=== PATIENT | male | born 1960 | race Caucasian/White ===

== ENCOUNTER 2022-01-12 22:46 | Emergency (ER) | payer MEDICARE, MEDICAID, SELFPAY ==
[2022-01-12 22:55] VITALS: BP 148/87; PULSE 87; RESP 24; TEMP 37.1; O2SAT 93; BMI 34.9
--- NOTE | 2022-01-12 22:55 | XRR_ITS ---
PROCEDURE INFORMATION: Exam: XR Chest Exam date and time: 01/12/2022 11:22 PM Age: 61 years old Clinical indication: Dyspnea; Additional info: SOB TECHNIQUE: Imaging protocol: XR of the chest. Views: 1 view. COMPARISON: No relevant prior studies available. FINDINGS: Lungs: There is a background of centrilobular emphysema and mild pulmonary fibrosis. Strandy and linear opacities are seen in the lower hemithoraces, left slightly more prominent than right likely representing atelectasis. Pleural spaces: Unremarkable. No pleural effusion. No pneumothorax. Heart/Mediastinum: Unremarkable. No cardiomegaly. Bones/joints: Unremarkable. Other findings: A gas densities seen in the epigastrium likely representing a gas-filled viscus. XR/XR chest 1V portable [id number] IMPRESSION: 1. Background of centrilobular emphysema, mild pulmonary fibrosis and probable bilateral basilar atelectasis. 2. Gas-filled viscus seen in the epigastrium.
--- NOTE | 2022-01-12 22:55 | ECG_ITS ---
[facility] Test Date: 2022-01-12 Pat Name: Elvin Nunn Department: Room: Gender: Male Photograph Tinter: : 1960 Requested By: Bereket Caruso Order Number: [id number] Tayler MD: Laura Gusman M.D. Measurements Intervals [place] Rate: 85 P: 67 WA: 217 QRS: -79 QRSD: 82 T: 62 QT: 355 QTc: 424 Interpretive Statements SINUS RHYTHM WITH FIRST DEGREE AV BLOCK LEFT AXIS DEVIATION [QRS AXIS < -30] LOW QRS VOLTAGE IN EXTREMITY LEADS [QRS DEFLECTION < 0.5 mV IN LIMB LEADS] No previous ECG available for comparison Electronically Signed On 01-14-2022 7:29:21 CDT by Laura Gusman M.D. [id number] f
[2022-01-12 23:00] LABS: Basophils % 0.5 %; Eosinophils # 0.3 10^3/uL (0.0-0.8); Eosinophils % 4.6 %; Hematocrit 42.8 % (42.0-52.0); Hemoglobin 13.6 g/dL (11.7-16.6); Lymphocytes # 2.3 10^3/uL (0.8-4.8); Lymphocytes % 34.8 %; Mean Corpuscular HGB Conc 31.8 g/dL (30.0-36.0); Mean Corpuscular Hemoglobin 29.6 pg (28.0-34.0); Monocytes % 15.3 %; Neutrophils # 2.91 10^3/uL (1.8-7.7); Neutrophils % 44.3 %; Nucleated Red Blood Cells % 0 %; Platelet Count 207 10^3/cmm (130-400); Red Cell Distribution Width 13.4 % (12.1-15.1); White Blood Count 6.6 10^3/uL (4.0-10.0)
--- NOTE | 2022-01-12 23:00 | ED_ITS ---
HPI - SOB/Dyspnea General: Chief Complaint: Shortness of Breath/Dyspnea Stated Complaint: SOB Source: patient and EMS Mode of arrival: EMS Limitations: no limitations History of Present Illness: HPI Narrative: 61-year-old male who has a history of asthma states that he moved here from [place] in November has not seen a PCP here. He states that over the last 3 to 4 days he is just been having increasing wheezing and dyspnea along with a cough. He is on baseline oxygen at home as needed here he is 96% on room air. He denies any fever he states he has had a very dry cough that typical with his asthma. Associated symptoms: Deny abdominal pain, chest pain, fever(s), nausea or vomiting Review of Systems Const: Denies: fever(s), chills, body aches or change in appetite Eyes: Denies: blurry vision or eye discomfort ENMT: Denies: throat pain or dental pain Card: Denies: chest pain Resp: Reports: dyspnea and wheezing GI: Denies: abdominal pain, nausea, vomiting or diarrhea : Denies: dysuria Musc: Denies: neck pain or back pain Skin/Breast: Denies: rash Neuro: Denies: headache(s) Psych: Denies: depression Justino/Lymph: Denies: easy bruising All/Imm: Denies: urticaria Physical Exam Const: COMMON NORMALS: no acute distress, patient oriented x3 and healthy appearing HENMT: COMMON NORMALS: normocephalic and atraumatic HEAD & SCALP: normocephalic and atraumatic Eye: COMMON NORMALS: Equal, round and reactive pupils present and EOMs intact bilaterally PUPIL: Yes Equal, round and reactive pupils present Neck/C-Spine: COMMON NORMALS: full ROM and supple Chest: COMMONS NORMALS: normal inspection of the chest and normal palpation of entire chest wall Resp: COMMON NORMALS: normal respiratory effort, No retractions and No use of accessory muscles OTHER: mild wheezes Cardio: COMMON NORMALS: regular rate, regular rhythm and No murmurs present (Cardio) RATE: regular rate RHYTHM: regular rhythm GI: COMMON NORMALS: Normal to inspection, nondistended, normoactive bowel sounds present, Soft to palpation, non-tender and no masses PALPATION: Yes Soft to palpation Extremity: COMMON NORMALS: normal to inspection and full ROM Neuro: COMMON NORMALS: patient oriented x3, moves all extremities and no focal motor deficits Psych: COMMON NORMALS: mental status grossly normal, Normal thought process present and cooperative THOUGHT PROCESS: Normal thought process present Skin: COMMON NORMALS: no rashes or lesions noted and no wounds GENERAL SKIN EXAM: no rashes or lesions noted Course Vital Signs: Vital signs: Vital Signs Temperature 98.7 F 01/12/22 22:55 Pulse Rate 88 01/12/22 23:19 Respiratory Rate 15 01/12/22 23:19 Blood Pressure 148/87 01/12/22 22:55 Pulse Oximetry 96 01/12/22 23:19 MDM - SOB/Dyspnea Medical Decision Making Patient presents here with COPD exacerbation he feels much improved after steroids and breathing treatments his pulse ox 95% on room air. He has no signs of pneumonia will discharge on prednisone he is to follow-up with pulmonology return if worsening. Lab Data : 01/12/22 22:55 01/12/22 22:55 Labs/Radiology: Radiology Impressions Chest X-Ray 01/12/22 22:55 IMPRESSION: 1. Background of centrilobular emphysema, mild pulmonary fibrosis and probable bilateral basilar atelectasis. 2. Gas-filled viscus seen in the epigastrium. Laboratory Results WBC 6.6 10^3/uL (4.0-10.0) 01/12/22 22:55 RBC 4.60 10^6/uL (4.1-5.3) 01/12/22 22:55 Hgb 13.6 g/dL (11.7-16.6) 01/12/22 22:55 Hct 42.8 % (42.0-52.0) 01/12/22 22:55 MCV 93.0 fl (80-94) 01/12/22 22:55 MCH 29.6 pg (28.0-34.0) 01/12/22 22:55 MCHC 31.8 g/dL (30.0-36.0) 01/12/22 22:55 RDW 13.4 % (12.1-15.1) 01/12/22 22:55 Plt Count 207 10^3/cmm (130-400) 01/12/22 22:55 MPV 10.0 fL (7.4-10.4) 01/12/22 22:55 Neut % (Auto) 44.3 % 01/12/22 22:55 Lymph % (Auto) 34.8 % 01/12/22 22:55 [place] % (Auto) 15.3 % 01/12/22 22:55 Eos % (Auto) 4.6 % 01/12/22 22:55 Baso % (Auto) 0.5 % 01/12/22 22:55 Neut # (Auto) 2.91 10^3/uL (1.8-7.7) 01/12/22 22:55 Lymph # (Auto) 2.3 10^3/uL (0.8-4.8) 01/12/22 22:55 [place] # (Auto) 1.0 10^3/uL (0.2-0.9) H 01/12/22 22:55 Eos # (Auto) 0.3 10^3/uL (0.0-0.8) 01/12/22 22:55 Baso # (Auto) 0.0 10^3/uL (0.0-0.1) 01/12/22 22:55 Nucleated RBC % (auto) 0 % 01/12/22 22: Nucleated RBCs # 0.0 /100WBC 01/12/22 22:55 PT 12.10 SECONDS (12.1-14.9) 01/12/22 22:55 INR 0.86 (0.8-1.2) 01/12/22 22:55 Sodium 137 mmol/L (136-145) 01/12/22 22:55 Potassium 4.0 mmol/L (3.5-5.1) 01/12/22 22:55 Chloride 102 mmol/L (98-107) 01/12/22 22:55 Carbon Dioxide 27 mmol/L (22-29) 01/12/22 22:55 Anion Gap 12.0 (5-19) 01/12/22 22:55 BUN 17 mg/dL (8-23) 01/12/22 22:55 Creatinine 0.8 mg/dL (0.7-1.2) 01/12/22 22:55 GFR Calculation 98.0 mL/min (90-130) 01/12/22 22:55 Glucose 134 mg/dL (65-115) H 01/12/22 22:55 Calculated Osmolality 288 mOsm/kg (285-295) 01/12/22 22:55 Calcium 9.0 mg/dL (8.5-10.5) 01/12/22 22:55 Total Bilirubin 0.2 mg/dL (0.15-1.2) 01/12/22 22:55 AST 17 U/L (0-40) 01/12/22 22:55 ALT 15 U/L (0-41) 01/12/22 22:55 Alkaline Phosphatase 97 IU/L (40-130) 01/12/22 22:55 NT-Pro-B Natriuret Pep 85 pg/mL (0-125) 01/12/22 22:55 Total Protein 7.1 g/dL (6.6-8.7) 01/12/22 22:55 Albumin 3.8 g/dL (3.5-5.2) 01/12/22 22:55 Globulin 3.3 g/dL (1.3-4.6) 01/12/22 22:55 EKG Data EKG 1: I personally reviewed and interpreted this EKG as follows: EKG Interpretation Date: 01/12/22 EKG interpretation time: 22:54 Interpretation: Normal sinus rhythm no ST or T wave normalities QRS 82 QTC 398 Discharge Plan Discharge Patient Disposition: Home Clinical Impression: Asthma with exacerbation Qualifiers: Asthma severity: unspecified severity Asthma persistence: unspecified Qualified Code(s): J45.901 - Unspecified asthma with (acute) exacerbation Condition: Stable Prescriptions: New cephalexin 500 mg capsule 500 mg PO TID 7 Days Qty: 21 0RF prednisone 50 mg tablet 50 mg PO DAILY Qty: 5 0RF Discharge Orders: Discharge ED (Routine); Ordered 01/13/22 Ordered By: Bereket Caruso Referrals: Datar,Mark López MD [Physician] - 1-3 days Discharge Diet: Advance as tolerated Discharge Activity: Resume usual activity Patient Instructions: Asthma (ED) Coding Level of Care Code ED Cullet Crusher for Chg Fwd Exam Comprehensive
[2022-01-12 23:14] LABS: INR 0.86 (0.8-1.2)
[2022-01-12 23:19] VITALS: PULSE 88; RESP 15; O2SAT 96
[2022-01-12] MEDS: ipratropium-albuterol 3 mL Neb INHALATION (23:19)
[2022-01-12 23:27] LABS: Alanine Aminotransferase 15 U/L (0-41); Albumin Level 3.8 g/dL (3.5-5.2); Alkaline Phosphatase 97 IU/L (40-130); Aspartate Amino Transferase 17 U/L (0-40); Blood Urea Nitrogen 17 mg/dL (8-23); Carbon Dioxide 27 mmol/L (22-29); Chloride 102 mmol/L (98-107); Globulin 3.3 g/dL (1.3-4.6); Glucose 134 mg/dL (65-115); NT Pro B Type Natriuretic Pept 85 pg/mL (0-125); Osmolality Calculated 288 mOsm/kg (285-295); Sodium 137 mmol/L (136-145); Total Bilirubin 0.2 mg/dL (0.15-1.2); Total Protein 7.1 g/dL (6.6-8.7)
[2022-01-13 01:46] VITALS: BP 131/78; PULSE 85; RESP 20; O2SAT 92
--- NOTE | 2022-01-13 09:16 | DCPLANNER ---
Addendum entered by Stephie Saucedo 02/21/22 17:51: Patient had a follow up appointment scheduled with [facility] - patient did attend appointment. Addendum entered by Stephie Saucedo 01/14/22 15:35: Patient has a follow up appointment scheduled for Thursday, February 17, 2022 at 2:[address] Castellanos at [facility] for pulmonlogy. backpackers manager called patients sister and gave her the appointment information. Original Note: backpackers manager had message to schedule a follow up appointment for patient with [facility]. backpackers manager sent patients information to the front staff at [facility]. Patients information will be printed and reviewed. Clinic will notify lining caser of the appointment, lining caser will call patient with appointment information.
== END 2022-01-13 01:51 | disposition home or self-care (01) ==
PROVIDERS: Emergency Provider Emergency Medicine
DX: J45.901 Unspecified asthma with (acute) exacerbation (principal); Z99.81 Dependence on supplemental oxygen
CPT/HCPCS: 71045; 80053; 83880; 85025; 85610; 93005; 94640; 99283; J7611

== ENCOUNTER → 2022-02-17 13:39 | Outpatient (BNVA) | payer MEDICARE, MEDICAID, SELFPAY | PROVIDERS: Visit Provider Internal Medicine Pulmonary Disease | DX: J45.909 Unspecified asthma, uncomplicated (principal); J43.9 Emphysema, unspecified; J84.10 Pulmonary fibrosis, unspecified; R06.02 Shortness of breath; Z09 Encounter for follow-up examination after completed treatment for conditions other than malignant neoplasm; Z87.891 Personal history of nicotine dependence | CPT/HCPCS: 82785; 86003; 99204 ==

== ENCOUNTER 2022-03-26 12:39 | Outpatient (CLI) | payer MEDICARE, MEDICAID, SELFPAY ==
--- NOTE | 2022-03-26 13:15 | PFTS_ITS ---
Date of Study:03/26/22 Date of Dictation: 03/29/22 MECHANICS: Postbronchodilator forced vital capacity (FVC) is reduced. Postbronchodilator forced expiratory volume in one second (FEV1) is severely reduced. FEV1/FVC is reduced. There is significant response to bronchodilator FLOW VOLUME LOOP: Sloping of expiratory limb suggestive of airflow obstruction. LUNG VOLUMES: Total lung capacity (TLC) is normal. Residual volume (RV) is increased suggesting air trapping. DIFFUSING CAPACITY FOR CARBON MONOXIDE: mildly reduced. INTERPRETATION: The Spirometry showed severe airflow obstruction. There is significant response to bronchodilators. Lung volumes suggestive of moderate air trapping. There is mild gas transfer defect. Clinical correlation recommended. MTDD
--- NOTE | 2022-03-26 14:00 | CT_ITS ---
WS: [id number] CT CHEST HIGH-RESOLUTION TECHNIQUE: Noncontrast CT of the chest with coronal and sagittal reformatted images. High-resolution imaging with inspiration and expiration imaging. Supine imaging. CLINICAL INFORMATION: pulmonary fibrosis COMPARISON: None. DLP: 1892.[address] scans at [facility] use at least one of these dose optimization techniques: automated e xposure control; mA and/or kV adjustment per patient size (includes targeted exams where dose is matc hed to clinical indication); or iterative reconstruction. FINDINGS: Both lungs are well aerated. No focal pneumonia or pleural fluid. Subsegmental atelectasis in the RIG HT lower lobe and lingula. Subsegmental atelectasis with slight hazy groundglass infiltrates in the R IGHT upper lobe anteriorly likely inflammatory. Bronchiectasis in the RIGHT greater than LEFT lower l obes and RIGHT middle lobe with mild endobronchial thickening. No subpleural honeycombing. Normal caliber thoracic aorta. Coronary calcification. No mediastinal or hilar lymphadenopathy. No ax illary lymphadenopathy. Fluid distended stomach with air-fluid level. Normal GE junction. Adrenal glands are normal. Noncontr ast spleen is normal. Normal visualized noncontrast pancreas. Gallbladder is contracted. Normal calib er upper abdominal aorta. Mild thoracic kyphosis with Schmorl's nodes in the mid and lower thoracic s pine. Tiny esophageal hiatal hernia with mild circumferential thickening in the distal esophagus and GE junction. This can be seen with esophagitis. Recommend clinical correlation. This can be further e valuated with endoscopy. CT/CT chest wo con [id number] IMPRESSION: 1. No subpleural honeycombing. 2. Bronchiectasis in RIGHT greater than LEFT lower lobes with mild endobronchi al thickening. 3. Subsegmental atelectasis in the RIGHT lower lobe and lingula. 4. Slight subsegmental atelectasis in RIGHT upper lobe with vague hazy groundg lass opacities likely inflammatory. 5. Moderate chronic emphysematous changes. Mild diffuse air trapping on the ex piratory imaging. This may be effort related. 6. Mild circumferential diffuse thickening at the GE junction and distal esoph vivi. This can be seen with esophagitis but recommend follow-up with endoscopy to exclude neoplasm. No focal lesions. 7. No other significant findings.
== END 2022-03-26 12:40 | disposition home or self-care (01) ==
LOC: RT 12:42
PROVIDERS: PCP Family Medicine; Visit Provider Internal Medicine Pulmonary Disease
DX: J43.9 Emphysema, unspecified (principal); J84.10 Pulmonary fibrosis, unspecified
CPT/HCPCS: 71250; 94060; 94618; 94726; 94729; J7614

== ENCOUNTER → 2022-04-03 09:43 | Outpatient (BNVA) | payer MEDICARE, MEDICAID, SELFPAY | PROVIDERS: PCP Family Medicine; Visit Provider Internal Medicine Pulmonary Disease | DX: J44.9 Chronic obstructive pulmonary disease, unspecified (principal); J45.50 Severe persistent asthma, uncomplicated; Z79.52 Long term (current) use of systemic steroids; K21.9 Gastro-esophageal reflux disease without esophagitis; Z87.891 Personal history of nicotine dependence | CPT/HCPCS: 99214 ==

== ENCOUNTER → 2022-05-07 14:14 | Outpatient (BNVA) | payer MEDICARE, MEDICAID, SELFPAY | PROVIDERS: PCP Family Medicine; Visit Provider Nurse Practitioner | DX: R25.1 Tremor, unspecified (principal); F41.9 Anxiety disorder, unspecified; J45.909 Unspecified asthma, uncomplicated; Z87.891 Personal history of nicotine dependence | CPT/HCPCS: 82607; 84443; 99204 ==

== ENCOUNTER → 2022-06-11 09:46 | Outpatient (BNVA) | payer MEDICARE, MEDICAID, SELFPAY | PROVIDERS: PCP Family Medicine; Visit Provider Internal Medicine Pulmonary Disease | DX: J45.50 Severe persistent asthma, uncomplicated (principal); J44.9 Chronic obstructive pulmonary disease, unspecified; K21.9 Gastro-esophageal reflux disease without esophagitis; H53.8 Other visual disturbances; Z79.52 Long term (current) use of systemic steroids; J82.83 Eosinophilic asthma; Z87.891 Personal history of nicotine dependence; Z77.22 Contact with and (suspected) exposure to environmental tobacco smoke (acute) (chronic) | CPT/HCPCS: 99214 ==

== ENCOUNTER 2022-06-20 10:46 | Emergency (ER) | payer MEDICARE, MEDICAID, SELFPAY ==
[2022-06-20] VITALS (12 sets, daily range): BP systolic 117–142; BP diastolic 70–95; PULSE 78–91; RESP 16–21; TEMP 36.7; O2SAT 87–94
--- NOTE | 2022-06-20 10:57 | ECG_ITS ---
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 Measurements Intervals [place] Rate: 79 P: 23 NM: 214 QRS: 94 QRSD: 85 T: 25 QT: 357 QTc: 411 Interpretive Statements SINUS RHYTHM WITH FIRST DEGREE AV BLOCK BORDERLINE RIGHT AXIS DEVIATION [QRS AXIS > 90] Compared to ECG 01/12/2022 22:54:24 Left-axis deviation no longer present Electronically Signed On 06-20-2022 16:23:10 CDT by Laura Gusman M.D. [id number] f
--- NOTE | 2022-06-20 10:58 | XR_ITS ---
WS: [id number] Portable AP upright chest, 06/20/2022 Clinical Data: dyspnea/cough Comparison: Portable chest, 01/12/2022. Findings: No nodules, masses or effusions are seen. The heart is normal. The pulmonary vascularity is not increased. No pneumonia or pneumothorax is seen. The aortic arch and descending thoracic aorta s hows tortuosity. There is minimal bibasilar atelectasis. XR/XR chest 1V portable [id number] Impression: Atherosclerosis.
--- NOTE | 2022-06-20 11:08 | W.ED.ASTHMA ---
HPI - Asthma General: Chief Complaint: Asthma Stated Complaint: ASTHMA EXACERBATION Time Seen by Provider: 06/20/22 10:47 Source: patient Mode of arrival: ambulatory History of Present Illness: 62-year-old male brought in by ambulance complaining of asthma exacerbation. Use nebulizer at home did seem to help for mornings not been able to find his inhaler. Patient has history of significant asthma with pulmonary fibrosis he seen pulmonology in the past he supposed to be on oxygen continuously but is not been using it. He avoids it because he only has a concentrator that is a large and mobile unit he does not have it long enough oxygen tubing to get around the house and when he uses it he cannot leave the house so he just goes without a good portion of the time. He denies any chest pain any fever sweats or chills. MD complaint: asthma attack , shortness of breath and wheezing Onset (ago): hour(s) Severity: moderate Associated symptoms: Reports productive cough; Deny chest pain, fever(s), hemoptysis, leg edema, non-productive cough or syncope Asthma History: adult onset and history of frequent attacks Treatments Prior to Arrival: inhaled bronchodilator Review of Systems Const: Denies: fever(s), chills, fatigue or malaise ENMT: Denies: throat pain, ear or mastoid pain, nasal discharge or nasal congestion Card: Denies: chest pain or syncope Resp: Reports: dyspnea, productive cough and wheezing; Denies: non-productive cough or hemoptysis GI: Denies: abdominal pain, nausea, vomiting, hematemesis, coffee ground emesis, diarrhea, constipation, bloating, hematochezia or melena : Denies: flank pain, difficulty urinating, dysuria, urinary frequency or urinary urgency Skin/Breast: Denies: rash or pruritus PFSH ED PFSH: Medical History Cognitive impairment Pulmonary emphysema with fibrosis of lung Surgical History History of cataract extraction bilateral History of tonsillectomy Hx of appendectomy Family History Other Dementia Stroke Denies family history of Diabetes CAD (coronary artery disease) Clotting disorder Hyperlipidemia Psychiatric illness Chronic kidney disease (CKD) Suicide Anesthesia complication Bleeding disorder Family history of premature coronary artery disease Lung disease Cancer Hypertension Social History Smoking and tobacco status: former smoker Quit status (tobacco): has quit using tobacco Year quit tobacco: 2017 Former quit date comment: 1pack per month x 2 years Alcohol intake: never History of recent travel: No Physical Exam Const: COMMON NORMALS: no acute distress GENERAL APPEARANCE: cooperative and comfortable ORIENTATION/CONSCIOUSNESS: Yes awake, Yes oriented to person, Yes oriented to place and Yes oriented to time HENMT: COMMON NORMALS: normocephalic, atraumatic and hearing grossly normal bilaterally HEAD & SCALP: normocephalic and atraumatic FACE & SINUS: no fluctuance Resp: EFFORT & INSPECTION: Yes tachypneic and Yes labored AUSCULTATION: rhonchi and wheezes OTHER: Significant improvement after nebulizer treatment Cardio: COMMON NORMALS: regular rate, regular rhythm and No murmurs present (Cardio) RATE: regular rate RHYTHM: regular rhythm GI: COMMON NORMALS: Soft to palpation and No hepatosplenomegaly present AUSCULTATION: Yes normoactive bowel sounds PALPATION: Yes Soft to palpation, No Tenderness to palpation present (GI), No Guarding due to palpation present (GI) and Yes No hepatosplenomegaly present Extremity: COMMON NORMALS: normal to inspection, capillary refill normal, no clubbing, cyanosis or edema, no calf tenderness and no pedal edema Neuro: SENSORIUM/ORIENTATION: Yes oriented to person, Yes oriented to place and Yes oriented to time Skin: COMMON NORMALS: no rashes or lesions noted GENERAL SKIN EXAM: no rashes or lesions noted Course Vital Signs: Vital signs: Vital Signs Temperature 98.1 F 06/20/22 10:48 Pulse Rate 80 06/20/22 15:35 Respiratory Rate 16 06/20/22 15:35 Blood Pressure 120/70 06/20/22 15:35 Pulse Oximetry 91 06/20/22 15:35 Oxygen Delivery Me thod 06/20/22 15:00 Oxygen Flow Rate 2 06/20/22 15:00 MDM - Asthma Medical Decision Making Improved with steroid and nebs. Discharged home on tapering steroids we will also get him set up for oxygen concentrator. Use albuterol every 4 hours while awake regularly follow-up with pulmonology next week return if is worsening problems. Medical Records I reviewed the patient's medical records. Lab Data I reviewed the patient's lab results. : 06/20/22 11:23 06/20/22 11:23 Radiology Impressions Chest X-Ray 06/20/22 10:58 Impression: Atherosclerosis. Laboratory Results WBC 7.4 10^3/uL (4.0-10.0) 06/20/22 11: RBC 4.87 10^6/uL (4.1-5.3) 06/20/22 11:23 Hgb 14.2 g/dL (11.7-16.6) 06/20/22 11: Hct 44.7 % (42.0-52.0) 06/20/22 11: MCV 91.8 fl (80-94) 06/20/22 11:23 MCH 29.2 pg (28.0-34.0) 06/20/22 11: MCHC 31.8 g/dL (30.0-36.0) 06/20/22 11:23 RDW 13.6 % (12.1-15.1) 06/20/22 11:23 Plt Count 171 10^3/cmm (130-400) 06/20/22 11: MPV 10.1 fL (7.4-10.4) 06/20/22 11:23 Neut % (Auto) 60.8 % 06/20/22 11:23 Lymph % (Auto) 22.7 % 06/20/22 11:23 [place] % (Auto) 11.8 % 06/20/22 11:23 Eos % (Auto) 3.9 % 06/20/22 11:23 Baso % (Auto) 0.4 % 06/20/22 11:23 Neut # (Auto) 4.52 10^3/uL (1.8-7.7) 06/20/22 11:23 Lymph # (Auto) 1.7 10^3/uL (0.8-4.8) 06/20/22 11:23 [place] # (Auto) 0.9 10^3/uL (0.2-0.9) 06/20/22 11:23 Eos # (Auto) 0.3 10^3/uL (0.0-0.8) 06/20/22 11:23 Baso # (Auto) 0.0 10^3/uL (0.0-0.1) 06/20/22 11:23 Nucleated RBC % (auto) 0 % 06/20/22 11:23 Nucleated RBCs # 0.0 /100WBC 06/20/22 11:23 Specimen Type Arterial 06/20/22 11:14 Sample Site Radial, left 06/20/22 11:14 ABG pH 7.41 (7.35-7.45) 06/20/22 11:14 ABG pCO2 46.5 mmHg (35-45) H 06/20/22 11:14 ABG pO2 63.5 mmHg (80.0-100.0) L 06/20/22 11:14 ABG HCO3 29.6 mmol/L (22-26) H 06/20/22 11:14 ABG O2 Saturation 92.6 06/20/22 11:14 ABG Base Excess 4.1 mmol/L (-2.0-2.0) H 06/20/22 11:14 Wilmer Test Pos 06/20/22 11:14 A-a O2 Gradient 4.0 mmHg (5-10) L 06/20/22 11:14 Hematocrit 45.0 % (42-52) 06/20/22 11:14 Hgb O2 Saturation 91.7 % (95-100) L 06/20/22 11:14 Carboxyhemoglobin < 1.0 %THgb (0.4-20.1) 06/20/22 11:14 Methemoglobin 0.2 % (0.4-1.5) L 06/20/22 11:14 Total Hemoglobin 14.7 g/dL (14-18) 06/20/22 11:14 Sodium 137.0 mmol/L (131-143) 06/20/22 11:14 Potassium 3.9 mmol/L (3.5-5.0) 06/20/22 11:14 Glucose 98.0 mg/dL (70-115) 06/20/22 11:14 Ionized Calcium 1.2 mmol/L (1.1-1.4) 06/20/22 11:14 O2 Delivery Device Nc 06/20/22 11:14 O2 Liters/Min 2.0 % 06/20/22 11:14 Soil Technologist ID Cak 06/20/22 11:14 Sodium 138 mmol/L (136-145) 06/20/22 11:23 Potassium 4.2 mmol/L (3.5-5.1) 06/20/22 11:23 Chloride 100 mmol/L (98-107) 06/20/22 11:23 Carbon Dioxide 28 mmol/L (22-29) 06/20/22 11:23 Anion Gap 14.2 (5-19) 06/20/22 11:23 BUN 18 mg/dL (8-23) 06/20/22 11:23 Creatinine 0.8 mg/dL (0.7-1.2) 06/20/22 11:23 GFR Calculation 97.6 mL/min (90-130) 06/20/22 11:23 Glucose 102 mg/dL (65-115) 06/20/22 11:23 Calculated Osmolality 288 mOsm/kg (285-295) 06/20/22 11:23 Calcium 8.9 mg/dL (8.5-10.5) 06/20/22 11:23 Discharge Plan Discharge Patient Disposition: Home Clinical Impression: Pulmonary emphysema with fibrosis of lung Condition: Stable Prescriptions: New prednisone 20 mg tablet 20 mg PO TID Qty: 15 0RF Rx Instructions: 1 p.o. 3 times daily x3 days, 1 p.o. twice daily x2 days, 1 p.o. daily x2 days No Action montelukast [Singulair] 10 mg tablet 10 mg PO DAILY Qty: 30 3RF primidone 50 mg tablet 50 mg PO BEDTIME Qty: 30 2RF albuterol sulfate 2.5 mg /3 mL (0.083 %) solution for nebulization 2.5 mg inhalation Q4H PRN (Reason: shortness of breath or wheezing) Qty: 180 0RF albuterol sulfate 90 mcg/actuation HFA aerosol inhaler 2 puff inhalation Q6H PRN (Reason: shortness of breath or wheezing) Qty: 8.5 2RF Breztri Aerosphere 160-9-4.8 mcg/actuation HFA aerosol inhaler 2 inh inhalation BID Qty: 10.7 3RF citalopram 20 mg tablet 10 mg PO DAILY Qty: 90 0RF pantoprazole 40 mg tablet,delayed release (DR/EC) 40 mg PO DAILY Qty: 30 2RF Fasenra Pen 30 mg/mL auto-injector 30 mg SUBCUT Q28D Qty: 1 2RF Rx Instructions: Loading dose Symbicort 160-4.5 mcg/actuation HFA aerosol inhaler 2 puff INHALATION BID NyQuil 7.5-60-30-1,000 mg/30 mL Liquid 30 ml PO EVERY OTHER DAY Tussin 100 mg/5 mL Liquid 200 mg PO Q4H PRN (Reason: Congestion) Discharge Orders: Discharge ED (Routine); Ordered 06/20/22 Ordered By: Campbell Espinoza Other Ambulatory Orders: DME: Oxygen (Order) Location: None Selected Ordered By: Campbell Espinoza Referrals: Shweta Márquez DO [Primary Care Provider] - Discharge Diet: Usual diet Discharge Activity: Limit activity as instructed Patient Instructions: Opioid Safety, Pain Management Activity Restrictions/Additional Instructions: Follow up with Dr. Fortune within the next week, Use oxygen continiously. Coding Level of Care Code ED Digester Operator Helper for [place]
--- NOTE | 2022-06-20 11:09 | PC.NURSE ---
pt reports an asthma attack that started at 0900 this morning and could not find his inhaler so he used his nebulizer with minimal improvement. denies chest pain, nausea, dizziness, or lightheadedness. reports a headache. pt lung sounds deminished but clear throughout. skin pink/warm/dry. pt speaking in complete sentences without difficulty.
[2022-06-20] MEDS: ipratropium-albuterol 3 mL Neb INHALATION (11:14)
[2022-06-20 11:26] LABS: ABG PCO2 46.5 mmHg (35-45); ABG PH Result 7.41 (7.35-7.45); Base Excess ABG 4.1 mmol/L (-2.0-2.0); Blood Gas Allen Test Pos; Blood Gas Operator Identificat CAK; Blood Gas Sample Site Radial, left; Blood Gas Sample Type Arterial; Carboxyhemoglobin < 1.0 %THgb (0.4-20.1); HCO3 ABG 29.6 mmol/L (22-26); HGB O2 Sat 91.7 % (95-100); Ionized Calcium Level - ABG 1.2 mmol/L (1.1-1.4); Methemoglobin 0.2 % (0.4-1.5); Oxygen Device NC; Oxygen Saturation ABG 92.6; PO2 ABG 63.5 mmHg (80.0-100.0); Potassium Level - ABG 3.9 mmol/L (3.5-5.0); Total Hemoglobin 14.7 g/dL (14-18)
[2022-06-20 11:32] LABS: Basophils % 0.4 %; Eosinophils # 0.3 10^3/uL (0.0-0.8); Eosinophils % 3.9 %; Hematocrit 44.7 % (42.0-52.0); Hemoglobin 14.2 g/dL (11.7-16.6); Lymphocytes # 1.7 10^3/uL (0.8-4.8); Lymphocytes % 22.7 %; Mean Corpuscular HGB Conc 31.8 g/dL (30.0-36.0); Mean Corpuscular Hemoglobin 29.2 pg (28.0-34.0); Mean Corpuscular Volume 91.8 fl (80-94); Mean Platelet Volume 10.1 fL (7.4-10.4); Monocytes # 0.9 10^3/uL (0.2-0.9); Monocytes % 11.8 %; Neutrophils # 4.52 10^3/uL (1.8-7.7); Neutrophils % 60.8 %; Nucleated Red Blood Cells % 0 %; Platelet Count 171 10^3/cmm (130-400); Red Blood Count 4.87 10^6/uL (4.1-5.3); Red Cell Distribution Width 13.6 % (12.1-15.1); White Blood Count 7.4 10^3/uL (4.0-10.0)
[2022-06-20 11:53] LABS: Anion Gap 14.2 (5-19); Blood Urea Nitrogen 18 mg/dL (8-23); Calcium 8.9 mg/dL (8.5-10.5); Carbon Dioxide 28 mmol/L (22-29); Chloride 100 mmol/L (98-107); Glomerular Filtration Rate 97.6 mL/min (90-130); Glucose 102 mg/dL (65-115); Osmolality Calculated 288 mOsm/kg (285-295); Potassium 4.2 mmol/L (3.5-5.1); Sodium 138 mmol/L (136-145)
--- NOTE | 2022-06-20 12:46 | PC.NURSE ---
notified by pt that he does not have any portable oxygen but he does have a concentrator at home. physician notified.
--- NOTE | 2022-06-20 14:56 | PC.NURSE ---
pt resting in bed, family at bedside. discharge pending delivery of portable oxygen
== END 2022-06-20 15:36 | disposition home or self-care (01) ==
PROVIDERS: Emergency Provider Family Medicine; PCP Family Medicine
DX: J45.909 Unspecified asthma, uncomplicated (principal); J43.9 Emphysema, unspecified; J84.10 Pulmonary fibrosis, unspecified
CPT/HCPCS: 36600; 71045; 80048; 80051; 82330; 82805; 85025; 93005; 94640; 96374; 99285; J2930

== ENCOUNTER 2022-07-01 12:28 | Outpatient (CLI) | payer MEDICARE, MEDICAID, SELFPAY ==
--- NOTE | 2022-07-01 11:45 | MR_ITS ---
WS: [id number] MRI BRAIN WITH AND WITHOUT CONTRAST HISTORY: Double vision and memory loss for 2 months. COMPARISON: None available. TECHNIQUE: Multiplanar imaging performed through the brain with MultiHance 20 ml's IV. No acute infarcts are seen. Khalil-white matter differentiation is well preserved. Very mild small vess el ischemic disease in the frontotemporal lobes. No prior infarct. No susceptibility artifacts or prior lacunar infarcts. Ventricles and extra-axial spaces are normal. Clivus and pituitary gland are normal. Visualized posterior fossa and brainstem are also normal. Postcontrast images are negative for masses or vascular malformations. Dural venous sinuses are normal. Paranasal sinuses: Well aerated with no significant disease. Mastoid air cells: Normal. Calvarium and scalp: Normal. MR/MR head wo/w con [id number] IMPRESSION: 1. No acute infarct or mass. 2. Mild small vessel ischemic disease. 3. Normal size ventricles.
[2022-07-01] MEDS: gadobenate dimeglumine 20 mL vial IV (13:21)
== END 2022-07-01 12:29 | disposition home or self-care (01) ==
LOC: RAD 12:29
PROVIDERS: PCP Family Medicine; Visit Provider Nurse Practitioner
DX: R25.1 Tremor, unspecified (principal); R41.89 Other symptoms and signs involving cognitive functions and awareness
CPT/HCPCS: 70553

== ENCOUNTER 2022-07-04 09:41 | Outpatient (CLI) | payer MEDICARE, MEDICAID, SELFPAY ==
--- NOTE | 2022-07-04 10:15 | USCV_ITS ---
Elvin Nunn Age: 62 Gender: M : 1960 Exam Date: 07/04/2022 10:21 Ordering Phys: Shweta Márquez DO Technologist: Sabi Landry Exam Location: [facility] – [place] Indication: SWOLLEN LT LEG HISTORY: Swollen Left Leg PROCEDURES: Venous duplex imaging was performed in only the left lower extremity. The following venous structures were evaluated: common femoral vein, profunda vein, proximal portion of the greater saphenous vein, superficial femoral vein, and the popliteal vein. In addition, the posterior tibial and peroneal trunk were evaluated. Serial compression, augmentation maneuvers, and spectral Doppler flow evaluation were performed. FINDINGS: Normal 2-D Doppler and augmentation and compressibility throughout the lower extremity venous structures. Additional imaging through the proximal calf veins also reveals no thrombus. Limited evaluation of the greater saphenous vein is patent with no thrombus. CONCLUSIONS No DVT left lower extremity. Dr. Yolanda Wiley DO (Electronically Signed) Final Date: 04 July 2022 15:24 S
== END 2022-07-04 09:42 | disposition home or self-care (01) ==
PROVIDERS: PCP Family Medicine; Visit Provider Family Medicine
DX: M79.605 Pain in left leg (principal); M79.89 Other specified soft tissue disorders
CPT/HCPCS: 93971

== ENCOUNTER 2022-08-04 06:51 | Outpatient (CLI) | payer MEDICARE, MEDICAID, SELFPAY ==
--- NOTE | 2022-08-04 06:15 | USCV_ITS ---
Elvin Nunn Age: 62 Gender: M : 1960 Exam Date: 08/04/2022 07:02 Ordering Phys: Mark Fortune MD Technologist: CANDIDO [place] [facility] [place]: [place] hand/leg weakness Risk Factors: Previous Vascular Surgery: Right Brachial BP: / Left Brachial BP: / Right Left Velocity (cm/s) Spectral Plaque Velocity (cm/s) Spectral Plaque Syst/Diast Broadening Syst/Diast Broadening 44.00/ 15.80 Prox CCA 89.30 / 33.40 46.00/ 13.80 Mid CCA 61.40 / 26.40 41.40/ 15.80 Distal CCA 55.20 / 28.00 53.60/ 21.80 Prox ICA 72.20 / 36.50 44.70/ 17.10 Mid ICA 79.20 / 32.60 62.40/ 25.60 Distal ICA 35.80 / 16.60 97.90 ECA 89.30 1.36 ICA/CCA 0.89 Antegrade Vertebral Antegrade 19.00/ 4.70 cm/s 49.10/ 18.20 cm/s Tri Subclavian Tri 84.10 126.8 0 CONCLUSIONS Right ICA stenosis <50%. Mild atheromatous plaque right carotid bulb/ICA. Left ICA stenosis <50%. Mild atheromatous plaque left carotid bulb/ICA. Normal antegrade Doppler flow noted in the right vertebral artery. Normal antegrade Doppler flow noted in the left vertebral artery. Roddy Anand MD (Electronically Signed) Final Date: 04 August 2022 09:41 S
== END 2022-08-04 06:52 | disposition home or self-care (01) ==
LOC: RAD 06:53
PROVIDERS: PCP Family Medicine; Visit Provider Internal Medicine Pulmonary Disease
DX: R53.1 Weakness (principal); I65.23 Occlusion and stenosis of bilateral carotid arteries
CPT/HCPCS: 93880

== ENCOUNTER 2022-08-07 07:21 | Emergency (ER) | payer MEDICARE, MEDICAID, SELFPAY ==
[2022-08-07] VITALS (7 sets, daily range): BP systolic 105–126; BP diastolic 69–73; PULSE 72–94; RESP 18–20; TEMP 36.6; O2SAT 93–97
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
--- NOTE | 2022-08-07 07:30 | XR_ITS ---
WS: [id number] Portable AP upright chest, 08/07/2022 Clinical Data: cough, sob Comparison: Portable chest, 06/20/2022 Findings: No nodules, masses or effusions are seen. The heart is normal. The pulmonary vascularity is not increased. No pneumonia or pneumothorax is seen. The aortic arch and descending thoracic aorta s how minimal tortuosity. XR/XR chest 1V portable [id number] Impression: Atherosclerosis.
--- NOTE | 2022-08-07 08:00 | PC.NURSE ---
pt placed on continuous nibp ,spo2, and cm
[2022-08-07] MEDS: ipratropium-albuterol 3 mL Neb INHALATION (08:01)
[2022-08-07] MEDS: benzonatate 100 mg Capsule 200 MG PO (08:03)
[2022-08-07 08:06] LABS: Basophils % 0.2 %; Eosinophils # 0.3 10^3/uL (0.0-0.8); Eosinophils % 5.7 %; Hematocrit 40.7 % (42.0-52.0); Lymphocytes # 0.9 10^3/uL (0.8-4.8); Mean Corpuscular HGB Conc 31.9 g/dL (30.0-36.0); Mean Corpuscular Hemoglobin 29.4 pg (28.0-34.0); Mean Corpuscular Volume 92.1 fl (80-94); Monocytes # 0.8 10^3/uL (0.2-0.9); Monocytes % 16.1 %; Neutrophils # 2.83 10^3/uL (1.8-7.7); Neutrophils % 59.4 %; Nucleated Red Blood Cells % 0 %; Platelet Count 238 10^3/cmm (130-400); Red Blood Count 4.42 10^6/uL (4.1-5.3); Red Cell Distribution Width 13.1 % (12.1-15.1); White Blood Count 4.8 10^3/uL (4.0-10.0)
[2022-08-07 08:39] LABS: Alanine Aminotransferase 11 U/L (0-41); Albumin Level 3.5 g/dL (3.5-5.2); Alkaline Phosphatase 82 U/L (40-130); Aspartate Amino Transferase 16 U/L (0-40); Blood Urea Nitrogen 14 mg/dL (8-23); Calcium 8.5 mg/dL (8.5-10.5); Carbon Dioxide 27 mmol/L (22-29); Chloride 102 mmol/L (98-107); Globulin 3.1 g/dL (1.3-4.6); Glomerular Filtration Rate 97.6 mL/min (90-130); Glucose 92 mg/dL (65-115); Osmolality Calculated 286 mOsm/kg (285-295); Sodium 138 mmol/L (136-145); Total Bilirubin 0.2 mg/dL (0.15-1.2); Total Protein 6.6 g/dL (6.6-8.7)
--- NOTE | 2022-08-07 12:52 | ED_ITS ---
HPI - SOB/Dyspnea General: Chief Complaint: Shortness of Breath/Dyspnea Stated Complaint: SOB Time Seen by Provider: 08/07/22 07:21 History of Present Illness: HPI Narrative: 59 Associated symptoms: Deny chest pain, dizziness, fever(s), lightheadedness, nausea or vomiting Review of Systems Const: Denies: fever(s) or chills Eyes: Denies: change in vision or blurry vision Card: Denies: chest pain or lightheadedness Resp: Reports: dyspnea; Denies: wheezing or pain on inspiration GI: Denies: nausea, vomiting or diarrhea : Denies: flank pain, difficulty urinating or urinary frequency Skin/Breast: Denies: rash or pruritus Neuro: Denies: headache(s) or dizziness PFSH ED PFSH: Medical History Cognitive impairment Pulmonary emphysema with fibrosis of lung Surgical History History of cataract extraction bilateral History of tonsillectomy Hx of appendectomy Family History Other Dementia Stroke Denies family history of Diabetes CAD (coronary artery disease) Clotting disorder Hyperlipidemia Psychiatric illness Chronic kidney disease (CKD) Suicide Anesthesia complication Bleeding disorder Family history of premature coronary artery disease Lung disease Cancer Hypertension Social History Smoking and tobacco status: former smoker Quit status (tobacco): has quit using tobacco Year quit tobacco: 2018 Former quit date comment: 1pack per month x 2 years Alcohol intake: never History of recent travel: No Physical Exam Const: COMMON NORMALS: no acute distress and alert HENMT: COMMON NORMALS: normocephalic, hearing grossly normal bilaterally and moist oral mucous membranes HEAD & SCALP: normocephalic Chest: COMMONS NORMALS: normal inspection of the chest Resp: EFFORT & INSPECTION: Yes able to speak in complete sentences and No respiratory distress AUSCULTATION: diminished lung sounds diffuse Cardio: RATE: tachycardic RHYTHM: abnormal rhythm GI: COMMON NORMALS: Soft to palpation and non-tender PALPATION: Yes Soft to palpation Extremity: COMMON NORMALS: normal to inspection and capillary refill normal Neuro: COMMON NORMALS: moves all extremities, no focal motor deficits and no sensory deficits noted SENSORIUM/ORIENTATION: Yes alert Psych: COMMON NORMALS: mental status grossly normal, cooperative and speech normal SPEECH: Yes normal speech Skin: COMMON NORMALS: no rashes or lesions noted GENERAL SKIN EXAM: no rashes or lesions noted Course Vital Signs: Vital signs: Vital Signs Temperature 97.9 F 08/07/22 07:21 Pulse Rate 94 08/07/22 09:24 Respiratory Rate 20 H 08/07/22 09:24 Blood Pressure 109/69 08/07/22 09:24 Pulse Oximetry 94 08/07/22 09:24 Oxygen Delivery Me thod 08/07/22 08:02 Oxygen Flow Rate 2 08/07/22 08:02 MDM - SOB/Dyspnea Lab Data : 08/07/22 07:57 08/07/22 07:57 Labs/Radiology: Radiology Impressions Chest X-Ray 08/07/22 07:30 Impression: Atherosclerosis. Laboratory Results WBC 4.8 10^3/uL (4.0-10.0) 08/07/22 07:57 RBC 4.42 10^6/uL (4.1-5.3) 08/07/22 07:57 Hgb 13.0 g/dL (11.7-16.6) 08/07/22 07:57 Hct 40.7 % (42.0-52.0) L 08/07/22 07:57 MCV 92.1 fl (80-94) 08/07/22 07:57 MCH 29.4 pg (28.0-34.0) 08/07/22 07:57 MCHC 31.9 g/dL (30.0-36.0) 08/07/22 07:57 RDW 13.1 % (12.1-15.1) 08/07/22 07:57 Plt Count 238 10^3/cmm (130-400) 08/07/22 07:57 MPV 10.0 fL (7.4-10.4) 08/07/22 07:57 Neut % (Auto) 59.4 % 08/07/22 07:57 Lymph % (Auto) 18.0 % 08/07/22 07:57 [place] % (Auto) 16.1 % 08/07/22 07:57 Eos % (Auto) 5.7 % 08/07/22 07:57 Baso % (Auto) 0.2 % 08/07/22 07:57 Neut # (Auto) 2.83 10^3/uL (1.8-7.7) 08/07/22 07:57 Lymph # (Auto) 0.9 10^3/uL (0.8-4.8) 08/07/22 07:57 [place] # (Auto) 0.8 10^3/uL (0.2-0.9) 08/07/22 07:57 Eos # (Auto) 0.3 10^3/uL (0.0-0.8) 08/07/22 07:57 Baso # (Auto) 0.0 10^3/uL (0.0-0.1) 08/07/22 07:57 Nucleated RBC % (auto) 0 % 08/07/22 07:57 Nucleated RBCs # 0.0 /100WBC 08/07/22 07:57 Sodium 138 mmol/L (136-145) 08/07/22 07:57 Potassium 4.0 mmol/L (3.5-5.1) 08/07/22 07:57 Chloride 102 mmol/L (98-107) 08/07/22 07:57 Carbon Dioxide 27 mmol/L (22-29) 08/07/22 07:57 Anion Gap 13.0 (5-19) 08/07/22 07:57 BUN 14 mg/dL (8-23) 08/07/22 07:57 Creatinine 0.8 mg/dL (0.7-1.2) 08/07/22 07:57 GFR Calculation 97.6 mL/min (90-130) 08/07/22 07:57 Glucose 92 mg/dL (65-115) 08/07/22 07:57 Calculated Osmolality 286 mOsm/kg (285-295) 08/07/22 07:57 Calcium 8.5 mg/dL (8.5-10.5) 08/07/22 07:57 Magnesium 2.0 mg/dL (1.7-2.3) 08/07/22 07:57 Total Bilirubin 0.2 mg/dL (0.15-1.2) 08/07/22 07:57 AST 16 U/L (0-40) 08/07/22 07:57 ALT 11 U/L (0-41) 08/07/22 07:57 Alkaline Phosphatase 82 U/L (40-130) 08/07/22 07:57 Total Protein 6.6 g/dL (6.6-8.7) 08/07/22 07:57 Albumin 3.5 g/dL (3.5-5.2) 08/07/22 07:57 Globulin 3.1 g/dL (1.3-4.6) 08/07/22 07:57 Discharge Plan Discharge Patient Disposition: Home Clinical Impression: Asthma with exacerbation Condition: Stable Prescriptions: New prednisone 20 mg tablet 40 mg PO DAILY 3 Days Qty: 6 0RF Rx Instructions: please start on 08/08/22 azithromycin 250 mg tablet See Rx Instructions .ROUTE .COMPLEX Qty: 6 0RF Rx Instructions: For 250 mg dose pack: take 500 mg today (day 1), then 250 mg for 4 days (days 2-5) benzonatate 100 mg capsule 100 mg PO Q6H PRN (Reason: cough) Qty: 14 0RF No Action montelukast [Singulair] 10 mg tablet 10 mg PO DAILY Qty: 30 3RF albuterol sulfate 90 mcg/actuation HFA aerosol inhaler 2 puff inhalation Q6H PRN (Reason: shortness of breath or wheezing) Qty: 8.5 2RF Breztri Aerosphere 160-9-4.8 mcg/actuation HFA aerosol inhaler 2 inh inhalation BID Qty: 10.7 3RF Fasenra Pen 30 mg/mL auto-injector 30 mg SUBCUT Q28D Qty: 1 2RF Rx Instructions: Loading dose cephalexin 500 mg capsule 500 mg PO TID 10 Days Qty: 30 0RF furosemide [Lasix] 20 mg tablet 20 mg PO QAM Qty: 14 0RF albuterol sulfate 2.5 mg /3 mL (0.083 %) solution for nebulization 2.5 mg inhalation Q4H PRN (Reason: shortness of breath or wheezing) Qty: 180 0RF citalopram 20 mg tablet See Rx Instructions .ROUTE .COMPLEX Qty: 90 0RF Dose Instruction: Take 1 tablet by mouth once daily Rx Instructions: Take 1 tablet by mouth once daily pantoprazole 40 mg tablet,delayed release (DR/EC) See Rx Instructions .ROUTE .COMPLEX Qty: 30 0RF Dose Instruction: Take 1 tablet by mouth once daily Rx Instructions: Take 1 tablet by mouth once daily primidone 50 mg tablet See Rx Instructions .ROUTE .COMPLEX Qty: 30 0RF Dose Instruction: TAKE 1 TABLET BY MOUTH AT BEDTIME Rx Instructions: TAKE 1 TABLET BY MOUTH AT BEDTIME Symbicort 160-4.5 mcg/actuation HFA aerosol inhaler 2 puff INHALATION BID NyQuil 7.5-60-30-1,000 mg/30 mL Liquid 30 ml PO EVERY OTHER DAY Tussin 100 mg/5 mL Liquid 200 mg PO Q4H PRN (Reason: Congestion) Discharge Orders: Discharge ED (Routine); Ordered 08/07/22 Ordered By: Romeo Moody Referrals: Shweta Márquez DO [Primary Care Provider] - Discharge Diet: Advance as tolerated Discharge Activity: Resume usual activity and Increase activity as tolerated Patient Instructions: Asthma (ED), Opioid Safety, Pain Management Activity Restrictions/Additional Instructions: Please follow-up with your primary care provider next week for recheck of your symptoms Coding Level of Care Code ED [employer] Officer for Chg Fwd Exam Comprehensive
== END 2022-08-07 09:25 | disposition home or self-care (01) ==
PROVIDERS: Emergency Provider Student in an Organized Health Care Education/Training Program; PCP Family Medicine
DX: J45.901 Unspecified asthma with (acute) exacerbation (principal); Z87.891 Personal history of nicotine dependence; J43.9 Emphysema, unspecified
CPT/HCPCS: 71045; 80053; 83735; 85025; 94640; 96374; 99284; J2930

== ENCOUNTER 2022-08-11 14:52 | Emergency (ER) | payer MEDICARE, MEDICAID, SELFPAY ==
[2022-08-11 14:55] VITALS: BP 131/80; PULSE 98; RESP 20; TEMP 36.3; O2SAT 92; BMI 35.2
--- NOTE | 2022-08-11 16:03 | XRR_ITS ---
PROCEDURE INFORMATION: Exam: XR Chest Exam date and time: 08/11/2022 5:16 PM Age: 62 years old Clinical indication: Cough and dyspnea; Prior surgery; Surgery type: Stints; Additional info: Dyspnea/cough TECHNIQUE: Imaging protocol: Radiologic exam of the chest. Views: 1 view. COMPARISON: CR XR chest 1V portable [id number] 08/07/2022 8:33 AM FINDINGS: Lungs: Unremarkable. No consolidation. Pleural spaces: Unremarkable. No pleural effusion. No pneumothorax. Heart/Mediastinum: Unremarkable. No cardiomegaly. Bones/joints: Unremarkable. XR/XR chest 1V portable [id number] IMPRESSION: No acute findings.
--- NOTE | 2022-08-11 16:06 | ED_ITS ---
HPI - Asthma General: Chief Complaint: Asthma Stated Complaint: SOB/passing out Time Seen by Provider: 08/11/22 15:48 Source: patient Mode of arrival: ambulatory History of Present Illness: 62-year-old male returns emergency room he was seen last week with what he described an asthma attack chest x-ray was unremarkable he was discharged home on steroids and encouraged to use nebulizers for aggressive pulmonary toilet. He says been using the nebulizers regularly he is continuing to have a cough he is chronically on oxygen at 3 L/min. He tells me he was told to use 4 L/min. He has had minimally productive clear mucus cough. Subjectively he thinks he may have had a fever although he does not have a fever on arrival here. He is 92 to 93% on his portable oxygen and when changed to 3 L by continuous wall oxygen he is 95%. He has chest pain when he coughs that he relates to rib pain from coughing and working hard to breathe. MD complaint: asthma attack Onset (ago): day(s) Severity: moderate Associated symptoms: Reports non-productive cough; Deny chest pain, fever(s), hemoptysis, leg edema, productive cough or syncope Treatments Prior to Arrival: inhaled bronchodilator Review of Systems Const: Denies: fever(s) ENMT: Denies: throat pain, ear or mastoid pain, nasal discharge or nasal congestion Card: Denies: chest pain or syncope Resp: Reports: dyspnea, non-productive cough and wheezing; Denies: productive cough or hemoptysis GI: Denies: abdominal pain, nausea, vomiting, hematemesis, coffee ground emesis, diarrhea, constipation, bloating, hematochezia or melena : Denies: flank pain, difficulty urinating, dysuria, urinary frequency or urinary urgency Skin/Breast: Denies: rash or pruritus PFSH ED PFSH: Medical History Cognitive impairment Pulmonary emphysema with fibrosis of lung Surgical History History of cataract extraction bilateral History of tonsillectomy Hx of appendectomy Family History Other Dementia Stroke Denies family history of Diabetes CAD (coronary artery disease) Clotting disorder Hyperlipidemia Psychiatric illness Chronic kidney disease (CKD) Suicide Anesthesia complication Bleeding disorder Family history of premature coronary artery disease Lung disease Cancer Hypertension Social History Smoking and tobacco status: former smoker Quit status (tobacco): has quit using tobacco Year quit tobacco: 2017 Former quit date comment: 1pack per month x 2 years Alcohol intake: never History of recent travel: No Course Vital Signs: Vital signs: Vital Signs Temperature 97.4 F L 08/11/22 18:47 Pulse Rate 98 08/11/22 18:47 Respiratory Rate 20 H 08/11/22 18:47 Blood Pressure 131/80 08/11/22 18:47 Pulse Oximetry 92 08/11/22 18:47 Oxygen Delivery Me thod 08/11/22 16:32 Oxygen Flow Rate 3 08/11/22 16:32 MDM - Asthma Medical Decision Making COPD/asthma with pulmonary fibrosis. He is improved with nebulizer treatments and steroids. 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 Medical Records I reviewed the patient's medical records. Lab Data I reviewed the patient's lab results. 08/11/22 17:18 08/11/22 17:18 Radiology Impressions Chest X-Ray 08/11/22 16:03 IMPRESSION: No acute findings. Laboratory Results WBC 4.1 10^3/uL (4.0-10.0) 08/11/22 17:18 RBC 5.08 10^6/uL (4.1-5.3) 08/11/22 17:18 Hgb 14.6 g/dL (11.7-16.6) 08/11/22 17:18 Hct 46.2 % (42.0-52.0) 08/11/22 17:18 MCV 90.9 fl (80-94) 08/11/22 17:18 MCH 28.7 pg (28.0-34.0) 08/11/22 17:18 MCHC 31.6 g/dL (30.0-36.0) 08/11/22 17:18 RDW 13.3 % (12.1-15.1) 08/11/22 17:18 Plt Count 244 10^3/cmm (130-400) 08/11/22 17:18 MPV 9.7 fL (7.4-10.4) 08/11/22 17:18 Neut % (Auto) 53.9 % 08/11/22 17:18 Lymph % (Auto) 27.3 % 08/11/22 17:18 Nicholas % (Auto) 17.1 % 08/11/22 17:18 Eos % (Auto) 0.5 % 08/11/22 17:18 Baso % (Auto) 0.2 % 08/11/22 17:18 Neut # (Auto) 2.21 10^3/uL (1.8-7.7) 08/11/22 17:18 Lymph # (Auto) 1.1 10^3/uL (0.8-4.8) 08/11/22 17:18 Nicholas # (Auto) 0.7 10^3/uL (0.2-0.9) 08/11/22 17:18 Eos # (Auto) 0.0 10^3/uL (0.0-0.8) 08/11/22 17:18 Baso # (Auto) 0.0 10^3/uL (0.0-0.1) 08/11/22 17:18 Nucleated RBC % (auto) 0 % 08/11/22 17:18 Nucleated RBCs # 0.0 /100WBC 08/11/22 17:18 Specimen Type Arterial 08/11/22 16:41 Sample Site Radial, left 08/11/22 16:41 ABG pH 7.41 (7.35-7.45) 08/11/22 16:41 ABG pCO2 45.6 mmHg (35-45) H 08/11/22 16:41 ABG pO2 75.1 mmHg (80.0-100.0) L 08/11/22 16:41 ABG HCO3 28.8 mmol/L (22-26) H 08/11/22 16:41 ABG O2 Saturation 95.4 08/11/22 16:41 ABG Base Excess 3.4 mmol/L (-2.0-2.0) H 08/11/22 16:41 Wilmer Test Pos 08/11/22 16:41 A-a O2 Gradient 10.8 mmHg (5-10) H 08/11/22 16:41 Hematocrit 45.1 % (42-52) 08/11/22 16:41 Hgb O2 Saturation 94.3 % (95-100) L 08/11/22 16:41 Carboxyhemoglobin 0.4 %THgb (0.4-20.1) 08/11/22 16:41 Methemoglobin 0.8 % (0.4-1.5) 08/11/22 16:41 Total Hemoglobin 14.7 g/dL (14-18) 08/11/22 16:41 Sodium 134.0 mmol/L (131-143) 08/11/22 16:41 Potassium 4.1 mmol/L (3.5-5.0) 08/11/22 16:41 Glucose 94.0 mg/dL (70-115) 08/11/22 16:41 Ionized Calcium 1.1 mmol/L (1.1-1.4) 08/11/22 16:41 O2 Delivery Device Nc 08/11/22 16:41 O2 Liters/Min 2.5 % 08/11/22 16:41 FiO2 30.0 % 08/11/22 16:41 Instructional Technologist ID glc 08/11/22 16:41 Sodium 128 mmol/L (136-145) L 08/11/22 17:18 Potassium 4.1 mmol/L (3.5-5.1) 08/11/22 17:18 Chloride 93 mmol/L (98-107) L 08/11/22 17:18 Carbon Dioxide 28 mmol/L (22-29) 08/11/22 17:18 Anion Gap 11.1 (5-19) 08/11/22 17:18 BUN 15 mg/dL (8-23) 08/11/22 17:18 Creatinine 0.9 mg/dL (0.7-1.2) 08/11/22 17:18 GFR Calculation 85.2 mL/min (90-130) L 08/11/22 17:18 Glucose 99 mg/dL (65-115) 08/11/22 17:18 Calculated Osmolality 267 mOsm/kg (285-295) L 08/11/22 17:18 Calcium 8.8 mg/dL (8.5-10.5) 08/11/22 17:18 Total Bilirubin 0.3 mg/dL (0.15-1.2) 08/11/22 17:18 AST 21 U/L (0-40) 08/11/22 17:18 ALT 17 U/L (0-41) 08/11/22 17:18 Alkaline Phosphatase 95 U/L (40-130) 08/11/22 17:18 Total Protein 7.4 g/dL (6.6-8.7) 08/11/22 17:18 Albumin 3.7 g/dL (3.5-5.2) 08/11/22 17:18 Globulin 3.7 g/dL (1.3-4.6) 08/11/22 17:18 Discharge Plan Discharge Patient Disposition: Home Clinical Impression: Asthma with acute exacerbation Condition: Stable Prescriptions: New prednisone 20 mg tablet 20 mg PO TID Qty: 15 0RF Rx Instructions: 1 p.o. 3 times daily x3 days, 1 p.o. twice daily x2 days, 1 p.o. daily x2 days No Action montelukast [Singulair] 10 mg tablet 10 mg PO DAILY Qty: 30 3RF albuterol sulfate 90 mcg/actuation HFA aerosol inhaler 2 puff inhalation Q6H PRN (Reason: shortness of breath or wheezing) Qty: 8.5 2RF Breztri Aerosphere 160-9-4.8 mcg/actuation HFA aerosol inhaler 2 inh inhalation BID Qty: 10.7 3RF Fasenra Pen 30 mg/mL auto-injector 30 mg SUBCUT Q28D Qty: 1 2RF Rx Instructions: Loading dose albuterol sulfate 2.5 mg /3 mL (0.083 %) solution for nebulization 2.5 mg inhalation Q4H PRN (Reason: shortness of breath or wheezing) Qty: 180 0RF ipratropium-albuterol 0.5 mg-3 mg(2.5 mg base)/3 mL solution for nebulization 3 ml inhalation Q6H PRN (Reason: shortness of breath or wheezing) Qty: 180 1RF azithromycin 250 mg tablet See Rx Instructions .ROUTE .COMPLEX Qty: 6 0RF Rx Instructions: For 250 mg dose pack: take 500 mg today (day 1), then 250 mg for 4 days (days 2-5) primidone 50 mg tablet 50 mg PO BEDTIME citalopram 20 mg tablet 20 mg PO DAILY pantoprazole 40 mg tablet,delayed release (DR/EC) 40 mg PO DAILY Discharge Orders: Discharge ED (Routine); Ordered 08/11/22 Ordered By: Campbell Espinoza Referrals: Shweta Márquez DO [Primary Care Provider] - Discharge Diet: Usual diet Discharge Activity: Limit activity as instructed Patient Instructions: Opioid Safety, Pain Management Activity Restrictions/Additional Instructions: Follow-up with your primary care doctor in the next 2 to 3 days. Continue your oxygen at 3 L/min. Use the albuterol ipratropium bromide combination nebulizers at home rather than plain albuterol. Coding Level of Care Code ED Test Cell Technician for Janet [place]
[2022-08-11 16:32] VITALS: BP 131/80; PULSE 98; RESP 20; TEMP 36.3; O2SAT 92
[2022-08-11 16:51] LABS: ABG PCO2 45.6 mmHg (35-45); ABG PH Result 7.41 (7.35-7.45); Alveolar-Arterial Oxygen Gradi 10.8 mmHg (5-10); Arterial Blood Gas Hematocrit 45.1 % (42-52); Base Excess ABG 3.4 mmol/L (-2.0-2.0); Blood Gas Allen Test Pos; Blood Gas LPM 2.5 %; Blood Gas Operator Identificat glc; Blood Gas Sample Site Radial, left; Blood Gas Sample Type Arterial; Carboxyhemoglobin 0.4 %THgb (0.4-20.1); HCO3 ABG 28.8 mmol/L (22-26); HGB O2 Sat 94.3 % (95-100); Ionized Calcium Level - ABG 1.1 mmol/L (1.1-1.4); Methemoglobin 0.8 % (0.4-1.5); Oxygen Device NC; Oxygen Saturation ABG 95.4; PO2 ABG 75.1 mmHg (80.0-100.0); Potassium Level - ABG 4.1 mmol/L (3.5-5.0); Total Hemoglobin 14.7 g/dL (14-18)
[2022-08-11 17:45] LABS: Basophils % 0.2 %; Eosinophils % 0.5 %; Hematocrit 46.2 % (42.0-52.0); Hemoglobin 14.6 g/dL (11.7-16.6); Lymphocytes # 1.1 10^3/uL (0.8-4.8); Lymphocytes % 27.3 %; Mean Corpuscular HGB Conc 31.6 g/dL (30.0-36.0); Mean Corpuscular Hemoglobin 28.7 pg (28.0-34.0); Mean Corpuscular Volume 90.9 fl (80-94); Mean Platelet Volume 9.7 fL (7.4-10.4); Monocytes # 0.7 10^3/uL (0.2-0.9); Monocytes % 17.1 %; Neutrophils # 2.21 10^3/uL (1.8-7.7); Neutrophils % 53.9 %; Nucleated Red Blood Cells % 0 %; Platelet Count 244 10^3/cmm (130-400); Red Blood Count 5.08 10^6/uL (4.1-5.3); Red Cell Distribution Width 13.3 % (12.1-15.1); White Blood Count 4.1 10^3/uL (4.0-10.0)
[2022-08-11 18:00] LABS: Alanine Aminotransferase 17 U/L (0-41); Albumin Level 3.7 g/dL (3.5-5.2); Alkaline Phosphatase 95 U/L (40-130); Anion Gap 11.1 (5-19); Aspartate Amino Transferase 21 U/L (0-40); Blood Urea Nitrogen 15 mg/dL (8-23); Calcium 8.8 mg/dL (8.5-10.5); Carbon Dioxide 28 mmol/L (22-29); Chloride 93 mmol/L (98-107); Globulin 3.7 g/dL (1.3-4.6); Glomerular Filtration Rate 85.2 mL/min (90-130); Glucose 99 mg/dL (65-115); Osmolality Calculated 267 mOsm/kg (285-295); Potassium 4.1 mmol/L (3.5-5.1); Sodium 128 mmol/L (136-145); Total Bilirubin 0.3 mg/dL (0.15-1.2); Total Protein 7.4 g/dL (6.6-8.7)
[2022-08-11 18:47] VITALS: BP 131/80; PULSE 98; RESP 20; TEMP 36.3; O2SAT 92
== END 2022-08-11 18:55 | disposition home or self-care (01) ==
PROVIDERS: Emergency Provider Family Medicine; PCP Family Medicine
DX: J45.901 Unspecified asthma with (acute) exacerbation (principal); J84.10 Pulmonary fibrosis, unspecified
CPT/HCPCS: 36600; 71045; 80051; 80053; 82330; 82805; 85025; 94640; 96374; 99284; J2930

== ENCOUNTER 2022-08-21 08:29 | Emergency (ER) | payer MEDICARE, MEDICAID, SELFPAY ==
[2022-08-21 08:38] VITALS: BP 122/74; PULSE 82; RESP 19; TEMP 36.9; O2SAT 94; BMI 33.4
--- NOTE | 2022-08-21 08:59 | CTR_ITS ---
PROCEDURE INFORMATION: Exam: CT Lumbar Spine Without Contrast Exam date and time: 08/21/2022 10:04 AM Age: 62 years old Clinical indication: Low back pain and sciatica; Left; Additional info: Lumbar radiculopathy TECHNIQUE: Imaging protocol: Computed tomography of the lumbar spine without contrast. Radiation optimization: All CT scans at this facility use at least one of these dose optimization techniques: automated exposure control; mA and/or kV adjustment per patient size (includes targeted exams where dose is matched to clinical indication); or iterative reconstruction. COMPARISON: No relevant prior studies available. RADIATION DOSE METRICS: Total DLP (mGy-cm): 1140.18 FINDINGS: Bones/joints: No acute fracture. Normal alignment. No significant disc protrusion Severe osteopenia is seen. There is compression fracture involving superior endplate of the L4 vertebral body. There is Schmorl's nodes superior endplate L2-L1 T12 vertebral bodies Intervertebral disc space vacuum phenomena is seen L4-L5 and L5-S1. There is spondylolisthesis L4-L5. L4-L5: There is broad-based bulge of the annulus and bilateral facet hypertrophy and thickening of the ligamentum flavum. These findings correspond to moderate central canal stenosis. Soft tissues: Unremarkable. CT/CT lumbar spine wo con* [id number] IMPRESSION: 1. Severe osteopenia and osteoarthritis 2. Compression fracture superior endplate L4 vertebral body. 3. L4-L5 spondylolisthesis, and moderate central canal stenosis 4. Schmorl's node is are seen at multiple levels the
--- NOTE | 2022-08-21 08:59 | USR_ITS ---
PROCEDURE INFORMATION: Exam: US Duplex Left Lower Extremity Veins, Limited Exam date and time: 08/21/2022 9:42 AM Age: 62 years old Clinical indication: Leg, lower; Left; Patient HX: Pain and swelling for last 2 weeks but last night became much worse and could not stand on leg; Additional info: Left leg swelling with calf tenderness TECHNIQUE: Imaging protocol: Real-time Duplex ultrasound of the Left Lower Extremity with 2-D monroe scale, color Doppler flow and spectral waveform analysis with image documentation. Limited exam focused on the left lower extremity veins. COMPARISON: No relevant prior studies available. FINDINGS: Left deep veins: There is evidence of intraluminal thrombus, decreased compressibility, and no flow present in the popliteal vein and the peroneal vein. A these findings correspond to positive diagnosis for deep vein thrombosis. Left superficial veins: Unremarkable. Saphenofemoral junction is patent without thrombus. Right deep veins: The common femoral, femoral, proximal profunda femoral a veins are patent without thrombus. Normal Doppler waveforms. Normal compressibility and/or augmentation response. Soft tissues: Unremarkable. US/CV venous duplex [facility] [id number] IMPRESSION: 1. Positive DVT popliteal and peroneal veins 2. Otherwise negative examination
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
[2022-08-21] MEDS: apixaban 5 mg Tablet 10 MG PO (11:15)
== END 2022-08-21 11:40 | disposition home or self-care (01) ==
PROVIDERS: Emergency Provider Emergency Medicine; PCP Family Medicine
DX: I82.432 Acute embolism and thrombosis of left popliteal vein (principal); I82.452 Acute embolism and thrombosis of left peroneal vein; Z87.828 Personal history of other (healed) physical injury and trauma; M48.061 Spinal stenosis, lumbar region without neurogenic claudication; M43.16 Spondylolisthesis, lumbar region
CPT/HCPCS: 72131; 93971; 99284

== ENCOUNTER 2022-09-25 12:10 | Outpatient (CLI) | payer MEDICARE, MEDICAID, SELFPAY ==
--- NOTE | 2022-09-25 13:00 | XR_ITS ---
WS: [id number] SCREENING DEXA SCAN Snipi CLINICAL INFORMATION: history of compression fracture COMPARISON: None. FINDINGS: The L1-L4 bone mineral density measures 1.025 g/cm2. This corresponds to a T score score of -1.6 and Z score of -1.9. Left femoral neck bone mineral density measures 0.712 g/cm2. This corresponds to a T score of -2.7 an d Z score of -2.6. Right femoral neck bone mineral density measures 0.559 g/cm2. This corresponds to a T score -3.8of an d Z score of -3.7. Mean femoral neck bone mineral density measures 0.636 g/cm2. This corresponds to a T score of -3.2 an d Z score of -3.2. XR/XR DEXA axial skeleton* [id number] IMPRESSION: Osteopenia lumbar spine. Osteoporosis femoral necks. Patient's FRAX calculated 10 year probability for major osteoporotic fracture i s 14.9 % and osteoporotic hip fracture is 6.8%.
== END 2022-09-25 12:11 | disposition home or self-care (01) ==
LOC: RAD 12:13
PROVIDERS: PCP Family Medicine; Visit Provider Family Medicine
DX: Z87.81 Personal history of (healed) traumatic fracture (principal); M85.88 Other specified disorders of bone density and structure, other site; M81.0 Age-related osteoporosis without current pathological fracture; R06.09 Other forms of dyspnea; J45.50 Severe persistent asthma, uncomplicated; J82.83 Eosinophilic asthma; Z79.52 Long term (current) use of systemic steroids; J44.9 Chronic obstructive pulmonary disease, unspecified; J84.10 Pulmonary fibrosis, unspecified; K21.9 Gastro-esophageal reflux disease without esophagitis; K44.9 Diaphragmatic hernia without obstruction or gangrene; G47.19 Other hypersomnia; H53.8 Other visual disturbances; Z87.891 Personal history of nicotine dependence; Z77.22 Contact with and (suspected) exposure to environmental tobacco smoke (acute) (chronic); R05.8 Other specified cough
CPT/HCPCS: 77080; 99214

== ENCOUNTER 2022-10-16 09:23 | Outpatient (CLI) | payer MEDICARE, MEDICAID, SELFPAY ==
--- NOTE | 2022-10-16 | ECG_ITS ---
[facility] Test Date: 2022-10-16 Pat Name: Elvin Nunn Department: Room: Gender: Male Train Station Agent: : 1960 Requested By: Mark GoodyTagr B Order Number: [id number] Tayler MD: Kedar Coyle M.D. Interpretive Statements NAME OF STUDY: LEXISCAN SESTAMIBI STRESS TEST INDICATION: [Chest Pain, palpititation,reynolds, ] Procedure: At the baseline, the blood pressure was 138/100 mmHg with a heart rate of 93 bpm. The electrocardiogram showed normal sinus rhythm. Baseline artifact does not allow interpretation of the ST-T wave segments The Lexiscan was infused over a period of 20 seconds. A total of 0.4 mg of Lexiscan was infused. The stress phase was continued for a total of 5 minutes. Heart rate was at the end of stress phase was 85 bpm and a blood pressure of 129/91 mmHg. The EKG at the peak infusion revealed normal sinus rhythm. Sestamibi was injected 20 seconds after the Lexiscan infusion. Blood pressure at the end of recovery phase was 112/70 mmHg with a heart rate of 76 bpm. Conclusion: 1. EKG response to Lexiscan cannot be performed because of baseline artifact. 2. No Lexiscan induced chest pain or cardiac arrhythmia. 3. Normal blood pressure and heart rate response. 4. Sestamibi/sestamibi perfusion scan pending; see separate report. Electronically Signed On 10-26-2022 20:05:00 ENTRY LEVEL PROJECT COORDINATOR by Kedar Coyle M.D. [id number]
[2022-10-16 10:24] VITALS: BMI 20.7
--- NOTE | 2022-10-16 10:25 | NMCV_ITS ---
NM travis perf SPECT r/s* [id number] Elvin Nunn Age: 62 Gender: M : 1960 Exam Date: 10/16/2022 10:25 Ordering Phys: Mark Fortune MD Technologist: JADE Chapa Exam Location: [facility] Indications: CHEST PAIN STRESS TEST Please see separate stress test report in [facility] for full findings IMAGE PROTOCOL Rest/Stress 1 Lexiscan Day Radiopharmaceutical Dose (mCi) Administration Site Administered by Rest: Tc-99m 11.0 IV JADE Chapa Sestamibi Stress:Tc-99m 32.8 IV Veronica Juares TERMINAL OPERATIONS MANAGER Sestamibi Rest: 16-Oct-2022 60 Discovery 630 Stress: 16-Oct-2022 30 Discovery 630 0.4mg Lexiscan. Images obtained in supine and prone position. SPECT RESULTS Technical Quality: Excellent Raw Data Analysis: Normal Image Corrections: No attenuation or motion correction applied Summed Stress Score: 5 Summed Rest Score: 0 Summed Difference Score: 5 PERFUSION FINDINGS There is a small to medium sized area of mostly reversible perfusion defect in the apical inferior and inferior mehta. This is consistent with small to medium sized area of ischemia in the RCA territory. FUNCTIONAL RESULTS (calculated via Gated SPECT) Stress Image LV EF (%): 74 Stress EDV (mL):111 TID: 0.86 Stress ESV (mL):29 FUNCTIONAL FINDINGS: There is normal left ventricular systolic function. IMPRESSIONS 1. Small to medium sized area of ischemia noted in the RCA territory 2. LV systolic function is normal Kedar Coyle MD (Electronically Signed) Final Date: 16 October 2022 14:37 S
[2022-10-16] MEDS: regadenoson 0.4 Mg/5 ml Syringe IVP (13:22)
[2022-10-16 13:35] VITALS: BP 112/70; PULSE 82
== END 2022-10-16 09:24 | disposition home or self-care (01) ==
PROVIDERS: PCP Family Medicine; Visit Provider Internal Medicine Pulmonary Disease
DX: R07.9 Chest pain, unspecified (principal); R06.09 Other forms of dyspnea; R00.2 Palpitations; I25.9 Chronic ischemic heart disease, unspecified
CPT/HCPCS: 36415; 78452; 93017; 96374; A9500; J2785

== ENCOUNTER → 2022-10-24 07:45 | Outpatient (BNVA) | payer MEDICARE, MEDICAID, SELFPAY | PROVIDERS: PCP Family Medicine; Visit Provider Nurse Practitioner | DX: R25.1 Tremor, unspecified (principal); J44.9 Chronic obstructive pulmonary disease, unspecified; J45.909 Unspecified asthma, uncomplicated | CPT/HCPCS: 99213 ==

== ENCOUNTER → 2022-11-13 08:53 | Outpatient (BNVA) | payer MEDICARE, MEDICAID, SELFPAY | PROVIDERS: PCP Family Medicine; Visit Provider Family Medicine | DX: R44.3 Hallucinations, unspecified (principal); F32.A Depression, unspecified; F43.23 Adjustment disorder with mixed anxiety and depressed mood; K21.9 Gastro-esophageal reflux disease without esophagitis | CPT/HCPCS: 80053; 84439; 84443; 85025 ==

== ENCOUNTER 2022-11-18 10:27 | Oncology outpatient (recurring) (ONCR) | payer MEDICARE, MEDICAID, SELFPAY ==
[2022-11-18 10:45] VITALS: BP 131/71; PULSE 83; RESP 18; TEMP 36.9; O2SAT 97
[2022-11-18 11:05] VITALS: BP 141/71; PULSE 78; RESP 18; TEMP 36.1; O2SAT 98
[2022-11-18] MEDS: denosumab 60 mg SDV SUBCUT (11:07)
--- NOTE | 2022-11-18 14:26 | PC.NURSE ---
Patient came in for the prolia injection outpatient with the review of the labs and Calcium drawn on 11/13/22 with 9.2 level .mm
== END 2022-11-25 23:59 | disposition home or self-care (01) ==
LOC: ONCMED 10:28
PROVIDERS: PCP Family Medicine; Visit Provider Specialist
DX: M85.80 Other specified disorders of bone density and structure, unspecified site (principal); Z79.899 Other long term (current) drug therapy
CPT/HCPCS: 96401; J0897

== ENCOUNTER → 2022-11-26 09:29 | Outpatient (BNVA) | payer MEDICARE, MEDICAID, SELFPAY | PROVIDERS: PCP Family Medicine; Referring Provider Family Medicine; Visit Provider Anesthesiology Pain Medicine | DX: G89.29 Other chronic pain (principal); M51.36 Other intervertebral disc degeneration, lumbar region; M47.816 Spondylosis without myelopathy or radiculopathy, lumbar region; M54.2 Cervicalgia; J45.50 Severe persistent asthma, uncomplicated; M85.88 Other specified disorders of bone density and structure, other site; Z87.81 Personal history of (healed) traumatic fracture; Z79.52 Long term (current) use of systemic steroids | CPT/HCPCS: 99204 ==

== ENCOUNTER → 2022-12-01 14:40 | Outpatient (BNVA) | payer MEDICARE, MEDICAID, SELFPAY | PROVIDERS: PCP Family Medicine; Visit Provider Internal Medicine Cardiovascular Disease | DX: R06.02 Shortness of breath (principal); R07.9 Chest pain, unspecified | CPT/HCPCS: 36415; 80048; 83880; 99204 ==

== ENCOUNTER 2023-01-02 14:16 | Inpatient (IN) | payer MEDICARE, MEDICAID, SELFPAY ==
[2023-01-02] VITALS (10 sets, daily range): BP systolic 110–145; BP diastolic 78–79; PULSE 73–96; RESP 16–24; TEMP 36.6–36.8; O2SAT 93–96; BMI 38.6
--- NOTE | 2023-01-02 14:21 | XR_ITS ---
WS: [id number] XR chest 1V portable [id number] REASON FOR EXAM: dyspnea/cough FINDINGS: Moderate tortuosity the thoracic aorta. Normal heart size. Calcified granulomatous disease in both hemithoraces. Oblique and horizontal linear lung opacities in both lung bases compatible with fibrosis and/or atele ctasis. No other significant pulmonary parenchymal or pleural abnormality. Mild changes of degenerative spondylosis in the mid and lower thoracic spine. XR/XR chest 1V portable [id number] IMPRESSION: Chronic appearing changes in both lower lung antonio with no definite acute pulm onary parenchymal or pleural abnormality.
--- NOTE | 2023-01-02 14:21 | ECG_ITS ---
[facility] Test Date: 2023-01-02 Pat Name: Elvin Nunn Department: Room: Gender: Male Collections Assistant: : 1960 Requested By: Campbell Brooks Order Number: [id number] Tayler MD: Bernie Park M.D. Measurements Intervals [place] Rate: 86 P: 65 PA: 243 QRS: -77 QRSD: 81 T: 53 QT: 362 QTc: 433 Interpretive Statements SINUS RHYTHM WITH FIRST DEGREE AV BLOCK LEFT AXIS DEVIATION [QRS AXIS < -30] Compared to ECG 06/20/2022 11:10:09 Left-axis deviation now present Electronically Signed On 01-02-2023 21:28:41 CDT by Bernie Park M.D. [email or web address]
--- NOTE | 2023-01-02 14:22 | W.ED.CHESTPA ---
HPI - Chest Pain General: Chief Complaint: Chest Pain Stated Complaint: shortness of breath, chest pain Time Seen by Provider: 01/02/23 14:20 Source: patient Mode of arrival: EMS History of Present Illness: 62-year-old male with a known history of coronary disease and recent stress test that was abnormal presents emergency room with chest pain. He has 2 distinct chest discomforts at the thoracic level to the left overlying the heart he reports a squeezing is a sensation that is worse with activity and better with rest this is been increasing in intensity he still has some chest discomfort at this time lower at the costal angle he has a severe tenderness that he reports is worse with cough and deep breath in position. He has been having increasing cough and he reports a low-grade fever at home he is chronically on oxygen has a history of COPD he has been scheduled for coronary angiogram but has not yet been done. His previous cardiology notes and stress testing reviewed on the chart. MD complaint: chest pain Pertinent past history: coronary artery disease Onset (ago): month(s) Timing of current episode: episodic Prior episodes: Yes Onset: during rest and during exertion Pain location: left chest Severity: moderate Quality: tightness, aching and heaviness Relieving factors: nothing Exacerbating factors: nothing Associated symptoms: Reports dyspnea; Deny abdominal pain, fever(s), nausea, palpitations or vomiting Review of Systems Const: Denies: fever(s), chills, body aches, change in appetite, fatigue or malaise ENMT: Denies: throat pain, ear or mastoid pain, nasal discharge or nasal congestion Card: Reports: chest pain; Denies: palpitations, irregular heart rhythm, edema, dyspnea on exertion or orthopnea Resp: Reports: dyspnea and productive cough; Denies: non-productive cough GI: Denies: abdominal pain, nausea, vomiting, hematemesis, coffee ground emesis, diarrhea, constipation, bloating, hematochezia or melena : Denies: flank pain, dysuria, urinary frequency or urinary urgency Skin/Breast: Denies: rash or pruritus PFSH ED PFSH: Medical History Cognitive impairment Pulmonary emphysema with fibrosis of lung Surgical History History of cataract extraction bilateral History of tonsillectomy Hx of appendectomy Family History Other Dementia Stroke Denies family history of Diabetes CAD (coronary artery disease) Clotting disorder Hyperlipidemia Psychiatric illness Chronic kidney disease (CKD) Suicide Anesthesia complication Bleeding disorder Family history of premature coronary artery disease Lung disease Cancer Hypertension Social History Smoking and tobacco status: former smoker Quit status (tobacco): has quit using tobacco Year quit tobacco: 2017 Former quit date comment: 1pack per month x 2 years Second hand smoke exposure: No Alcohol intake: never Physical Exam Const: COMMON NORMALS: no acute distress GENERAL APPEARANCE: cooperative and comfortable ORIENTATION/CONSCIOUSNESS: Yes awake, Yes oriented to person, Yes oriented to place and Yes oriented to time HENMT: COMMON NORMALS: normocephalic, atraumatic and hearing grossly normal bilaterally HEAD & SCALP: normocephalic and atraumatic Chest: OTHER: Chest pain on the left costal angle is reproducible with palpation Resp: COMMON NORMALS: normal respiratory effort, No retractions, No use of accessory muscles and clear to auscultation bilaterally AUSCULTATION: clear to auscultation bilaterally Cardio: COMMON NORMALS: regular rate, regular rhythm and No murmurs present (Cardio) RATE: regular rate RHYTHM: regular rhythm GI: COMMON NORMALS: Soft to palpation and No hepatosplenomegaly present AUSCULTATION: Yes normoactive bowel sounds PALPATION: Yes Soft to palpation, No Tenderness to palpation present (GI), No Guarding due to palpation present (GI) and Yes No hepatosplenomegaly present Extremity: COMMON NORMALS: normal to inspection, capillary refill normal, no clubbing, cyanosis or edema, no calf tenderness and no pedal edema Neuro: SENSORIUM/ORIENTATION: Yes oriented to person, Yes oriented to place and Yes oriented to time Skin: COMMON NORMALS: no rashes or lesions noted GENERAL SKIN EXAM: no rashes or lesions noted Course Vital Signs: Vital signs: Vital Signs Temperature 97.8 F 01/02/23 14:25 Pulse Rate 77 01/02/23 15:42 Respiratory Rate 18 01/02/23 15:42 Blood Pressure 145/78 01/02/23 14:25 Pulse Oximetry 94 01/02/23 15:42 Oxygen Delivery Me thod 01/02/23 15:42 Oxygen Flow Rate 4 01/02/23 15:42 MDM - Chest Pain Medical Decision Making Patient clearly has 2 distinct chest pains 1 of which is clearly musculoskeletal the other which is very concerning for unstable angina and seems to have been escalating. Difficult to send him home given he has had a previous positive stress test and it has been determined he requires cardiac catheterization. He had relief of symptoms with nitro here he has been started on IV heparin discussed with hospitalist and with cardiology Dr. Park who is the one scheduling a cardiac cath recommends that he be placed on observation and plans to cath the patient tomorrow. Discussed with the patient orders for Medical Records I reviewed the patient's medical records. Lab Data I reviewed the patient's lab results. 01/02/23 14:30 01/02/23 14:30 Radiology Impressions Chest X-Ray 01/02/23 14:21 IMPRESSION: Chronic appearing changes in both lower lung antonio with no definite acute pulmonary parenchymal or pleural abnormality. Laboratory Results WBC 7.4 10^3/uL (4.0-10.0) 01/02/23 14:30 RBC 4.40 10^6/uL (4.1-5.3) 01/02/23 14:30 Hgb 12.7 g/dL (11.7-16.6) 01/02/23 14:30 Hct 40.7 % (42.0-52.0) L 01/02/23 14:30 MCV 92.5 fl (80-94) 01/02/23 14:30 MCH 28.9 pg (28.0-34.0) 01/02/23 14:30 MCHC 31.2 g/dL (30.0-36.0) 01/02/23 14:30 RDW 13.0 % (12.1-15.1) 01/02/23 14:30 Plt Count 177 10^3/cmm (130-400) 01/02/23 14:30 MPV 10.0 fL (7.4-10.4) 01/02/23 14:30 Neut % (Auto) 58.0 % 01/02/23 14:30 Lymph % (Auto) 27.3 % 01/02/23 14:30 [place] % (Auto) 9.4 % 01/02/23 14:30 Eos % (Auto) 4.5 % 01/02/23 14:30 Baso % (Auto) 0.3 % 01/02/23 14:30 Neut # (Auto) 4.27 10^3/uL (1.8-7.7) 01/02/23 14:30 Lymph # (Auto) 2.0 10^3/uL (0.8-4.8) 01/02/23 14:30 [place] # (Auto) 0.7 10^3/uL (0.2-0.9) 01/02/23 14:30 Eos # (Auto) 0.3 10^3/uL (0.0-0.8) 01/02/23 14:30 Baso # (Auto) 0.0 10^3/uL (0.0-0.1) 01/02/23 14:30 Nucleated RBC % (auto) 0 % 01/02/23 14: Nucleated RBCs # 0.0 /100WBC 01/02/23 14:30 Sodium 139 mmol/L (136-145) 01/02/23 14:30 Potassium 3.7 mmol/L (3.5-5.1) 01/02/23 14:30 Chloride 101 mmol/L (98-107) 01/02/23 14:30 Carbon Dioxide 27 mmol/L (22-29) 01/02/23 14:30 Anion Gap 14.7 (5-19) 01/02/23 14:30 BUN 20 mg/dL (8-23) 01/02/23 14:30 Creatinine 0.7 mg/dL (0.7-1.2) 01/02/23 14:30 GFR Calculation 113.9 mL/min (90-130) 01/02/23 14:30 Glucose 116 mg/dL (65-115) H 01/02/23 14:30 Calculated Osmolality 292 mOsm/kg (285-295) 01/02/23 14:30 Calcium 8.7 mg/dL (8.5-10.5) 01/02/23 14:30 Total Bilirubin 0.2 mg/dL (0.15-1.2) 01/02/23 14:30 AST 16 U/L (0-40) 01/02/23 14:30 ALT 14 U/L (0-41) 01/02/23 14:30 Alkaline Phosphatase 65 U/L (40-130) 01/02/23 14:30 Troponin T Baseline 7 ng/L (0-15) 01/02/23 14:30 NT-Pro-B Natriuret Pep 241 pg/mL (0-125) H 01/02/23 14:30 Total Protein 6.9 g/dL (6.6-8.7) 01/02/23 14:30 Albumin 3.6 g/dL (3.5-5.2) 01/02/23 14:30 Globulin 3.3 g/dL (1.3-4.6) 01/02/23 14:30 Discharge Plan Discharge Patient Disposition: Placed in Observation Clinical Impression: Unstable angina pectoris, Abnormal cardiovascular stress test, Pulmonary fibrosis Condition: Stable Prescriptions: No Action (DME) wheelchair See Rx Instructions .Route .MEDSUPPLY Qty: 1 0RF Rx Instructions: As directed (DME) hsopital bed See Rx Instructions .Route .MEDSUPPLY Qty: 1 0RF Rx Instructions: As directed citalopram 20 mg tablet 20 mg PO DAILY Qty: 90 0RF pantoprazole 40 mg tablet,delayed release (DR/EC) 40 mg PO DAILY Qty: 90 0RF primidone 50 mg tablet 100 mg PO BEDTIME nitroglycerin 0.4 mg tablet, sublingual 0.4 mg sublingual Q5M PRN (Reason: chest pain) 30 Days Qty: 30 3RF Rx Instructions: until response; do not exceed 3 doses per episode latanoprost 0.005 % drops 1 drp ophthalmic (eye) DAILY Breztri Aerosphere 160-9-4.8 mcg/actuation HFA aerosol inhaler 2 inh inhalation BID Fasenra Pen 30 mg/mL auto-injector 30 mg SUBCUT Q28D Qty: 1 2RF Rx Instructions: Loading dose ipratropium-albuterol 0.5 mg-3 mg(2.5 mg base)/3 mL solution for nebulization 3 ml inhalation Q6H PRN (Reason: shortness of breath or wheezing) Qty: 180 1RF cholecalciferol (vitamin D3) 125 mcg (5,000 unit) capsule 125 mcg PO DAILY Qty: 90 2RF albuterol sulfate 90 mcg/actuation HFA aerosol inhaler See Rx Instructions .ROUTE .COMPLEX Qty: 9 1RF Dose Instruction: INHALE 2 PUFFS BY MOUTH EVERY 6 HOURS NEEDED FOR SHORTNESS OF BREATH FOR WHEEZING Rx Instructions: INHALE 2 PUFFS BY MOUTH EVERY 6 HOURS NEEDED FOR SHORTNESS OF BREATH FOR WHEEZING olanzapine [Zyprexa] 2.5 mg tablet 2.5 mg PO DAILY Qty: 90 1RF vitamin B complex [B Complex-Vitamin B12] Tablet 1 tab PO DAILY Qty: 30 6RF gabapentin 300 mg capsule See Rx Instructions .ROUTE .COMPLEX Qty: 90 0RF Dose Instruction: TAKE 1 CAPSULE BY MOUTH EVERY 8 HOURS Rx Instructions: TAKE 1 CAPSULE BY MOUTH EVERY 8 HOURS denosumab 60 mg/mL syringe 60 mg SUBCUT Q180D Rx Instructions: 60 mg sq q 6 month Referrals: Shweta Márquez DO [Primary Care Provider] - Coding Level of Care Code ED Pricing Strategist for [facility] [place]
[2023-01-02] MEDS: nitroglycerin 1 gm/inch oint Pkt 1 INCH TOPICAL (14:37)
[2023-01-02 14:41] LABS: Basophils % 0.3 %; Eosinophils # 0.3 10^3/uL (0.0-0.8); Eosinophils % 4.5 %; Hematocrit 40.7 % (42.0-52.0); Hemoglobin 12.7 g/dL (11.7-16.6); Lymphocytes % 27.3 %; Mean Corpuscular HGB Conc 31.2 g/dL (30.0-36.0); Mean Corpuscular Hemoglobin 28.9 pg (28.0-34.0); Mean Corpuscular Volume 92.5 fl (80-94); Monocytes # 0.7 10^3/uL (0.2-0.9); Monocytes % 9.4 %; Neutrophils # 4.27 10^3/uL (1.8-7.7); Nucleated Red Blood Cells % 0 %; Platelet Count 177 10^3/cmm (130-400); White Blood Count 7.4 10^3/uL (4.0-10.0)
[2023-01-02 15:00] LABS: Troponin(5th) Baseline 7 ng/L (0-15)
[2023-01-02 15:10] LABS: Alanine Aminotransferase 14 U/L (0-41); Albumin Level 3.6 g/dL (3.5-5.2); Alkaline Phosphatase 65 U/L (40-130); Anion Gap 14.7 (5-19); Aspartate Amino Transferase 16 U/L (0-40); Blood Urea Nitrogen 20 mg/dL (8-23); Calcium 8.7 mg/dL (8.5-10.5); Carbon Dioxide 27 mmol/L (22-29); Chloride 101 mmol/L (98-107); Globulin 3.3 g/dL (1.3-4.6); Glomerular Filtration Rate 113.9 mL/min (90-130); Glucose 116 mg/dL (65-115); NT Pro B Type Natriuretic Pept 241 pg/mL (0-125); Osmolality Calculated 292 mOsm/kg (285-295); Potassium 3.7 mmol/L (3.5-5.1); Sodium 139 mmol/L (136-145); Total Bilirubin 0.2 mg/dL (0.15-1.2); Total Protein 6.9 g/dL (6.6-8.7)
--- NOTE | 2023-01-02 15:35 | ECG_ITS ---
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 Measurements Intervals [place] Rate: 74 P: 66 UT: 245 QRS: -64 QRSD: 87 T: 69 QT: 372 QTc: 414 Interpretive Statements SINUS RHYTHM WITH FIRST DEGREE AV BLOCK LEFT AXIS DEVIATION [QRS AXIS < -30] Compared to ECG 01/02/2023 14:28:02 No significant changes Electronically Signed On 01-02-2023 21:40:54 CDT by Bernie Park M.D. [email or web address]
[2023-01-02] MEDS: heparin drip 25,000 UNIT/500 ML PREMIX 30.74 UNIT IV (15:41)
[2023-01-02] MEDS: ipratropium-albuterol 3 mL Neb INHALATION ×2 (15:42→20:25)
[2023-01-02] MEDS: heparin 5,000 unit/mL INJ 1 mL IV (15:42)
[2023-01-02 16:41] LABS: Troponin 5 2HR Delta -1 ABS# (0-10)
--- NOTE | 2023-01-02 17:03 | PM.CONSULT ---
Providers/Reason For Consult Consulting Physician/Specialty*: KEILA Park MD/cardiology Reason for Consult*: Patient with increasing episodes of chest pain and abnormal Myocardial perfusion imaging Requesting Physician: Dr Watkins Attending Physician: Dr Watkins Primary Care Provider: Shweta Márquez DO History of Present Illness History of Present Illness Elvin Nunn is a 62 year old male is admitted to hospital through the emergency room, where he presented with complaints of increasing chest pains. He had a Myocardial perfusion imaging in September of this year which was found to be abnormal. Cardiology consult is requested for further cardiac evaluation recommendations. This patient is known to have severe eosinophilic asthma, asthma/COPD overlap syndrome, chronic back pain, tremors and some cognitive impairment.he is currently staying with his sister who is the caregiver . Apparently this patient has been having chest pains for the last 2 years or so. For the last 2 weeks or so, the pain has been getting more frequent. He describes having to kinds of chest pains. The one kind of pain is precipitated with activities. With the minimal to moderate activities, he gets pressure-like pain, radiating across the chest, to the left arm, to the left shoulder and to the back. The intensity of the pain is 7/10. He may have some associated shortness of breath. He had several episodes of this type of pain yesterday and today. The other kind of pain is in the left mammary region which is more or less constant with some waxing and waning. The pain gets worse with cough, deep breath or with chest movements. It is sharp in nature. No radiation of pain. He started having this type of pain a week ago. He may have a low-grade fever at home. He has been having a cough which is chronic. No hemoptysis. He has no history for any coronary disease, myocardial infarction or congestive heart failure.? Never had a stress test. He was recently diagnosed with a DVT of the left leg for which he took the oral anticoagulant for a month or so.? His son had a DVT at age 35.? The patient is being followed by the neurology for tremor.? He also is being followed up with the pain clinic for his chronic back pain.? For the respiratory status, he is being followed up by Dr. Fortune. He also has a history of cough syncope. Mostly it happens in the bathroom. He is somewhat vague about this. He has been having this for the last 6 months or so. He never sustained any injury. According to him, usually his head make it to the bathroom wall and at times can the floor. Review of Systems Narrative: CONSTITUTIONAL: No fever or chills. EYES: No blurring of vision or other visual disturbances lately. ENT: No hoarseness of voice, auditory disturbances or sore throat. CARDIOVASCULAR: As mentioned above. RESPIRATORY: Chronic cough as mentioned above GASTROINTESTINAL: No hematemesis or melena. GENITOURINARY: No dysuria or hematuria. INTEGUMENTARY: No skin rashes or history of skin cancer. NEURO: History of fine tremor. Also history of cognitive dysfunction PSYCHIATRIC: No history of psychosis or major depression. HEMATOLOGIC: No bleeding disorders or significant anemia. ENDOCRINE: No history of polyuria or polydipsia. MUSCULOSKELETAL: No recent joint pain or swelling. ALLERGY/IMMUNOLOGY: History of severe eosinophilic asthma Medications/Allergies Home Medications Medication Instructions Recorded Confirmed Last Taken Type benralizumab 30 mg/mL subcutaneous 30 mg SUBCUT Q28D 3 doses #1 mL 06/06/22 01/02/23 Unknown Rx auto-injector (Fasenra Pen) ipratropium 0.5 mg-albuterol 3 mg 3 ml inhalation Q6H PRN shortness 08/12/22 01/02/23 Unknown Rx (2.5 mg base)/3 mL nebulization of breath or wheezing #180 mL soln hsopital bed #1 ea 08/28/22 01/02/23 Unknown Rx wheelchair #1 ea 08/28/22 01/02/23 Unknown Rx cholecalciferol (vitamin D3) 125 125 mcg PO DAILY #90 caps 10/14/22 01/02/23 01/01/23 Rx mcg (5,000 unit) capsule albuterol sulfate 90 mcg/actuation See Rx Instructions .Route 11/12/22 01/02/23 Unknown Rx aerosol inhaler .COMPLEX #9 grams citalopram 20 mg tablet 20 mg PO DAILY #90 tabs 11/13/22 01/02/23 01/01/23 Rx pantoprazole 40 mg tablet,delayed 40 mg PO DAILY #90 tabs 11/13/22 01/02/23 01/01/23 Rx release olanzapine 2.5 mg tablet (Zyprexa) 2.5 mg PO DAILY #90 tabs 11/18/22 01/02/23 01/01/23 Rx budesonide 160 mcg-glycopyr 9 2 inh inhalation BID 11/26/22 01/02/23 01/01/23 History mcg-formot 4.8 mcg/actuation HFA inhaler (Breztri Aerosphere) latanoprost 0.005 % eye drops 1 drp ophthalmic (eye) DAILY 11/26/22 01/02/23 01/01/23 History nitroglycerin 0.4 mg sublingual 0.4 mg sublingual Q5M PRN chest 12/01/22 01/02/23 Unknown Rx tablet pain 30 days #30 tabs primidone 50 mg tablet 100 mg PO BEDTIME 12/01/22 01/02/23 01/01/23 History vitamin B complex (B 1 tab PO DAILY #30 tabs 12/20/22 01/02/23 01/01/23 Rx Complex-Vitamin B12 tablet) gabapentin 300 mg capsule See Rx Instructions .Route 12/29/22 01/02/23 01/02/23 Rx .COMPLEX #90 caps denosumab 60 mg/mL subcutaneous 60 mg SUBCUT Q180D 01/02/23 01/02/23 Unknown History syringe Allergies Allergy/AdvReac Type Severity Reaction Status Date / Time No Known Allergies Allergy Verified 12/01/22 15:24 Current Medications Generic Name Dose Route Start Last Admin Trade Name Freq PRN Reason Stop Dose Admin Heparin Sodium (Porcine) 0 unit 01/02/23 14:26 01/02/23 15:42 Heparin 5,000 Unit/Ml Inj 1 Ml IV 5,500 unit PRN PRN Administration Heparin weight-base protocol Protocol Heparin Sodium/Sodium Chloride 25,000 unit in 500 mls @ 0 mls/hr 01/02/23 14:30 01/02/23 15:41 Heparin Drip IV 14 unit/kg/hr .Q0M TAMMY 30.74 mls/hr Administration Protocol Per Protocol PFSH Acute PFSH: Medical History Cognitive impairment Pulmonary emphysema with fibrosis of lung Surgical History History of cataract extraction bilateral History of tonsillectomy Hx of appendectomy Family History Other Dementia Stroke Denies family history of Diabetes CAD (coronary artery disease) Clotting disorder Hyperlipidemia Psychiatric illness Chronic kidney disease (CKD) Suicide Anesthesia complication Bleeding disorder Family history of premature coronary artery disease Lung disease Cancer Hypertension Social History Smoking and tobacco status: former smoker Quit status (tobacco): has quit using tobacco Year quit tobacco: 2017 Former quit date comment: 1pack per month x 2 years Second hand smoke exposure: No Alcohol intake: never Vitals/I&O/Wt Last Vital Signs Temp 97.8 F 01/02/23 14:25 Pulse 77 01/02/23 16:29 Resp 16 01/02/23 16:00 BP 123/78 01/02/23 16:00 Pulse Ox 94 01/02/23 16:29 O2 Del Method 01/02/23 16:40 O2 Flow Rate 5 01/02/23 16:29 Weight last 48 hrs Weight 242 lb Physical Exam Narrative: GENERAL: The patient is alert and oriented times three. Not in any acute distress. HEENT: No significant pallor, icterus or lymphadenopathy.Oral cavity: There are no mucous membrane lesions. NECK: Trachea appears to be central. No masses noted. No JVD or thyromegaly appreciated. RESPIRATORY: Chest is symmetrical. No intercostals muscle retraction or any accessory muscle activation. There is no chest wall tenderness. Breath sounds are heard bilaterally. Scattered wheezing and coarse crackles. BREASTS: Deferred. HEART: The heart sounds are normal. No S3 or S4. No significant murmurs. No pericardial rub ABDOMEN: No vessel pulsations or distention. No tenderness. No organomegaly appreciated. Bowel sounds are normally heard. : Deferred. RECTAL: Deferred. LYMPHATIC: No lymphadenopathy noted in the neck. EXTREMITIES: Edema with no cyanosis. Peripheral pulses are palpable and fairly good volume and amplitude. MUSCULOSKELETAL: No acute joint deformities or swelling SKIN: There are no significant rashes or ecchymosis NEUROPSYCHIATRIC: The patient is alert and oriented x3. Appears to be in a good mood. Generalized tremors noted Data 01/02/23 14:30 01/02/23 14:30 Micro: Laboratory Last Values WBC 7.4 10^3/uL (4.0-10.0) 01/02/23 14:30 RBC 4.40 10^6/uL (4.1-5.3) 01/02/23 14:30 Hgb 12.7 g/dL (11.7-16.6) 01/02/23 14:30 Hct 40.7 % (42.0-52.0) L 01/02/23 14:30 MCV 92.5 fl (80-94) 01/02/23 14:30 MCH 28.9 pg (28.0-34.0) 01/02/23 14: MCHC 31.2 g/dL (30.0-36.0) 01/02/23 14: RDW 13.0 % (12.1-15.1) 01/02/23 14: Plt Count 177 10^3/cmm (130-400) 01/02/23 14: MPV 10.0 fL (7.4-10.4) 01/02/23 14:30 Neut % (Auto) 58.0 % 01/02/23 14:30 Lymph % (Auto) 27.3 % 01/02/23 14:30 [place] % (Auto) 9.4 % 01/02/23 14:30 Eos % (Auto) 4.5 % 01/02/23 14:30 Baso % (Auto) 0.3 % 01/02/23 14:30 Neut # (Auto) 4.27 10^3/uL (1.8-7.7) 01/02/23 14:30 Lymph # (Auto) 2.0 10^3/uL (0.8-4.8) 01/02/23 14:30 [place] # (Auto) 0.7 10^3/uL (0.2-0.9) 01/02/23 14:30 Eos # (Auto) 0.3 10^3/uL (0.0-0.8) 01/02/23 14:30 Baso # (Auto) 0.0 10^3/uL (0.0-0.1) 01/02/23 14:30 Nucleated RBC % (auto) 0 % 01/02/23 14: Nucleated RBCs # 0.0 /100WBC 01/02/23 14:30 Sodium 139 mmol/L (136-145) 01/02/23 14:30 Potassium 3.7 mmol/L (3.5-5.1) 01/02/23 14:30 Chloride 101 mmol/L (98-107) 01/02/23 14:30 Carbon Dioxide 27 mmol/L (22-29) 01/02/23 14:30 Anion Gap 14.7 (5-19) 01/02/23 14:30 BUN 20 mg/dL (8-23) 01/02/23 14:30 Creatinine 0.7 mg/dL (0.7-1.2) 01/02/23 14:30 GFR Calculation 113.9 mL/min (90-130) 01/02/23 14:30 Glucose 116 mg/dL (65-115) H 01/02/23 14:30 Calculated Osmolality 292 mOsm/kg (285-295) 01/02/23 14:30 Calcium 8.7 mg/dL (8.5-10.5) 01/02/23 14:30 Total Bilirubin 0.2 mg/dL (0.15-1.2) 01/02/23 14:30 AST 16 U/L (0-40) 01/02/23 14:30 ALT 14 U/L (0-41) 01/02/23 14:30 Alkaline Phosphatase 65 U/L (40-130) 01/02/23 14:30 Troponin T Baseline 7 ng/L (0-15) 01/02/23 14:30 Troponin T 120 Minute 6.00 ng/L (0-15) 01/02/23 16:09 Delta Troponin T -1 ABS# (0-10) L 01/02/23 16:09 NT-Pro-B Natriuret Pep 241 pg/mL (0-125) H 01/02/23 14:30 Total Protein 6.9 g/dL (6.6-8.7) 01/02/23 14:30 Albumin 3.6 g/dL (3.5-5.2) 01/02/23 14:30 Globulin 3.3 g/dL (1.3-4.6) 01/02/23 14:30 Myocardial perfusion imaging: My impression: MPI done in September 2022 1. Small to medium sized area of ischemia noted in the RCA territory ?2. LV systolic function is normal EKG 1: My Interpretation: The EKG shows normal sinus rhythm with a first-degree AV block. No acute ST-T changes. Normal QRS duration. A&P Assessment and plan (1) Unstable angina pectoris: Patient with increasing episodes of chest pains suggestive unstable anginal pattern. The EKG is unremarkable. No evidence of myocardial injury so far. This patient may be treated with a subcu Lovenox, beta-kathryn, aspirin and statin drug. I may do a lipid profile on the blood in the lab. (2) Abnormal cardiovascular stress test: Patient has an abnormal perfusion scan, suggestive of ischemia in the distribution of the right coronary artery. For further evaluation, a cardiac catheterization would be appropriate. (3) Recurrent syncope: Patient is somewhat vague about this symptom. There is no witnessed syncopal episode so far. Patient may have a vasovagal syncope. This may further need to be evaluated with an event monitor. (4) SOB (shortness of breath): The etiology agrees multifactorial. COPD/emphysema, pulmonary fibrosis, LV dysfunction, contributing factors. Echocardiogram would be helpful to evaluate the LV function and rule out any other pathology. (5) Asthma-COPD overlap syndrome: Continue the current management as it is. Plan After reviewing the above and also based on the patient's clinical progress, further recommendations will be made. He may benefit from a cardiac catheterization to further evaluate his coronary status and decide on further management. This was discussed with the patient and his sister in detail which they understood well. The risk of bleeding, hematoma, vascular injury, myocardial infarction, myocardial perforation, malignant cardiac arrhythmias ,CVA, renal failure and other concomitant complications were explained in detail. Patient is wanting to go ahead with the procedure. We may schedule this for tomorrow. Patient the patient's clinical progress and the results of the above, further recommendations will be made. Thank you for the opportunity to evaluate this patient and make these recommendations Consult Attestations Medical Necessity Statement: Patient requires continued hospital stay for close monitoring and further management Coding Level of Care Code 50006 Diagnoses Unstable angina pectoris I20.0 Abnormal cardiovascular stress test R94.39 Recurrent syncope R55 SOB (shortness of breath) R06.02 Asthma-COPD overlap syndrome J44.9
--- NOTE | 2023-01-02 19:52 | P.HP_ITS ---
Providers/Chief Complaint Admitting Physician: Bernie Park MD Primary Care Provider: Shweta Márquez DO Chief Complaint: shortness of breath, chest pain History of Present Illness Elvin Nunn is a 62 year old male who presented to the emergency room with chest pain. He has had chest pain off and on for some time. He had a stress test in September of this year that showed a small to medium sized area of ischemia in the RCA territory with normal LV function. Recommendation has been for further work-up including cardiac catheterization. He last saw Dr. Park in November. He was due to have an echocardiogram with subsequent plan for cath pending the results of that but it was not done. Today he describes both a musculoskeletal pain component that is reproducible but also a left-sided chest pain more concerning for angina that is gradually becoming more and more severe. Initial troponin was 6. EKG showed nonspecific changes. ER physician reviewed with Dr. Park and patient is being admitted to hospitalist service with plan for cardiac catheterization. He has had improvement in discomfort after nitroglycerin. He is currently chest pain-free. No reports of any bleeding. He does have some dyspnea on exertion and an intermittent cough. Describes some subjective fevers. No changes in bowel or bladder function. No calf pain. He did have a DVT in his left lower extremity involving the popliteal and peroneal veins identified in July 2022 for which he was on anticoagulants for period of time. He does reports pain still and swelling in that leg. He was supposed to have had a follow-up ultrasound but never had it done. He is not currently on any form of anticoagulation. Review of Systems General: Reports: Other (As per HPI) Medications/Allergies Home Medications Medication Instructions Recorded Confirmed Last Taken Type benralizumab 30 mg/mL subcutaneous 30 mg SUBCUT Q28D 3 doses #1 mL 06/06/22 01/02/23 Unknown Rx auto-injector (Fasenra Pen) ipratropium 0.5 mg-albuterol 3 mg 3 ml inhalation Q6H PRN shortness 08/12/22 01/02/23 Unknown Rx (2.5 mg base)/3 mL nebulization of breath or wheezing #180 mL soln hsopital bed #1 ea 08/28/22 01/02/23 Unknown Rx wheelchair #1 ea 08/28/22 01/02/23 Unknown Rx cholecalciferol (vitamin D3) 125 125 mcg PO DAILY #90 caps 10/14/22 01/02/23 01/01/23 Rx mcg (5,000 unit) capsule albuterol sulfate 90 mcg/actuation See Rx Instructions .Route 11/12/22 01/02/23 Unknown Rx aerosol inhaler .COMPLEX #9 grams citalopram 20 mg tablet 20 mg PO DAILY #90 tabs 11/13/22 01/02/23 01/01/23 Rx pantoprazole 40 mg tablet,delayed 40 mg PO DAILY #90 tabs 11/13/22 01/02/23 01/01/23 Rx release olanzapine 2.5 mg tablet (Zyprexa) 2.5 mg PO DAILY #90 tabs 11/18/22 01/02/23 01/01/23 Rx budesonide 160 mcg-glycopyr 9 2 inh inhalation BID 11/26/22 01/02/23 01/01/23 History mcg-formot 4.8 mcg/actuation HFA inhaler ([employer]) latanoprost 0.005 % eye drops 1 drp ophthalmic (eye) DAILY 11/26/22 01/02/23 01/01/23 History nitroglycerin 0.4 mg sublingual 0.4 mg sublingual Q5M PRN chest 12/01/22 01/02/23 Unknown Rx tablet pain 30 days #30 tabs primidone 50 mg tablet 100 mg PO BEDTIME 12/01/22 01/02/23 01/01/23 History vitamin B complex (B 1 tab PO DAILY #30 tabs 12/20/22 01/02/23 01/01/23 Rx Complex-Vitamin B12 tablet) gabapentin 300 mg capsule See Rx Instructions .Route 12/29/22 01/02/23 01/02/23 Rx .COMPLEX #90 caps denosumab 60 mg/mL subcutaneous 60 mg SUBCUT Q180D 01/02/23 01/02/23 Unknown History syringe Allergies Allergy/AdvReac Type Severity Reaction Status Date / Time No Known Allergies Allergy Verified 12/01/22 15:24 PFSH Acute PFSH: Medical History (Updated 01/02/23 @ 23:19 by Brianna Watkins MD) Asthma-COPD overlap syndrome Chronic neck pain Cognitive impairment Degenerative lumbar disc Eosinophilic asthma GERD (gastroesophageal reflux disease) History of compression fracture of spine Left leg DVT 07/2022 Pulmonary emphysema with fibrosis of lung Tremor Surgical History History of cataract extraction bilateral History of tonsillectomy Hx of appendectomy Family History Other Dementia Stroke Denies family history of Diabetes CAD (coronary artery disease) Clotting disorder Hyperlipidemia Psychiatric illness Chronic kidney disease (CKD) Suicide Anesthesia complication Bleeding disorder Family history of premature coronary artery disease Lung disease Cancer Hypertension Social History Smoking and tobacco status: former smoker Quit status (tobacco): has quit using tobacco Year quit tobacco: 2017 Former quit date comment: 1pack per month x 2 years Second hand smoke exposure: No Alcohol intake: never Vitals/I&O/Wt Last Vital Signs Temp 97.8 F 01/02/23 14:25 Pulse 77 01/02/23 16:29 Resp 16 01/02/23 16:00 BP 123/78 01/02/23 16:00 Pulse Ox 94 01/02/23 16:29 O2 Del Method 01/02/23 16:40 O2 Flow Rate 5 01/02/23 16:29 01/02/23 01/02/23 01/02/23 06:59 14:59 22:59 Output Total 700 / 700 Balance -700 / -700 Weight last 48 hrs Weight 111.839 kg Weight 109.769 kg Physical Exam Narrative: Awake and alert. Answers questions appropriately though simply. Lungs are clear to auscultation bilaterally. Cardiovascular exam reveals a regular rate and rhythm. Chest wall is tender to palpation in the left lateral side. This pain is different than the chest pain he experiences with exertion. Abdomen is soft, rotund with positive bowel sounds. Face is symmetric, speech is clear, he keeps his eyes closed but extraocular movements are grossly intact. Moves all extremities. Left lower extremity is tender in the calf. Data 01/02/23 14:30 01/02/23 14:30 Other Labs: Radiology Impressions Chest X-Ray 01/02/23 14:21 IMPRESSION: Chronic appearing changes in both lower lung antonio with no definite acute pulmonary parenchymal or pleural abnormality. Laboratory Results WBC 7.4 10^3/uL (4.0-10.0) 01/02/23 14: RBC 4.40 10^6/uL (4.1-5.3) 01/02/23 14:30 Hgb 12.7 g/dL (11.7-16.6) 01/02/23 14:30 Hct 40.7 % (42.0-52.0) L 01/02/23 14:30 MCV 92.5 fl (80-94) 01/02/23 14:30 MCH 28.9 pg (28.0-34.0) 01/02/23 14:30 MCHC 31.2 g/dL (30.0-36.0) 01/02/23 14: RDW 13.0 % (12.1-15.1) 01/02/23 14: Plt Count 177 10^3/cmm (130-400) 01/02/23 14: MPV 10.0 fL (7.4-10.4) 01/02/23 14:30 Neut % (Auto) 58.0 % 01/02/23 14:30 Lymph % (Auto) 27.3 % 01/02/23 14:30 [place] % (Auto) 9.4 % 01/02/23 14:30 Eos % (Auto) 4.5 % 01/02/23 14:30 Baso % (Auto) 0.3 % 01/02/23 14:30 Neut # (Auto) 4.27 10^3/uL (1.8-7.7) 01/02/23 14:30 Lymph # (Auto) 2.0 10^3/uL (0.8-4.8) 01/02/23 14:30 [place] # (Auto) 0.7 10^3/uL (0.2-0.9) 01/02/23 14:30 Eos # (Auto) 0.3 10^3/uL (0.0-0.8) 01/02/23 14:30 Baso # (Auto) 0.0 10^3/uL (0.0-0.1) 01/02/23 14:30 Nucleated RBC % (auto) 0 % 01/02/23 14: Nucleated RBCs # 0.0 /100WBC 01/02/23 14:30 Sodium 139 mmol/L (136-145) 01/02/23 14:30 Potassium 3.7 mmol/L (3.5-5.1) 01/02/23 14:30 Chloride 101 mmol/L (98-107) 01/02/23 14:30 Carbon Dioxide 27 mmol/L (22-29) 01/02/23 14:30 Anion Gap 14.7 (5-19) 01/02/23 14:30 BUN 20 mg/dL (8-23) 01/02/23 14:30 Creatinine 0.7 mg/dL (0.7-1.2) 01/02/23 14:30 GFR Calculation 113.9 mL/min (90-130) 01/02/23 14:30 Glucose 116 mg/dL (65-115) H 01/02/23 14:30 Calculated Osmolality 292 mOsm/kg (285-295) 01/02/23 14:30 Calcium 8.7 mg/dL (8.5-10.5) 01/02/23 14:30 Total Bilirubin 0.2 mg/dL (0.15-1.2) 01/02/23 14:30 AST 16 U/L (0-40) 01/02/23 14:30 ALT 14 U/L (0-41) 01/02/23 14:30 Alkaline Phosphatase 65 U/L (40-130) 01/02/23 14:30 Troponin T Baseline 7 ng/L (0-15) 01/02/23 14:30 Troponin T 120 Minute 6.00 ng/L (0-15) 01/02/23 16:09 Delta Troponin T -1 ABS# (0-10) L 01/02/23 16:09 NT-Pro-B Natriuret Pep 241 pg/mL (0-125) H 01/02/23 14:30 Total Protein 6.9 g/dL (6.6-8.7) 01/02/23 14:30 Albumin 3.6 g/dL (3.5-5.2) 01/02/23 14:30 Globulin 3.3 g/dL (1.3-4.6) 01/02/23 14:30 A&P Assessment and plan (1) Unstable angina pectoris: (2) Abnormal cardiovascular stress test: Abnormality identified in the RCA territory in September of this year (3) Recurrent syncope: (4) Pulmonary fibrosis: With COPD (5) 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 (6) Tremor: (7) Left leg DVT: In July 2022 status post anticoagulation treatment though did not have follow-up imaging Qualifiers: Affected thrombotic vein of extremity: popliteal Chronicity: acute Qualified Code(s): I82.432 - Acute embolism and thrombosis of left popliteal vein (8) Cognitive impairment: Plan Elevated blood sugar without history of diabetes Observation admission Cardiology consultation Check lipid panel and hemoglobin A1c for risk stratification Continue heparin drip started in the ER Continue aspirin, add statin Echocardiogram has been ordered Venous Doppler of the left lower extremity to reevaluate previously identified DVT Tentative plan is for cardiac catheterization tomorrow Continue breathing treatments while in the hospital with DuoNebs and budesonide I have continued his usual Zyprexa dosing though it carries risk in the setting of coronary disease Continue primidone and gabapentin which are usual home medications Continue home citalopram PPI for GI prophylaxis Supportive care otherwise Anticipate discharge home with outpatient follow-up once medically stable including follow-up cardiology Attestations Medical Necessity Statement*: Currently anticipate a stay less than 2 midnights in gentleman presenting with progressively worsening chest pain oc curring at increased frequency who had a positive stress test earlier this year. Plans are as noted. and Moderate Time for a total of 55 minutes, includes reviewing past or interval history, examining/interviewing patient, placing orders and documenting encounter Diagnoses Unstable angina pectoris I20.0 Abnormal cardiovascular stress test R94.39 Recurrent syncope R55 Pulmonary fibrosis J84.10 Eosinophilic asthma J82.83 Tremor R25.1 Left leg DVT I82.432 Affected thrombotic vein of extremity: popliteal Chronicity: acute Cognitive impairment R41.89
--- NOTE | 2023-01-02 20:21 | ECG_ITS ---
[facility] Test Date: 2023-01-02 Pat Name: Elvin Nunn Department: Room: 107 Gender: Male Household Coordinator: : 1960 Requested By: Campbell Brooks Order Number: [id number] Tayler MD: Bernie Park M.D. Measurements Intervals [place] Rate: 80 P: 56 WA: 255 QRS: -36 QRSD: 97 T: 57 QT: 357 QTc: 413 Interpretive Statements SINUS RHYTHM WITH FIRST DEGREE AV BLOCK LEFT AXIS DEVIATION [QRS AXIS < -30] Compared to ECG 01/02/2023 15:35:21 No significant changes Electronically Signed On 01-02-2023 21:41:57 CDT by Bernie Park M.D. [id number]
[2023-01-02] MEDS: primidone 50 mg Tablet 100 MG PO (20:32)
[2023-01-02] MEDS: gabapentin 300 mg Capsule PO (20:32)
[2023-01-02 21:01] LABS: Partial Thromboplastin Time 81.9 SECONDS (23.9-36.7)
[2023-01-02 21:12] LABS: Troponin 5 6HR Delta -1 ng/L (0-12)
--- NOTE | 2023-01-02 22:57 | USR_ITS ---
PROCEDURE INFORMATION: Exam: US Duplex Left Lower Extremity Veins, Limited Exam date and time: 01/02/2023 11:57 PM Age: 62 years old Clinical indication: Condition or disease; Other: Dvt; Edema, localized; Lower extremity, left; Additional info: HX popliteal and peroneal dvt 09/18 TECHNIQUE: Imaging protocol: Real-time duplex ultrasound of the left extremity with 2-D monroe scale, color Doppler flow and spectral waveform analysis including responses to compression and other maneuvers (when performed) with image documentation. Limited exam focused on the left lower extremity veins. COMPARISON: US CV venous duplex [facility] [id number] 08/21/2022 9:42 AM FINDINGS: Left deep veins: Unremarkable. The common femoral, femoral, proximal profunda femoral and popliteal veins are patent without thrombus. Normal Doppler waveforms. Normal compressibility and/or augmentation response. Left superficial veins: Unremarkable. Saphenofemoral junction is patent without thrombus. Soft tissues: Unremarkable. US/CV venous duplex [facility] [id number] IMPRESSION: No evidence of deep vein thrombosis.
[2023-01-03] VITALS (98 sets, daily range): BP systolic 81–142; BP diastolic 54–80; PULSE 48–82; RESP 11–28; TEMP 36.4–36.6; O2SAT 89–100
[2023-01-03] MEDS: gabapentin 300 mg Capsule PO ×3 (03:40→21:09)
[2023-01-03 04:00] LABS: Hematocrit 37.6 % (42.0-52.0); Hemoglobin 11.8 g/dL (11.7-16.6); Lymphocytes # 0.7 10^3/uL (0.8-4.8); Lymphocytes % 8.4 %; Mean Corpuscular HGB Conc 31.4 g/dL (30.0-36.0); Mean Corpuscular Hemoglobin 28.9 pg (28.0-34.0); Mean Corpuscular Volume 91.9 fl (80-94); Mean Platelet Volume 10.3 fL (7.4-10.4); Monocytes # 0.7 10^3/uL (0.2-0.9); Monocytes % 7.5 %; Neutrophils # 7.28 10^3/uL (1.8-7.7); Neutrophils % 83.5 %; Nucleated Red Blood Cells % 0 %; Platelet Count 199 10^3/cmm (130-400); Red Blood Count 4.09 10^6/uL (4.1-5.3); Red Cell Distribution Width 13.1 % (12.1-15.1); White Blood Count 8.7 10^3/uL (4.0-10.0)
[2023-01-03 04:21] LABS: Anion Gap 12.3 (5-19); Blood Urea Nitrogen 19 mg/dL (8-23); Calcium 8.4 mg/dL (8.5-10.5); Carbon Dioxide 28 mmol/L (22-29); Chloride 99 mmol/L (98-107); Chol HDL Ratio 3.55 mg/dL (1.0-5.00); Cholesterol 199 mg/dL (0-200); Glomerular Filtration Rate 113.9 mL/min (90-130); Glucose 129 mg/dL (65-115); HDL Cholesterol 56 mg/dL (60-100); LDL Cholesterol Calculated 133 mg/dL (50-129); LDL HDL Ratio 2.38 RATIO (0.00-3.22); Osmolality Calculated 284 mOsm/kg (285-295); Phosphorus 2.6 mg/dL (2.5-4.5); Potassium 4.3 mmol/L (3.5-5.1); Sodium 135 mmol/L (136-145); Triglycerides 50 mg/dL (0-150)
[2023-01-03 04:31] LABS: Estmated Average Glucose 100; Hemoglobin A1C 5.1 % (4.0-6.0)
[2023-01-03 04:36] LABS: INR 0.98 (0.8-1.2)
[2023-01-03 04:45] LABS: Partial Thromboplastin Time 72.6 SECONDS (23.9-36.7)
[2023-01-03] MEDS: ipratropium-albuterol 3 mL Neb INHALATION ×3 (05:09→16:50)
--- NOTE | 2023-01-03 06:00 | USCV_ITS ---
Edouard Elvin Age: 62 Gender: M : 1960 Exam Date: 01/03/2023 10:29 Ordering Phys: Bernie Park MD ([email or web address]) Technologist: [place] [facility] [place]: unstable angina BP: / HR: Rhythm: Sinus Technical Quality: Adequate MEASUREMENTS (Male / Female) Normal Values FINDINGS Left Ventricle Normal left ventricular size and systolic function, EF 55%, [visual]. Right Ventricle The right ventricle is normal in size and function. Right Atrium The right atrium is normal in size. Left Atrium The left atrium is normal in size. Mitral Valve Thickened mitral valve. Trace mitral valve regurgitation. Aortic Valve Thickened aortic valve. Tricuspid Valve Trace to mild tricuspid valve regurgitation. Pulmonic Valve No gross abnormalities noted Pericardium Normal pericardium without effusion. Aorta Normal ascending aorta dimension. IVC The inferior vena cava appears normal. CONCLUSIONS Normal left ventricular size and systolic function, EF 55%, [visual]. No gross wall motion abnormalities Thickened mitral valve. Trace mitral valve regurgitation. Thickened aortic valve. Trace to mild tricuspid valve regurgitation. There is no pericardial effusion. There are no intracardiac masses. No similar previous studies are available for comparison Dr Bernie Park MD [facility] (Electronically Signed) Final Date: 03 January 2023 20:25 S
[2023-01-03] MEDS: budesonide 0.5 mg/2 mL Neb INHALATION ×2 (08:14→20:49)
[2023-01-03] MEDS: pantoprazole DR 40 mg Tablet PO (08:51)
[2023-01-03] MEDS: sodium chloride 0.9% 1,000 ML 50 ML IV (08:51)
[2023-01-03] MEDS: aspirin 325 mg Tablet PO (08:51)
[2023-01-03] MEDS: OLANZapine 5 mg TABLET 2.5 MG PO (08:51)
[2023-01-03] MEDS: citalopram 20 mg Tablet PO (08:51)
[2023-01-03] MEDS: isosorbide mononitrate ER 30 mg Tablet PO (09:13)
[2023-01-03] MEDS: metoprolol tartrate 25 mg Tablet PO ×2 (09:13→21:09)
--- NOTE | 2023-01-03 09:47 | XACV_ITS ---
Exam Room: [facility] Ht: 170 cm Wt: 112 kg BSA: 2.35 m2 Gender: Male : 1960 Any Known Allergies: No known allergies Exam Priority: Routine Procedure(s): Procedure Description: Diagnostic procedure Procedure Description: Left Heart Catheterization Procedure Description: Coronary Angiography Procedure Description: Pressure Wire Xavier KEEN; Diagnostic Cath Status: Elective Diagnostic Findings * INDICATION: Worsening angina/ abnormal stress test. * Left Main has no signfiicant disease. * Circumflex has no significant disease. * Proximal Left Anterior Descending: moderate 40-50% stenosis, NANCY: 3 flow. * Right Coronary Artery has no disease. * Coronary angiography shows right dominance. Interventional Findings * Procedure detail: * We engaged left main artery with CLS 3.0 guide catheter. IV heparin was administered to maintain ACT above 250 S. * After normalization, IFR wire was put in distal LAD. iFR value of 0.90 was obtained that was nonischemic. Medical therapy was decided. IFR wire and guide catheter were removed. Patient left the Promotions Specialist in a stable condition for. Conclusions 1. Moderate proximal LAD stenosis s/p IFR that was nonischemic. Medical therapy decided.. Recommendations * Aggressive risk factor modification. * Outpatient cardiology follow-up in 4-week. Interventional RX Recommendation: medical therapy and/or counseling Diagnostic RX Recommendation: medical therapy and/or counseling Anticoagulation: Heparin Pressures Phase:Rest AO : 126 / 75 ( 102 ) @ 1:00:00 PM 126 / 79 ( 96 ) @ 1:00:00 PM 123 / 81 ( 96 ) @ 1:05:00 PM LV : 122 / 17 / 28 @ 1:00:00 PM Valves Phase:DefaultPhase AV : 0.0 @ 12:21:27 PM 0.0 @ 12:21:27 PM AV Mean Gradient: 0.0 @ 12:21:27 PM 0.0 @ 12:21:27 PM Clinical Evaluation EBL: 5mL-10mL Procedural Details Procedure Consent Obtained. Pre-Procedure Time Out. Identified patient by full name and date of as verbalized by the patient/guarantor. Does the consent match the physician's order: Yes. Accurate & Complete Informed Consent: Yes. Inpatient/Outpatient History & Physical on Chart: Yes. If H&P is completed, is and addenduem needed: No. Visualize and Verify Site with Patient/Guarantor: N/A. Relevant Radiology Images available: Yes. The risks, benefits, and alternatives of sedation and/or procedure were discussed by physician. The patient agrees to continue. Procedure started. [facility] Clinical Fraility Score: 4: Vulnerable. Promotions Specialist Indications: Worsening Angina/abnormal stress test. Chest Pain Symptom Assessment: Typical Angina Symptoms. Cardiovascular Instability: No. Correct patient, site and procedure confirmed by cath team. PERRLA. Strong, equal hand allied health teacher bilaterally. Lungs clear x 5 lobes. IV Site on Arrival: 18 gauge in the left forearm. IV Fluids: 0.9% NaCl at KVO. 500 mL infused prior to sugar laboratory assistant. Pre Procedural Pulses: bilateral posterior tibial was 1+. Pre Procedural Pulses: bilateral radial was 3+. Pre Procedural Pulses: right dorsalis pedis was 1+. Pre Procedural Pulses: left dorsalis pedis was 3+. Oxygen started at 5liters/min via nasal canula. right groin was prepped with chloroprep then draped in the usual sterile fashion. right radial was prepped with chloroprep then draped in the usual sterile fashion. Physician notified. Baseline sample Acquired. HR: 76 BPM. Patient's family unavailable. Equipment: 6F - Radial. Cardiac Cath Pack. ACIST Manifold Kit Model BT 2000. Heparinized Saline (2 units/mL), 1000 mL bag. Physician arrived. Physician scrubbed in. Immediate Pre-Procedure Time Out. Correct Patient: Yes; Correct Procedure: Yes; Correct Site: Yes; Correct Patient Position: Yes; Correct Supplies: Yes; Dried Flammable Prep: Yes; Blood Products Available: N/A;. Lidocaine 1% infiltrated to the right radial. Arterial access obtained. A 5 maldivian TIG catheter in over the standard J wire. Multiple views taken of left coronary artery. Catheter redirected to the RCA, unable to cannulate. Catheter removed over the exchange J wire. A 5 maldivian JR4 catheter in over the exchange J wire. Multiple views taken of right coronary artery. Catheter removed over the exchange J wire. A 5 maldivian Angled Pig catheter in over the exchange J wire. EDP Sample taken: LV 122/17,28; HR: 68 BPM; SpO2: 96%. Pullback taken: LV Off; AO 126/75(102); Mean: 0mmHg, Peak to Peak: 0mmHg, SEP: 29sec/min; HR: 88 BPM; SpO2: 96%. Catheter removed over the exchange J wire. 6 maldivian CLS 3 guide catheter was inserted over the exchange J wire. iFR guidewire was advanced through the guide catheter to lesion in the Prox LAD. Add inventory: Endoflator, iFR wire, Co-[employer] Crew Boss. Fractional flow reserve measurements obtained. iFR spot of 0.90 with a pullback of 0.92 of the Proximal LAD. iFR wire out. Results checked. Guide catheter out. Dr Coyle scrubbed out. A TR Band was successful obtaining hemostatsis at the Right Radial artery insertion site. TR band placed. Hemostasis obtained. Post Procedure: Pulses reassessed and unchanged. PERRLA. Strong, equal hand allied health teacher bilaterally. No VTE prophylaxis required. Medication's Wasted: Lidocaine 1% = 3 mL. Medication's Wasted: Nitro = 49.8 mg. Medication's Wasted: Heparin = 2000 units. Medication's Wasted: Other = Fentanyl 75 mcg. Total IV fluids: 104 mL. Post-op diagnosis: Moderate proximal LAD stenosis s/p non ischemic iFR. Complications: none. Estimated blood loss: 5mL-10mL. Responsiveness - Normal response to verbal stimuli; alert and oriented, PERRLA. Airway - Unaffected, no intervention required; spontaneous ventilation. Circulation: W/N/L, pulses unchanged. Nausea/Vomiting: No. Procedure completed. Patient transferred by bed to 1st floor. Vital chart was stopped. Access Site Site: Right Radial artery Sheath Size: 6 Fr Hemostasis Method: TR Band Hemostasis Success: Successful Procedure Medications Start: 11:39 AM Stop: 11:39 AM Medication: Versed Amount: 1 mg Route: I.V. Start: 11:39 AM Stop: 11:39 AM Medication: Fentanyl Amount: 25 mcg Route: I.V. Start: 11:51 AM Stop: 11:51 AM Medication: Heparin Amount: 3000 units Route: I.V. Start: 12:01 PM Stop: 12:01 PM Medication: Heparin Amount: 4000 units Route: I.V. Start: 12:03 PM Stop: 12:03 PM Medication: Versed Amount: 1 mg Route: I.V. I, the attending physician, have reviewed and verified all procedure medications. Yes, all medications given per verbal order History/Risk Factors Hypertension: Yes Dyslipidemia: Yes Peripheral Arterial Disease (PAD): No Myocardial Infarction (NM): No Obesity: Yes Renal Disease: No Tobacco Use: Former Prior 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 PCI: No CABG: No Valve Surgery: No Report Signatures Finalized by Kedar Coyle MD on 01/14/2023 01:33 PM
[2023-01-03] MEDS: diphenhydrAMINE 50 mg Capsule PO (09:48)
--- NOTE | 2023-01-03 10:17 | P.PN_ITS ---
Subjective Subjective: The patient continues to have some tight feeling in the chest. Also has the musculoskeletal type of pain on the left side of the chest. Also has a dry cough with occasional whitish sputum. No fever or chills. Medications: Medication Review Details: Current Medications Acetaminophen (Acetaminophen 325 Mg Tablet) 650 mg PO Q6H PRN PRN Reason: Mild/Mod Pain Or Temp >/= 101 Albuterol/Ipratropium (Ipratropium-Albuterol 3 Ml Neb) 3 ml INHALATION Q6H PRN PRN Reason: shortness of breath or wheezing Last Admin: 01/03/23 08:14 Dose: 3 ml Aspirin (Aspirin 81 Mg Ec Tablet) 81 mg PO DAILY [facility] Last Admin: 01/03/23 09:06 Dose: Not Given Atorvastatin Calcium (Atorvastatin 40 Mg Tablet) 40 mg PO BEDTIME TAMMY Budesonide (Budesonide 0.5 Mg/2 Ml Neb) 0.5 mg INHALATION BID.RESPIRATORY TAMMY Last Admin: 01/03/23 08:14 Dose: 0.5 mg Citalopram Hydrobromide (Citalopram 20 Mg Tablet) 20 mg PO DAILY TAMMY Last Admin: 01/03/23 08:51 Dose: 20 mg Gabapentin (Gabapentin 300 Mg Capsule) 300 mg PO Q8H TAMMY Last Admin: 01/03/23 03:40 Dose: 300 mg Heparin Sodium (Porcine) (Heparin 5,000 Unit/Ml Inj 1 Ml) 0 unit IV PRN PRN; Protocol PRN Reason: Heparin weight-base protocol Last Admin: 01/02/23 15:42 Dose: 5,500 unit Heparin Sodium/Sodium Chloride (Heparin Drip) 25,000 unit in 500 mls @ 0 mls/hr IV .Q0M TAMMY; Protocol Last Titration: 01/02/23 21:24 Dose: 12.75 unit/kg/hr, 28 mls/hr Sodium Chloride (Sodium Chloride 0.9%) 1,000 mls @ 50 mls/hr IV .Q20H ONE Stop: 01/04/23 04:12 Last Admin: 01/03/23 08:51 Dose: 50 mls/hr Isosorbide Mononitrate (Isosorbide Mononitrate Er 30 Mg Tablet) 30 mg PO DAILY TAMMY Last Admin: 01/03/23 09:13 Dose: 30 mg Latanoprost (Latanoprost 0.005% Op Soln 2.5 Ml Btl) 1 drop EYE-BOTH DAILY [facility] Metoprolol Tartrate (Metoprolol Tartrate 25 Mg Tablet) 25 mg PO BID@0900,2100 [facility] Last Admin: 01/03/23 09:13 Dose: 25 mg Morphine Sulfate (Morphine 4 Mg/Ml Sdv 1 Ml) 2 mg IVP Q4H PRN PRN Reason: SEVERE PAIN Olanzapine (Olanzapine 5 Mg Tablet) 2.5 mg PO DAILY [facility] [place] Last Admin: 01/03/23 08:51 Dose: 2.5 mg Ondansetron HCl (Ondansetron 2 Mg/Ml Sdv 2 Ml) 4 mg IVP Q6H PRN PRN Reason: NAUSEA AND VOMITING Pantoprazole Sodium (Pantoprazole Dr 40 Mg Tablet) 40 mg PO DAILY [facility] [place] Last Admin: 01/03/23 08:51 Dose: 40 mg Primidone (Primidone 50 Mg Tablet) 100 mg PO BEDTIME [facility] [place] Last Admin: 01/02/23 20:32 Dose: 100 mg Vitals/I&O/Wt Last Vital Signs Temp 97.7 F 01/03/23 07:45 Pulse 69 01/03/23 08:17 Resp 20 H 01/03/23 08:15 BP 139/80 01/03/23 07:45 Pulse Ox 94 01/03/23 08:15 O2 Del Method 01/03/23 08:15 O2 Flow Rate 5 01/03/23 08:15 01/02/23 01/03/23 01/03/23 22:59 06:59 14:59 Intake Total 1075.73 / 1075.73 300 / 1375.73 Output Total 700 / 700 1100 / 1800 450 / 450 Balance 375.73 / 375.73 -800 / -424.27 -450 / -450 Weight last 48 hrs Weight 246 lb 11.2 oz Weight 246 lb 9 oz Weight 242 lb Physical Exam Narrative: GENERAL: The patient is alert and oriented times three. Not in any acute distress. HEENT: No significant pallor, icterus or lymphadenopathy.Oral cavity: There are no mucous membrane lesions. NECK: Trachea appears to be central. No masses noted. No JVD or thyromegaly appreciated. RESPIRATORY: Chest is symmetrical. No intercostals muscle retraction or any accessory muscle activation. There is no chest wall tenderness. Breath sounds are heard bilaterally. No rales or rhonchi heard. No evidence of any consolidation. BREASTS: Deferred. HEART: The heart sounds are normal. No S3 or S4. No significant murmurs. No pericardial rub ABDOMEN: No vessel pulsations or distention. No tenderness. No organomegaly appreciated. Bowel sounds are normally heard. : Deferred. RECTAL: Deferred. LYMPHATIC: No lymphadenopathy noted in the neck. EXTREMITIES: No edema or cyanosis. No clubbing. MUSCULOSKELETAL: No acute joint deformities or swelling SKIN: There are no significant rashes or ecchymosis NEUROPSYCHIATRIC: The patient is alert and oriented x3. Appears to be in a good mood. No tremors or rigidity noted. Data 01/03/23 03:47 01/03/23 03:47 Other Labs: Laboratory Last Values WBC 8.7 10^3/uL (4.0-10.0) 01/03/23 03:47 RBC 4.09 10^6/uL (4.1-5.3) L 01/03/23 03:47 Hgb 11.8 g/dL (11.7-16.6) 01/03/23 03:47 Hct 37.6 % (42.0-52.0) L 01/03/23 03:47 MCV 91.9 fl (80-94) 01/03/23 03:47 MCH 28.9 pg (28.0-34.0) 01/03/23 03:47 MCHC 31.4 g/dL (30.0-36.0) 01/03/23 03:47 RDW 13.1 % (12.1-15.1) 01/03/23 03:47 Plt Count 199 10^3/cmm (130-400) 01/03/23 03:47 MPV 10.3 fL (7.4-10.4) 01/03/23 03:47 Neut % (Auto) 83.5 % 01/03/23 03:47 Lymph % (Auto) 8.4 % 01/03/23 03:47 Burke % (Auto) 7.5 % 01/03/23 03:47 Eos % (Auto) 0.0 % 01/03/23 03:47 Baso % (Auto) 0.0 % 01/03/23 03:47 Neut # (Auto) 7.28 10^3/uL (1.8-7.7) 01/03/23 03:47 Lymph # (Auto) 0.7 10^3/uL (0.8-4.8) L 01/03/23 03:47 Burke # (Auto) 0.7 10^3/uL (0.2-0.9) 01/03/23 03:47 Eos # (Auto) 0.0 10^3/uL (0.0-0.8) 01/03/23 03:47 Baso # (Auto) 0.0 10^3/uL (0.0-0.1) 01/03/23 03:47 Nucleated RBC % (auto) 0 % 01/03/23 03:47 Nucleated RBCs # 0.0 /100WBC 01/03/23 03:47 PT 13.30 SECONDS (12.1-14.9) 01/03/23 03:47 INR 0.98 (0.8-1.2) 01/03/23 03:47 APTT 72.6 SECONDS (23.9-36.7) H 01/03/23 03:47 Sodium 135 mmol/L (136-145) L 01/03/23 03:47 Potassium 4.3 mmol/L (3.5-5.1) 01/03/23 03:47 Chloride 99 mmol/L (98-107) 01/03/23 03:47 Carbon Dioxide 28 mmol/L (22-29) 01/03/23 03:47 Anion Gap 12.3 (5-19) 01/03/23 03:47 BUN 19 mg/dL (8-23) 01/03/23 03:47 Creatinine 0.7 mg/dL (0.7-1.2) 01/03/23 03:47 GFR Calculation 113.9 mL/min (90-130) 01/03/23 03:47 Glucose 129 mg/dL (65-115) H 01/03/23 03:47 Estimat Average Glucose 100 01/03/23 03:47 Hemoglobin A1c 5.1 % (4.0-6.0) 01/03/23 03:47 Calculated Osmolality 284 mOsm/kg (285-295) L 01/03/23 03:47 Calcium 8.4 mg/dL (8.5-10.5) L 01/03/23 03:47 Phosphorus 2.6 mg/dL (2.5-4.5) 01/03/23 03:47 Magnesium 2.0 mg/dL (1.7-2.3) 01/03/23 03:47 Total Bilirubin 0.2 mg/dL (0.15-1.2) 01/02/23 14:30 AST 16 U/L (0-40) 01/02/23 14:30 ALT 14 U/L (0-41) 01/02/23 14:30 Alkaline Phosphatase 65 U/L (40-130) 01/02/23 14:30 Troponin T Baseline 7 ng/L (0-15) 01/02/23 14:30 Troponin T 120 Minute 6.00 ng/L (0-15) 01/02/23 16:09 Delta Troponin T -1 ABS# (0-10) L 01/02/23 16:09 Troponin T Hi Sens 6Hr 6.00 ng/L (0-15) 01/02/23 20:28 Troponin T Hi Sens 6Hr Delta -1 ng/L (0-12) L 01/02/23 20:28 NT-Pro-B Natriuret Pep 241 pg/mL (0-125) H 01/02/23 14:30 Total Protein 6.9 g/dL (6.6-8.7) 01/02/23 14:30 Albumin 3.6 g/dL (3.5-5.2) 01/02/23 14:30 Globulin 3.3 g/dL (1.3-4.6) 01/02/23 14:30 Triglycerides 50 mg/dL (0-150) 01/03/23 03:47 Cholesterol 199 mg/dL (0-200) 01/03/23 03:47 LDL Cholesterol, Calc 133 mg/dL (50-129) H 01/03/23 03:47 HDL Cholesterol 56 mg/dL (60-100) L 01/03/23 03:47 LDL/HDL Ratio 2.38 RATIO (0.00-3.22) 01/03/23 03:47 Cholesterol/HDL Ratio 3.55 mg/dL (1.0-5.00) 01/03/23 03:47 Oh okay thanks Echo: My impression: Echocardiogram from today normal left ventricular size and systolic function, EF 55%, ?[visual]. ?No gross wall motion abnormalities ?Thickened mitral valve. Trace mitral valve regurgitation. ?Thickened aortic valve. ?Trace to mild tricuspid valve regurgitation. ?There is no pericardial effusion. ?There are no intracardiac masses. ?No similar previous studies are available for comparison A&P Assessment and plan (1) Unstable angina pectoris: Currently the symptoms are stable. For further evaluation of the symptoms, he requires a cardiac catheterization. (2) Abnormal cardiovascular stress test: Patient has an abnormal perfusion scan, suggestive of ischemia in the distribution of the right coronary artery. For further evaluation, a cardiac catheterization would be appropriate. (3) Recurrent syncope: Patient is somewhat vague about this symptom. There is no witnessed syncopal episode so far. Patient may have a vasovagal syncope. This may further need to be evaluated with an event monitor. (4) SOB (shortness of breath): The etiology agrees multifactorial. COPD/emphysema, pulmonary fibrosis, LV dysfunction, contributing factors. The LV ejection fraction is within normal limits by echocardiogram (5) Asthma-COPD overlap syndrome: Continue the current management as it is. Plan Discussed with the patient and his sister who is the caregiver, the risk and benefits of the cardiac catheterization. The risk of bleeding, hematoma, vascular injury, myocardial infarction, myocardial perforation, malignant cardiac arrhythmias ,CVA, renal failure and other concomitant complications were explained in detail. Patient understood this well and consented to proceed. Based on the angiogram findings, further recommendations will be made. The angiogram will be performed by my colleague Dr. Leonides Jones Medical Necessity Statement*: Patient requires continued hospital stay for close monitoring and further management Coding Level of Care Code 53939 Diagnoses Unstable angina pectoris I20.0 Abnormal cardiovascular stress test R94.39 Recurrent syncope R55 SOB (shortness of breath) R06.02 Asthma-COPD overlap syndrome J44.9
[2023-01-03] MEDS: heparin drip 25,000 UNIT/500 ML PREMIX 28 UNIT IV (10:37)
[2023-01-03 10:44] LABS: Partial Thromboplastin Time 62.1 SECONDS (23.9-36.7)
--- NOTE | 2023-01-03 11:38 | W.PM.OPSUD ---
Surgery/Procedure H&P Update DATE OF PROCEDURE: January 03, 2023 DATE H&P PERFORMED: 01/02/23 H&P UPDATE INFORMATION: I have reviewed H&P completed within last 30 days, I have examined patient prior to procedure and No changes to prior documentation PREOP DIAGNOSIS: Unstable angina/ abnormal stress test PRIMARY INDICATION FOR PROCEDURE: Unstable angina/ abnormal stress test PLANNED PROCEDURE: Left heart cath with possible percutaneous coronary intervention PATIENT REASSESSED PRIOR TO SEDATION, WITH NO CHANGE NOTED: Yes PHYSICAL EXAM: alert, oriented x 3, clear to auscultation bilaterally and regular rate & rhythm AIRWAY EVAL/ANESTHESIA PLAN: normal airway, ASA III, Local Anesthesia, Risks, benefits & alternatives of sedation and/or procedure discussed and Patient agrees to continue as planned ADDITIONAL INFORMATION: Moderate sedation
--- NOTE | 2023-01-03 12:03 | PC.NURSE ---
to cardiac cathead operator via bed at 1230
--- NOTE | 2023-01-03 12:25 | PM.MISC ---
Miscellaneous Note Purpose of Documentation: Brief procedure note Note: Moderate proximal LAD stenosis with 40-50%. No significant disease noted in the left circumflex artery and RCA territories. LVEDP is elevated.
--- NOTE | 2023-01-03 13:42 | PC.NURSE ---
received from cardiac company laborer at 1320.report received.pt is drowsy but easily awakened.sr/sb on monitor.denies pain at present.right wrist with tr band on and inflated.right hand is warm to touch and with brisk capillary refill.palpable radial pulse noted distal to tr band.no hematoma formation noted.pt and cg instructed in activity restrictions s/p radial artery procedure...and instructed to notify staff for any bleeding,pain,sob,numbness..or for any concerns at all.they verb understanding of instructions
[2023-01-03] MEDS: latanoprost 0.005% Op Soln 2.5 mL Btl 1 DROP EYE-BOTH (17:54)
[2023-01-03] MEDS: atorvastatin 40 mg Tablet PO (21:09)
[2023-01-03] MEDS: primidone 50 mg Tablet 100 MG PO (21:10)
--- NOTE | 2023-01-03 23:15 | PM.PN ---
Subjective Subjective: Patient underwent cardiac catheterization today. He was noted to have a proximal LAD stenosis of 40 to 50% but IFR of the LAD lesion was nonischemic. No significant disease noted in the left circumflex or RCA territories. TR band was in place until the evening. With patient's cognitive baseline, concerned about him following appropriate instructions overnight. Not currently with new complaints. Echocardiogram revealed an ejection fraction of 55%. Vitals/I&O/Wt Last Vital Signs Temp 97.5 F L 01/03/23 20:00 Pulse 72 01/03/23 22:00 Resp 17 01/03/23 20:00 BP 97/60 01/03/23 20:00 Pulse Ox 95 01/03/23 20:00 O2 Del Method 01/03/23 21:00 O2 Flow Rate 1.5 01/03/23 20:00 01/03/23 01/03/23 01/04/23 14:59 22:59 06:59 Intake Total 324.27 / 324.27 236 / 560.27 Output Total 450 / 450 Balance -125.73 / -125.73 236 / 110.27 Weight last 48 hrs Weight 111.901 kg Weight 111.839 kg Weight 109.769 kg Data 01/03/23 03:47 01/03/23 03:47 A&P Assessment and plan (1) Unstable angina pectoris: Without obstructive coronary artery disease requiring intervention, for medical management status postcardiac catheterization with no targets for intervention identified (2) Abnormal cardiovascular stress test: Abnormality identified in the RCA territory in September of this year, though not noted on cardiac catheterization (3) Recurrent syncope: Preceding admission (4) Pulmonary fibrosis: With COPD (5) 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 (6) Tremor: On chronic primidone (7) Left leg DVT: In July 2022 status post anticoagulation treatment, venous duplex here shows no DVT (8) Dyslipidemia: With slightly low HDL and slightly elevated LDL (9) Cognitive impairment: Plan Elevated blood sugar without history of diabetes -A1c 5.1 Continue aspirin and statin therapy Started on metoprolol and isosorbide Will monitor blood pressures and heart rate overnight for tolerance Monitor respiratory status also Continue breathing treatments with DuoNebs and budesonide/usual home regimens are nonformulary Low-dose Zyprexa is a home medication, as are primidone and gabapentin and citalopram Off home monoclonal antibodies presently PPI for GI prophylaxis Add SCDs now that he is off of anticoagulation Supportive care otherwise If remains stable overnight on added medications plan for discharge in the morning Attestations Medical Necessity Statement*: Stay will now crossed 2 midnights given identified coronary artery disease requiring initiation of new medications for symptom control. Comorbid pulmonary disease and other diagnoses that merit monitoring at least overnight to ensure tolerance and no new issues arise. Coding Level of Care Code Acute Code for g Fwd Diagnoses Unstable angina pectoris I20.0 Abnormal cardiovascular stress test R94.39 Recurrent syncope R55 Pulmonary fibrosis J84.10 Eosinophilic asthma J82.83 Tremor R25.1 Left leg DVT I82.402 Dyslipidemia E78.5 Cognitive impairment R41.89
[2023-01-04] VITALS (98 sets, daily range): BP systolic 107–110; BP diastolic 63–71; PULSE 51–102; RESP 12–36; TEMP 36.6–36.8; O2SAT 81–99
[2023-01-04] MEDS: gabapentin 300 mg Capsule PO ×2 (03:59→12:57)
[2023-01-04] MEDS: budesonide 0.5 mg/2 mL Neb INHALATION (07:19)
[2023-01-04] MEDS: isosorbide mononitrate ER 30 mg Tablet PO (08:56)
[2023-01-04] MEDS: latanoprost 0.005% Op Soln 2.5 mL Btl 1 DROP EYE-BOTH (08:56)
[2023-01-04] MEDS: metoprolol tartrate 25 mg Tablet PO (08:56)
[2023-01-04] MEDS: aspirin 81 mg EC Tablet PO (08:57)
[2023-01-04] MEDS: OLANZapine 5 mg TABLET 2.5 MG PO (08:57)
[2023-01-04] MEDS: pantoprazole DR 40 mg Tablet PO (08:57)
[2023-01-04] MEDS: citalopram 20 mg Tablet PO (08:57)
--- NOTE | 2023-01-04 11:20 | PM.DCS ---
Discharge Providers Date of Admission: 01/03/23 19:13 Date of Discharge: January 04, 2023 Attending Provider at Admission: Bernie Park MD Attending Provider at Discharge: Brianna Watkins MD Primary Care Provider: Shweta Mráquez DO Diagnoses at Discharge Discharge Diagnosis (1) Unstable angina pectoris: Details from hospital stay: Patient underwent cardiac catheterization today.? He was noted to have a proximal LAD stenosis of 40 to 50% but IFR of the LAD lesion was nonischemic.? No significant disease noted in the left circumflex or RCA territories. Medical management initiated with metoprolol and isosorbide, aspirin and statin therapy. To follow up with cardiology. Patient also with a separate musculoskeletal chest pain at left lower lateral thorax completely reproducible on exam. Status: Acute (2) Abnormal cardiovascular stress test: Details from hospital stay: Abnormality identified in the RCA territory in September of this year, though not noted on cardiac catheterization Status: Acute (3) Recurrent syncope: Details from hospital stay: Preceding admission Status: Acute (4) Pulmonary fibrosis: Details from hospital stay: With COPD, chronic, not acutely exacerbated Status: Acute (5) Eosinophilic asthma: Details from hospital stay: Chronically on Fasrena Status: Chronic (6) Tremor: Details from hospital stay: On chronic primidone Status: Chronic (7) Left leg DVT: Details from hospital stay: Resolved, not evident on US this stay Status: Resolved Permanent problem details: 07/2022 (8) Dyslipidemia: Details from hospital stay: With slightly low HDL and slightly elevated LDL Status: Acute (9) Cognitive impairment: Status: Chronic Reason for Visit Reason for Visit: shortness of breath, chest pain Brief History: Elvin Nunn is a 62 year old male who presented to the emergency room with chest pain.? He has had chest pain off and on for some time.? He had a stress test in September of this year that showed a small to medium sized area of ischemia in the RCA territory with normal LV function.? Recommendation has been for further work-up including cardiac catheterization.? He last saw Dr. Park in November.? He was due to have an echocardiogram with subsequent plan for cath pending the results of that but it was not done.? Today he describes both a musculoskeletal pain component that is reproducible but also a left-sided chest pain more concerning for angina that is gradually becoming more and more severe.? Initial troponin was 6.? EKG showed nonspecific changes.? ER physician reviewed with Dr. Park and patient is being admitted to hospitalist service with plan for cardiac catheterization.? He has had improvement in discomfort after nitroglycerin.? He is currently chest pain-free. No reports of any bleeding.? He does have some dyspnea on exertion and an intermittent cough.? Describes some subjective fevers.? No changes in bowel or bladder function.? No calf pain.? He did have a DVT in his left lower extremity involving the popliteal and peroneal veins identified in July 2022 for which he was on anticoagulants for period of time.? He does reports pain still and swelling in that leg.? He was supposed to have had a follow-up ultrasound but never had it done.? He is not currently on any form of anticoagulation. Hospital Course Hospital Course Mr. Nunn was admitted to medical bed. Serial cardiac enzymes were checked and were unremarkable as were EKGs. He continued to complain of pain. He underwent cardiac catheterization in which she was found to have 50% proximal LAD stenosis but IFR was nonischemic. No significant disease was noted in the left circumflex or RCA territories. Medical management was initiated with aspirin and statin therapy at first followed by initiation of metoprolol and isosorbide. Patient tolerated initiation of these medications well thus far. Lipid panel actually showed only mild increased LDL and slightly low HDL. A1c was unremarkable. Heart rate and blood pressure were stable after starting new medications. He continued to have his usual episodes of increased difficulty breathing that improved with breathing treatment. We do not have his usual respiratory medicines on formulary. Per patient and sister breathing is not worse than baseline. Patient is felt stable for discharge home. He continues to have reproducible chest pain in the left lateral thorax but is not experiencing the same heaviness that he had when he first presented. He has some scattered wheezes. Regular rhythm. Radial cath site without bruising though he is tender to palpation, brisk capillary refill at fingertips. Plan for additional medications was reviewed. He will need liver function studies checked in a few weeks with statin initiation and monitoring of blood pressure, heart rate and for symptoms. Discharge Data Studies Completed and Pending Completed Studies During Hospitalization Category Date Time Status XR chest 1V portable [id number] Stat Exams 01/02/23 14:21 Completed CV. echo complete* [id number] Routine Ultrasound 01/03/23 06:00 Completed US venous duplex lower extremity LT [CV venous duplex Ultrasound 01/02/23 22:57 [place] [id number]] Routine Pending at discharge Category Date Time Status CERTIFIED MIDWIFE request for service Routine Exams 01/03/23 09:47 completed, final report pending Radiology Impressions Chest X-Ray 01/02/23 14:21 IMPRESSION: Chronic appearing changes in both lower lung antonio with no definite acute pulmonary parenchymal or pleural abnormality. Venous Duplex 01/02/23 22:57 IMPRESSION: No evidence of deep vein thrombosis. ECHO CONCLUSIONS ?Normal left ventricular size and systolic function, EF 55%, ?[visual]. ?No gross wall motion abnormalities ?Thickened mitral valve. Trace mitral valve regurgitation. ?Thickened aortic valve. ?Trace to mild tricuspid valve regurgitation. ?There is no pericardial effusion. ?There are no intracardiac masses. ?No similar previous studies are available for comparison Laboratory Results WBC 8.7 10^3/uL (4.0-10.0) 01/03/23 03:47 RBC 4.09 10^6/uL (4.1-5.3) L 01/03/23 03:47 Hgb 11.8 g/dL (11.7-16.6) 01/03/23 03:47 Hct 37.6 % (42.0-52.0) L 01/03/23 03:47 MCV 91.9 fl (80-94) 01/03/23 03:47 MCH 28.9 pg (28.0-34.0) 01/03/23 03:47 MCHC 31.4 g/dL (30.0-36.0) 01/03/23 03:47 RDW 13.1 % (12.1-15.1) 01/03/23 03:47 Plt Count 199 10^3/cmm (130-400) 01/03/23 03:47 MPV 10.3 fL (7.4-10.4) 01/03/23 03:47 Neut % (Auto) 83.5 % 01/03/23 03:47 Lymph % (Auto) 8.4 % 01/03/23 03:47 Mills % (Auto) 7.5 % 01/03/23 03:47 Eos % (Auto) 0.0 % 01/03/23 03:47 Baso % (Auto) 0.0 % 01/03/23 03:47 Neut # (Auto) 7.28 10^3/uL (1.8-7.7) 01/03/23 03:47 Lymph # (Auto) 0.7 10^3/uL (0.8-4.8) L 01/03/23 03:47 Mills # (Auto) 0.7 10^3/uL (0.2-0.9) 01/03/23 03:47 Eos # (Auto) 0.0 10^3/uL (0.0-0.8) 01/03/23 03:47 Baso # (Auto) 0.0 10^3/uL (0.0-0.1) 01/03/23 03:47 Nucleated RBC % (auto) 0 % 01/03/23 03:47 Nucleated RBCs # 0.0 /100WBC 01/03/23 03:47 PT 13.30 SECONDS (12.1-14.9) 01/03/23 03:47 INR 0.98 (0.8-1.2) 01/03/23 03:47 APTT 62.1 SECONDS (23.9-36.7) H 01/03/23 10:12 Sodium 135 mmol/L (136-145) L 01/03/23 03:47 Potassium 4.3 mmol/L (3.5-5.1) 01/03/23 03:47 Chloride 99 mmol/L (98-107) 01/03/23 03:47 Carbon Dioxide 28 mmol/L (22-29) 01/03/23 03:47 Anion Gap 12.3 (5-19) 01/03/23 03:47 BUN 19 mg/dL (8-23) 01/03/23 03:47 Creatinine 0.7 mg/dL (0.7-1.2) 01/03/23 03:47 GFR Calculation 113.9 mL/min (90-130) 01/03/23 03:47 Glucose 129 mg/dL (65-115) H 01/03/23 03:47 Estimat Average Glucose 100 01/03/23 03:47 Hemoglobin A1c 5.1 % (4.0-6.0) 01/03/23 03:47 Calculated Osmolality 284 mOsm/kg (285-295) L 01/03/23 03:47 Calcium 8.4 mg/dL (8.5-10.5) L 01/03/23 03:47 Phosphorus 2.6 mg/dL (2.5-4.5) 01/03/23 03:47 Magnesium 2.0 mg/dL (1.7-2.3) 01/03/23 03:47 Total Bilirubin 0.2 mg/dL (0.15-1.2) 01/02/23 14:30 AST 16 U/L (0-40) 01/02/23 14:30 ALT 14 U/L (0-41) 01/02/23 14:30 Alkaline Phosphatase 65 U/L (40-130) 01/02/23 14:30 Troponin T Baseline 7 ng/L (0-15) 01/02/23 14:30 Troponin T 120 Minute 6.00 ng/L (0-15) 01/02/23 16:09 Delta Troponin T -1 ABS# (0-10) L 01/02/23 16:09 Troponin T Hi Sens 6Hr 6.00 ng/L (0-15) 01/02/23 20:28 Troponin T Hi Sens 6Hr Delta -1 ng/L (0-12) L 01/02/23 20:28 NT-Pro-B Natriuret Pep 241 pg/mL (0-125) H 01/02/23 14:30 Total Protein 6.9 g/dL (6.6-8.7) 01/02/23 14:30 Albumin 3.6 g/dL (3.5-5.2) 01/02/23 14:30 Globulin 3.3 g/dL (1.3-4.6) 01/02/23 14:30 Triglycerides 50 mg/dL (0-150) 01/03/23 03:47 Cholesterol 199 mg/dL (0-200) 01/03/23 03:47 LDL Cholesterol, Calc 133 mg/dL (50-129) H 01/03/23 03:47 HDL Cholesterol 56 mg/dL (60-100) L 01/03/23 03:47 LDL/HDL Ratio 2.38 RATIO (0.00-3.22) 01/03/23 03:47 Cholesterol/HDL Ratio 3.55 mg/dL (1.0-5.00) 01/03/23 03:47 Vitals Last Vital Signs Temp 97.8 F 01/04/23 03:56 Pulse 68 01/04/23 09:10 Resp 17 01/04/23 09:10 BP 110/71 01/04/23 09:10 Pulse Ox 81 L 01/04/23 08:05 O2 Del Method 01/04/23 07:21 O2 Flow Rate 2 01/04/23 07:21 Discharge Plan Discharge Patient Disposition: Home Condition: Stable Prescriptions: New aspirin 81 mg Tablet,Delayed Release (Dr/Ec) 81 mg PO DAILY 30 Days Qty: 30 0RF metoprolol tartrate 25 mg Tablet 25 mg PO BID@0900,2100 30 Days Qty: 60 0RF isosorbide mononitrate 30 mg Tablet Extended Release 24 Hr 30 mg PO DAILY 30 Days Qty: 30 0RF atorvastatin 20 mg tablet 20 mg PO DAILY Qty: 30 0RF Continued (DME) wheelchair See Rx Instructions .Route .MEDSUPPLY Qty: 1 0RF Rx Instructions: As directed (DME) hsopital bed See Rx Instructions .Route .MEDSUPPLY Qty: 1 0RF Rx Instructions: As directed citalopram 20 mg tablet 20 mg PO DAILY Qty: 90 0RF pantoprazole 40 mg tablet,delayed release (DR/EC) 40 mg PO DAILY Qty: 90 0RF primidone 50 mg tablet 100 mg PO BEDTIME nitroglycerin 0.4 mg tablet, sublingual 0.4 mg sublingual Q5M PRN (Reason: chest pain) 30 Days Qty: 30 3RF Rx Instructions: until response; do not exceed 3 doses per episode latanoprost 0.005 % drops 1 drp ophthalmic (eye) DAILY Breztri Aerosphere 160-9-4.8 mcg/actuation HFA aerosol inhaler 2 inh inhalation BID Fasenra Pen 30 mg/mL auto-injector 30 mg SUBCUT Q28D Qty: 1 2RF Rx Instructions: Loading dose ipratropium-albuterol 0.5 mg-3 mg(2.5 mg base)/3 mL solution for nebulization 3 ml inhalation Q6H PRN (Reason: shortness of breath or wheezing) Qty: 180 1RF cholecalciferol (vitamin D3) 125 mcg (5,000 unit) capsule 125 mcg PO DAILY Qty: 90 2RF albuterol sulfate 90 mcg/actuation HFA aerosol inhaler See Rx Instructions .ROUTE .COMPLEX Qty: 9 1RF Dose Instruction: INHALE 2 PUFFS BY MOUTH EVERY 6 HOURS NEEDED FOR SHORTNESS OF BREATH FOR WHEEZING Rx Instructions: INHALE 2 PUFFS BY MOUTH EVERY 6 HOURS NEEDED FOR SHORTNESS OF BREATH FOR WHEEZING olanzapine [Zyprexa] 2.5 mg tablet 2.5 mg PO DAILY Qty: 90 1RF vitamin B complex [B Complex-Vitamin B12] Tablet 1 tab PO DAILY Qty: 30 6RF gabapentin 300 mg capsule See Rx Instructions .ROUTE .COMPLEX Qty: 90 0RF Dose Instruction: TAKE 1 CAPSULE BY MOUTH EVERY 8 HOURS Rx Instructions: TAKE 1 CAPSULE BY MOUTH EVERY 8 HOURS denosumab 60 mg/mL syringe 60 mg SUBCUT Q180D Rx Instructions: 60 mg sq q 6 month Other Ambulatory Orders: Comprehensive Metabolic Panel (Routine) Timeframe: 2 Weeks Facility: [facility] - Location: Lab - Main Lab Ordered By: Brianna Watkins Referrals: In Home Service-Set up [Other] (This is the number for Medicaid In home service if you are interested. You will call the number and answer a series of questions and they will determine how many hours of service you qualify for. ) Bernie Park MD [Physician] - 2 months Shweta Márquez DO [Primary Care Provider] - 2 weeks Jessica Stein FNP [Nurse Practitioner] - 1 week Discharge Diet: Cardiac Discharge Activity: Increase activity as tolerated Patient Instructions: Metoprolol (By mouth), Aspirin (By mouth), Isosorbide Mononitrate (By mouth) (Imdur, Imdur ER, Ismo), Atorvastatin (By mouth), After Radial Heart Catheterization (GEN), Opioid Safety Activity Restrictions/Additional Instructions: You presented with recurrent episodes of chest pain and increased difficulty breathing. Given abnormal stress test earlier this year you underwent echocardiogram and cardiac catheterization this hospital stay. You were found to have 1 heart vessel that had a 40 to 50% blockage but further testing did not demonstrate evidence of ischemia (heart damage) related to this lesion. To help control your symptoms however you have been started on aspirin, a medication called metoprolol tartrate which helps her heart, a medication called isosorbide with help you not have heart pain as much as well as a cholesterol medication. Hopefully with this regimen the chest pain you have been experiencing will improve as well your breathing. Follow-up will be arranged at [facility] as well as with your primary care provider. You will need to have lab work checked in a few weeks secondary to initiation of medications. It would also be beneficial to check your heart rate and blood pressure, keeping a log which you can bring to the clinic. You will need to be careful using your right wrist for the next 48 hours. Do not lift more than 5 pounds. Follow other instructions provided to you. Keep your appointment scheduled with Dr. Fortune on January 22. Discharge Attestations Time Spent in Discharge Care*: greater than 30 min Specific Discharge Activities: educating patient, documenting/other paperwork and evaluating patient/reviewing data Quality Metrics Clinical Quality Measures [ No reported AMI, CVA or VTE this stay] Coding Level of Care Code 68424 Total time (in minutes) for Discharge: 40 Diagnoses Unstable angina pectoris I20.0 Abnormal cardiovascular stress test R94.39 Recurrent syncope R55 Pulmonary fibrosis J84.10 Eosinophilic asthma J82.83 Tremor R25.1 Left leg DVT I82.402 Dyslipidemia E78.5 Cognitive impairment R41.89
--- NOTE | 2023-01-04 13:56 | PM.PN ---
Subjective Subjective: Patient has been having some respiratory difficulties intermittently. No chest pain. No new arrhythmias. Medications: Medication Review Details: Current Medications Acetaminophen (Acetaminophen 325 Mg Tablet) 650 mg PO Q6H PRN PRN Reason: Mild/Mod Pain Or Temp >/= 101 Albuterol/Ipratropium (Ipratropium-Albuterol 3 Ml Neb) 3 ml INHALATION Q6H PRN PRN Reason: shortness of breath or wheezing Last Admin: 01/03/23 08:14 Dose: 3 ml Aspirin (Aspirin 81 Mg Ec Tablet) 81 mg PO DAILY [facility] Last Admin: 01/04/23 08:57 Dose: 81 mg Atorvastatin Calcium (Atorvastatin 40 Mg Tablet) 40 mg PO BEDTIME TAMMY Last Admin: 01/03/23 21:09 Dose: 40 mg Budesonide (Budesonide 0.5 Mg/2 Ml Neb) 0.5 mg INHALATION BID.RESPIRATORY [facility] Last Admin: 01/04/23 07:19 Dose: 0.5 mg Citalopram Hydrobromide (Citalopram 20 Mg Tablet) 20 mg PO DAILY TAMMY Last Admin: 01/04/23 08:57 Dose: 20 mg Gabapentin (Gabapentin 300 Mg Capsule) 300 mg PO Q8H [facility] Last Admin: 01/04/23 12:57 Dose: 300 mg Isosorbide Mononitrate (Isosorbide Mononitrate Er 30 Mg Tablet) 30 mg PO DAILY [facility] Last Admin: 01/04/23 08:56 Dose: 30 mg Latanoprost (Latanoprost 0.005% Op Soln 2.5 Ml Btl) 1 drop EYE-BOTH DAILY [facility] Last Admin: 01/04/23 08:56 Dose: 1 drop Metoprolol Tartrate (Metoprolol Tartrate 25 Mg Tablet) 25 mg PO BID@0900,2100 [facility] Last Admin: 01/04/23 08:56 Dose: 25 mg Olanzapine (Olanzapine 5 Mg Tablet) 2.5 mg PO DAILY [facility] Last Admin: 01/04/23 08:57 Dose: 2.5 mg Ondansetron HCl (Ondansetron 2 Mg/Ml Sdv 2 Ml) 4 mg IVP Q6H PRN PRN Reason: NAUSEA AND VOMITING Pantoprazole Sodium (Pantoprazole Dr 40 Mg Tablet) 40 mg PO DAILY [facility] Last Admin: 01/04/23 08:57 Dose: 40 mg Primidone (Primidone 50 Mg Tablet) 100 mg PO BEDTIME TAMMY Last Admin: 01/03/23 21:10 Dose: 100 mg Vitals/I&O/Wt Last Vital Signs Temp 97.8 F 01/04/23 03:56 Pulse 73 01/04/23 12:45 Resp 15 01/04/23 12:45 BP 110/71 01/04/23 12:45 Pulse Ox 94 01/04/23 12:45 O2 Del Method 01/04/23 11:39 O2 Flow Rate 3 01/04/23 11:39 01/03/23 01/04/23 01/04/23 22:59 06:59 14:59 Intake Total 236 / 560.27 1740 / 2300.27 200 / 200 Output Total 450 / 900 400 / 400 Balance -214 / -339.73 1740 / 1400.27 -200 / -200 Weight last 48 hrs Weight 246 lb 11.2 oz Weight 246 lb 9 oz Weight 242 lb Physical Exam Narrative: GENERAL: The patient is alert and oriented times three. Not in any acute distress. Was somewhat in aspiratory distress while I was examining the patient. He seems to have a spasmodic cough HEENT: No significant pallor, icterus or lymphadenopathy.Oral cavity: There are no mucous membrane lesions. NECK: Trachea appears to be central. No masses noted. No JVD or thyromegaly appreciated. RESPIRATORY: Chest is symmetrical. [facility] Jorge expiratory wheezing bilaterally BREASTS: Deferred. HEART: The heart sounds are normal. No S3 or S4. No significant murmurs. No pericardial rub ABDOMEN: No vessel pulsations or distention. No tenderness. No organomegaly appreciated. Bowel sounds are normally heard. : Deferred. RECTAL: Deferred. LYMPHATIC: No lymphadenopathy noted in the neck. EXTREMITIES: No edema or cyanosis. No clubbing. MUSCULOSKELETAL: No acute joint deformities or swelling SKIN: There are no significant rashes or ecchymosis NEUROPSYCHIATRIC: No focal motor deficits. Data 01/03/23 03:47 01/03/23 03:47 Other Labs: Laboratory Last Values WBC 8.7 10^3/uL (4.0-10.0) 01/03/23 03:47 RBC 4.09 10^6/uL (4.1-5.3) L 01/03/23 03:47 Hgb 11.8 g/dL (11.7-16.6) 01/03/23 03:47 Hct 37.6 % (42.0-52.0) L 01/03/23 03:47 MCV 91.9 fl (80-94) 01/03/23 03:47 MCH 28.9 pg (28.0-34.0) 01/03/23 03:47 MCHC 31.4 g/dL (30.0-36.0) 01/03/23 03:47 RDW 13.1 % (12.1-15.1) 01/03/23 03:47 Plt Count 199 10^3/cmm (130-400) 01/03/23 03:47 MPV 10.3 fL (7.4-10.4) 01/03/23 03:47 Neut % (Auto) 83.5 % 01/03/23 03:47 Lymph % (Auto) 8.4 % 01/03/23 03:47 Jay % (Auto) 7.5 % 01/03/23 03:47 Eos % (Auto) 0.0 % 01/03/23 03:47 Baso % (Auto) 0.0 % 01/03/23 03:47 Neut # (Auto) 7.28 10^3/uL (1.8-7.7) 01/03/23 03:47 Lymph # (Auto) 0.7 10^3/uL (0.8-4.8) L 01/03/23 03:47 Jay # (Auto) 0.7 10^3/uL (0.2-0.9) 01/03/23 03:47 Eos # (Auto) 0.0 10^3/uL (0.0-0.8) 01/03/23 03:47 Baso # (Auto) 0.0 10^3/uL (0.0-0.1) 01/03/23 03:47 Nucleated RBC % (auto) 0 % 01/03/23 03:47 Nucleated RBCs # 0.0 /100WBC 01/03/23 03:47 PT 13.30 SECONDS (12.1-14.9) 01/03/23 03:47 INR 0.98 (0.8-1.2) 01/03/23 03:47 APTT 62.1 SECONDS (23.9-36.7) H 01/03/23 10:12 Sodium 135 mmol/L (136-145) L 01/03/23 03:47 Potassium 4.3 mmol/L (3.5-5.1) 01/03/23 03:47 Chloride 99 mmol/L (98-107) 01/03/23 03:47 Carbon Dioxide 28 mmol/L (22-29) 01/03/23 03:47 Anion Gap 12.3 (5-19) 01/03/23 03:47 BUN 19 mg/dL (8-23) 01/03/23 03:47 Creatinine 0.7 mg/dL (0.7-1.2) 01/03/23 03:47 GFR Calculation 113.9 mL/min (90-130) 01/03/23 03:47 Glucose 129 mg/dL (65-115) H 01/03/23 03:47 Estimat Average Glucose 100 01/03/23 03:47 Hemoglobin A1c 5.1 % (4.0-6.0) 01/03/23 03:47 Calculated Osmolality 284 mOsm/kg (285-295) L 01/03/23 03:47 Calcium 8.4 mg/dL (8.5-10.5) L 01/03/23 03:47 Phosphorus 2.6 mg/dL (2.5-4.5) 01/03/23 03:47 Magnesium 2.0 mg/dL (1.7-2.3) 01/03/23 03:47 Total Bilirubin 0.2 mg/dL (0.15-1.2) 01/02/23 14:30 AST 16 U/L (0-40) 01/02/23 14:30 ALT 14 U/L (0-41) 01/02/23 14:30 Alkaline Phosphatase 65 U/L (40-130) 01/02/23 14:30 Troponin T Baseline 7 ng/L (0-15) 01/02/23 14:30 Troponin T 120 Minute 6.00 ng/L (0-15) 01/02/23 16:09 Delta Troponin T -1 ABS# (0-10) L 01/02/23 16:09 Troponin T Hi Sens 6Hr 6.00 ng/L (0-15) 01/02/23 20:28 Troponin T Hi Sens 6Hr Delta -1 ng/L (0-12) L 01/02/23 20:28 NT-Pro-B Natriuret Pep 241 pg/mL (0-125) H 01/02/23 14:30 Total Protein 6.9 g/dL (6.6-8.7) 01/02/23 14:30 Albumin 3.6 g/dL (3.5-5.2) 01/02/23 14:30 Globulin 3.3 g/dL (1.3-4.6) 01/02/23 14:30 Triglycerides 50 mg/dL (0-150) 01/03/23 03:47 Cholesterol 199 mg/dL (0-200) 01/03/23 03:47 LDL Cholesterol, Calc 133 mg/dL (50-129) H 01/03/23 03:47 HDL Cholesterol 56 mg/dL (60-100) L 01/03/23 03:47 LDL/HDL Ratio 2.38 RATIO (0.00-3.22) 01/03/23 03:47 Cholesterol/HDL Ratio 3.55 mg/dL (1.0-5.00) 01/03/23 03:47 A&P Assessment and plan (1) Unstable angina pectoris: Currently chest pain-free. Moderate coronary disease by angiogram yesterday. We will continue on the current treatment. (2) Abnormal cardiovascular stress test: Patient has an abnormal perfusion scan, suggestive of ischemia in the distribution of the right coronary artery. For further evaluation, a cardiac catheterization would be appropriate. (3) Recurrent syncope: Patient is somewhat vague about this symptom. There is no witnessed syncopal episode so far. Patient may have a vasovagal syncope. This may further need to be evaluated with an event monitor. (4) Asthma-COPD overlap syndrome: Continue the current management as it is. Seems to have intermittent respiratory distress. Management as per the primary attending. Plan Since the cardiac cath seems to be stable, may not require any other specific intervention at this point. Disposition as per the primary Attestations Medical Necessity Statement*: Deferred to the primary Coding Level of Care Code 32694 Diagnoses Unstable angina pectoris I20.0 Abnormal cardiovascular stress test R94.39 Recurrent syncope R55 Asthma-COPD overlap syndrome J44.9
--- NOTE | 2023-01-04 14:03 | PC.NURSE ---
Patient received verbal instruction and education packet, and verbalized understanding. Patient left with all personal belongings with family members via wheel chair.
== END 2023-01-04 14:05 | disposition home or self-care (01) | DRG 287 ==
LOC: ER 15:47 → CSU 16:11
PROVIDERS: Internal Medicine; Admitting Provider Internal Medicine Cardiovascular Disease; Emergency Provider Family Medicine; PCP Family Medicine; Visit Provider Hospitalist
PROC: B2111ZZ Fluoroscopy of Multiple Coronary Arteries using Low Osmolar Contrast (ICD-10-PCS; principal; 2023-01-03 11:00)
DX: I25.110 Atherosclerotic heart disease of native coronary artery with unstable angina pectoris (principal); J82.83 Eosinophilic asthma; R94.39 Abnormal result of other cardiovascular function study; R55 Syncope and collapse; J84.10 Pulmonary fibrosis, unspecified; J43.9 Emphysema, unspecified; R25.1 Tremor, unspecified; E78.5 Hyperlipidemia, unspecified; R41.89 Other symptoms and signs involving cognitive functions and awareness; M79.605 Pain in left leg; M79.89 Other specified soft tissue disorders; Z86.718 Personal history of other venous thrombosis and embolism; Z99.81 Dependence on supplemental oxygen; Z87.891 Personal history of nicotine dependence
CPT/HCPCS: 36415; 71045; 80048; 80053; 80061; 83036; 83735; 83880; 84100; 84484; 85025; 85610; 85730; 93005; 93306; 93458; 93571; 93971; 94640; 96365; 96366; 96367; 96375; 96376; 99152; 99153; 99285; C1769; C1887; C1894; G0378; J1644; J2250; J3010; J3490; J7030; J7626; Q0163; Q9967

== ENCOUNTER → 2023-01-22 12:12 | Outpatient (BNVA) | payer MEDICARE, MEDICAID, SELFPAY | PROVIDERS: PCP Family Medicine; Visit Provider Internal Medicine Pulmonary Disease | DX: J44.9 Chronic obstructive pulmonary disease, unspecified (principal); J84.10 Pulmonary fibrosis, unspecified; J82.83 Eosinophilic asthma; J45.50 Severe persistent asthma, uncomplicated; Z79.52 Long term (current) use of systemic steroids; K21.9 Gastro-esophageal reflux disease without esophagitis; G47.19 Other hypersomnia; K44.9 Diaphragmatic hernia without obstruction or gangrene; Z99.81 Dependence on supplemental oxygen; Z87.891 Personal history of nicotine dependence; Z77.22 Contact with and (suspected) exposure to environmental tobacco smoke (acute) (chronic) | CPT/HCPCS: 99214 ==

== ENCOUNTER 2023-02-05 12:40 | Oncology outpatient (recurring) (ONCR) | payer MEDICARE, MEDICAID, SELFPAY ==
[2023-02-05] MEDS: FASENRA 1 EACH SUBCUT (16:19)
== END 2023-02-25 23:59 | disposition home or self-care (01) ==
PROVIDERS: PCP Family Medicine; Visit Provider Specialist
DX: J44.9 Chronic obstructive pulmonary disease, unspecified (principal); Z13.6 Encounter for screening for cardiovascular disorders; E78.2 Mixed hyperlipidemia
CPT/HCPCS: 80053; 96402; 99204

== ENCOUNTER 2023-03-11 08:57 | Emergency (ER) | payer MEDICARE, MEDICAID, SELFPAY ==
[2023-03-11 08:58] VITALS: BMI 39.4
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
[2023-03-11 09:01] VITALS: BP 134/101; PULSE 75; RESP 22; TEMP 36.7; O2SAT 97
[2023-03-11] MEDS: ketorolac 30 mg/mL INJ IVP (09:17)
[2023-03-11] MEDS: morphine 4 mg/mL SDV 1 mL IVP (09:17)
[2023-03-11] MEDS: dexamethasone 10 mg/mL INJ IVP (09:17)
[2023-03-11 09:42] VITALS: BP 149/68; PULSE 66; RESP 17; O2SAT 98
[2023-03-11 11:02] VITALS: BP 105/81; PULSE 60; RESP 16; O2SAT 97
[2023-03-11 12:27] VITALS: BP 105/81; PULSE 64; RESP 14; O2SAT 98
== END 2023-03-11 12:28 | disposition home or self-care (01) ==
PROVIDERS: Emergency Provider Family Medicine; PCP Family Medicine
DX: S39.012A Strain of muscle, fascia and tendon of lower back, initial encounter (principal); X58.XXXA Exposure to other specified factors, initial encounter
CPT/HCPCS: 96374; 96375; 99285; J1100; J1885; J2270

== ENCOUNTER → 2023-03-27 08:58 | Outpatient (BNVA) | payer MEDICARE, MEDICAID, SELFPAY | PROVIDERS: PCP Family Medicine; Visit Provider Internal Medicine Pulmonary Disease | DX: J47.9 Bronchiectasis, uncomplicated (principal); F51.3 Sleepwalking [somnambulism]; J82.83 Eosinophilic asthma; J45.50 Severe persistent asthma, uncomplicated; Z79.52 Long term (current) use of systemic steroids; K21.9 Gastro-esophageal reflux disease without esophagitis; G47.19 Other hypersomnia; K44.9 Diaphragmatic hernia without obstruction or gangrene; Z87.891 Personal history of nicotine dependence; Z77.22 Contact with and (suspected) exposure to environmental tobacco smoke (acute) (chronic) | CPT/HCPCS: 99214 ==

== ENCOUNTER 2023-04-07 10:48 | Outpatient (CLI) | payer MEDICARE, MEDICAID, SELFPAY ==
[2023-04-07 11:10] VITALS: PULSE 62; RESP 18; O2SAT 92
[2023-04-07] MEDS: albuterol 2.5 mg/3 mL Neb INHALATION (11:10)
[2023-04-07 11:15] VITALS: PULSE 65
== END 2023-04-07 10:49 | disposition home or self-care (01) ==
PROVIDERS: PCP Family Medicine; Visit Provider Internal Medicine Pulmonary Disease
DX: J44.9 Chronic obstructive pulmonary disease, unspecified (principal)
CPT/HCPCS: 94060; 94618; 94726; 94729; J7613

== ENCOUNTER → 2023-04-13 09:45 | Outpatient (BNVA) | payer MEDICARE, MEDICAID, SELFPAY | PROVIDERS: PCP Family Medicine; Visit Provider Anesthesiology Pain Medicine | DX: G89.29 Other chronic pain (principal); M54.2 Cervicalgia; M51.36 Other intervertebral disc degeneration, lumbar region; M47.816 Spondylosis without myelopathy or radiculopathy, lumbar region; Z87.81 Personal history of (healed) traumatic fracture; J45.50 Severe persistent asthma, uncomplicated; M85.88 Other specified disorders of bone density and structure, other site | CPT/HCPCS: 99214 ==

== ENCOUNTER 2023-04-17 07:00 | Emergency (ER) | payer MEDICARE, MEDICAID, SELFPAY ==
[2023-04-17] VITALS (8 sets, daily range): BP systolic 117–158; BP diastolic 67–77; PULSE 73–86; RESP 16–20; TEMP 36.7; O2SAT 92–95
--- NOTE | 2023-04-17 07:08 | ED_ITS ---
HPI - SOB/Dyspnea General: Chief Complaint: Shortness of Breath/Dyspnea Stated Complaint: difficulty breathing/ back pain Time Seen by Provider: 04/17/23 07:07 History of Present Illness: HPI Narrative: Mr. Nunn is a 63-year-old gentleman with significant history of severe persistent asthma and asthma COPD overlap syndrome, chronic hypoxic respiratory failure at 5 L at baseline, CAD presented the emergency department for shortness of breath and shoulder pain. He notes progressive gradual onset of symptoms started yesterday with increased dyspnea. He tried home medications without significant improvement. Also has developed left shoulder blade and upper arm pain which is atypical from his typical chronic back pain. Intensity symptoms moderate to severe. He received prehospital terbutaline, albuterol, Solu-Medrol and feels like his breathing has been improving since administration. No other specific changes in health, exacerbating, or alleviating factors identified. Onset (ago): day(s) Severity: severe Relieving factors: oxygen, bronchodilators and medication Associated symptoms: Reports no associated symptoms Review of Systems General: Reports: 10 or more systems reviewed and unremarkable except in HPI and below PFSH ED PFSH: Medical History Asthma-COPD overlap syndrome Chronic neck pain Cognitive impairment Degenerative lumbar disc Eosinophilic asthma GERD (gastroesophageal reflux disease) History of compression fracture of spine Left leg DVT 07/2022 Pulmonary emphysema with fibrosis of lung Tremor Surgical History History of cataract extraction bilateral History of tonsillectomy Hx of appendectomy Family History Other Dementia Stroke Denies family history of Diabetes CAD (coronary artery disease) Clotting disorder Hyperlipidemia Psychiatric illness Chronic kidney disease (CKD) Suicide Anesthesia complication Bleeding disorder Family history of premature coronary artery disease Lung disease Cancer Hypertension Social History Smoking and tobacco status: former smoker Quit status (tobacco): has quit using tobacco Year quit tobacco: 2017 Former quit date comment: 1pack per month x 2 years Second hand smoke exposure: No Alcohol intake: never Substance/Drug Use: never Physical Exam Const: COMMON NORMALS: alert GENERAL APPEARANCE: cooperative and well developed HENMT: COMMON NORMALS: normocephalic and atraumatic HEAD & SCALP: normocephalic and atraumatic Eye: COMMON NORMALS: conjunctivae normal CONJUNCTIVA: Yes conjunctivae normal SCLERA: sclerae normal Neck/C-Spine: COMMON NORMALS: supple GENERAL: Yes trachea midline Resp: COMMON NORMALS: normal respiratory effort EFFORT & INSPECTION: Yes able to speak in complete sentences AUSCULTATION: diminished lung sounds Cardio: COMMON NORMALS: regular rate and regular rhythm RATE: regular rate RHYTHM: regular rhythm GI: COMMON NORMALS: Soft to palpation PALPATION: Yes Soft to palpation and No Tenderness to palpation present (GI) Extremity: GENERAL: Yes normal exam except as noted and No edema Neuro: COMMON NORMALS: moves all extremities SENSORIUM/ORIENTATION: Yes alert and No Orientation impaired Psych: COMMON NORMALS: mental status grossly normal and Normal thought process present THOUGHT PROCESS: Normal thought process present Course Vital Signs: Vital signs: Vital Signs Temperature 98.0 F 04/17/23 07:01 Pulse Rate 74 04/17/23 10:25 Respiratory Rate 16 04/17/23 09:04 Blood Pressure 128/73 04/17/23 10:25 Pulse Oximetry 93 04/17/23 10:25 Oxygen Delivery Me thod Nasal Cannula 04/17/23 09:04 Oxygen Flow Rate 4.5 04/17/23 09:04 MDM - SOB/Dyspnea Medical Decision Making 63-year-old gentleman presenting with pain and shortness of breath. Some improvement with EMS administered treatment. Baseline 5 L oxygen requirement. Nontoxic. No evidence of impending airway failure. EKG demonstrates sinus rhythm with first-degree AV block, left axis deviation, no STEMI. Labs with no leukocytosis, normal hemoglobin and platelet count. Metabolic panel without significant derangement. BNP is minimally elevated. Negative troponin with greater than 6 hours of symptoms. Negative COVID. Chest x-ray with no lobar consolidation or pneumothorax. 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 Patient feels improved with Toradol, Tylenol, morphine, and repeat RT treatment. He is back to baseline oxygen and work of breathing appears significantly improved. Most likely COPD exacerbation. The results of ED evaluation were discussed with the patient including prescriptions and/or symptomatic cares (if applicable) including appropriate and responsible use, followup plan, and return precautions. The patient verbalized understanding and felt safe for discharge. Medical Records I reviewed the patient's medical records. Lab Data I reviewed the patient's lab results. 04/17/23 08:00 04/17/23 08:00 Labs/Radiology: Radiology Impressions Chest X-Ray 04/17/23 07:11 IMPRESSION: 1. No acute cardiopulmonary finding. Laboratory Results WBC 7.7 10^3/uL (4.0-10.0) 04/17/23 08:00 RBC 4.35 10^6/uL (4.1-5.3) 04/17/23 08:00 Hgb 12.5 g/dL (11.7-16.6) 04/17/23 08:00 Hct 41.2 % (42.0-52.0) L 04/17/23 08:00 MCV 94.7 fl (80-94) H 04/17/23 08:00 MCH 28.7 pg (28.0-34.0) 04/17/23 08:00 MCHC 30.3 g/dL (30.0-36.0) 04/17/23 08:00 RDW 13.6 % (12.1-15.1) 04/17/23 08:00 Plt Count 194 10^3/cmm (130-400) 04/17/23 08:00 MPV 10.1 fL (7.4-10.4) 04/17/23 08:00 Neut % (Auto) 76.3 % 04/17/23 08:00 Lymph % (Auto) 15.7 % 04/17/23 08:00 [place] % (Auto) 7.1 % 04/17/23 08:00 Eos % (Auto) 0.0 % 04/17/23 08:00 Baso % (Auto) 0.1 % 04/17/23 08:00 Neut # (Auto) 5.88 10^3/uL (1.8-7.7) 04/17/23 08:00 Lymph # (Auto) 1.2 10^3/uL (0.8-4.8) 04/17/23 08:00 [place] # (Auto) 0.6 10^3/uL (0.2-0.9) 04/17/23 08:00 Eos # (Auto) 0.0 10^3/uL (0.0-0.8) 04/17/23 08:00 Baso # (Auto) 0.0 10^3/uL (0.0-0.1) 04/17/23 08:00 Nucleated RBC % (auto) 0 % 04/17/23 08:00 Nucleated RBCs # 0.0 /100WBC 04/17/23 08:00 Sodium 141 mmol/L (136-145) 04/17/23 08:00 Potassium 4.2 mmol/L (3.5-5.1) 04/17/23 08:00 Chloride 103 mmol/L (98-107) 04/17/23 08:00 Carbon Dioxide 30 mmol/L (22-29) H 04/17/23 08:00 Anion Gap 12.2 (5-19) 04/17/23 08:00 BUN 21 mg/dL (8-23) 04/17/23 08:00 Creatinine 0.8 mg/dL (0.7-1.2) 04/17/23 08:00 GFR Calculation 97.3 mL/min (90-130) 04/17/23 08:00 Glucose 150 mg/dL (65-115) H 04/17/23 08:00 Calculated Osmolality 298 mOsm/kg (285-295) H 04/17/23 08:00 Lactic Acid 2.1 mmol/L (0.5-2.2) 04/17/23 08:00 Calcium 8.4 mg/dL (8.5-10.5) L 04/17/23 08:00 Total Bilirubin 0.2 mg/dL (0.15-1.2) 04/17/23 08:00 AST 21 U/L (0-40) 04/17/23 08:00 ALT 20 U/L (0-41) 04/17/23 08:00 Alkaline Phosphatase 79 U/L (40-130) 04/17/23 08:00 Troponin T Baseline 8 ng/L (0-15) 04/17/23 08:00 NT-Pro-B Natriuret Pep 411 pg/mL (0-125) H 04/17/23 08:00 Total Protein 6.4 g/dL (6.6-8.7) L 04/17/23 08:00 Albumin 3.8 g/dL (3.5-5.2) 04/17/23 08:00 Globulin 2.6 g/dL (1.3-4.6) 04/17/23 08:00 SARS-CoV-2 Ag (Rapid) negative (Negative) 04/17/23 07:31 Discharge Plan Discharge Patient Disposition: Home Clinical Impression: Acute exacerbation of chronic obstructive airways disease, Acute exacerbation of chronic low back pain, Acute shoulder pain Condition: Stable Prescriptions: New levalbuterol tartrate 45 mcg/actuation HFA aerosol inhaler 2 inh inhalation Q4H PRN (Reason: shortness of breath or wheezing) Qty: 15 2RF oxycodone 5 mg tablet 5 mg PO Q4H PRN (Reason: pain) Qty: 10 0RF No Action montelukast [Singulair] 10 mg tablet 10 mg PO DAILY Qty: 90 3RF (DME) wheelchair See Rx Instructions .Route .MEDSUPPLY Qty: 1 0RF Rx Instructions: As directed (DME) hsopital bed See Rx Instructions .Route .MEDSUPPLY Qty: 1 0RF Rx Instructions: As directed citalopram 40 mg tablet 40 mg PO DAILY Qty: 90 0RF Fasenra Pen 30 mg/mL auto-injector 30 mg SUBCUT Q28D Qty: 1 3RF Rx Instructions: 30 mg injection once every 4 weeks, for first 3 doses.Then Once every 8 weeks aspirin 81 mg tablet,delayed release (DR/EC) 81 mg PO DAILY 30 Days Qty: 30 2RF levalbuterol tartrate 45 mcg/actuation HFA aerosol inhaler 2 inh inhalation Q6H Qty: 15 5RF primidone 50 mg tablet 100 mg PO BEDTIME nitroglycerin 0.4 mg tablet, sublingual 0.4 mg sublingual Q5M PRN (Reason: chest pain) 30 Days Qty: 30 3RF Rx Instructions: until response; do not exceed 3 doses per episode budesonide 0.5 mg/2 mL suspension for nebulization 0.25 mg inhalation BID Qty: 60 3RF formoterol fumarate 20 mcg/2 mL solution for nebulization 2 ml inhalation BID Qty: 120 3RF olanzapine [Zyprexa] 2.5 mg tablet 2.5 mg PO DAILY Qty: 90 1RF isosorbide mononitrate 30 mg tablet extended release 24 hr 30 mg PO DAILY 30 Days Qty: 30 0RF atorvastatin 20 mg tablet 20 mg PO DAILY Qty: 90 0RF albuterol sulfate [Ventolin HFA] 90 mcg/actuation HFA aerosol inhaler See Rx Instructions .ROUTE .COMPLEX Qty: 18 0RF Dose Instruction: INHALE 2 PUFFS BY MOUTH EVERY 6 HOURS NEEDED FOR SHORTNESS OF BREATH FOR WHEEZING Rx Instructions: INHALE 2 PUFFS BY MOUTH EVERY 6 HOURS NEEDED FOR SHORTNESS OF BREATH FOR WHEEZING Breztri Aerosphere 160-9-4.8 mcg/actuation HFA aerosol inhaler See Rx Instructions .ROUTE .COMPLEX Qty: 11 0RF Dose Instruction: INHALE 2 PUFFS TWICE DAILY Rx Instructions: INHALE 2 PUFFS TWICE DAILY metoprolol tartrate 25 mg tablet See Rx Instructions .ROUTE .COMPLEX Qty: 60 0RF Dose Instruction: TAKE 1 TABLET BY MOUTH TWICE DAILY AT 9AM AND 9PM Rx Instructions: TAKE 1 TABLET BY MOUTH TWICE DAILY AT 9AM AND 9PM pantoprazole 40 mg tablet,delayed release (DR/EC) 40 mg PO DAILY gabapentin 300 mg capsule 300 mg PO Q8H Discharge Orders: Discharge ED (Routine); Ordered 04/17/23 Ordered By: Ta Tran Referrals: Shweta Márquez DO [Primary Care Provider] - Discharge Diet: Usual diet Discharge Activity: Resume usual activity Patient Instructions: Asthma Exacerbation - Adult, COPD (Chronic Obstructive Pulmonary Disease) (ED), Chronic Back Pain (DC), Shoulder Pain (ED), Opioid Safety Activity Restrictions/Additional Instructions: Thank you for visiting the emergency department. You were seen and evaluated for shortness of breath and shoulder/back pain. The exact cause of your symptoms is unclear though likely related to exacerbation of underlying lung disease. We are pleased that you had improvement with treatment. You may use [id number] medications such as acetaminophen and ibuprofen for pain however please do not exceed the daily recommended dosage as listed on the packaging and please keep in mind that many namebrand medications contain the same active ingredients. Please avoid these medications if previously instructed to do so by another physician due to other underlying medical condition. I will prescribe steroids and antibiotics. Please also use your lavalbuterol metered-dose inhaler 2 puffs every 4 hours for 24 hours followed by 2 puffs every 6 hours for 24 hours followed by 2 puffs every 8 hours for 24 hours and then return to the normal schedule. Follow-up with your primary care provider and outbound sales representative. Return for uncontrolled symptoms or anything else that you are concerned about and feel needs emergency department evaluation. Coding Level of Care Code ED Merchandising Director for Janet Nj
--- NOTE | 2023-04-17 07:11 | ECG_ITS ---
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 Measurements Intervals [place] Rate: 79 P: 79 TX: 234 QRS: -61 QRSD: 90 T: 75 QT: 367 QTc: 423 Interpretive Statements SINUS RHYTHM WITH FIRST DEGREE AV BLOCK LEFT AXIS DEVIATION [QRS AXIS < -30] Compared to ECG 01/02/2023 20:20:36 No significant changes Electronically Signed On 04-17-2023 11:42:03 CDT by Arturo Walsh M.D. [id number]
--- NOTE | 2023-04-17 07:11 | XR_ITS ---
WS: [id number] Exam: XR chest 1V portable [id number] Date/Time of Exam: 04/17/2023 7:11 AM Reason For Exam: sob Comparison 01/02/2023. The lungs are fully expanded and clear. Normal cardiomediastinal silhouette. Chronic plaque atelectas is in the right lower lung zone. No pleural effusions. Regional bony elements are unremarkable. Scatt ered calcified granulomas. XR/XR chest 1V portable [id number] IMPRESSION: 1. No acute cardiopulmonary finding.
[2023-04-17] MEDS: acetaminophen 500 mg Tablet 1000 MG PO (07:20)
[2023-04-17] MEDS: ketorolac 30 mg/mL INJ 15 MG IVP (07:20)
[2023-04-17] MEDS: ipratropium-albuterol 3 mL Neb INHALATION (07:26)
[2023-04-17 07:59] LABS: SARS Covid-2 Antigen negative (Negative)
[2023-04-17 08:12] LABS: Basophils % 0.1 %; Hematocrit 41.2 % (42.0-52.0); Hemoglobin 12.5 g/dL (11.7-16.6); Lymphocytes # 1.2 10^3/uL (0.8-4.8); Lymphocytes % 15.7 %; Mean Corpuscular HGB Conc 30.3 g/dL (30.0-36.0); Mean Corpuscular Hemoglobin 28.7 pg (28.0-34.0); Mean Corpuscular Volume 94.7 fl (80-94); Mean Platelet Volume 10.1 fL (7.4-10.4); Monocytes # 0.6 10^3/uL (0.2-0.9); Monocytes % 7.1 %; Neutrophils # 5.88 10^3/uL (1.8-7.7); Neutrophils % 76.3 %; Nucleated Red Blood Cells % 0 %; Platelet Count 194 10^3/cmm (130-400); Red Blood Count 4.35 10^6/uL (4.1-5.3); Red Cell Distribution Width 13.6 % (12.1-15.1); White Blood Count 7.7 10^3/uL (4.0-10.0)
[2023-04-17] MEDS: morphine 4 mg/mL SDV 1 mL IVP (08:19)
[2023-04-17 08:24] LABS: Lactic Sepsis W/Reflex 2.1 mmol/L (0.5-2.2)
[2023-04-17 08:32] LABS: Troponin(5th) Baseline 8 ng/L (0-15)
[2023-04-17 08:40] LABS: Alanine Aminotransferase 20 U/L (0-41); Albumin Level 3.8 g/dL (3.5-5.2); Alkaline Phosphatase 79 U/L (40-130); Blood Urea Nitrogen 21 mg/dL (8-23); Calcium 8.4 mg/dL (8.5-10.5); Carbon Dioxide 30 mmol/L (22-29); Chloride 103 mmol/L (98-107); Globulin 2.6 g/dL (1.3-4.6); Glomerular Filtration Rate 97.3 mL/min (90-130); Glucose 150 mg/dL (65-115); NT Pro B Type Natriuretic Pept 411 pg/mL (0-125); Osmolality Calculated 298 mOsm/kg (285-295); Sodium 141 mmol/L (136-145); Total Bilirubin 0.2 mg/dL (0.15-1.2); Total Protein 6.4 g/dL (6.6-8.7)
[2023-04-17 08:45] LABS: Anion Gap 12.2 (5-19); Potassium 4.2 mmol/L (3.5-5.1)
[2023-04-17 08:46] LABS: Aspartate Amino Transferase 21 U/L (0-40)
[2023-04-17] MEDS: albuterol 2.5 mg/3 mL Neb INHALATION (09:05)
--- NOTE | 2023-04-17 09:11 | ECG_ITS ---
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 Measurements Intervals [place] Rate: 74 P: 79 ME: 242 QRS: -37 QRSD: 86 T: 56 QT: 376 QTc: 419 Interpretive Statements SINUS RHYTHM WITH FIRST DEGREE AV BLOCK LEFT AXIS DEVIATION [QRS AXIS < -30] Compared to ECG 04/17/2023 07:13:49 No significant changes Electronically Signed On 04-17-2023 11:44:17 CDT by Arturo Walsh M.D. [id number]
[2023-04-17 09:55] LABS: Reflex Lactate Order REFLEX LACTIC ORDERD
== END 2023-04-17 10:26 | disposition home or self-care (01) ==
PROVIDERS: Emergency Provider Emergency Medicine; PCP Family Medicine
DX: J44.1 Chronic obstructive pulmonary disease with (acute) exacerbation (principal); M54.50 Low back pain, unspecified; G89.29 Other chronic pain; M25.512 Pain in left shoulder; I44.0 Atrioventricular block, first degree; R94.31 Abnormal electrocardiogram [ECG] [EKG]; Z99.81 Dependence on supplemental oxygen; Z87.891 Personal history of nicotine dependence
CPT/HCPCS: 71045; 80053; 83605; 83880; 84484; 85025; 87426; 93005; 94640; 96374; 96375; 99285; J1885; J2270; J7613

== ENCOUNTER 2023-04-20 20:00 | Outpatient (CLI) | payer MEDICARE, MEDICAID, SELFPAY | END 2023-04-20 20:01 | disposition home or self-care (01) | LOC: SLEEP 04-21 05:15 | PROVIDERS: PCP Family Medicine; Visit Provider Internal Medicine Pulmonary Disease | DX: G47.33 Obstructive sleep apnea (adult) (pediatric) (principal); F51.3 Sleepwalking [somnambulism]; G47.50 Parasomnia, unspecified; G47.19 Other hypersomnia | CPT/HCPCS: 95810 ==

== ENCOUNTER → 2023-04-30 14:16 | Outpatient (BNVA) | payer MEDICARE, MEDICAID, SELFPAY | PROVIDERS: PCP Family Medicine; Visit Provider Anesthesiology Pain Medicine | DX: M54.16 Radiculopathy, lumbar region (principal); M47.816 Spondylosis without myelopathy or radiculopathy, lumbar region; G89.29 Other chronic pain; M51.36 Other intervertebral disc degeneration, lumbar region | CPT/HCPCS: 64483; 64484; J1100; J3490 ==

== ENCOUNTER 2023-05-13 19:07 | Emergency (ER) | payer MEDICARE, MEDICAID, SELFPAY ==
[2023-05-13 19:09] VITALS: BP 146/83; PULSE 78; RESP 24; TEMP 36.9; O2SAT 92; BMI 41.0
--- NOTE | 2023-05-13 19:18 | XRR_ITS ---
PROCEDURE INFORMATION: Exam: XR Chest Exam date and time: 05/13/2023 7:23 PM Age: 63 years old Clinical indication: Dyspnea TECHNIQUE: Imaging protocol: Radiologic exam of the chest. Views: 1 view. COMPARISON: CR XR chest 1V portable [id number] 04/17/2023 7:23 AM FINDINGS: Lungs: Lung volumes are decreased but stable likely in part due to body habitus. Scattered platelike atelectasis right mid-lower lung zone, unchanged. Interval development of indistinct small opacities left lung base concerning for small infiltrate. Pleural spaces: Unremarkable. No pleural effusion. No pneumothorax. Heart/Mediastinum: Heart appears borderline enlarged on this portable chest. Bones/joints: Unremarkable for age. XR/XR chest 1V portable [id number] IMPRESSION: 1. Chronically decreased lung volumes with stable platelike atelectasis right lung field. 2. Questionable small infiltrate left lower lobe for which continued follow-up advised.
--- NOTE | 2023-05-13 19:18 | ECG_ITS ---
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 Measurements Intervals [place] Rate: 78 P: 50 CA: 276 QRS: -1 QRSD: 83 T: 48 QT: 379 QTc: 432 Interpretive Statements SINUS RHYTHM WITH FIRST DEGREE AV BLOCK Compared to ECG 04/17/2023 09:08:05 Left-axis deviation no longer present Electronically Signed On 05-14-2023 7:58:33 CDT by Kedar Coyle M.D. [id number]
--- NOTE | 2023-05-13 19:18 | ED_ITS ---
HPI - SOB/Dyspnea General: Chief Complaint: Shortness of Breath/Dyspnea Stated Complaint: SOB Time Seen by Provider: 05/13/23 19:13 History of Present Illness: HPI Narrative: Patient presents to the ER with complaints of shortness of breath and increasing lower extremity edema over the last several days. Patient is on 5 L of oxygen per nasal cannula at home at all times for his COPD. Upon patient's arrival he was satting 92% on his 5 L. Breathing 24 times a minute. Patient denies any fever chills nausea vomiting diarrhea etc. Review of Systems General: Reports: 10 or more systems reviewed and unremarkable except in HPI and below PFSH ED PFSH: Medical History Asthma-COPD overlap syndrome Chronic neck pain Cognitive impairment Degenerative lumbar disc Eosinophilic asthma GERD (gastroesophageal reflux disease) History of compression fracture of spine Left leg DVT 07/2022 Pulmonary emphysema with fibrosis of lung Tremor Surgical History History of cataract extraction bilateral History of tonsillectomy Hx of appendectomy Family History Other Dementia Stroke Denies family history of Diabetes CAD (coronary artery disease) Clotting disorder Hyperlipidemia Psychiatric illness Chronic kidney disease (CKD) Suicide Anesthesia complication Bleeding disorder Family history of premature coronary artery disease Lung disease Cancer Hypertension Social History Smoking and tobacco status: former smoker Quit status (tobacco): has quit using tobacco Year quit tobacco: 2017 Former quit date comment: 1pack per month x 2 years Second hand smoke exposure: No Alcohol intake: never Substance/Drug Use: never Physical Exam Const: COMMON NORMALS: no acute distress, patient oriented x3, no limitations, healthy appearing, alert and well nourished HENMT: COMMON NORMALS: normocephalic, atraumatic, hearing grossly normal bilaterally, Normal external nose present and moist oral mucous membranes HEAD & SCALP: normocephalic and atraumatic NOSE: Normal external nose present Eye: COMMON NORMALS: Equal, round and reactive pupils present, EOMs intact leesa aterally, conjunctivae normal and no scleral icterus CONJUNCTIVA: Yes con junctivae normal PUPIL: Yes Equal, round and reactive pupils present Neck/C-Spine: COMMON NORMALS: full ROM, supple, no meningeal signs, no JVD and Thyroid normal THYROID: Thyroid normal Chest: COMMONS NORMALS: normal inspection of the chest and normal palpation of entire chest wall Resp: COMMON NORMALS: normal respiratory effort, No retractions and No use of accessory muscles; negative for clear to auscultation bilaterally (Diffuse wheezing) AUSCULTATION: not clear to auscultation bilaterally (Diffuse wheezing) Cardio: COMMON NORMALS: no JVD, regular rate, regular rhythm, S1 normal heart sound present, S2 normal heart sound present, No gallops present (Cardio), No clicks present (Cardio), No murmurs present (Cardio) and No rub (Cardio) RATE: regular rate RHYTHM: regular rhythm HEART SOUNDS: S1 normal heart so und present and S2 normal heart sound present GI: COMMON NORMALS: Normal to inspection, nondistended, normoactive bowel sounds present, Soft to palpation, non-tender, No hepatosplenomegaly present and no masses PALPATION: Yes Soft to palpation and Yes No hepatosplenomegaly present : COMMON NORMALS: Yes no CVA tenderness BLADDER/KIDNEY EXAM: Yes no CVA tenderness Back/Pelvis: COMMON NORMALS: no CVA tenderness Neuro: COMMON NORMALS: patient oriented x3 SENSORIUM/ORIENTATION: Yes alert MENINGEAL SIGNS: Yes no meningeal signs Course Vital Signs: Vital signs: Vital Signs Temperature 98.5 F 05/13/23 19:09 Pulse Rate 69 05/13/23 20:30 Respiratory Rate 17 05/13/23 20:30 Blood Pressure 123/80 05/13/23 20:30 Pulse Oximetry 96 05/13/23 20:30 Oxygen Delivery Me thod Nasal Cannula 05/13/23 20:30 Oxygen Flow Rate 5 05/13/23 20:30 MDM - SOB/Dyspnea Medical Decision Making Patient presents to the ER with worsening shortness of breath and lower extremity edema. Physical exam was performed lab work was obtained showed questionable small infiltrate left lower lobe and very mildly elevated BNP at 770. Patient was given 1 DuoNeb breathing treatment, 40 mg of IV Lasix, 3.375 g of Zosyn and 125 mg Solu-Medrol. Wheezing did improve and patient is breathing better. Patient will be discharged home on steroids and antibiotics and is to follow-up with his primary care physician within the next 7 to 10 days Differential Diagnosis Likely acute exacerbation of chronic obstructive airways disease and community acquired pneumonia; Unlikely asthma with exacerbation or pulmonary embolism Medical Records I reviewed the patient's medical records. Lab Data I reviewed the patient's lab results. 05/13/23 19:33 05/13/23 19:33 Labs/Radiology: Radiology Impressions Chest X-Ray 05/13/23 19:18 IMPRESSION: 1. Chronically decreased lung volumes with stable platelike atelectasis right lung field. 2. Questionable small infiltrate left lower lobe for which continued follow-up advised. Laboratory Results WBC 5.0 10^3/uL (4.0-10.0) 05/13/23 19: RBC 4.00 10^6/uL (4.1-5.3) L 05/13/23 19: Hgb 11.7 g/dL (11.7-16.6) 05/13/23 19: Hct 37.6 % (42.0-52.0) L 05/13/23: MCV 94.0 fl (80-94) 05/13/23 19: MCH 29.3 pg (28.0-34.0) 05/13/23 19: MCHC 31.1 g/dL (30.0-36.0) 05/13/23 19: RDW 13.4 % (12.1-15.1) 05/13/23 19: Plt Count 172 10^3/cmm (130-400) 05/13/23 19: MPV 9.6 fL (7.4-10.4) 05/13/23 19:33 Neut % (Auto) 50.9 % 05/13/23 19: Lymph % (Auto) 30.6 % 05/13/23 19:33 [place] % (Auto) 17.9 % 05/13/23 19: Eos % (Auto) 0.0 % 05/13/23 19: Baso % (Auto) 0.2 % 05/13/23 19: Neut # (Auto) 2.56 10^3/uL (1.8-7.7) 05/13/23 19: Lymph # (Auto) 1.5 10^3/uL (0.8-4.8) 05/13/23 19:33 [place] # (Auto) 0.9 10^3/uL (0.2-0.9) 05/13/23 19:33 Eos # (Auto) 0.0 10^3/uL (0.0-0.8) 05/13/23 19:33 Baso # (Auto) 0.0 10^3/uL (0.0-0.1) 05/13/23 19:33 Nucleated RBC % (auto) 0 % 05/13/23 19:33 Nucleated RBCs # 0.0 /100WBC 05/13/23 19:33 Sodium 141 mmol/L (136-145) 05/13/23 19:33 Potassium 4.1 mmol/L (3.5-5.1) 05/13/23 19:33 Chloride 102 mmol/L (98-107) 05/13/23 19:33 Carbon Dioxide 34 mmol/L (22-29) H 05/13/23 19:33 Anion Gap 9.1 (5-19) 05/13/23 19:33 BUN 16 mg/dL (8-23) 05/13/23 19:33 Creatinine 0.7 mg/dL (0.7-1.2) 05/13/23 19:33 GFR Calculation 113.5 mL/min (90-130) 05/13/23 19:33 Glucose 125 mg/dL (65-115) H 05/13/23 19:33 Calculated Osmolality 295 mOsm/kg (285-295) 05/13/23 19:33 Calcium 8.6 mg/dL (8.5-10.5) 05/13/23 19:33 Magnesium 2.0 mg/dL (1.7-2.3) 05/13/23 19:33 Total Bilirubin 0.2 mg/dL (0.15-1.2) 05/13/23 19:33 AST 22 U/L (0-40) 05/13/23 19:33 ALT 19 U/L (0-41) 05/13/23 19:33 Alkaline Phosphatase 74 U/L (40-130) 05/13/23 19:33 NT-Pro-B Natriuret Pep 770 pg/mL (0-125) H 05/13/23 19:33 Total Protein 6.4 g/dL (6.6-8.7) L 05/13/23 19:33 Albumin 3.5 g/dL (3.5-5.2) 05/13/23 19:33 Globulin 2.9 g/dL (1.3-4.6) 05/13/23 19:33 EKG Data EKG 1: I personally reviewed and interpreted this EKG as follows: EKG Interpretation Date: 05/13/23 EKG interpretation time: 19:15 Prior EKG tracings: not available for review Interpretation: EKG showed ventricular rate 78 bpm, ID interval 276, QRS duration 83, QTc of 412, sinus rhythm with first-degree AV block Discharge Plan Discharge Patient Disposition: Home Clinical Impression: Acute exacerbation of chronic obstructive airways disease Community acquired pneumonia Qualifiers: Laterality: left Lung location: lower lobe of lung Qualified Code(s): J18.9 - Pneumonia, unspecified organism Condition: Stable Prescriptions: New cefdinir 300 mg capsule 300 mg PO BID Qty: 14 0RF prednisone 50 mg tablet 50 mg PO DAILY 5 Days Qty: 5 0RF No Action montelukast [Singulair] 10 mg tablet 10 mg PO DAILY Qty: 90 3RF (DME) wheelchair See Rx Instructions .Route .MEDSUPPLY Qty: 1 0RF Rx Instructions: As directed (DME) hsopital bed See Rx Instructions .Route .MEDSUPPLY Qty: 1 0RF Rx Instructions: As directed aspirin 81 mg tablet,delayed release (DR/EC) 81 mg PO DAILY 30 Days Qty: 30 2RF levalbuterol tartrate 45 mcg/actuation HFA aerosol inhaler 2 inh inhalation Q6H Qty: 15 5RF primidone 50 mg tablet 100 mg PO BEDTIME nitroglycerin 0.4 mg tablet, sublingual 0.4 mg sublingual Q5M PRN (Reason: chest pain) 30 Days Qty: 30 3RF Rx Instructions: until response; do not exceed 3 doses per episode budesonide 0.5 mg/2 mL suspension for nebulization 0.25 mg inhalation BID Qty: 60 3RF formoterol fumarate 20 mcg/2 mL solution for nebulization 2 ml inhalation BID Qty: 120 3RF isosorbide mononitrate 30 mg tablet extended release 24 hr 30 mg PO DAILY 30 Days Qty: 30 0RF atorvastatin 20 mg tablet 20 mg PO DAILY Qty: 90 0RF albuterol sulfate [Ventolin HFA] 90 mcg/actuation HFA aerosol inhaler See Rx Instructions .ROUTE .COMPLEX Qty: 18 0RF Dose Instruction: INHALE 2 PUFFS BY MOUTH EVERY 6 HOURS NEEDED FOR SHORTNESS OF BREATH FOR WHEEZING Rx Instructions: INHALE 2 PUFFS BY MOUTH EVERY 6 HOURS NEEDED FOR SHORTNESS OF BREATH FOR WHEEZING Bretiffanietri Aerosphere 160-9-4.8 mcg/actuation HFA aerosol inhaler See Rx Instructions .ROUTE .COMPLEX Qty: 11 0RF Dose Instruction: INHALE 2 PUFFS TWICE DAILY Rx Instructions: INHALE 2 PUFFS TWICE DAILY citalopram 40 mg tablet See Rx Instructions .ROUTE .COMPLEX Qty: 90 0RF Dose Instruction: Take 1 tablet by mouth once daily Rx Instructions: Take 1 tablet by mouth once daily gabapentin 300 mg capsule See Rx Instructions .ROUTE .COMPLEX Qty: 90 0RF Dose Instruction: TAKE 1 CAPSULE BY MOUTH EVERY 8 HOURS Rx Instructions: TAKE 1 CAPSULE BY MOUTH EVERY 8 HOURS metoprolol tartrate 25 mg tablet See Rx Instructions .ROUTE .COMPLEX Qty: 60 0RF Dose Instruction: TAKE 1 TABLET BY MOUTH TWICE DAILY AT 9AM AND 9PM Rx Instructions: TAKE 1 TABLET BY MOUTH TWICE DAILY AT 9AM AND 9PM Fasenra Pen 30 mg/mL auto-injector 30 mg SUBCUT Q28D Qty: 1 3RF Rx Instructions: 30 mg injection once every 4 weeks, for first 3 doses.Then Once every 8 weeks olanzapine [Zyprexa] 2.5 mg tablet 2.5 mg PO DAILY Qty: 90 1RF pantoprazole 40 mg tablet,delayed release (DR/EC) 40 mg PO DAILY levalbuterol tartrate 45 mcg/actuation HFA aerosol inhaler 2 inh inhalation Q4H PRN (Reason: shortness of breath or wheezing) Qty: 15 2RF oxycodone 5 mg tablet 5 mg PO Q4H PRN (Reason: pain) Qty: 10 0RF Discharge Orders: Discharge ED (Routine); Ordered 05/13/23 Ordered By: Kamar Ca Referrals: Shweta Márquez DO [Primary Care Provider] - Patient Instructions: COPD (Chronic Obstructive Pulmonary Disease) (ED), Pneumonia (ED) Activity Restrictions/Additional Instructions: Please take all your antibiotics and steroids as directed. Please follow-up with your primary care doctor in the next 7 to 10 days as needed. Coding Level of Care Code ED Materials Engineer for Janet Nj
--- NOTE | 2023-05-13 19:38 | PC.NURSE ---
PATIENT HOOKED UP TO CONTINUOUS BEDSIDE CARDIAC MONITORING.
[2023-05-13 19:44] LABS: Basophils % 0.2 %; Hematocrit 37.6 % (42.0-52.0); Hemoglobin 11.7 g/dL (11.7-16.6); Lymphocytes # 1.5 10^3/uL (0.8-4.8); Lymphocytes % 30.6 %; Mean Corpuscular HGB Conc 31.1 g/dL (30.0-36.0); Mean Corpuscular Hemoglobin 29.3 pg (28.0-34.0); Mean Platelet Volume 9.6 fL (7.4-10.4); Monocytes # 0.9 10^3/uL (0.2-0.9); Monocytes % 17.9 %; Neutrophils # 2.56 10^3/uL (1.8-7.7); Neutrophils % 50.9 %; Nucleated Red Blood Cells % 0 %; Platelet Count 172 10^3/cmm (130-400); Red Cell Distribution Width 13.4 % (12.1-15.1)
[2023-05-13] MEDS: methylPREDNISolone sod succ 125 MG in water for injection-sterile 2 ML 24 MG IVP (19:49)
[2023-05-13 20:15] LABS: Alanine Aminotransferase 19 U/L (0-41); Albumin Level 3.5 g/dL (3.5-5.2); Alkaline Phosphatase 74 U/L (40-130); Anion Gap 9.1 (5-19); Aspartate Amino Transferase 22 U/L (0-40); Blood Urea Nitrogen 16 mg/dL (8-23); Calcium 8.6 mg/dL (8.5-10.5); Carbon Dioxide 34 mmol/L (22-29); Chloride 102 mmol/L (98-107); Globulin 2.9 g/dL (1.3-4.6); Glomerular Filtration Rate 113.5 mL/min (90-130); Glucose 125 mg/dL (65-115); NT Pro B Type Natriuretic Pept 770 pg/mL (0-125); Osmolality Calculated 295 mOsm/kg (285-295); Potassium 4.1 mmol/L (3.5-5.1); Sodium 141 mmol/L (136-145); Total Bilirubin 0.2 mg/dL (0.15-1.2); Total Protein 6.4 g/dL (6.6-8.7)
[2023-05-13 20:30] VITALS: BP 123/80; PULSE 69; RESP 17; O2SAT 96
[2023-05-13] MEDS: piperacillin-tazobactam 3.375 GM in sodium chloride 0.9% (plus) 50 ML IV (20:33)
[2023-05-13] MEDS: ipratropium-albuterol 3 mL Neb INHALATION (20:47)
[2023-05-13 20:48] VITALS: PULSE 71; RESP 18; O2SAT 97
[2023-05-13 20:51] VITALS: PULSE 69; RESP 18; O2SAT 97
[2023-05-13] MEDS: FUROsemide 10 mg/mL SDV 4mL 40 MG IVP (21:06)
[2023-05-13 21:16] VITALS: BP 122/82; PULSE 71; O2SAT 97
== END 2023-05-13 21:17 | disposition home or self-care (01) ==
PROVIDERS: Emergency Provider Emergency Medicine; PCP Family Medicine
DX: J44.1 Chronic obstructive pulmonary disease with (acute) exacerbation (principal)
CPT/HCPCS: 36415; 71045; 80053; 83735; 83880; 85025; 87040; 93005; 94640; 96365; 96375; 99285; J1940; J2543; J2930

== ENCOUNTER → 2023-05-14 12:51 | Outpatient (BNVA) | payer MEDICARE, MEDICAID, SELFPAY | PROVIDERS: PCP Family Medicine; Visit Provider Anesthesiology Pain Medicine | DX: M54.16 Radiculopathy, lumbar region (principal) | CPT/HCPCS: 64483; 64484; J1100; J3490 ==

== ENCOUNTER → 2023-05-27 10:26 | Outpatient (BNVA) | payer MEDICARE, MEDICAID, SELFPAY | PROVIDERS: PCP Family Medicine; Visit Provider Anesthesiology Pain Medicine | DX: M51.16 Intervertebral disc disorders with radiculopathy, lumbar region (principal); M85.88 Other specified disorders of bone density and structure, other site; Z87.81 Personal history of (healed) traumatic fracture; M54.2 Cervicalgia; G89.29 Other chronic pain; J45.50 Severe persistent asthma, uncomplicated; Z79.52 Long term (current) use of systemic steroids; M51.36 Other intervertebral disc degeneration, lumbar region; M47.816 Spondylosis without myelopathy or radiculopathy, lumbar region | CPT/HCPCS: 99213 ==

== ENCOUNTER → 2023-06-04 13:28 | Outpatient (BNVA) | payer MEDICARE, MEDICAID, SELFPAY | PROVIDERS: PCP Family Medicine; Visit Provider Family Medicine | DX: E78.5 Hyperlipidemia, unspecified (principal) | CPT/HCPCS: 80053; 80061 ==

== ENCOUNTER → 2023-06-09 07:51 | Outpatient (BNVA) | payer MEDICARE, MEDICAID, SELFPAY | PROVIDERS: PCP Family Medicine; Referring Provider Anesthesiology Pain Medicine; Visit Provider Orthopaedic Surgery | DX: M51.16 Intervertebral disc disorders with radiculopathy, lumbar region (principal); M48.062 Spinal stenosis, lumbar region with neurogenic claudication; M47.26 Other spondylosis with radiculopathy, lumbar region | CPT/HCPCS: 72100; 99204 ==

== ENCOUNTER → 2023-06-25 09:55 | Outpatient (BNVA) | payer MEDICARE, MEDICAID, SELFPAY | PROVIDERS: PCP Family Medicine; Visit Provider Internal Medicine Pulmonary Disease | DX: J45.50 Severe persistent asthma, uncomplicated (principal); J82.83 Eosinophilic asthma; Z79.52 Long term (current) use of systemic steroids; K21.9 Gastro-esophageal reflux disease without esophagitis; G47.19 Other hypersomnia; F51.3 Sleepwalking [somnambulism]; Z87.891 Personal history of nicotine dependence; K44.9 Diaphragmatic hernia without obstruction or gangrene; J84.10 Pulmonary fibrosis, unspecified; J47.9 Bronchiectasis, uncomplicated; J98.11 Atelectasis | CPT/HCPCS: 99214 ==

== ENCOUNTER 2023-07-31 07:26 | Outpatient (CLI) | payer MEDICARE, MEDICAID, SELFPAY ==
--- NOTE | 2023-07-31 08:00 | MR_ITS ---
WS: [id number] MRI LUMBAR SPINE NONCONTRAST HISTORY: Lumbar pain COMPARISON: Radiograph 06/09/2023 TECHNIQUE: Sagittal and axial multisequence imaging is submitted. Reversal of the normal cervical lordosis. C4 retrolisthesis by 4.4 mm contacting the cervical cord. C omponent of cervical stenosis at C4-5. Several remote mild compression fractures in the mid to lower thoracic spine including T7, T8, T9 and T10. L4 anterolisthesis by 5.8 mm. Mild increase in the lower lumbar lordosis. Mild disc space narrowing a nd desiccation. There is acute marrow edema with loss of vertebral body height involving the L4 verte bral body. Small amount of fluid in the L3-4 disc. Favor this is probably an acute Schmorl's node. Conus terminates normally at L1-2 disc level. L1-L2: Normal. L2-L3: Mild annular disc bulging. Mild bilateral facet arthritis. Small focal LEFT foramen disc protr usion. Mild bilateral foraminal stenosis. L3-L4: Mild annular disc bulging with a LEFT foraminal disc protrusion and annular fissure. Disc encr oachment upon the ventral thecal sac and the subarticular recesses. Mild central and bilateral subart icular recess and RIGHT foramen stenosis. L4-L5: Diffuse annular disc bulge with ligamentum flavum and facet arthritis. Severe central and bila teral subarticular recess stenosis. There is significant contact on the traversing L5 nerve roots. Mi ld bilateral foraminal narrowing. L5-S1: Mild annular disc bulging and facet arthritis. No high-grade stenosis. Paravertebral soft tissues are negative. IMPRESSION: 1. Acute marrow edema in the L4 vertebral body with loss of height. Acute to subacute mild compressio n fracture versus acute Schmorl's node. There is also small amount of fluid extending into the L3-4 d isc. 2. L4-5: Severe central and bilateral subarticular recess stenosis. Mild foraminal narrowing. Marked encroachment upon the traversing L5 nerve roots. 3. L3-4: Mild central, bilateral subarticular recess and RIGHT foramen stenosis. 4. Small focal LEFT foraminal disc protrusion at L2-3 with mild bilateral foraminal stenosis. 5. L4 anterolisthesis by 5.8 mm.
== END 2023-07-31 07:27 | disposition home or self-care (01) ==
LOC: RAD 07:26
PROVIDERS: PCP Family Medicine; Visit Provider Orthopaedic Surgery
DX: M51.16 Intervertebral disc disorders with radiculopathy, lumbar region (principal); M51.36 Other intervertebral disc degeneration, lumbar region; M48.061 Spinal stenosis, lumbar region without neurogenic claudication; M51.26 Other intervertebral disc displacement, lumbar region
CPT/HCPCS: 72148

== ENCOUNTER → 2023-10-02 10:52 | Outpatient (BNVA) | payer MEDICARE, MEDICAID, SELFPAY | PROVIDERS: PCP Family Medicine; Visit Provider Internal Medicine Pulmonary Disease | DX: J44.9 Chronic obstructive pulmonary disease, unspecified (principal); R05.8 Other specified cough; R07.89 Other chest pain; R05.3 Chronic cough; J82.83 Eosinophilic asthma; J45.50 Severe persistent asthma, uncomplicated; Z79.52 Long term (current) use of systemic steroids; G47.19 Other hypersomnia; F51.3 Sleepwalking [somnambulism]; Z87.891 Personal history of nicotine dependence; K44.9 Diaphragmatic hernia without obstruction or gangrene | CPT/HCPCS: 36415; 71046; 80053; 85025; 99214 ==

== ENCOUNTER 2023-10-07 12:39 | Emergency (ER) | payer MEDICARE, MEDICAID, SELFPAY ==
[2023-10-07 12:50] VITALS: BP 135/90; PULSE 91; TEMP 37; O2SAT 92; BMI 39.9
--- NOTE | 2023-10-07 12:51 | XRR_ITS ---
PROCEDURE INFORMATION: Exam: XR Chest Exam date and time: 10/07/2023 1:05 PM Age: 63 years old Clinical indication: Cough and dyspnea; Additional info: Dyspnea/cough TECHNIQUE: Imaging protocol: Radiologic exam of the chest. Views: 1 view. COMPARISON: CR XR chest 2V* [id number] 10/02/2023 10:54 AM FINDINGS: Lungs: Linear opacity in the right mid lung is unchanged and likely atelectasis/scarring. No focal consolidation. Pleural spaces: No sizable pleural effusion or pneumothorax. Heart/Mediastinum: No cardiomegaly. Bones/joints: Unremarkable. XR/XR chest 1V portable [id number] IMPRESSION: No acute intrathoracic findings.
[2023-10-07 13:20] LABS: Basophils % 0.2 %; Eosinophils # 0.1 10^3/uL (0.0-0.8); Eosinophils % 1.1 %; Hematocrit 44.4 % (37-53); Lymphocytes % 10.3 %; Mean Corpuscular HGB Conc 31.3 g/dL (30-55); Mean Corpuscular Hemoglobin 28.4 pg (27-33); Mean Corpuscular Volume 90.8 fl (82-101); Mean Platelet Volume 9.3 fL (7.4-10.4); Monocytes # 0.8 10^3/uL (0.2-0.9); Monocytes % 8.1 %; Neutrophils # 7.42 10^3/uL (1.8-7.7); Nucleated Red Blood Cells % 0 %; Platelet Count 263 10^3/cmm (157-399); Red Blood Count 4.89 10^6/uL (3.85-5.65); Red Cell Distribution Width 13.7 % (12.1-15.1); White Blood Count 9.28 10^3/uL (3.29-11.43)
--- NOTE | 2023-10-07 13:30 | W.ED.SOB ---
HPI - SOB/Dyspnea General: Chief Complaint: Shortness of Breath/Dyspnea Stated Complaint: SOB, Cough Time Seen by Provider: 10/07/23 12:45 Source: patient Mode of arrival: ambulatory History of Present Illness: HPI Narrative: 63-year-old male presents emergency room complaining of shortness of breath. States it began last night after he sneezed he thinks he fractured a rib when he sneezed. He states he has done this in the past. His pain is mostly with inspiration. MD elicited complaint: shortness of breath and cough Associated symptoms: Deny abdominal pain, chest pain or fever(s) Review of Systems Const: Denies: fever(s) or chills Card: Denies: chest pain Resp: Denies: dyspnea GI: Denies: abdominal pain : Denies: dysuria, urinary frequency or urinary urgency Musc: Denies: neck pain or back pain Skin/Breast: Denies: rash PFSH ED PFSH: Medical History Eosinophilic asthma Degenerative lumbar disc History of compression fracture of spine Left leg DVT 07/2022 Cognitive impairment GERD (gastroesophageal reflux disease) Asthma-COPD overlap syndrome Tremor Chronic neck pain Pulmonary emphysema with fibrosis of lung Surgical History History of cataract extraction bilateral History of tonsillectomy Hx of appendectomy Family History Other Dementia Stroke Denies family history of Diabetes CAD (coronary artery disease) Clotting disorder Hyperlipidemia Psychiatric illness Chronic kidney disease (CKD) Suicide Anesthesia complication Bleeding disorder Family history of premature coronary artery disease Lung disease Cancer Hypertension Social History Smoking and tobacco/nicotine status: former use of tobacco/nicotine Quit status (tobacco/nicotine): has quit using Year quit tobacco: 2017 Former quit date comment: 1pack per month x 2 years Second hand smoke exposure: No Alcohol intake: never Substance/Drug Use: never Physical Exam Const: COMMON NORMALS: no acute distress GENERAL APPEARANCE: cooperative and comfortable ORIENTATION/CONSCIOUSNESS: Yes awake, Yes oriented to person, Yes oriented to place and Yes oriented to time HENMT: COMMON NORMALS: normocephalic, atraumatic and hearing grossly normal bilaterally HEAD & SCALP: normocephalic and atraumatic Resp: COMMON NORMALS: normal respiratory effort, No retractions, No use of accessory muscles and clear to auscultation bilaterally AUSCULTATION: clear to auscultation bilaterally Cardio: COMMON NORMALS: regular rate, regular rhythm and No murmurs present (Cardio) RATE: regular rate RHYTHM: regular rhythm GI: COMMON NORMALS: Soft to palpation and No hepatosplenomegaly present AUSCULTATION: Yes normoactive bowel sounds PALPATION: Yes Soft to palpation, No Tenderness to palpation present (GI), No Guarding due to palpation present (GI) and Yes No hepatosplenomegaly present Extremity: COMMON NORMALS: normal to inspection, capillary refill normal, no clubbing, cyanosis or edema, no calf tenderness and no pedal edema Neuro: SENSORIUM/ORIENTATION: Yes oriented to person, Yes oriented to place and Yes oriented to time Skin: COMMON NORMALS: no rashes or lesions noted GENERAL SKIN EXAM: no rashes or lesions noted Course Vital Signs: Vital signs: Vital Signs Temperature 98.6 F 10/07/23 12:50 Pulse Rate 83 10/07/23 14:59 Respiratory Rate 16 10/07/23 15:36 Blood Pressure 131/83 10/07/23 14:59 Pulse Oximetry 94 10/07/23 15:36 Oxygen Delivery Me thod Nasal Cannula 10/07/23 14:59 Oxygen Flow Rate 6 10/07/23 14:59 MDM - SOB/Dyspnea Medical Decision Making Urine showed microscopic hematuria. CT did not show any renal stones or other pathology. Pain is reproducible with movement and with palpation of the lower ribs on the left. No acute fractures on x-rays. Given physical exam findings and presentation think this is most likely musculoskeletal in nature treat with pain medications follow-up with primary care as needed. No acute rib fractures on plain films chest x-ray was negative no sign of pneumonia or pneumothorax. Medical Records I reviewed the patient's medical records. Lab Data I reviewed the patient's lab results. 10/07/23 13:13 10/07/23 13:13 Labs/Radiology: Radiology Impressions Chest X-Ray 10/07/23 12:51 IMPRESSION: No acute intrathoracic findings. Ribs X-Ray 10/07/23 13:39 IMPRESSION: No acute findings. Laboratory Results WBC 9.28 10^3/uL (3.29-11.43) 10/07/23 13:13 RBC 4.89 10^6/uL (3.85-5.65) 10/07/23 13:13 Hgb 13.90 g/dL (11.27-16.99) 10/07/23 13:13 Hct 44.4 % (37-53) 10/07/23 13:13 MCV 90.8 fl (82-101) 10/07/23 13:13 MCH 28.4 pg (27-33) 10/07/23 13:13 MCHC 31.3 g/dL (30-55) 10/07/23 13:13 RDW 13.7 % (12.1-15.1) 10/07/23 13:13 Plt Count 263 10^3/cmm (157-399) 10/07/23 13:13 MPV 9.3 fL (7.4-10.4) 10/07/23 13:13 Neut % (Auto) 80.0 % 10/07/23 13:13 Lymph % (Auto) 10.3 % 10/07/23 13:13 Arthur % (Auto) 8.1 % 10/07/23 13:13 Eos % (Auto) 1.1 % 10/07/23 13:13 Baso % (Auto) 0.2 % 10/07/23 13:13 Neut # (Auto) 7.42 10^3/uL (1.8-7.7) 10/07/23 13:13 Lymph # (Auto) 1.0 10^3/uL (0.8-4.8) 10/07/23 13:13 Arthur # (Auto) 0.8 10^3/uL (0.2-0.9) 10/07/23 13:13 Eos # (Auto) 0.1 10^3/uL (0.0-0.8) 10/07/23 13:13 Baso # (Auto) 0.0 10^3/uL (0.0-0.1) 10/07/23 13:13 Nucleated RBC % (auto) 0 % 10/07/23 13:13 Nucleated RBCs # 0.0 /100WBC 10/07/23 13:13 Sodium 139 mmol/L (136-145) 10/07/23 13:13 Potassium 4.3 mmol/L (3.5-5.1) 10/07/23 13:13 Chloride 101 mmol/L (98-107) 10/07/23 13:13 Carbon Dioxide 30 mmol/L (22-29) H 10/07/23 13:13 Anion Gap 12.3 (5-19) 10/07/23 13:13 BUN 20 mg/dL (8-23) 10/07/23 13:13 Creatinine 0.7 mg/dL (0.7-1.2) 10/07/23 13:13 GFR Calculation 113.5 mL/min (90-130) 10/07/23 13:13 Glucose 114 mg/dL (65-115) 10/07/23 13:13 Calculated Osmolality 291 mOsm/kg (285-295) 10/07/23 13:13 Calcium 9.0 mg/dL (8.5-10.5) 10/07/23 13:13 Total Bilirubin 0.4 mg/dL (0.15-1.2) 10/07/23 13:13 AST 18 U/L (0-40) 10/07/23 13:13 ALT 22 U/L (0-41) 10/07/23 13:13 Alkaline Phosphatase 104 U/L (40-130) 10/07/23 13:13 NT-Pro-B Natriuret Pep 93 pg/mL (0-125) 10/07/23 13:13 Total Protein 7.9 g/dL (6.6-8.7) 10/07/23 13:13 Albumin 4.0 g/dL (3.5-5.2) 10/07/23 13:13 Globulin 3.9 g/dL (1.3-4.6) 10/07/23 13:13 Urine Color Yellow (Yellow) 10/07/23 14:03 Urine Appearance Sl hazy (CLEAR) A 10/07/23 14:03 Urine pH 6 (5-7) 10/07/23 14:03 Ur Specific [place] 1.020 (1.005-1.030) 10/07/23 14:03 Urine Protein Trace (Negative) 10/07/23 14:03 Urine Glucose (UA) Norm (Normal) 10/07/23 14:03 Urine Ketones Negative (Negative) 10/07/23 14:03 Urine Blood 2+ (Negative) H 10/07/23 14:03 Urine Nitrate Negative (Negative) 10/07/23 14:03 Urine Bilirubin Neg (Negative) 10/07/23 14:03 Urine Urobilinogen Norm mg/dL (Negative) 10/07/23 14:03 Ur Leukocyte Esterase Negative (Negative) 10/07/23 14:03 Urine RBC 5-10 /hpf (0-2) H 10/07/23 14:03 Urine WBC 0-4 /hpf (0-5) H 10/07/23 14:03 Ur Squamous Epith Cells None /hpf (0-5) 10/07/23 14:03 Amorphous Sediment Not Reportable 10/07/23 14:03 Urine Bacteria None /hpf (NONE) 10/07/23 14:03 Urine Mucus 3+ /hpf 10/07/23 14:03 All radiology interpretation(s) finalized by discharge Discharge Plan Discharge Patient Disposition: Home Clinical Impression: Left-sided chest wall pain Condition: Stable Prescriptions: New hydrocodone-acetaminophen 5-325 mg tablet 1 tab PO Q6H PRN (Reason: pain) Qty: 10 0RF No Action (DME) wheelchair See Rx Instructions .Route .MEDSUPPLY Qty: 1 0RF Rx Instructions: As directed (DME) hsopital bed See Rx Instructions .Route .MEDSUPPLY Qty: 1 0RF Rx Instructions: As directed prednisone 5 mg tablet 5 mg PO DAILY Qty: 30 3RF doxycycline hyclate 100 mg tablet 100 mg PO Q12H Qty: 14 0RF Yupelri 175 mcg/3 mL solution for nebulization 175 mcg inhalation DAILY Qty: 90 6RF budesonide 0.5 mg/2 mL suspension for nebulization 0.5 mg inhalation BID Qty: 120 6RF formoterol fumarate [Perforomist] 20 mcg/2 mL solution for nebulization 2 ml inhalation BID Qty: 120 6RF primidone 50 mg tablet 100 mg PO BEDTIME nitroglycerin 0.4 mg tablet, sublingual 0.4 mg sublingual Q5M PRN (Reason: chest pain) 30 Days Qty: 30 3RF Rx Instructions: until response; do not exceed 3 doses per episode Fasenra Pen 30 mg/mL auto-injector 30 mg SUBCUT Q28D Qty: 1 3RF Rx Instructions: 30 mg injection once every 4 weeks, for first 3 doses.Then Once every 8 weeks olanzapine [Zyprexa] 2.5 mg tablet 2.5 mg PO DAILY Qty: 90 1RF Breztri Aerosphere 160-9-4.8 mcg/actuation HFA aerosol inhaler See Rx Instructions .ROUTE .COMPLEX Qty: 11 0RF Dose Instruction: Inhale 2 puffs by mouth twice daily Rx Instructions: Inhale 2 puffs by mouth twice daily albuterol sulfate 2.5 mg /3 mL (0.083 %) solution for nebulization 2.5 mg inhalation Q4H PRN (Reason: shortness of breath or wheezing) Qty: 180 1RF levalbuterol tartrate 45 mcg/actuation HFA aerosol inhaler 2 inh inhalation Q4H PRN (Reason: shortness of breath or wheezing) Qty: 15 2RF metoprolol tartrate 25 mg tablet 25 mg PO BID atorvastatin 20 mg tablet 20 mg PO QPM citalopram 40 mg tablet 40 mg PO DAILY isosorbide mononitrate 30 mg tablet extended release 24 hr 30 mg PO DAILY pantoprazole 40 mg tablet,delayed release (DR/EC) 40 mg PO DAILY gabapentin 300 mg capsule 300 mg PO Q8H montelukast 10 mg tablet 10 mg PO DAILY Discharge Orders: Discharge ED (Routine); Ordered 10/07/23 Ordered By: Campbell Espinoza Referrals: Shweta Márquez DO [Primary Care Provider] - Discharge Diet: Usual diet Discharge Activity: Increase activity as tolerated Patient Instructions: Opioid Safety, Pain Management Activity Restrictions/Additional Instructions: Thank you for choosing [facility] for your healthcare needs today. Please realize this is an emergency room and that we are providing you with a medical screening exam and this may not be complete and all inclusive of all the testing and or work up that you may need to determine your ailment or severity of your illness. It is very important that you follow up as instructed or that you return to the Emergency Department should you have concerns or if your condition changes or worsens in any way. You are seen in the emergency room for left-sided rib pain. Laboratory studies were unremarkable you did have a small amount of blood in your urine however CT did not show any acute changes. Coding Level of Care Code ED Fatback Trimmer for Janet Nj
--- NOTE | 2023-10-07 13:39 | XRR_ITS ---
PROCEDURE INFORMATION: Exam: XR Left Ribs Exam date and time: 10/07/2023 1:59 PM Age: 63 years old Clinical indication: Chest wall pain; left TECHNIQUE: Imaging protocol: Radiologic exam of the left ribs. Views: 2 views. COMPARISON: CR XR chest 1V portable [id number] 10/07/2023 1:05 PM FINDINGS: Bones/joints: Normal. Soft tissues: Normal. XR/XR ribs LT 2V* [id number] IMPRESSION: No acute findings.
[2023-10-07 13:46] LABS: Alanine Aminotransferase 22 U/L (0-41); Alkaline Phosphatase 104 U/L (40-130); Anion Gap 12.3 (5-19); Aspartate Amino Transferase 18 U/L (0-40); Blood Urea Nitrogen 20 mg/dL (8-23); Carbon Dioxide 30 mmol/L (22-29); Chloride 101 mmol/L (98-107); Globulin 3.9 g/dL (1.3-4.6); Glomerular Filtration Rate 113.5 mL/min (90-130); Glucose 114 mg/dL (65-115); NT Pro B Type Natriuretic Pept 93 pg/mL (0-125); Osmolality Calculated 291 mOsm/kg (285-295); Potassium 4.3 mmol/L (3.5-5.1); Sodium 139 mmol/L (136-145); Total Bilirubin 0.4 mg/dL (0.15-1.2); Total Protein 7.9 g/dL (6.6-8.7)
[2023-10-07] MEDS: HYDROcodone-acetaminophen 5-325 mg Tablet 1 TAB PO (13:49)
[2023-10-07 13:50] VITALS: BP 121/103; PULSE 88; O2SAT 94
[2023-10-07 14:24] LABS: Add Urine Microscopic? YES; Bilirubin Urine Neg (Negative); Blood Urine 2+ (Negative); Glucose Urine UA Norm (Normal); Ketones Urine Negative (Negative); Leukocyte Esterase Urine Negative (Negative); Nitrate Urine Negative (Negative); Protein Urine Trace (Negative); Urine Appearance SL Hazy (CLEAR); Urine Color Yellow (Yellow); Urobilinogen Urine Norm (Negative); pH Urine 6 (5-7)
[2023-10-07 14:28] LABS: Add Urine Culture? No; Mucus Urine 3+ /hpf; WBC Urine 0-4 /hpf (0-5)
--- NOTE | 2023-10-07 14:41 | CT_ITS ---
WS: [id number] CT ABDOMEN PELVIS TECHNIQUE: Noncontrast CT of the abdomen and pelvis with coronal and sagittal reformatted images. CLINICAL INFORMATION: flank pain/hematuria COMPARISON: None. DLP: 1173.[address] scans at [facility] use at least one of these dose optimization techniques: automated e xposure control; mA and/or kV adjustment per patient size (includes targeted exams where dose is matc hed to clinical indication); or iterative reconstruction. FINDINGS: Adrenal glands are normal. No obstructing renal or ureteral calculi. No hydronephrosis. Few tiny hepa tic cysts. Moderate esophageal hiatal hernia. Noncontrast spleen appears normal. Bronchiectasis with subsegmental atelectasis RIGHT lower lobe. Air distended stomach. Noncontrast pancreas is normal. Nor mal caliber abdominal aorta. Aortic calcification. Fat-containing RIGHT inguinal hernia. Fat-containi ng umbilical hernia. Moderate to severe central canal stenosis L4-5 appears unchanged since the lumbar spine MRI 07/31/2023 . Endplate Schmorl's node L4 with mild compression superior endplate appears unchanged. IMPRESSION: 1. No hydronephrosis in either kidney. No obstructing renal or ureteral calculi. 2. Small to moderate esophageal hiatal hernia. 3. Normal sigmoid colon. 4. Moderate to severe central canal stenosis L4-5 appears unchanged since the lumbar spine MRI 2022. Endplate Schmorl's node L4 with mild compression superior endplate appears unchanged.
[2023-10-07 14:59] VITALS: BP 131/83; PULSE 83; O2SAT 96
[2023-10-07 15:36] VITALS: RESP 16; O2SAT 94
[2023-10-07] MEDS: morphine 4 mg/mL SDV 1 mL IVP (15:36)
== END 2023-10-07 17:32 | disposition home or self-care (01) ==
PROVIDERS: Emergency Provider Family Medicine; PCP Family Medicine
DX: R07.89 Other chest pain (principal); R31.29 Other microscopic hematuria; Z87.891 Personal history of nicotine dependence; J44.9 Chronic obstructive pulmonary disease, unspecified
CPT/HCPCS: 36415; 71045; 71100; 74176; 80053; 81001; 83880; 85025; 96374; 99285; J2270

== ENCOUNTER 2023-10-21 07:36 | Outpatient (CLI) | payer MEDICARE, MEDICAID, SELFPAY ==
--- NOTE | 2023-10-21 08:00 | CT_ITS ---
WS: [id number] CT chest wo con [id number] HISTORY: Chronic cough TECHNIQUE: Axial imaging performed through the thorax. Coronal and sagittal reformats are submitted. All CT scans at [facility] use at least one of these dose optimization techniques: automated exposure control; mA and/or kV adjustment per patient size (includes targeted exams where dose is mat ched to clinical indication); or iterative reconstruction. CONTRAST: None DLP: 626.85 mGy.cm COMPARISON: 03/26/2022 Lungs and central airway: Hyperinflated lungs. No pulmonary mass or nodule. Platelike atelectasis leida ng the lingula and fissures of the RIGHT lung. Pleura: Normal. No pleural effusion. Heart and pericardium: Normal size heart with no pericardial effusion. Mediastinum and jennifer: No mediastinum or hilar adenopathy. Vessels: Mild atherosclerosis aorta. No aneurysm. Normal sized pulmonary artery. Chest wall and lower neck: No soft tissue masses. Upper abdomen: There is several scattered hypodensities throughout the liver which cannot be characte rized further. These were noted on the prior CT of 03/26/2022 and likely representing cysts or hemangi omas. Gallbladder is negative. No adrenal mass. Osseous structures: Nondisplaced fracture involving the LEFT lateral eighth rib. No additional fractu res are identified. Mild increase in thoracic kyphosis. Very mild anterior wedging of several of the midthoracic vertebral bodies. IMPRESSION: 1. Nondisplaced lateral LEFT eighth rib fracture. 2. Pulmonary hyperexpansion with platelike areas of atelectasis bilaterally. 3. No mass or nodule. No pneumonia.
== END 2023-10-21 07:37 | disposition home or self-care (01) ==
LOC: RAD 07:36
PROVIDERS: PCP Family Medicine; Visit Provider Internal Medicine Pulmonary Disease
DX: S22.32XA Fracture of one rib, left side, initial encounter for closed fracture (principal); X58.XXXA Exposure to other specified factors, initial encounter; R07.89 Other chest pain; R05.3 Chronic cough; J98.11 Atelectasis
CPT/HCPCS: 71250

== ENCOUNTER → 2023-10-22 10:18 | Outpatient (BNVA) | payer MEDICARE, MEDICAID, SELFPAY | PROVIDERS: PCP Family Medicine; Visit Provider Orthopaedic Surgery | DX: M48.062 Spinal stenosis, lumbar region with neurogenic claudication (principal) | CPT/HCPCS: 99214 ==

== ENCOUNTER 2024-01-13 21:58 | Emergency (ER) | payer MEDICARE, MEDICAID, SELFPAY ==
[2024-01-13 22:06] VITALS: BP 160/96; PULSE 87; RESP 24; TEMP 36.8; O2SAT 88
--- NOTE | 2024-01-13 22:21 | XRR_ITS ---
PROCEDURE INFORMATION: Exam: XR Chest Exam date and time: 01/13/2024 10:38 PM Age: 63 years old Clinical indication: Shortness of breath; Additional info: Copd/dyspnea TECHNIQUE: Imaging protocol: Radiologic exam of the chest. Views: 1 view. COMPARISON: CT chest [facility] [id number] 10/21/2023 8:08 AM FINDINGS: Lungs: Unremarkable. No consolidation. Pleural spaces: Unremarkable. No pleural effusion. No pneumothorax. Heart/Mediastinum: Unremarkable. No cardiomegaly. Bones/joints: Unremarkable. XR/XR chest 1V portable [id number] IMPRESSION: No focal consolidation.
--- NOTE | 2024-01-13 22:21 | ECG_ITS ---
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 Measurements Intervals [place] Rate: 92 P: 43 LA: 309 QRS: 9 QRSD: 87 T: 56 QT: 339 QTc: 420 Interpretive Statements SINUS RHYTHM WITH FIRST DEGREE AV BLOCK INDETERMINATE AXIS Compared to ECG 05/13/2023 19:15:25 Indeterminate axis now present Electronically Signed On 01-14-2024 6:35:48 CDT by Kedar Coyle M.D. [id number] f
[2024-01-13 22:26] LABS: Basophils % 0.2 %; Eosinophils # 0.2 10^3/uL (0.0-0.8); Eosinophils % 3.2 %; Hematocrit 39.4 % (37-53); Lymphocytes # 0.7 10^3/uL (0.8-4.8); Lymphocytes % 12.4 %; Mean Corpuscular HGB Conc 30.7 g/dL (30-55); Mean Corpuscular Hemoglobin 27.4 pg (27-33); Mean Corpuscular Volume 89.3 fl (82-101); Monocytes # 0.5 10^3/uL (0.2-0.9); Monocytes % 7.5 %; Neutrophils # 4.54 10^3/uL (1.8-7.7); Neutrophils % 75.7 %; Nucleated Red Blood Cells % 0 %; Platelet Count 227 10^3/cmm (157-399); Red Blood Count 4.41 10^6/uL (3.85-5.65); Red Cell Distribution Width 14.9 % (12.1-15.1); White Blood Count 5.99 10^3/uL (3.29-11.43)
[2024-01-13] MEDS: methylPREDNISolone sod succ 125 mg/2 mL INJ IVP (22:28)
[2024-01-13 22:40] VITALS: PULSE 67; RESP 18; O2SAT 98
[2024-01-13] MEDS: ipratropium-albuterol 3 mL Neb 9 ML INHALATION (22:40)
[2024-01-13 22:46] LABS: Alanine Aminotransferase 26 U/L (0-41); Albumin Level 3.9 g/dL (3.5-5.2); Alkaline Phosphatase 110 U/L (40-130); Anion Gap 12.7 (5-19); Aspartate Amino Transferase 22 U/L (0-40); Blood Urea Nitrogen 25 mg/dL (8-23); Calcium 8.9 mg/dL (8.5-10.5); Carbon Dioxide 28 mmol/L (22-29); Chloride 101 mmol/L (98-107); Creatinine Clr Calc Pharmacy 104.5244; Globulin 3.7 g/dL (1.3-4.6); Glucose 124 mg/dL (65-115); Osmolality Calculated 290 mOsm/kg (285-295); Potassium 4.7 mmol/L (3.5-5.1); Sodium 137 mmol/L (136-145); Total Bilirubin 0.2 mg/dL (0.15-1.2); Total Protein 7.6 g/dL (6.6-8.7)
[2024-01-13 22:54] VITALS: PULSE 67; RESP 18; O2SAT 98
--- NOTE | 2024-01-13 23:54 | ED_ITS ---
HPI - SOB/Dyspnea 2 General: Chief Complaint: Shortness of Breath/Dyspnea Stated Complaint: sob, asthma attack Time Seen by Provider: 01/13/24 22:21 History of Present Illness: HPI Narrative: 63-year-old male presents emergency depa rtment with complaints of increased shortness of breath. He does have a history of chronic asthma since . He does have albuterol treatments and chronically wears 6 L nasal cannula which is what he is utilizing at present. He did appear to have increased work of breathing upon initial arrival to the emergency department. He was having slight accessory muscle usage. He does have expiratory wheezes and a wet sounding cough that is productive of yellow/green sputum for the previous 1 week. He denies fevers chills or night sweats. He denies chest pain dizziness lightheaded feeling. Associated symptoms: Deny chest pain or palpitations Review of Systems 2 General: Reports: 10 or more systems reviewed and unremarkable except in HPI and below Card: Denies: chest pain or palpitations Resp: Reports: dyspnea, productive cough and wheezing PFSH ED 2 PFSH: Medical History Eosinophilic asthma Degenerative lumbar disc History of compression fracture of spine Left leg DVT 07/2022 Cognitive impairment GERD (gastroesophageal reflux disease) Asthma-COPD overlap syndrome Tremor Chronic neck pain Pulmonary emphysema with fibrosis of lung Surgical History History of cataract extraction bilateral History of tonsillectomy Hx of appendectomy Family History Other Dementia Stroke Denies family history of Diabetes CAD (coronary artery disease) Clotting disorder Hyperlipidemia Psychiatric illness Chronic kidney disease (CKD) Suicide Anesthesia complication Bleeding disorder Family history of premature coronary artery disease Lung disease Cancer Hypertension Social History Smoking and tobacco/nicotine status: former use of tobacco/nicotine Quit status (tobacco/nicotine): has quit using Year quit tobacco: 2017 Former quit date comment: 1pack per month x 2 years Second hand smoke exposure: No Alcohol intake: never Substance/Drug Use: never Physical Exam 2 Narrative: EXAM NARRATIVE: Constitutional: the patient appears well nourished and of normal development. Vital signs as documented. No acute distress at present. Alert and oriented-to person, place, time and situation. Head, eyes, ears, nose, mouth, throat: Normocephalic, atraumatic. Pupils-equal, round, reactive to light. No scleral icterus. Normal-appearing external ears. Normal appearing nasal turbinates, no drainage. No obvious oral lesions, posterior oropharynx without erythema or exudates. Neck: Supple, trachea is midline, no lymphadenopathy, no jugular venous distension, thyromegaly, or carotid bruits. Carotid upstrokes are brisk bilaterally. Lungs: Scattered expiratory wheezes throughout, rhonchi noted bilaterally. Symmetrical rise and fall of chest, mild signs of increased work of breathing at present. Cardiac: Regular rate and rhythm, positive S1, S2. No murmurs, rubs or gallops that I can appreciate Abdomen: Soft, non-tender to palpation, normal active bowel sounds to all quadrants. No palpable masses, no organomegaly and abdominal bruits. Extremities: 2+ pulses in the upper extremities that are equal bilaterally, 2+ pulses in the lower extremities that are equal bilaterally. Non-edematous. Moves all extremities well, sensation to all extremities are noted. Skin: Warm, dry, intact. Course 2 Vital Signs: Vital signs: Vital Signs Temperature 98.2 F 01/13/24 22:06 Pulse Rate 67 01/13/24 22:54 Respiratory Rate 18 01/13/24 22:54 Blood Pressure 160/96 01/13/24 22:06 Pulse Oximetry 98 01/13/24 22:54 Oxygen Delivery Me thod Nasal Cannula 01/13/24 22:54 Oxygen Flow Rate 6 01/13/24 22:54 MDM - SOB/Dyspnea Medical Decision Making I will obtain a CBC and CMP as well as a chest x-ray for evaluation. Patient was provided an hour-long breathing treatment as well as Solu-Medrol IV. Reevaluation demonstrates significant improvement in the patient's respirations. He states that he feels much better. He does have albuterol nebulizer machine and treatments at home. Chest x-ray did not demonstrate acute abnormalities. Given the patient's chronic history of asthma and his thick production of sputum I will provide him written prescriptions for antibiotics and guaifenesin. I discussed the plan of care with the patient and his sister who is his caregiver and they have agreed to follow-up with a primary care provider and I will discharge the patient at this time. Medical Records I reviewed the patient's medical records. Lab Data I reviewed the patient's lab results. 01/13/24 22:22 01/13/24 22:22 Labs/Radiology: Radiology Impressions Chest X-Ray 01/13/24 22:21 IMPRESSION: No focal consolidation. Laboratory Results WBC 5.99 10^3/uL (3.29-11.43) 01/13/24 22: RBC 4.41 10^6/uL (3.85-5.65) 01/13/24 22:22 Hgb 12.10 g/dL (11.27-16.99) 01/13/24 22: Hct 39.4 % (37-53) 01/13/24 22: MCV 89.3 fl (82-101) 01/13/24 22: MCH 27.4 pg (27-33) 01/13/24 22: MCHC 30.7 g/dL (30-55) 01/13/24 22: RDW 14.9 % (12.1-15.1) 01/13/24 22: Plt Count 227 10^3/cmm (157-399) 01/13/24 22: MPV 9.0 fL (7.4-10.4) 01/13/24 22: Neut % (Auto) 75.7 % 01/13/24 22: Lymph % (Auto) 12.4 % 01/13/24 22: [place] % (Auto) 7.5 % 01/13/24 22: Eos % (Auto) 3.2 % 01/13/24 22: Baso % (Auto) 0.2 % 01/13/24 22: Neut # (Auto) 4.54 10^3/uL (1.8-7.7) 01/13/24 22: Lymph # (Auto) 0.7 10^3/uL (0.8-4.8) L 01/13/24 22: [place] # (Auto) 0.5 10^3/uL (0.2-0.9) 01/13/24 22:22 Eos # (Auto) 0.2 10^3/uL (0.0-0.8) 01/13/24 22:22 Baso # (Auto) 0.0 10^3/uL (0.0-0.1) 01/13/24 22:22 Nucleated RBC % (auto) 0 % 01/13/24 22:22 Nucleated RBCs # 0.0 /100WBC 01/13/24 22:22 Sodium 137 mmol/L (136-145) 01/13/24 22:22 Potassium 4.7 mmol/L (3.5-5.1) 01/13/24 22:22 Chloride 101 mmol/L (98-107) 01/13/24 22:22 Carbon Dioxide 28 mmol/L (22-29) 01/13/24 22:22 Anion Gap 12.7 (5-19) 01/13/24 22:22 BUN 25 mg/dL (8-23) H 01/13/24 22:22 Creatinine 0.9 mg/dL (0.7-1.2) 01/13/24 22:22 GFR Calculation 85.0 mL/min (90-130) L 01/13/24 22:22 Glucose 124 mg/dL (65-115) H 01/13/24 22:22 Calculated Osmolality 290 mOsm/kg (285-295) 01/13/24 22:22 Calcium 8.9 mg/dL (8.5-10.5) 01/13/24 22:22 Total Bilirubin 0.2 mg/dL (0.15-1.2) 01/13/24 22:22 AST 22 U/L (0-40) 01/13/24 22:22 ALT 26 U/L (0-41) 01/13/24 22:22 Alkaline Phosphatase 110 U/L (40-130) 01/13/24 22:22 Total Protein 7.6 g/dL (6.6-8.7) 01/13/24 22:22 Albumin 3.9 g/dL (3.5-5.2) 01/13/24 22:22 Globulin 3.7 g/dL (1.3-4.6) 01/13/24 22:22 All radiology interpretation(s) finalized by discharge Discharge Plan Discharge Patient Disposition: Home Clinical Impression: Asthma-COPD overlap syndrome Condition: Stable Prescriptions: New azithromycin [Zithromax Z-Beka] 250 mg tablet See Rx Instructions .ROUTE .COMPLEX Qty: 6 0RF Rx Instructions: For 250 mg dose pack: take 500 mg today (day 1), then 250 mg for 4 days (days 2-5) guaifenesin 1,200 mg tablet extended release 12hr 1,200 mg PO BID Qty: 14 0RF No Action (DME) wheelchair See Rx Instructions .Route .MEDSUPPLY Qty: 1 0RF Rx Instructions: As directed (DME) hsopital bed See Rx Instructions .Route .MEDSUPPLY Qty: 1 0RF Rx Instructions: As directed pantoprazole 40 mg tablet,delayed release (DR/EC) 40 mg PO DAILY Qty: 90 3RF citalopram 40 mg tablet 40 mg PO DAILY Qty: 90 1RF olanzapine [Zyprexa] 2.5 mg tablet 2.5 mg PO DAILY Qty: 90 1RF metoprolol tartrate 25 mg tablet 25 mg PO BID Qty: 180 3RF montelukast 10 mg tablet 10 mg PO DAILY Qty: 90 1RF prednisone 5 mg tablet 5 mg PO DAILY Qty: 30 3RF Yupelri 175 mcg/3 mL solution for nebulization 175 mcg inhalation DAILY Qty: 90 6RF budesonide 0.5 mg/2 mL suspension for nebulization 0.5 mg inhalation BID Qty: 120 6RF formoterol fumarate [Perforomist] 20 mcg/2 mL solution for nebulization 2 ml inhalation BID Qty: 120 6RF primidone 50 mg tablet 100 mg PO BEDTIME Breztri Aerosphere 160-9-4.8 mcg/actuation HFA aerosol inhaler See Rx Instructions .ROUTE .COMPLEX Qty: 11 0RF Dose Instruction: Inhale 2 puffs by mouth twice daily Rx Instructions: Inhale 2 puffs by mouth twice daily albuterol sulfate 2.5 mg /3 mL (0.083 %) solution for nebulization 2.5 mg inhalation Q4H PRN (Reason: shortness of breath or wheezing) Qty: 180 1RF (DME) A7005 Nebulizer Set See Rx Instructions .Route .MEDSUPPLY Qty: 1 0RF Rx Instructions: As directed gabapentin 300 mg capsule See Rx Instructions .ROUTE .COMPLEX Qty: 90 0RF Dose Instruction: TAKE 1 CAPSULE BY MOUTH EVERY 8 HOURS Rx Instructions: TAKE 1 CAPSULE BY MOUTH EVERY 8 HOURS Fasenra Pen 30 mg/mL auto-injector 30 mg SUBCUT .q 8 weeks Qty: 1 6RF Rx Instructions: 30 mg injection once every 4 weeks, for first 3 doses.Then Once every 8 weeks isosorbide mononitrate 30 mg tablet extended release 24 hr See Rx Instructions .ROUTE .COMPLEX Qty: 90 1RF Dose Instruction: Take 1 tablet by mouth once daily Rx Instructions: Take 1 tablet by mouth once daily nitroglycerin 0.4 mg tablet, sublingual See Rx Instructions .ROUTE .COMPLEX Qty: 25 0RF Dose Instruction: DISSOLVE ONE TABLET UNDER THE TONGUE EVERY 5 MINUTES NEEDED FOR CHEST PAIN. DO NOT EXCEED A TOTAL OF 3 DOSES IN 15 MINUTES Rx Instructions: DISSOLVE ONE TABLET UNDER THE TONGUE EVERY 5 MINUTES NEEDED FOR CHEST PAIN. DO NOT EXCEED A TOTAL OF 3 DOSES IN 15 MINUTES levalbuterol tartrate 45 mcg/actuation HFA aerosol inhaler 2 inh inhalation Q4H PRN (Reason: shortness of breath or wheezing) Qty: 15 2RF atorvastatin 20 mg tablet 20 mg PO QPM Discharge Orders: Discharge ED (Routine); Ordered 01/13/24 Ordered By: Eric Trevino Referrals: Shweta Márquez DO [Primary Care Provider] - Discharge Diet: Usual diet Discharge Activity: Resume usual activity Patient Instructions: Opioid Safety, Pain Management Activity Restrictions/Additional Instructions: Activity Restrictions/Additional Instructions: Thank you for choosing [facility] for your healthcare needs today. Please realize that you were seen in the Emergency Department and that we are providing you with an emergency medical screening exam and this may not be a complete and all inclusive of all the testing and or medical work-up that you may need to determine your ailment or severity of your illness. It is very important that you follow-up as instructed with your Primary care provider or Specialist for additional evaluation and to discuss your medical treatment plan. Coding Level of Care Code ED Beam Doffer for Janet N[place]
[2024-01-14 00:26] VITALS: BP 113/66; PULSE 64; RESP 17; O2SAT 96
[2024-01-14 00:27] VITALS: BP 113/66; PULSE 64; RESP 17; O2SAT 96
== END 2024-01-14 00:11 | disposition home or self-care (01) ==
PROVIDERS: Emergency Provider Internal Medicine; PCP Family Medicine
DX: J44.89 Other specified chronic obstructive pulmonary disease (principal); Z87.891 Personal history of nicotine dependence
CPT/HCPCS: 71045; 80053; 85025; 93005; 94640; 96374; 99285; J2919

== ENCOUNTER 2024-01-15 15:06 | Inpatient (IN) | payer MEDICARE, MEDICAID, SELFPAY ==
[2024-01-15] VITALS (12 sets, daily range): BP systolic 117–132; BP diastolic 72–86; PULSE 62–93; RESP 16–20; TEMP 36.3–37; O2SAT 93–97; BMI 40.3; BMI 40.4
--- NOTE | 2024-01-15 15:08 | XR_ITS ---
WS: [id number] Exam: XR chest 1V portable [id number] Date/Time of Exam: 01/15/2024 3:20 PM Reason For Exam: sob Comparison 01/13/2024. The lungs are clear and fully inflated. Normal cardiomediastinal silhouette. Mild bilateral plaque at electasis. No pleural effusions. IMPRESSION: 1. No acute cardiopulmonary finding.
--- NOTE | 2024-01-15 15:15 | ED_ITS ---
HPI - SOB/Dyspnea 2 General: Chief Complaint: Shortness of Breath/Dyspnea Stated Complaint: sob Time Seen by Provider: 01/15/24 15:07 Source: patient and EMS Mode of arrival: EMS Limitations: no limitations History of Present Illness: HPI Narrative: 64-year-old male has a history of COPD a nd asthma states been having increasing shortness of breath this morning having asthma attack. EMS when he arrived states he was severe distress they gave him a breathing treatment Solu-Medrol terbutaline along with an epinephrine treatment he is typically on 5 L at home and brought him in on 10 L. Had a slight cough he denies any fever she still has wheezing here and is in distress. Able speak in roughly 3-5 word sentences Associated symptoms: Deny abdominal pain, chest pain, fever(s), nausea or vomiting Review of Systems 2 Const: Denies: fever(s), chills, body aches or change in appetite ENMT: Denies: throat pain or dental pain Card: Denies: chest pain Resp: Reports: dyspnea GI: Denies: abdominal pain, nausea, vomiting or diarrhea Musc: Denies: neck pain or back pain Skin/Breast: Denies: rash Neuro: Denies: headache(s) PFSH ED 2 PFSH: Medical History Eosinophilic asthma Degenerative lumbar disc History of compression fracture of spine Left leg DVT 07/2022 Cognitive impairment GERD (gastroesophageal reflux disease) Asthma-COPD overlap syndrome Tremor Chronic neck pain Pulmonary emphysema with fibrosis of lung Surgical History History of cataract extraction bilateral History of tonsillectomy Hx of appendectomy Family History Other Dementia Stroke Denies family history of Diabetes CAD (coronary artery disease) Clotting disorder Hyperlipidemia Psychiatric illness Chronic kidney disease (CKD) Suicide Anesthesia complication Bleeding disorder Family history of premature coronary artery disease Lung disease Cancer Hypertension Social History Smoking and tobacco/nicotine status: former use of tobacco/nicotine Quit status (tobacco/nicotine): has quit using Year quit tobacco: 2017 Former quit date comment: 1pack per month x 2 years Second hand smoke exposure: No Alcohol intake: never Substance/Drug Use: never Physical Exam 2 Const: COMMON NORMALS: patient oriented x3 GENERAL APPEARANCE: ill appearing HENMT: COMMON NORMALS: normocephalic and atraumatic HEAD & SCALP: n ormocephalic and atraumatic Eye: COMMON NORMALS: Equal, round and reactive pupils present and EOMs intact bilaterally PUPIL: Yes Equal, round and reactive pupils present Neck/C-Spine: COMMON NORMALS: full ROM and supple Chest: COMMONS NORMALS: normal inspection of the chest and normal palpation of entire chest wall Resp: EFFORT & INSPECTION: Yes tachypneic, Yes respiratory distress and Yes audible wheezes Cardio: COMMON NORMALS: regular rate, regular rhythm and No murmurs present (Cardio) RATE: regular rate RHYTHM: regular rhythm GI: COMMON NORMALS: Normal to inspection, nondistended, normoactive bowel sounds present, Soft to palpation, non-tender and no masses PALPATION: Yes Soft to palpation Extremity: COMMON NORMALS: normal to inspection and full ROM Neuro: COMMON NORMALS: patient oriented x3, moves all extremities and no focal motor deficits Psych: COMMON NORMALS: mental status grossly normal, Normal thought process present and cooperative THOUGHT PROCESS: Normal thought process present Skin: COMMON NORMALS: no rashes or lesions noted and no wounds GENERAL SKIN EXAM: no rashes or lesions noted Course 2 Vital Signs: Vital signs: Vital Signs Temperature 98.3 F 01/15/24 15:08 Pulse Rate 88 01/15/24 16:29 Respiratory Rate 19 H 01/15/24 16:29 Blood Pressure 125/72 01/15/24 16:29 Pulse Oximetry 93 01/15/24 16:29 Oxygen Delivery Me thod Nasal Cannula 01/15/24 15:20 Oxygen Flow Rate 4 01/15/24 15:20 MDM - SOB/Dyspnea Medical Decision Making Patient presents here with COPD exacerbation he is failed outpatient treatment of steroids he has improved here but will admit for observation at this time. Medical Records I reviewed the patient's medical records. Lab Data I reviewed the patient's lab results. 01/15/24 15:32 01/15/24 15:32 Labs/Radiology: Laboratory Results WBC 9.37 10^3/uL (3.29-11.43) 01/15/24 15:32 RBC 4.26 10^6/uL (3.85-5.65) 01/15/24 15:32 Hgb 11.80 g/dL (11.27-16.99) 01/15/24 15:32 Hct 38.5 % (37-53) 01/15/24 15:32 MCV 90.4 fl (82-101) 01/15/24 15:32 MCH 27.7 pg (27-33) 01/15/24 15:32 MCHC 30.6 g/dL (30-55) 01/15/24 15:32 RDW 15.2 % (12.1-15.1) H 01/15/24 15:32 Plt Count 241 10^3/cmm (157-399) 01/15/24 15:32 MPV 10.1 fL (7.4-10.4) 01/15/24 15:32 Neut % (Auto) 76.0 % 01/15/24 15:32 Lymph % (Auto) 12.3 % 01/15/24 15:32 Brewster % (Auto) 9.9 % 01/15/24 15:32 Eos % (Auto) 0.9 % 01/15/24 15:32 Baso % (Auto) 0.2 % 01/15/24 15:32 Neut # (Auto) 7.12 10^3/uL (1.8-7.7) 01/15/24 15:32 Lymph # (Auto) 1.2 10^3/uL (0.8-4.8) 01/15/24 15:32 Brewster # (Auto) 0.9 10^3/uL (0.2-0.9) 01/15/24 15:32 Eos # (Auto) 0.1 10^3/uL (0.0-0.8) 01/15/24 15:32 Baso # (Auto) 0.0 10^3/uL (0.0-0.1) 01/15/24 15: Nucleated RBC % (auto) 0 % 01/15/24 15: Nucleated RBCs # 0.0 /100WBC 01/15/24 15:32 D-Dimer 1.12 ug/mLFEU (0-0.59) H 01/15/24 15:32 Specimen Type Arterial 01/15/24 15:17 Sample Site Radial, left 01/15/24 15:17 ABG pH 7.36 (7.35-7.45) 01/15/24 15:17 ABG pCO2 55.9 mmHg (35-45) H 01/15/24 15:17 ABG pO2 67.9 mmHg (80.0-100.0) L 01/15/24 15:17 ABG PO2/FiO2 Ratio 0 01/15/24 15:17 ABG HCO3 31.6 mmol/L (22-26) H 01/15/24 15:17 ABG Base Excess 4.8 mmol/L (-2.0-2.0) H 01/15/24 15:17 Wilmer Test Pos 01/15/24 15:17 Hematocrit 38.3 % (42-52) L 01/15/24 15:17 Hgb O2 Saturation 92.4 % (95-100) L 01/15/24 15:17 Carboxyhemoglobin 0.6 %THgb (0.4-20.1) 01/15/24 15:17 Methemoglobin 0.6 % (0.4-1.5) 01/15/24 15:17 Total Hemoglobin 12.5 g/dL (14-18) L 01/15/24 15:17 O2 Delivery Device Nc 01/15/24 15:17 O2 Liters/Min 3.0 % 01/15/24 15:17 FiO2 32.0 % 01/15/24 15:17 Cooking Instructor ID Cak 01/15/24 15:17 Sodium 140 mmol/L (136-145) 01/15/24 15:32 Potassium 4.4 mmol/L (3.5-5.1) 01/15/24 15:32 Chloride 104 mmol/L (98-107) 01/15/24 15:32 Carbon Dioxide 30 mmol/L (22-29) H 01/15/24 15:32 Anion Gap 10.4 (5-19) 01/15/24 15:32 BUN 30 mg/dL (8-23) H 01/15/24 15:32 Creatinine 0.8 mg/dL (0.7-1.2) 01/15/24 15:32 GFR Calculation 97.0 mL/min (90-130) 01/15/24 15:32 Glucose 139 mg/dL (65-115) H 01/15/24 15:32 Calculated Osmolality 298 mOsm/kg (285-295) H 01/15/24 15:32 Calcium 8.3 mg/dL (8.5-10.5) L 01/15/24 15:32 Total Bilirubin 0.2 mg/dL (0.15-1.2) 01/15/24 15:32 AST 18 U/L (0-40) 01/15/24 15:32 ALT 23 U/L (0-41) 01/15/24 15:32 Alkaline Phosphatase 97 U/L (40-130) 01/15/24 15:32 NT-Pro-B Natriuret Pep 385 pg/mL (0-125) H 01/15/24 15:32 Total Protein 7.2 g/dL (6.6-8.7) 01/15/24 15:32 Albumin 3.6 g/dL (3.5-5.2) 01/15/24 15:32 Globulin 3.6 g/dL (1.3-4.6) 01/15/24 15:32 All radiology interpretation(s) finalized by discharge EKG Data EKG 1: I personally reviewed and interpreted this EKG as follows: EKG Interpretation Date: 01/15/24 EKG interpretation time: 15:16 Interpretation: nsr hr [address] or t wave abnormalities qrs 84 qtc 399 Discharge Plan Discharge Patient Disposition: Admitted As Inpatient Clinical Impression: Asthma exacerbation in COPD Condition: Stable Prescriptions: No Action (DME) wheelchair See Rx Instructions .Route .MEDSUPPLY Qty: 1 0RF Rx Instructions: As directed (DME) hsopital bed See Rx Instructions .Route .MEDSUPPLY Qty: 1 0RF Rx Instructions: As directed pantoprazole 40 mg tablet,delayed release (DR/EC) 40 mg PO DAILY Qty: 90 3RF citalopram 40 mg tablet 40 mg PO DAILY Qty: 90 1RF olanzapine [Zyprexa] 2.5 mg tablet 2.5 mg PO DAILY Qty: 90 1RF metoprolol tartrate 25 mg tablet 25 mg PO BID Qty: 180 3RF montelukast 10 mg tablet 10 mg PO DAILY Qty: 90 1RF prednisone 5 mg tablet 5 mg PO DAILY Qty: 30 3RF Yupelri 175 mcg/3 mL solution for nebulization 175 mcg inhalation DAILY Qty: 90 6RF budesonide 0.5 mg/2 mL suspension for nebulization 0.5 mg inhalation BID Qty: 120 6RF formoterol fumarate [Perforomist] 20 mcg/2 mL solution for nebulization 2 ml inhalation BID Qty: 120 6RF primidone 50 mg tablet 100 mg PO BEDTIME Elise Tom 160-9-4.8 mcg/actuation HFA aerosol inhaler See Rx Instructions .ROUTE .COMPLEX Qty: 11 0RF Dose Instruction: Inhale 2 puffs by mouth twice daily Rx Instructions: Inhale 2 puffs by mouth twice daily albuterol sulfate 2.5 mg /3 mL (0.083 %) solution for nebulization 2.5 mg inhalation Q4H PRN (Reason: shortness of breath or wheezing) Qty: 180 1RF (DME) A7005 Nebulizer Set See Rx Instructions .Route .MEDSUPPLY Qty: 1 0RF Rx Instructions: As directed gabapentin 300 mg capsule See Rx Instructions .ROUTE .COMPLEX Qty: 90 0RF Dose Instruction: TAKE 1 CAPSULE BY MOUTH EVERY 8 HOURS Rx Instructions: TAKE 1 CAPSULE BY MOUTH EVERY 8 HOURS Fasenra Pen 30 mg/mL auto-injector 30 mg SUBCUT .q 8 weeks Qty: 1 6RF Rx Instructions: 30 mg injection once every 4 weeks, for first 3 doses.Then Once every 8 weeks isosorbide mononitrate 30 mg tablet extended release 24 hr See Rx Instructions .ROUTE .COMPLEX Qty: 90 1RF Dose Instruction: Take 1 tablet by mouth once daily Rx Instructions: Take 1 tablet by mouth once daily nitroglycerin 0.4 mg tablet, sublingual See Rx Instructions .ROUTE .COMPLEX Qty: 25 0RF Dose Instruction: DISSOLVE ONE TABLET UNDER THE TONGUE EVERY 5 MINUTES NEEDED FOR CHEST PAIN. DO NOT EXCEED A TOTAL OF 3 DOSES IN 15 MINUTES Rx Instructions: DISSOLVE ONE TABLET UNDER THE TONGUE EVERY 5 MINUTES NEEDED FOR CHEST PAIN. DO NOT EXCEED A TOTAL OF 3 DOSES IN 15 MINUTES levalbuterol tartrate 45 mcg/actuation HFA aerosol inhaler 2 inh inhalation Q4H PRN (Reason: shortness of breath or wheezing) Qty: 15 2RF Zithromax Z-Beka 250 mg tablet See Rx Instructions .ROUTE .COMPLEX Qty: 6 0RF Rx Instructions: For 250 mg dose pack: take 500 mg today (day 1), then 250 mg for 4 days (days 2-5) guaifenesin 1,200 mg tablet extended release 12hr 1,200 mg PO BID Qty: 14 0RF atorvastatin 20 mg tablet 20 mg PO QPM Referrals: Shweta Márquez DO [Primary Care Provider] - Coding Level of Care Code ED Geography Head for [place]
--- NOTE | 2024-01-15 15:16 | ECG_ITS ---
[facility] Test Date: 2024-01-15 Pat Name: Elvin Nunn Department: Room: Gender: Male Relay Tester: : 1960 Requested By: Bereket Caruso Order Number: [id number] Tayler MD: Bernie Park M.D. Measurements Intervals [place] Rate: 80 P: 63 SC: 235 QRS: -16 QRSD: 84 T: 49 QT: 363 QTc: 421 Interpretive Statements SINUS RHYTHM WITH FIRST DEGREE AV BLOCK Compared to ECG 01/13/2024 22:02:35 Indeterminate axis no longer present Electronically Signed On 01-15-2024 17:01:06 CDT by Bernie Park M.D. [id number]
[2024-01-15] MEDS: ipratropium-albuterol 3 mL Neb INHALATION (15:18)
[2024-01-15 15:28] LABS: ABG PCO2 55.9 mmHg (35-45); ABG PH Result 7.36 (7.35-7.45); Arterial Blood Gas Hematocrit 38.3 % (42-52); Base Excess ABG 4.8 mmol/L (-2.0-2.0); Blood Gas Allen Test Pos; Blood Gas Operator Identificat CAK; Blood Gas Sample Site Radial, left; Blood Gas Sample Type Arterial; Carboxyhemoglobin 0.6 %THgb (0.4-20.1); HCO3 ABG 31.6 mmol/L (22-26); HGB O2 Sat 92.4 % (95-100); Methemoglobin 0.6 % (0.4-1.5); Oxygen Device NC; PO2 ABG 67.9 mmHg (80.0-100.0); PO2 FiO2 Ratio Arterial Blood 0; Total Hemoglobin 12.5 g/dL (14-18)
[2024-01-15 15:44] LABS: Basophils % 0.2 %; Eosinophils # 0.1 10^3/uL (0.0-0.8); Eosinophils % 0.9 %; Hematocrit 38.5 % (37-53); Lymphocytes # 1.2 10^3/uL (0.8-4.8); Lymphocytes % 12.3 %; Mean Corpuscular HGB Conc 30.6 g/dL (30-55); Mean Corpuscular Hemoglobin 27.7 pg (27-33); Mean Corpuscular Volume 90.4 fl (82-101); Mean Platelet Volume 10.1 fL (7.4-10.4); Monocytes # 0.9 10^3/uL (0.2-0.9); Monocytes % 9.9 %; Neutrophils # 7.12 10^3/uL (1.8-7.7); Nucleated Red Blood Cells % 0 %; Platelet Count 241 10^3/cmm (157-399); Red Blood Count 4.26 10^6/uL (3.85-5.65); Red Cell Distribution Width 15.2 % (12.1-15.1); White Blood Count 9.37 10^3/uL (3.29-11.43)
[2024-01-15 16:13] LABS: Alanine Aminotransferase 23 U/L (0-41); Albumin Level 3.6 g/dL (3.5-5.2); Alkaline Phosphatase 97 U/L (40-130); Anion Gap 10.4 (5-19); Aspartate Amino Transferase 18 U/L (0-40); Blood Urea Nitrogen 30 mg/dL (8-23); Calcium 8.3 mg/dL (8.5-10.5); Carbon Dioxide 30 mmol/L (22-29); Chloride 104 mmol/L (98-107); Creatinine Clr Calc Pharmacy 116.0427; Globulin 3.6 g/dL (1.3-4.6); Glucose 139 mg/dL (65-115); NT Pro B Type Natriuretic Pept 385 pg/mL (0-125); Osmolality Calculated 298 mOsm/kg (285-295); Potassium 4.4 mmol/L (3.5-5.1); Sodium 140 mmol/L (136-145); Total Bilirubin 0.2 mg/dL (0.15-1.2); Total Protein 7.2 g/dL (6.6-8.7)
[2024-01-15 17:00] LABS: D Dimer 1.12 ug/mLFEU (0-0.59)
[2024-01-15 17:27] LABS: Procalcitonin 0.05 ng/mL (0-0.5); Thyroid Stimulating Hormone 1.41 uIU/mL (0.27-4.20)
[2024-01-15] MEDS: atorvastatin 40 mg Tablet 20 MG PO (18:48)
[2024-01-15] MEDS: methylPREDNISolone sod succ 125 mg/2 mL INJ 60 MG IVP (19:20)
[2024-01-15] MEDS: budesonide 0.5 mg/2 mL Neb INHALATION (19:29)
[2024-01-15] MEDS: levalbuterol 0.63 mg/3 mL Neb 0.630000000000000004 MG INHALATION (19:29)
[2024-01-15] MEDS: ipratropium 0.5 mg/2.5 mL Neb INHALATION (19:30)
[2024-01-15] MEDS: gabapentin 300 mg Capsule PO (21:07)
--- NOTE | 2024-01-15 22:47 | P.HP_ITS ---
Providers/Chief Complaint 2 Admitting Physician: Nikita Covington MD Primary Care Provider: Shweta Márquez DO Chief Complaint: sob History of Present Illness Elvin Nunn is a 64 year old male with a past medical history of eosinophilic asthma, typically on 6 L/min home oxygen, history of multiple exacerbations and spite of using Fasenra, Brezteri, prednisone 5 mg p.o. daily. He was recently seen in the emergency room on January 12 for asthma exacerbation, improved after receiving serial nebulizations and IV Solu-Medrol. Chest x-ray was unremarkable. He was discharged home but returns today with acute shortness of breath. He was noted to be in severe distress when EMS first picked him up. He received Solu-Medrol, terbutaline and epinephrine nebulization at home. He was on 10 L/min supplemental O2 initially. Since arrival in the emergency room this has improved however he continued to have wheezing and is currently being admitted in view of severe asthma exacerbation. Review of Systems 2 General: Reports: 10 or more systems reviewed and unremarkable except in HPI and below Const: Denies: fever(s), chills or body aches Eyes: Denies: change in vision, blurry vision or photophobia ENMT: Reports: hoarseness; Denies: throat pain, enlarged tonsils, odynophagia or nasal congestion Card: Denies: chest pain, palpitations, irregular heart rhythm, edema, swelling of feet/ankles, lightheadedness, pre-syncope, dyspnea on exertion or orthopnea Resp: Denies: dyspnea, productive cough, non-productive cough, wheezing, stridor, pain on inspiration, change in phlegm color, hemoptysis or chest congestion GI: Denies: abdominal pain, nausea, vomiting, hematemesis, coffee ground emesis, dysphagia, heartburn, diarrhea, constipation, GI cramping, change in stool character, hematochezia or melena : Denies: flank pain, dysuria, urinary frequency, urinary urgency, urinary hesitancy or hematuria Musc: Denies: neck pain, back pain, extremity pain, joint swelling, joint warmth or deformity Neuro: Denies: headache(s), numbness in extremities, weakness in extremities, sensory changes, difficulty walking, frequent falls, dizziness, vertigo, behavioral changes, Slurred speech present or seizure-like activity Psych: Denies: anxiety, depression, suicidal ideation or homicidal ideation Endo: Denies: polyuria, polydipsia, tired all the time, cold intolerance or hot flashes Justino/Lymph: Denies: easy bruising or easy bleeding Medications/Allergies Home Medications Medication Instructions Recorded Confirmed Last Taken Type hsopital bed #1 ea 08/28/22 11/05/23 Unknown Rx wheelchair #1 ea 08/28/22 11/05/23 Unknown Rx primidone 50 mg tablet 100 mg PO BEDTIME 12/01/22 11/05/23 10/06/23 History levalbuterol tartrate 45 2 inh inhalation Q4H PRN shortness 04/17/23 11/05/23 10/06/23 Rx mcg/actuation aerosol inhaler of breath or wheezing #15 grams budesonide 160 mcg-glycopyr 9 See Rx Instructions .Route 07/16/23 11/05/23 Unknown Rx mcg-formot 4.8 mcg/actuation HFA .COMPLEX #11 grams inhaler (Breztri Aerosphere) budesonide 0.5 mg/2 mL suspension 0.5 mg (2 mL) inhalation BID COPD 10/02/23 11/05/23 Unknown Rx for nebulization #120 mL formoterol fumarate 20 mcg/2 mL 2 ml inhalation BID #120 mL 10/02/23 11/05/23 Unknown Rx solution for nebulization (Perforomist) prednisone 5 mg tablet 5 mg PO DAILY #30 tabs 10/02/23 11/05/23 10/06/23 Rx revefenacin 175 mcg/3 mL solution 175 mcg (3 mL) inhalation DAILY 10/02/23 11/05/23 Unknown Rx for nebulization (Yupelri) #90 mL atorvastatin 20 mg tablet 20 mg PO QPM 10/07/23 11/05/23 10/06/23 History A7005 Nebulizer Set #1 ea 10/13/23 11/05/23 Unknown Rx albuterol sulfate 2.5 mg/3 mL 2.5 mg (3 mL) inhalation Q4H PRN 10/13/23 11/05/23 Unknown Rx (0.083 %) solution for nebulization shortness of breath or wheezing #180 mL citalopram 40 mg tablet 40 mg PO DAILY #90 tabs 11/05/23 11/05/23 Unknown Rx metoprolol tartrate 25 mg tablet 25 mg PO BID #180 tabs 11/05/23 11/05/23 Unknown Rx montelukast 10 mg tablet 10 mg PO DAILY #90 tabs 11/05/23 11/05/23 Unknown Rx olanzapine 2.5 mg tablet (Zyprexa) 2.5 mg PO DAILY #90 tabs 11/05/23 11/05/23 Unknown Rx pantoprazole 40 mg tablet,delayed 40 mg PO DAILY #90 tabs 11/05/23 11/05/23 Unknown Rx release gabapentin 300 mg capsule See Rx Instructions .Route 11/16/23 Unknown Rx .COMPLEX #90 caps benralizumab 30 mg/mL subcutaneous 30 mg SUBCUT .q 8 weeks #1 mL 12/21/23 Unknown Rx auto-injector (Fasenra Pen) isosorbide mononitrate 30 mg See Rx Instructions .Route 01/06/24 Unknown Rx tablet,extended release 24 hr .COMPLEX #90 tabs nitroglycerin 0.4 mg sublingual See Rx Instructions .Route 01/08/24 Unknown Rx tablet .COMPLEX #25 tabs guaifenesin 1,200 mg tablet, 1,200 mg PO BID #14 tabs 01/13/24 Unknown Rx extended release 12 hr azithromycin 250 mg tablet See Rx Instructions PO .COMPLEX #6 01/14/24 Unknown Rx (Zithromax Z-Beka) tabs Allergies Allergy/AdvReac Type Severity Reaction Status Date / Time No Known Allergies Allergy Verified 11/05/23 10:16 PFSH Acute 2 PFSH: Medical History Eosinophilic asthma Degenerative lumbar disc History of compression fracture of spine Left leg DVT 07/2022 Cognitive impairment GERD (gastroesophageal reflux disease) Asthma-COPD overlap syndrome Tremor Chronic neck pain Pulmonary emphysema with fibrosis of lung Surgical History History of cataract extraction bilateral History of tonsillectomy Hx of appendectomy Family History Other Dementia Stroke Denies family history of Diabetes CAD (coronary artery disease) Clotting disorder Hyperlipidemia Psychiatric illness Chronic kidney disease (CKD) Suicide Anesthesia complication Bleeding disorder Family history of premature coronary artery disease Lung disease Cancer Hypertension Social History Smoking and tobacco/nicotine status: former use of tobacco/nicotine Quit status (tobacco/nicotine): has quit using Year quit tobacco: 2017 Former quit date comment: 1pack per month x 2 years Second hand smoke exposure: No Alcohol intake: never Substance/Drug Use: never Vitals/I&O/Wt Last Vital Signs Temp 98.6 F 01/15/24 20:00 Pulse 72 01/15/24 22:06 Resp 18 01/15/24 20:00 BP 122/86 01/15/24 20:00 Pulse Ox 95 01/15/24 20:00 O2 Del Method Nasal Cannula 01/15/24 20:00 O2 Flow Rate 4 01/15/24 19:37 01/15/24 01/15/24 01/15/24 06:59 14:59 22:59 Intake Total 240 / 240 Balance 240 / 240 Weight last 48 hrs Weight 120.519 kg Weight 120.202 kg Physical Exam 2 Narrative: General: No acute distress, AO x3 HEENT: PERRLA, pupils bilaterally equal and reactive, pallors not present Chest: Scattered wheezing to auscultation bilaterally CVS: S1-S2 regular, no murmurs, no tachycardia, no gallops, no rubs Abdomen: Soft, nontender, no organomegaly, bowel sounds present Neuro: No focal deficits, no facial deformity, AO x3, power 5/5 in all limbs Data 01/16/24 02:31 01/16/24 02:31 Other Labs: Launch?Image [address] [address] XRay Report Signed Patient: Elvin Nunn Unit #: [id number] : 1960 Age/Sex: 64 / M ADM Date: 01/15/24 Loc: ER Room/Bed: Attending Dr: Ordering Provider/Ordering MD: Bereket Caruso MD Date of Service: 01/15/24 Procedure(s): XR chest 1V portable [id number] Accession Number(s): [id number] Report Number: [id number]: [id number] Exam: XR chest 1V portable [id number] Date/Time of Exam: 01/15/2024 3:20 PM Reason For Exam: sob Comparison 01/13/2024. The lungs are clear and fully inflated. Normal cardiomediastinal silhouette. Mild bilateral plaque atelectasis. No pleural effusions. IMPRESSION: 1. No acute cardiopulmonary finding. A&P Assessment and plan (1) Severe persistent asthma dependent on systemic steroids: (2) Eosinophilic asthma: Plan Acute on chronic asthma exacerbation Admit in observation to [facility]. DuoNeb inhalation every 6 hours scheduled, discontinuation 0.5 mg twice daily Systemic steroids with methylprednisolone 60 mg IV every 6 hours Patient is currently symptomatically improved after receiving several rounds of nebulizations, terbutaline and epinephrine via EMS however continues to have, persistent wheezing for which we will admit him for monitoring. Chest x-ray without consolidation Continue home medications including atorvastatin, Imdur 30 mg daily, metoprolol 25 mg twice daily, Zyprexa and Protonix. Denies chest pain, EKG without acute ST-T wave changes. Attestations 2 Medical Necessity Statement*: Less than 2 midnight stay is currently anticipated Coding Level of Care Code Acute Code for Chg Fwd Moderate MDM includes number and complexity of problems actively addressed during encounter, amount and/or complexity of data reviewed/ordered and described risk of complication, morbidity or mortality of management as documented Diagnoses Severe persistent asthma dependent on systemic steroids J45.50; Z79.52 Eosinophilic asthma J82.83
[2024-01-16] VITALS (16 sets, daily range): BP systolic 122–151; BP diastolic 73–93; PULSE 62–94; RESP 16–28; TEMP 36.4–36.8; O2SAT 90–98; BMI 41.1; BMI 41.5
[2024-01-16] MEDS: methylPREDNISolone sod succ 125 mg/2 mL INJ 60 MG IVP ×4 (00:24→18:20)
[2024-01-16] MEDS: ipratropium 0.5 mg/2.5 mL Neb INHALATION ×5 (02:05→23:31)
[2024-01-16] MEDS: levalbuterol 0.63 mg/3 mL Neb 0.630000000000000004 MG INHALATION ×6 (02:05→23:30)
[2024-01-16 03:59] LABS: Eosinophils % 0.1 %; Hematocrit 38.1 % (37-53); Lymphocytes # 0.7 10^3/uL (0.8-4.8); Lymphocytes % 9.4 %; Mean Corpuscular HGB Conc 29.9 g/dL (30-55); Mean Corpuscular Hemoglobin 26.9 pg (27-33); Mean Corpuscular Volume 89.9 fl (82-101); Mean Platelet Volume 10.3 fL (7.4-10.4); Monocytes # 0.3 10^3/uL (0.2-0.9); Monocytes % 4.3 %; Neutrophils # 5.89 10^3/uL (1.8-7.7); Neutrophils % 84.9 %; Nucleated Red Blood Cells % 0 %; Platelet Count 243 10^3/cmm (157-399); Red Blood Count 4.24 10^6/uL (3.85-5.65); Red Cell Distribution Width 15.1 % (12.1-15.1); White Blood Count 6.94 10^3/uL (3.29-11.43)
[2024-01-16 04:17] LABS: Alanine Aminotransferase 20 U/L (0-41); Albumin Level 3.7 g/dL (3.5-5.2); Alkaline Phosphatase 96 U/L (40-130); Anion Gap 11.2 (5-19); Aspartate Amino Transferase 16 U/L (0-40); Blood Urea Nitrogen 28 mg/dL (8-23); Calcium 8.7 mg/dL (8.5-10.5); Carbon Dioxide 31 mmol/L (22-29); Chloride 102 mmol/L (98-107); Creatinine Clr Calc Pharmacy 116.2078; Glucose 161 mg/dL (65-115); Osmolality Calculated 299 mOsm/kg (285-295); Phosphorus 2.5 mg/dL (2.5-4.5); Potassium 4.2 mmol/L (3.5-5.1); Sodium 140 mmol/L (136-145); Total Bilirubin 0.2 mg/dL (0.15-1.2); Total Protein 6.7 g/dL (6.6-8.7)
[2024-01-16 04:18] LABS: Chol HDL Ratio 3.27 mg/dL (1.0-5.00); Cholesterol 160 mg/dL (0-200); Estmated Average Glucose 114; HDL Cholesterol 49 mg/dL (60-100); Hemoglobin A1C 5.6 % (4.0-6.0); LDL Cholesterol Calculated 101 mg/dL (50-129); LDL HDL Ratio 2.06 RATIO (0.00-3.22); Triglycerides 52 mg/dL (0-150)
[2024-01-16] MEDS: gabapentin 300 mg Capsule PO ×3 (05:44→21:01)
[2024-01-16] MEDS: morphine 4 mg/mL SDV 1 mL 2 MG IVP (08:31)
[2024-01-16] MEDS: isosorbide mononitrate ER 30 mg Tablet PO (08:47)
[2024-01-16] MEDS: azithromycin 250 mg Tablet PO (08:47)
[2024-01-16] MEDS: citalopram 20 mg Tablet 40 MG PO (08:47)
[2024-01-16] MEDS: OLANZapine 5 mg TABLET 2.5 MG PO (08:47)
[2024-01-16] MEDS: guaiFENesin 600 mg Tablet 1200 MG PO ×2 (08:47→17:05)
[2024-01-16] MEDS: pantoprazole DR 40 mg Tablet PO (08:47)
[2024-01-16] MEDS: metoprolol tartrate 25 mg Tablet PO ×2 (08:49→17:06)
[2024-01-16] MEDS: budesonide 0.5 mg/2 mL Neb INHALATION ×2 (09:13→19:33)
[2024-01-16 09:58] LABS: Add Urine Microscopic? NO; Bilirubin Urine Neg (Negative); Blood Urine Neg (Negative); Charge for UA Resulting for Rev; Glucose Urine UA Norm (Normal); Ketones Urine 1+ (Negative); Leukocyte Esterase Urine Negative (Negative); Nitrate Urine Negative (Negative); Protein Urine Neg (Negative); Specific Gravity, Urine 1.025 (1.005-1.030); Urine Appearance Clear (CLEAR); Urine Color Yellow (Yellow); Urobilinogen Urine Norm (Negative); pH Urine 5 (5-7)
[2024-01-16] MEDS: FUROsemide 10 mg/mL SDV 2mL 20 MG IVP (12:08)
--- NOTE | 2024-01-16 12:57 | P.PN_ITS ---
Subjective 2 Subjective: No acute events overnight. Patient still complaining of shortness of breath. Currently on 5 L of oxygen supplementation. At baseline he is on 6 L. States breathing is improved since yesterday but still harder than his baseline. He uses inhalers around 6-8 times a day at home at baseline. Vitals/I&O/Wt Last Vital Signs Temp 97.6 F 01/16/24 11:05 Pulse 82 01/16/24 12:17 Resp 20 H 01/16/24 11:39 BP 122/75 01/16/24 11:05 Pulse Ox 94 01/16/24 11:39 O2 Del Method Nasal Cannula 01/16/24 11:39 O2 Flow Rate 4 01/16/24 11:39 01/15/24 01/16/24 01/16/24 22:59 06:59 14:59 Intake Total 240 / 240 480 / 720 Output Total 400 / 400 Balance 240 / 240 80 / 320 Weight last 48 hrs Weight 122.697 kg Weight 120.519 kg Weight 120.202 kg Physical Exam 2 Narrative: General: No acute distress, AO x3 HEENT: PERRLA, pupils bilaterally equal and reactive, pallors not present Chest: Scattered wheezing to auscultation bilaterally CVS: S1-S2 regular, no murmurs, no tachycardia, no gallops, no rubs Abdomen: Soft, nontender, no organomegaly, bowel sounds present Neuro: No focal deficits, no facial deformity, AO x3, power 5/5 in all limbs Data 01/16/24 02:31 01/16/24 02:31 Micro: Microbiology 01/15/24 09:47 Bacterial Antigens - Final Urine Kidney 01/16/24 09:47 Legionella Urinary Antigen - Final Unknown Source A&P Assessment and plan (1) Severe persistent asthma dependent on systemic steroids: (2) Eosinophilic asthma: (3) Acute on chronic hypoxic respiratory failure: (4) Pulmonary emphysema with fibrosis of lung: Plan Acute on chronic hypoxic respiratory failure: Acute on chronic asthma exacerbation Chronically on 5 to 6 L of oxygen supplementation Continue with nebulization treatment with ipratropium and Xopenex every 4 hours. Pulmicort twice daily. Solu-Medrol 60 mg IV 6-hour. For now we will continue with current dose at current frequency and try to wean within next 24 hours. Oxygen supplementation keeping saturation over 88%. Wean down accordingly. IV Lasix 20 mg one-time. Appreciate old echocardiogram within the last 6 months. Continue other chronic medications. Full code Protonix OPD prophylaxis Heparin 5000 every 12 hourly for DVT prophylaxis. Attestations 2 Medical Necessity Statement*: Requires further hospitalization for management of acute on chronic hypoxic respiratory failure in setting of COPD and asthma exacerbation Diagnoses Severe persistent asthma dependent on systemic steroids J45.50; Z79.52 Eosinophilic asthma J82.83 Acute on chronic hypoxic respiratory failure J96.21 Pulmonary emphysema with fibrosis of lung J43.9; J84.10
[2024-01-16] MEDS: atorvastatin 40 mg Tablet 20 MG PO (17:05)
[2024-01-17] VITALS (16 sets, daily range): BP systolic 143–157; BP diastolic 68–91; PULSE 51–88; RESP 16–22; TEMP 36.3–36.5; O2SAT 89–98; BMI 41.1
[2024-01-17] MEDS: methylPREDNISolone sod succ 125 mg/2 mL INJ 60 MG IVP ×3 (00:09→17:22)
[2024-01-17] MEDS: ipratropium 0.5 mg/2.5 mL Neb INHALATION ×6 (03:39→23:40)
[2024-01-17] MEDS: levalbuterol 0.63 mg/3 mL Neb 0.630000000000000004 MG INHALATION ×6 (03:40→23:39)
[2024-01-17] MEDS: gabapentin 300 mg Capsule PO ×3 (06:18→21:11)
[2024-01-17] MEDS: OLANZapine 5 mg TABLET 2.5 MG PO (08:15)
[2024-01-17] MEDS: isosorbide mononitrate ER 30 mg Tablet PO (08:15)
[2024-01-17] MEDS: citalopram 20 mg Tablet 40 MG PO (08:15)
[2024-01-17] MEDS: pantoprazole DR 40 mg Tablet PO (08:15)
[2024-01-17] MEDS: guaiFENesin 600 mg Tablet 1200 MG PO ×2 (08:15→17:21)
[2024-01-17] MEDS: azithromycin 250 mg Tablet PO (08:15)
[2024-01-17] MEDS: metoprolol tartrate 25 mg Tablet PO ×2 (08:18→17:23)
[2024-01-17] MEDS: budesonide 0.5 mg/2 mL Neb INHALATION ×2 (08:25→20:13)
[2024-01-17] MEDS: benzonatate 100 mg Capsule PO ×3 (08:54→21:11)
--- NOTE | 2024-01-17 13:22 | P.PN_ITS ---
Subjective 2 Subjective: No acute events overnight. Patient states he is feeling better and improving. Denies any nausea vomiting, headache. Down to 4 L of oxygen supplementation. Breathing as per him has been improving. He did have episode of difficulty in breathing earlier in the morning today but subsided with nebulization treatment. Vitals/I&O/Wt Last Vital Signs Temp 97.5 F L 01/17/24 04:00 Pulse 88 01/17/24 12:00 Resp 18 01/17/24 11:50 BP 143/80 01/17/24 08:00 Pulse Ox 94 01/17/24 11:50 O2 Del Method Nasal Cannula 01/17/24 11:50 O2 Flow Rate 4 01/17/24 11:50 01/16/24 01/17/24 01/17/24 22:59 06:59 14:59 Intake Total 716 / 716 240 / 240 Output Total 650 / 1175 575 / 575 Balance 716 / 191 -650 / -459 -335 / -335 Weight last 48 hrs Weight 122.64 kg Weight 123.831 kg Weight 122.697 kg Weight 120.519 kg Weight 120.202 kg Physical Exam 2 Narrative: General: No acute distress, AO x3 HEENT: PERRLA, pupils bilaterally equal and reactive, pallors not present Chest: Scattered wheezing to auscultation bilaterally CVS: S1-S2 regular, no murmurs, no tachycardia, no gallops, no rubs Abdomen: Soft, nontender, no organomegaly, bowel sounds present Neuro: No focal deficits, no facial deformity, AO x3, power 5/5 in all limbs Data 01/16/24 02:31 01/16/24 02:31 Micro: Microbiology 01/15/24 09:47 Bacterial Antigens - Final Urine Kidney 01/16/24 09:47 Legionella Urinary Antigen - Final Unknown Source A&P Assessment and plan (1) Severe persistent asthma dependent on systemic steroids: (2) Eosinophilic asthma: (3) Acute on chronic hypoxic respiratory failure: (4) Pulmonary emphysema with fibrosis of lung: Plan Acute on chronic hypoxic respiratory failure: Acute on chronic asthma exacerbation Chronically on 5 to 6 L of oxygen supplementation Continue with nebulization treatment with ipratropium and Xopenex every 4 hours. Pulmicort twice daily. Wean Solu-Medrol to 60 mg twice daily. Most likely patient she will be discharged on a very slow oral taper as an outpatient. Currently on 4 L of oxygen supplementation. Wean oxygen supplementation keeping saturation over 88%. Repeat IV Lasix 40 mg one-time today. Appreciate old echocardiogram within the last 6 months. High blood pressure: Goal blood pressure less than 140/90 mmHg. Blood pressure slightly elevated. Patient takes metoprolol 25 mg twice daily at home. Will continue the same and add amlodipine 5 mg oral daily. Continue other chronic medications. Full code Protonix OPD prophylaxis Heparin 5000 every 12 hourly for DVT prophylaxis. Attestations 2 Medical Necessity Statement*: Requires further hospitalization for management of acute on chronic hypoxic respiratory failure in setting of COPD and asthma exacerbation. Patient continues to have bouts of respiratory failure requiring more oxygen and being in distress. Transition to inpatient care. Diagnoses Severe persistent asthma dependent on systemic steroids J45.50; Z79.52 Eosinophilic asthma J82.83 Acute on chronic hypoxic respiratory failure J96.21 Pulmonary emphysema with fibrosis of lung J43.9; J84.10
[2024-01-17] MEDS: morphine 4 mg/mL SDV 1 mL 2 MG IVP (16:17)
[2024-01-17] MEDS: atorvastatin 40 mg Tablet 20 MG PO (17:21)
[2024-01-18] VITALS (17 sets, daily range): BP systolic 111–154; BP diastolic 64–92; PULSE 47–78; RESP 16–20; TEMP 36.3–36.6; O2SAT 90–98; BMI 41.3
[2024-01-18] MEDS: ipratropium 0.5 mg/2.5 mL Neb INHALATION ×5 (03:03→20:22)
[2024-01-18] MEDS: levalbuterol 0.63 mg/3 mL Neb 0.630000000000000004 MG INHALATION ×5 (03:03→20:22)
[2024-01-18] MEDS: gabapentin 300 mg Capsule PO ×3 (05:24→21:22)
[2024-01-18] MEDS: budesonide 0.5 mg/2 mL Neb INHALATION ×2 (08:26→20:22)
[2024-01-18] MEDS: methylPREDNISolone sod succ 125 mg/2 mL INJ 60 MG IVP ×2 (08:57→17:08)
[2024-01-18] MEDS: pantoprazole DR 40 mg Tablet PO (09:23)
[2024-01-18] MEDS: isosorbide mononitrate ER 30 mg Tablet PO (09:23)
[2024-01-18] MEDS: citalopram 20 mg Tablet 40 MG PO (09:23)
[2024-01-18] MEDS: OLANZapine 5 mg TABLET 2.5 MG PO (09:23)
[2024-01-18] MEDS: azithromycin 250 mg Tablet PO (09:23)
[2024-01-18] MEDS: guaiFENesin 600 mg Tablet 1200 MG PO ×2 (09:23→17:27)
--- NOTE | 2024-01-18 09:29 | USCV_ITS ---
Elvin Nunn Age: 64 Gender: M : 1960 Exam Date: 01/18/2024 13:03 Ordering Phys: Bhavin Nicholson MD Technologist: Exam Location[place] [facility] [place] Indication: ? dvt PROCEDURES: The venous duplex Doppler examination of both lower extremities was performed in the standard fashion. The following venous structures were evaluated: common femoral vein, profunda vein, proximal portion of the greater saphenous vein, superficial femoral vein, and the popliteal vein. In addition, the posterior tibial and peroneal trunk were evaluated. FINDINGS: Normal 2-D Doppler and augmentation and compressibility throughout the lower extremity venous structures. Additional imaging through the proximal calf veins also reveals no thrombus. Limited evaluation of the greater saphenous vein is patent with no thrombus. CONCLUSIONS No DVT bilateral lower extremities. Dr. Yolanda Wiley DO (Electronically Signed) Final Date: 18 January 2024 13:53 S
[2024-01-18] MEDS: enoxaparin 40 mg/0.4 mL Syringe SUBCUT (09:34)
[2024-01-18 11:27] LABS: D Dimer 1.11 ug/mLFEU (0-0.59)
[2024-01-18] MEDS: morphine 4 mg/mL SDV 1 mL 2 MG IVP (11:58)
--- NOTE | 2024-01-18 13:52 | PC.SOCIAL ---
IMM Update pg 2 of IMM updated and reviewed w/ patient. Copy provided and copy dated, initialed and placed in chart.
[2024-01-18] MEDS: benzocaine-menthol 78 gm Canister 1 SPRAY TOPICAL (16:38)
[2024-01-18] MEDS: metoprolol tartrate 25 mg Tablet PO (17:26)
[2024-01-18] MEDS: atorvastatin 40 mg Tablet 20 MG PO (17:27)
--- NOTE | 2024-01-18 22:00 | P.PN_ITS ---
Subjective 2 Subjective: He is overall feeling better compared to how he was when he came in but not close to his baseline yet. Quite a bit of cough, wheezing. Not much sputum production. Vitals/I&O/Wt Last Vital Signs Temp 97.7 F 01/18/24 19:54 Pulse 73 01/18/24 20:22 Resp 17 01/18/24 20:22 BP 144/84 01/18/24 19:54 Pulse Ox 92 01/18/24 20:22 O2 Del Method Nasal Cannula 01/18/24 20:22 O2 Flow Rate 4 01/18/24 20:22 01/18/24 01/18/24 01/18/24 06:59 14:59 22:59 Intake Total 360 / 360 480 / 840 Output Total 1025 / 1025 Balance -665 / -665 480 / -185 Weight last 48 hrs Weight 123.377 kg Weight 123.377 kg Weight 122.64 kg Weight 122.64 kg Physical Exam 2 Const: COMMON NORMALS: patient oriented x3 and alert GENERAL APPEARANCE: c ooperative NUTRITIONAL APPEARANCE: obese ORIENTATION/CONSCIOUSNESS: Yes awake HENMT: COMMON NORMALS: oropharynx normal Neck/C-Spine: COMMON NORMALS: no JVD Resp: AUSCULTATION: wheezes and diminished lung sounds Cardio: COMMON NORMALS: no JVD, regular rhythm, S1 normal heart sound present, S2 normal heart sound present and No murmurs present (Cardio) RHYTHM: regular rhythm HEART SOUNDS: S1 normal heart sound present and S2 normal heart sound present GI: COMMON NORMALS: Normal to inspection, nondistended, normoactive bowel sounds present, Soft to palpation and non-tender PALPATION: Yes Soft to palpation Extremity: COMMON NORMALS: no joint enlargement GENERAL: Yes edema (Trace) Neuro: COMMON NORMALS: patient oriented x3 and moves all extremities S ENSORIUM/ORIENTATION: Yes alert Skin: COMMON NORMALS: no rashes or lesions noted GENERAL SKIN EXAM: no rashes or lesions noted Data 01/16/24 02:31 01/16/24 02:31 A&P Assessment and plan (1) Severe persistent asthma dependent on systemic steroids: (2) Eosinophilic asthma: (3) Acute on chronic hypoxic respiratory failure: (4) Pulmonary emphysema with fibrosis of lung: Plan Acute on chronic hypoxic respiratory failure: Acute on chronic asthma exacerbation Without further improvement. Requiring 4 L. Cough, wheezing. Additionally reviewed D-dimer, noted abnormal. Requested repeat D-dimer, discussed with him. Requested venous duplex study. Reviewed blood cultures so far negative. Reviewed bacterial antigens, Legionella antigen, noted negative. Discussed with manager case management. Continue azithromycin, Solu-Medrol, will not wean down for now given persistent decreased air entry, wheezing. At risk of hypoglycemia uremia. Recheck chemistry. Recheck CBC. At risk of QTc prolongation with azithromycin, reviewed QTc was 421 on 01/14. Chronically on 5 to 6 L of oxygen supplementation Continue with nebulization treatment with ipratropium and Xopenex every 4 hours. Pulmicort twice daily. Add prophylactic Lovenox. Elevated D-dimer: On prophylactic Lovenox, assess lower extremity duplex. Most likely patient she will be discharged on a very slow oral taper as an outpatient. Currently on 4 L of oxygen supplementation. Wean oxygen supplementation keeping saturation over 88%. Repeat IV Lasix 40 mg one-time today. High blood pressure: Goal blood pressure less than 140/90 mmHg. Blood pressure slightly elevated. Patient takes metoprolol 25 mg twice daily at home. Will continue the same and add amlodipine 5 mg oral daily. Continue other chronic medications. Full code Protonix OPD prophylaxis Heparin 5000 every 12 hourly for DVT prophylaxis. Attestations 2 Medical Necessity Statement*: Continue admission for assessment of management of acute on chronic respiratory failure. Diagnoses Severe persistent asthma dependent on systemic steroids J45.50; Z79.52 Eosinophilic asthma J82.83 Acute on chronic hypoxic respiratory failure J96.21 Pulmonary emphysema with fibrosis of lung J43.9; J84.10
[2024-01-19] VITALS (13 sets, daily range): BP systolic 125–149; BP diastolic 73–87; PULSE 53–94; RESP 15–24; TEMP 36.1–37; O2SAT 81–98; BMI 41.3
[2024-01-19] MEDS: levalbuterol 0.63 mg/3 mL Neb 0.630000000000000004 MG INHALATION ×6 (00:28→20:35)
[2024-01-19] MEDS: ipratropium 0.5 mg/2.5 mL Neb INHALATION ×6 (00:28→20:35)
[2024-01-19 04:56] LABS: Basophils % 0.1 %; Hematocrit 38.2 % (37-53); Lymphocytes # 1.2 10^3/uL (0.8-4.8); Lymphocytes % 10.7 %; Mean Corpuscular HGB Conc 30.9 g/dL (30-55); Mean Corpuscular Hemoglobin 27.6 pg (27-33); Mean Corpuscular Volume 89.3 fl (82-101); Mean Platelet Volume 9.5 fL (7.4-10.4); Monocytes # 1.1 10^3/uL (0.2-0.9); Monocytes % 10.1 %; Neutrophils # 8.39 10^3/uL (1.8-7.7); Neutrophils % 77.3 %; Nucleated Red Blood Cells % 0 %; Platelet Count 237 10^3/cmm (157-399); Red Blood Count 4.28 10^6/uL (3.85-5.65); Red Cell Distribution Width 15.1 % (12.1-15.1); White Blood Count 10.84 10^3/uL (3.29-11.43)
[2024-01-19 05:17] LABS: Anion Gap 6.3 (5-19); Blood Urea Nitrogen 24 mg/dL (8-23); Calcium 8.3 mg/dL (8.5-10.5); Carbon Dioxide 37 mmol/L (22-29); Chloride 100 mmol/L (98-107); Creatinine Clr Calc Pharmacy 117.6964; Glucose 153 mg/dL (65-115); Osmolality Calculated 295 mOsm/kg (285-295); Potassium 4.3 mmol/L (3.5-5.1); Sodium 139 mmol/L (136-145)
[2024-01-19] MEDS: gabapentin 300 mg Capsule PO ×3 (05:23→21:14)
[2024-01-19] MEDS: budesonide 0.5 mg/2 mL Neb INHALATION ×2 (07:56→20:35)
[2024-01-19] MEDS: isosorbide mononitrate ER 30 mg Tablet PO (08:14)
[2024-01-19] MEDS: guaiFENesin 600 mg Tablet 1200 MG PO ×2 (08:14→17:44)
[2024-01-19] MEDS: azithromycin 250 mg Tablet PO (08:15)
[2024-01-19] MEDS: citalopram 20 mg Tablet 40 MG PO (08:15)
[2024-01-19] MEDS: methylPREDNISolone sod succ 125 mg/2 mL INJ 60 MG IVP ×2 (08:15→17:44)
[2024-01-19] MEDS: OLANZapine 5 mg TABLET 2.5 MG PO (08:15)
[2024-01-19] MEDS: pantoprazole DR 40 mg Tablet PO (08:15)
[2024-01-19] MEDS: metoprolol tartrate 25 mg Tablet PO ×2 (09:21→17:44)
[2024-01-19] MEDS: enoxaparin 40 mg/0.4 mL Syringe SUBCUT (09:21)
--- NOTE | 2024-01-19 10:03 | PC.CHAP ---
Pastoral Care Encounter/Spiritual Assessment Type of Contact [] Declined die casting supervisor visit [] Patient/Family/Request visit [] Outpatient visit [] Follow-up visit [] Physician referral [] Code/Alert [X] Routine visit [] Staff referral [] Actively dying [] Patient sleeping [] Family support [] [] Out of room [] Palliative care [] [] Receiving care in room [] Pre-surgical visit [] Trauma [] Long length of stay [] ICU visit [] Other: Relational/Emotional Strength [X] Patient feels connected with others/family/visitors/staff [X] Distress [] Loneliness/isolation [] Abandonment Spirituality of Patient [X] Person of Tova [] Attends Orthodox of their [place] [X] Believes in Prayer [] Reads Bible or Buddhism materials [] There are Spiritual issues to be addressed 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 [X] Prayer [X] Active listening [X] Non-anxious presence [X] Spiritual/emotional support [] Crisis/trauma care [] Spiritual counseling [] Bereavement support [] Provided bereavement packet [] Provided Bible/devotional materials [] Provided toy/stuffed animal, coloring book to patient or family member [] Provided Communion [] Anointing/[place] [] Salvation [X] Completed spiritual assessment [] Other: Impact on Illness or Injury [] Angry [] Fearful [] Anxious [] Often cries [] Exhaustion [] Unable to work [] Unable to attend adventist [] Unable to walk/stand [] Unable to read [] Unable to drive [] Unable to eat/drink [] Unable to sleep [] Unable to be with family [] Patient intubated [] Other: Summary Time spent with patient 10 MIN
[2024-01-19] MEDS: atorvastatin 40 mg Tablet 20 MG PO (17:44)
[2024-01-19] MEDS: benzocaine-menthol 78 gm Canister 1 SPRAY TOPICAL (21:17)
--- NOTE | 2024-01-19 21:36 | CTR_ITS ---
PROCEDURE INFORMATION: Exam: CTA Chest With Contrast Exam date and time: 01/19/2024 9:59 PM Age: 64 years old Clinical indication: Shortness of breath; Additional info: Assess for pe TECHNIQUE: Imaging protocol: Computed tomographic angiography of the chest with contrast. Exam focused on the arteries. 3D rendering (Not supervised by radiologist): MIP and/or 3D reconstructed images were created by the technologist. Radiation optimization: All CT scans at this facility use at least one of these dose optimization techniques: automated exposure control; mA and/or kV adjustment per patient size (includes targeted exams where dose is matched to clinical indication); or iterative reconstruction. Contrast material: OMNI 350; Contrast volume: 80 ml; Contrast route: INTRAVENOUS (IV); COMPARISON: CT chest wo [facility] [id number] 10/21/2023 8:08 AM RADIATION DOSE METRICS: Total DLP (mGy-cm): 503.4 FINDINGS: Pulmonary arteries: Normal. No pulmonary emboli. Aorta: Unremarkable. No aortic aneurysm. No aortic dissection. Lungs: Mild diffuse bronchial wall thickening changes. Small lower lobe scattered endobronchial secretions. There is relatively linear platelike airspace opacification in the right lower lobe which begins superiorly in the perihilar aspect and extends through the basal segments. Pleural spaces: Unremarkable. No pneumothorax. No pleural effusion. Heart: Unremarkable. No cardiomegaly. No pericardial effusion. Lymph nodes: Unremarkable. No enlarged lymph nodes. Bones/joints: Unremarkable. No acute fracture. Soft tissues: Unremarkable. CT/CT angio chest PE protcl [id number] IMPRESSION: 1. Negative pulmonary artery embolism. 2. Mild bronchial wall thickening which may indicate bronchitis or other bronchial inflammatory process. 3. Subsegmental volume loss changes in the right lower lobe consistent with atelectasis and a small amount of occlusive endobronchial secretions.
--- NOTE | 2024-01-19 21:36 | PM.PN ---
Subjective Subjective: He is not feeling a lot better. He is still having dry cough. Still dyspneic. Vitals/I&O/Wt Last Vital Signs Temp 98.6 F 01/19/24 20:35 Pulse 82 01/19/24 20:36 Resp 22 H 01/19/24 20:36 BP 149/87 01/19/24 20:35 Pulse Ox 92 01/19/24 20:36 O2 Del Method Nasal Cannula 01/19/24 20:36 O2 Flow Rate 4 01/19/24 20:36 01/19/24 01/19/24 01/19/24 06:59 14:59 22:59 Intake Total 480 / 1440 960 / 960 480 / 1440 Balance 480 / 415 960 / 960 480 / 1440 Weight last 48 hrs Weight 123.377 kg Weight 123.377 kg Weight 123.377 kg Weight 123.377 kg Physical Exam Const: COMMON NORMALS: patient oriented x3 and alert GENERAL APPEARANCE: cooperative NUTRITIONAL APPEARANCE: obese ORIENTATION/CONSCIOUSNESS: Yes awake HENMT: COMMON NORMALS: oropharynx normal Neck/C-Spine: COMMON NORMALS: no JVD Resp: AUSCULTATION: wheezes and diminished lung sounds Cardio: COMMON NORMALS: no JVD, regular rhythm, S1 normal heart sound present, S2 normal heart sound present and No murmurs present (Cardio) RHYTHM: regular rhythm HEART SOUNDS: S1 normal heart sound present and S2 normal heart sound present GI: COMMON NORMALS: Normal to inspection, nondistended, normoactive bowel sounds present, Soft to palpation and non-tender PALPATION: Yes Soft to palpation Extremity: COMMON NORMALS: no joint enlargement and no pedal edema GENERAL: Yes edema (Trace) Neuro: COMMON NORMALS: patient oriented x3 and moves all extremities SENSORIUM/ORIENTATION: Yes alert Skin: COMMON NORMALS: no rashes or lesions noted GENERAL SKIN EXAM: no rashes or lesions noted Data 01/19/24 04:48 01/19/24 04:48 A&P Assessment and plan (1) Severe persistent asthma dependent on systemic steroids: (2) Eosinophilic asthma: (3) Acute on chronic hypoxic respiratory failure: (4) Pulmonary emphysema with fibrosis of lung: Plan Acute on chronic hypoxic respiratory failure: Acute on chronic asthma exacerbation Still improving with persistent dry cough, decreased air entry, wheezing. Does not feel any better. Will increase IV steroid to 60 mg every 8 hours. Additionally with abnormal D-dimer, persistent dry cough discussed with him risks, benefits, consideration of additional assessment for PE with CT angiogram chest. He is agreeable. Unfortunately not likely to be able to participate with VQ scan. Discussed with casey saw operator. Reviewed CBC, BMP, venous duplex, D-dimer Discussed with casey saw operator. Continue azithromycin, Solu-Medrol, will not wean down for now given persistent decreased air entry, wheezing. At risk of hypoglycemia uremia. Recheck chemistry. Recheck CBC. At risk of QTc prolongation with azithromycin, reviewed QTc was 421 on 01/14. Follow-up EKG. Chronically on 5 to 6 L of oxygen supplementation Continue with nebulization treatment with ipratropium and Xopenex every 4 hours. Pulmicort twice daily. Add prophylactic Lovenox. Elevated D-dimer: Persistent respiratory symptoms, dry cough. Assess CTA. On prophylactic Lovenox, reviewed lower extremity duplex. Most likely patient she will be discharged on a very slow oral taper as an outpatient. Currently on 4 L of oxygen supplementation. Wean oxygen supplementation keeping saturation over 88%. Repeat IV Lasix 40 mg one-time today. High blood pressure: Goal blood pressure less than 140/90 mmHg. Blood pressure slightly elevated. Patient takes metoprolol 25 mg twice daily at home. Will continue the same and add amlodipine 5 mg oral daily. Continue other chronic medications. Full code Protonix OPD prophylaxis Heparin 5000 every 12 hourly for DVT prophylaxis. Attestations Medical Necessity Statement*: Continue admission for assessment management of acute on chronic respiratory failure, COPD exacerbation, assessment for PE. and High MDM includes amount and/or complexity of data reviewed/ordered [ resulted lab(s)/test(s), ordered lab(s)/test(s) and other healthcare professional discussion] and described risk of complication, morbidity or mortality of management as documented Diagnoses Severe persistent asthma dependent on systemic steroids J45.50; Z79.52 Eosinophilic asthma J82.83 Acute on chronic hypoxic respiratory failure J96.21 Pulmonary emphysema with fibrosis of lung J43.9; J84.10
[2024-01-19] MEDS: iohexol 350 mg/mL 500 mL Btl (per mL) IV (22:02)
--- NOTE | 2024-01-19 22:47 | ECG_ITS ---
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 Measurements Intervals [place] Rate: 55 P: 60 RI: 218 QRS: 7 QRSD: 95 T: 58 QT: 426 QTc: 409 Interpretive Statements SINUS BRADYCARDIA WITH FIRST DEGREE AV BLOCK Compared to ECG 01/15/2024 15:16:46 Sinus rhythm no longer present Electronically Signed On 01-20-2024 18:48:36 CDT by Bernie Park M.D. [id number]
[2024-01-20] VITALS (13 sets, daily range): BP systolic 128–157; BP diastolic 77–91; PULSE 50–74; RESP 16–24; TEMP 36.3–37; O2SAT 89–98
[2024-01-20] MEDS: ipratropium 0.5 mg/2.5 mL Neb INHALATION ×7 (00:45→23:44)
[2024-01-20] MEDS: levalbuterol 0.63 mg/3 mL Neb 0.630000000000000004 MG INHALATION ×7 (00:45→23:44)
[2024-01-20] MEDS: methylPREDNISolone sod succ 125 mg/2 mL INJ 60 MG IVP ×3 (01:41→17:04)
[2024-01-20] MEDS: gabapentin 300 mg Capsule PO ×3 (05:07→21:41)
[2024-01-20 05:12] LABS: Basophils % 0.1 %; Hematocrit 40.2 % (37-53); Lymphocytes % 9.9 %; Mean Corpuscular HGB Conc 31.1 g/dL (30-55); Mean Corpuscular Hemoglobin 27.5 pg (27-33); Mean Corpuscular Volume 88.4 fl (82-101); Monocytes # 0.7 10^3/uL (0.2-0.9); Neutrophils # 8.07 10^3/uL (1.8-7.7); Neutrophils % 81.2 %; Nucleated Red Blood Cells % 0 %; Platelet Count 241 10^3/cmm (157-399); Red Blood Count 4.55 10^6/uL (3.85-5.65); Red Cell Distribution Width 15.1 % (12.1-15.1); White Blood Count 9.95 10^3/uL (3.29-11.43)
[2024-01-20 05:28] LABS: Chloride 100 mmol/L (98-107); Potassium 4.8 mmol/L (3.5-5.1); Sodium 141 mmol/L (136-145)
[2024-01-20 05:53] LABS: Anion Gap 10.8 (5-19); Blood Urea Nitrogen 24 mg/dL (8-23); Calcium 8.5 mg/dL (8.5-10.5); Carbon Dioxide 35 mmol/L (22-29); Creatinine Clr Calc Pharmacy 117.6964; Glucose 136 mg/dL (65-115); Osmolality Calculated 298 mOsm/kg (285-295)
[2024-01-20] MEDS: benzocaine-menthol 78 gm Canister 1 SPRAY TOPICAL ×2 (06:34→21:45)
[2024-01-20] MEDS: budesonide 0.5 mg/2 mL Neb INHALATION ×2 (08:26→19:59)
[2024-01-20] MEDS: guaiFENesin 600 mg Tablet 1200 MG PO ×2 (09:34→17:02)
[2024-01-20] MEDS: isosorbide mononitrate ER 30 mg Tablet PO (09:34)
[2024-01-20] MEDS: OLANZapine 5 mg TABLET 2.5 MG PO (09:34)
[2024-01-20] MEDS: citalopram 20 mg Tablet 40 MG PO (09:34)
[2024-01-20] MEDS: pantoprazole DR 40 mg Tablet PO (09:34)
[2024-01-20] MEDS: metoprolol tartrate 25 mg Tablet PO ×2 (09:34→17:02)
[2024-01-20] MEDS: enoxaparin 40 mg/0.4 mL Syringe SUBCUT (09:35)
--- NOTE | 2024-01-20 12:23 | PC.SOCIAL ---
IMM Update pg 2 of IMM updated and reviewed w/ patient. Copy provided and copy dated, initialed and placed in chart.
[2024-01-20] MEDS: atorvastatin 40 mg Tablet 20 MG PO (17:03)
[2024-01-20] MEDS: acetaminophen 325 mg Tablet 650 MG PO (20:47)
--- NOTE | 2024-01-20 20:58 | P.PN_ITS ---
Subjective 2 Subjective: He today feels he is showing some minor improvement. Has been getting up in the room to ambulate to the restroom. Vitals/I&O/Wt Last Vital Signs Temp 97.7 F 01/20/24 16:24 Pulse 74 01/20/24 20:02 Resp 20 H 01/20/24 20:02 BP 138/79 01/20/24 16:24 Pulse Ox 95 01/20/24 20:02 O2 Del Method Nasal Cannula 01/20/24 20:02 O2 Flow Rate 4 01/20/24 20:02 01/20/24 01/20/24 01/20/24 06:59 14:59 22:59 Intake Total 720 / 2160 1020 / 1020 480 / 1500 Balance 720 / 2160 1020 / 1020 480 / 1500 Weight last 48 hrs Weight 123.422 kg Weight 123.377 kg Weight 123.377 kg Weight 123.377 kg Physical Exam 2 Const: COMMON NORMALS: patient oriented x3 and alert GENERAL APPEARANCE: c ooperative NUTRITIONAL APPEARANCE: obese ORIENTATION/CONSCIOUSNESS: Yes awake HENMT: COMMON NORMALS: oropharynx normal Neck/C-Spine: COMMON NORMALS: no JVD Resp: AUSCULTATION: diminished lung sounds Cardio: COMMON NORMALS: no JVD, regular rhythm, S1 normal heart sound present, S2 normal heart sound present and No murmurs present (Cardio) RHYTHM: regular rhythm HEART SOUNDS: S1 normal heart sound present and S2 normal heart sound present GI: COMMON NORMALS: Normal to inspection, nondistended, normoactive bowel sounds present, Soft to palpation and non-tender PALPATION: Yes Soft to palpation Extremity: COMMON NORMALS: no joint enlargement and no pedal edema GENERAL: Yes edema (Trace) Neuro: COMMON NORMALS: patient oriented x3 and moves all extremities S ENSORIUM/ORIENTATION: Yes alert Skin: COMMON NORMALS: no rashes or lesions noted GENERAL SKIN EXAM: no rashes or lesions noted Data 01/20/24 04:57 01/20/24 04:57 A&P Assessment and plan (1) Severe persistent asthma dependent on systemic steroids: (2) Eosinophilic asthma: (3) Acute on chronic hypoxic respiratory failure: (4) Pulmonary emphysema with fibrosis of lung: Plan Acute on chronic hypoxic respiratory failure: Acute on chronic asthma exacerbation Improving terms of wheezing, still diminished air entry, subjectively feeling somewhat better. Gets up template to the restroom in his room. Continues on high-dose steroid for COPD, 60 mg every 8 hours with Solu-Medrol, will continue for today, but if continues to show improvement/or no further worsening discussed with him consideration of cautious discharge home in the morning with oral steroid taper. Discussed with senior case manager. Continue to monitor due to to risk of hyperglycemia with IV steroids. Reviewed glucose, 136 today. Reviewed vitals, CBC, no leukocytosis. Afebrile. Reviewed BMP. Still improving with persistent dry cough, decreased air entry, wheezing. Does not feel any better. Will increase IV steroid to 60 mg every 8 hours. Additionally with abnormal D-dimer, persistent dry cough discussed with him risks, benefits, consideration of additional assessment for PE with CT angiogram chest. He is agreeable. Unfortunately not likely to be able to participate with VQ scan. Discussed with senior case manager. Reviewed CBC, BMP, venous duplex, D-dimer Discussed with senior case manager. Continue azithromycin, Solu-Medrol, will not wean down for now given persistent decreased air entry, wheezing. At risk of hypoglycemia uremia. Recheck chemistry. Recheck CBC. At risk of QTc prolongation with azithromycin, reviewed QTc was 421 on 01/14. Follow-up EKG. Chronically on 5 to 6 L of oxygen supplementation Continue with nebulization treatment with ipratropium and Xopenex every 4 hours. Pulmicort twice daily. Add prophylactic Lovenox. Elevated D-dimer: Persistent respiratory symptoms, dry cough. Assess CTA. On prophylactic Lovenox, reviewed lower extremity duplex. Most likely patient she will be discharged on a very slow oral taper as an outpatient. Currently on 4 L of oxygen supplementation. Wean oxygen supplementation keeping saturation over 88%. Repeat IV Lasix 40 mg one-time today. High blood pressure: Goal blood pressure less than 140/90 mmHg. Blood pressure slightly elevated. Patient takes metoprolol 25 mg twice daily at home. Will continue the same and add amlodipine 5 mg oral daily. Continue other chronic medications. Full code Protonix OPD prophylaxis Heparin 5000 every 12 hourly for DVT prophylaxis. Attestations 2 Medical Necessity Statement*: Continue admission for assessment management of acute on chronic respiratory failure, COPD exacerbation, assessment for PE. Diagnoses Severe persistent asthma dependent on systemic steroids J45.50; Z79.52 Eosinophilic asthma J82.83 Acute on chronic hypoxic respiratory failure J96.21 Pulmonary emphysema with fibrosis of lung J43.9; J84.10
[2024-01-21] VITALS (10 sets, daily range): BP systolic 128–152; BP diastolic 81–97; PULSE 52–88; RESP 18–20; TEMP 36.4–36.8; O2SAT 86–97; BMI 41.3
[2024-01-21] MEDS: methylPREDNISolone sod succ 125 mg/2 mL INJ 60 MG IVP ×2 (01:45→10:46)
[2024-01-21] MEDS: levalbuterol 0.63 mg/3 mL Neb 0.630000000000000004 MG INHALATION ×3 (03:19→11:08)
[2024-01-21] MEDS: ipratropium 0.5 mg/2.5 mL Neb INHALATION ×3 (03:19→11:08)
[2024-01-21 05:05] LABS: Basophils % 0.2 %; Hematocrit 42.2 % (37-53); Lymphocytes # 1.1 10^3/uL (0.8-4.8); Lymphocytes % 8.3 %; Mean Corpuscular HGB Conc 30.3 g/dL (30-55); Mean Corpuscular Hemoglobin 27.3 pg (27-33); Mean Platelet Volume 10.3 fL (7.4-10.4); Monocytes # 0.9 10^3/uL (0.2-0.9); Monocytes % 7.2 %; Neutrophils # 10.74 10^3/uL (1.8-7.7); Neutrophils % 82.5 %; Nucleated Red Blood Cells % 0 %; Platelet Count 253 10^3/cmm (157-399); Red Blood Count 4.69 10^6/uL (3.85-5.65); Red Cell Distribution Width 15.2 % (12.1-15.1)
[2024-01-21 05:24] LABS: Anion Gap 9.2 (5-19); Blood Urea Nitrogen 25 mg/dL (8-23); Calcium 8.3 mg/dL (8.5-10.5); Carbon Dioxide 35 mmol/L (22-29); Chloride 100 mmol/L (98-107); Creatinine Clr Calc Pharmacy 117.9917; Glucose 138 mg/dL (65-115); Osmolality Calculated 297 mOsm/kg (285-295); Potassium 4.2 mmol/L (3.5-5.1); Sodium 140 mmol/L (136-145)
[2024-01-21] MEDS: gabapentin 300 mg Capsule PO ×2 (05:25→13:54)
[2024-01-21] MEDS: budesonide 0.5 mg/2 mL Neb INHALATION (08:04)
[2024-01-21] MEDS: enoxaparin 40 mg/0.4 mL Syringe SUBCUT (10:46)
[2024-01-21] MEDS: citalopram 20 mg Tablet 40 MG PO (10:47)
[2024-01-21] MEDS: guaiFENesin 600 mg Tablet 1200 MG PO (10:47)
[2024-01-21] MEDS: OLANZapine 5 mg TABLET 2.5 MG PO (10:47)
[2024-01-21] MEDS: metoprolol tartrate 25 mg Tablet PO (10:48)
[2024-01-21] MEDS: pantoprazole DR 40 mg Tablet PO (10:48)
[2024-01-21] MEDS: isosorbide mononitrate ER 30 mg Tablet PO (10:49)
--- NOTE | 2024-01-21 11:56 | P.DS_ITS ---
Discharge Providers Date of Admission: 01/16/24 13:00 Date of Discharge: January 21, 2024 Attending Provider at Admission: Nikita Covington MD Attending Provider at Discharge: Bhavin Nicholson Primary Care Provider: Shweta Márquez DO Diagnoses at Discharge Discharge Diagnosis (1) Severe persistent asthma dependent on systemic steroids: Status: Acute (2) Eosinophilic asthma: Status: Chronic (3) Acute on chronic hypoxic respiratory failure: Status: Acute (4) Pulmonary emphysema with fibrosis of lung: Status: Chronic Reason for Visit Reason for Visit: sob Hospital Course Hospital Course 61-year-old gentleman with asthma-COPD overlap syndrome, previously on 5-6 L of oxygen, although appears may not be needing this much oxygen, came in with shortness of breath, had to use his nebulizer 8-10 times a day, on presentation with severe asthma and COPD exacerbation, started on IV steroids, neb treatments with albuterol, ipratropium, guaifenesin, as needed cough suppressant. This condition has shown gradual improvement, he has continued to saturate well on 4 L nasal cannula and likely does not need 5 to 6 L, his condition overall improved but this prescription of him still with some fluctuation, still some intermittent wheezes, some days are somewhat worse than others, but overall he is doing better. He has been ambulating in his room to the restroom and his mental status remains good. Will discharge with a slow steroid taper, he is also given prescription as prescription with him for DuoNeb as well as cough suppressant and is asked to follow-up with primary provider and pulmonology for reassessment. Additionally with the pollen season, discussed with him to avoid exposure, avoid keeping windows/doors open, consider obtaining an air purifier. He knows to seek medical attention in case of any worsening or new concerning symptoms. Physical Exam Const: COMMON NORMALS: patient oriented x3 and alert GENERAL APPEARANCE: cooperative NUTRITIONAL APPEARANCE: obese ORIENTATION/CONSCIOUSNESS: Yes awake HENMT: COMMON NORMALS: oropharynx normal Neck/C-Spine: COMMON NORMALS: no JVD Resp: AUSCULTATION: wheezes (mild) and diminished lung sounds Cardio: COMMON NORMALS: no JVD, regular rhythm, S1 normal heart sound present, S2 normal heart sound present and No murmurs present (Cardio) RHYTHM: regular rhythm HEART SOUNDS: S1 normal heart sound present and S2 normal heart sound present GI: COMMON NORMALS: Normal to inspection, nondistended, normoactive bowel sounds present, Soft to palpation and non-tender PALPATION: Yes Soft to palpation Extremity: COMMON NORMALS: no joint enlargement and no pedal edema GENERAL: Yes edema (Trace) Neuro: COMMON NORMALS: patient oriented x3 and moves all extremities SENSORIUM/ORIENTATION: Yes alert Skin: COMMON NORMALS: no rashes or lesions noted GENERAL SKIN EXAM: no rashes or lesions noted Discharge Data Studies Completed and Pending Completed Studies During Hospitalization Category Date Time Status CTA chest [CT angio chest PE protcl [id number]] Routine Cat Scan 01/19/24 21:36 Completed XR chest 1V portable [id number] Stat Exams 01/15/24 15:08 [place] [id number] Routine Ultrasound 01/18/24 09:29 Completed Pending at discharge Category Date Time Status Complete Blood Count w/Auto AM LABS Lab 01/22/24 04:00 Ordered Radiology Impressions Chest CTA 01/19/24 21:36 IMPRESSION: 1. Negative pulmonary artery embolism. 2. Mild bronchial wall thickening which may indicate bronchitis or other bronchial inflammatory process. 3. Subsegmental volume loss changes in the right lower lobe consistent with atelectasis and a small amount of occlusive endobronchial secretions. Laboratory Results WBC 13.00 10^3/uL (3.29-11.43) H 01/21/24 04:30 RBC 4.69 10^6/uL (3.85-5.65) 01/21/24 04:30 Hgb 12.80 g/dL (11.27-16.99) 01/21/24 04:30 Hct 42.2 % (37-53) 01/21/24 04:30 MCV 90.0 fl (82-101) 01/21/24 04:30 MCH 27.3 pg (27-33) 01/21/24 04:30 MCHC 30.3 g/dL (30-55) 01/21/24 04:30 RDW 15.2 % (12.1-15.1) H 01/21/24 04:30 Plt Count 253 10^3/cmm (157-399) 01/21/24 04:30 MPV 10.3 fL (7.4-10.4) 01/21/24 04:30 Neut % (Auto) 82.5 % 01/21/24 04:30 Lymph % (Auto) 8.3 % 01/21/24 04:30 [place] % (Auto) 7.2 % 01/21/24 04:30 Eos % (Auto) 0.0 % 01/21/24 04:30 Baso % (Auto) 0.2 % 01/21/24 04:30 Neut # (Auto) 10.74 10^3/uL (1.8-7.7) H 01/21/24 04:30 Lymph # (Auto) 1.1 10^3/uL (0.8-4.8) 01/21/24 04:30 [place] # (Auto) 0.9 10^3/uL (0.2-0.9) 01/21/24 04:30 Eos # (Auto) 0.0 10^3/uL (0.0-0.8) 01/21/24 04:30 Baso # (Auto) 0.0 10^3/uL (0.0-0.1) 01/21/24 04:30 Nucleated RBC % (auto) 0 % 01/21/24 04:30 Nucleated RBCs # 0.0 /100WBC 01/21/24 04:30 D-Dimer 1.11 ug/mLFEU (0-0.59) H 01/18/24 10:45 Specimen Type Arterial 01/15/24 15:17 Sample Site Radial, left 01/15/24 15:17 ABG pH 7.36 (7.35-7.45) 01/15/24 15:17 ABG pCO2 55.9 mmHg (35-45) H 01/15/24 15:17 ABG pO2 67.9 mmHg (80.0-100.0) L 01/15/24 15:17 ABG PO2/FiO2 Ratio 0 01/15/24 15:17 ABG HCO3 31.6 mmol/L (22-26) H 01/15/24 15:17 ABG Base Excess 4.8 mmol/L (-2.0-2.0) H 01/15/24 15:17 Wilmer Test Pos 01/15/24 15:17 Hematocrit 38.3 % (42-52) L 01/15/24 15:17 Hgb O2 Saturation 92.4 % (95-100) L 01/15/24 15:17 Carboxyhemoglobin 0.6 %THgb (0.4-20.1) 01/15/24 15:17 Methemoglobin 0.6 % (0.4-1.5) 01/15/24 15:17 Total Hemoglobin 12.5 g/dL (14-18) L 01/15/24 15:17 O2 Delivery Device Nc 01/15/24 15:17 O2 Liters/Min 3.0 % 01/15/24 15:17 FiO2 32.0 % 01/15/24 15:17 Casting Technician ID Cak 01/15/24 15:17 Sodium 140 mmol/L (136-145) 01/21/24 04:30 Potassium 4.2 mmol/L (3.5-5.1) 01/21/24 04:30 Chloride 100 mmol/L (98-107) 01/21/24 04:30 Carbon Dioxide 35 mmol/L (22-29) H 01/21/24 04:30 Anion Gap 9.2 (5-19) 01/21/24 04:30 BUN 25 mg/dL (8-23) H 01/21/24 04:30 Creatinine 0.8 mg/dL (0.7-1.2) 01/21/24 04:30 GFR Calculation 97.0 mL/min (90-130) 01/21/24 04:30 Glucose 138 mg/dL (65-115) H 01/21/24 04:30 Estimat Average Glucose 114 01/16/24 02:31 Hemoglobin A1c 5.6 % (4.0-6.0) 01/16/24 02:31 Calculated Osmolality 297 mOsm/kg (285-295) H 01/21/24 04:30 Calcium 8.3 mg/dL (8.5-10.5) L 01/21/24 04:30 Phosphorus 2.5 mg/dL (2.5-4.5) 01/16/24 02:31 Magnesium 2.0 mg/dL (1.7-2.3) 01/16/24 02:31 Total Bilirubin 0.2 mg/dL (0.15-1.2) 01/16/24 02:31 AST 16 U/L (0-40) 01/16/24 02:31 ALT 20 U/L (0-41) 01/16/24 02:31 Alkaline Phosphatase 96 U/L (40-130) 01/16/24 02:31 NT-Pro-B Natriuret Pep 385 pg/mL (0-125) H 01/15/24 15:32 Total Protein 6.7 g/dL (6.6-8.7) 01/16/24 02:31 Albumin 3.7 g/dL (3.5-5.2) 01/16/24 02:31 Globulin 3.0 g/dL (1.3-4.6) 01/16/24 02:31 Triglycerides 52 mg/dL (0-150) 01/16/24 02:31 Cholesterol 160 mg/dL (0-200) 01/16/24 02:31 LDL Cholesterol, Calc 101 mg/dL (50-129) 01/16/24 02:31 HDL Cholesterol 49 mg/dL (60-100) L 01/16/24 02:31 LDL/HDL Ratio 2.06 RATIO (0.00-3.22) 01/16/24 02:31 Cholesterol/HDL Ratio 3.27 mg/dL (1.0-5.00) 01/16/24 02:31 Procalcitonin 0.05 ng/mL (0-0.5) 01/15/24 15:32 TSH 1.41 uIU/mL (0.27-4.20) 01/15/24 15:32 Urine Color Yellow (Yellow) 01/15/24 09:47 Urine Appearance Clear (CLEAR) 01/15/24 09:47 Urine pH 5 (5-7) 01/15/24 09:47 Ur Specific [place] 1.025 (1.005-1.030) 01/15/24 09:47 Urine Protein Neg (Negative) 01/15/24 09:47 Urine Glucose (UA) Norm (Normal) 01/15/24 09:47 Urine Ketones 1+ (Negative) H 01/15/24 09:47 Urine Blood Neg (Negative) 01/15/24 09:47 Urine Nitrate Negative (Negative) 01/15/24 09:47 Urine Bilirubin Neg (Negative) 01/15/24 09:47 Urine Urobilinogen Norm mg/dL (Negative) 01/15/24 09:47 Ur Leukocyte Esterase Negative (Negative) 01/15/24 09:47 Vitals Last Vital Signs Temp 97.5 F L 01/21/24 08:00 Pulse 78 01/21/24 11:13 Resp 20 H 01/21/24 11:09 BP 152/97 01/21/24 08:00 Pulse Ox 92 01/21/24 11:09 O2 Del Method Nasal Cannula 01/21/24 11:09 O2 Flow Rate 4 01/21/24 11:09 Discharge Plan Discharge Patient Disposition: Home Condition: Stable Prescriptions: New prednisone 20 mg tablet See Rx Instructions .ROUTE .COMPLEX Qty: 20 0RF Rx Instructions: 3 tab daily for 3 days, then 2 tab for 3 days, then 1 tab for 3 days, then 1/2 tab for 4 days. ipratropium-albuterol 0.5 mg-3 mg(2.5 mg base)/3 mL solution for nebulization 3 ml inhalation Q6H Qty: 180 0RF benzonatate 200 mg capsule 200 mg PO TID PRN (Reason: cough) Qty: 60 0RF Continued (DME) wheelchair See Rx Instructions .Route .MEDSUPPLY Qty: 1 0RF Rx Instructions: As directed (DME) hsopital bed See Rx Instructions .Route .MEDSUPPLY Qty: 1 0RF Rx Instructions: As directed pantoprazole 40 mg tablet,delayed release (DR/EC) 40 mg PO DAILY Qty: 90 3RF citalopram 40 mg tablet 40 mg PO DAILY Qty: 90 1RF olanzapine [Zyprexa] 2.5 mg tablet 2.5 mg PO DAILY Qty: 90 1RF metoprolol tartrate 25 mg tablet 25 mg PO BID Qty: 180 3RF montelukast 10 mg tablet 10 mg PO DAILY Qty: 90 1RF primidone 50 mg tablet 100 mg PO BEDTIME (DME) A7005 Nebulizer Set See Rx Instructions .Route .MEDSUPPLY Qty: 1 0RF Rx Instructions: As directed gabapentin 300 mg capsule See Rx Instructions .ROUTE .COMPLEX Qty: 90 0RF Dose Instruction: TAKE 1 CAPSULE BY MOUTH EVERY 8 HOURS Rx Instructions: TAKE 1 CAPSULE BY MOUTH EVERY 8 HOURS NEEDED. Fasenra Pen 30 mg/mL auto-injector 30 mg SUBCUT .q 8 weeks Qty: 1 6RF Rx Instructions: 30 mg injection once every 4 weeks, for first 3 doses.Then Once every 8 weeks isosorbide mononitrate 30 mg tablet extended release 24 hr See Rx Instructions .ROUTE .COMPLEX Qty: 90 1RF Dose Instruction: Take 1 tablet by mouth once daily Rx Instructions: Take 1 tablet by mouth once daily nitroglycerin 0.4 mg tablet, sublingual See Rx Instructions .ROUTE .COMPLEX Qty: 25 0RF Dose Instruction: DISSOLVE ONE TABLET UNDER THE TONGUE EVERY 5 MINUTES NEEDED FOR CHEST PAIN. DO NOT EXCEED A TOTAL OF 3 DOSES IN 15 MINUTES Rx Instructions: DISSOLVE ONE TABLET UNDER THE TONGUE EVERY 5 MINUTES NEEDED FOR CHEST PAIN. DO NOT EXCEED A TOTAL OF 3 DOSES IN 15 MINUTES levalbuterol tartrate 45 mcg/actuation HFA aerosol inhaler 2 inh inhalation Q4H PRN (Reason: shortness of breath or wheezing) Qty: 15 2RF azithromycin [Zithromax Z-Beka] 250 mg tablet See Rx Instructions .ROUTE .COMPLEX Qty: 6 0RF Rx Instructions: For 250 mg dose pack: take 500 mg today (day 1), then 250 mg for 4 days (days 2-5) prednisone 5 mg tablet 5 mg PO DAILY PRN (Reason: COPD) Breztri Aerosphere 160-9-4.8 mcg/actuation HFA aerosol inhaler 2 inh inhalation BID atorvastatin 20 mg tablet 20 mg PO QPM Discontinued albuterol sulfate 2.5 mg /3 mL (0.083 %) solution for nebulization 2.5 mg inhalation Q4H PRN (Reason: shortness of breath or wheezing) Qty: 180 1RF Discharge Orders: Discharge Order (Routine); Ordered 01/21/24 Ordered By: Bhavin Nicholson Referrals: Mark Fortune MD [Physician] - 02/01/24 11:00 am Shweta Márquez DO [Primary Care Provider] - 01/29/24 1:00 pm () Discharge Diet: Cardiac Discharge Activity: Oxygen as instructed Patient Instructions: Prednisone (By mouth), Asthma (DC), COPD (Chronic Obstructive Pulmonary Disease) (DC), COPD Stoplight Activity Restrictions/Additional Instructions: Complete steroid taper. Continue breathing meds. Follow-up with your primary provider and lung specialist to reassess after episode of asthma and COPD exacerbation. Seek medical attention in case of any worsening or new concerning symptoms. Discharge Attestations Time Spent in Discharge Care*: greater than 30 min Quality Metrics Clinical Quality Measures [ No reported AMI, CVA or VTE this stay] Coding Level of Care Code 60777 Total time (in minutes) for Discharge: 40 Diagnoses Severe persistent asthma dependent on systemic steroids J45.50; Z79.52 Eosinophilic asthma J82.83 Acute on chronic hypoxic respiratory failure J96.21 Pulmonary emphysema with fibrosis of lung J43.9; J84.10
== END 2024-01-21 14:25 | disposition home or self-care (01) | DRG 202 ==
LOC: ER 17:15 → MEDSURG 17:21
PROVIDERS: Admitting Provider Student in an Organized Health Care Education/Training Program; Emergency Provider Emergency Medicine; PCP Family Medicine; Visit Provider Internal Medicine
DX: J45.51 Severe persistent asthma with (acute) exacerbation (principal); J96.21 Acute and chronic respiratory failure with hypoxia; J44.89 Other specified chronic obstructive pulmonary disease; M51.36 Other intervertebral disc degeneration, lumbar region; K21.9 Gastro-esophageal reflux disease without esophagitis; G89.29 Other chronic pain; M54.2 Cervicalgia; J43.9 Emphysema, unspecified; Z99.81 Dependence on supplemental oxygen; Z99.3 Dependence on wheelchair; Z86.718 Personal history of other venous thrombosis and embolism; Z87.891 Personal history of nicotine dependence
CPT/HCPCS: 36415; 36600; 71045; 71275; 80048; 80053; 80061; 81003; 82805; 83036; 83735; 83880; 84100; 84145; 84443; 85025; 85378; 86403; 87449; 93005; 93970; 94640; 94664; 94760; 96372; 96374; 99285; G0378; J1650; J1940; J2270; J2919; J7614; J7626; J7644; Q0144; Q9967

== ENCOUNTER 2024-01-30 16:53 | Inpatient (IN) | payer MEDICARE, MEDICAID, SELFPAY ==
[2024-01-30] VITALS (8 sets, daily range): BP systolic 110–140; BP diastolic 22–100; PULSE 61–133; RESP 14–29; TEMP 36.5–37; O2SAT 90–98
--- NOTE | 2024-01-30 17:00 | XRR_ITS ---
PROCEDURE INFORMATION: Exam: XR Chest Exam date and time: 01/30/2024 5:14 PM Age: 64 years old Clinical indication: Shortness of breath TECHNIQUE: Imaging protocol: Radiologic exam of the chest. Views: 1 view. COMPARISON: CT angio chest PE protcl [id number] 01/19/2024 9:59 PM FINDINGS: Lungs: Unremarkable. No consolidation. Pleural spaces: Unremarkable. No pleural effusion. No pneumothorax. Heart/Mediastinum: Unremarkable. No cardiomegaly. Bones/joints: Unremarkable. XR/XR chest 1V [id number] IMPRESSION: No acute findings.
--- NOTE | 2024-01-30 17:01 | ECG_ITS ---
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 Measurements Intervals [place] Rate: 84 P: 54 CO: 290 QRS: -2 QRSD: 77 T: 52 QT: 333 QTc: 394 Interpretive Statements SINUS RHYTHM WITH FIRST DEGREE AV BLOCK Compared to ECG 01/19/2024 22:47:37 Sinus bradycardia no longer present Electronically Signed On 01-31-2024 12:05:20 CDT by Kedar Coyle M.D. [id number]
--- NOTE | 2024-01-30 17:01 | W.ED.SOB ---
HPI - SOB/Dyspnea General: Chief Complaint: Shortness of Breath/Dyspnea Stated Complaint: SOB Time Seen by Provider: 01/30/24 16:55 History of Present Illness: HPI Narrative: 64-year-old man with a history of COPD and chronic hypoxemic respiratory failure on 4 L nasal cannula at all times at home who presents to the emergency room by ambulance with worsening shortness of breath for about 3 days. He said he was satting in the mid 70s on his home 4 L. He had some cough. No known fevers. No chest pain. No altered mental status. No focal motor deficits. He received Solu-Medrol and 4 updrafts and is now on a BiPAP and says he feels quite a bit better. Review of Systems Narrative: Constitutional symptoms: Negative except as documented in HPI. Skin symptoms: Negative except as documented in HPI. Eye symptoms: Negative except as documented in HPI. ENMT symptoms: Negative except as documented in HPI. Respiratory symptoms: Negative except as documented in HPI. Cardiovascular symptoms: Negative except as documented in HPI. Gastrointestinal symptoms: Negative except as documented in HPI. Genitourinary symptoms: Negative except as documented in HPI. Musculoskeletal symptoms: Negative except as documented in HPI. Neurologic symptoms: Negative except as documented in HPI. Psychiatric symptoms: Negative except as documented in HPI. Endocrine symptoms: Negative except as documented in HPI. [facility] ED PFSH: Medical History (Updated 01/30/24 @ 18:45 by Esmer Colon MD) Sleep walking Parasomnia Eosinophilic asthma Degenerative lumbar disc History of compression fracture of spine Left leg DVT 07/2022 Cognitive impairment GERD (gastroesophageal reflux disease) Asthma-COPD overlap syndrome Tremor Chronic neck pain Pulmonary emphysema with fibrosis of lung Surgical History History of cataract extraction bilateral History of tonsillectomy Hx of appendectomy Family History Other Dementia Stroke Denies family history of Diabetes CAD (coronary artery disease) Clotting disorder Hyperlipidemia Psychiatric illness Chronic kidney disease (CKD) Suicide Anesthesia complication Bleeding disorder Family history of premature coronary artery disease Lung disease Cancer Hypertension Social History Smoking and tobacco/nicotine status: former use of tobacco/nicotine Quit status (tobacco/nicotine): has quit using Year quit tobacco: 2018 Former quit date comment: 1pack per month x 2 years Second hand smoke exposure: No Alcohol intake: never Substance/Drug Use: never Physical Exam Narrative: EXAM NARRATIVE: General: Alert, moderate distress. Skin: Warm, dry. Head: Normocephalic, atraumatic. Neck: Supple, trachea midline. Eye: Extraocular movements are intact. Ears, nose, mouth and throat: Oral mucosa moist. Cardiovascular: Regular rate and rhythm, Normal peripheral perfusion. Respiratory: coarse, scattered wheeze, moderate increased wob. tachypnea, prolonged expiratory phase. breath sounds are equal, Symmetrical chest wall expansion. Gastrointestinal: Soft, Nontender, Non distended, Normal bowel sounds. Musculoskeletal: Normal ROM, no deformity. Neurological: Alert and oriented to person, place, time, and situation, No focal neurological deficit observed. Psychiatric: Cooperative, appropriate mood & affect. Course Vital Signs: Vital signs: Vital Signs Temperature 98.6 F 01/30/24 16:55 Pulse Rate 133 H 01/30/24 16:55 Respiratory Rate 20 H 01/30/24 16:55 Blood Pressure 115/97 01/30/24 16:55 Pulse Oximetry 98 01/30/24 17:40 Oxygen Delivery Me thod Nasal Cannula 01/30/24 16:55 Oxygen Flow Rate 4 01/30/24 16:55 Fraction of Inspir ed Oxygen 40 01/30/24 17:40 MDM - SOB/Dyspnea Medical Decision Making Differential diagnosis for patient with shortness of breath includes but is not limited to and based on the above HPI, review of systems and physical exam: Pneumonia. Bronchitis. Asthma or COPD with acute exacerbation. Acute coronary syndrome / ND. Pulmonary embolism. Anxiety. Congestive heart failure. Viral infections including influenza and Covid-19. Atrial fibrillation. Anxiety. Pleural effusion. Pneumothorax. Workup: Lab work, chest X-ray and EKG ordered to evaluate, rule in and rule out above pathologies Lab Review: Laboratory results were reviewed and interpreted by myself the emergency room physician. White count is 8. Hemoglobin is 12. BUN and creatinine are 21 and 1.0. His bicarb is 31 which shows he has had some compensation for his hypercapnic respiratory failure but given his acidosis and his symptoms he is decompensated at this time. Flu and COVID are negative AB.35/60/85 with an O2 sat of 98% on 100% nonrebreather. EKG: Time 1720 rate 84 normal sinus rhythm, No ST-T changes, no ectopy, first degree AV Block, EP Interpretation. This was reviewed and interpreted by myself the ER physician at 1725. Chest x-ray: No acute process. No infiltrate. No pneumothorax. No cardiomegaly. This was reviewed and interpreted by myself the ER physician. I reviewed the patient's medical record. Reexamination: Patient is stable on a BiPAP. Still lungs are fairly tight with some scattered wheeze. He does appear quite a bit more comfortable on the BiPAP though. No altered mental status. No focal motor deficits. Assessment and plan: Asthma/COPD exacerbation Hypercapnic respiratory failure Acute on chronic hypoxemic respiratory failure -Patient has received 125 mg of IV Solu-Medrol, 4 updrafts and has been placed on BiPAP. -I discussed the patient with the hospitalist on-call who is admitting the patient. - Discussed findings and plan with patient. Answered any questions. - All laboratory values were reviewed and interpreted personally by myself, the ER physician - All imaging was reviewed and interpreted personally by myself, the ER physician. - Evaluation and treatment of this problem were appropriate in the emergency setting -I spent a total of >35 minutes of critical care time managing the patient, independent of any other practitioner. -The time involved in the performance of separately reportable procedures was not counted towards critical care time. Lab Data 01/30/24 17:09 01/30/24 17:09 Labs/Radiology: Radiology Impressions Chest X-Ray 01/30/24 17:00 IMPRESSION: No acute findings. Laboratory Results WBC 8.81 10^3/uL (3.29-11.43) 01/30/24 17:09 RBC 4.41 10^6/uL (3.85-5.65) 01/30/24 17:09 Hgb 12.20 g/dL (11.27-16.99) 01/30/24 17:09 Hct 39.9 % (37-53) 01/30/24 17:09 MCV 90.5 fl (82-101) 01/30/24 17:09 MCH 27.7 pg (27-33) 01/30/24 17: MCHC 30.6 g/dL (30-55) 01/30/24 17:09 RDW 14.9 % (12.1-15.1) 01/30/24 17:09 Plt Count 189 10^3/cmm (157-399) 01/30/24 17:09 MPV 9.8 fL (7.4-10.4) 01/30/24 17:09 Neut % (Auto) 68.4 % 01/30/24 17:09 Lymph % (Auto) 13.8 % 01/30/24 17:09 [place] % (Auto) 13.7 % 01/30/24 17:09 Eos % (Auto) 3.6 % 01/30/24 17:09 Baso % (Auto) 0.2 % 01/30/24 17:09 Neut # (Auto) 6.01 10^3/uL (1.8-7.7) 01/30/24 17:09 Lymph # (Auto) 1.2 10^3/uL (0.8-4.8) 01/30/24 17:09 [place] # (Auto) 1.2 10^3/uL (0.2-0.9) H 01/30/24 17:09 Eos # (Auto) 0.3 10^3/uL (0.0-0.8) 01/30/24 17:09 Baso # (Auto) 0.0 10^3/uL (0.0-0.1) 01/30/24 17:09 Nucleated RBC % (auto) 0 % 01/30/24 17:09 Nucleated RBCs # 0.0 /100WBC 01/30/24 17:09 Specimen Type Arterial 01/30/24 17:10 Sample Site Brachial, right 01/30/24 17:10 ABG pH 7.36 (7.35-7.45) 01/30/24 17:10 ABG pCO2 60.2 mmHg (35-45) H* 01/30/24 17:10 ABG pO2 84.7 mmHg (80.0-100.0) 01/30/24 17:10 ABG PO2/FiO2 Ratio 0 01/30/24 17:10 ABG HCO3 33.6 mmol/L (22-26) H 01/30/24 17:10 ABG O2 Saturation 97.8 01/30/24 17:10 ABG Base Excess 6.4 mmol/L (-2.0-2.0) H 01/30/24 17:10 Wilmer Test N/a 01/30/24 17:10 A-a O2 Gradient 12.7 mmHg (5-10) H 01/30/24 17:10 Hematocrit 37.4 % (42-52) L 01/30/24 17:10 Hgb O2 Saturation 95.8 % (95-100) 01/30/24 17:10 Carboxyhemoglobin 1.4 %THgb (0.4-20.1) 01/30/24 17:10 Methemoglobin 0.7 % (0.4-1.5) 01/30/24 17:10 Total Hemoglobin 12.2 g/dL (14-18) L 01/30/24 17:10 Sodium 142.0 mmol/L (131-143) 01/30/24 17:10 Potassium 4.0 mmol/L (3.5-5.0) 01/30/24 17:10 Glucose 115.0 mg/dL (70-115) 01/30/24 17:10 Ionized Calcium 1.2 mmol/L (1.1-1.4) 01/30/24 17:10 O2 Delivery Device Nc 01/30/24 17:10 O2 Liters/Min 4.0 % 01/30/24 17:10 FiO2 36.0 % 01/30/24 17:10 Contracting Engineer ID [id number] 01/30/24 17:10 Sodium 142 mmol/L (136-145) 01/30/24 17:09 Potassium 4.2 mmol/L (3.5-5.1) 01/30/24 17:09 Chloride 104 mmol/L (98-107) 01/30/24 17:09 Carbon Dioxide 31 mmol/L (22-29) H 01/30/24 17:09 Anion Gap 11.2 (5-19) 01/30/24 17:09 BUN 21 mg/dL (8-23) 01/30/24 17:09 Creatinine 1.0 mg/dL (0.7-1.2) 01/30/24 17:09 GFR Calculation 75.0 mL/min (90-130) L 01/30/24 17:09 Glucose 122 mg/dL (65-115) H 01/30/24 17:09 Calculated Osmolality 298 mOsm/kg (285-295) H 01/30/24 17:09 Lactic Acid 1.2 mmol/L (0.5-2.2) 01/30/24 17:09 Calcium 8.0 mg/dL (8.5-10.5) L 01/30/24 17:09 Total Bilirubin 0.2 mg/dL (0.15-1.2) 01/30/24 17:09 AST 17 U/L (0-40) 01/30/24 17:09 ALT 27 U/L (0-41) 01/30/24 17:09 Alkaline Phosphatase 98 U/L (40-130) 01/30/24 17:09 Troponin T Baseline 15 ng/L (0-15) 01/30/24 17:09 C-Reactive Protein 49.5 mg/L (0.0-4.9) H 01/30/24 17:09 NT-Pro-B Natriuret Pep 179 pg/mL (0-125) H 01/30/24 17:09 Total Protein 6.3 g/dL (6.6-8.7) L 01/30/24 17:09 Albumin 3.4 g/dL (3.5-5.2) L 01/30/24 17:09 Globulin 2.9 g/dL (1.3-4.6) 01/30/24 17:09 Influenza Type A Ag negative (Negative) 01/30/24 17:20 Influenza Type B Ag negative (Negative) 01/30/24 17:20 SARS-CoV-2 Ag (Rapid) negative (Negative) 01/30/24 17:20 All radiology interpretation(s) finalized by discharge Discharge Plan Discharge Patient Disposition: Admitted As Inpatient Clinical Impression: Acute exacerbation of chronic obstructive airways disease, Acute on chronic hypoxic respiratory failure, Acute on chronic respiratory failure with hypercapnia Condition: Stable Coding Level of Care Code ED Pyridine Recovery Operator for [place]
[2024-01-30 17:26] LABS: ABG PH Result 7.36 (7.35-7.45); Arterial Blood Gas Hematocrit 37.4 % (42-52); Base Excess ABG 6.4 mmol/L (-2.0-2.0); Blood Gas Sample Type Arterial; Carboxyhemoglobin 1.4 %THgb (0.4-20.1); HCO3 ABG 33.6 mmol/L (22-26); HGB O2 Sat 95.8 % (95-100); Ionized Calcium Level - ABG 1.2 mmol/L (1.1-1.4); Methemoglobin 0.7 % (0.4-1.5); Oxygen Saturation ABG 97.8; PO2 ABG 84.7 mmHg (80.0-100.0); Total Hemoglobin 12.2 g/dL (14-18)
[2024-01-30 17:27] LABS: Alveolar-Arterial Oxygen Gradi 12.7 mmHg (5-10); Blood Gas Operator Identificat GD; Blood Gas Sample Site Brachial, right; Oxygen Device NC; PO2 FiO2 Ratio Arterial Blood 0
[2024-01-30 17:28] LABS: Basophils % 0.2 %; Eosinophils # 0.3 10^3/uL (0.0-0.8); Eosinophils % 3.6 %; Hematocrit 39.9 % (37-53); Lymphocytes # 1.2 10^3/uL (0.8-4.8); Lymphocytes % 13.8 %; Mean Corpuscular HGB Conc 30.6 g/dL (30-55); Mean Corpuscular Hemoglobin 27.7 pg (27-33); Mean Corpuscular Volume 90.5 fl (82-101); Mean Platelet Volume 9.8 fL (7.4-10.4); Monocytes # 1.2 10^3/uL (0.2-0.9); Monocytes % 13.7 %; Neutrophils # 6.01 10^3/uL (1.8-7.7); Neutrophils % 68.4 %; Nucleated Red Blood Cells % 0 %; Platelet Count 189 10^3/cmm (157-399); Red Blood Count 4.41 10^6/uL (3.85-5.65); Red Cell Distribution Width 14.9 % (12.1-15.1); White Blood Count 8.81 10^3/uL (3.29-11.43)
[2024-01-30 17:28] LABS: ABG PCO2 60.2 mmHg (35-45)
[2024-01-30 17:57] LABS: Influenza A by IFA negative (Negative); Influenza B by IFA negative (Negative)
[2024-01-30 18:01] LABS: Lactic Sepsis W/Reflex 1.2 mmol/L (0.5-2.2); Troponin(5th) Baseline 15 ng/L (0-15)
[2024-01-30 18:03] LABS: Alanine Aminotransferase 27 U/L (0-41); Albumin Level 3.4 g/dL (3.5-5.2); Alkaline Phosphatase 98 U/L (40-130); Anion Gap 11.2 (5-19); Aspartate Amino Transferase 17 U/L (0-40); Blood Urea Nitrogen 21 mg/dL (8-23); C Reactive Protein 49.5 mg/L (0.0-4.9); Carbon Dioxide 31 mmol/L (22-29); Chloride 104 mmol/L (98-107); Creatinine Clr Calc Pharmacy 94.1571; Globulin 2.9 g/dL (1.3-4.6); Glucose 122 mg/dL (65-115); NT Pro B Type Natriuretic Pept 179 pg/mL (0-125); Osmolality Calculated 298 mOsm/kg (285-295); Potassium 4.2 mmol/L (3.5-5.1); Sodium 142 mmol/L (136-145); Total Bilirubin 0.2 mg/dL (0.15-1.2); Total Protein 6.3 g/dL (6.6-8.7)
[2024-01-30 18:21] LABS: SARS Covid-2 Antigen negative (Negative)
--- NOTE | 2024-01-30 19:01 | ECG_ITS ---
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 Measurements Intervals [place] Rate: 72 P: 63 NM: 282 QRS: -35 QRSD: 81 T: 60 QT: 359 QTc: 393 Interpretive Statements SINUS RHYTHM WITH FIRST DEGREE AV BLOCK LEFT AXIS DEVIATION [QRS AXIS < -30] Compared to ECG 01/30/2024 17:20:54 Left-axis deviation now present Electronically Signed On 01-31-2024 12:41:41 CDT by Kedar Coyle M.D. [id number]
[2024-01-30 19:36] LABS: Troponin 5 2HR 11.88 ng/L (0-15)
[2024-01-30 19:47] LABS: Troponin 5 2HR Delta -3.12 ABS# (0-10)
[2024-01-30 20:14] LABS: ABG PH Result 7.31 (7.35-7.45); Alveolar-Arterial Oxygen Gradi 13.9 mmHg (5-10); Arterial Blood Gas Hematocrit 39.8 % (42-52); Base Excess ABG 5.1 mmol/L (-2.0-2.0); Blood Gas Allen Test Pos; Blood Gas Operator Identificat glc; Blood Gas Sample Site Radial, right; Blood Gas Sample Type Arterial; Carboxyhemoglobin 1.1 %THgb (0.4-20.1); HCO3 ABG 33.5 mmol/L (22-26); Ionized Calcium Level - ABG 1.3 mmol/L (1.1-1.4); Methemoglobin 0.3 % (0.4-1.5); Oxygen Device BIPAP; Oxygen Saturation ABG 97.3; PO2 FiO2 Ratio Arterial Blood 0; Potassium Level - ABG 4.4 mmol/L (3.5-5.0)
--- NOTE | 2024-01-30 20:59 | P.HP_ITS ---
Providers/Chief Complaint 2 Admitting Physician: Derick Mattson MD Primary Care Provider: Shweta Márquez DO Chief Complaint: SOB History of Present Illness Elvin Nunn is a 64 year old male presenting to the emergency department with significant shortness of breath. Patient reports this has been going on for about 3 days. No fever. Does not believe he had any chills. Has felt a little nauseous. Reports he has been coughing quite a bit and wheezing quite a bit, and this always makes his chest hurt quite a bit. He states it hurts when I press on it, and when he coughs. He denies any hemoptysis. He reports he had a little bit of loose stool. No other family members that are ill. He frequently has asthma exacerbations. Last hospitalization he was admitted in December and discharged January 20. He had not yet followed up with pulmonary. They see him for his severe persistent asthma, eosinophilic. Review of Systems 2 General: Reports: 10 or more systems reviewed and unremarkable except in HPI and below Card: Reports: chest pain Resp: Reports: dyspnea and non-productive cough GI: Reports: abdominal pain (With coughing) and nausea; Denies: vomiting, hematochezia or melena Medications/Allergies Home Medications Medication Instructions Recorded Confirmed Last Taken Type hsopital bed #1 ea 08/28/22 01/16/24 Unknown Rx wheelchair #1 ea 08/28/22 01/16/24 Unknown Rx primidone 50 mg tablet 100 mg PO BEDTIME 12/01/22 01/16/24 10/06/23 History levalbuterol tartrate 45 2 inh inhalation Q4H PRN shortness 04/17/23 01/16/24 10/06/23 Rx mcg/actuation aerosol inhaler of breath or wheezing #15 grams atorvastatin 20 mg tablet 20 mg PO QPM 10/07/23 01/16/24 10/06/23 History [id number] Nebulizer Set #1 ea 10/13/23 01/16/24 Unknown Rx citalopram 40 mg tablet 40 mg PO DAILY #90 tabs 11/05/23 01/16/24 Unknown Rx metoprolol tartrate 25 mg tablet 25 mg PO BID #180 tabs 11/05/23 01/16/24 Unknown Rx montelukast 10 mg tablet 10 mg PO DAILY #90 tabs 11/05/23 01/16/24 Unknown Rx olanzapine 2.5 mg tablet (Zyprexa) 2.5 mg PO DAILY #90 tabs 11/05/23 01/16/24 Unknown Rx pantoprazole 40 mg tablet,delayed 40 mg PO DAILY #90 tabs 11/05/23 01/16/24 Unknown Rx release gabapentin 300 mg capsule See Rx Instructions .Route 11/16/23 01/16/24 Unknown Rx .COMPLEX #90 caps benralizumab 30 mg/mL subcutaneous 30 mg SUBCUT .q 8 weeks #1 mL 12/21/23 01/16/24 Unknown Rx auto-injector (Fasenra Pen) isosorbide mononitrate 30 mg See Rx Instructions .Route 01/06/24 01/16/24 Unknown Rx tablet,extended release 24 hr .COMPLEX #90 tabs nitroglycerin 0.4 mg sublingual See Rx Instructions .Route 01/08/24 01/16/24 01/15/24 Rx tablet .COMPLEX #25 tabs azithromycin 250 mg tablet See Rx Instructions PO .COMPLEX #6 01/14/24 01/16/24 Unknown Rx (Zithromax Z-Beka) tabs budesonide 160 mcg-glycopyr 9 2 inh inhalation BID 01/16/24 01/16/24 Unknown History mcg-formot 4.8 mcg/actuation HFA inhaler (Breztri Aerosphere) prednisone 5 mg tablet 5 mg PO DAILY PRN COPD 01/16/24 01/16/24 Unknown History benzonatate 200 mg capsule 200 mg PO TID PRN cough #60 caps 01/21/24 Unknown Rx ipratropium 0.5 mg-albuterol 3 mg 3 ml inhalation Q6H #180 mL 01/21/24 Unknown Rx (2.5 mg base)/3 mL nebulization soln prednisone 20 mg tablet See Rx Instructions .Route 01/21/24 Unknown Rx .COMPLEX #20 tabs Allergies Allergy/AdvReac Type Severity Reaction Status Date / Time No Known Allergies Allergy Verified 11/05/23 10:16 PFSH Acute 2 PFSH: Medical History Sleep walking Parasomnia Eosinophilic asthma Degenerative lumbar disc History of compression fracture of spine Left leg DVT 07/2022 Cognitive impairment GERD (gastroesophageal reflux disease) Asthma-COPD overlap syndrome Tremor Chronic neck pain Pulmonary emphysema with fibrosis of lung Surgical History History of cataract extraction bilateral History of tonsillectomy Hx of appendectomy Family History Other Dementia Stroke Denies family history of Diabetes CAD (coronary artery disease) Clotting disorder Hyperlipidemia Psychiatric illness Chronic kidney disease (CKD) Suicide Anesthesia complication Bleeding disorder Family history of premature coronary artery disease Lung disease Cancer Hypertension Social History Smoking and tobacco/nicotine status: former use of tobacco/nicotine Quit status (tobacco/nicotine): has quit using Year quit tobacco: 2017 Former quit date comment: 1pack per month x 2 years Second hand smoke exposure: No Alcohol intake: never Substance/Drug Use: never Vitals/I&O/Wt Last Vital Signs Temp 98.6 F 01/30/24 16:55 Pulse 78 01/30/24 20:15 Resp 29 H 01/30/24 20:15 BP 140/100 01/30/24 20:15 Pulse Ox 94 01/30/24 20:15 O2 Del Method BiPAP 01/30/24 20:15 O2 Flow Rate 4 01/30/24 16:55 FiO2 40 01/30/24 17:40 Weight last 48 hrs Weight 123.377 kg Physical Exam 2 Narrative: General exam is a white male, who reports he is still fairly short of breath on BiPAP. He is able to talk but is tachypneic. At least moderate respiratory distress with a respiratory rate in the mid 20s. HEENT: Atraumatic normocephalic. Oropharynx not examined secondary to BiPAP Neck is supple no lymphadenopathy thyromegaly. Cardiovascular regular rate and rhythm without murmur, no S3 or S4 Lungs clear no wheezing or crackles Abdomen is soft, positive bowel sounds. No obvious organomegaly exam was deferred Extremities no sinus clubbing edema, cap refill brisk Skin no rash Neuro no obvious focal deficits. Data 01/30/24 17:09 01/30/24 17:09 Other Labs: Initial ABG demonstrated pH 7.36, pCO2 60, pO2 of 84. This was done on 4 L per nasal cannula. Calcium 8.0, albumin 3.4 LFTs are normal Troponin 15 and repeat 12 CRP 49 Influenza, rapid COVID-negative Chest x-ray per my read no obvious infiltrate, little atelectasis right midlung Recent CTA 01/18 no PE EKG demonstrates sinus rhythm, normal axis, no acute changes per my read BNP slight elevation 179 Previous echo 01/18 normal EF. Micro: Microbiology 01/30/24 17:09 Blood Culture - Preliminary Blood SPECIMEN COLLECTED 01/30/24 17:12 Blood Culture - Preliminary Blood SPECIMEN COLLECTED A&P Assessment and plan (1) Acute on chronic respiratory failure with hypercapnia: Patient with acute on chronic hypoxic and hypercapnic respiratory failure BiPAP as tolerated, wean off as tolerated Clear liquid diet initially (2) Asthma exacerbation in COPD: Patient with acute exacerbation of asthma Doxycycline empirically Budesonide twice daily Solu-Medrol 60 mg IV every 6 hours DuoNeb every 4 hours COVID and influenza negative through the emergency department. This was a rapid COVID. Plan Other medical problems as outlined by past medical history Full code Lovenox for DVT prophylaxis Attestations 2 Medical Necessity Statement*: Will require greater than 2 midnights started for acute asthma exacerbation associated with need for BiPAP with hypercarbic and hypoxemic respiratory failure. Diagnoses Acute on chronic respiratory failure with hypercapnia J96.22 Asthma exacerbation in COPD J44.1; J45.901 Time Spent (min) 54
--- NOTE | 2024-01-30 21:10 | PC.NURSE ---
Report called to Elizabeth BRITO in [facility]. All questions and concerns were addressed at time of report.
[2024-01-30 21:20] LABS: Bilirubin Urine Neg (Negative); Blood Urine 2+ (Negative); Glucose Urine UA Norm (Normal); Ketones Urine Negative (Negative); Nitrate Urine Negative (Negative); Protein Urine Neg (Negative); Urine Appearance Clear (CLEAR); Urine Color Yellow (Yellow); Urobilinogen Urine 1 mg/dL (Negative); pH Urine 5 (5-7)
[2024-01-30 21:21] LABS: Bacteria Urine TRACE /hpf; Leukocyte Esterase Urine Negative (Negative); Mucus Urine 2+ /hpf; RBC Urine 0-4 /hpf (0-2); Squamous Epithelial Cell Urine 0-4 /hpf (0-5); WBC Urine 0-4 /hpf (0-5)
[2024-01-30] MEDS: primidone 50 mg Tablet 100 MG PO (22:09)
[2024-01-30] MEDS: enoxaparin 40 mg/0.4 mL Syringe SUBCUT (22:09)
[2024-01-30] MEDS: doxycycline 100 mg Tablet PO (22:09)
[2024-01-30] MEDS: methylPREDNISolone sod succ 125 mg/2 mL INJ 60 MG IVP (22:09)
[2024-01-30] MEDS: acetaminophen 325 mg Tablet 650 MG PO (22:12)
--- NOTE | 2024-01-30 22:18 | PC.NURSE ---
Ace and Susanna (patient's brother and sister) would like to be called with an update tomorrow when or after the doctor rounds. Ace Oh states they have another family member in the hospital and will not be able to visit tomorrow.
[2024-01-30 22:40] LABS: ABG PCO2 66.6 mmHg (35-45)
[2024-01-30 23:01] LABS: Troponin 5 6HR 10.49 ng/L (0-15)
[2024-01-30 23:08] LABS: Troponin 5 6HR Delta -4.51 ng/L (0-12)
--- NOTE | 2024-01-30 23:18 | PC.NURSE ---
Addendum entered by Elizabeth Saravia RN 01/30/24 23:20: Medication list provided sister does not have the frequency of many of the mediations. It also states that the patient takes 20 mg Citalopram, while the external med history shows a dose of 40 mg. This will need to be verified. Medication list provided by sister has been copied and placed in patient's paper chart. Original Note: There are multiple medications in the patient's external med history that show to have recently been filled that are not listed on the medication list provided by the sister. There are multiple medications crossed off of the medication list provided by the sister that show to have recently be filled in the external med history. I have updated the med rec to the best of my knowledge at this time. Further investigation will need to be done.
[2024-01-30] MEDS: ipratropium-albuterol 3 mL Neb INHALATION (23:28)
[2024-01-31] VITALS (15 sets, daily range): BP systolic 111–142; BP diastolic 68–85; PULSE 54–97; RESP 14–20; TEMP 33.2–36.7; O2SAT 63–96
[2024-01-31 04:37] LABS: Hematocrit 37.3 % (37-53); Lymphocytes # 0.6 10^3/uL (0.8-4.8); Lymphocytes % 9.5 %; Mean Corpuscular HGB Conc 30.3 g/dL (30-55); Mean Corpuscular Hemoglobin 27.6 pg (27-33); Monocytes # 0.1 10^3/uL (0.2-0.9); Monocytes % 2.4 %; Neutrophils % 87.8 %; Nucleated Red Blood Cells % 0 %; Platelet Count 195 10^3/cmm (157-399); Red Cell Distribution Width 14.9 % (12.1-15.1); White Blood Count 5.81 10^3/uL (3.29-11.43)
[2024-01-31] MEDS: ipratropium-albuterol 3 mL Neb INHALATION ×5 (04:40→20:23)
[2024-01-31 05:00] LABS: Alanine Aminotransferase 24 U/L (0-41); Albumin Level 3.2 g/dL (3.5-5.2); Alkaline Phosphatase 93 U/L (40-130); Anion Gap 11.3 (5-19); Aspartate Amino Transferase 15 U/L (0-40); Blood Urea Nitrogen 28 mg/dL (8-23); Calcium 8.3 mg/dL (8.5-10.5); Carbon Dioxide 30 mmol/L (22-29); Chloride 103 mmol/L (98-107); Globulin 3.3 g/dL (1.3-4.6); Glomerular Filtration Rate 84.7 mL/min (90-130); Glucose 183 mg/dL (65-115); Osmolality Calculated 300 mOsm/kg (285-295); Potassium 4.3 mmol/L (3.5-5.1); Sodium 140 mmol/L (136-145); Total Bilirubin 0.2 mg/dL (0.15-1.2); Total Protein 6.5 g/dL (6.6-8.7)
[2024-01-31] MEDS: methylPREDNISolone sod succ 125 mg/2 mL INJ 60 MG IVP ×4 (06:18→23:43)
[2024-01-31] MEDS: budesonide 0.5 mg/2 mL Neb INHALATION ×2 (09:02→20:23)
[2024-01-31] MEDS: pantoprazole DR 40 mg Tablet PO (09:11)
[2024-01-31] MEDS: isosorbide mononitrate ER 30 mg Tablet PO (09:11)
[2024-01-31] MEDS: doxycycline 100 mg Tablet PO ×2 (09:11→17:02)
[2024-01-31] MEDS: citalopram 20 mg Tablet 40 MG PO (09:11)
[2024-01-31] MEDS: OLANZapine 5 mg TABLET 2.5 MG PO (09:11)
[2024-01-31] MEDS: montelukast sodium 10 mg Tablet PO (09:11)
--- NOTE | 2024-01-31 10:34 | PC.PHAR ---
pt states his sister ezekiel takes care of his [phone] ezekiel (sister) leslie [phone] (brother in law)-pts sister ezekiel states the pt hasnt taken a baby aspirin 81mg daily in a year-aspirin was entered on med rec done by jeremías barr on 01/16/24-pts sister ezekiel states the pt takes gabapentin 300mg takes 600mg daily prn ext shows last filled 300mg tid filled 01/10/24 30d/s-pts sister states she gives the pt prednisone as she thinks he needs it and how she thinks he needs it ext shows last filled 01/21/24 13d/s TAKE THREE TABLETS BY MOUTH DAILY FOR THREE DAYS, TWO TABLETS BY MOUTH FOR THREE DAYS, ONE TABLET BY MOUTH FOR THREE DAYS, THEN ONE-HALF TABLET BY MOUTH FOR FOUR DAYS-pts sister states she doesnt give it the way it was filled-pts sister states the pt has been out of metoprolol tartrate 25mg bid for a month ext shows last filled 01/28/24 90d/s-pts sister states the pt is still taking lipitor 20mg daily ext shows filled 12/17/23 90d/s lipitor and metoprolol was not on previously enterd med rec done on 01/16/24-
--- NOTE | 2024-01-31 11:35 | P.PN_ITS ---
Subjective 2 Subjective: seen this morning no acute events overnight Vitals/I&O/Wt Last Vital Signs Temp 97.8 F 01/31/24 11:15 Pulse 80 01/31/24 11:15 Resp 17 01/31/24 11:15 BP 133/85 01/31/24 11:15 Pulse Ox 90 01/31/24 11:15 O2 Del Method Nasal Cannula 01/31/24 11:15 O2 Flow Rate 4 01/31/24 09:04 FiO2 32 01/31/24 04:00 01/30/24 01/31/24 01/31/24 22:59 06:59 14:59 Intake Total 200 / 200 480 / 480 Output Total 350 / 350 Balance -150 / -150 480 / 480 Weight last 48 hrs Weight 121.109 kg Weight 117.934 kg Weight 119.386 kg Weight 123.377 kg Physical Exam 2 Narrative: General exam is a white male,says at rest he feels better but sob on exertion, bringing up a lot of phlegm HEENT: Atraumatic normocephalic. Oropharynx not examined secondary to BiPAP Neck is supple no lymphadenopathy thyromegaly. Cardiovascular regular rate and rhythm without murmur, no S3 or S4 Lungs clear no wheezing or crackles Abdomen is soft, positive bowel sounds. No obvious organomegaly exam was deferred Extremities no sinus clubbing edema, cap refill brisk Skin no rash Neuro no obvious focal deficits. Data 01/31/24 03:14 01/31/24 03:14 Micro: Microbiology 01/30/24 17:09 Blood Culture - Preliminary Blood SPECIMEN COLLECTED 01/30/24 17:12 Blood Culture - Preliminary Blood SPECIMEN COLLECTED A&P Assessment and plan (1) Acute on chronic respiratory failure with hypercapnia: Patient with acute on chronic hypoxic and hypercapnic respiratory failure BiPAP as tolerated, wean off as tolerated Clear liquid diet initially (2) Asthma exacerbation in COPD: Patient with acute exacerbation of asthma Doxycycline empirically Budesonide twice daily Solu-Medrol 60 mg IV every 6 hours DuoNeb every 4 hours COVID and influenza negative through the emergency department. This was a rapid COVID. Plan Other medical problems as outlined by past medical history Full code Lovenox for DVT prophylaxis continue above with addition of check sputum gm stain & culture Attestations 2 Medical Necessity Statement*: Will require greater than 2 midnights started for acute asthma exacerbation associated with need for BiPAP with hypercarbic and hypoxemic respiratory failure. Diagnoses Acute on chronic respiratory failure with hypercapnia J96.22 Asthma exacerbation in COPD J44.1; J45.901
[2024-01-31 12:11] LABS: Procalcitonin 0.04 ng/mL (0-0.5)
[2024-01-31] MEDS: atorvastatin 40 mg Tablet 20 MG PO (17:02)
[2024-01-31] MEDS: primidone 50 mg Tablet 100 MG PO (20:39)
[2024-01-31] MEDS: enoxaparin 40 mg/0.4 mL Syringe SUBCUT (20:40)
[2024-01-31] MEDS: acetaminophen 325 mg Tablet 650 MG PO (21:47)
[2024-02-01] VITALS (16 sets, daily range): BP systolic 115–147; BP diastolic 58–86; PULSE 62–96; RESP 16–29; TEMP 36.3–36.9; O2SAT 91–95
[2024-02-01] MEDS: ipratropium-albuterol 3 mL Neb INHALATION ×7 (00:19→23:39)
[2024-02-01] MEDS: methylPREDNISolone sod succ 125 mg/2 mL INJ 60 MG IVP ×2 (04:53→11:39)
[2024-02-01 05:10] LABS: Basophils % 0.1 %; Hematocrit 36.5 % (37-53); Lymphocytes # 0.7 10^3/uL (0.8-4.8); Lymphocytes % 5.2 %; Mean Corpuscular HGB Conc 31.2 g/dL (30-55); Mean Corpuscular Hemoglobin 27.5 pg (27-33); Mean Platelet Volume 10.4 fL (7.4-10.4); Monocytes # 0.5 10^3/uL (0.2-0.9); Monocytes % 4.1 %; Neutrophils # 11.86 10^3/uL (1.8-7.7); Neutrophils % 90.2 %; Nucleated Red Blood Cells % 0 %; Platelet Count 209 10^3/cmm (157-399); Red Blood Count 4.15 10^6/uL (3.85-5.65); Red Cell Distribution Width 14.9 % (12.1-15.1); White Blood Count 13.14 10^3/uL (3.29-11.43)
[2024-02-01] MEDS: acetaminophen 325 mg Tablet 650 MG PO ×2 (05:20→11:39)
[2024-02-01 05:31] LABS: Anion Gap 12.7 (5-19); Blood Urea Nitrogen 19 mg/dL (8-23); Calcium 8.4 mg/dL (8.5-10.5); Carbon Dioxide 29 mmol/L (22-29); Chloride 101 mmol/L (98-107); Creatinine Clr Calc Pharmacy 116.5151; Glucose 172 mg/dL (65-115); Osmolality Calculated 294 mOsm/kg (285-295); Potassium 3.7 mmol/L (3.5-5.1); Sodium 139 mmol/L (136-145)
--- NOTE | 2024-02-01 07:25 | P.PN_ITS ---
Documented by User: [email or web address] Saab [email or web address] 02/01/24 09:14 Subjective 2 Subjective: Mr. Nunn was seen this morning, reports he is breathing better, BiPAP is held, breathing treatments have helped. He reports continued shortness of breath, but says that this is also close to his baseline at home. No acute events overnight, he is back down to his home baseline of 4 L O2. He reports breathing is stable, and has not gotten worse or his admission. Nursing reports no acute events. Patient reports no headache, changes in vision, nausea, vomiting, diarrhea, chest pain or palpitations,. Medications: Reviewed: Yes Vitals/I&O/Wt Last Vital Signs Temp 97.3 F L 02/01/24 03:56 Pulse 74 02/01/24 04:59 Resp 18 02/01/24 04:59 BP 134/72 02/01/24 03:56 Pulse Ox 91 02/01/24 04:59 O2 Del Method Nasal Cannula 02/01/24 04:59 O2 Flow Rate 4 02/01/24 04:59 FiO2 32 02/01/24 00:15 01/31/24 02/01/24 02/01/24 22:59 06:59 14:59 Intake Total 360 / 1320 Output Total 0 / 0 0 / 0 Balance 360 / 1320 0 / 1320 Weight last 48 hrs Weight 267 lb Weight 267 lb Weight 260 lb Weight 263 lb 3.2 oz Weight 272 lb Physical Exam 2 Narrative: General: Comfortable appearing male, resting in bed, nasal cannula in place, conversing appropriately, speech normal. HEENT: Head atraumatic, normocephalic to visual inspection, PERRL, neck supple thyromegaly noted. CV: Regular rate and rhythm, no murmurs rubs or gallops noted. Pulm: Bilateral upper lobes clear to auscultation, right lower lobe clear to auscultation, left lower lobe mild expiratory wheezing noted. GI: Abdomen soft, nontender, bowel sounds present all quadrants. Extremities: Capillary<2 seconds, all extremities otherwise normal, no edema noted. Data 02/01/24 04:42 02/01/24 04:42 Other Labs: Initial ABG demonstrated pH 7.36, pCO2 60, pO2 of 84. This was done on 4 L per nasal cannula. Calcium 8.0, albumin 3.4 LFTs are normal Troponin 15 and repeat 12 CRP 49 Influenza, rapid COVID-negative Chest x-ray per my read no obvious infiltrate, little atelectasis right midlung Recent CTA 01/18 no PE EKG demonstrates sinus rhythm, normal axis, no acute changes per my read BNP slight elevation 179 Previous echo 01/18 normal EF. Micro: Microbiology 01/30/24 17:09 Blood Culture - Preliminary Blood NEGATIVE TO DATE 01/30/24 17:12 Blood Culture - Preliminary Blood NEGATIVE TO DATE A&P Assessment and plan (1) Acute on chronic respiratory failure with hypercapnia: Patient with acute on chronic hypoxic and hypercapnic respiratory failure BiPAP as tolerated, wean off as tolerated Clear liquid diet initially Will repeat ABG if clinically indicated, however CMP reveals bicarb has corrected. This may be indicative of correcting hypercapnia. Patient looks improved today, is back at his home baseline 4 L O2. Blood cultures ordered, negative to date. Sputum and Gram culture ordered, pending collection. If patient continues to improve, may consider discharge tomorrow. (2) Asthma exacerbation in COPD: Patient with acute exacerbation of asthma Doxycycline empirically Budesonide twice daily Solu-Medrol 60 mg IV every 6 hours DuoNeb every 4 hours COVID and influenza negative through the emergency department. This was a rapid COVID. Plan Other medical problems as outlined by past medical history Full code Lovenox for DVT prophylaxis Coding Level of Care Code 55911 Diagnoses Acute on chronic respiratory failure with hypercapnia J96.22 Asthma exacerbation in COPD J44.1; J45.901 Documented by User: Disha Adams MD 02/01/24 14:28 Subjective 2 Subjective: Mr. Nunn was seen this morning, reports he is breathing better, BiPAP is held, breathing treatments have helped. He reports continued shortness of breath, but says that this is also close to his baseline at home. No acute events overnight, he is back down to his home baseline of 4 L O2. He reports breathing is stable, and has not gotten worse or his admission. Nursing reports no acute events. Patient reports no headache, changes in vision, nausea, vomiting, diarrhea, chest pain or palpitations,. Data 02/01/24 04:42 02/01/24 04:42 A&P Assessment and plan (1) Acute on chronic respiratory failure with hypercapnia: (2) Asthma exacerbation in COPD: Attestations 2 Medical Necessity Statement*: Will require greater than 2 midnights started for acute asthma exacerbation associated with need for BiPAP with hypercarbic and hypoxemic respiratory failure. Diagnoses Acute on chronic respiratory failure with hypercapnia J96.22 Asthma exacerbation in COPD J44.1; J45.901
[2024-02-01] MEDS: budesonide 0.5 mg/2 mL Neb INHALATION ×2 (07:57→20:05)
[2024-02-01] MEDS: citalopram 20 mg Tablet 40 MG PO (08:55)
[2024-02-01] MEDS: isosorbide mononitrate ER 30 mg Tablet PO (08:56)
[2024-02-01] MEDS: montelukast sodium 10 mg Tablet PO (08:56)
[2024-02-01] MEDS: pantoprazole DR 40 mg Tablet PO (08:56)
[2024-02-01] MEDS: OLANZapine 5 mg TABLET 2.5 MG PO (08:56)
[2024-02-01] MEDS: doxycycline 100 mg Tablet PO ×2 (08:56→18:18)
--- NOTE | 2024-02-01 09:20 | PC.CHAP ---
Pastoral Care Encounter/Spiritual Assessment Type of Contact [] Declined manager clinical applications visit [] Patient/Family/Request visit [] Outpatient visit [] Follow-up visit [] Physician referral [] Code/Alert [x] Routine visit [] Staff referral [] Actively dying [] Patient sleeping [] Family support [] [] Out of room [] Palliative care [] [] Receiving care in room [] Pre-surgical visit [] Trauma [] Long length of stay [] ICU visit [] Other: Relational/Emotional Strength [] Patient feels connected with others/family/visitors/staff [] Distress [] Loneliness/isolation [] Abandonment Spirituality of Patient [x] Person of Tova [] Attends Sikhism of their [place]ova [x] Believes in Prayer [] Reads Bible or Yarsani materials [] There are Spiritual issues to be addressed American Sign Language Interpreter 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 [x] Prayer [] Active listening [] Non-anxious presence [] Spiritual/emotional support [] Crisis/trauma care [] Spiritual counseling [] Bereavement support [] Provided bereavement packet [] Provided Bible/devotional materials [] Provided toy/stuffed animal, coloring book to patient or family member [] Provided Communion [] Anointing/[place] [] Salvation [x] Completed spiritual assessment [] Other: Impact on Illness or Injury [] Angry [] Fearful [] Anxious [] Often cries [] Exhaustion [] Unable to work [] Unable to attend latter-day [] Unable to walk/stand [] Unable to read [] Unable to drive [] Unable to eat/drink [] Unable to sleep [] Unable to be with family [] Patient intubated [] Other: Summary Time spent with patient 5 min
[2024-02-01] MEDS: methylPREDNISolone sod succ 40 mg/mL INJ IVP (15:21)
--- NOTE | 2024-02-01 16:41 | PC.NURSE ---
Physician orders for hydrocodone 5-325 q4h for pain
[2024-02-01] MEDS: HYDROcodone-acetaminophen 5-325 mg Tablet 1 TAB PO (18:17)
[2024-02-01] MEDS: atorvastatin 40 mg Tablet 20 MG PO (18:17)
[2024-02-01] MEDS: primidone 50 mg Tablet 100 MG PO (20:26)
[2024-02-01] MEDS: enoxaparin 40 mg/0.4 mL Syringe SUBCUT (20:26)
[2024-02-02] VITALS (13 sets, daily range): BP systolic 122–129; BP diastolic 70–75; PULSE 59–93; RESP 14–18; TEMP 36.6–36.7; O2SAT 85–95
[2024-02-02] MEDS: methylPREDNISolone sod succ 40 mg/mL INJ IVP (01:56)
[2024-02-02] MEDS: ipratropium-albuterol 3 mL Neb INHALATION ×4 (03:51→15:53)
[2024-02-02] MEDS: citalopram 20 mg Tablet 40 MG PO (07:37)
[2024-02-02] MEDS: OLANZapine 5 mg TABLET 2.5 MG PO (07:37)
[2024-02-02] MEDS: isosorbide mononitrate ER 30 mg Tablet PO (07:37)
[2024-02-02] MEDS: pantoprazole DR 40 mg Tablet PO (07:37)
[2024-02-02] MEDS: doxycycline 100 mg Tablet PO (07:37)
[2024-02-02] MEDS: montelukast sodium 10 mg Tablet PO (07:38)
[2024-02-02] MEDS: budesonide 0.5 mg/2 mL Neb INHALATION (08:06)
--- NOTE | 2024-02-02 08:30 | PM.PN ---
Vitals/I&O/Wt Last Vital Signs Temp 97.8 F 02/02/24 04:39 Pulse 93 02/02/24 08:04 Resp 18 02/02/24 08:04 BP 125/75 02/02/24 04:39 Pulse Ox 90 02/02/24 08:04 O2 Del Method Nasal Cannula 02/02/24 08:04 O2 Flow Rate 4 02/02/24 08:04 FiO2 32 02/02/24 03:55 02/01/24 02/02/24 02/02/24 22:59 06:59 14:59 Intake Total 100 / 580 Output Total 300 / 300 275 / 575 Balance -200 / 280 -275 / 5 Weight last 48 hrs Weight 268 lb 14.4 oz Weight 267 lb Data 02/01/24 04:42 02/01/24 04:42 Coding Level of Care Code Acute Code for Chg Fwd
--- NOTE | 2024-02-02 12:24 | PM.DCS ---
Discharge Providers Date of Admission: 01/30/24 19:37 Date of Discharge: February 02, 2024 Attending Provider at Admission: Derick Mattson MD Attending Provider at Discharge: Disha Adams MD Primary Care Provider: Shweta Márquez DO Diagnoses at Discharge Discharge Diagnosis (1) Acute on chronic respiratory failure with hypercapnia: Status: Resolved (2) Asthma exacerbation in COPD: Status: Acute Reason for Visit Reason for Visit: SOB Hospital Course Hospital Course Admitted for COPD exacerbation. Back to baseline. Sent home on prednisone taper and doxycycline. Physical Exam Narrative: General: Comfortable appearing male, resting in bed, nasal cannula in place, baseline 4 L. HEENT: Head atraumatic, normocephalic to visual inspection, PERRL, neck supple thyromegaly noted. CV: Regular rate and rhythm, no murmurs rubs or gallops noted. Pulm: Mainly clear to auscultation with minimal wheezing at bases bilaterally. GI: Abdomen soft, nontender, bowel sounds present all quadrants. Extremities: Capillary<2 seconds, all extremities otherwise normal, no edema noted. Discharge Data Studies Completed and Pending Completed Studies During Hospitalization Category Date Time Status XR chest 1V [id number] Stat Exams 01/30/24 17:00 Completed Pending at discharge Category Date Time Status Blood Culture Stat Lab 01/30/24 17:09 Results Sputum Culture and Gram Stain Stat Lab 01/31/24 11:37 Uncollected Radiology Impressions Chest X-Ray 01/30/24 17:00 IMPRESSION: No acute findings. Laboratory Results WBC 13.14 10^3/uL (3.29-11.43) H 02/01/24 04:42 RBC 4.15 10^6/uL (3.85-5.65) 02/01/24 04:42 Hgb 11.40 g/dL (11.27-16.99) 02/01/24 04:42 Hct 36.5 % (37-53) L 02/01/24 04:42 MCV 88.0 fl (82-101) 02/01/24 04:42 MCH 27.5 pg (27-33) 02/01/24 04:42 MCHC 31.2 g/dL (30-55) 02/01/24 04:42 RDW 14.9 % (12.1-15.1) 02/01/24 04:42 Plt Count 209 10^3/cmm (157-399) 02/01/24 04:42 MPV 10.4 fL (7.4-10.4) 02/01/24 04:42 Neut % (Auto) 90.2 % 02/01/24 04:42 Lymph % (Auto) 5.2 % 02/01/24 04:42 [place] % (Auto) 4.1 % 02/01/24 04:42 Eos % (Auto) 0.0 % 02/01/24 04:42 Baso % (Auto) 0.1 % 02/01/24 04:42 Neut # (Auto) 11.86 10^3/uL (1.8-7.7) H 02/01/24 04:42 Lymph # (Auto) 0.7 10^3/uL (0.8-4.8) L 02/01/24 04:42 [place] # (Auto) 0.5 10^3/uL (0.2-0.9) 02/01/24 04:42 Eos # (Auto) 0.0 10^3/uL (0.0-0.8) 02/01/24 04:42 Baso # (Auto) 0.0 10^3/uL (0.0-0.1) 02/01/24 04:42 Nucleated RBC % (auto) 0 % 02/01/24 04:42 Nucleated RBCs # 0.0 /100WBC 02/01/24 04:42 Specimen Type Arterial 01/30/24 20:02 Sample Site Radial, right 01/30/24 20:02 ABG pH 7.31 (7.35-7.45) L 01/30/24 20:02 ABG pCO2 66.6 mmHg (35-45) H* 01/30/24 20:02 ABG pO2 97.0 mmHg (80.0-100.0) 01/30/24 20:02 ABG PO2/FiO2 Ratio 0 01/30/24 20:02 ABG HCO3 33.5 mmol/L (22-26) H 01/30/24 20:02 ABG O2 Saturation 97.3 01/30/24 20:02 ABG Base Excess 5.1 mmol/L (-2.0-2.0) H 01/30/24 20:02 Wilmer Test Pos 01/30/24 20:02 A-a O2 Gradient 13.9 mmHg (5-10) H 01/30/24 20:02 Hematocrit 39.8 % (42-52) L 01/30/24 20:02 Hgb O2 Saturation 96.0 % (95-100) 01/30/24 20:02 Carboxyhemoglobin 1.1 %THgb (0.4-20.1) 01/30/24 20:02 Methemoglobin 0.3 % (0.4-1.5) L 01/30/24 20:02 Total Hemoglobin 13.0 g/dL (14-18) L 01/30/24 20:02 Sodium 142.0 mmol/L (131-143) 01/30/24 20:02 Potassium 4.4 mmol/L (3.5-5.0) 01/30/24 20:02 Glucose 152.0 mg/dL (70-115) H 01/30/24 20:02 Ionized Calcium 1.3 mmol/L (1.1-1.4) 01/30/24 20:02 O2 Delivery Device Bipap 01/30/24 20:02 O2 Liters/Min 4.0 % 01/30/24 17:10 FiO2 40.0 % 01/30/24 20:02 Medical Engineer ID glc 01/30/24 20:02 Sodium 139 mmol/L (136-145) 02/01/24 04:42 Potassium 3.7 mmol/L (3.5-5.1) 02/01/24 04:42 Chloride 101 mmol/L (98-107) 02/01/24 04:42 Carbon Dioxide 29 mmol/L (22-29) 02/01/24 04:42 Anion Gap 12.7 (5-19) 02/01/24 04:42 BUN 19 mg/dL (8-23) 02/01/24 04:42 Creatinine 0.8 mg/dL (0.7-1.2) 02/01/24 04:42 GFR Calculation 97.0 mL/min (90-130) 02/01/24 04:42 Glucose 172 mg/dL (65-115) H 02/01/24 04:42 Calculated Osmolality 294 mOsm/kg (285-295) 02/01/24 04:42 Lactic Acid 1.2 mmol/L (0.5-2.2) 01/30/24 17:09 Calcium 8.4 mg/dL (8.5-10.5) L 02/01/24 04:42 Magnesium 2.0 mg/dL (1.7-2.3) 02/01/24 04:42 Total Bilirubin 0.2 mg/dL (0.15-1.2) 01/31/24 03:14 AST 15 U/L (0-40) 01/31/24 03:14 ALT 24 U/L (0-41) 01/31/24 03:14 Alkaline Phosphatase 93 U/L (40-130) 01/31/24 03:14 Troponin T Baseline 15 ng/L (0-15) 01/30/24 17:09 Troponin T 120 Minute 11.88 ng/L (0-15) 01/30/24 19:03 Delta Troponin T -3.12 ABS# (0-10) L 01/30/24 19:03 Troponin T Hi Sens 6Hr 10.49 ng/L (0-15) 01/30/24 22:35 Troponin T Hi Sens 6Hr Delta -4.51 ng/L (0-12) L 01/30/24 22:35 C-Reactive Protein 49.5 mg/L (0.0-4.9) H 01/30/24 17:09 NT-Pro-B Natriuret Pep 179 pg/mL (0-125) H 01/30/24 17:09 Total Protein 6.5 g/dL (6.6-8.7) L 01/31/24 03:14 Albumin 3.2 g/dL (3.5-5.2) L 01/31/24 03:14 Globulin 3.3 g/dL (1.3-4.6) 01/31/24 03:14 Procalcitonin 0.04 ng/mL (0-0.5) 01/31/24 03:14 Urine Color Yellow (Yellow) 01/30/24 20:14 Urine Appearance Clear (CLEAR) 01/30/24 20:14 Urine pH 5 (5-7) 01/30/24 20:14 Ur Specific [place] 1.030 (1.005-1.030) 01/30/24 20:14 Urine Protein Neg (Negative) 01/30/24 20:14 Urine Glucose (UA) Norm (Normal) 01/30/24 20:14 Urine Ketones Negative (Negative) 01/30/24 20:14 Urine Blood 2+ (Negative) H 01/30/24 20:14 Urine Nitrate Negative (Negative) 01/30/24 20:14 Urine Bilirubin Neg (Negative) 01/30/24 20:14 Urine Urobilinogen 1 mg/dL (Negative) H 01/30/24 20:14 Ur Leukocyte Esterase Negative (Negative) 01/30/24 20:14 Urine RBC 0-4 /hpf (0-2) H 01/30/24 20:14 Urine WBC 0-4 /hpf (0-5) H 01/30/24 20:14 Ur Squamous Epith Cells 0-4 /hpf (0-5) H 01/30/24 20:14 Amorphous Sediment Not Reportable 01/30/24 20:14 Urine Bacteria Trace /hpf (NONE) 01/30/24 20:14 Urine Mucus 2+ /hpf 01/30/24 20:14 Influenza Type A Ag negative (Negative) 01/30/24 17:20 Influenza Type B Ag negative (Negative) 01/30/24 17:20 SARS-CoV-2 Ag (Rapid) negative (Negative) 01/30/24 17:20 Vitals Last Vital Signs Temp 98.0 F 02/02/24 11:12 Pulse 75 02/02/24 11:16 Resp 16 02/02/24 11:16 BP 122/70 02/02/24 11:12 Pulse Ox 94 02/02/24 11:16 O2 Del Method Nasal Cannula 02/02/24 11:16 O2 Flow Rate 4 02/02/24 11:16 FiO2 32 02/02/24 03:55 Discharge Plan Discharge Patient Disposition: Home Condition: Stable Prescriptions: New doxycycline monohydrate 100 mg Tablet 100 mg PO BID 3 Days Qty: 6 0RF prednisone 10 mg tablet See Rx Instructions .ROUTE .COMPLEX Qty: 39 0RF Rx Instructions: 40 mg x5d [id number] Continued (DME) wheelchair See Rx Instructions .Route .MEDSUPPLY Qty: 1 0RF Rx Instructions: As directed (DME) hsopital bed See Rx Instructions .Route .MEDSUPPLY Qty: 1 0RF Rx Instructions: As directed citalopram 40 mg tablet 40 mg PO DAILY Qty: 90 1RF olanzapine [Zyprexa] 2.5 mg tablet 2.5 mg PO DAILY Qty: 90 1RF montelukast 10 mg tablet 10 mg PO DAILY Qty: 90 1RF primidone 50 mg tablet 100 mg PO BEDTIME (DME) A7005 Nebulizer Set See Rx Instructions .Route .MEDSUPPLY Qty: 1 0RF Rx Instructions: As directed Fasenra Pen 30 mg/mL auto-injector 30 mg SUBCUT .q 8 weeks Qty: 1 6RF Rx Instructions: 30 mg injection once every 4 weeks, for first 3 doses.Then Once every 8 weeks Breztri Aerosphere 160-9-4.8 mcg/actuation HFA aerosol inhaler 2 inh inhalation BID gabapentin 300 mg capsule 600 mg PO DAILY PRN (Reason: Pain) atorvastatin 20 mg tablet 20 mg PO DAILY isosorbide mononitrate 30 mg tablet extended release 24 hr 30 mg PO DAILY pantoprazole 40 mg tablet,delayed release (DR/EC) 40 mg PO DAILY Nitrostat 0.4 mg Tablet, Sublingual 0.4 mg SUBLINGUAL Q5M PRN (Reason: Chest Pain) Rx Instructions: do not exceed 3 doses per episode metoprolol tartrate 25 mg tablet 25 mg PO Q12H Mucinex 600 mg Tablet Extended Release 12hr 600 mg PO Q12H PRN (Reason: Congestion) ipratropium-albuterol 0.5 mg-3 mg(2.5 mg base)/3 mL solution for nebulization 3 ml inhalation Q6H PRN (Reason: Shortness Of Breath Or Wheezing) levalbuterol tartrate 45 mcg/actuation HFA aerosol inhaler 2 inh inhalation Q6H PRN (Reason: shortness of breath or wheezing) Discontinued prednisone 20 mg tablet See Rx Instructions .ROUTE .COMPLEX Rx Instructions: as directed as needed Discharge Orders: Discharge Order (Routine); Ordered 02/02/24 Ordered By: Disha Adams Referrals: Mark Fortune MD [Physician] - 7-10 days (We have notified your physician's clinic of the need for a follow-up appointment to be scheduled. If you have not heard from them within the next 2 business days, please call them directly. ) Shweta Márquez DO [Primary Care Provider] - 02/09/24 3:00 pm Discharge Diet: Cardiac and Diabetic Discharge Activity: Resume usual activity and Oxygen as instructed Patient Instructions: Doxycycline (By mouth), Prednisone (By mouth) (predniSONE Intensol, Prednicot, Deltasone, [place]), Chest Pain (DC), Chronic Respiratory Failure (DC), COPD Stoplight, Chest Pain Stoplight, Opioid Safety Discharge Attestations Time Spent in Discharge Care*: less than 30 min Quality Metrics Clinical Quality Measures [ No reported AMI, CVA or VTE this stay] Coding Level of Care Code Acute Code for Chg Fwd Diagnoses Acute on chronic respiratory failure with hypercapnia J96.22 Asthma exacerbation in COPD J44.1; J45.901
--- NOTE | 2024-02-02 17:12 | PC.NURSE ---
Discharge Note Patient discharged to home via POV accompanied by spouse. Discharge instructions reviewed with patient and/or customer support representative. Mobile pharmacy medications and/or prescriptions provided. Belongings/home medications returned.
== END 2024-02-02 17:13 | disposition home or self-care (01) | DRG 189 ==
LOC: ER 18:45 → CSU 19:37
PROVIDERS: Admitting Provider Internal Medicine; Emergency Provider Emergency Medicine; PCP Family Medicine; Visit Provider Internal Medicine
DX: J96.22 Acute and chronic respiratory failure with hypercapnia (principal); J82.83 Eosinophilic asthma; J45.901 Unspecified asthma with (acute) exacerbation; J96.21 Acute and chronic respiratory failure with hypoxia; Z99.81 Dependence on supplemental oxygen; Z87.891 Personal history of nicotine dependence; K21.9 Gastro-esophageal reflux disease without esophagitis; J44.89 Other specified chronic obstructive pulmonary disease
CPT/HCPCS: 36415; 36600; 71045; 80048; 80051; 80053; 81001; 82330; 82805; 83605; 83735; 83880; 84145; 84484; 85025; 86140; 87040; 87426; 87804; 93005; 94640; 94660; 94760; 96372; 99291; J1650; J2919; J7626

== ENCOUNTER → 2024-02-19 08:46 | Outpatient (BNVA) | payer MEDICARE, MEDICAID, SELFPAY | PROVIDERS: PCP Family Medicine; Visit Provider Internal Medicine Pulmonary Disease | DX: J82.83 Eosinophilic asthma (principal); J45.50 Severe persistent asthma, uncomplicated; Z79.52 Long term (current) use of systemic steroids; J44.9 Chronic obstructive pulmonary disease, unspecified; K21.9 Gastro-esophageal reflux disease without esophagitis; G47.19 Other hypersomnia; F51.3 Sleepwalking [somnambulism]; R07.89 Other chest pain; R05.8 Other specified cough | CPT/HCPCS: 99214 ==

== ENCOUNTER 2024-03-26 14:12 | Inpatient (IN) | payer MEDICARE, MEDICAID, SELFPAY ==
[2024-03-26] VITALS (31 sets, daily range): BP systolic 95–168; BP diastolic 61–108; PULSE 52–111; RESP 10–22; TEMP 36.4–37.2; O2SAT 93–98; BMI 41.3; BMI 41.0
--- NOTE | 2024-03-26 14:27 | ECG_ITS ---
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 Measurements Intervals [place] Rate: 69 P: 62 PA: 247 QRS: -24 QRSD: 77 T: 66 QT: 381 QTc: 411 Interpretive Statements SINUS RHYTHM WITH FIRST DEGREE AV BLOCK WITH OCCASIONAL ECTOPIC PREMATURE COMPLEXES BORDERLINE LEFT AXIS DEVIATION [QRS AXIS < -20] Compared to ECG 01/30/2024 19:10:53 No significant changes Electronically Signed On 03-26-2024 19:11:50 CDT by Bernie Park M.D. [id number]
[2024-03-26 14:53] LABS: Basophils % 0.3 %; Eosinophils # 0.2 10^3/uL (0.0-0.8); Eosinophils % 2.7 %; Hematocrit 38.4 % (37-53); Lymphocytes # 0.8 10^3/uL (0.8-4.8); Lymphocytes % 10.9 %; Mean Corpuscular HGB Conc 29.7 g/dL (30-55); Mean Corpuscular Hemoglobin 27.9 pg (27-33); Mean Corpuscular Volume 94.1 fl (82-101); Mean Platelet Volume 10.3 fL (7.4-10.4); Monocytes # 0.6 10^3/uL (0.2-0.9); Monocytes % 8.5 %; Neutrophils # 5.74 10^3/uL (1.8-7.7); Neutrophils % 77.1 %; Nucleated Red Blood Cells % 0 %; Platelet Count 185 10^3/cmm (157-399); Red Blood Count 4.08 10^6/uL (3.85-5.65); Red Cell Distribution Width 14.7 % (12.1-15.1); White Blood Count 7.44 10^3/uL (3.29-11.43)
--- NOTE | 2024-03-26 15:01 | W.ED.SOB ---
HPI - SOB/Dyspnea General: Chief Complaint: Shortness of Breath/Dyspnea Stated Complaint: SOB Time Seen by Provider: 03/26/24 14:16 History of Present Illness: HPI Narrative: 64-year-old man with a history of asthma/COPD overlap syndrome, chronic hypoxemic respiratory failure on 3 to 4 L nasal cannula at all times, cognitive impairment, who presents the emergency room by ambulance with shortness of breath and chest discomfort. He says he has not had any coronary disease but he does take isosorbide and has as needed nitro for chest pain. He took a couple which did not help. He says he feels a pressure all the way across his chest from the left side to the right side. He has had some cough. He has some swelling in his lower extremities, but he says that is been there for some time now. No known fevers. No abdominal pain. No vomiting. Review of Systems Narrative: Constitutional symptoms: Negative except as documented in HPI. Skin symptoms: Negative except as documented in HPI. Eye symptoms: Negative except as documented in HPI. ENMT symptoms: Negative except as documented in HPI. Respiratory symptoms: Negative except as documented in HPI. Cardiovascular symptoms: Negative except as documented in HPI. Gastrointestinal symptoms: Negative except as documented in HPI. Genitourinary symptoms: Negative except as documented in HPI. Musculoskeletal symptoms: Negative except as documented in HPI. Neurologic symptoms: Negative except as documented in HPI. Psychiatric symptoms: Negative except as documented in HPI. Endocrine symptoms: Negative except as documented in HPI. [facility] PFSH: Medical History Sleep walking Parasomnia Eosinophilic asthma Degenerative lumbar disc History of compression fracture of spine Left leg DVT 07/2022 Cognitive impairment GERD (gastroesophageal reflux disease) Asthma-COPD overlap syndrome Tremor Chronic neck pain Pulmonary emphysema with fibrosis of lung Surgical History History of cataract extraction bilateral History of tonsillectomy Hx of appendectomy Family History Other Dementia Stroke Denies family history of Diabetes CAD (coronary artery disease) Clotting disorder Hyperlipidemia Psychiatric illness Chronic kidney disease (CKD) Suicide Anesthesia complication Bleeding disorder Family history of premature coronary artery disease Lung disease Cancer Hypertension Social History Smoking and tobacco/nicotine status: former use of tobacco/nicotine Quit status (tobacco/nicotine): has quit using Year quit tobacco: 2017 Former quit date comment: 1pack per month x 2 years Second hand smoke exposure: No Alcohol intake: never Substance/Drug Use: never Physical Exam Narrative: EXAM NARRATIVE: General: Alert, no acute distress. Skin: Warm, dry. Head: Normocephalic, atraumatic. Neck: Supple, trachea midline. Eye: Extraocular movements are intact. Ears, nose, mouth and throat: Oral mucosa moist. Cardiovascular: Regular rate and rhythm, Normal peripheral perfusion. 1+ tibial edema Respiratory: some expiratory wheeze, mild increased wob, breath sounds are equal, Symmetrical chest wall expansion. Gastrointestinal: Soft, Nontender, Non distended Musculoskeletal: Normal ROM, no deformity. Neurological: Alert and oriented to person, place, time, and situation, No focal neurological deficit observed. Psychiatric: Cooperative, appropriate mood & affect. Course Vital Signs: Vital signs: Vital Signs Pulse Rate 62 03/26/24 16:00 Respiratory Rate 19 H 03/26/24 16:00 Blood Pressure 116/77 03/26/24 16:00 Pulse Oximetry 96 03/26/24 16:00 Oxygen Delivery Me thod Nasal Cannula 03/26/24 16:00 Oxygen Flow Rate 4 03/26/24 16:00 Fraction of Inspir ed Oxygen 35 03/26/24 15:22 MDM - SOB/Dyspnea Medical Decision Making Differential diagnosis for patient with shortness of breath includes but is not limited to and based on the above HPI, review of systems and physical exam: Pneumonia. Bronchitis. Asthma or COPD with acute exacerbation. Acute coronary syndrome / VT. Pulmonary embolism. Anxiety. Congestive heart failure. Viral infections including influenza and Covid-19. Atrial fibrillation. Anxiety. Pleural effusion. Pneumothorax. Workup: Lab work, chest X-ray and EKG ordered to evaluate, rule in and rule out above pathologies Lab Review: Laboratory results were reviewed and interpreted by myself the emergency room physician. BUN and creatinine are 28 and 0.8. BUN is a little bit elevated. His CO2 is 37 shows he has been compensating for his CO2 retention. White count is just 7. Hemoglobin is 11.4. AB.3 with a sat of 98% on 4 L nasal cannula. Patient has acute and chronic CO2 retention with some compensation but is no longer fully compensated. EKG: Time 1415. Rate 69. Normal sinus rhythm, No ST-T changes, some ectopy, normal CA & QRS intervals, This was reviewed and interpreted by myself the ER physician at 1419 Chest x-ray: Possibly a bit of a effusion on the left lower lung but otherwise no acute process. No infiltrate. No pneumothorax. This was reviewed and interpreted by myself the ER physician. I reviewed the patient's medical record. Reexamination: Patient seems to be tolerating the BiPAP fairly well. He seems to be feeling a little bit better. No altered mental status. No focal motor deficits. Family is present I talked with them about our plan. Consultation: I spoke with Dr. Garcia who recommends admission to the ICU. Assessment and plan: COPD with acute exacerbation Acute on chronic hypercapnic respiratory failure Chronic hypoxemic respiratory failure -Solu-Medrol on the ambulance. An updraft on the ambulance. 2 updrafts here. IV doxycycline here. Placed on a BiPAP. -I discussed the patient with the hospitalist on-call who is admitting the patient. - Discussed findings and plan with patient. Answered any questions. - All laboratory values were reviewed and interpreted personally by myself, the ER physician - All imaging was reviewed and interpreted personally by myself, the ER physician. - Evaluation and treatment of this problem were appropriate in the emergency setting -I spent a total of >35 minutes of critical care time managing the patient, independent of any other practitioner. -The time involved in the performance of separately reportable procedures was not counted towards critical care time. Lab Data 03/26/24 14:35 03/26/24 14:35 Labs/Radiology: Laboratory Results WBC 7.44 10^3/uL (3.29-11.43) 03/26/24 14:35 RBC 4.08 10^6/uL (3.85-5.65) 03/26/24 14:35 Hgb 11.40 g/dL (11.27-16.99) 03/26/24 14:35 Hct 38.4 % (37-53) 03/26/24 14:35 MCV 94.1 fl (82-101) 03/26/24 14:35 MCH 27.9 pg (27-33) 03/26/24 14:35 MCHC 29.7 g/dL (30-55) L 03/26/24 14:35 RDW 14.7 % (12.1-15.1) 03/26/24 14:35 Plt Count 185 10^3/cmm (157-399) 03/26/24 14:35 MPV 10.3 fL (7.4-10.4) 03/26/24 14:35 Neut % (Auto) 77.1 % 03/26/24 14:35 Lymph % (Auto) 10.9 % 03/26/24 14:35 [place] % (Auto) 8.5 % 03/26/24 14:35 Eos % (Auto) 2.7 % 03/26/24 14:35 Baso % (Auto) 0.3 % 03/26/24 14:35 Neut # (Auto) 5.74 10^3/uL (1.8-7.7) 03/26/24 14:35 Lymph # (Auto) 0.8 10^3/uL (0.8-4.8) 03/26/24 14:35 [place] # (Auto) 0.6 10^3/uL (0.2-0.9) 03/26/24 14:35 Eos # (Auto) 0.2 10^3/uL (0.0-0.8) 03/26/24 14:35 Baso # (Auto) 0.0 10^3/uL (0.0-0.1) 03/26/24 14:35 Nucleated RBC % (auto) 0 % 03/26/24 14:35 Nucleated RBCs # 0.0 /100WBC 03/26/24 14:35 D-Dimer 0.70 ug/mLFEU (0-0.59) H 03/26/24 14:35 Specimen Type Arterial 03/26/24 14:56 Sample Site Brachial, right 03/26/24 14:56 ABG pH 7.31 (7.35-7.45) L 03/26/24 14:56 ABG pCO2 75.0 mmHg (35-45) H* 03/26/24 14:56 ABG pO2 112.0 mmHg (80.0-100.0) H 03/26/24 14:56 ABG PO2/FiO2 Ratio 311 03/26/24 14:56 ABG HCO3 37.8 mmol/L (22-26) H 03/26/24 14:56 ABG O2 Saturation 98.8 03/26/24 14:56 ABG Base Excess 9.0 mmol/L (-2.0-2.0) H 03/26/24 14:56 Wilmer Test N/a 03/26/24 14:56 A-a O2 Gradient 7.0 mmHg (5-10) 03/26/24 14:56 Hematocrit 36.1 % (42-52) L 03/26/24 14:56 Hgb O2 Saturation 97.3 % (95-100) 03/26/24 14:56 Carboxyhemoglobin 1.0 %THgb (0.4-20.1) 03/26/24 14:56 Methemoglobin 0.5 % (0.4-1.5) 03/26/24 14:56 Total Hemoglobin 11.8 g/dL (14-18) L 03/26/24 14:56 Sodium 142.0 mmol/L (131-143) 03/26/24 14:56 Potassium 4.5 mmol/L (3.5-5.0) 03/26/24 14:56 Glucose 122.0 mg/dL (70-115) H 03/26/24 14:56 Ionized Calcium 1.2 mmol/L (1.1-1.4) 03/26/24 14:56 O2 Delivery Device Nc 03/26/24 14:56 O2 Liters/Min 4.0 % 03/26/24 14:56 FiO2 36.0 % 03/26/24 14:56 Six Sigma Project Manager ID Amh 03/26/24 14:56 Sodium 140 mmol/L (136-145) 03/26/24 14:35 Potassium 4.6 mmol/L (3.5-5.1) 03/26/24 14:35 Chloride 99 mmol/L (98-107) 03/26/24 14:35 Carbon Dioxide 37 mmol/L (22-29) H 03/26/24 14:35 Anion Gap 8.6 (5-19) 03/26/24 14:35 BUN 28 mg/dL (8-23) H 03/26/24 14:35 Creatinine 0.8 mg/dL (0.7-1.2) 03/26/24 14:35 GFR Calculation 97.0 mL/min (90-130) 03/26/24 14:35 Glucose 130 mg/dL (65-115) H 03/26/24 14:35 Calculated Osmolality 297 mOsm/kg (285-295) H 03/26/24 14:35 Lactic Acid 0.7 mmol/L (0.5-2.2) 03/26/24 14:35 Calcium 8.6 mg/dL (8.5-10.5) 03/26/24 14:35 Total Bilirubin 0.2 mg/dL (0.15-1.2) 03/26/24 14:35 AST 15 U/L (0-40) 03/26/24 14:35 ALT 21 U/L (0-41) 03/26/24 14:35 Alkaline Phosphatase 97 U/L (40-130) 03/26/24 14:35 Troponin T Baseline 10 ng/L (0-15) 03/26/24 14:35 C-Reactive Protein 14.5 mg/L (0.0-4.9) H 03/26/24 14:35 NT-Pro-B Natriuret Pep 166 pg/mL (0-125) H 03/26/24 14:35 Total Protein 6.8 g/dL (6.6-8.7) 03/26/24 14:35 Albumin 3.8 g/dL (3.5-5.2) 03/26/24 14:35 Globulin 3.0 g/dL (1.3-4.6) 03/26/24 14:35 XR interpretation done by ED provider, pending radiology final review Discharge Plan Discharge Patient Disposition: Admitted As Inpatient Clinical Impression: Acute on chronic respiratory failure with hypercapnia, Chronic hypoxemic respiratory failure Asthma with exacerbation Qualifiers: Asthma severity: severe Asthma persistence: persistent Qualified Code(s): J45.51 - Severe persistent asthma with (acute) exacerbation Condition: Stable Coding Level of Care Code ED Piano Player for Janet [place]
[2024-03-26 15:08] LABS: ABG PH Result 7.31 (7.35-7.45); Arterial Blood Gas Hematocrit 36.1 % (42-52); Blood Gas Operator Identificat AMH; Blood Gas Sample Site Brachial, right; Blood Gas Sample Type Arterial; HCO3 ABG 37.8 mmol/L (22-26); HGB O2 Sat 97.3 % (95-100); Ionized Calcium Level - ABG 1.2 mmol/L (1.1-1.4); Methemoglobin 0.5 % (0.4-1.5); Oxygen Device NC; Oxygen Saturation ABG 98.8; PO2 FiO2 Ratio Arterial Blood 311; Potassium Level - ABG 4.5 mmol/L (3.5-5.0); Total Hemoglobin 11.8 g/dL (14-18)
[2024-03-26 15:17] LABS: Lactic Sepsis W/Reflex 0.7 mmol/L (0.5-2.2)
[2024-03-26 15:19] LABS: Troponin(5th) Baseline 10 ng/L (0-15)
[2024-03-26 15:28] LABS: Alanine Aminotransferase 21 U/L (0-41); Albumin Level 3.8 g/dL (3.5-5.2); Alkaline Phosphatase 97 U/L (40-130); Anion Gap 8.6 (5-19); Aspartate Amino Transferase 15 U/L (0-40); Blood Urea Nitrogen 28 mg/dL (8-23); C Reactive Protein 14.5 mg/L (0.0-4.9); Calcium 8.6 mg/dL (8.5-10.5); Carbon Dioxide 37 mmol/L (22-29); Chloride 99 mmol/L (98-107); Creatinine Clr Calc Pharmacy 117.6964; Glucose 130 mg/dL (65-115); NT Pro B Type Natriuretic Pept 166 pg/mL (0-125); Osmolality Calculated 297 mOsm/kg (285-295); Potassium 4.6 mmol/L (3.5-5.1); Sodium 140 mmol/L (136-145); Total Bilirubin 0.2 mg/dL (0.15-1.2); Total Protein 6.8 g/dL (6.6-8.7)
--- NOTE | 2024-03-26 15:42 | XRR_ITS ---
PROCEDURE INFORMATION: Exam: XR Chest Exam date and time: 03/26/2024 4:24 PM Age: 64 years old Clinical indication: Dyspnea; Additional info: Shortness of breath TECHNIQUE: Imaging protocol: Radiologic exam of the chest. Views: 1 view. COMPARISON: CR XR chest 1V [id number] 01/30/2024 5:14 PM FINDINGS: Lungs: Unremarkable. No consolidation or mass. Pleural spaces: Unremarkable. No pleural effusion. No pneumothorax. Heart/Mediastinum: Unremarkable. No cardiomegaly. Bones/joints: Unremarkable. XR/XR chest 1V portable [id number] IMPRESSION: No acute findings.
--- NOTE | 2024-03-26 16:44 | P.HP_ITS ---
Providers/Chief Complaint 2 Primary Care Provider: Shweta Márquez DO Chief Complaint: SOB History of Present Illness Elvin Nunn is a 64 year old male with a past medical history of eosinophilic asthma, typically on 6 L/min home oxygen, history of multiple exacerbations and spite of using Fasenra, Brezteri, prednisone 5 mg p.o. dailyPresented with worsening of shortness of breath. Patient is stating that he has been taking Lasix but nothing has worked in his favor for last few days he has been feeling very short of breath, he has been tripoding as well. He has not noticed any diarrhea or fever. No active chest pain. In the ER he was diagnosed with COPD exacerbation he was put on BiPAP, he is awake and alert will take him to the ICU. Will request pulse ox study for Thursday X-ray showing mild congestion, no sign of consolidation D-dimer unremarkable, no active chest pain Review of Systems 2 Const: Denies: fever(s) Eyes: Denies: change in vision ENMT: Denies: throat pain Card: Reports: swelling of feet/ankles, dyspnea on exertion and orthopnea Resp: Reports: dyspnea GI: Denies: abdominal pain Medications/Allergies Home Medications Medication Instructions Recorded Confirmed Last Taken Type hsopital bed #1 ea 08/28/22 02/19/24 Unknown Rx wheelchair #1 ea 08/28/22 02/19/24 Unknown Rx primidone 50 mg tablet 100 mg PO BEDTIME 12/01/22 02/19/24 10/06/23 History A7005 Nebulizer Set #1 ea 10/13/23 02/19/24 Unknown Rx citalopram 40 mg tablet 40 mg PO DAILY #90 tabs 11/05/23 02/19/24 Unknown Rx montelukast 10 mg tablet 10 mg PO DAILY #90 tabs 11/05/23 02/19/24 Unknown Rx olanzapine 2.5 mg tablet (Zyprexa) 2.5 mg PO DAILY #90 tabs 11/05/23 02/19/24 Unknown Rx benralizumab 30 mg/mL subcutaneous 30 mg SUBCUT .q 8 weeks #1 mL 12/21/23 02/19/24 Unknown Rx auto-injector (Fasenra Pen) budesonide 160 mcg-glycopyr 9 2 inh inhalation BID 01/16/24 02/19/24 Unknown History mcg-formot 4.8 mcg/actuation HFA inhaler (Breztri Aerosphere) guaifenesin 600 mg tablet, 600 mg PO Q12H PRN Congestion 01/31/24 02/19/24 Unknown History extended release 12 hr (Mucinex) ipratropium 0.5 mg-albuterol 3 mg 3 ml inhalation Q6H PRN Shortness 01/31/24 02/19/24 Unknown History (2.5 mg base)/3 mL nebulization Of Breath Or Wheezing soln isosorbide mononitrate 30 mg 30 mg PO DAILY 01/31/24 02/19/24 Unknown History tablet,extended release 24 hr metoprolol tartrate 25 mg tablet 25 mg PO Q12H 01/31/24 02/19/24 1 Month Ago History ~01/01/24 see pharmacy comment pantoprazole 40 mg tablet,delayed 40 mg PO DAILY 01/31/24 02/19/24 Unknown History release levalbuterol tartrate 45 2 inh inhalation Q6H PRN shortness 02/09/24 02/19/24 Unknown Rx mcg/actuation aerosol inhaler of breath or wheezing #15 grams prednisone 5 mg tablet 5 mg PO DAILY #30 tabs 02/19/24 02/19/24 Unknown Rx atorvastatin 20 mg tablet See Rx Instructions .Route 03/07/24 Unknown Rx .COMPLEX #90 tabs gabapentin 300 mg capsule See Rx Instructions .Route 03/07/24 Unknown Rx .COMPLEX #90 caps nitroglycerin 0.4 mg sublingual See Rx Instructions .Route 03/16/24 Unknown Rx tablet .COMPLEX #25 tabs tezepelumab-ekko 210 mg/1.91 mL 210 mg (1.91 mL) SUBCUT .Q 4 weeks 03/22/24 Unknown Rx (110 mg/mL) subcutaneous pen #1.91 mL injector (Tezspire) Allergies Allergy/AdvReac Type Severity Reaction Status Date / Time No Known Allergies Allergy Verified 02/19/24 08:21 PFSH Acute 2 PFSH: Medical History Sleep walking Parasomnia Eosinophilic asthma Degenerative lumbar disc History of compression fracture of spine Left leg DVT 07/2022 Cognitive impairment GERD (gastroesophageal reflux disease) Asthma-COPD overlap syndrome Tremor Chronic neck pain Pulmonary emphysema with fibrosis of lung Surgical History History of cataract extraction bilateral History of tonsillectomy Hx of appendectomy Family History Other Dementia Stroke Denies family history of Diabetes CAD (coronary artery disease) Clotting disorder Hyperlipidemia Psychiatric illness Chronic kidney disease (CKD) Suicide Anesthesia complication Bleeding disorder Family history of premature coronary artery disease Lung disease Cancer Hypertension Social History Smoking and tobacco/nicotine status: former use of tobacco/nicotine Quit status (tobacco/nicotine): has quit using Year quit tobacco: 2017 Former quit date comment: 1pack per month x 2 years Second hand smoke exposure: No Alcohol intake: never Substance/Drug Use: never Vitals/I&O/Wt Last Vital Signs Pulse 62 03/26/24 16:00 Resp 19 H 03/26/24 16:00 BP 116/77 03/26/24 16:00 Pulse Ox 96 03/26/24 16:00 O2 Del Method Nasal Cannula 03/26/24 16:00 O2 Flow Rate 4 03/26/24 16:00 FiO2 35 03/26/24 15:22 Weight last 48 hrs Weight 123.377 kg Physical Exam 2 Narrative: Mild signs of CHF No extremity edema present Nonfocal neuroexam Currently on BiPAP Able to answer simple question Family at the bedside Mild cognitive impairment No new focal deficit S1, S2 Heart rate in 60s Blood pressure stable None tender distended abdomen Data 03/26/24 14:35 03/26/24 14:35 Micro: Microbiology 03/26/24 14:46 Blood Culture - Preliminary Blood SPECIMEN COLLECTED 03/26/24 14:35 Blood Culture - Preliminary Blood SPECIMEN COLLECTED A&P Assessment and plan (1) Cognitive impairment: (2) Asthma-COPD overlap syndrome: (3) Asthma with exacerbation: Qualifiers: Asthma persistence: persistent Asthma severity: severe Qualified Code(s): J45.51 - Severe persistent asthma with (acute) exacerbation (4) CHF exacerbation: Plan Acute on chronic COPD exacerbation Hypoxic hypercarbic respite failure Will see if you can get his BiPAP approval PULSE ox study Start him on high-dose IV steroids every 8 hours Start ceftriaxone and azithromycin X-rays not show any sign of infiltrate Possible right middle lobe infiltrate Patient take steroids for eosinophilic asthma Keep him on BiPAP admit to ICU Mild diastolic CHF exacerbation I will keep him on IV Lasix as well Bradycardia: He takes metoprolol, monitor for now Full code DVT prophylaxis on board In case patient starts spiking [fever will request respiratory panel Preserved action fraction no active sign of heart failure Patient will stay on cardiac diet Check mag and phosphorus level Patient will need overnight pulse ox study to get BiPAP approval we can do it on Thursday PRANAY: Noncompliant with CPAP machine at home Attestations 2 Medical Necessity Statement*: More than 2 midnights anticipated will need approval for BiPAP at home Diagnoses Cognitive impairment R41.89 Asthma-COPD overlap syndrome J44.9 Asthma with exacerbation J45.51 Asthma persistence: persistent Asthma severity: severe CHF exacerbation I50.9
--- NOTE | 2024-03-26 16:46 | ECG_ITS ---
[facility] Test Date: 2024-03-26 Pat Name: Elvin Nunn Department: Room: Gender: Male Nuclear Engineering Technician: : 1960 Requested By: Esmer Brooks Order Number: [id number] Tayler MD: Bernie Park M.D. Measurements Intervals [place] Rate: 61 P: 66 [place]: 249 QRS: -5 QRSD: 77 T: 62 QT: 385 QTc: 388 Interpretive Statements SINUS RHYTHM WITH FIRST DEGREE AV BLOCK Compared to ECG 03/26/2024 14:15:25 No significant changes Electronically Signed On 03-26-2024 19:22:03 CDT by Bernie Park M.D. [id number]
[2024-03-26] MEDS: doxycycline 100 MG in sodium chloride 0.9% (plus) 100 ML IV (16:50)
[2024-03-26] MEDS: albuterol 2.5 mg/3 mL Neb INHALATION (17:05)
[2024-03-26] MEDS: ipratropium-albuterol 3 mL Neb INHALATION (17:05)
[2024-03-26 17:14] LABS: Troponin 5 2HR 9.98 ng/L (0-15)
[2024-03-26 17:17] LABS: Troponin 5 2HR Delta -0.02 ABS# (0-10)
[2024-03-26 17:38] LABS: NT Pro B Type Natriuretic Pept 174 pg/mL (0-125)
[2024-03-26 18:06] LABS: Bilirubin Urine Neg (Negative); Blood Urine 2+ (Negative); Glucose Urine UA Norm (Normal); Ketones Urine 1+ (Negative); Leukocyte Esterase Urine Negative (Negative); Nitrate Urine Negative (Negative); Protein Urine Neg (Negative); Urine Appearance Clear (CLEAR); Urine Color Yellow (Yellow); Urobilinogen Urine Norm (Negative); pH Urine 5 (5-7)
[2024-03-26 18:07] LABS: Bacteria Urine TRACE /hpf; Mucus Urine TRACE /hpf; WBC Urine RARE /hpf (0-5)
[2024-03-26 18:08] LABS: Add Urine Culture? Yes
[2024-03-26] MEDS: FUROsemide 10 mg/mL SDV 2mL 20 MG IVP (18:16)
[2024-03-26] MEDS: methylPREDNISolone sod succ 40 mg/mL INJ IVP (20:40)
[2024-03-26] MEDS: montelukast sodium 10 mg Tablet PO (20:41)
[2024-03-26] MEDS: enoxaparin 40 mg/0.4 mL Syringe SUBCUT (20:41)
[2024-03-26 21:01] LABS: Troponin 5 6HR 8.15 ng/L (0-15); Troponin 5 6HR Delta -1.85 ng/L (0-12)
[2024-03-27] VITALS (40 sets, daily range): BP systolic 108–156; BP diastolic 64–96; PULSE 50–86; RESP 12–25; TEMP 36.4–37.1; O2SAT 91–96; BMI 41.3
[2024-03-27] MEDS: methylPREDNISolone sod succ 40 mg/mL INJ IVP ×3 (03:27→21:29)
[2024-03-27 04:09] LABS: Hematocrit 37.5 % (37-53); Lymphocytes # 0.8 10^3/uL (0.8-4.8); Lymphocytes % 8.1 %; Mean Corpuscular HGB Conc 30.9 g/dL (30-55); Mean Corpuscular Volume 90.6 fl (82-101); Mean Platelet Volume 10.6 fL (7.4-10.4); Monocytes # 0.3 10^3/uL (0.2-0.9); Monocytes % 3.4 %; Neutrophils # 8.74 10^3/uL (1.8-7.7); Nucleated Red Blood Cells % 0 %; Platelet Count 187 10^3/cmm (157-399); Red Blood Count 4.14 10^6/uL (3.85-5.65); Red Cell Distribution Width 14.8 % (12.1-15.1); White Blood Count 9.93 10^3/uL (3.29-11.43)
[2024-03-27 04:31] LABS: Anion Gap 10.9 (5-19); Blood Urea Nitrogen 28 mg/dL (8-23); C Reactive Protein 12.7 mg/L (0.0-4.9); Calcium 8.6 mg/dL (8.5-10.5); Carbon Dioxide 35 mmol/L (22-29); Chloride 100 mmol/L (98-107); Glomerular Filtration Rate 113.2 mL/min (90-130); Glucose 137 mg/dL (65-115); Magnesium 2.1 mg/dL (1.7-2.3); Osmolality Calculated 302 mOsm/kg (285-295); Phosphorus 2.8 mg/dL (2.5-4.5); Potassium 3.9 mmol/L (3.5-5.1); Sodium 142 mmol/L (136-145)
[2024-03-27 04:31] LABS: Arterial Blood Gas Hematocrit 36.5 % (42-52); Base Excess ABG 13.1 mmol/L (-2.0-2.0); Blood Gas Allen Test Pos; Blood Gas Sample Site Brachial, right; Blood Gas Sample Type Venous; HCO3 ABG 40.6 mmol/L (22-26); Oxygen Device BIPAP; PO2 ABG 24.6 mmHg (80.0-100.0); PO2 FiO2 Ratio Arterial Blood 70
[2024-03-27 04:35] LABS: ABG PCO2 66.1 mmHg (35-45)
[2024-03-27] MEDS: acetaminophen 500 mg Tablet PO (06:47)
[2024-03-27] MEDS: ipratropium-albuterol 3 mL Neb INHALATION ×3 (08:04→19:45)
[2024-03-27] MEDS: cefTRIAXone 1,000 MG in sodium chloride 0.9% (plus) 50 ML 100 MG IV (09:26)
[2024-03-27] MEDS: potassium chloride ER 20 mEq Tablet PO (09:26)
[2024-03-27] MEDS: sennosides-docusate Tablet 1 TAB PO (09:26)
[2024-03-27] MEDS: azithromycin 250 mg Tablet 500 MG PO (09:26)
[2024-03-27] MEDS: FUROsemide 10 mg/mL SDV 2mL 20 MG IVP (09:26)
[2024-03-27] MEDS: OLANZapine 5 mg TABLET 2.5 MG PO (09:26)
--- NOTE | 2024-03-27 12:56 | ECG_ITS ---
[facility] Test Date: 2024-03-27 Pat Name: Elvin Nunn Department: Room: ICU07 Gender: Male Monitor Worker: : 1960 Requested By: Disha Adams Order Number: [id number] Tayler MD: Bernie Park M.D. Measurements Intervals [place] Rate: 72 P: 43 [place]: 238 QRS: -11 QRSD: 92 T: 50 QT: 399 QTc: 439 Interpretive Statements SINUS RHYTHM WITH FIRST DEGREE AV BLOCK Compared to ECG 03/26/2024 16:46:37 No significant changes Electronically Signed On 03-27-2024 21:03:38 CDT by Bernie Park M.D. [id number]
--- NOTE | 2024-03-27 12:57 | P.PN_ITS ---
Subjective 2 Subjective: seen this am states he feels he is back to his baseline awaiting to see if bipap gets approved Vitals/I&O/Wt Last Vital Signs Temp 97.5 F L 03/27/24 04:00 Pulse 79 03/27/24 11:00 Resp 20 H 03/27/24 11:00 BP 139/64 03/27/24 11:00 Pulse Ox 92 03/27/24 11:00 O2 Del Method Nasal Cannula 03/27/24 11:00 O2 Flow Rate 4 03/27/24 11:00 FiO2 35 03/27/24 04:00 03/26/24 03/27/24 03/27/24 22:59 06:59 14:59 Intake Total 100 / 100 500 / 500 Output Total 1400 / 1400 400 / 1800 100 / 100 Balance -1300 / -1300 -400 / -1700 400 / 400 Weight last 48 hrs Weight 123.434 kg Weight 122.47 kg Weight 123.377 kg Physical Exam 2 Narrative: on 4L NC No extremity edema present Nonfocal neuroexam Currently on BiPAP Mild cognitive impairment No new focal deficit S1, S2 Heart rate in 60s Blood pressure stable None tender distended abdomen Urinary Catheter Management: Nguyen: Cath Placed During This Visit: yes Reason for Continuing Indwelling Catheter: Accurate Measurement of Urinary Output in Critically Ill Patients Urinary Catheter Date of Insertion: 03/26/24 Urinary Catheter Time of Insertion: 17:25 Data 03/27/24 03:45 03/27/24 03:45 Micro: Microbiology 03/26/24 17:29 Urine Culture - Preliminary Urine,Clean Catch 03/26/24 14:46 Blood Culture - Preliminary Blood SPECIMEN COLLECTED 03/26/24 14:35 Blood Culture - Preliminary Blood SPECIMEN COLLECTED A&P Assessment and plan (1) Cognitive impairment: (2) Asthma-COPD overlap syndrome: (3) Asthma with exacerbation: Qualifiers: Asthma persistence: persistent Asthma severity: severe Qualified Code(s): J45.51 - Severe persistent asthma with (acute) exacerbation (4) CHF exacerbation: Plan Acute on chronic COPD exacerbation Hypoxic hypercarbic respite failure Will see if you can get his BiPAP approval PULSE ox study Start him on high-dose IV steroids every 8 hours Start ceftriaxone and azithromycin X-rays not show any sign of infiltrate Possible right middle lobe infiltrate Patient take steroids for eosinophilic asthma Mild diastolic CHF exacerbation I will keep him on IV Lasix as well Bradycardia: He takes metoprolol, monitor for now Full code DVT prophylaxis on board In case patient starts spiking [fever will request respiratory panel Preserved action fraction no active sign of heart failure Patient will stay on cardiac diet Check mag and phosphorus level Patient will need overnight pulse ox study to get BiPAP approval we can do it on Thursday night PRANAY: Noncompliant with CPAP machine at home Todays plan 03/27 - transfer to u - on 4L NC, baseline - await bipap approval - overnight pulse ox study pending - continue home imdur, - complete med rec, list home meds, BP stable . Attestations 2 Medical Necessity Statement*: More than 2 midnights anticipated will need approval for BiPAP at home Diagnoses Cognitive impairment R41.89 Asthma-COPD overlap syndrome J44.9 Asthma with exacerbation J45.51 Asthma persistence: persistent Asthma severity: severe CHF exacerbation I50.9
--- NOTE | 2024-03-27 12:59 | PC.NURSE ---
Dr. Adams contacted for patient reporting 6/10 pain, order to restart home medication and get EKG and trop set.
[2024-03-27] MEDS: atorvastatin 40 mg Tablet 20 MG PO (13:33)
[2024-03-27] MEDS: isosorbide mononitrate ER 30 mg Tablet PO (13:33)
[2024-03-27 13:51] LABS: Troponin(5th) Baseline 8 ng/L (0-15)
--- NOTE | 2024-03-27 14:59 | PC.NURSE ---
Report called to second floor, patient to room 262. Unable to verify home meds, unable to contact patients sister who is his health care law specialist, [place] nurse notified of this.
--- NOTE | 2024-03-27 15:36 | PC.NURSE ---
Patient transferred to room 262, via wheelchair with 4L NC, paper chart left with charge nurse at front desk specialist with a list of patients home meds that sister brought in as patient was transferring.
[2024-03-27 16:29] LABS: Troponin 5 2HR 8.08 ng/L (0-15); Troponin 5 2HR Delta 0.08 ABS# (0-10)
[2024-03-27 19:42] LABS: Troponin 5 6HR 8.43 ng/L (0-15); Troponin 5 6HR Delta 0.43 ng/L (0-12)
--- NOTE | 2024-03-27 19:48 | PC.RESP ---
overnight pulse ox started on patient at 1946. Patient was on 5lpm, decreased to 4lpm NC patient states this is his baseline at home.
[2024-03-27] MEDS: enoxaparin 40 mg/0.4 mL Syringe SUBCUT (21:29)
[2024-03-27] MEDS: montelukast sodium 10 mg Tablet PO (21:31)
[2024-03-28] VITALS (9 sets, daily range): BP systolic 123–130; BP diastolic 72–82; PULSE 60–75; RESP 17–20; TEMP 36.4–36.9; O2SAT 91–98; BMI 29.8
--- NOTE | 2024-03-28 01:35 | PC.RESP ---
This RT went to check on patient, he was placed on bipap by VOCATIONAL SCHOOL TEACHER per nursing approx. 1 hour ago. Patient was taken back of bipap and placed on 4lpm NC for overnight pulse ox study. Nursing notified not to place patient on bipap during the study unless SpO2 drops below 88% for greater than 5 minutes and to notifiy respiratory.
[2024-03-28] MEDS: ipratropium-albuterol 3 mL Neb INHALATION ×2 (02:06→08:27)
[2024-03-28] MEDS: methylPREDNISolone sod succ 40 mg/mL INJ IVP (03:21)
[2024-03-28 05:58] LABS: Basophils % 0.1 %; Hematocrit 37.4 % (37-53); Lymphocytes # 0.6 10^3/uL (0.8-4.8); Lymphocytes % 5.4 %; Mean Corpuscular HGB Conc 30.2 g/dL (30-55); Mean Corpuscular Hemoglobin 27.4 pg (27-33); Mean Corpuscular Volume 90.6 fl (82-101); Mean Platelet Volume 11.3 fL (7.4-10.4); Monocytes # 0.6 10^3/uL (0.2-0.9); Monocytes % 5.8 %; Neutrophils # 9.63 10^3/uL (1.8-7.7); Neutrophils % 88.3 %; Nucleated Red Blood Cells % 0 %; Platelet Count 191 10^3/cmm (157-399); Red Blood Count 4.13 10^6/uL (3.85-5.65); Red Cell Distribution Width 15.4 % (12.1-15.1)
[2024-03-28 06:18] LABS: Blood Urea Nitrogen 28 mg/dL (8-23); Calcium 8.7 mg/dL (8.5-10.5); Carbon Dioxide 34 mmol/L (22-29); Chloride 100 mmol/L (98-107); Creatinine Clr Calc Pharmacy 99.8365; Glucose 158 mg/dL (65-115); Magnesium 2.2 mg/dL (1.7-2.3); Osmolality Calculated 299 mOsm/kg (285-295); Sodium 140 mmol/L (136-145)
[2024-03-28] MEDS: atorvastatin 40 mg Tablet 20 MG PO (08:41)
[2024-03-28] MEDS: pantoprazole DR 40 mg Tablet PO (08:41)
[2024-03-28] MEDS: azithromycin 250 mg Tablet 500 MG PO (08:42)
[2024-03-28] MEDS: potassium chloride ER 20 mEq Tablet PO (08:42)
[2024-03-28] MEDS: isosorbide mononitrate ER 30 mg Tablet PO (08:43)
[2024-03-28] MEDS: citalopram 20 mg Tablet 40 MG PO (08:43)
[2024-03-28] MEDS: sennosides-docusate Tablet 1 TAB PO (08:44)
[2024-03-28] MEDS: FUROsemide 10 mg/mL SDV 2mL 20 MG IVP (08:44)
[2024-03-28] MEDS: OLANZapine 5 mg TABLET 2.5 MG PO (08:44)
[2024-03-28] MEDS: cefTRIAXone 1,000 MG in sodium chloride 0.9% (plus) 50 ML 100 MG IV (08:45)
--- NOTE | 2024-03-28 11:11 | PC.SOCIAL ---
IMM Updated Updated pt on IMM. No questions voiced. Provided pt a copy. Initialed, dated, & timed a copy & placed in chart.
--- NOTE | 2024-03-28 11:18 | P.DS_ITS ---
Discharge Providers Date of Admission: 03/26/24 16:45 Date of Discharge: March 28, 2024 Attending Provider at Admission: Shanon Garcia MD Attending Provider at Discharge: Shanon Garcia MD Primary Care Provider: Shweta Márquez DO Diagnoses at Discharge Discharge Diagnosis (1) Cognitive impairment: Status: Chronic (2) Asthma-COPD overlap syndrome: Status: Chronic (3) Asthma with exacerbation: Status: Acute Qualifiers: Asthma persistence: persistent Asthma severity: severe Qualified Code(s): J45.51 - Severe persistent asthma with (acute) exacerbation (4) CHF exacerbation: Status: Acute Reason for Visit Reason for Visit: SOB Hospital Course Hospital Course 64-year-old male who was admitted to the hospital for COPD exacerbation he was hypercapnic, his symptoms improved with use of BiPAP, will try to get his BiPAP approved for home however overnight pulse ox study did not show significant desaturation other than 9 seconds which would not qualify him for BiPAP, patient has CPAP at home which she has not been using, he has been noncompliant, he is dependent on steroids for his asthma/COPD overlap syndrome. He does have a new referral to see a insurance claims clerk because Dr. Cabrera is leaving. At baseline he requires 4 L of oxygen, he is full code. Remained afebrile, no significant eosinophils noted during hospitalization, he remained afebrile hemodynamic stable. Dimer unremarkable to warrant PE study Physical Exam Narrative: Awake and alert GCS 15 Nonfocal neuroexam Currently on 4 L GCS 15 Urinary Catheter Management: Nguyen: Cath Placed During This Visit: yes Reason for Continuing Indwelling Catheter: Other Urinary Catheter Date of Insertion: 03/26/24 Urinary Catheter Time of Insertion: 17:25 Discharge Data Studies Completed and Pending Completed Studies During Hospitalization Category Date Time Status XR chest 1V portable [id number] Stat Exams 03/26/24 15:42 Completed Pending at discharge Category Date Time Status Blood Culture Stat Lab 03/26/24 14:46 Results Radiology Impressions Chest X-Ray 03/26/24 15:42 IMPRESSION: No acute findings. Laboratory Results WBC 10.90 10^3/uL (3.29-11.43) 03/28/24 05:22 RBC 4.13 10^6/uL (3.85-5.65) 03/28/24 05:22 Hgb 11.30 g/dL (11.27-16.99) 03/28/24 05:22 Hct 37.4 % (37-53) 03/28/24 05:22 MCV 90.6 fl (82-101) 03/28/24 05:22 MCH 27.4 pg (27-33) 03/28/24 05:22 MCHC 30.2 g/dL (30-55) 03/28/24 05:22 RDW 15.4 % (12.1-15.1) H 03/28/24 05:22 Plt Count 191 10^3/cmm (157-399) 03/28/24 05:22 MPV 11.3 fL (7.4-10.4) H 03/28/24 05:22 Neut % (Auto) 88.3 % 03/28/24 05:22 Lymph % (Auto) 5.4 % 03/28/24 05:22 Miner % (Auto) 5.8 % 03/28/24 05:22 Eos % (Auto) 0.0 % 03/28/24 05:22 Baso % (Auto) 0.1 % 03/28/24 05:22 Neut # (Auto) 9.63 10^3/uL (1.8-7.7) H 03/28/24 05:22 Lymph # (Auto) 0.6 10^3/uL (0.8-4.8) L 03/28/24 05:22 Miner # (Auto) 0.6 10^3/uL (0.2-0.9) 03/28/24 05:22 Eos # (Auto) 0.0 10^3/uL (0.0-0.8) 03/28/24 05:22 Baso # (Auto) 0.0 10^3/uL (0.0-0.1) 03/28/24 05:22 Nucleated RBC % (auto) 0 % 03/28/24 05:22 Nucleated RBCs # 0.0 /100WBC 03/28/24 05:22 D-Dimer 0.70 ug/mLFEU (0-0.59) H 03/26/24 14:35 Specimen Type Venous 03/27/24 04:25 Sample Site Brachial, right 03/27/24 04:25 ABG pH 7.40 (7.35-7.45) 03/27/24 04:25 ABG pCO2 66.1 mmHg (35-45) H* 03/27/24 04:25 ABG pO2 24.6 mmHg (80.0-100.0) L* 03/27/24 04:25 ABG PO2/FiO2 Ratio 70 03/27/24 04:25 ABG HCO3 40.6 mmol/L (22-26) H 03/27/24 04:25 ABG O2 Saturation 98.8 03/26/24 14:56 ABG Base Excess 13.1 mmol/L (-2.0-2.0) H 03/27/24 04:25 Wilmer Test Pos 03/27/24 04:25 A-a O2 Gradient 7.0 mmHg (5-10) 03/26/24 14:56 Hematocrit 36.5 % (42-52) L 03/27/24 04:25 Hgb O2 Saturation 97.3 % (95-100) 03/26/24 14:56 Carboxyhemoglobin 1.0 %THgb (0.4-20.1) 03/26/24 14:56 Methemoglobin 0.5 % (0.4-1.5) 03/26/24 14:56 Total Hemoglobin 11.8 g/dL (14-18) L 03/26/24 14:56 Sodium 142.0 mmol/L (131-143) 03/26/24 14:56 Potassium 4.5 mmol/L (3.5-5.0) 03/26/24 14:56 Glucose 122.0 mg/dL (70-115) H 03/26/24 14:56 Ionized Calcium 1.2 mmol/L (1.1-1.4) 03/26/24 14:56 O2 Delivery Device Bipap 03/27/24 04:25 O2 Liters/Min 4.0 % 03/26/24 14:56 FiO2 35.0 % 03/27/24 04:25 PEEP 8.0 cmH20 03/27/24 04:25 Ornamental Machine Operator ID [email or web address] 03/27/24 04:25 Sodium 140 mmol/L (136-145) 03/28/24 05:22 Potassium 4.0 mmol/L (3.5-5.1) 03/28/24 05:22 Chloride 100 mmol/L (98-107) 03/28/24 05:22 Carbon Dioxide 34 mmol/L (22-29) H 03/28/24 05:22 Anion Gap 10.0 (5-19) 03/28/24 05:22 BUN 28 mg/dL (8-23) H 03/28/24 05:22 Creatinine 0.8 mg/dL (0.7-1.2) 03/28/24 05:22 GFR Calculation 97.0 mL/min (90-130) 03/28/24 05:22 Glucose 158 mg/dL (65-115) H 03/28/24 05:22 Calculated Osmolality 299 mOsm/kg (285-295) H 03/28/24 05:22 Lactic Acid 0.7 mmol/L (0.5-2.2) 03/26/24 14:35 Calcium 8.7 mg/dL (8.5-10.5) 03/28/24 05:22 Phosphorus 2.8 mg/dL (2.5-4.5) 03/27/24 03:45 Magnesium 2.2 mg/dL (1.7-2.3) 03/28/24 05:22 Total Bilirubin 0.2 mg/dL (0.15-1.2) 03/26/24 14:35 AST 15 U/L (0-40) 03/26/24 14:35 ALT 21 U/L (0-41) 03/26/24 14:35 Alkaline Phosphatase 97 U/L (40-130) 03/26/24 14:35 Troponin T Baseline 8 ng/L (0-15) 03/27/24 13:13 Troponin T 120 Minute 8.08 ng/L (0-15) 03/27/24 15:53 Delta Troponin T 0.08 ABS# (0-10) 03/27/24 15:53 Troponin T Hi Sens 6Hr 8.43 ng/L (0-15) 03/27/24 18:59 Troponin T Hi Sens 6Hr Delta 0.43 ng/L (0-12) 03/27/24 18:59 C-Reactive Protein 12.7 mg/L (0.0-4.9) H 03/27/24 03:45 NT-Pro-B Natriuret Pep 166 pg/mL (0-125) H 03/26/24 14:35 NT-Pro-B Natriuret Pep 174 pg/mL (0-125) H 03/26/24 14:35 Total Protein 6.8 g/dL (6.6-8.7) 03/26/24 14:35 Albumin 3.8 g/dL (3.5-5.2) 03/26/24 14:35 Globulin 3.0 g/dL (1.3-4.6) 03/26/24 14:35 Urine Color Yellow (Yellow) 03/26/24 17:29 Urine Appearance Clear (CLEAR) 03/26/24 17:29 Urine pH 5 (5-7) 03/26/24 17:29 Ur Specific [place] 1.020 (1.005-1.030) 03/26/24 17:29 Urine Protein Neg (Negative) 03/26/24 17:29 Urine Glucose (UA) Norm (Normal) 03/26/24 17:29 Urine Ketones 1+ (Negative) H 03/26/24 17:29 Urine Blood 2+ (Negative) H 03/26/24 17:29 Urine Nitrate Negative (Negative) 03/26/24 17:29 Urine Bilirubin Neg (Negative) 03/26/24 17:29 Urine Urobilinogen Norm mg/dL (Negative) 03/26/24 17:29 Ur Leukocyte Esterase Negative (Negative) 03/26/24 17:29 Urine RBC 10-15 /hpf (0-2) H 03/26/24 17:29 Urine WBC Rare /hpf (0-5) 03/26/24 17:29 Ur Squamous Epith Cells None /hpf (0-5) 03/26/24 17:29 Amorphous Sediment Not Reportable 03/26/24 17:29 Urine Bacteria Trace /hpf (NONE) 03/26/24 17:29 Urine Mucus Trace /hpf 03/26/24 17:29 Vitals Last Vital Signs Temp 97.7 F 03/28/24 07:40 Pulse 70 03/28/24 08:34 Resp 18 03/28/24 08:27 BP 123/82 03/28/24 07:40 Pulse Ox 93 03/28/24 08:27 O2 Del Method Nasal Cannula 03/28/24 08:27 O2 Flow Rate 4 03/28/24 08:27 FiO2 35 03/27/24 15:55 Discharge Plan Discharge Patient Disposition: Home Condition: Stable Prescriptions: New azithromycin 500 mg tablet 500 mg PO DAILY 3 Days Qty: 3 0RF methylprednisolone [Methylpred DP] 4 mg tablets,dose pack See Rx Instructions .ROUTE .COMPLEX Qty: 21 0RF Rx Instructions: orally per package directions Continued (DME) wheelchair See Rx Instructions .Route .MEDSUPPLY Qty: 1 0RF Rx Instructions: As directed (DME) hsopital bed See Rx Instructions .Route .MEDSUPPLY Qty: 1 0RF Rx Instructions: As directed citalopram 40 mg tablet 40 mg PO DAILY Qty: 90 1RF olanzapine [Zyprexa] 2.5 mg tablet 2.5 mg PO DAILY Qty: 90 1RF montelukast 10 mg tablet 10 mg PO DAILY Qty: 90 1RF primidone 50 mg tablet 100 mg PO BEDTIME levalbuterol tartrate 45 mcg/actuation HFA aerosol inhaler 2 inh inhalation Q6H PRN (Reason: shortness of breath or wheezing) Qty: 15 5R F (DME) A7005 Nebulizer Set See Rx Instructions .Route .MEDSUPPLY Qty: 1 0RF Rx Instructions: As directed Fasenra Pen 30 mg/mL auto-injector 30 mg SUBCUT .q 8 weeks Qty: 1 6RF Rx Instructions: 30 mg injection once every 4 weeks, for first 3 doses.Then Once every 8 weeks atorvastatin 20 mg tablet See Rx Instructions .ROUTE .COMPLEX Qty: 90 0RF Dose Instruction: Take 1 tablet by mouth once daily Rx Instructions: Take 1 tablet by mouth once daily gabapentin 300 mg capsule See Rx Instructions .ROUTE .COMPLEX Qty: 90 0RF Dose Instruction: TAKE 1 CAPSULE BY MOUTH EVERY 8 HOURS Rx Instructions: TAKE 1 CAPSULE BY MOUTH EVERY 8 HOURS nitroglycerin 0.4 mg tablet, sublingual See Rx Instructions .ROUTE .COMPLEX Qty: 25 0RF Dose Instruction: DISSOLVE ONE TABLET UNDER THE TONGUE EVERY 5 MINUTES NEEDED FOR CHEST PAIN. DO NOT EXCEED A TOTAL OF 3 DOSES IN 15 MINUTES Rx Instructions: DISSOLVE ONE TABLET UNDER THE TONGUE EVERY 5 MINUTES NEEDED FOR CHEST PAIN. DO NOT EXCEED A TOTAL OF 3 DOSES IN 15 MINUTES Tezspire 210 mg/1.91 mL (110 mg/mL) pen injector 210 mg SUBCUT .Q 4 weeks Qty: 1.91 11RF Breztri Aerosphere 160-9-4.8 mcg/actuation HFA aerosol inhaler 2 inh inhalation BID isosorbide mononitrate 30 mg tablet extended release 24 hr 30 mg PO DAILY pantoprazole 40 mg tablet,delayed release (DR/EC) 40 mg PO DAILY metoprolol tartrate 25 mg tablet 25 mg PO Q12H guaifenesin [Mucinex] 600 mg Tablet Extended Release 12hr 600 mg PO Q12H PRN (Reason: Congestion) ipratropium-albuterol 0.5 mg-3 mg(2.5 mg base)/3 mL solution for nebulization 3 ml inhalation Q6H PRN (Reason: Shortness Of Breath Or Wheezing) prednisone 5 mg tablet 10 mg PO DAILY PRN (Reason: asthma) Discharge Orders: Discharge Order (Routine); Ordered 03/28/24 Ordered By: Shanon Garcia Referrals: Shweta Márquez DO [Primary Care Provider] - Patient Instructions: Opioid Safety Discharge Attestations Time Spent in Discharge Care*: greater than 30 min Quality Metrics Clinical Quality Measures [ No reported AMI, CVA or VTE this stay] Coding Level of Care Code Acute Code for Chg Fwd Diagnoses Cognitive impairment R41.89 Asthma-COPD overlap syndrome J44.9 Asthma with exacerbation J45.51 Asthma persistence: persistent Asthma severity: severe CHF exacerbation I50.9
== END 2024-03-28 12:42 | disposition home or self-care (01) | DRG 190 ==
LOC: ER 16:47 → ICU 18:05 → MEDSURG 03-27 15:26
PROVIDERS: Internal Medicine; Admitting Provider Internal Medicine; Emergency Provider Emergency Medicine; PCP Family Medicine; Visit Provider Internal Medicine
DX: J44.1 Chronic obstructive pulmonary disease with (acute) exacerbation (principal); I50.33 Acute on chronic diastolic (congestive) heart failure; J96.22 Acute and chronic respiratory failure with hypercapnia; J45.51 Severe persistent asthma with (acute) exacerbation; J96.11 Chronic respiratory failure with hypoxia; Z99.81 Dependence on supplemental oxygen; Z87.891 Personal history of nicotine dependence; Z99.89 Dependence on other enabling machines and devices; Z86.718 Personal history of other venous thrombosis and embolism; K21.9 Gastro-esophageal reflux disease without esophagitis; R25.1 Tremor, unspecified; G89.29 Other chronic pain; M54.2 Cervicalgia; G31.84 Mild cognitive impairment of uncertain or unknown etiology; R00.1 Bradycardia, unspecified; G47.33 Obstructive sleep apnea (adult) (pediatric); Z91.199 Patient's noncompliance with other medical treatment and regimen due to unspecified reason; Z79.52 Long term (current) use of systemic steroids
CPT/HCPCS: 36415; 36600; 51702; 71045; 80048; 80051; 80053; 81001; 82330; 82803; 82805; 83605; 83735; 83880; 84100; 84484; 85025; 85378; 86140; 87040; 87086; 93005; 94640; 94660; 94664; 96372; 96374; 96376; 99291; J0696; J1650; J1940; J2919; J3490; J7613; Q0144

== ENCOUNTER 2024-03-29 12:43 | Emergency (ER) | payer MEDICARE, MEDICAID, SELFPAY ==
[2024-03-29] VITALS (9 sets, daily range): BP systolic 95–131; BP diastolic 56–72; PULSE 50–74; RESP 15–24; TEMP 37; O2SAT 92–97
--- NOTE | 2024-03-29 13:02 | ECG_ITS ---
[facility] Test Date: 2024-03-29 Pat Name: Elvin Nunn Department: Room: Gender: Male Medical Grade Shoemaker: : 1960 Requested By: Campbell Brooks Order Number: [id number] Tayler MD: Bernie Park M.D. Measurements Intervals [place] Rate: 68 P: 60 [place]: 241 QRS: -35 QRSD: 85 T: 60 QT: 402 QTc: 428 Interpretive Statements SINUS RHYTHM WITH FIRST DEGREE AV BLOCK LEFT AXIS DEVIATION [QRS AXIS < -30] Compared to ECG 03/27/2024 12:56:46 Left-axis deviation now present Electronically Signed On 03-29-2024 21:56:49 CDT by Bernie Park M.D. [email or web address]/store/NU/[id number] f
--- NOTE | 2024-03-29 13:03 | XRR_ITS ---
PROCEDURE INFORMATION: Exam: XR Chest Exam date and time: 03/29/2024 1:13 PM Age: 64 years old Clinical indication: Cough and dyspnea; Additional info: Dyspnea/cough TECHNIQUE: Imaging protocol: Radiologic exam of the chest. Views: 1 view. COMPARISON: CR (CHEST, ) 03/26/2024 4:24 PM FINDINGS: Lungs: No focal consolidation. Platelike atelectasis in the mid right lung. Pleural spaces: No evidence of pneumothorax. No evidence of pleural effusion. Heart/Mediastinum: Cardiomediastinal silhouette is within normal limits. Bones/joints: No evidence of acute osseous abnormality. XR/XR chest 1V portable [id number] IMPRESSION: 1. No acute cardiopulmonary abnormality. If there is ongoing clinical concern, consider correlation with CT.
--- NOTE | 2024-03-29 13:35 | ED_ITS ---
HPI - Chest Pain 2 General: Chief Complaint: Chest Pain Stated Complaint: chest pain, sob Time Seen by Provider: 03/29/24 13:03 Source: patient Mode of arrival: ambulatory History of Present Illness: 64-year-old male presents emergency room with complaint of shortness of breath and chest discomfort he states he feels like there is an elephant sitting on his chest. He was discharged yesterday for an asthma exacerbation. Normally is on 4 L by nasal cannula he continues on that now. He is not having any productive cough or hemoptysis. He does complain of shortness of breath some cough and wheezing. He has a known history of coronary disease had an angiogram done in December 2022 showed normal left main normal circumflex and a proximal LAD lesion of 40 to 50% and normal right coronary. MD complaint: chest pain Associated symptoms: Reports dyspnea; Deny abdominal pain, diaphoresis, fever(s), leg edema, nausea, palpitations, sense of impending doom, syncope or vomiting Treatment prior to arrival: none Review of Systems 2 Const: Denies: fever(s), chills or diaphoresis Card: Reports: chest pain, edema and swelling of feet/ankles; Denies: palpitations or syncope Resp: Reports: dyspnea and non-productive cough GI: Denies: abdominal pain, nausea or vomiting : Denies: dysuria, urinary frequency or urinary urgency Musc: Denies: neck pain or back pain Skin/Breast: Denies: rash PFSH ED 2 PFSH: Medical History CHF exacerbation Chronic hypoxemic respiratory failure Acute on chronic respiratory failure with hypercapnia Asthma with exacerbation Sleep walking Parasomnia Eosinophilic asthma Degenerative lumbar disc History of compression fracture of spine Left leg DVT 07/2022 Cognitive impairment GERD (gastroesophageal reflux disease) Asthma-COPD overlap syndrome Tremor Chronic neck pain Pulmonary emphysema with fibrosis of lung Surgical History History of cataract extraction bilateral History of tonsillectomy Hx of appendectomy Family History Other Dementia Stroke Denies family history of Diabetes CAD (coronary artery disease) Clotting disorder Hyperlipidemia Psychiatric illness Chronic kidney disease (CKD) Suicide Anesthesia complication Bleeding disorder Family history of premature coronary artery disease Lung disease Cancer Hypertension Social History Smoking and tobacco/nicotine status: former use of tobacco/nicotine Quit status (tobacco/nicotine): has quit using Year quit tobacco: 2018 Former quit date comment: 1pack per month x 2 years Second hand smoke exposure: No Alcohol intake: never Substance/Drug Use: never Physical Exam 2 Const: GENERAL APPEARANCE: cooperative and comfortable O RIENTATION/CONSCIOUSNESS: Yes awake, Yes oriented to person, Yes oriented to place and Yes oriented to time HENMT: COMMON NORMALS: normocephalic, atraumatic and hearing grossly normal bilaterally HEAD & SCALP: normocephalic and atraumatic Resp: COMMON NORMALS: normal respiratory effort, No retractions and No use of accessory muscles AUSCULTATION: wheezes Cardio: COMMON NORMALS: regular rate, regular rhythm and No murmurs present (Cardio) RATE: regular rate RHYTHM: regular rhythm GI: COMMON NORMALS: Soft to palpation and No hepatosplenomegaly present A USCULTATION: Yes normoactive bowel sounds PALPATION: Yes Soft to palpation, No Tenderness to palpation present (GI), No Guarding due to palpation present (GI) and Yes No hepatosplenomegaly present Extremity: COMMON NORMALS: normal to inspection, capillary refill normal, no clubbing, cyanosis or edema, no calf tenderness and no pedal edema Neuro: SENSORIUM/ORIENTATION: Yes oriented to person, Yes oriented to place and Yes oriented to time Skin: COMMON NORMALS: no rashes or lesions noted GENERAL SKIN EXAM: no rashes or lesions noted Course 2 Vital Signs: Vital signs: Vital Signs Temperature 98.6 F 03/29/24 12:58 Pulse Rate 50 L 03/29/24 17:30 Respiratory Rate 15 03/29/24 17:30 Blood Pressure 98/64 03/29/24 17:30 Pulse Oximetry 92 03/29/24 17:30 Oxygen Delivery Me thod Nasal Cannula 03/29/24 17:30 Oxygen Flow Rate 4 03/29/24 13:49 MDM - Chest Pain Medical Decision Making Labs imaging and EKGs reviewed as found in chart. EKG does not show acute changes troponins did not show positive delta. Suspect his symptoms are related in part to GI and in part to respiratory. He did not get his medications that he was discharged with yesterday. Will give a single shot of dexamethasone here also gave him single oral tablet of Zithromax he can fill his other medicines tomorrow on begin that prescription. I discussed with cardiology and reviewed he had a angiogram a little over a year ago in December 2022 at that time he had a 40 to 50% proximal LAD lesion at the remainder of his coronaries were clear. Dr. Walsh did not feel pursuing any further cardiac workup at this point with no EKG changes and normal troponins. He is somewhat bradycardic and Dr. Walsh recommended decreasing metoprolol and increasing isosorbide. Have him follow-up with his primary care doctor within the next 4 to 5 days. Medical Records I reviewed the patient's medical records. Lab Data I reviewed the patient's lab results. 03/29/24 13:42 03/29/24 13:42 Radiology Impressions Chest X-Ray 03/29/24 13:03 IMPRESSION: 1. No acute cardiopulmonary abnormality. If there is ongoing clinical concern, consider correlation with CT. Laboratory Results WBC 9.68 10^3/uL (3.29-11.43) 03/29/24 13:42 RBC 4.29 10^6/uL (3.85-5.65) 03/29/24 13:42 Hgb 11.80 g/dL (11.27-16.99) 03/29/24 13:42 Hct 40.1 % (37-53) 03/29/24 13:42 MCV 93.5 fl (82-101) 03/29/24 13:42 MCH 27.5 pg (27-33) 03/29/24 13:42 MCHC 29.4 g/dL (30-55) L 03/29/24 13:42 RDW 15.7 % (12.1-15.1) H 03/29/24 13:42 Plt Count 186 10^3/cmm (157-399) 03/29/24 13:42 MPV 10.6 fL (7.4-10.4) H 03/29/24 13:42 Neut % (Auto) 69.3 % 03/29/24 13:42 Lymph % (Auto) 13.6 % 03/29/24 13:42 [place] % (Auto) 15.1 % 03/29/24 13:42 Eos % (Auto) 1.5 % 03/29/24 13:42 Baso % (Auto) 0.1 % 03/29/24 13:42 Neut # (Auto) 6.70 10^3/uL (1.8-7.7) 03/29/24 13:42 Lymph # (Auto) 1.3 10^3/uL (0.8-4.8) 03/29/24 13:42 [place] # (Auto) 1.5 10^3/uL (0.2-0.9) H 03/29/24 13:42 Eos # (Auto) 0.2 10^3/uL (0.0-0.8) 03/29/24 13:42 Baso # (Auto) 0.0 10^3/uL (0.0-0.1) 03/29/24 13:42 Nucleated RBC % (auto) 0 % 03/29/24 13:42 Nucleated RBCs # 0.0 /100WBC 03/29/24 13:42 Specimen Type Arterial 03/29/24 13:46 Sample Site Radial, left 03/29/24 13:46 ABG pH 7.40 (7.35-7.45) 03/29/24 13:46 ABG pCO2 58.3 mmHg (35-45) H 03/29/24 13:46 ABG pO2 112.0 mmHg (80.0-100.0) H 03/29/24 13:46 ABG HCO3 36.1 mmol/L (22-26) H 03/29/24 13:46 ABG O2 Saturation 97.9 03/29/24 13:46 ABG Base Excess 9.4 mmol/L (-2.0-2.0) H 03/29/24 13:46 Wilmer Test Pos 03/29/24 13:46 A-a O2 Gradient Not Reportable 03/29/24 13:46 Hematocrit 37.0 % (42-52) L 03/29/24 13:46 Hgb O2 Saturation 96.8 % (95-100) 03/29/24 13:46 Carboxyhemoglobin 0.6 %THgb (0.4-20.1) 03/29/24 13:46 Methemoglobin 0.6 % (0.4-1.5) 03/29/24 13:46 Total Hemoglobin 12.1 g/dL (14-18) L 03/29/24 13:46 Sodium 144.0 mmol/L (131-143) H 03/29/24 13:46 Potassium 3.5 mmol/L (3.5-5.0) 03/29/24 13:46 Glucose 158.0 mg/dL (70-115) H 03/29/24 13:46 Ionized Calcium 1.2 mmol/L (1.1-1.4) 03/29/24 13:46 O2 Delivery Device Nc 03/29/24 13:46 O2 Liters/Min 4.0 % 03/29/24 13:46 Seam Finisher ID [place] 03/29/24 13:46 Sodium 146 mmol/L (136-145) H 03/29/24 13:42 Potassium 3.8 mmol/L (3.5-5.1) 03/29/24 13:42 Chloride 103 mmol/L (98-107) 03/29/24 13:42 Carbon Dioxide 35 mmol/L (22-29) H 03/29/24 13:42 Anion Gap 11.8 (5-19) 03/29/24 13:42 BUN 30 mg/dL (8-23) H 03/29/24 13:42 Creatinine 0.9 mg/dL (0.7-1.2) 03/29/24 13:42 GFR Calculation 84.7 mL/min (90-130) L 03/29/24 13:42 Glucose 133 mg/dL (65-115) H 03/29/24 13:42 Calculated Osmolality 310 mOsm/kg (285-295) H 03/29/24 13:42 Calcium 8.7 mg/dL (8.5-10.5) 03/29/24 13:42 Total Bilirubin 0.2 mg/dL (0.15-1.2) 03/29/24 13:42 AST 16 U/L (0-40) 03/29/24 13:42 ALT 17 U/L (0-41) 03/29/24 13:42 Alkaline Phosphatase 91 U/L (40-130) 03/29/24 13:42 Troponin T Baseline 14 ng/L (0-15) 03/29/24 13:42 Troponin T 120 Minute 13.18 ng/L (0-15) 03/29/24 15:32 Delta Troponin T -0.82 ABS# (0-10) L 03/29/24 15:32 NT-Pro-B Natriuret Pep 389 pg/mL (0-125) H 03/29/24 13:42 Total Protein 6.1 g/dL (6.6-8.7) L 03/29/24 13:42 Albumin 3.8 g/dL (3.5-5.2) 03/29/24 13:42 Globulin 2.3 g/dL (1.3-4.6) 03/29/24 13:42 Lipase 13 U/L (13-60) 03/29/24 13:42 All radiology interpretation(s) finalized by discharge Discharge Plan Discharge Patient Disposition: Home Clinical Impression: Atypical chest pain Condition: Stable Prescriptions: Changed isosorbide mononitrate 30 mg tablet extended release 24 hr 60 mg PO DAILY Qty: 60 0RF metoprolol tartrate 25 mg tablet 12.5 mg PO Q12H Qty: 30 0RF No Action (DME) wheelchair See Rx Instructions .Route .MEDSUPPLY Qty: 1 0RF Rx Instructions: As directed (DME) hsopital bed See Rx Instructions .Route .MEDSUPPLY Qty: 1 0RF Rx Instructions: As directed citalopram 40 mg tablet 40 mg PO DAILY Qty: 90 1RF olanzapine [Zyprexa] 2.5 mg tablet 2.5 mg PO DAILY Qty: 90 1RF montelukast 10 mg tablet 10 mg PO DAILY Qty: 90 1RF primidone 50 mg tablet 100 mg PO BEDTIME levalbuterol tartrate 45 mcg/actuation HFA aerosol inhaler 2 inh inhalation Q6H PRN (Reason: shortness of breath or wheezing) Qty: 15 5RF (DME) A7005 Nebulizer Set See Rx Instructions .Route .MEDSUPPLY Qty: 1 0RF Rx Instructions: As directed nitroglycerin 0.4 mg tablet, sublingual See Rx Instructions .ROUTE .COMPLEX Qty: 25 0RF Dose Instruction: DISSOLVE ONE TABLET UNDER THE TONGUE EVERY 5 MINUTES NEEDED FOR CHEST PAIN. DO NOT EXCEED A TOTAL OF 3 DOSES IN 15 MINUTES Rx Instructions: DISSOLVE ONE TABLET UNDER THE TONGUE EVERY 5 MINUTES NEEDED FOR CHEST PAIN. DO NOT EXCEED A TOTAL OF 3 DOSES IN 15 MINUTES Tezspire 210 mg/1.91 mL (110 mg/mL) pen injector 210 mg SUBCUT .Q 4 weeks Qty: 1.91 11RF pantoprazole 40 mg tablet,delayed release (DR/EC) 40 mg PO DAILY prednisone 5 mg tablet 10 mg PO DAILY PRN (Reason: asthma) azithromycin 500 mg tablet 500 mg PO DAILY 3 Days Qty: 3 0RF methylprednisolone [Methylpred DP] 4 mg tablets,dose pack See Rx Instructions .ROUTE .COMPLEX Qty: 21 0RF Rx Instructions: orally per package directions atorvastatin 20 mg tablet 20 mg PO DAILY gabapentin 300 mg capsule 300 mg PO Q8H Discharge Orders: Discharge ED (Routine); Ordered 03/29/24 Ordered By: Campbell Espinoza Referrals: Katherine Horner NP [Primary Care Provider] - Discharge Diet: Usual diet Discharge Activity: Limit activity as instructed Patient Instructions: Opioid Safety, Pain Management Activity Restrictions/Additional Instructions: Thank you for choosing [facility] for your healthcare needs today. It is very important that you follow up as instructed or that you return to the Emergency Department should you have concerns or if your condition changes or worsens in any way. You were seen today for abnormal chest discomfort. Your cardiac enzymes and EKGs were normal. Suspect the chest discomfort may be combination of GI related or respiratory related recommend that you start the medicines that were prescribed at time of discharge yesterday. Additionally in reviewing her chart and reviewing with the on-call air compressor engineer we recommend that you increase your Imdur to 60 mg a day (2 tablets of the current isosorbide you have at home). And to decrease your metoprolol to tartrate to 2 half a tablet twice a day (also of the tablets you currently have at home. You were given a dose of steroids and a dose of antibiotics to cover for the medications prescribed to you at discharge yesterday. Continue to use albuterol as needed. Coding Level of Care Code ED Parking Lot Manager for Janet N[place]
[2024-03-29 13:57] LABS: ABG PCO2 58.3 mmHg (35-45); Base Excess ABG 9.4 mmol/L (-2.0-2.0); Blood Gas Allen Test Pos; Blood Gas Operator Identificat WALCI; Blood Gas Sample Site Radial, left; Blood Gas Sample Type Arterial; Carboxyhemoglobin 0.6 %THgb (0.4-20.1); HCO3 ABG 36.1 mmol/L (22-26); HGB O2 Sat 96.8 % (95-100); Ionized Calcium Level - ABG 1.2 mmol/L (1.1-1.4); Methemoglobin 0.6 % (0.4-1.5); Oxygen Device NC; Oxygen Saturation ABG 97.9; Potassium Level - ABG 3.5 mmol/L (3.5-5.0); Total Hemoglobin 12.1 g/dL (14-18)
[2024-03-29 14:01] LABS: Basophils % 0.1 %; Eosinophils # 0.2 10^3/uL (0.0-0.8); Eosinophils % 1.5 %; Hematocrit 40.1 % (37-53); Lymphocytes # 1.3 10^3/uL (0.8-4.8); Lymphocytes % 13.6 %; Mean Corpuscular HGB Conc 29.4 g/dL (30-55); Mean Corpuscular Hemoglobin 27.5 pg (27-33); Mean Corpuscular Volume 93.5 fl (82-101); Mean Platelet Volume 10.6 fL (7.4-10.4); Monocytes # 1.5 10^3/uL (0.2-0.9); Monocytes % 15.1 %; Neutrophils % 69.3 %; Nucleated Red Blood Cells % 0 %; Platelet Count 186 10^3/cmm (157-399); Red Blood Count 4.29 10^6/uL (3.85-5.65); Red Cell Distribution Width 15.7 % (12.1-15.1); White Blood Count 9.68 10^3/uL (3.29-11.43)
[2024-03-29] MEDS: ipratropium-albuterol 3 mL Neb INHALATION (14:01)
[2024-03-29 14:21] LABS: Troponin(5th) Baseline 14 ng/L (0-15)
[2024-03-29 14:37] LABS: Alanine Aminotransferase 17 U/L (0-41); Albumin Level 3.8 g/dL (3.5-5.2); Alkaline Phosphatase 91 U/L (40-130); Anion Gap 11.8 (5-19); Aspartate Amino Transferase 16 U/L (0-40); Blood Urea Nitrogen 30 mg/dL (8-23); Calcium 8.7 mg/dL (8.5-10.5); Carbon Dioxide 35 mmol/L (22-29); Chloride 103 mmol/L (98-107); Globulin 2.3 g/dL (1.3-4.6); Glomerular Filtration Rate 84.7 mL/min (90-130); Glucose 133 mg/dL (65-115); Lipase 13 U/L (13-60); NT Pro B Type Natriuretic Pept 389 pg/mL (0-125); Osmolality Calculated 310 mOsm/kg (285-295); Potassium 3.8 mmol/L (3.5-5.1); Sodium 146 mmol/L (136-145); Total Bilirubin 0.2 mg/dL (0.15-1.2); Total Protein 6.1 g/dL (6.6-8.7)
--- NOTE | 2024-03-29 14:42 | PC.PHAR ---
PT DISCHARGED 03/28/24-FAMILY STATES ZITHROMAX 500 AND MEDROL DOSEPAK NOT SENT TO PHARMACY TO FILL. PHONED FERNY NI FOR VERIFICATION. PHARMACY STATES RX'S ARE READY FOR CHEMISTRY DEPARTMENT CHAIR.
--- NOTE | 2024-03-29 14:58 | ECG_ITS ---
[facility] Test Date: 2024-03-29 Pat Name: Elvin Nunn Department: Room: Gender: Male Commercial Sales Representative: : 1960 Requested By: Campbell Brooks Order Number: [id number] Tayler MD: Bernie Park M.D. Measurements Intervals [place] Rate: 52 P: 48 NV: 253 QRS: 3 QRSD: 76 T: 38 QT: 422 QTc: 395 Interpretive Statements SINUS BRADYCARDIA WITH FIRST DEGREE AV BLOCK Compared to ECG 03/29/2024 12:49:06 Sinus rhythm no longer present Left-axis deviation no longer present Electronically Signed On 03-29-2024 22:14:49 CDT by Bernie Park M.D. [id number]
[2024-03-29 15:56] LABS: Troponin 5 2HR 13.18 ng/L (0-15)
[2024-03-29 15:57] LABS: Troponin 5 2HR Delta -0.82 ABS# (0-10)
[2024-03-29] MEDS: acetaminophen 500 mg Tablet 1000 MG PO (16:44)
--- NOTE | 2024-03-29 16:49 | ECG_ITS ---
[facility] Test Date: 2024-03-29 Pat Name: Elvin Nunn Department: Room: Gender: Male Radiology Physician Assistant: : 1960 Requested By: Campbell Brooks Order Number: [id number] Tayler MD: Bernie Park M.D. Measurements Intervals [place] Rate: 52 P: 50 VT: 252 QRS: 1 QRSD: 74 T: 46 QT: 433 QTc: 403 Interpretive Statements SINUS BRADYCARDIA WITH FIRST DEGREE AV BLOCK Compared to ECG 03/29/2024 14:58:59 No significant changes Electronically Signed On 03-29-2024 22:00:26 CDT by Bernie Park M.D. [email or web address] wert [email or web address] [email or web address] Earth [email or web address]/store/[id number]
[2024-03-29] MEDS: lidocaine 2% viscous 15 ML, aluminum-mag hydrox-simethicon 30 ML, sucralfate oral liq 1 GM PO (17:26)
[2024-03-29] MEDS: azithromycin 250 mg Tablet 500 MG PO (18:12)
[2024-03-29] MEDS: dexamethasone 10 mg/mL INJ IM (18:12)
== END 2024-03-29 18:27 | disposition home or self-care (01) ==
PROVIDERS: Emergency Provider Family Medicine; PCP Nurse Practitioner Family
DX: R07.89 Other chest pain (principal); Z87.891 Personal history of nicotine dependence; I50.9 Heart failure, unspecified; J44.9 Chronic obstructive pulmonary disease, unspecified
CPT/HCPCS: 36415; 36600; 71045; 80051; 80053; 82330; 82805; 83690; 83880; 84484; 85025; 93005; 94640; 96372; 99285; J1100; Q0144

== ENCOUNTER 2024-04-01 20:57 | Inpatient (IN) | payer MEDICARE, MEDICAID, SELFPAY ==
[2024-04-01] VITALS (10 sets, daily range): BP systolic 123–135; BP diastolic 82–90; PULSE 55–84; RESP 15–21; TEMP 36.7; O2SAT 95–97; BMI 41.5
--- NOTE | 2024-04-01 20:58 | XRR_ITS ---
PROCEDURE INFORMATION: Exam: XR Chest Exam date and time: 04/01/2024 9:06 PM Age: 64 years old Clinical indication: Dyspnea; Additional info: SOB TECHNIQUE: Imaging protocol: Radiologic exam of the chest. Views: 1 view. COMPARISON: CR XR chest 1V portable [id number] 03/29/2024 1:13 PM FINDINGS: Lungs: Linear scarring in the right mid and lower lung. No consolidation. Pleural spaces: Unremarkable. No pleural effusion. No pneumothorax. Heart/Mediastinum: Unremarkable. No cardiomegaly. Bones/joints: Unremarkable. XR/XR chest 1V portable [id number] IMPRESSION: No acute findings.
--- NOTE | 2024-04-01 21:04 | ECG_ITS ---
[facility] Test Date: 2024-04-01 Pat Name: Elvin Nunn Department: Room: Gender: Male Nailhead Operator: : 1960 Requested By: Bereket Caruso Order Number: [id number] Tayler MD: Kedar Coyle M.D. Measurements Intervals [place] Rate: 68 P: 69 NV: 212 QRS: -55 QRSD: 77 T: 67 QT: 369 QTc: 393 Interpretive Statements SINUS RHYTHM WITH FIRST DEGREE AV BLOCK LEFT AXIS DEVIATION [QRS AXIS < -30] LOW QRS VOLTAGE IN EXTREMITY LEADS [QRS DEFLECTION < 0.5 mV IN LIMB LEADS] Compared to ECG 03/29/2024 16:49:17 Left-axis deviation now present Low QRS voltage now present Sinus bradycardia no longer present Electronically Signed On 04-03-2024 19:25:19 CDT by Kedar Coyle M.D. [email or web address]/store/[id number]
--- NOTE | 2024-04-01 21:08 | W.ED.SOB ---
HPI - SOB/Dyspnea General: Chief Complaint: Shortness of Breath/Dyspnea Stated Complaint: SOB Time Seen by Provider: 04/01/24 20:57 Source: patient and EMS Mode of arrival: EMS Limitations: no limitations History of Present Illness: HPI Narrative: 64-year-old male with a history of COPD states having increasing shortness of breath tonight EMS arrived he was tachypneic he is tachypneic here only able to speak in 2 word sentences with wheezing he denies any chest pain denies any fevers he denies any worsening proving factors at this time. Associated symptoms: Deny abdominal pain, chest pain, fever(s), nausea or vomiting Review of Systems Const: Denies: fever(s), chills, body aches or change in appetite ENMT: Denies: throat pain or dental pain Card: Denies: chest pain Resp: Reports: dyspnea GI: Denies: abdominal pain, nausea, vomiting or diarrhea Musc: Denies: neck pain or back pain Skin/Breast: Denies: rash Neuro: Denies: headache(s) PFSH ED PFSH: Medical History CHF exacerbation Chronic hypoxemic respiratory failure Acute on chronic respiratory failure with hypercapnia Asthma with exacerbation Sleep walking Parasomnia Eosinophilic asthma Degenerative lumbar disc History of compression fracture of spine Left leg DVT 07/2022 Cognitive impairment GERD (gastroesophageal reflux disease) Asthma-COPD overlap syndrome Tremor Chronic neck pain Pulmonary emphysema with fibrosis of lung Surgical History History of cataract extraction bilateral History of tonsillectomy Hx of appendectomy Family History Other Dementia Stroke Denies family history of Diabetes CAD (coronary artery disease) Clotting disorder Hyperlipidemia Psychiatric illness Chronic kidney disease (CKD) Suicide Anesthesia complication Bleeding disorder Family history of premature coronary artery disease Lung disease Cancer Hypertension Social History Smoking and tobacco/nicotine status: former use of tobacco/nicotine Quit status (tobacco/nicotine): has quit using Year quit tobacco: 2017 Former quit date comment: 1pack per month x 2 years Second hand smoke exposure: No Alcohol intake: never Substance/Drug Use: never Physical Exam Const: COMMON NORMALS: patient oriented x3 GENERAL APPEARANCE: in distress HENMT: COMMON NORMALS: normocephalic and atraumatic HEAD & SCALP: normocephalic and atraumatic Eye: COMMON NORMALS: Equal, round and reactive pupils present and EOMs intact bilaterally PUPIL: Yes Equal, round and reactive pupils present Neck/C-Spine: COMMON NORMALS: full ROM and supple Chest: COMMONS NORMALS: normal inspection of the chest Resp: EFFORT & INSPECTION: Yes tachypneic and Yes respiratory distress AUSCULTATION: wheezes Cardio: COMMON NORMALS: regular rate, regular rhythm and No murmurs present (Cardio) RATE: regular rate RHYTHM: regular rhythm GI: COMMON NORMALS: Normal to inspection, nondistended, normoactive bowel sounds present, Soft to palpation, non-tender and no masses PALPATION: Yes Soft to palpation Extremity: COMMON NORMALS: normal to inspection and full ROM Neuro: COMMON NORMALS: patient oriented x3, moves all extremities and no focal motor deficits Psych: COMMON NORMALS: mental status grossly normal, Normal thought process present and cooperative THOUGHT PROCESS: Normal thought process present Skin: COMMON NORMALS: no rashes or lesions noted and no wounds GENERAL SKIN EXAM: no rashes or lesions noted Course Vital Signs: Vital signs: Vital Signs Temperature 98.1 F 04/01/24 20:59 Pulse Rate 69 04/01/24 21:25 Respiratory Rate 20 H 04/01/24 21:13 Blood Pressure 123/90 04/01/24 20:59 Pulse Oximetry 97 04/01/24 21:25 Oxygen Delivery Me thod Nasal Cannula 04/01/24 21:25 Oxygen Flow Rate 4 04/01/24 21:25 MDM - SOB/Dyspnea Medical Decision Making Patient presents here with COPD exacerbation he did have wheezing decreased air movement he arrived he is improving here after his breathing treatments he still having some dyspnea he was able to wean him back down to his 4 L spoke to the hospitalist will admit at this time. He has no signs of cardiac cause no signs of pulm embolism. Medical Records I reviewed the patient's medical records. Lab Data I reviewed the patient's lab results. 04/01/24 21:17 04/01/24 21:17 Labs/Radiology: Radiology Impressions Chest X-Ray 04/01/24 20:58 IMPRESSION: No acute findings. Laboratory Results WBC 10.76 10^3/uL (3.29-11.43) 04/01/24 21:17 RBC 4.33 10^6/uL (3.85-5.65) 04/01/24 21:17 Hgb 12.30 g/dL (11.27-16.99) 04/01/24 21:17 Hct 41.0 % (37-53) 04/01/24 21:17 MCV 94.7 fl (82-101) 04/01/24 21:17 MCH 28.4 pg (27-33) 04/01/24 21:17 MCHC 30.0 g/dL (30-55) 04/01/24 21:17 RDW 15.1 % (12.1-15.1) 04/01/24 21:17 Plt Count 188 10^3/cmm (157-399) 04/01/24 21:17 MPV 10.2 fL (7.4-10.4) 04/01/24 21:17 Neut % (Auto) 80.7 % 04/01/24 21:17 Lymph % (Auto) 8.8 % 04/01/24 21:17 [place] % (Auto) 9.5 % 04/01/24 21:17 Eos % (Auto) 0.0 % 04/01/24 21:17 Baso % (Auto) 0.1 % 04/01/24 21:17 Neut # (Auto) 8.68 10^3/uL (1.8-7.7) H 04/01/24 21:17 Lymph # (Auto) 1.0 10^3/uL (0.8-4.8) 04/01/24 21:17 [place] # (Auto) 1.0 10^3/uL (0.2-0.9) H 04/01/24 21:17 Eos # (Auto) 0.0 10^3/uL (0.0-0.8) 04/01/24 21:17 Baso # (Auto) 0.0 10^3/uL (0.0-0.1) 04/01/24 21:17 Nucleated RBC % (auto) 0 % 04/01/24 21:17 Nucleated RBCs # 0.0 /100WBC 04/01/24 21:17 Specimen Type Arterial 04/01/24 21:17 Sample Site Radial, left 04/01/24 21:17 ABG pH 7.38 (7.35-7.45) 04/01/24 21:17 ABG pCO2 63.5 mmHg (35-45) H* 04/01/24 21:17 ABG pO2 131.0 mmHg (80.0-100.0) H 04/01/24 21:17 ABG HCO3 37.3 mmol/L (22-26) H 04/01/24 21:17 ABG Base Excess 9.9 mmol/L (-2.0-2.0) H 04/01/24 21:17 Wilmer Test Pos 04/01/24 21:17 Hematocrit 38.3 % (42-52) L 04/01/24 21:17 Hgb O2 Saturation 98.2 % (95-100) 04/01/24 21:17 Carboxyhemoglobin 0.9 %THgb (0.4-20.1) 04/01/24 21:17 Methemoglobin 0.5 % (0.4-1.5) 04/01/24 21:17 Total Hemoglobin 12.5 g/dL (14-18) L 04/01/24 21:17 O2 Delivery Device Nc 04/01/24 21:17 O2 Liters/Min 4.0 % 04/01/24 21:17 Internal Control Consultant ID [email or web address] 04/01/24 21:17 Sodium 143 mmol/L (136-145) 04/01/24 21:17 Potassium 4.7 mmol/L (3.5-5.1) 04/01/24 21:17 Chloride 102 mmol/L (98-107) 04/01/24 21:17 Carbon Dioxide 36 mmol/L (22-29) H 04/01/24 21:17 Anion Gap 9.7 (5-19) 04/01/24 21:17 BUN 34 mg/dL (8-23) H 04/01/24 21:17 Creatinine 0.7 mg/dL (0.7-1.2) 04/01/24 21:17 GFR Calculation 113.2 mL/min (90-130) 04/01/24 21:17 Glucose 121 mg/dL (65-115) H 04/01/24 21:17 Calculated Osmolality 305 mOsm/kg (285-295) H 04/01/24 21:17 Calcium 8.9 mg/dL (8.5-10.5) 04/01/24 21:17 Total Bilirubin 0.2 mg/dL (0.15-1.2) 04/01/24 21:17 AST 14 U/L (0-40) 04/01/24 21:17 ALT 26 U/L (0-41) 04/01/24 21:17 Alkaline Phosphatase 87 U/L (40-130) 04/01/24 21:17 NT-Pro-B Natriuret Pep 73 pg/mL (0-125) 04/01/24 21:17 Total Protein 6.7 g/dL (6.6-8.7) 04/01/24 21:17 Albumin 3.8 g/dL (3.5-5.2) 04/01/24 21:17 Globulin 2.9 g/dL (1.3-4.6) 04/01/24 21:17 All radiology interpretation(s) finalized by discharge EKG Data EKG 1: I personally reviewed and interpreted this EKG as follows: EKG Interpretation Date: 04/01/24 EKG interpretation time: 21:04 Interpretation: nsr rh [address] elevation qrs 77 qtc 386 Discharge Plan Discharge Patient Disposition: Admitted As Inpatient Clinical Impression: Acute exacerbation of chronic obstructive airways disease Prescriptions: No Action (DME) wheelchair See Rx Instructions .Route .MEDSUPPLY Qty: 1 0RF Rx Instructions: As directed (DME) hsopital bed See Rx Instructions .Route .MEDSUPPLY Qty: 1 0RF Rx Instructions: As directed citalopram 40 mg tablet 40 mg PO DAILY Qty: 90 1RF olanzapine [Zyprexa] 2.5 mg tablet 2.5 mg PO DAILY Qty: 90 1RF montelukast 10 mg tablet 10 mg PO DAILY Qty: 90 1RF primidone 50 mg tablet 100 mg PO BEDTIME levalbuterol tartrate 45 mcg/actuation HFA aerosol inhaler 2 inh inhalation Q6H PRN (Reason: shortness of breath or wheezing) Qty: 15 5RF (DME) A7005 Nebulizer Set See Rx Instructions .Route .MEDSUPPLY Qty: 1 0RF Rx Instructions: As directed nitroglycerin 0.4 mg tablet, sublingual See Rx Instructions .ROUTE .COMPLEX Qty: 25 0RF Dose Instruction: DISSOLVE ONE TABLET UNDER THE TONGUE EVERY 5 MINUTES NEEDED FOR CHEST PAIN. DO NOT EXCEED A TOTAL OF 3 DOSES IN 15 MINUTES Rx Instructions: DISSOLVE ONE TABLET UNDER THE TONGUE EVERY 5 MINUTES NEEDED FOR CHEST PAIN. DO NOT EXCEED A TOTAL OF 3 DOSES IN 15 MINUTES Tezspire 210 mg/1.91 mL (110 mg/mL) pen injector 210 mg SUBCUT .Q 4 weeks Qty: 1.91 11RF pantoprazole 40 mg tablet,delayed release (DR/EC) 40 mg PO DAILY prednisone 5 mg tablet 10 mg PO DAILY PRN (Reason: asthma) methylprednisolone [Methylpred DP] 4 mg tablets,dose pack See Rx Instructions .ROUTE .COMPLEX Qty: 21 0RF Rx Instructions: orally per package directions atorvastatin 20 mg tablet 20 mg PO DAILY gabapentin 300 mg capsule 300 mg PO Q8H isosorbide mononitrate 30 mg tablet extended release 24 hr 60 mg PO DAILY Qty: 60 0RF metoprolol tartrate 25 mg tablet 12.5 mg PO Q12H Qty: 30 0RF Referrals: Katherine Horner NP [Primary Care Provider] - Coding Level of Care Code ED Automobile Parts Assembler for Janet Nj
[2024-04-01] MEDS: ipratropium-albuterol 3 mL Neb INHALATION (21:13)
[2024-04-01] MEDS: albuterol 2.5 mg/3 mL Neb INHALATION (21:13)
[2024-04-01] MEDS: methylPREDNISolone sod succ 125 mg/2 mL INJ IVP (21:17)
[2024-04-01 21:25] LABS: Basophils % 0.1 %; Lymphocytes % 8.8 %; Mean Corpuscular Hemoglobin 28.4 pg (27-33); Mean Corpuscular Volume 94.7 fl (82-101); Mean Platelet Volume 10.2 fL (7.4-10.4); Monocytes % 9.5 %; Neutrophils # 8.68 10^3/uL (1.8-7.7); Neutrophils % 80.7 %; Nucleated Red Blood Cells % 0 %; Platelet Count 188 10^3/cmm (157-399); Red Blood Count 4.33 10^6/uL (3.85-5.65); Red Cell Distribution Width 15.1 % (12.1-15.1); White Blood Count 10.76 10^3/uL (3.29-11.43)
[2024-04-01 21:28] LABS: ABG PH Result 7.38 (7.35-7.45); Arterial Blood Gas Hematocrit 38.3 % (42-52); Base Excess ABG 9.9 mmol/L (-2.0-2.0); Blood Gas Allen Test Pos; Blood Gas Sample Site Radial, left; Blood Gas Sample Type Arterial; Carboxyhemoglobin 0.9 %THgb (0.4-20.1); HCO3 ABG 37.3 mmol/L (22-26); HGB O2 Sat 98.2 % (95-100); Methemoglobin 0.5 % (0.4-1.5); Oxygen Device NC; Total Hemoglobin 12.5 g/dL (14-18)
[2024-04-01 21:29] LABS: ABG PCO2 63.5 mmHg (35-45)
[2024-04-01 21:53] LABS: Alanine Aminotransferase 26 U/L (0-41); Albumin Level 3.8 g/dL (3.5-5.2); Alkaline Phosphatase 87 U/L (40-130); Anion Gap 9.7 (5-19); Aspartate Amino Transferase 14 U/L (0-40); Blood Urea Nitrogen 34 mg/dL (8-23); Calcium 8.9 mg/dL (8.5-10.5); Carbon Dioxide 36 mmol/L (22-29); Chloride 102 mmol/L (98-107); Creatinine Clr Calc Pharmacy 117.9328; Globulin 2.9 g/dL (1.3-4.6); Glomerular Filtration Rate 113.2 mL/min (90-130); Glucose 121 mg/dL (65-115); NT Pro B Type Natriuretic Pept 73 pg/mL (0-125); Osmolality Calculated 305 mOsm/kg (285-295); Potassium 4.7 mmol/L (3.5-5.1); Sodium 143 mmol/L (136-145); Total Bilirubin 0.2 mg/dL (0.15-1.2); Total Protein 6.7 g/dL (6.6-8.7)
--- NOTE | 2024-04-01 22:50 | PM.HP ---
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 He was brought in by EMS. He was tachypneic and unable to speak in 2 word sentences. Had active wheezing. Was given Solu-Medrol 125 and DuoNeb. Patient did start to feel better and weaned down to 4 L nasal cannula. When he arrived to the ER he was on 6 L. Patient used to follow-up with pulmonology however pulmonology no longer available. He will be setting up with a new healthcare network consultant. Patient has been admitted for COPD flare December, January, February and March. As for the last pulmonology note on 02/19/2024 it indicates that patient is on Fasenra, Breztri, and albuterol tartrate. He was continuing to have issues therefore was switched to Nucala and low-dose prednisone was added. At this time is appearing somewhat comfortable with no acute respiratory distress. Medications/Allergies Home Medications Medication Instructions Recorded Confirmed Last Taken Type hsopital bed #1 ea 08/28/22 04/02/24 Unknown Rx wheelchair #1 ea 08/28/22 04/02/24 Unknown Rx primidone 50 mg tablet 100 mg PO BEDTIME 12/01/22 04/02/24 03/28/24 History [id number] Nebulizer Set #1 ea 10/13/23 04/02/24 Unknown Rx citalopram 40 mg tablet 40 mg PO DAILY #90 tabs 11/05/23 04/02/24 03/29/24 Rx montelukast 10 mg tablet 10 mg PO DAILY #90 tabs 11/05/23 04/02/24 03/29/24 Rx olanzapine 2.5 mg tablet (Zyprexa) 2.5 mg PO DAILY #90 tabs 11/05/23 04/02/24 03/29/24 Rx pantoprazole 40 mg tablet,delayed 40 mg PO DAILY 01/31/24 04/02/24 03/29/24 History release levalbuterol tartrate 45 2 inh inhalation Q6H PRN shortness 02/09/24 04/02/24 Unknown Rx mcg/actuation aerosol inhaler of breath or wheezing #15 grams nitroglycerin 0.4 mg sublingual See Rx Instructions .Route 03/16/24 04/02/24 Unknown Rx tablet .COMPLEX #25 tabs tezepelumab-ekko 210 mg/1.91 mL 210 mg (1.91 mL) SUBCUT .Q 4 weeks 03/22/24 04/02/24 Unknown Rx (110 mg/mL) subcutaneous pen #1.91 mL injector (Tezspire) prednisone 5 mg tablet 10 mg PO DAILY PRN asthma 03/27/24 04/02/24 Unknown History methylprednisolone 4 mg tablets in See Rx Instructions PO .COMPLEX 03/28/24 04/02/24 Unknown Rx a dose pack (Methylpred DP) #21 ea atorvastatin 20 mg tablet 20 mg PO DAILY 03/29/24 04/02/24 03/29/24 History gabapentin 300 mg capsule 300 mg PO Q8H 03/29/24 04/02/24 03/29/24 History isosorbide mononitrate 30 mg 60 mg (2 x 30 mg) PO DAILY #60 tabs 03/29/24 04/02/24 03/29/24 Rx tablet,extended release 24 hr metoprolol tartrate 25 mg tablet 12.5 mg (1/2 x 25 mg) PO Q12H #30 03/29/24 04/02/24 03/29/24 Rx tabs azithromycin 500 mg tablet 500 mg PO DAILY 04/02/24 04/02/24 Unknown History benralizumab 30 mg/mL subcutaneous 30 mg SUBCUT .Q 8WKS 04/02/24 04/02/24 Unknown History auto-injector (Fasenra Pen) budesonide 160 mcg-glycopyr 9 2 inh inhalation BID 04/02/24 04/02/24 Unknown History mcg-formot 4.8 mcg/actuation HFA inhaler (Breztri Aerosphere) guaifenesin 600 mg tablet, 600 mg PO Q12H PRN Congestion 04/02/24 04/02/24 Unknown History extended release 12 hr ipratropium 0.5 mg-albuterol 3 mg 3 ml inhalation Q6H PRN Shortness 04/02/24 04/02/24 Unknown History (2.5 mg base)/3 mL nebulization Of Breath Or Wheezing soln methylprednisolone 4 mg tablets in mg 04/02/24 Unknown History a dose pack Allergies Allergy/AdvReac Type Severity Reaction Status Date / Time No Known Allergies Allergy Verified 02/19/24 08:21 PFSH Acute PFSH: Medical History CHF exacerbation Chronic hypoxemic respiratory failure Acute on chronic respiratory failure with hypercapnia Asthma with exacerbation Sleep walking Parasomnia Eosinophilic asthma Degenerative lumbar disc History of compression fracture of spine Left leg DVT 07/2022 Cognitive impairment GERD (gastroesophageal reflux disease) Asthma-COPD overlap syndrome Tremor Chronic neck pain Pulmonary emphysema with fibrosis of lung Surgical History History of cataract extraction bilateral History of tonsillectomy Hx of appendectomy Family History Other Dementia Stroke Denies family history of Diabetes CAD (coronary artery disease) Clotting disorder Hyperlipidemia Psychiatric illness Chronic kidney disease (CKD) Suicide Anesthesia complication Bleeding disorder Family history of premature coronary artery disease Lung disease Cancer Hypertension Social History Smoking and tobacco/nicotine status: former use of tobacco/nicotine Quit status (tobacco/nicotine): has quit using Year quit tobacco: 2017 Former quit date comment: 1pack per month x 2 years Second hand smoke exposure: No Alcohol intake: never Substance/Drug Use: never Vitals/I&O/Wt Last Vital Signs Temp 98.1 F 04/01/24 20:59 Pulse 69 04/01/24 21:25 Resp 20 H 04/01/24 21:13 BP 123/90 04/01/24 20:59 Pulse Ox 97 04/01/24 21:25 O2 Del Method Nasal Cannula 04/01/24 21:25 O2 Flow Rate 4 04/01/24 21:25 Weight last 48 hrs Weight 123.831 kg Physical Exam Narrative: General: Comfortable appearing male, resting in bed, nasal cannula in place, baseline 4 L. HEENT: Head atraumatic, normocephalic to visual inspection, CV: Regular rate and rhythm, no murmurs appreciated grossly however patient does have muffled heart sounds secondary to obese body habitus. Pulm: Bilateral wheezes appreciated, decreased air entry bilaterally. GI: Abdomen soft, nontender, bowel sounds present all quadrants. Extremities: Capillary<2 seconds, all extremities otherwise normal, no edema noted. Data 04/02/24 04:48 04/02/24 04:48 A&P Assessment and plan (1) Acute on chronic respiratory failure with hypercapnia: Patient with acute on chronic hypoxic and hypercapnic respiratory failure BiPAP as tolerated, wean off as tolerated Clear liquid diet initially Will repeat ABG if clinically indicated, initial gas obtained shows 7.38/63.5/131. This is not far off from his baseline. pH is compensated. Solu-Medrol 60 IV twice daily Doxycycline 100 twice daily Check sputum Gram stain culture Check D-dimer. May go ahead and do a CTA if D-dimer elevated. DuoNeb every 6 hours scheduled Patient has had multiple hospitalizations recently secondary to his advanced COPD. I would recommend to send patient home on a prolonged prednisone taper at the conclusion of this hospitalization. He will need referral to outpatient pulmonology at discharge. Patient has been ordered a monoclonal antibody by pulmonology. (2) Asthma exacerbation in COPD: see-Sectionon acute on chronic respiratory failure with hypercapnia Plan Other medical problems as follows: #Diastolic heart failure #Sleepwalking #GERD #Pulmonary emphysema with fibrosis of lung #Tremors ? Continue on primidone, metoprolol, olanzapine, Metroprolol tartrate, gabapentin, Imdur, atorvastatin, citalopram. ? Placed on sliding scale insulin low-dose intensity. ? Check hemoglobin A1c. Full code Lovenox for DVT prophylaxis Attestations Medical Necessity Statement*: Greater than 2 midnight stay for management of COPD exacerbation Diagnoses Acute on chronic respiratory failure with hypercapnia J96.22 Asthma exacerbation in COPD J44.1; J45.901
[2024-04-01] MEDS: pantoprazole 40 mg SDV IVP (23:18)
[2024-04-01] MEDS: doxycycline 100 mg Tablet PO (23:18)
[2024-04-01 23:24] LABS: Procalcitonin 0.03 ng/mL (0-0.5)
[2024-04-01] MEDS: heparin 5,000 unit/mL INJ 1 mL 5000 UNIT SUBCUT (23:27)
[2024-04-02] VITALS (13 sets, daily range): BP systolic 125–151; BP diastolic 68–78; PULSE 59–75; RESP 16–19; TEMP 36.6–36.8; O2SAT 91–98
[2024-04-02 05:54] LABS: Hematocrit 39.7 % (37-53); Lymphocytes # 0.6 10^3/uL (0.8-4.8); Lymphocytes % 6.1 %; Mean Corpuscular Hemoglobin 27.4 pg (27-33); Mean Corpuscular Volume 91.3 fl (82-101); Monocytes # 0.2 10^3/uL (0.2-0.9); Monocytes % 2.1 %; Neutrophils # 9.39 10^3/uL (1.8-7.7); Neutrophils % 91.3 %; Nucleated Red Blood Cells % 0 %; Platelet Count 188 10^3/cmm (157-399); Red Blood Count 4.35 10^6/uL (3.85-5.65); White Blood Count 10.29 10^3/uL (3.29-11.43)
[2024-04-02] MEDS: ipratropium-albuterol 3 mL Neb INHALATION ×5 (06:05→20:46)
[2024-04-02 06:27] LABS: Anion Gap 10.2 (5-19); Blood Urea Nitrogen 30 mg/dL (8-23); Calcium 8.6 mg/dL (8.5-10.5); Carbon Dioxide 36 mmol/L (22-29); Chloride 99 mmol/L (98-107); Creatinine Clr Calc Pharmacy 119.1141; Glucose 205 mg/dL (65-115); Magnesium 2.2 mg/dL (1.7-2.3); Osmolality Calculated 304 mOsm/kg (285-295); Potassium 4.2 mmol/L (3.5-5.1); Sodium 141 mmol/L (136-145)
[2024-04-02] MEDS: montelukast sodium 10 mg Tablet PO (08:21)
[2024-04-02] MEDS: OLANZapine 5 mg TABLET 2.5 MG PO (08:21)
[2024-04-02] MEDS: doxycycline 100 mg Tablet PO ×2 (08:21→17:39)
[2024-04-02] MEDS: metoprolol tartrate 25 mg Tablet 12.5 MG PO ×2 (08:22→20:44)
[2024-04-02] MEDS: isosorbide mononitrate ER 30 mg Tablet 60 MG PO (08:23)
[2024-04-02] MEDS: methylPREDNISolone sod succ 40 mg/mL INJ 60 MG IVP ×2 (08:23→20:44)
[2024-04-02] MEDS: budesonide 0.5 mg/2 mL Neb INHALATION ×2 (09:02→20:46)
[2024-04-02] MEDS: heparin 5,000 unit/mL INJ 1 mL 5000 UNIT SUBCUT ×2 (11:19→22:40)
--- NOTE | 2024-04-02 11:29 | P.PN_ITS ---
Subjective 2 Subjective: Patient is awake and alert No active wheezing Doing well on 4 L nasal cannula Requested overnight pulse ox study which needs to be repeated because on previous study we were not able to capture hypoxia overnight Vitals/I&O/Wt Last Vital Signs Temp 97.8 F 04/02/24 07:57 Pulse 68 04/02/24 09:03 Resp 16 04/02/24 09:03 BP 125/78 04/02/24 07:57 Pulse Ox 96 04/02/24 09:03 O2 Del Method Nasal Cannula 04/02/24 09:03 O2 Flow Rate 4 04/02/24 09:03 04/01/24 04/02/24 04/02/24 22:59 06:59 14:59 Output Total 525 / 525 500 / 500 Balance -525 / -525 -500 / -500 Weight last 48 hrs Weight 126.099 kg Weight 123.876 kg Weight 123.831 kg Physical Exam 2 Narrative: Awake and alert No active wheezing Currently doing well on 4 L Ultrasound of confusion No active shortness of breath No active chest pain Pleasant calm Morbid obese Data 04/02/24 04:48 04/02/24 04:48 A&P Assessment and plan (1) GERD (gastroesophageal reflux disease): Qualifiers: Esophagitis presence: without esophagitis Qualified Code(s): K21.9 - Gastro-esophageal reflux disease without esophagitis (2) Chronic neck pain: (3) History of compression fracture of spine: (4) Severe persistent asthma dependent on systemic steroids: (5) Eosinophilic asthma: (6) Acute exacerbation of chronic obstructive airways disease: (7) Excessive daytime sleepiness: Plan I will try to get overnight pulse ox study to see if this time we can get BiPAP arranged for the patient otherwise he will come back within few days Will give him steroid taper at the time of discharge as well He is already on very aggressive medication for asthma/COPD overlap with eosinophilia No active wheezing at the time of my evaluation Continue on 4 L which is baseline No acute chest pain Patient doing well able to answer all my questions no sign of encephalopathy pH is compensated Attestations 2 Medical Necessity Statement*: Continue medical management Diagnoses Gastroesophageal reflux disease without esophagitis K21.9 Esophagitis presence: without esophagitis Chronic neck pain M54.2; G89.29 History of compression fracture of spine Z87.81 Severe persistent asthma dependent on systemic steroids J45.50; Z79.52 Eosinophilic asthma J82.83 Acute exacerbation of chronic obstructive airways disease J44.1 Excessive daytime sleepiness G47.19
[2024-04-02] MEDS: pantoprazole 40 mg SDV IVP (22:41)
[2024-04-03] VITALS (13 sets, daily range): BP systolic 133–145; BP diastolic 71–79; PULSE 50–73; RESP 15–21; TEMP 36.4–36.7; O2SAT 93–98
[2024-04-03] MEDS: ipratropium-albuterol 3 mL Neb INHALATION ×5 (02:19→19:53)
[2024-04-03 04:44] LABS: ABG PCO2 54.2 mmHg (35-45); ABG PH Result 7.42 (7.35-7.45); Arterial Blood Gas Hematocrit 38.4 % (42-52); Base Excess ABG 9.3 mmol/L (-2.0-2.0); Blood Gas Allen Test Pos; Blood Gas Sample Site Radial, right; Blood Gas Sample Type Arterial; HCO3 ABG 35.5 mmol/L (22-26); PO2 ABG 78.6 mmHg (80.0-100.0)
[2024-04-03 04:45] LABS: Blood Gas Operator Identificat JB; Oxygen Device NC
[2024-04-03 05:40] LABS: Hematocrit 37.8 % (37-53); Lymphocytes # 0.8 10^3/uL (0.8-4.8); Lymphocytes % 6.3 %; Mean Corpuscular HGB Conc 30.7 g/dL (30-55); Mean Corpuscular Hemoglobin 27.4 pg (27-33); Mean Corpuscular Volume 89.2 fl (82-101); Mean Platelet Volume 10.8 fL (7.4-10.4); Monocytes # 0.9 10^3/uL (0.2-0.9); Neutrophils # 10.56 10^3/uL (1.8-7.7); Neutrophils % 85.6 %; Nucleated Red Blood Cells % 0 %; Platelet Count 203 10^3/cmm (157-399); Red Blood Count 4.24 10^6/uL (3.85-5.65); Red Cell Distribution Width 15.1 % (12.1-15.1); White Blood Count 12.34 10^3/uL (3.29-11.43)
[2024-04-03 06:00] LABS: Anion Gap 12.7 (5-19); Blood Urea Nitrogen 22 mg/dL (8-23); Calcium 8.7 mg/dL (8.5-10.5); Carbon Dioxide 33 mmol/L (22-29); Chloride 100 mmol/L (98-107); Creatinine Clr Calc Pharmacy 119.1609; Glucose 131 mg/dL (65-115); Osmolality Calculated 299 mOsm/kg (285-295); Potassium 3.7 mmol/L (3.5-5.1); Sodium 142 mmol/L (136-145)
[2024-04-03] MEDS: budesonide 0.5 mg/2 mL Neb INHALATION ×2 (08:02→19:54)
[2024-04-03] MEDS: methylPREDNISolone sod succ 40 mg/mL INJ 60 MG IVP ×2 (09:16→20:31)
[2024-04-03] MEDS: doxycycline 100 mg Tablet PO ×2 (09:17→17:13)
[2024-04-03] MEDS: OLANZapine 5 mg TABLET 2.5 MG PO (09:17)
[2024-04-03] MEDS: metoprolol tartrate 25 mg Tablet 12.5 MG PO ×2 (09:17→20:30)
[2024-04-03] MEDS: montelukast sodium 10 mg Tablet PO (09:17)
[2024-04-03] MEDS: isosorbide mononitrate ER 30 mg Tablet 60 MG PO (09:17)
[2024-04-03] MEDS: heparin 5,000 unit/mL INJ 1 mL 5000 UNIT SUBCUT ×2 (10:20→22:30)
--- NOTE | 2024-04-03 10:22 | P.PN_ITS ---
Subjective 2 Subjective: Patient is endorsing feeling well No overnight events Currently on 4 L nasal cannula Overnight pulse ox study showed less than 10 seconds of hypoxia Vitals/I&O/Wt Last Vital Signs Temp 97.8 F 04/03/24 08:00 Pulse 71 04/03/24 08:09 Resp 18 04/03/24 08:09 BP 143/79 04/03/24 08:00 Pulse Ox 98 04/03/24 08:09 O2 Del Method Nasal Cannula 04/03/24 08:09 O2 Flow Rate 4 04/03/24 08:09 04/02/24 04/03/24 04/03/24 22:59 06:59 14:59 Intake Total 120 / 720 120 / 840 120 / 120 Output Total 450 / 1400 600 / 2000 800 / 800 Balance -330 / -680 -480 / -1160 -680 / -680 Weight last 48 hrs Weight 126.189 kg Weight 126.099 kg Weight 123.876 kg Weight 123.831 kg Physical Exam 2 Narrative: Patient awake alert Euvolemic Currently on 4 L No active wheezing Pleasant cooperative Able to answer simple questions Cognitive impairment S1, S2 Abdomen soft Data 04/03/24 04:50 04/03/24 04:50 Micro: Microbiology 04/02/24 00:01 Gram Stain - Final Sputum - Expectorated Sputum Sputum Culture - Preliminary A&P Assessment and plan (1) Asthma exacerbation in COPD: (2) Eosinophilic asthma: (3) Severe persistent asthma dependent on systemic steroids: (4) Acute on chronic hypoxic respiratory failure: (5) Pulmonary fibrosis: (6) GERD (gastroesophageal reflux disease): Qualifiers: Esophagitis presence: without esophagitis Qualified Code(s): K21.9 - Gastro-esophageal reflux disease without esophagitis Plan lacyEdwigegavin Nunn is a 64 year old male With past medical history of 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 Acute COPD exacerbation with underlying emphysematous/pulmonary fibrosis changes of lung Compensated Acute on chronic hypoxia: Resolved currently patient is doing well at baseline oxygen requirement of 4 L No active wheezing Patient will need strong steroid taper at the time of discharge he is not showing any sign of addisonian crisis Requested overnight pulse ox study which did not show significant hypoxia however I will like to touch base with case management on Thursday to see if he would qualify for BiPAP to prevent readmissions and respiratory distress for the patient Patient has cognitive impairment, lives with his brother, it is very important for him to get BiPAP approved in order to prevent readmissions. Full code Cardiac diet Disposition: After BiPAP approval: Home Attestations 2 Medical Necessity Statement*: Discharge likely Thursday Diagnoses Asthma exacerbation in COPD J44.1; J45.901 Eosinophilic asthma J82.83 Severe persistent asthma dependent on systemic steroids J45.50; Z79.52 Acute on chronic hypoxic respiratory failure J96.21 Pulmonary fibrosis J84.10 Gastroesophageal reflux disease without esophagitis K21.9 Esophagitis presence: without esophagitis
[2024-04-03] MEDS: pantoprazole 40 mg SDV IVP (22:30)
[2024-04-04] VITALS (13 sets, daily range): BP systolic 117–136; BP diastolic 67–78; PULSE 54–85; RESP 15–22; TEMP 36.4–36.8; O2SAT 92–98
[2024-04-04 04:03] LABS: Basophils % 0.1 %; Lymphocytes # 0.7 10^3/uL (0.8-4.8); Lymphocytes % 5.8 %; Mean Corpuscular HGB Conc 29.5 g/dL (30-55); Mean Corpuscular Hemoglobin 27.5 pg (27-33); Mean Corpuscular Volume 93.3 fl (82-101); Mean Platelet Volume 11.8 fL (7.4-10.4); Monocytes # 0.7 10^3/uL (0.2-0.9); Monocytes % 5.8 %; Neutrophils # 10.14 10^3/uL (1.8-7.7); Neutrophils % 86.4 %; Nucleated Red Blood Cells % 0 %; Platelet Count 232 10^3/cmm (157-399); Red Blood Count 4.18 10^6/uL (3.85-5.65); Red Cell Distribution Width 15.7 % (12.1-15.1); White Blood Count 11.73 10^3/uL (3.29-11.43)
[2024-04-04] MEDS: ipratropium-albuterol 3 mL Neb INHALATION ×4 (08:23→20:13)
[2024-04-04] MEDS: budesonide 0.5 mg/2 mL Neb INHALATION ×2 (08:23→20:13)
--- NOTE | 2024-04-04 09:14 | PC.CHAP ---
Pastoral Care Encounter/Spiritual Assessment Type of Contact [] Declined air press operator visit [] Patient/Family/Request visit [] Outpatient visit [] Follow-up visit [] Physician referral [] Code/Alert [x] Routine visit [] Staff referral [] Actively dying [] Patient sleeping [] Family support [] [] Out of room [] Palliative care [] [] Receiving care in room [] Pre-surgical visit [] Trauma [] Long length of stay [] ICU visit [] Other: Relational/Emotional Strength [] Patient feels connected with others/family/visitors/staff [] Distress [] Loneliness/isolation [] Abandonment Spirituality of Patient [x] Person of [place] [] Attends [facility] of their [place] [x] Believes in Prayer [] Reads Bible or Advent materials [] There are Spiritual issues to be addressed Conditioning Machine Operator 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 [x] Prayer [x] Active listening [] Non-anxious presence [] Spiritual/emotional support [] Crisis/trauma care [] Spiritual counseling [] Bereavement support [] Provided bereavement packet [x] Provided Bible/devotional materials [] Provided toy/stuffed animal, coloring book to patient or family member [] Provided Communion [] Anointing/[place] [] Salvation [x] Completed spiritual assessment [] Other: Impact on Illness or Injury [] Angry [] Fearful [] Anxious [] Often cries [] Exhaustion [] Unable to work [] Unable to attend cheondoism [] Unable to walk/stand [] Unable to read [] Unable to drive [] Unable to eat/drink [] Unable to sleep [] Unable to be with family [] Patient intubated [] Other: Summary Time spent with patient
[2024-04-04] MEDS: metoprolol tartrate 25 mg Tablet 12.5 MG PO ×2 (10:40→19:56)
[2024-04-04] MEDS: OLANZapine 5 mg TABLET 2.5 MG PO (10:40)
[2024-04-04] MEDS: isosorbide mononitrate ER 30 mg Tablet 60 MG PO (10:40)
[2024-04-04] MEDS: methylPREDNISolone sod succ 40 mg/mL INJ 60 MG IVP (10:41)
[2024-04-04] MEDS: doxycycline 100 mg Tablet PO ×2 (10:41→17:43)
[2024-04-04] MEDS: montelukast sodium 10 mg Tablet PO (10:41)
[2024-04-04] MEDS: heparin 5,000 unit/mL INJ 1 mL 5000 UNIT SUBCUT ×2 (11:17→23:07)
--- NOTE | 2024-04-04 14:34 | USCV_ITS ---
Elvin Nunn Age: 64 Gender: M : 1960 Exam Date: 04/04/2024 18:08 Ordering Phys: Billie Stephen MD Technologist: PATTI Exam Location: [facility] – [place] Indication: worsening dyspnea, longstanding COPD. No history of cardiac intervention per patient. BP: 136 / 70 HR: 55 Rhythm: Sinus Technical Quality: Adequate MEASUREMENTS (Male / Female) Normal Values 2D ECHO LV Diastolic Diameter PLAX 4.5 cm 4.2 - 5.9 / 3.9 - 5.3 cm IVS Diastolic Thickness 1.6 cm 0.6 - 1.0 / 0.6 - 0.9 cm IVS Systolic Thickness 1.9 cm LVPW Diastolic Thickness 1.5 cm 0.6 - 1.0 / 0.6 - 0.9 cm LVPW Systolic Thickness 1.5 cm LVOT Diameter 2.2 cm LV Ejection Fraction 2D Teich 69.0 % LV Ejection Fraction MOD 2C 76.1 % LV Ejection Fraction 2C AL 75.7 % LA Diameter 3.5 cm LA Sys Volume AL 71.6 cm cubed LA Sys Volume Index AL 21.4 cm cubed/m squared Aorta at Sinotubular Diameter 3.0 cm IVC Diameter 2.1 cm M-MODE LA Ao Ratio MM 1.2 AV Cusp Separation MM 2.4 cm DOPPLER AV Peak Velocity 162.0 cm/s LVOT Peak Velocity 158.0 cm/s AV Area Cont Eq vti 3.8 cm squared AV Area Cont Eq pk 3.8 cm squared MV Peak Velocity 90.0 cm/s MV Area PHT 3.4 cm squared Mitral E to A Ratio 0.9 TV Peak Velocity 255.5 cm/s TR Peak Velocity 259.0 cm/s TR Peak Gradient 26.8 mmHg TV Peak E Velocity 41.0 cm/s Right Atrial Pressure 3.0 mmHg Pulmonary Artery Systolic Pressu 29.8 mmHg PV Peak Velocity 95.0 cm/s FINDINGS Left Ventricle Normal LV size and ejection fraction of 76%.mild left ventricular hypertrophy. Grade I/IV diastolic dysfunction (abnormal relaxation filling pattern), normal to mildly elevated filling pressures. Right Ventricle The right ventricle is normal in size and function. Right Atrium The right atrium is normal in size. Left Atrium The left atrium is normal in size. Mitral Valve Thickened mitral valve. Aortic Valve Thickened aortic valve. Tricuspid Valve Mild tricuspid valve regurgitation. Pulmonic Valve Mild pulmonary valve regurgitation. Pericardium Normal pericardium without effusion. Aorta Normal ascending aorta dimension. IVC Normal inferior vena cava. CONCLUSIONS Normal LV size and ejection fraction of 76%.mild left ventricular hypertrophy. Grade I/IV diastolic dysfunction (abnormal relaxation filling pattern), normal to mildly elevated filling pressures. Minimally thickened aortic and mitral valves. Mild tricuspid valve regurgitation. Estimated pulmonary artery peak systolic pressure 30 mmHg Mild pulmonary valve regurgitation. There are no intracardiac masses. There is no pericardial effusion. Comparison with the previous study is difficult because of the difference in the technical quality. Dr Bernie Park MD [facility] (Electronically Signed) Final Date: 05 April 2024 12:42 S
--- NOTE | 2024-04-04 14:37 | CTR_ITS ---
PROCEDURE INFORMATION: Exam: CTA Chest With Contrast Exam date and time: 04/04/2024 4:26 PM Age: 64 years old Clinical indication: Worsening dyspnea, long standing copd/ asthma on chronic steroids, TECHNIQUE: Imaging protocol: Computed tomographic angiography of the chest with contrast. Exam focused on the arteries. 3D rendering (Not supervised by radiologist): MIP and/or 3D reconstructed images were created by the technologist. Radiation optimization: All CT scans at this facility use at least one of these dose optimization techniques: automated exposure control; mA and/or kV adjustment per patient size (includes targeted exams where dose is matched to clinical indication); or iterative reconstruction. Contrast material: OMNI 350; Contrast volume: 86 ml; Contrast route: INTRAVENOUS (IV); COMPARISON: CT angio chest PE protcl [id number] 01/19/2024 9:59 PM RADIATION DOSE METRICS: Total DLP (mGy-cm): 597 FINDINGS: Pulmonary arteries: Normal. No pulmonary emboli. Aorta: Unremarkable. No aortic aneurysm. No aortic dissection. Lungs: Bilateral scarring and or atelectasis most prominent in the right lower lobe. Endobronchial secretions in the region of atelectasis in the right lower lobe also appears similar to the prior study. Peribronchial thickening most prominent in the right lower lobe appears similar to the prior CT scan. Pleural spaces: Small right pleural effusion. Heart: Unremarkable. No cardiomegaly. No pericardial effusion. Coronary arteries: There are calcifications in the left anterior descending coronary artery. Lymph nodes: Unremarkable. No enlarged lymph nodes. Bones/joints: There is fusion across the right 1st and 2nd ribs, unchanged from the prior study. Old/healed fractures through the anterolateral aspect of the right 9th rib. There are degenerative changes in the visualized spine. Soft tissues: Unremarkable. CT/CT angio chest PE protcl [id number] IMPRESSION: 1. There is scarring and or atelectasis in the right lower lobe associated with peribronchial thickening and endobronchial secretions similar to the prior CT scan. 2. Small right pleural effusion. 3. No evidence for pulmonary embolus.
--- NOTE | 2024-04-04 15:09 | PC.SOCIAL ---
IMM updated IMM initialed and dated, copy given to patient and placed in chart.
--- NOTE | 2024-04-04 15:24 | P.PN_ITS ---
Subjective 2 Subjective: Patient continues to report dyspnea with less than usual activity. Noted to have some wheezing bilaterally scattered. States that he feels about the same since admission. Medications: Reviewed: Yes Vitals/I&O/Wt Last Vital Signs Temp 97.6 F 04/04/24 12:00 Pulse 70 04/04/24 12:56 Resp 20 H 04/04/24 12:56 BP 130/78 04/04/24 12:00 Pulse Ox 95 04/04/24 12:56 O2 Del Method Nasal Cannula 04/04/24 12:56 O2 Flow Rate 4 04/04/24 12:56 04/04/24 04/04/24 04/04/24 06:59 14:59 22:59 Intake Total 900 / 900 Output Total 1025 / 2325 1350 / 1350 Balance -1025 / -1215 -450 / -450 Weight last 48 hrs Weight 126.008 kg Weight 126.189 kg Physical Exam 2 Narrative: General: No acute distress, AO x3 HEENT: PERRLA, pupils bilaterally equal and reactive, pallors not present Chest: Normal vesicular breath sounds, no added sounds, equal good air entry bilaterally CVS: S1-S2 regular, no murmurs, no tachycardia, no gallops, no rubs Abdomen: Soft, nontender, no organomegaly, bowel sounds present Neuro: No focal deficits, no facial deformity, AO x3, power 5/5 in all limbs Data 04/04/24 02:23 04/03/24 04:50 Micro: Microbiology 04/02/24 00:01 Gram Stain - Final Sputum - Expectorated Sputum Sputum Culture - Final A&P Assessment and plan (1) Asthma exacerbation in COPD: (2) Eosinophilic asthma: (3) Severe persistent asthma dependent on systemic steroids: (4) Acute on chronic hypoxic respiratory failure: (5) Pulmonary fibrosis: (6) GERD (gastroesophageal reflux disease): Qualifiers: Esophagitis presence: without esophagitis Qualified Code(s): K21.9 - Gastro-esophageal reflux disease without esophagitis Plan lacyEdwigegavin Nunn is a 64 year old male With past medical history of 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 Acute COPD exacerbation with underlying emphysematous/pulmonary fibrosis changes of lung Compensated Acute on chronic hypoxia: Resolved currently patient is doing well at baseline oxygen requirement of 4 L No active wheezing Patient will need strong steroid taper at the time of discharge he is not showing any sign of addisonian crisis Requested overnight pulse ox study which did not show significant hypoxia however I will like to touch base with case management on Thursday to see if he would qualify for BiPAP to prevent readmissions and respiratory distress for the patient Patient has cognitive impairment, lives with his brother, it is very important for him to get BiPAP approved in order to prevent readmissions. Full code Cardiac diet Disposition: After BiPAP approval: Home Plan for today. April 04, 2024. Patient does not meet criteria for home BiPAP use per insurance criteria. We will not be able to arrange a BiPAP for him to go home with. Discussed with patient that he will likely need a sleep study with titration as an outpatient, however this is complicated by the fact that we will no longer have pulmonology services at our hospital. Patient has been on chronic prednisone 10 mg/day for the last 2 months. His sister manages all of his medications and provides the history. Last CT of the chest from December 2023 was negative for PE which did show bilateral nonspecific bronchial wall thickening. Will repeat a CT of the chest to assess for possible pneumocystis pneumonia given patient has been on chronic steroids and certainly has risk factors for the same. Check serum beta glucan level LDH level as screening tools. Check pneumocystis PCR. Additionally patient sister reports that he has been having increasing lower extremity edema for which she has been on Lasix at home. Together with worsening dyspnea on exertion, concerned about alternate explanation such as pulmonary hypertension for his persisting symptoms. Will obtain echocardiogram today. Taper IV Solu-Medrol to p.o. prednisone 40 mg twice daily today and assess for response. Attestations 2 Medical Necessity Statement*: Transition IV to oral steroids, evaluation for pneumocystis pneumonia with CT chest, echocardiogram to assess for pulmonary hypertension. Coding Level of Care Code Acute Code for [facility] Fwd Diagnoses Asthma exacerbation in COPD J44.1; J45.901 Eosinophilic asthma J82.83 Severe persistent asthma dependent on systemic steroids J45.50; Z79.52 Acute on chronic hypoxic respiratory failure J96.21 Pulmonary fibrosis J84.10 Gastroesophageal reflux disease without esophagitis K21.9 Esophagitis presence: without esophagitis
[2024-04-04] MEDS: iohexol 350 mg/mL 500 mL Btl (per mL) IV (16:34)
[2024-04-04] MEDS: predniSONE 20 mg Tablet 40 MG PO (17:43)
[2024-04-04 22:37] LABS: Lactate Dehydrogenase 171 U/L (135-225)
[2024-04-04] MEDS: pantoprazole 40 mg SDV IVP (23:07)
[2024-04-05] VITALS (12 sets, daily range): BP systolic 124–145; BP diastolic 76–86; PULSE 51–70; RESP 15–20; TEMP 36.4–36.8; O2SAT 93–97; BMI 41.9
[2024-04-05 05:42] LABS: Basophils % 0.1 %; Hematocrit 39.9 % (37-53); Lymphocytes % 7.3 %; Mean Corpuscular HGB Conc 30.8 g/dL (30-55); Mean Corpuscular Hemoglobin 27.8 pg (27-33); Mean Corpuscular Volume 90.3 fl (82-101); Mean Platelet Volume 10.3 fL (7.4-10.4); Monocytes # 1.2 10^3/uL (0.2-0.9); Monocytes % 9.2 %; Neutrophils # 10.86 10^3/uL (1.8-7.7); Neutrophils % 81.7 %; Nucleated Red Blood Cells % 0 %; Platelet Count 179 10^3/cmm (157-399); Red Blood Count 4.42 10^6/uL (3.85-5.65); Red Cell Distribution Width 15.7 % (12.1-15.1); White Blood Count 13.29 10^3/uL (3.29-11.43)
[2024-04-05 06:05] LABS: Alanine Aminotransferase 22 U/L (0-41); Albumin Level 3.4 g/dL (3.5-5.2); Alkaline Phosphatase 84 U/L (40-130); Anion Gap 13.5 (5-19); Aspartate Amino Transferase 12 U/L (0-40); Blood Urea Nitrogen 25 mg/dL (8-23); Calcium 8.7 mg/dL (8.5-10.5); Carbon Dioxide 31 mmol/L (22-29); Chloride 102 mmol/L (98-107); Creatinine Clr Calc Pharmacy 118.5943; Globulin 2.7 g/dL (1.3-4.6); Glucose 123 mg/dL (65-115); Osmolality Calculated 300 mOsm/kg (285-295); Potassium 4.5 mmol/L (3.5-5.1); Sodium 142 mmol/L (136-145); Total Bilirubin 0.3 mg/dL (0.15-1.2); Total Protein 6.1 g/dL (6.6-8.7)
[2024-04-05] MEDS: ipratropium-albuterol 3 mL Neb INHALATION ×3 (08:25→15:28)
[2024-04-05] MEDS: budesonide 0.5 mg/2 mL Neb INHALATION (08:25)
--- NOTE | 2024-04-05 09:21 | PC.CHAP ---
Pastoral Care Encounter/Spiritual Assessment Type of Contact [] Declined metal mold dresser visit [] Patient/Family/Request visit [] Outpatient visit [] Follow-up visit [] Physician referral [] Code/Alert [x] Routine visit [] Staff referral [] Actively dying [] Patient sleeping [] Family support [] [] Out of room [] Palliative care [] [] Receiving care in room [] Pre-surgical visit [] Trauma [] Long length of stay [] ICU visit [] Other: Relational/Emotional Strength [x] Patient feels connected with others/family/visitors/staff [] Distress [] Loneliness/isolation [] Abandonment Spirituality of Patient [x] Person of Tova [] Attends Hinduism of their Tova [x] Believes in Prayer [] Reads Bible or Sabianist materials [] There are Spiritual issues to be addressed Residential Monitor 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 [x] Prayer [x] Active listening [] Non-anxious presence [x] Spiritual/emotional support [] Crisis/trauma care [] Spiritual counseling [] Bereavement support [] Provided bereavement packet [] Provided Bible/devotional materials [] Provided toy/stuffed animal, coloring book to patient or family member [] Provided Communion [] Anointing/[place] [] Salvation [x] Completed spiritual assessment [] Other: Impact on Illness or Injury [] Angry [] Fearful [] Anxious [] Often cries [] Exhaustion [] Unable to work [] Unable to attend oriental orthodox [] Unable to walk/stand [] Unable to read [] Unable to drive [] Unable to eat/drink [] Unable to sleep [] Unable to be with family [] Patient intubated [] Other: Summary Time spent with patient 5 min
[2024-04-05] MEDS: doxycycline 100 mg Tablet PO (09:23)
[2024-04-05] MEDS: montelukast sodium 10 mg Tablet PO (09:23)
[2024-04-05] MEDS: predniSONE 20 mg Tablet 40 MG PO (09:23)
[2024-04-05] MEDS: metoprolol tartrate 25 mg Tablet 12.5 MG PO (09:23)
[2024-04-05] MEDS: isosorbide mononitrate ER 30 mg Tablet 60 MG PO (09:23)
[2024-04-05] MEDS: OLANZapine 5 mg TABLET 2.5 MG PO (09:24)
--- NOTE | 2024-04-05 17:47 | PM.PN ---
Subjective Subjective: Patient feels subjectively worse after transitioning from IV to oral steroids yesterday. Will increase dose of p.o. prednisone today. Patient's sister had reported to us yesterday that he has a CPAP machine at home. In confirming with Ángel, this is confirmed to be a noninvasive vent and not to stop CPAP. Medications: Reviewed: Yes Vitals/I&O/Wt Last Vital Signs Temp 97.6 F 04/05/24 15:09 Pulse 63 04/05/24 15:28 Resp 16 04/05/24 15:28 BP 124/76 04/05/24 15:09 Pulse Ox 94 04/05/24 15:28 O2 Del Method Nasal Cannula 04/05/24 15:28 O2 Flow Rate 4 04/05/24 15:28 04/05/24 04/05/24 04/05/24 06:59 14:59 22:59 Intake Total 480 / 2100 1076 / 1076 Output Total 900 / 2250 Balance -420 / -150 1076 / 1076 Weight last 48 hrs Weight 125.101 kg Weight 126.008 kg Physical Exam Narrative: General: No acute distress, AO x3 HEENT: PERRLA, pupils bilaterally equal and reactive, pallors not present Chest: Bilateral scattered wheezing to auscultation. CVS: S1-S2 regular, no murmurs, no tachycardia, no gallops, no rubs Abdomen: Soft, nontender, no organomegaly, bowel sounds present Neuro: No focal deficits, no facial deformity, AO x3, power 5/5 in all limbs Data 04/05/24 05:05 04/05/24 05:05 A&P Assessment and plan (1) Asthma exacerbation in COPD: (2) Eosinophilic asthma: (3) Severe persistent asthma dependent on systemic steroids: (4) Acute on chronic hypoxic respiratory failure: (5) Pulmonary fibrosis: (6) GERD (gastroesophageal reflux disease): Qualifiers: Esophagitis presence: without esophagitis Qualified Code(s): K21.9 - Gastro-esophageal reflux disease without esophagitis Plan lacyEdwigegavin Nunn is a 64 year old male With past medical history of 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 Acute COPD exacerbation with underlying emphysematous/pulmonary fibrosis changes of lung Compensated Acute on chronic hypoxia: Resolved currently patient is doing well at baseline oxygen requirement of 4 L No active wheezing Patient will need strong steroid taper at the time of discharge he is not showing any sign of addisonian crisis Requested overnight pulse ox study which did not show significant hypoxia however I will like to touch base with case management on Thursday to see if he would qualify for BiPAP to prevent readmissions and respiratory distress for the patient Patient has cognitive impairment, lives with his brother, it is very important for him to get BiPAP approved in order to prevent readmissions. Full code Cardiac diet Disposition: After BiPAP approval: Home Plan for today. April 04, 2024. Patient does not meet criteria for home BiPAP use per insurance criteria. We will not be able to arrange a BiPAP for him to go home with. Discussed with patient that he will likely need a sleep study with titration as an outpatient, however this is complicated by the fact that we will no longer have pulmonology services at our hospital. Patient has been on chronic prednisone 10 mg/day for the last 2 months. His sister manages all of his medications and provides the history. Last CT of the chest from December 2023 was negative for PE which did show bilateral nonspecific bronchial wall thickening. Will repeat a CT of the chest to assess for possible pneumocystis pneumonia given patient has been on chronic steroids and certainly has risk factors for the same. Check serum beta glucan level LDH level as screening tools. Check pneumocystis PCR. Additionally patient sister reports that he has been having increasing lower extremity edema for which she has been on Lasix at home. Together with worsening dyspnea on exertion, concerned about alternate explanation such as pulmonary hypertension for his persisting symptoms. Will obtain echocardiogram today. Taper IV Solu-Medrol to p.o. prednisone 40 mg twice daily today and assess for response. Plan for today April 05, 2024. Extensively reviewed outpatient pulmonology notes. Patient has a known diagnosis of severe eosinophilic asthma with COPD overlap. He is on injectable Fasenraand tezepelumab - ekko with poor control in symptoms. Subjectively worse after transitioning iv to po steroids. prednisone increased to 80mg BID. Assess for response. 02 at 4lpm. Per review of past pulmonology notes patient has already been on a noninvasive ventilator at least over the past year. Patient's sister had mentioned yesterday that he has a CPAP machine at home, however we confirm with Ángel today that patient in fact has a noninvasive vent at home. Requested Ángel to visit out to patient's home to make them familiar with the machine use. I wonder if this needs some troubleshooting and education since family is not aware that this is a noninvasive vent. In reviewing pulmonology notes, patient has been diagnosed with severe sleep apnea. Though he does not have any hypoxic episodes at night he does have several episodes of apnea and sleepwalking. He has been referred to a sleep specialist as an outpatient but is yet to make that appointment. Additionally patient will need transition to a new baseball winder since Dr. Cabrera is no longer at [facility]. CTA was negative for PE. Current showed chronic changes of bronchitis and atelectasis. Echocardiogram additionally now available showed an LVEF of 76%, grade 1 diastolic dysfunction. Minimally thickened aortic and mitral valves. PASP of 30 mmHg. Will add Lasix in case diastolic heart failure contributing to his current clinical picture. Finding of diastolic heart failure appears to be new compared to December 2022. Since there are no regional wall motion abnormalities, lower concern for ACS. Attestations Medical Necessity Statement*: add lasix , increase steroids, confrimed availability of NIV at home Coding Level of Care Code Acute Code for [facility] Fwd Diagnoses Asthma exacerbation in COPD J44.1; J45.901 Eosinophilic asthma J82.83 Severe persistent asthma dependent on systemic steroids J45.50; Z79.52 Acute on chronic hypoxic respiratory failure J96.21 Pulmonary fibrosis J84.10 Gastroesophageal reflux disease without esophagitis K21.9 Esophagitis presence: without esophagitis
[2024-04-05] MEDS: FUROsemide 10 mg/mL SDV 4mL 40 MG IVP (18:08)
[2024-04-05] MEDS: amoxicillin-clav 875-125 mg Tablet 1 TAB PO (18:08)
[2024-04-05] MEDS: predniSONE 20 mg Tablet 80 MG PO (18:08)
[2024-04-11 16:31] LABS: Fungitell 1-3-B Glucan Assay 67 pg/ml; Interpretation Indeterminate (Negative)
== END 2024-04-05 18:35 | disposition home or self-care (01) | DRG 190 ==
LOC: ER 22:23 → MEDSURG 23:05
PROVIDERS: Internal Medicine; Admitting Provider Internal Medicine; Emergency Provider Emergency Medicine; PCP Nurse Practitioner Family; Visit Provider Student in an Organized Health Care Education/Training Program
DX: J44.1 Chronic obstructive pulmonary disease with (acute) exacerbation (principal); J96.21 Acute and chronic respiratory failure with hypoxia; J96.22 Acute and chronic respiratory failure with hypercapnia; J82.83 Eosinophilic asthma; I50.32 Chronic diastolic (congestive) heart failure; Z68.41 Body mass index [BMI] 40.0-44.9, adult; K21.9 Gastro-esophageal reflux disease without esophagitis; R25.1 Tremor, unspecified; J84.10 Pulmonary fibrosis, unspecified; E66.01 Morbid (severe) obesity due to excess calories; G89.29 Other chronic pain; M54.2 Cervicalgia; G47.19 Other hypersomnia; I27.20 Pulmonary hypertension, unspecified; Z79.52 Long term (current) use of systemic steroids; Z99.81 Dependence on supplemental oxygen; Z86.718 Personal history of other venous thrombosis and embolism; Z87.891 Personal history of nicotine dependence
CPT/HCPCS: 36415; 36600; 71045; 71275; 80048; 80051; 80053; 82330; 82803; 82805; 83615; 83690; 83735; 83880; 84145; 84484; 85025; 87070; 87205; 87449; 93005; 93306; 94640; 94664; 96372; 96374; 99285; J1100; J1644; J1940; J2470; J2919; J7512; J7613; J7626; Q0144; Q9967

== ENCOUNTER 2024-05-28 18:33 | Emergency (ER) | payer MEDICARE, MEDICAID, SELFPAY ==
[2024-05-28] VITALS (48 sets, daily range): BP systolic 51–180; BP diastolic 34–148; PULSE 60–156; RESP 11–25; TEMP 36.7; O2SAT 89–98
--- NOTE | 2024-05-28 19:02 | XRR_ITS ---
PROCEDURE INFORMATION: Exam: XR Chest Exam date and time: 05/28/2024 7:06 PM Age: 64 years old Clinical indication: Shortness of breath; Patient HX: C/O SOB TECHNIQUE: Imaging protocol: Radiologic exam of the chest. Views: 1 view. COMPARISON: CT angio chest PE protcl [id number] 04/04/2024 4:26 PM FINDINGS: Lungs: Unremarkable. No consolidation. Pleural spaces: Unremarkable. No pleural effusion. No pneumothorax. Heart/Mediastinum: Stable mild cardiomegaly. Bones/joints: Unremarkable. XR/XR chest 1V portable [id number] IMPRESSION: No acute findings.
[2024-05-28] MEDS: ondansetron 2 mg/ML SDV 2 mL 4 MG IVP (19:26)
[2024-05-28] MEDS: morphine 4 mg/mL SDV 1 mL IVP (19:28)
[2024-05-28] MEDS: FUROsemide 10 mg/mL SDV 10mL 80 MG IVP (19:30)
[2024-05-28 19:32] LABS: Basophils % 0.1 %; Eosinophils # 0.1 10^3/uL (0.0-0.8); Eosinophils % 1.1 %; Hematocrit 37.7 % (37-53); Lymphocytes # 0.9 10^3/uL (0.8-4.8); Lymphocytes % 12.5 %; Mean Corpuscular Hemoglobin 27.6 pg (27-33); Mean Corpuscular Volume 92.2 fl (82-101); Mean Platelet Volume 9.9 fL (7.4-10.4); Monocytes # 0.5 10^3/uL (0.2-0.9); Monocytes % 6.6 %; Nucleated Red Blood Cells % 0 %; Platelet Count 243 10^3/cmm (157-399); Red Blood Count 4.09 10^6/uL (3.85-5.65); Red Cell Distribution Width 14.2 % (12.1-15.1); White Blood Count 6.97 10^3/uL (3.29-11.43)
[2024-05-28 19:32] LABS: Charge for UA Resulting for Rev
[2024-05-28 19:37] LABS: Bilirubin Urine Negative (Negative); Blood Urine Negative (Negative); Glucose Urine UA Negative (Normal); Ketones Urine Negative (Negative); Leukocyte Esterase Urine Negative (Negative); Nitrate Urine Negative (Negative); Protein Urine Negative (Negative); Specific Gravity, Urine 1.012 (1.005-1.030); Urine Appearance Clear (CLEAR); Urine Color Yellow (Yellow); Urobilinogen Urine 0.2 mg/dL (Negative); pH Urine 5.5 (5-7)
[2024-05-28 19:42] LABS: Bacteria Urine None Seen /hpf; RBC Urine 0-2 /hpf (0-2); Squamous Epithelial Cell Urine 0-5 /hpf (0-5); WBC Urine 0-5 /hpf (0-5)
[2024-05-28 19:52] LABS: Troponin(5th) Baseline 10 ng/L (0-15)
[2024-05-28 20:07] LABS: Alanine Aminotransferase 16 U/L (0-41); Albumin Level 3.9 g/dL (3.5-5.2); Alkaline Phosphatase 95 U/L (40-130); Aspartate Amino Transferase 14 U/L (0-40); Blood Urea Nitrogen 21 mg/dL (8-23); Calcium 8.4 mg/dL (8.5-10.5); Carbon Dioxide 33 mmol/L (22-29); Chloride 100 mmol/L (98-107); Creatinine Clr Calc Pharmacy 118.4052; Globulin 2.3 g/dL (1.3-4.6); Glucose 132 mg/dL (65-115); NT Pro B Type Natriuretic Pept 649 pg/mL (0-125); Osmolality Calculated 297 mOsm/kg (285-295); Sodium 141 mmol/L (136-145); Total Bilirubin 0.2 mg/dL (0.15-1.2); Total Protein 6.2 g/dL (6.6-8.7)
--- NOTE | 2024-05-28 21:16 | ECG_ITS ---
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 Measurements Intervals [place] Rate: 66 P: 56 CA: 278 QRS: -20 QRSD: 82 T: 54 QT: 390 QTc: 409 Interpretive Statements SINUS RHYTHM WITH FIRST DEGREE AV BLOCK Compared to ECG 04/01/2024 21:04:55 Left-axis deviation no longer present Electronically Signed On 05-28-2024 21:52:13 CDT by Kedar Coyle M.D. [email or web address]
[2024-05-28 21:23] LABS: Adenovirus Not Detected (NOT DETECT); Chlamydia Pneumoniae Not Detected (NOT DETECT); Coronavirus 229E,HKU1,NL63,OC4 Not Detected (NOT DETECT); Human Metapneumovirus Not Detected (NOT DETECT); Human Rhinovirus/Enterovirus Not Detected (NOT DETECT); Influenza A Not Detected (NOT DETECT); Influenza A H1 Not Detected (NOT DETECT); Influenza A H1-2009 Not Detected (NOT DETECT); Influenza A H3 Not Detected (NOT DETECT); Influenza B Not Detected (NOT DETECT); Mycoplasma Pneumoniae Not Detected (NOT DETECT); Parainfluenza Virus Type 1 Not Detected (NOT DETECT); Parainfluenza Virus Type 2 Not Detected (NOT DETECT); Parainfluenza Virus Type 3 Not Detected (NOT DETECT); Parainfluenza Virus Type 4 Not Detected (NOT DETECT); Respiratory Syncytial Virus A Not Detected (NOT DETECT); Respiratory Syncytial Virus B Not Detected (NOT DETECT); SARS-COV-2 Not Detected (NOT DETECT)
--- NOTE | 2024-05-28 21:30 | W.ED.CHESTPA ---
HPI - Chest Pain General: Chief Complaint: Chest Pain Stated Complaint: SOB; chest pain Time Seen by Provider: 05/28/24 18:35 History of Present Illness: 64-year-old male gentleman with no prior history of coronary disease. He presents with chest discomfort. States that he does have a history of asthma, and has been wheezing. Mild cough. Some sputum production. No fever. Chest discomfort is on the left side of his chest, and it is significant pressure like someone pushing on it he says. He has had 2 breathing treatments and Solu-Medrol with dexamethasone as well and route. He is feeling much improved. Related Data Home Medications Medication Instructions Recorded Confirmed primidone 50 mg tablet 100 mg PO BEDTIME 12/01/22 04/02/24 pantoprazole 40 mg tablet,delayed 40 mg PO DAILY 01/31/24 04/02/24 release prednisone 5 mg tablet 10 mg PO DAILY PRN asthma 03/27/24 04/02/24 atorvastatin 20 mg tablet 20 mg PO DAILY 03/29/24 04/02/24 azithromycin 500 mg tablet 500 mg PO DAILY 04/02/24 04/02/24 benralizumab 30 mg/mL subcutaneous 30 mg SUBCUT .Q 8WKS 04/02/24 04/02/24 auto-injector (Fasenra Pen) budesonide 160 mcg-glycopyr 9 2 inh inhalation BID 04/02/24 04/02/24 mcg-formot 4.8 mcg/actuation HFA inhaler (Breztri Aerosphere) guaifenesin 600 mg tablet, 600 mg PO Q12H PRN Congestion 04/02/24 04/02/24 extended release 12 hr ipratropium 0.5 mg-albuterol 3 mg 3 ml inhalation Q6H PRN Shortness 04/02/24 04/02/24 (2.5 mg base)/3 mL nebulization Of Breath Or Wheezing soln Previous Rx's Medication Instructions Recorded hsopital bed #1 ea 08/28/22 wheelchair #1 ea 08/28/22 A7005 Nebulizer Set #1 ea 10/13/23 olanzapine 2.5 mg tablet (Zyprexa) 2.5 mg PO DAILY #90 tabs 11/05/23 levalbuterol tartrate 45 2 inh inhalation Q6H PRN shortness 02/09/24 mcg/actuation aerosol inhaler of breath or wheezing #15 grams nitroglycerin 0.4 mg sublingual See Rx Instructions .Route 03/16/24 tablet .COMPLEX #25 tabs tezepelumab-ekko 210 mg/1.91 mL 210 mg (1.91 mL) SUBCUT .Q 4 weeks 03/22/24 (110 mg/mL) subcutaneous pen #1.91 mL injector (Tezspire) isosorbide mononitrate 30 mg 60 mg (2 x 30 mg) PO DAILY #60 tabs 03/29/24 tablet,extended release 24 hr metoprolol tartrate 25 mg tablet 12.5 mg (1/2 x 25 mg) PO Q12H #30 03/29/24 tabs prednisone 10 mg tablet See Taper PO BID #42 tabs 04/05/24 citalopram 40 mg tablet 40 mg PO DAILY #30 tabs 05/25/24 gabapentin 300 mg capsule See Rx Instructions .Route 05/25/24 .COMPLEX #90 caps montelukast 10 mg tablet 10 mg PO DAILY #30 tabs 05/25/24 methylprednisolone 4 mg tablets in See Rx Instructions PO .COMPLEX 05/28/24 a dose pack (Medrol (Beka)) #21 ea Allergies Allergy/AdvReac Type Severity Reaction Status Date / Time No Known Allergies Allergy Verified 02/19/24 08:21 [facility] ED PFS: Medical History Chronic hypoxemic respiratory failure Acute on chronic hypoxic respiratory failure Sleep walking Asthma-COPD overlap syndrome CHF exacerbation Degenerative lumbar disc History of compression fracture of spine Left leg DVT 07/2022 Cognitive impairment GERD (gastroesophageal reflux disease) Tremor Chronic neck pain Pulmonary emphysema with fibrosis of lung Surgical History History of cataract extraction bilateral History of tonsillectomy Hx of appendectomy Family History Other Dementia Stroke Denies family history of Diabetes CAD (coronary artery disease) Clotting disorder Hyperlipidemia Psychiatric illness Chronic kidney disease (CKD) Suicide Anesthesia complication Bleeding disorder Family history of premature coronary artery disease Lung disease Cancer Hypertension Social History Smoking and tobacco/nicotine status: former use of tobacco/nicotine Quit status (tobacco/nicotine): has quit using Year quit tobacco: 2018 Former quit date comment: 1pack per month x 2 years Second hand smoke exposure: No Alcohol intake: never Substance/Drug Use: never Physical Exam Const: COMMON NORMALS: no acute distress GENERAL APPEARANCE: cooperative and ill appearing (Mildly); not frail appearing HENMT: COMMON NORMALS: normocephalic, atraumatic and Normal external nose present HEAD & SCALP: normocephalic and atraumatic FACE & SINUS: normal facial exam and face symmetric NOSE: Normal external nose present Eye: COMMON NORMALS: Equal, round and reactive pupils present and EOMs intact bilaterally PUPIL: Yes Equal, round and reactive pupils present Neck/C-Spine: GENERAL: Yes trachea midline Chest: CHEST: Yes Symmetrical chest wall rise Resp: EFFORT & INSPECTION: No respiratory distress AUSCULTATION: diminished lung sounds Cardio: COMMON NORMALS: regular rate and regular rhythm RATE: regular rate RHYTHM: regular rhythm GI: COMMON NORMALS: Normal to inspection, nondistended, normoactive bowel sounds present Extremity: COMMON NORMALS: no pedal edema Neuro: AYAN COMA SCALE: document GCS findings [place] coma scale eye opening: Spontaneous Ayan coma scale verbal response: Orientated Ayan coma scale motor response: Obey commands Ayan coma scale total score: 15 SENSORY EXAM: Yes extremities (intact) Psych: COMMON NORMALS: speech normal SPEECH: Yes normal speech Skin: COMMON NORMALS: no rashes or lesions noted GENERAL SKIN EXAM: no rashes or lesions noted Course Vital Signs: Vital signs: Vital Signs Temperature 98.1 F 05/28/24 18:50 Pulse Rate 65 05/28/24 22:30 Respiratory Rate 13 05/28/24 22:30 Blood Pressure 107/61 05/28/24 22:30 Pulse Oximetry 92 05/28/24 22:30 Oxygen Delivery Me thod Nasal Cannula 05/28/24 20:25 Oxygen Flow Rate 4 05/28/24 20:25 MDM - Chest Pain Medical Decision Making Patient presents improved after breathing treatments and Solu-Medrol. He is given Lasix here with output of nearly 2 L of urine. He is feeling even better. Chest discomfort is essentially resolved. His first troponin is 10. BNP is 650. Respiratory panel is negative. Hemoglobin is 11. White blood cell count is 7. Chest x-ray is nonacute. EKG shows no acute ST wave changes. He is stable for discharge. He will go home on steroids, nebulizers, and return for any worsening symptoms. Lab Data 05/28/24 19:20 05/28/24 19:20 Radiology Impressions Chest X-Ray 05/28/24 19:02 IMPRESSION: No acute findings. Laboratory Results WBC 6.97 10^3/uL (3.29-11.43) 05/28/24 19:20 RBC 4.09 10^6/uL (3.85-5.65) 05/28/24 19:20 Hgb 11.30 g/dL (11.27-16.99) 05/28/24 19:20 Hct 37.7 % (37-53) 05/28/24 19:20 MCV 92.2 fl (82-101) 05/28/24 19:20 MCH 27.6 pg (27-33) 05/28/24 19:20 MCHC 30.0 g/dL (30-55) 05/28/24 19:20 RDW 14.2 % (12.1-15.1) 05/28/24 19:20 Plt Count 243 10^3/cmm (157-399) 05/28/24 19:20 MPV 9.9 fL (7.4-10.4) 05/28/24 19:20 Neut % (Auto) 79.0 % 05/28/24 19:20 Lymph % (Auto) 12.5 % 05/28/24 19:20 Ford % (Auto) 6.6 % 05/28/24 19:20 Eos % (Auto) 1.1 % 05/28/24 19:20 Baso % (Auto) 0.1 % 05/28/24 19:20 Neut # (Auto) 5.50 10^3/uL (1.8-7.7) 05/28/24 19:20 Lymph # (Auto) 0.9 10^3/uL (0.8-4.8) 05/28/24 19:20 Ford # (Auto) 0.5 10^3/uL (0.2-0.9) 05/28/24 19:20 Eos # (Auto) 0.1 10^3/uL (0.0-0.8) 05/28/24 19:20 Baso # (Auto) 0.0 10^3/uL (0.0-0.1) 05/28/24 19:20 Nucleated RBC % (auto) 0 % 05/28/24 19:20 Nucleated RBCs # 0.0 /100WBC 05/28/24 19:20 Sodium 141 mmol/L (136-145) 05/28/24 19:20 Potassium 4.0 mmol/L (3.5-5.1) 05/28/24 19:20 Chloride 100 mmol/L (98-107) 05/28/24 19:20 Carbon Dioxide 33 mmol/L (22-29) H 05/28/24 19:20 Anion Gap 12.0 (5-19) 05/28/24 19:20 BUN 21 mg/dL (8-23) 05/28/24 19:20 Creatinine 0.8 mg/dL (0.7-1.2) 05/28/24 19:20 GFR Calculation 97.0 mL/min (90-130) 05/28/24 19:20 Glucose 132 mg/dL (65-115) H 05/28/24 19:20 Calculated Osmolality 297 mOsm/kg (285-295) H 05/28/24 19:20 Calcium 8.4 mg/dL (8.5-10.5) L 05/28/24 19:20 Total Bilirubin 0.2 mg/dL (0.15-1.2) 05/28/24 19:20 AST 14 U/L (0-40) 05/28/24 19:20 ALT 16 U/L (0-41) 05/28/24 19:20 Alkaline Phosphatase 95 U/L (40-130) 05/28/24 19:20 Troponin T Baseline 10 ng/L (0-15) 05/28/24 19:20 Troponin T 120 Minute 10.51 ng/L (0-15) 05/28/24 21:28 Delta Troponin T 0.51 ABS# (0-10) 05/28/24 21:28 NT-Pro-B Natriuret Pep 649 pg/mL (0-125) H 05/28/24 19:20 Total Protein 6.2 g/dL (6.6-8.7) L 05/28/24 19:20 Albumin 3.9 g/dL (3.5-5.2) 05/28/24 19:20 Globulin 2.3 g/dL (1.3-4.6) 05/28/24 19:20 Urine Color Yellow (Yellow) 05/28/24 19:25 Urine Appearance Clear (CLEAR) 05/28/24 19:25 Urine pH 5.5 (5-7) 05/28/24 19:25 Ur Specific Cranks 1.012 (1.005-1.030) 05/28/24 19:25 Urine Protein Negative (Negative) 05/28/24 19:25 Urine Glucose (UA) Negative (Normal) 05/28/24 19: Urine Ketones Negative (Negative) 05/28/24 19: Urine Blood Negative (Negative) 05/28/24: Urine Nitrate Negative (Negative) 05/28/24 19: Urine Bilirubin Negative (Negative) 05/28/24 19:25 Urine Urobilinogen 0.2 mg/dL (Negative) 05/28/24 19:25 Ur Leukocyte Esterase Negative (Negative) 05/28/24 19:25 Urine RBC 0-2 /hpf (0-2) 05/28/24 19:25 Urine WBC 0-5 /hpf (0-5) 05/28/24 19:25 Ur Squamous Epith Cells 0-5 /hpf (0-5) 05/28/24 19:25 Amorphous Sediment Not Reportable 05/28/24 19:25 Urine Bacteria None seen /hpf (NONE) 05/28/24 19:25 Hyaline Casts 0.40 /lpf 05/28/24 19:25 Adenovirus (PCR) Not detected (NOT DETECT) 05/28/24 19:25 C. pneumoniae DNA (PCR) Not detected (NOT DETECT) 05/28/24 19:25 Coronavirus 229E (PCR) Not detected (NOT DETECT) 05/28/24 19:25 Human Metapneumovir PCR Not detected (NOT DETECT) 05/28/24 19:25 Influenza A (H1) PCR Not detected (NOT DETECT) 05/28/24 19:25 Influ A (H1/09) PCR Not detected (NOT DETECT) 05/28/24 19:25 Influenza A (H3) PCR Not detected (NOT DETECT) 05/28/24 19:25 Influenza Type A (PCR) Not detected (NOT DETECT) 05/28/24 19:25 Influenza Type B (PCR) Not detected (NOT DETECT) 05/28/24 19:25 M. pneumoniae (PCR) Not detected (NOT DETECT) 05/28/24 19:25 Parainfluenza 1 (PCR) Not detected (NOT DETECT) 05/28/24 19:25 Parainfluenza 2 (PCR) Not detected (NOT DETECT) 05/28/24 19:25 Parainfluenza 3 (PCR) Not detected (NOT DETECT) 05/28/24 19:25 Parainfluenza 4 (PCR) Not detected (NOT DETECT) 05/28/24 19:25 RSV Type A (PCR) Not detected (NOT DETECT) 05/28/24 19:25 RSV Type B (PCR) Not detected (NOT DETECT) 05/28/24 19:25 Entero/Rhino (PCR) Not detected (NOT DETECT) 05/28/24 19:25 SARS-CoV-2 (PCR) Not detected (NOT DETECT) 05/28/24 19:25 All radiology interpretation(s) finalized by discharge Discharge Plan Discharge Patient Disposition: Home Clinical Impression: Chest pain, Pulmonary emphysema with fibrosis of lung Condition: Stable Prescriptions: New Medrol (Beka) 4 mg tablets,dose pack See Rx Instructions .ROUTE .COMPLEX Qty: 21 0RF Rx Instructions: orally per package directions No Action (DME) wheelchair See Rx Instructions .Route .MEDSUPPLY Qty: 1 0RF Rx Instructions: As directed (DME) hsopital bed See Rx Instructions .Route .MEDSUPPLY Qty: 1 0RF Rx Instructions: As directed olanzapine [Zyprexa] 2.5 mg tablet 2.5 mg PO DAILY Qty: 90 1RF primidone 50 mg tablet 100 mg PO BEDTIME levalbuterol tartrate 45 mcg/actuation HFA aerosol inhaler 2 inh inhalation Q6H PRN (Reason: shortness of breath or wheezing) Qty: 15 5RF (DME) A7005 Nebulizer Set See Rx Instructions .Route .MEDSUPPLY Qty: 1 0RF Rx Instructions: As directed nitroglycerin 0.4 mg tablet, sublingual See Rx Instructions .ROUTE .COMPLEX Qty: 25 0RF Dose Instruction: DISSOLVE ONE TABLET UNDER THE TONGUE EVERY 5 MINUTES NEEDED FOR CHEST PAIN. DO NOT EXCEED A TOTAL OF 3 DOSES IN 15 MINUTES Rx Instructions: DISSOLVE ONE TABLET UNDER THE TONGUE EVERY 5 MINUTES NEEDED FOR CHEST PAIN. DO NOT EXCEED A TOTAL OF 3 DOSES IN 15 MINUTES Tezspire 210 mg/1.91 mL (110 mg/mL) pen injector 210 mg SUBCUT .Q 4 weeks Qty: 1.91 11RF montelukast 10 mg tablet 10 mg PO DAILY Qty: 30 1RF citalopram 40 mg tablet 40 mg PO DAILY Qty: 30 0RF gabapentin 300 mg capsule See Rx Instructions .ROUTE .COMPLEX Qty: 90 0RF Dose Instruction: TAKE 1 CAPSULE BY MOUTH EVERY 8 HOURS Rx Instructions: TAKE 1 CAPSULE BY MOUTH EVERY 8 HOURS pantoprazole 40 mg tablet,delayed release (DR/EC) 40 mg PO DAILY prednisone 5 mg tablet 10 mg PO DAILY PRN (Reason: asthma) Hold Instructions: Resume on 04/19/24. hold while on steroid taper atorvastatin 20 mg tablet 20 mg PO DAILY isosorbide mononitrate 30 mg tablet extended release 24 hr 60 mg PO DAILY Qty: 60 0RF metoprolol tartrate 25 mg tablet 12.5 mg PO Q12H Qty: 30 0RF ipratropium-albuterol 0.5 mg-3 mg(2.5 mg base)/3 mL Solution For Nebulization 3 ml INHALATION Q6H PRN (Reason: Shortness Of Breath Or Wheezing) azithromycin 500 mg tablet 500 mg PO DAILY Rx Instructions: take one tablet by mouth daily for 3 days guaifenesin 600 mg Tablet Extended Release 12hr 600 mg PO Q12H PRN (Reason: Congestion) Fasenra Pen 30 mg/mL auto-injector 30 mg SUBCUT .Q 8WKS Juliettri Aerosphere 160-9-4.8 mcg/actuation HFA aerosol inhaler 2 inh INHALATION BID prednisone 10 mg tablet See Taper PO BID Qty: 42 0RF Taper: predniSONE 60-10 60 mg Daily for 2 Days and 0 Hour 50 mg Daily for 2 Days and 0 Hour 40 mg Daily for 2 Days and 0 Hour 30 mg Daily for 2 Days and 0 Hour 20 mg Daily for 2 Days and 0 Hour 10 mg Daily for 2 Days and 0 Hour Discharge Orders: Discharge ED (Routine); Ordered 05/28/24 Ordered By: Kalen Bass Referrals: Katherine Horner NP [Primary Care Provider] - 1-3 days Patient Instructions: Asthma Exacerbation - Adult, Opioid Safety, Pain Management Activity Restrictions/Additional Instructions: Medications as directed. Use your nebulizer machine every 4 hours while awake scheduled for the first 48 hours, then as needed following that. Return for return of chest discomfort, worsening shortness of breath, any other concerning symptoms. See your doctor this coming week. 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
[2024-05-28 21:59] LABS: Troponin 5 2HR 10.51 ng/L (0-15); Troponin 5 2HR Delta 0.51 ABS# (0-10)
== END 2024-05-28 22:46 | disposition home or self-care (01) ==
PROVIDERS: Emergency Provider Emergency Medicine; PCP Nurse Practitioner Family
DX: R07.9 Chest pain, unspecified (principal); J43.8 Other emphysema; J84.10 Pulmonary fibrosis, unspecified; Z11.52 Encounter for screening for COVID-19; Z87.891 Personal history of nicotine dependence; I50.9 Heart failure, unspecified
CPT/HCPCS: 36415; 71045; 80053; 81003; 81015; 83880; 84484; 85025; 87486; 87581; 87633; 93005; 96374; 96375; 99285; J1940; J2270; J2405

== ENCOUNTER 2024-06-04 16:31 | Inpatient (IN) | payer MEDICARE, MEDICAID, SELFPAY ==
[2024-06-04] VITALS (8 sets, daily range): BP systolic 115–136; BP diastolic 71–81; PULSE 58–67; RESP 16–19; TEMP 36.5–36.8; O2SAT 96–98; BMI 31.9; BMI 43.0
--- NOTE | 2024-06-04 16:40 | ECG_ITS ---
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
--- NOTE | 2024-06-04 16:40 | XRR_ITS ---
PROCEDURE INFORMATION: Exam: XR Chest Exam date and time: 06/04/2024 5:07 PM Age: 64 years old Clinical indication: Shortness of breath; Patient HX: SOB TECHNIQUE: Imaging protocol: Radiologic exam of the chest. Views: 1 view. COMPARISON: CR (CHEST, ) 05/28/2024 7:06 PM FINDINGS: Lungs: No focal consolidation. Mid lung hazy opacities on the right suspicious for developing bronchopneumonia in the proper clinical setting. Pleural spaces: No evidence of pneumothorax. No evidence of pleural effusion. Heart/Mediastinum: Cardiomediastinal silhouette is within normal limits. Bones/joints: No evidence of acute osseous abnormality. XR/XR chest 1V portable [id number] IMPRESSION: 1. Mid lung hazy opacities on the right suspicious for developing bronchopneumonia in the proper clinical setting.
--- NOTE | 2024-06-04 16:47 | W.ED.SOB ---
HPI - SOB/Dyspnea General: Chief Complaint: Shortness of Breath/Dyspnea Stated Complaint: sob Time Seen by Provider: 06/04/24 16:35 History of Present Illness: HPI Narrative: 64-year-old man with history of COPD, CHF and chronic hypoxemic respiratory failure on 4 L nasal cannula at all times who presents to the emergency room with worsening shortness of breath. He was seen in the emergency room about a week ago and placed on steroids. He says he become much more short of breath. EMS reports that when they arrived he was hypoxemic on his home 4 L and they had to place him on 6 L. He has improved some with a breathing treatment and route. Has had some chest tightness. No nausea or vomiting. No abdominal pain. He has lower extremity swelling he says that his fairly similar to his baseline. No altered mental status. No focal motor deficits. No fevers. Related Data Home Medications Medication Instructions Recorded Confirmed primidone 50 mg tablet 100 mg PO BEDTIME 12/01/22 04/02/24 pantoprazole 40 mg tablet,delayed 40 mg PO DAILY 01/31/24 04/02/24 release prednisone 5 mg tablet 10 mg PO DAILY PRN asthma 03/27/24 04/02/24 atorvastatin 20 mg tablet 20 mg PO DAILY 03/29/24 04/02/24 azithromycin 500 mg tablet 500 mg PO DAILY 04/02/24 04/02/24 benralizumab 30 mg/mL subcutaneous 30 mg SUBCUT .Q 8WKS 04/02/24 04/02/24 auto-injector (Fasenra Pen) budesonide 160 mcg-glycopyr 9 2 inh inhalation BID 04/02/24 04/02/24 mcg-formot 4.8 mcg/actuation HFA inhaler (Breztri Aerosphere) guaifenesin 600 mg tablet, 600 mg PO Q12H PRN Congestion 04/02/24 04/02/24 extended release 12 hr ipratropium 0.5 mg-albuterol 3 mg 3 ml inhalation Q6H PRN Shortness 04/02/24 04/02/24 (2.5 mg base)/3 mL nebulization Of Breath Or Wheezing soln Previous Rx's Medication Instructions Recorded hsopital bed #1 ea 08/28/22 wheelchair #1 ea 08/28/22 A7005 Nebulizer Set #1 ea 10/13/23 olanzapine 2.5 mg tablet (Zyprexa) 2.5 mg PO DAILY #90 tabs 11/05/23 levalbuterol tartrate 45 2 inh inhalation Q6H PRN shortness 02/09/24 mcg/actuation aerosol inhaler of breath or wheezing #15 grams nitroglycerin 0.4 mg sublingual See Rx Instructions .Route 03/16/24 tablet .COMPLEX #25 tabs tezepelumab-ekko 210 mg/1.91 mL 210 mg (1.91 mL) SUBCUT .Q 4 weeks 03/22/24 (110 mg/mL) subcutaneous pen #1.91 mL injector (Tezspire) isosorbide mononitrate 30 mg 60 mg (2 x 30 mg) PO DAILY #60 tabs 03/29/24 tablet,extended release 24 hr metoprolol tartrate 25 mg tablet 12.5 mg (1/2 x 25 mg) PO Q12H #30 03/29/24 tabs prednisone 10 mg tablet See Taper PO BID #42 tabs 04/05/24 citalopram 40 mg tablet 40 mg PO DAILY #30 tabs 05/25/24 gabapentin 300 mg capsule See Rx Instructions .Route 05/25/24 .COMPLEX #90 caps montelukast 10 mg tablet 10 mg PO DAILY #30 tabs 05/25/24 methylprednisolone 4 mg tablets in See Rx Instructions PO .COMPLEX 05/28/24 a dose pack (Medrol (Beka)) #21 ea Allergies Allergy/AdvReac Type Severity Reaction Status Date / Time No Known Allergies Allergy Verified 02/19/24 08:21 Review of Systems Narrative: Constitutional symptoms: Negative except as documented in HPI. Skin symptoms: Negative except as documented in HPI. Eye symptoms: Negative except as documented in HPI. ENMT symptoms: Negative except as documented in HPI. Respiratory symptoms: Negative except as documented in HPI. Cardiovascular symptoms: Negative except as documented in HPI. Gastrointestinal symptoms: Negative except as documented in HPI. Genitourinary symptoms: Negative except as documented in HPI. Musculoskeletal symptoms: Negative except as documented in HPI. Neurologic symptoms: Negative except as documented in HPI. Psychiatric symptoms: Negative except as documented in HPI. Endocrine symptoms: Negative except as documented in HPI. PFS ED PFSH: Medical History Chronic hypoxemic respiratory failure Acute on chronic hypoxic respiratory failure Sleep walking Asthma-COPD overlap syndrome CHF exacerbation Degenerative lumbar disc History of compression fracture of spine Left leg DVT 07/2022 Cognitive impairment GERD (gastroesophageal reflux disease) Tremor Chronic neck pain Pulmonary emphysema with fibrosis of lung Surgical History History of cataract extraction bilateral History of tonsillectomy Hx of appendectomy Family History Other Dementia Stroke Denies family history of Diabetes CAD (coronary artery disease) Clotting disorder Hyperlipidemia Psychiatric illness Chronic kidney disease (CKD) Suicide Anesthesia complication Bleeding disorder Family history of premature coronary artery disease Lung disease Cancer Hypertension Social History Smoking and tobacco/nicotine status: former use of tobacco/nicotine Quit status (tobacco/nicotine): has quit using Year quit tobacco: 2017 Former quit date comment: 1pack per month x 2 years Second hand smoke exposure: No Alcohol intake: never Substance/Drug Use: never Physical Exam Narrative: EXAM NARRATIVE: General: Alert, no acute distress. Skin: Warm, dry. Head: Normocephalic, atraumatic. Neck: Supple, trachea midline. Eye: Extraocular movements are intact. Ears, nose, mouth and throat: Oral mucosa moist. Cardiovascular: Regular rate and rhythm, Normal peripheral perfusion. 2+ tibial edema. Respiratory: coarse, scattered wheeze, mild increased wob. tachypnea, breath sounds are equal, Symmetrical chest wall expansion. Gastrointestinal: Soft, Nontender, Non distended, Normal bowel sounds. Musculoskeletal: Normal ROM, no deformity. Neurological: Alert and oriented to person, place, time, and situation, No focal neurological deficit observed. Psychiatric: Cooperative, appropriate mood & affect. Course Vital Signs: Vital signs: Vital Signs Temperature 98.3 F 06/04/24 16:36 Pulse Rate 65 06/04/24 17:10 Respiratory Rate 16 06/04/24 17:10 Blood Pressure 117/81 06/04/24 17:10 Pulse Oximetry 98 06/04/24 17:10 Oxygen Delivery Me thod Nasal Cannula 06/04/24 17:10 Oxygen Flow Rate 4 06/04/24 17:10 MDM - SOB/Dyspnea Medical Decision Making Differential diagnosis for patient with shortness of breath includes but is not limited to and based on the above HPI, review of systems and physical exam: Pneumonia. Bronchitis. Asthma or COPD with acute exacerbation. Acute coronary syndrome / ME. Pulmonary embolism. Anxiety. Congestive heart failure. Viral infections including influenza and Covid-19. Atrial fibrillation. Anxiety. Pleural effusion. Pneumothorax. Workup: Lab work, chest X-ray and EKG ordered to evaluate, rule in and rule out above pathologies EKG: Time 1706. Rate 63. Normal sinus rhythm, No ST-T changes, no ectopy, first degree AV Block, EP Interpretation. This was reviewed and interpreted by myself the ER physician at 1710 AB.3 with an O2 sat of 98% on 6 L. Chest x-ray: Mild opacities in the right lung suspicious for developing pneumonia. No pneumothorax. This was reviewed and interpreted by myself the ER physician. Lab Review: Laboratory results were reviewed and interpreted by myself the emergency room physician. No leukocytosis. Hemoglobin 11. BUN and creatinine are 29 and 1. Respiratory panel is negative. proBNP is only 220. I reviewed the patient's medical record. Reexamination: Patient remained stable. Still with some wheeze. Mild increased work of breathing. At rest he requires only 4 L but has increased requirements with standing and is outside of his baseline. requests admission. I do not disagree. No altered mental status. No focal motor deficits. Assessment and plan: COPD with acute exacerbation Acute on chronic hypoxemic respiratory failure Community-acquired pneumonia ?Stable on 4 to 6 L nasal cannula. ?2 updrafts and route and 1 updraft here. IV Solu-Medrol here. IV Levaquin here. -I discussed the patient with the hospitalist on-call who is admitting the patient. - Discussed findings and plan with patient. Answered any questions. - All laboratory values were reviewed and interpreted personally by myself, the ER physician - All imaging was reviewed and interpreted personally by myself, the ER physician. - Evaluation and treatment of this problem were appropriate in the emergency setting -I spent a total of >35 minutes of critical care time managing the patient, independent of any other practitioner. -The time involved in the performance of separately reportable procedures was not counted towards critical care time. Lab Data 06/04/24 17:06 06/04/24 17:06 Labs/Radiology: Radiology Impressions Chest X-Ray 06/04/24 16:40 IMPRESSION: 1. Mid lung hazy opacities on the right suspicious for developing bronchopneumonia in the proper clinical setting. Laboratory Results WBC 8.64 10^3/uL (3.29-11.43) 06/04/24 17:06 RBC 3.99 10^6/uL (3.85-5.65) 06/04/24 17:06 Hgb 11.00 g/dL (11.27-16.99) L 06/04/24 17:06 Hct 36.8 % (37-53) L 06/04/24 17:06 MCV 92.2 fl (82-101) 06/04/24 17:06 MCH 27.6 pg (27-33) 06/04/24 17:06 MCHC 29.9 g/dL (30-55) L 06/04/24 17:06 RDW 14.2 % (12.1-15.1) 06/04/24 17:06 Plt Count 211 10^3/cmm (157-399) 06/04/24 17:06 MPV 10.2 fL (7.4-10.4) 06/04/24 17:06 Neut % (Auto) 62.0 % 06/04/24 17:06 Lymph % (Auto) 22.3 % 06/04/24 17:06 Hutchinson % (Auto) 11.9 % 06/04/24 17:06 Eos % (Auto) 2.5 % 06/04/24 17:06 Baso % (Auto) 0.1 % 06/04/24 17:06 Neut # (Auto) 5.35 10^3/uL (1.8-7.7) 06/04/24 17:06 Lymph # (Auto) 1.9 10^3/uL (0.8-4.8) 06/04/24 17:06 Hutchinson # (Auto) 1.0 10^3/uL (0.2-0.9) H 06/04/24 17:06 Eos # (Auto) 0.2 10^3/uL (0.0-0.8) 06/04/24 17:06 Baso # (Auto) 0.0 10^3/uL (0.0-0.1) 06/04/24 17:06 Nucleated RBC % (auto) 0 % 06/04/24 17:06 Nucleated RBCs # 0.0 /100WBC 06/04/24 17:06 Specimen Type Arterial 06/04/24 16:44 Sample Site Radial, right 06/04/24 16:44 ABG pH 7.36 (7.35-7.45) 06/04/24 16:44 ABG pCO2 57.3 mmHg (35-45) H 06/04/24 16:44 ABG pO2 97.3 mmHg (80.0-100.0) 06/04/24 16:44 ABG HCO3 32.3 mmol/L (22-26) H 06/04/24 16:44 ABG O2 Saturation 98.3 06/04/24 16:44 ABG Base Excess 5.4 mmol/L (-2.0-2.0) H 06/04/24 16:44 Wilmer Test Pos 06/04/24 16:44 A-a O2 Gradient Not Reportable 06/04/24 16:44 Hematocrit 35.5 % (42-52) L 06/04/24 16:44 Hgb O2 Saturation 96.3 % (95-100) 06/04/24 16:44 Carboxyhemoglobin 1.0 %THgb (0.4-20.1) 06/04/24 16:44 Methemoglobin 1.1 % (0.4-1.5) 06/04/24 16:44 Total Hemoglobin 11.6 g/dL (14-18) L 06/04/24 16:44 Sodium 141.0 mmol/L (131-143) 06/04/24 16:44 Potassium 4.1 mmol/L (3.5-5.0) 06/04/24 16:44 Glucose 127.0 mg/dL (70-115) H 06/04/24 16:44 Ionized Calcium 1.2 mmol/L (1.1-1.4) 06/04/24 16:44 O2 Delivery Device Nc 06/04/24 16:44 O2 Liters/Min 6.0 % 06/04/24 16:44 World Designer ID [place] 06/04/24 16:44 Sodium 140 mmol/L (136-145) 06/04/24 17:06 Potassium 4.5 mmol/L (3.5-5.1) 06/04/24 17:06 Chloride 103 mmol/L (98-107) 06/04/24 17:06 Carbon Dioxide 30 mmol/L (22-29) H 06/04/24 17:06 Anion Gap 11.5 (5-19) 06/04/24 17:06 BUN 29 mg/dL (8-23) H 06/04/24 17:06 Creatinine 1.0 mg/dL (0.7-1.2) 06/04/24 17:06 GFR Calculation 75.0 mL/min (90-130) L 06/04/24 17:06 Glucose 131 mg/dL (65-115) H 06/04/24 17:06 Calculated Osmolality 298 mOsm/kg (285-295) H 06/04/24 17:06 Lactic Acid 1.0 mmol/L (0.5-2.2) 06/04/24 17:06 Calcium 8.3 mg/dL (8.5-10.5) L 06/04/24 17:06 Total Bilirubin 0.2 mg/dL (0.15-1.2) 06/04/24 17:06 AST 17 U/L (0-40) 06/04/24 17:06 ALT 28 U/L (0-41) 06/04/24 17:06 Alkaline Phosphatase 100 U/L (40-130) 06/04/24 17:06 Troponin T Baseline 12 ng/L (0-15) 06/04/24 17:06 C-Reactive Protein 11.5 mg/L (0.0-4.9) H 06/04/24 17:06 NT-Pro-B Natriuret Pep 220 pg/mL (0-125) H 06/04/24 17:06 Total Protein 6.0 g/dL (6.6-8.7) L 06/04/24 17:06 Albumin 3.7 g/dL (3.5-5.2) 06/04/24 17:06 Globulin 2.3 g/dL (1.3-4.6) 06/04/24 17:06 Coronavirus (PCR) Negative (Negative) 06/04/24 17:07 Influenza A (PCR) Negative (Negative) 06/04/24 17:07 Influenza Type B (PCR) Negative (Negative) 06/04/24 17:07 RSV (PCR) Negative (Negative) 06/04/24 17:07 All radiology interpretation(s) finalized by discharge Discharge Plan Discharge Patient Disposition: Admitted As Inpatient Clinical Impression: COPD with acute exacerbation, Acute on chronic hypoxic respiratory failure, Community acquired bacterial pneumonia Condition: Stable Coding Level of Care Code 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
[2024-06-04 16:55] LABS: ABG PCO2 57.3 mmHg (35-45); ABG PH Result 7.36 (7.35-7.45); Arterial Blood Gas Hematocrit 35.5 % (42-52); Base Excess ABG 5.4 mmol/L (-2.0-2.0); Blood Gas Allen Test Pos; Blood Gas Operator Identificat WALCI; Blood Gas Sample Site Radial, right; Blood Gas Sample Type Arterial; HCO3 ABG 32.3 mmol/L (22-26); HGB O2 Sat 96.3 % (95-100); Ionized Calcium Level - ABG 1.2 mmol/L (1.1-1.4); Methemoglobin 1.1 % (0.4-1.5); Oxygen Device NC; Oxygen Saturation ABG 98.3; PO2 ABG 97.3 mmHg (80.0-100.0); Potassium Level - ABG 4.1 mmol/L (3.5-5.0); Total Hemoglobin 11.6 g/dL (14-18)
[2024-06-04] MEDS: methylPREDNISolone sod succ 125 mg/2 mL INJ IVP (16:58)
[2024-06-04] MEDS: albuterol 2.5 mg/3 mL Neb INHALATION (17:03)
[2024-06-04 17:13] LABS: Basophils % 0.1 %; Eosinophils # 0.2 10^3/uL (0.0-0.8); Eosinophils % 2.5 %; Hematocrit 36.8 % (37-53); Lymphocytes # 1.9 10^3/uL (0.8-4.8); Lymphocytes % 22.3 %; Mean Corpuscular HGB Conc 29.9 g/dL (30-55); Mean Corpuscular Hemoglobin 27.6 pg (27-33); Mean Corpuscular Volume 92.2 fl (82-101); Mean Platelet Volume 10.2 fL (7.4-10.4); Monocytes % 11.9 %; Neutrophils # 5.35 10^3/uL (1.8-7.7); Nucleated Red Blood Cells % 0 %; Platelet Count 211 10^3/cmm (157-399); Red Blood Count 3.99 10^6/uL (3.85-5.65); Red Cell Distribution Width 14.2 % (12.1-15.1); White Blood Count 8.64 10^3/uL (3.29-11.43)
[2024-06-04 17:31] LABS: Troponin(5th) Baseline 12 ng/L (0-15)
[2024-06-04 17:44] LABS: Alanine Aminotransferase 28 U/L (0-41); Albumin Level 3.7 g/dL (3.5-5.2); Alkaline Phosphatase 100 U/L (40-130); Anion Gap 11.5 (5-19); Aspartate Amino Transferase 17 U/L (0-40); Blood Urea Nitrogen 29 mg/dL (8-23); C Reactive Protein 11.5 mg/L (0.0-4.9); Calcium 8.3 mg/dL (8.5-10.5); Carbon Dioxide 30 mmol/L (22-29); Chloride 103 mmol/L (98-107); Creatinine Clr Calc Pharmacy 82.4392; Globulin 2.3 g/dL (1.3-4.6); Glucose 131 mg/dL (65-115); NT Pro B Type Natriuretic Pept 220 pg/mL (0-125); Osmolality Calculated 298 mOsm/kg (285-295); Potassium 4.5 mmol/L (3.5-5.1); Sodium 140 mmol/L (136-145); Total Bilirubin 0.2 mg/dL (0.15-1.2)
[2024-06-04 17:51] LABS: Covid PCR NEGATIVE (Negative); Influenza A NEGATIVE (Negative); Influenza B NEGATIVE (Negative); Respiratory Syncytial Virus Ce NEGATIVE (Negative)
--- NOTE | 2024-06-04 18:14 | PM.HP ---
Providers/Chief Complaint Primary Care Provider: Katherine Horner NP Chief Complaint: sob History of Present Illness Elvin Nunn is a 64 year old male with a past medical history significant for chronic hypoxic respiratory failure on 4 L oxygen baseline, eosinophilic asthma, COPD, heart failure with preserved ejection fraction and multiple other comorbidities who presents emergency department with worsening shortness of breath. Exertion exacerbates his breathing. He reports IV steroids typically improves his symptoms. He endorses associated cough. Describes as nonproductive. Reports associated pleurisy. Endorses bilateral lower extremity swelling. He denies nausea or vomiting. Denies other alleviating or aggravating factors. 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 She is bedside and very supportive. Review of Systems Narrative: A complete review of systems was obtained and is negative except as stated in HPI. Medications/Allergies Home Medications Medication Instructions Recorded Confirmed Last Taken Type hsopital bed #1 ea 08/28/22 04/02/24 Unknown Rx wheelchair #1 ea 08/28/22 04/02/24 Unknown Rx primidone 50 mg tablet 100 mg PO BEDTIME 12/01/22 04/02/24 03/28/24 History A7005 Nebulizer Set #1 ea 10/13/23 04/02/24 Unknown Rx olanzapine 2.5 mg tablet (Zyprexa) 2.5 mg PO DAILY #90 tabs 11/05/23 04/02/24 03/29/24 Rx pantoprazole 40 mg tablet,delayed 40 mg PO DAILY 01/31/24 04/02/24 03/29/24 History release levalbuterol tartrate 45 2 inh inhalation Q6H PRN shortness 02/09/24 04/02/24 Unknown Rx mcg/actuation aerosol inhaler of breath or wheezing #15 grams nitroglycerin 0.4 mg sublingual See Rx Instructions .Route 03/16/24 04/02/24 Unknown Rx tablet .COMPLEX #25 tabs tezepelumab-ekko 210 mg/1.91 mL 210 mg (1.91 mL) SUBCUT .Q 4 weeks 03/22/24 04/02/24 Unknown Rx (110 mg/mL) subcutaneous pen #1.91 mL injector (Tezspire) prednisone 5 mg tablet 10 mg PO DAILY PRN asthma 03/27/24 04/02/24 Unknown History atorvastatin 20 mg tablet 20 mg PO DAILY 03/29/24 04/02/24 03/29/24 History isosorbide mononitrate 30 mg 60 mg (2 x 30 mg) PO DAILY #60 tabs 03/29/24 04/02/24 03/29/24 Rx tablet,extended release 24 hr metoprolol tartrate 25 mg tablet 12.5 mg (1/2 x 25 mg) PO Q12H #30 03/29/24 04/02/24 03/29/24 Rx tabs azithromycin 500 mg tablet 500 mg PO DAILY 04/02/24 04/02/24 Unknown History benralizumab 30 mg/mL subcutaneous 30 mg SUBCUT .Q 8WKS 04/02/24 04/02/24 Unknown History auto-injector (Fasenra Pen) budesonide 160 mcg-glycopyr 9 2 inh inhalation BID 04/02/24 04/02/24 Unknown History mcg-formot 4.8 mcg/actuation HFA inhaler (Breztri Aerosphere) guaifenesin 600 mg tablet, 600 mg PO Q12H PRN Congestion 04/02/24 04/02/24 Unknown History extended release 12 hr ipratropium 0.5 mg-albuterol 3 mg 3 ml inhalation Q6H PRN Shortness 04/02/24 04/02/24 Unknown History (2.5 mg base)/3 mL nebulization Of Breath Or Wheezing soln prednisone 10 mg tablet See Taper PO BID #42 tabs 04/05/24 Unknown Rx citalopram 40 mg tablet 40 mg PO DAILY #30 tabs 05/25/24 Unknown Rx gabapentin 300 mg capsule See Rx Instructions .Route 05/25/24 Unknown Rx .COMPLEX #90 caps montelukast 10 mg tablet 10 mg PO DAILY #30 tabs 05/25/24 Unknown Rx methylprednisolone 4 mg tablets in See Rx Instructions PO .COMPLEX 05/28/24 Unknown Rx a dose pack (Medrol (Beka)) #21 ea Allergies Allergy/AdvReac Type Severity Reaction Status Date / Time No Known Allergies Allergy Verified 02/19/24 08:21 PFSH Acute PFSH: Medical History Chronic hypoxemic respiratory failure Acute on chronic hypoxic respiratory failure Sleep walking Asthma-COPD overlap syndrome CHF exacerbation Degenerative lumbar disc History of compression fracture of spine Left leg DVT 07/2022 Cognitive impairment GERD (gastroesophageal reflux disease) Tremor Chronic neck pain Pulmonary emphysema with fibrosis of lung Surgical History History of cataract extraction bilateral History of tonsillectomy Hx of appendectomy Family History Other Dementia Stroke Denies family history of Diabetes CAD (coronary artery disease) Clotting disorder Hyperlipidemia Psychiatric illness Chronic kidney disease (CKD) Suicide Anesthesia complication Bleeding disorder Family history of premature coronary artery disease Lung disease Cancer Hypertension Social History Smoking and tobacco/nicotine status: former use of tobacco/nicotine Quit status (tobacco/nicotine): has quit using Year quit tobacco: 2017 Former quit date comment: 1pack per month x 2 years Second hand smoke exposure: No Alcohol intake: never Substance/Drug Use: never Vitals/I&O/Wt Last Vital Signs Temp 98.3 F 06/04/24 16:36 Pulse 65 06/04/24 17:10 Resp 16 06/04/24 17:10 BP 117/81 06/04/24 17:10 Pulse Ox 98 06/04/24 17:10 O2 Del Method Nasal Cannula 06/04/24 17:10 O2 Flow Rate 4 06/04/24 17:10 Weight last 48 hrs Weight 95.254 kg Physical Exam Narrative: General: Patient is awake. Head: Normocephalic. Atraumatic. EOM intact. Neck: No JVD. Cardiovascular: RRR. No gallops. No murmurs. 2+ pitting edema in bilateral lower extremities. Lungs: Moderate air movement. End expiratory wheeze. Rhonchi in right lung. On nasal cannula support. Skin: No jaundice. No rashes. Abdomen: Normal bowel sounds, abdomen soft and nontender. Genito Urinary: Genital exam not performed since complaints not related. Rectal: Rectal exam not performed since no symptoms indicated blood loss. Extremities: No cyanosis or clubbing. Musculoskeletal: No erythematous joints. Neurological: Moves all 4 extremities. No myoclonus. Data 06/04/24 17:06 06/04/24 17:06 Micro: Microbiology 06/04/24 17:08 Blood Culture - Preliminary Blood SPECIMEN COLLECTED 09/07/24 17:06 Blood Culture - Preliminary Blood SPECIMEN COLLECTED A&P Assessment and plan (1) Asthma-COPD overlap syndrome: Acute asthma/COPD with exacerbation Chronic hypoxic respiratory failure Start IV Solu-Medrol Start Pulmicort Schedule breathing treatments Encourage pulmonary toilet Continue respiratory support (2) Pneumonia: Right sided community-acquired pneumonia Check procalcitonin Bacterial antigens requested Start Levaquin (3) Congestive heart failure: Acute on chronic heart failure with preserved ejection fraction Echocardiogram reviewed Hold oral diuretics Start Lasix 40 mg daily Continue chronic beta-kathryn Telemetry monitoring (4) Major depressive disorder, recurrent episode, severe, with psychosis: Continue home Celexa (5) Mixed dyslipidemia: Continue home statin (6) GERD (gastroesophageal reflux disease): Continue home PPI Qualifiers: Esophagitis presence: without esophagitis Qualified Code(s): K21.9 - Gastro-esophageal reflux disease without esophagitis Plan DVT prophylaxis: Lovenox Attestations Medical Necessity Statement*: Patient presents with shortness of breath, found to have acute COPD/asthma overlap exacerbation complicated by acute on chronic heart failure with preserved ejection exacerbation with expected hospitalization not to cross 2 midnights for IV diuresis, IV steroids, breathing treatments, and supportive care. Coding Level of Care Code Acute Code for [facility] Fwd Diagnoses Asthma-COPD overlap syndrome J44.9 Pneumonia J18.9 Congestive heart failure I50.9 Major depressive disorder, recurrent episode, severe, with psychosis F33.3 Mixed dyslipidemia E78.2 Gastroesophageal reflux disease without esophagitis K21.9 Esophagitis presence: without esophagitis
--- NOTE | 2024-06-04 18:40 | ECG_ITS ---
[facility] Test Date: 2024-06-04 Pat Name: Elvin Nunn Department: Room: Gender: Male Shift Stacker: : 1960 Requested By: Esmer Brooks Order Number: [id number] Tayler MD: NIVIA STEPHENS Measurements Intervals [place] Rate: 59 P: 63 MT: 296 QRS: -4 QRSD: 88 T: 58 QT: 401 QTc: 398 Interpretive Statements SINUS BRADYCARDIA WITH FIRST DEGREE AV BLOCK Compared to ECG 06/04/2024 17:06:31 Sinus rhythm no longer present Electronically Signed On 06-05-2024 18:57:17 CDT by NIVIA STEPHNES [email or web address] county medical centerGolfshop Onlinescci hospital [place].[email or web address]/[id number]
[2024-06-04 19:33] LABS: Troponin 5 2HR 12.09 ng/L (0-15); Troponin 5 2HR Delta 0.09 ABS# (0-10)
[2024-06-04] MEDS: levofloxacin-dextrose 5 % 750 MG/150 ML PREMIX 100 MG IV (21:14)
[2024-06-04] MEDS: enoxaparin 40 mg/0.4 mL Syringe SUBCUT (21:14)
[2024-06-04] MEDS: primidone 50 mg Tablet 100 MG PO (21:15)
[2024-06-04] MEDS: gabapentin 300 mg Capsule PO (21:15)
[2024-06-04 21:20] LABS: Procalcitonin 0.04 ng/mL (0-0.5)
[2024-06-04] MEDS: methylPREDNISolone sod succ 40 mg/mL INJ IVP (22:02)
--- NOTE | 2024-06-04 22:40 | ECG_ITS ---
[facility] Test Date: 2024-06-04 Pat Name: Elvin Nunn Department: Room: 251 Gender: Male Tactical Response Group Officer: : 1960 Requested By: Esmer Brooks Order Number: [id number] Tayler MD: NIVIA STEPHENS Measurements Intervals [place] Rate: 62 P: 68 NV: 289 QRS: -41 QRSD: 89 T: 65 QT: 430 QTc: 437 Interpretive Statements SINUS RHYTHM WITH FIRST DEGREE AV BLOCK LEFT AXIS DEVIATION [QRS AXIS < -30] Compared to ECG 06/04/2024 18:48:10 Left-axis deviation now present Sinus bradycardia no longer present Electronically Signed On 06-05-2024 18:57:08 CDT by NIVIA STEPHENS [email or web address].[place] Shang[employer] Technologyalliance health centerGryphon Networkseast [facility].[email or web address]/[id number]
[2024-06-04 22:53] LABS: Troponin 5 6HR 9.13 ng/L (0-15)
[2024-06-04 22:58] LABS: Troponin 5 6HR Delta -2.87 ng/L (0-12)
[2024-06-05] VITALS (17 sets, daily range): BP systolic 121–164; BP diastolic 70–91; PULSE 62–82; RESP 16–23; TEMP 36.3–36.7; O2SAT 93–98
[2024-06-05] MEDS: ipratropium-albuterol 3 mL Neb INHALATION ×5 (01:02→20:14)
[2024-06-05 04:45] LABS: Anion Gap 16.3 (5-19); Blood Urea Nitrogen 23 mg/dL (8-23); Calcium 8.4 mg/dL (8.5-10.5); Carbon Dioxide 27 mmol/L (22-29); Chloride 102 mmol/L (98-107); Creatinine Clr Calc Pharmacy 120.5078; Glucose 156 mg/dL (65-115); Osmolality Calculated 299 mOsm/kg (285-295); Potassium 4.3 mmol/L (3.5-5.1); Sodium 141 mmol/L (136-145)
[2024-06-05] MEDS: FUROsemide 10 mg/mL SDV 4mL 40 MG IVP ×2 (05:18→08:59)
[2024-06-05] MEDS: methylPREDNISolone sod succ 40 mg/mL INJ IVP ×4 (05:18→22:11)
[2024-06-05] MEDS: OLANZapine 5 mg TABLET 2.5 MG PO (09:00)
[2024-06-05] MEDS: atorvastatin 40 mg Tablet 20 MG PO (09:00)
[2024-06-05] MEDS: pantoprazole DR 40 mg Tablet PO (09:00)
[2024-06-05] MEDS: metoprolol tartrate 25 mg Tablet 12.5 MG PO ×2 (09:00→20:30)
[2024-06-05] MEDS: montelukast sodium 10 mg Tablet PO (09:00)
[2024-06-05] MEDS: gabapentin 300 mg Capsule PO ×3 (09:00→20:30)
[2024-06-05] MEDS: citalopram 20 mg Tablet 40 MG PO (09:00)
[2024-06-05] MEDS: budesonide 0.5 mg/2 mL Neb INHALATION ×2 (09:21→20:14)
--- NOTE | 2024-06-05 15:22 | PM.PN ---
Subjective Subjective: Patient endorses persistent shortness of breath and chest tightness. Endorses associated cough. Describes cough is nonproductive. Reports continued lower extremity swelling. Notified by RT this morning that patient is very tight and breathing treatments were adjusted. Medications: Reviewed: Yes Vitals/I&O/Wt Last Vital Signs Temp 97.8 F 06/05/24 15:19 Pulse 69 06/05/24 15:19 Resp 17 06/05/24 15:19 BP 145/72 06/05/24 15:19 Pulse Ox 97 06/05/24 15:19 O2 Del Method Nasal Cannula 06/05/24 15:19 O2 Flow Rate 4 06/05/24 15:00 06/05/24 06/05/24 06/05/24 06:59 14:59 22:59 Intake Total 150 / 500 1200 / 1200 Output Total 1600 / 1600 Balance 150 / 500 -400 / -400 Weight last 48 hrs Weight 128.775 kg Weight 128.548 kg Weight 95.254 kg Physical Exam Narrative: General: Patient is awake. Head: Normocephalic. Atraumatic. EOM intact. Neck: No JVD. Cardiovascular: RRR. No gallops. No murmurs. 2+ pitting edema in bilateral lower extremities minimally changed from prior exam. Lungs: Moderate air movement. Faint end expiratory wheeze. Persistent rhonchi in right lung. On nasal cannula support. Skin: No jaundice. No rashes. Abdomen: Normal bowel sounds, abdomen soft and nontender. Genito Urinary: Genital exam not performed since complaints not related. Rectal: Rectal exam not performed since no symptoms indicated blood loss. Extremities: No cyanosis or clubbing. Musculoskeletal: No erythematous joints. Neurological: Moves all 4 extremities. No myoclonus. Data 06/04/24 17:06 06/05/24 03:48 Micro: Microbiology 06/04/24 23:20 Bacterial Antigens - Final Urine,Voided 06/04/24 17:08 Blood Culture - Preliminary Blood SPECIMEN COLLECTED 06/04/24 17:06 Blood Culture - Preliminary Blood SPECIMEN COLLECTED A&P Assessment and plan (1) Asthma-COPD overlap syndrome: Acute asthma/COPD with exacerbation Chronic hypoxic respiratory failure Continue IV Solu-Medrol Continue Pulmicort Schedule breathing treatments Encourage pulmonary toilet Continue respiratory support (2) Pneumonia: Right sided community-acquired pneumonia Continue Levaquin (06/04-present) Consider sputum culture if cough becomes productive (3) Congestive heart failure: Acute on chronic heart failure with preserved ejection fraction Continue Lasix 40 mg daily Continue chronic beta-kathryn Telemetry monitoring Monitor labs (4) Major depressive disorder, recurrent episode, severe, with psychosis: Continue home Celexa (5) Mixed dyslipidemia: Continue home statin (6) GERD (gastroesophageal reflux disease): Continue home PPI Qualifiers: Esophagitis presence: without esophagitis Qualified Code(s): K21.9 - Gastro-esophageal reflux disease without esophagitis Plan DVT prophylaxis: Lovenox Attestations Medical Necessity Statement*: Patient requires ongoing hospitalization for IV steroids, IV antibiotics, IV diuresis, breathing treatments, and supportive care. Coding Level of Care Code Acute Code for [facility] Diagnoses Asthma-COPD overlap syndrome J44.9 Pneumonia J18.9 Congestive heart failure I50.9 Major depressive disorder, recurrent episode, severe, with psychosis F33.3 Mixed dyslipidemia E78.2 Gastroesophageal reflux disease without esophagitis K21.9 Esophagitis presence: without esophagitis
[2024-06-05] MEDS: primidone 50 mg Tablet 100 MG PO (20:29)
[2024-06-05] MEDS: enoxaparin 40 mg/0.4 mL Syringe SUBCUT (20:30)
[2024-06-05] MEDS: levofloxacin-dextrose 5 % 750 MG/150 ML PREMIX 100 MG IV (20:30)
[2024-06-06] VITALS (13 sets, daily range): BP systolic 118–150; BP diastolic 75–83; PULSE 60–83; RESP 16–20; TEMP 35.9–36.7; O2SAT 90–96
[2024-06-06] MEDS: ipratropium-albuterol 3 mL Neb INHALATION ×6 (00:08→20:32)
[2024-06-06] MEDS: methylPREDNISolone sod succ 40 mg/mL INJ IVP ×3 (04:10→20:12)
[2024-06-06 04:59] LABS: Albumin Level 3.8 g/dL (3.5-5.2); Anion Gap 12.6 (5-19); Blood Urea Nitrogen 24 mg/dL (8-23); Calcium 8.9 mg/dL (8.5-10.5); Carbon Dioxide 34 mmol/L (22-29); Chloride 97 mmol/L (98-107); Creatinine Clr Calc Pharmacy 119.7755; Glucose 149 mg/dL (65-115); Phosphorus 3.3 mg/dL (2.5-4.5); Potassium 3.6 mmol/L (3.5-5.1); Sodium 140 mmol/L (136-145)
[2024-06-06] MEDS: cetylpyridinium Lozenge 1 EACH MUCOUS MEM (06:11)
[2024-06-06] MEDS: budesonide 0.5 mg/2 mL Neb INHALATION ×2 (08:25→20:32)
[2024-06-06] MEDS: metoprolol tartrate 25 mg Tablet 12.5 MG PO ×2 (08:57→20:11)
[2024-06-06] MEDS: pantoprazole DR 40 mg Tablet PO (08:57)
[2024-06-06] MEDS: OLANZapine 5 mg TABLET 2.5 MG PO (08:57)
[2024-06-06] MEDS: montelukast sodium 10 mg Tablet PO (08:58)
[2024-06-06] MEDS: atorvastatin 40 mg Tablet 20 MG PO (08:58)
[2024-06-06] MEDS: FUROsemide 10 mg/mL SDV 4mL 40 MG IVP (08:58)
[2024-06-06] MEDS: citalopram 20 mg Tablet 40 MG PO (08:58)
[2024-06-06] MEDS: gabapentin 300 mg Capsule PO ×3 (08:58→20:13)
--- NOTE | 2024-06-06 09:59 | PC.CHAP ---
Pastoral Care Encounter/Spiritual Assessment Type of Contact [] Declined stock lifter visit [] Patient/Family/Request visit [] Outpatient visit [] Follow-up visit [] Physician referral [] Code/Alert [x] Routine visit [] Staff referral [] Actively dying [] Patient sleeping [] Family support [] [] Out of room [] Palliative care [] [] Receiving care in room [] Pre-surgical visit [] Trauma [] Long length of stay [] ICU visit [] Other: Relational/Emotional Strength [] Patient feels connected with others/family/visitors/staff [] Distress [] Loneliness/isolation [] Abandonment Spirituality of Patient [x] Person of Tova [] Attends Roman Catholic of their Tova [x] Believes in Prayer [] Reads Bible or Rastafari materials [] There are Spiritual issues to be addressed Milieu Therapist 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 [x] Prayer [x] Active listening [] Non-anxious presence [] Spiritual/emotional support [] Crisis/trauma care [] Spiritual counseling [] Bereavement support [] Provided bereavement packet [x] Provided Bible/devotional materials [] Provided toy/stuffed animal, coloring book to patient or family member [] Provided Communion [] Anointing/[place] [] Salvation [x] Completed spiritual assessment [] Other: Impact on Illness or Injury [] Angry [] Fearful [] Anxious [] Often cries [] Exhaustion [] Unable to work [] Unable to attend presybeterian [] Unable to walk/stand [] Unable to read [] Unable to drive [] Unable to eat/drink [] Unable to sleep [] Unable to be with family [] Patient intubated [] Other: Summary Time spent with patient 10 min
[2024-06-06 10:15] LABS: ABG PCO2 49.2 mmHg (35-45); ABG PH Result 7.43 (7.35-7.45); Alveolar-Arterial Oxygen Gradi 16.6 mmHg (5-10); Base Excess ABG 7.4 mmol/L (-2.0-2.0); Blood Gas Allen Test Pos; Blood Gas Operator Identificat AMH; Blood Gas Sample Site Radial, right; Blood Gas Sample Type Arterial; HGB O2 Sat 93.5 % (95-100); Ionized Calcium Level - ABG 1.2 mmol/L (1.1-1.4); Methemoglobin 1.1 % (0.4-1.5); Oxygen Device NC; Oxygen Saturation ABG 95.5; PO2 ABG 70.7 mmHg (80.0-100.0); PO2 FiO2 Ratio Arterial Blood 196; Total Hemoglobin 12.7 g/dL (14-18)
--- NOTE | 2024-06-06 11:07 | P.PN_ITS ---
Subjective 2 Subjective: Seen this morning. Patient is at baseline oxygen however feels short of breath. Breathing with pursed lips at this time. He states he has been to the emergency room twice in the last 2 weeks and this time when he showed up he ended up getting admitted. Vitals/I&O/Wt Last Vital Signs Temp 96.6 F L 06/06/24 07:43 Pulse 83 06/06/24 08:25 Resp 18 06/06/24 08:25 BP 138/76 06/06/24 07:43 Pulse Ox 94 06/06/24 08:25 O2 Del Method Nasal Cannula 06/06/24 08:25 O2 Flow Rate 4 06/06/24 08:25 06/05/24 06/06/24 06/06/24 22:59 06:59 14:59 Intake Total 630 / 1830 300 / 2130 240 / 240 Output Total 750 / 2350 600 / 2950 Balance -120 / -520 -300 / -820 240 / 240 Weight last 48 hrs Weight 127.369 kg Weight 128.775 kg Weight 128.548 kg Weight 95.254 kg Physical Exam 2 Narrative: on 4L NC No extremity edema present Nonfocal neuroexam Currently on BiPAP Mild cognitive impairment No new focal deficit S1, S2 Blood pressure stable Abdomen soft nontender. Urinary Catheter Management: Nguyen: Cath Placed During This Visit: yes Reason for Continuing Indwelling Catheter: Accurate Measurement of Urinary Output in Critically Ill Patients Urinary Catheter Date of Insertion: 03/26/24 Urinary Catheter Time of Insertion: 17:25 Data 06/04/24 17:06 06/06/24 03:55 Micro: Microbiology 06/04/24 17:08 Blood Culture - Preliminary Blood NEGATIVE TO DATE 06/04/24 17:06 Blood Culture - Preliminary Blood NEGATIVE TO DATE 06/04/24 23:20 Bacterial Antigens - Final Urine,Voided A&P Assessment and plan (1) Asthma-COPD overlap syndrome: Acute asthma/COPD with exacerbation Chronic hypoxic respiratory failure Continue IV Solu-Medrol Continue Pulmicort Schedule breathing treatments Encourage pulmonary toilet Continue respiratory support (2) Pneumonia: Right sided community-acquired pneumonia Continue Levaquin (06/04-present) Consider sputum culture if cough becomes productive (3) Congestive heart failure: Acute on chronic heart failure with preserved ejection fraction Continue Lasix 40 mg daily Continue chronic beta-kathryn Telemetry monitoring Monitor labs (4) Major depressive disorder, recurrent episode, severe, with psychosis: Continue home Celexa (5) Mixed dyslipidemia: Continue home statin (6) GERD (gastroesophageal reflux disease): Continue home PPI Qualifiers: Esophagitis presence: without esophagitis Qualified Code(s): K21.9 - Gastro-esophageal reflux disease without esophagitis Plan DVT prophylaxis: Lovenox 06/06 Continue Solu-Medrol 40 every 8 hours DuoNeb every 6 hours scheduled Continue Pulmicort twice daily inhalation Continue Levaquin daily. Patient will most likely need to stay in hospital for another 48 to 72 hours based on his clinical condition at this time. Patient's oxygenation and breathing status is not back to his baseline. I am quite familiar with this patient and have taken care of him before. Attestations 2 Medical Necessity Statement*: Requires continued hospitalization for treatment of pneumonia, COPD exacerbation. Oxygenation is and breathing not back to baseline. Diagnoses Asthma-COPD overlap syndrome J44.9 Pneumonia J18.9 Congestive heart failure I50.9 Major depressive disorder, recurrent episode, severe, with psychosis F33.3 Mixed dyslipidemia E78.2 Gastroesophageal reflux disease without esophagitis K21.9 Esophagitis presence: without esophagitis
--- NOTE | 2024-06-06 15:08 | PC.SOCIAL ---
IMM UPDATED IMM dated and initialed, Copy given to patient and copy placed in chart.
[2024-06-06] MEDS: primidone 50 mg Tablet 100 MG PO (20:12)
[2024-06-06] MEDS: enoxaparin 40 mg/0.4 mL Syringe SUBCUT (20:13)
[2024-06-06] MEDS: levofloxacin-dextrose 5 % 750 MG/150 ML PREMIX 100 MG IV (20:24)
[2024-06-07] VITALS (18 sets, daily range): BP systolic 112–155; BP diastolic 72–97; PULSE 62–88; RESP 16–20; TEMP 36.5–37; O2SAT 92–96
[2024-06-07] MEDS: ipratropium-albuterol 3 mL Neb INHALATION ×6 (00:08→20:53)
[2024-06-07] MEDS: methylPREDNISolone sod succ 40 mg/mL INJ IVP ×3 (03:18→19:08)
[2024-06-07] MEDS: acetaminophen 325 mg Tablet 650 MG PO (04:30)
[2024-06-07 04:35] LABS: Basophils % 0.1 %; Lymphocytes # 0.9 10^3/uL (0.8-4.8); Lymphocytes % 5.6 %; Mean Corpuscular HGB Conc 30.5 g/dL (30-55); Mean Corpuscular Hemoglobin 27.6 pg (27-33); Mean Corpuscular Volume 90.5 fl (82-101); Mean Platelet Volume 10.2 fL (7.4-10.4); Monocytes # 1.1 10^3/uL (0.2-0.9); Monocytes % 6.8 %; Neutrophils # 13.95 10^3/uL (1.8-7.7); Neutrophils % 86.8 %; Nucleated Red Blood Cells % 0 %; Platelet Count 212 10^3/cmm (157-399); Red Blood Count 4.42 10^6/uL (3.85-5.65); Red Cell Distribution Width 14.9 % (12.1-15.1); White Blood Count 16.08 10^3/uL (3.29-11.43)
[2024-06-07 04:55] LABS: Anion Gap 12.8 (5-19); Blood Urea Nitrogen 24 mg/dL (8-23); Calcium 8.5 mg/dL (8.5-10.5); Carbon Dioxide 32 mmol/L (22-29); Chloride 97 mmol/L (98-107); Creatinine Clr Calc Pharmacy 106.4671; Glomerular Filtration Rate 84.7 mL/min (90-130); Glucose 148 mg/dL (65-115); Magnesium 2.1 mg/dL (1.7-2.3); Osmolality Calculated 293 mOsm/kg (285-295); Potassium 3.8 mmol/L (3.5-5.1); Sodium 138 mmol/L (136-145)
[2024-06-07] MEDS: FUROsemide 10 mg/mL SDV 4mL 40 MG IVP (09:12)
[2024-06-07] MEDS: metoprolol tartrate 25 mg Tablet 12.5 MG PO ×2 (09:17→19:38)
[2024-06-07] MEDS: gabapentin 300 mg Capsule PO ×3 (09:18→19:39)
[2024-06-07] MEDS: atorvastatin 40 mg Tablet 20 MG PO (09:19)
[2024-06-07] MEDS: citalopram 20 mg Tablet 40 MG PO (09:20)
[2024-06-07] MEDS: montelukast sodium 10 mg Tablet PO (09:21)
[2024-06-07] MEDS: OLANZapine 5 mg TABLET 2.5 MG PO (09:24)
[2024-06-07] MEDS: pantoprazole DR 40 mg Tablet PO (09:24)
[2024-06-07] MEDS: budesonide 0.5 mg/2 mL Neb INHALATION ×2 (09:32→20:53)
--- NOTE | 2024-06-07 14:07 | P.PN_ITS ---
Subjective 2 Subjective: seen today feeling better today reports sob while ambulating to bathroom however it is reported by nursing staff that pt does not wear his NC when going to bathroom Vitals/I&O/Wt Last Vital Signs Temp 98.2 F 06/07/24 11:16 Pulse 75 06/07/24 11:50 Resp 16 06/07/24 11:47 BP 117/75 06/07/24 11:16 Pulse Ox 93 06/07/24 11:47 O2 Del Method Nasal Cannula 06/07/24 11:47 O2 Flow Rate 3.5 06/07/24 11:47 06/06/24 06/07/24 06/07/24 22:59 06:59 14:59 Intake Total 1150 / 1870 480 / 2350 120 / 120 Output Total 500 / 1225 Balance 1150 / 1145 -20 / 1125 120 / 120 Weight last 48 hrs Weight 128.185 kg Weight 127.369 kg Physical Exam 2 Narrative: on 3L NC No extremity edema present Nonfocal neuroexam Currently on NC 3L Mild cognitive impairment No new focal deficit S1, S2 Blood pressure stable Abdomen soft nontender. Urinary Catheter Management: Nguyen: Cath Placed During This Visit: yes Reason for Continuing Indwelling Catheter: Accurate Measurement of Urinary Output in Critically Ill Patients Urinary Catheter Date of Insertion: 03/26/24 Urinary Catheter Time of Insertion: 17:25 Data 06/07/24 04:28 06/07/24 04:28 A&P Assessment and plan (1) Asthma-COPD overlap syndrome: Acute asthma/COPD with exacerbation Chronic hypoxic respiratory failure Continue IV Solu-Medrol Continue Pulmicort Schedule breathing treatments Encourage pulmonary toilet Continue respiratory support (2) Pneumonia: Right sided community-acquired pneumonia Continue Levaquin (06/04-present) Consider sputum culture if cough becomes productive (3) Congestive heart failure: Acute on chronic heart failure with preserved ejection fraction Continue Lasix 40 mg daily Continue chronic beta-kathryn Telemetry monitoring Monitor labs (4) Major depressive disorder, recurrent episode, severe, with psychosis: Continue home Celexa (5) Mixed dyslipidemia: Continue home statin (6) GERD (gastroesophageal reflux disease): Continue home PPI Qualifiers: Esophagitis presence: without esophagitis Qualified Code(s): K21.9 - Gastro-esophageal reflux disease without esophagitis Plan DVT prophylaxis: Lovenox 06/07 Continue Solu-Medrol 40 every 12 hours DuoNeb every 6 hours scheduled Continue Pulmicort twice daily inhalation Continue Levaquin daily. plan for dc in am if continued improvement Attestations 2 Medical Necessity Statement*: plan for dc in am, will require continued IV steroid today Diagnoses Asthma-COPD overlap syndrome J44.9 Pneumonia J18.9 Congestive heart failure I50.9 Major depressive disorder, recurrent episode, severe, with psychosis F33.3 Mixed dyslipidemia E78.2 Gastroesophageal reflux disease without esophagitis K21.9 Esophagitis presence: without esophagitis
[2024-06-07] MEDS: primidone 50 mg Tablet 100 MG PO (19:38)
[2024-06-07] MEDS: enoxaparin 40 mg/0.4 mL Syringe SUBCUT (19:39)
[2024-06-07] MEDS: levofloxacin-dextrose 5 % 750 MG/150 ML PREMIX 100 MG IV (19:39)
[2024-06-08] VITALS (10 sets, daily range): BP systolic 133–160; BP diastolic 72–83; PULSE 56–76; RESP 16–20; TEMP 36.5–36.7; O2SAT 93–98
[2024-06-08] MEDS: ipratropium-albuterol 3 mL Neb INHALATION ×4 (01:00→11:01)
[2024-06-08] MEDS: methylPREDNISolone sod succ 40 mg/mL INJ IVP (02:24)
[2024-06-08 05:09] LABS: Basophils % 0.2 %; Hematocrit 38.5 % (37-53); Lymphocytes # 0.8 10^3/uL (0.8-4.8); Mean Corpuscular HGB Conc 30.9 g/dL (30-55); Mean Corpuscular Hemoglobin 28.2 pg (27-33); Mean Corpuscular Volume 91.2 fl (82-101); Mean Platelet Volume 11.1 fL (7.4-10.4); Monocytes # 1.3 10^3/uL (0.2-0.9); Monocytes % 9.5 %; Neutrophils # 10.99 10^3/uL (1.8-7.7); Neutrophils % 83.5 %; Nucleated Red Blood Cells % 0 %; Platelet Count 195 10^3/cmm (157-399); Red Blood Count 4.22 10^6/uL (3.85-5.65); White Blood Count 13.16 10^3/uL (3.29-11.43)
[2024-06-08 05:34] LABS: Anion Gap 8.9 (5-19); Blood Urea Nitrogen 27 mg/dL (8-23); Calcium 8.4 mg/dL (8.5-10.5); Carbon Dioxide 35 mmol/L (22-29); Chloride 98 mmol/L (98-107); Creatinine Clr Calc Pharmacy 120.2005; Glucose 141 mg/dL (65-115); Magnesium 2.4 mg/dL (1.7-2.3); Osmolality Calculated 293 mOsm/kg (285-295); Potassium 3.9 mmol/L (3.5-5.1); Sodium 138 mmol/L (136-145)
[2024-06-08] MEDS: budesonide 0.5 mg/2 mL Neb INHALATION (07:46)
[2024-06-08] MEDS: metoprolol tartrate 25 mg Tablet 12.5 MG PO (07:57)
[2024-06-08] MEDS: gabapentin 300 mg Capsule PO (07:57)
[2024-06-08] MEDS: atorvastatin 40 mg Tablet 20 MG PO (07:58)
[2024-06-08] MEDS: citalopram 20 mg Tablet 40 MG PO (07:58)
[2024-06-08] MEDS: pantoprazole DR 40 mg Tablet PO (07:58)
[2024-06-08] MEDS: OLANZapine 5 mg TABLET 2.5 MG PO (07:58)
[2024-06-08] MEDS: FUROsemide 10 mg/mL SDV 4mL 40 MG IVP (07:59)
[2024-06-08] MEDS: montelukast sodium 10 mg Tablet PO (07:59)
--- NOTE | 2024-06-08 09:47 | PC.SOCIAL ---
IMM Updated IMM dated and initialed, copy placed in chart and given to patient.
--- NOTE | 2024-06-08 11:12 | PM.DCS ---
Discharge Providers Date of Admission: 06/05/24 16:36 Date of Discharge: June 08, 2024 Attending Provider at Admission: Chriss George MD Attending Provider at Discharge: Disha Adams MD Primary Care Provider: Katherine Horner NP Diagnoses at Discharge Discharge Diagnosis (1) Asthma-COPD overlap syndrome: Status: Acute (2) Pneumonia: Status: Acute (3) Congestive heart failure: Status: Acute (4) Major depressive disorder, recurrent episode, severe, with psychosis: Status: Acute (5) Mixed dyslipidemia: Status: Acute (6) GERD (gastroesophageal reflux disease): Status: Chronic Qualifiers: Esophagitis presence: without esophagitis Qualified Code(s): K21.9 - Gastro-esophageal reflux disease without esophagitis Reason for Visit Reason for Visit: sob Hospital Course Hospital Course Patient was admitted for COPD exacerbation with possible pneumonia. He was treated with steroids and antibiotics. Discharged home on levofloxacin for another 4 days along with a prednisone taper. He felt he was back to baseline. Physical Exam Narrative: on 2L NC No extremity edema present Nonfocal neuroexam Currently on NC 2L Mild cognitive impairment No new focal deficit S1, S2 Blood pressure stable Abdomen soft nontender. Urinary Catheter Management: Nguyen: Cath Placed During This Visit: yes Reason for Continuing Indwelling Catheter: Accurate Measurement of Urinary Output in Critically Ill Patients Urinary Catheter Date of Insertion: 03/26/24 Urinary Catheter Time of Insertion: 17:25 Discharge Data Studies Completed and Pending Completed Studies During Hospitalization Category Date Time Status XR chest 1V portable [id number] Stat Exams 06/04/24 16:40 Completed Pending at discharge Category Date Time Status Blood Culture Stat Lab 06/04/24 17:08 Results Radiology Impressions Chest X-Ray 06/04/24 16:40 IMPRESSION: 1. Mid lung hazy opacities on the right suspicious for developing bronchopneumonia in the proper clinical setting. Laboratory Results WBC 13.16 10^3/uL (3.29-11.43) H 06/08/24 04:34 RBC 4.22 10^6/uL (3.85-5.65) 06/08/24 04:34 Hgb 11.90 g/dL (11.27-16.99) 06/08/24 04:34 Hct 38.5 % (37-53) 06/08/24 04:34 MCV 91.2 fl (82-101) 06/08/24 04:34 MCH 28.2 pg (27-33) 06/08/24 04:34 MCHC 30.9 g/dL (30-55) 06/08/24 04:34 RDW 15.0 % (12.1-15.1) 06/08/24 04:34 Plt Count 195 10^3/cmm (157-399) 06/08/24 04:34 MPV 11.1 fL (7.4-10.4) H 06/08/24 04:34 Neut % (Auto) 83.5 % 06/08/24 04:34 Lymph % (Auto) 6.0 % 06/08/24 04:34 Gallia % (Auto) 9.5 % 06/08/24 04:34 Eos % (Auto) 0.0 % 06/08/24 04:34 Baso % (Auto) 0.2 % 06/08/24 04:34 Neut # (Auto) 10.99 10^3/uL (1.8-7.7) H 06/08/24 04:34 Lymph # (Auto) 0.8 10^3/uL (0.8-4.8) 06/08/24 04:34 [place] # (Auto) 1.3 10^3/uL (0.2-0.9) H 06/08/24 04:34 Eos # (Auto) 0.0 10^3/uL (0.0-0.8) 06/08/24 04:34 Baso # (Auto) 0.0 10^3/uL (0.0-0.1) 06/08/24 04:34 Nucleated RBC % (auto) 0 % 06/08/24 04:34 Nucleated RBCs # 0.0 /100WBC 06/08/24 04:34 Specimen Type Arterial 06/06/24 10:04 Sample Site Radial, right 06/06/24 10:04 ABG pH 7.43 (7.35-7.45) 06/06/24 10:04 ABG pCO2 49.2 mmHg (35-45) H 06/06/24 10:04 ABG pO2 70.7 mmHg (80.0-100.0) L 06/06/24 10:04 ABG PO2/FiO2 Ratio 196 06/06/24 10:04 ABG HCO3 33.0 mmol/L (22-26) H 06/06/24 10:04 ABG O2 Saturation 95.5 06/06/24 10:04 ABG Base Excess 7.4 mmol/L (-2.0-2.0) H 06/06/24 10:04 Wilmer Test Pos 06/06/24 10:04 A-a O2 Gradient 16.6 mmHg (5-10) H 06/06/24 10:04 Hematocrit 39.0 % (42-52) L 06/06/24 10:04 Hgb O2 Saturation 93.5 % (95-100) L 06/06/24 10:04 Carboxyhemoglobin 1.0 %THgb (0.4-20.1) 06/06/24 10:04 Methemoglobin 1.1 % (0.4-1.5) 06/06/24 10:04 Total Hemoglobin 12.7 g/dL (14-18) L 06/06/24 10:04 Sodium 137.0 mmol/L (131-143) 06/06/24 10:04 Potassium 3.0 mmol/L (3.5-5.0) L 06/06/24 10:04 Glucose 238.0 mg/dL (70-115) H 06/06/24 10:04 Ionized Calcium 1.2 mmol/L (1.1-1.4) 06/06/24 10:04 O2 Delivery Device Nc 06/06/24 10:04 O2 Liters/Min 4.0 % 06/06/24 10:04 FiO2 36.0 % 06/06/24 10:04 Water Pollution Control Technician ID Amh 06/06/24 10:04 Sodium 138 mmol/L (136-145) 06/08/24 04:34 Potassium 3.9 mmol/L (3.5-5.1) 06/08/24 04:34 Chloride 98 mmol/L (98-107) 06/08/24 04:34 Carbon Dioxide 35 mmol/L (22-29) H 06/08/24 04:34 Anion Gap 8.9 (5-19) 06/08/24 04:34 BUN 27 mg/dL (8-23) H 06/08/24 04:34 Creatinine 0.8 mg/dL (0.7-1.2) 06/08/24 04:34 GFR Calculation 97.0 mL/min (90-130) 06/08/24 04:34 Glucose 141 mg/dL (65-115) H 06/08/24 04:34 Calculated Osmolality 293 mOsm/kg (285-295) 06/08/24 04:34 Lactic Acid 1.0 mmol/L (0.5-2.2) 06/04/24 17:06 Calcium 8.4 mg/dL (8.5-10.5) L 06/08/24 04:34 Phosphorus 3.3 mg/dL (2.5-4.5) 06/06/24 03:55 Magnesium 2.4 mg/dL (1.7-2.3) H 06/08/24 04:34 Total Bilirubin 0.2 mg/dL (0.15-1.2) 06/04/24 17:06 AST 17 U/L (0-40) 06/04/24 17:06 ALT 28 U/L (0-41) 06/04/24 17:06 Alkaline Phosphatase 100 U/L (40-130) 06/04/24 17:06 Troponin T Baseline 12 ng/L (0-15) 06/04/24 17:06 Troponin T 120 Minute 12.09 ng/L (0-15) 06/04/24 19:07 Delta Troponin T 0.09 ABS# (0-10) 06/04/24 19:07 Troponin T Hi Sens 6Hr 9.13 ng/L (0-15) 06/04/24 22:29 Troponin T Hi Sens 6Hr Delta -2.87 ng/L (0-12) L 06/04/24 22:29 C-Reactive Protein 11.5 mg/L (0.0-4.9) H 06/04/24 17:06 NT-Pro-B Natriuret Pep 220 pg/mL (0-125) H 06/04/24 17:06 Total Protein 6.0 g/dL (6.6-8.7) L 06/04/24 17:06 Albumin 3.8 g/dL (3.5-5.2) 06/06/24 03:55 Globulin 2.3 g/dL (1.3-4.6) 06/04/24 17:06 Procalcitonin 0.04 ng/mL (0-0.5) 06/04/24 19:07 Coronavirus (PCR) Negative (Negative) 06/04/24 17:07 Influenza A (PCR) Negative (Negative) 06/04/24 17:07 Influenza Type B (PCR) Negative (Negative) 06/04/24 17:07 RSV (PCR) Negative (Negative) 06/04/24 17:07 Vitals Last Vital Signs Temp 97.7 F 06/08/24 07:40 Pulse 66 06/08/24 11:03 Resp 20 H 06/08/24 11:03 BP 160/72 06/08/24 07:40 Pulse Ox 98 06/08/24 11:03 O2 Del Method Nasal Cannula 06/08/24 11:03 O2 Flow Rate 3 06/08/24 11:03 FiO2 4 06/08/24 05:00 Discharge Plan Discharge Patient Disposition: Home Condition: Stable Prescriptions: New prednisone 10 mg tablet See Rx Instructions .ROUTE .COMPLEX Qty: 30 0RF Rx Instructions: 40 mg daily x3d 20 mg daily x3d 10 mg daily x3d 5 mg daily thereafter levofloxacin 750 mg tablet 750 mg PO DAILY 4 Days Qty: 4 0RF Continued (DME) wheelchair See Rx Instructions .Route .MEDSUPPLY Qty: 1 0RF Rx Instructions: As directed ([facility] [place]) hsopital bed See Rx Instructions .Route .MEDSUPPLY Qty: 1 0RF Rx Instructions: As directed olanzapine [Zyprexa] 2.5 mg tablet 2.5 mg PO DAILY Qty: 90 1RF primidone 50 mg tablet 100 mg PO BEDTIME levalbuterol tartrate 45 mcg/actuation HFA aerosol inhaler 2 inh inhalation Q6H PRN (Reason: shortness of breath or wheezing) Qty: 15 5RF (DME) A7005 Nebulizer Set See Rx Instructions .Route .MEDSUPPLY Qty: 1 0RF Rx Instructions: As directed nitroglycerin 0.4 mg tablet, sublingual See Rx Instructions .ROUTE .COMPLEX Qty: 25 0RF Dose Instruction: DISSOLVE ONE TABLET UNDER THE TONGUE EVERY 5 MINUTES NEEDED FOR CHEST PAIN. DO NOT EXCEED A TOTAL OF 3 DOSES IN 15 MINUTES Rx Instructions: DISSOLVE ONE TABLET UNDER THE TONGUE EVERY 5 MINUTES NEEDED FOR CHEST PAIN. DO NOT EXCEED A TOTAL OF 3 DOSES IN 15 MINUTES Tezspire 210 mg/1.91 mL (110 mg/mL) pen injector 210 mg SUBCUT .Q 4 weeks Qty: 1.91 11RF montelukast 10 mg tablet 10 mg PO DAILY Qty: 30 1RF citalopram 40 mg tablet 40 mg PO DAILY Qty: 30 0RF gabapentin 300 mg capsule See Rx Instructions .ROUTE .COMPLEX Qty: 90 0RF Dose Instruction: TAKE 1 CAPSULE BY MOUTH EVERY 8 HOURS Rx Instructions: TAKE 1 CAPSULE BY MOUTH EVERY 8 HOURS pantoprazole 40 mg tablet,delayed release (DR/EC) 40 mg PO DAILY prednisone 5 mg tablet 10 mg PO DAILY PRN (Reason: asthma) Hold Instructions: Resume on 04/19/24. hold while on steroid taper atorvastatin 20 mg tablet 20 mg PO DAILY isosorbide mononitrate 30 mg tablet extended release 24 hr 60 mg PO DAILY Qty: 60 0RF metoprolol tartrate 25 mg tablet 12.5 mg PO Q12H Qty: 30 0RF ipratropium-albuterol 0.5 mg-3 mg(2.5 mg base)/3 mL Solution For Nebulization 3 ml INHALATION Q6H PRN (Reason: Shortness Of Breath Or Wheezing) guaifenesin 600 mg Tablet Extended Release 12hr 600 mg PO Q12H PRN (Reason: Congestion) Fasenra Pen 30 mg/mL auto-injector 30 mg SUBCUT .Q 8WKS Bretri Aerosphere 160-9-4.8 mcg/actuation HFA aerosol inhaler 2 inh INHALATION BID Discharge Orders: Discharge Order (Routine); Ordered 06/08/24 Ordered By: Disha Adams Referrals: Katherine Hroner NP [Primary Care Provider] - 06/13/24 2:00 pm Discharge Diet: Cardiac Discharge Activity: Resume usual activity and Oxygen as instructed Patient Instructions: COPD, Prednisone (By mouth), Levofloxacin (By mouth), Heart Failure (GEN), Pneumonia (GEN), CHF Stoplight, COPD Stoplight, Opioid Safety, Pneumonia Stoplight Discharge Attestations Time Spent in Discharge Care*: greater than 30 min Quality Metrics Clinical Quality Measures [ No reported AMI, CVA or VTE this stay] Coding Level of Care Code Acute Code for [facility] Diagnoses Asthma-COPD overlap syndrome J44.9 Pneumonia J18.9 Congestive heart failure I50.9 Major depressive disorder, recurrent episode, severe, with psychosis F33.3 Mixed dyslipidemia E78.2 Gastroesophageal reflux disease without esophagitis K21.9 Esophagitis presence: without esophagitis
--- NOTE | 2024-06-08 11:36 | PC.NURSE ---
Notified Dr. Adams of patients IV leaking. Stated not to start a new IV, patient was discharging today.
--- NOTE | 2024-06-08 14:04 | PC.NURSE ---
Went down to patient's sister at the front entrance to go over discharge orders. Patient stated sister could not come to floor. Sister had a cold upon arrival at the vehicle. Went over new medications, follow up appointments, CHF, COPD and Pneumonia Stop lights. All questions answered. Sister verbalized understanding.
== END 2024-06-08 13:59 | disposition home or self-care (01) | DRG 190 ==
LOC: ER 18:19 → MEDSURG 23:43
PROVIDERS: Admitting Provider Internal Medicine; Emergency Provider Emergency Medicine; PCP Nurse Practitioner Family; Visit Provider Internal Medicine
DX: J44.1 Chronic obstructive pulmonary disease with (acute) exacerbation (principal); I50.33 Acute on chronic diastolic (congestive) heart failure; J18.9 Pneumonia, unspecified organism; F33.3 Major depressive disorder, recurrent, severe with psychotic symptoms; J96.11 Chronic respiratory failure with hypoxia; J45.901 Unspecified asthma with (acute) exacerbation; J44.0 Chronic obstructive pulmonary disease with (acute) lower respiratory infection; K21.9 Gastro-esophageal reflux disease without esophagitis; E78.2 Mixed hyperlipidemia; Z79.899 Other long term (current) drug therapy; Z87.891 Personal history of nicotine dependence
CPT/HCPCS: 0241U; 36415; 36600; 71045; 80048; 80051; 80053; 80069; 82330; 82805; 83605; 83735; 83880; 84145; 84484; 85025; 86140; 86403; 87040; 93005; 94640; 96372; 96374; 99285; G0378; J1650; J1940; J1956; J2919; J7613; J7626

== ENCOUNTER 2024-06-11 19:26 | Inpatient (IN) | payer MEDICARE, MEDICAID, SELFPAY ==
--- NOTE | 2024-06-11 19:44 | ECG_ITS ---
[facility] Test Date: 2024-06-11 Pat Name: Elvin Nunn Department: Room: Gender: Male Luggage Attendant: : 1960 Requested By: Magdy Cowart Order Number: [id number] Tayler MD: Kedar Coyle M.D. Measurements Intervals [place] Rate: 94 P: 244 RI: 160 QRS: 0 QRSD: 0 T: 219 QT: 350 QTc: 439 Interpretive Statements SINUS RHYTHM WITH FREQUENT ECTOPIC PREMATURE COMPLEXES INDETERMINATE AXIS MODERATE ST DEPRESSION [0.05+ mV ST DEPRESSION] ABNORMAL QRS-T ANGLE [QRS-T AXIS DIFFERENCE > 60] Compared to ECG 06/04/2024 22:56:33 Indeterminate axis now present ST (T wave) deviation now present First degree AV block no longer present Left-axis deviation no longer present Electronically Signed On 06-12-2024 9:15:24 CDT by Kedar Coyle M.D. [email or web address]
--- NOTE | 2024-06-11 19:54 | XRR_ITS ---
PROCEDURE INFORMATION: Exam: XR Chest Exam date and time: 06/11/2024 8:19 PM Age: 64 years old Clinical indication: Shortness of breath; Patient HX: C/O SOB. TECHNIQUE: Imaging protocol: Radiologic exam of the chest. Views: 1 view. COMPARISON: CR (CHEST, ) 06/04/2024 5:07 PM FINDINGS: Lungs: The lung bases are suboptimally assessed due to technique however the upper lungs are clear of focal consolidation. Pleural spaces: Unremarkable. No pleural effusion. No pneumothorax. Heart/Mediastinum: Cardiac silhouette appears normal in size. No obvious vascular congestion. Bones/joints: No acute osseous findings. Other findings: Single view was submitted. XR/XR chest 1V portable [id number] IMPRESSION: No obvious acute consolidation. Suboptimal lung base assessment. Followup including lateral view may be obtained if clinically indicated. Please also refer to chest CT exam report same day.
[2024-06-11 20:06] VITALS: BP 165/84; PULSE 81; RESP 22; TEMP 36.4; O2SAT 93; BMI 42.5
[2024-06-11 20:22] LABS: Basophils % 0.2 %; Eosinophils # 0.4 10^3/uL (0.0-0.8); Eosinophils % 3.1 %; Hematocrit 40.2 % (37-53); Lymphocytes # 1.7 10^3/uL (0.8-4.8); Mean Corpuscular HGB Conc 30.8 g/dL (30-55); Mean Corpuscular Hemoglobin 27.9 pg (27-33); Mean Corpuscular Volume 90.3 fl (82-101); Mean Platelet Volume 10.5 fL (7.4-10.4); Monocytes # 1.2 10^3/uL (0.2-0.9); Monocytes % 10.5 %; Neutrophils % 69.5 %; Nucleated Red Blood Cells % 0 %; Platelet Count 178 10^3/cmm (157-399); Red Blood Count 4.45 10^6/uL (3.85-5.65); Red Cell Distribution Width 14.5 % (12.1-15.1); White Blood Count 11.22 10^3/uL (3.29-11.43)
--- NOTE | 2024-06-11 20:25 | W.ED.CHESTPA ---
Documented by User: NESTOR Allen 06/11/24 23:14 HPI - Chest Pain General: Chief Complaint: ER Hold Stated Complaint: SOB Time Seen by Provider: 06/11/24 19:53 Source: patient and EMS Mode of arrival: EMS Limitations: no limitations History of Present Illness: Patient is a 64-year-old male past medical history of CHF, COPD, and chronic hypoxemic respiratory failure who is brought into the emergency department by ambulance due to worsening of shortness of breath and chest pain that has been bothering him over the past month or so. He has been seen here in the emergency department and admitted to the hospital 3 times in the past month, recently was discharged on 06/08 due to a right lower lobe pneumonia and acute exacerbation of his respiratory failure and COPD. He also takes water pill for CHF. Meds that he was discharged on was prednisone and Levaquin, states that he has not felt better since discharge and tonight was concerned about the amount of chest pain he was having along with worsening neck and left shoulder pain. He denies to me a history of stroke or heart attack. He does use nebulized breathing treatment at home. Prior to EMS, he took a nitro and EMS reportedly gave a DuoNeb, prednisone, and another dose of nitro and patient still reporting chest pain. He is chronically on 4 L of oxygen, states he recently was up to 5 L of oxygen chronically. At this time he is noted to be 93 to 97% on 4-1/2 L. No fever, sick contacts, or other concerning historical elements to report at this time MD complaint: chest pain Pertinent past history: other (COPD, CHF, chronic hypoxemic respiratory failure, asthma) Onset (ago): month(s) Timing of current episode: constant Prior episodes: Yes Pain location: left chest Pain radiation: neck and left shoulder Quality: tightness Relieving factors: nothing Context: other (Recent hospitalizations, diagnosis of right lower lobe pneumonia) Associated symptoms: Reports dyspnea; Deny abdominal pain, fever(s), nausea, palpitations or vomiting Treatment prior to arrival: nitroglycerin, oxygen and other (Breathing treatment, prednisone) Related Data Home Medications Medication Instructions Recorded Confirmed primidone 50 mg tablet 100 mg PO BEDTIME 12/01/22 06/05/24 pantoprazole 40 mg tablet,delayed 40 mg PO DAILY 01/31/24 06/05/24 release prednisone 5 mg tablet 10 mg PO DAILY PRN asthma 03/27/24 06/05/24 atorvastatin 20 mg tablet 20 mg PO DAILY 03/29/24 06/05/24 benralizumab 30 mg/mL subcutaneous 30 mg SUBCUT .Q 8WKS 04/02/24 06/05/24 auto-injector (Fasenra Pen) budesonide 160 mcg-glycopyr 9 2 inh inhalation BID 04/02/24 06/05/24 mcg-formot 4.8 mcg/actuation HFA inhaler (Breztri Aerosphere) guaifenesin 600 mg tablet, 600 mg PO Q12H PRN Congestion 04/02/24 06/05/24 extended release 12 hr ipratropium 0.5 mg-albuterol 3 mg 3 ml inhalation Q6H PRN Shortness 04/02/24 06/05/24 (2.5 mg base)/3 mL nebulization Of Breath Or Wheezing soln Previous Rx's Medication Instructions Recorded hsopital bed #1 ea 08/28/22 wheelchair #1 ea 08/28/22 A7005 Nebulizer Set #1 ea 10/13/23 olanzapine 2.5 mg tablet (Zyprexa) 2.5 mg PO DAILY #90 tabs 11/05/23 levalbuterol tartrate 45 2 inh inhalation Q6H PRN shortness 02/09/24 mcg/actuation aerosol inhaler of breath or wheezing #15 grams nitroglycerin 0.4 mg sublingual See Rx Instructions .Route 03/16/24 tablet .COMPLEX #25 tabs tezepelumab-ekko 210 mg/1.91 mL 210 mg (1.91 mL) SUBCUT .Q 4 weeks 03/22/24 (110 mg/mL) subcutaneous pen #1.91 mL injector (Tezspire) isosorbide mononitrate 30 mg 60 mg (2 x 30 mg) PO DAILY #60 tabs 03/29/24 tablet,extended release 24 hr metoprolol tartrate 25 mg tablet 12.5 mg (1/2 x 25 mg) PO Q12H #30 03/29/24 tabs citalopram 40 mg tablet 40 mg PO DAILY #30 tabs 05/25/24 gabapentin 300 mg capsule See Rx Instructions .Route 05/25/24 .COMPLEX #90 caps montelukast 10 mg tablet 10 mg PO DAILY #30 tabs 05/25/24 levofloxacin 750 mg tablet 750 mg PO DAILY 4 days #4 tabs 06/08/24 prednisone 10 mg tablet See Rx Instructions .Route 06/08/24 .COMPLEX #30 tabs Allergies Allergy/AdvReac Type Severity Reaction Status Date / Time No Known Allergies Allergy Verified 02/19/24 08:21 Review of Systems General: Reports: 10 or more systems reviewed and unremarkable except in HPI and below Const: Denies: fever(s), chills or fatigue Eyes: Denies: change in vision ENMT: Denies: throat pain, ear or mastoid pain or nasal discharge Card: Reports: chest pain; Denies: palpitations, swelling of feet/ankles or lightheadedness Resp: Reports: dyspnea; Denies: productive cough or wheezing GI: Denies: abdominal pain, nausea, vomiting, diarrhea or constipation : Denies: flank pain, difficulty urinating, dysuria or urinary frequency Musc: Reports: neck pain and joint pain (Left shoulder); Denies: back pain Skin/Breast: Denies: rash Neuro: Denies: headache(s), numbness in extremities or weakness in extremities PFSH ED PFSH: Medical History (Updated 06/11/24 @ 23:32 by Tyler Mari MD) CHF exacerbation Chronic hypoxemic respiratory failure Acute on chronic hypoxic respiratory failure Sleep walking Asthma-COPD overlap syndrome Degenerative lumbar disc History of compression fracture of spine Left leg DVT 07/2022 Cognitive impairment GERD (gastroesophageal reflux disease) Tremor Chronic neck pain Pulmonary emphysema with fibrosis of lung Surgical History History of cataract extraction bilateral History of tonsillectomy Hx of appendectomy Family History Other Dementia Stroke Denies family history of Diabetes CAD (coronary artery disease) Clotting disorder Hyperlipidemia Psychiatric illness Chronic kidney disease (CKD) Suicide Anesthesia complication Bleeding disorder Family history of premature coronary artery disease Lung disease Cancer Hypertension Social History Smoking and tobacco/nicotine status: former use of tobacco/nicotine Quit status (tobacco/nicotine): has quit using Year quit tobacco: 2017 Former quit date comment: 1pack per month x 2 years Second hand smoke exposure: No Alcohol intake: never Substance/Drug Use: never Physical Exam Const: COMMON NORMALS: patient oriented x3 and no limitations GENERAL APPEARANCE: cooperative and well developed NUTRITIONAL APPEARANCE: obese morbidly obese ORIENTATION/CONSCIOUSNESS: Yes awake, Yes oriented to person, Yes oriented to place and Yes oriented to time OTHER: Mild respiratory distress noted, patient appears disheveled HENMT: COMMON NORMALS: normocephalic, atraumatic and hearing grossly normal bilaterally HEAD & SCALP: normocephalic and atraumatic OTHER: Dry oral mucosa Eye: COMMON NORMALS: Equal, round and reactive pupils present, EOMs intact bilaterally and conjunctivae normal CONJUNCTIVA: Yes conjunctivae normal PUPIL: Yes Equal, round and reactive pupils present Neck/C-Spine: COMMON NORMALS: full ROM, supple and no JVD Chest: COMMONS NORMALS: normal inspection of the chest Resp: COMMON NORMALS: No retractions and No use of accessory muscles EFFORT & INSPECTION: Yes tachypneic and Yes audible wheezes OTHER: Distant breath sounds Cardio: COMMON NORMALS: no JVD, regular rate, regular rhythm, No clicks present (Cardio), No murmurs present (Cardio) and No rub (Cardio) RATE: regular rate RHYTHM: regular rhythm OTHER: Distant heart sounds GI: COMMON NORMALS: Soft to palpation and non-tender INSPECTION: Yes abdominal distension and Yes central obesity AUSCULTATION: Yes normoactive bowel sounds PALPATION: Yes Soft to palpation RECTAL EXAM: Yes deferred Extremity: COMMON NORMALS: normal to inspection, full ROM and capillary refill normal Neuro: COMMON NORMALS: patient oriented x3, CN's II-XII intact bilaterally, moves all extremities, no focal motor deficits and no sensory deficits noted SENSORIUM/ORIENTATION: Yes oriented to person, Yes oriented to place and Yes oriented to time Skin: COMMON NORMALS: no rashes or lesions noted GENERAL SKIN EXAM: no rashes or lesions noted Course Vital Signs: Vital signs: Vital Signs Temperature 97.5 F L 06/11/24 20:06 Pulse Rate 69 06/12/24 12:00 Respiratory Rate 22 H 06/12/24 12:00 Blood Pressure 126/85 06/12/24 12:00 Pulse Oximetry 94 06/12/24 12:00 Oxygen Delivery Me thod Nasal Cannula 06/12/24 12:00 Oxygen Flow Rate 3 06/12/24 12:00 MDM - Chest Pain Medical Decision Making Patient presented by ambulance for shortness of breath, was discharged on 06/08 for exacerbation of COPD along with complications of chronic hypoxemic respiratory failure and congestive heart failure. He was discharged on Levaquin and prednisone. He does have a nebulizer butyryl treatments at home, prior to calling ambulance took a nitro and EMS also gave nitro as well as DuoNeb and prednisone. He did arrive mildly tachypneic with distant lung and heart sounds, though these were likely secondary to body habitus. There was no appreciable wheezing or rhonchi. He is chronically on 4 L of oxygen, has maintained 3 L of oxygen here 93 to 97%. Labs obtained include an unremarkable CBC, CMP, baseline BNP, baseline ABG, unremarkable urinalysis, and negative troponin. Initial EKG showed some signs of ST depression that does seem to be new from prior, this was reviewed with Dr. Ca. A chest x-ray obtained did not show any signs of consolidation, and a chest CT further clarified that there was no signs of a pneumonia or other consolidation. Rechecked patient states he feels better after receiving a DuoNeb here in the emergency department along with Solu-Medrol. He does have appointment with pulmonology in a few weeks with Dr. Fortune. I spoke with hospitalist, Dr. Mari, who agrees to accept the patient to the [facility] [place]. Discussed this patient's case with Dr. Bass who will put in admit orders at this time. Lab Data 06/12/24 05:37 06/12/24 05:37 Radiology Impressions Chest X-Ray 06/11/24 19:54 IMPRESSION: No obvious acute consolidation. Suboptimal lung base assessment. Followup including lateral view may be obtained if clinically indicated. Please also refer to chest CT exam report same day. Chest CT 06/11/24 21:01 IMPRESSION: 1. No acute lung consolidation or ground-glass opacity. Multiple tiny linear opacity suggesting atelectasis-scarring. 2. Right upper lobe nodular density measuring 2-3 mm.For patients at low risk (minimal or absent history of smoking and of other known risk factors), no routine follow-up is indicated. For patients at high risk (history of smoking or of other known risk factors), consider optional CT Chest at 12 months. (Reference: Gypsy) 3. Coronary calcification and other nonacute findings as described. REFERENCES: Gypsy Cutler, et al. Guidelines for Management of Incidental Pulmonary Nodules Detected on CT Images: From the Fleischner Society 2017. Radiology. 2017;284(1):228-243. Laboratory Results WBC 11.22 10^3/uL (3.29-11.43) 06/11/24 20:07 RBC 4.45 10^6/uL (3.85-5.65) 06/11/24 20:07 Hgb 12.40 g/dL (11.27-16.99) 06/11/24 20:07 Hct 40.2 % (37-53) 06/11/24 20:07 MCV 90.3 fl (82-101) 06/11/24 20:07 MCH 27.9 pg (27-33) 06/11/24 20:07 MCHC 30.8 g/dL (30-55) 06/11/24 20:07 RDW 14.5 % (12.1-15.1) 06/11/24 20:07 Plt Count 178 10^3/cmm (157-399) 06/11/24 20:07 MPV 10.5 fL (7.4-10.4) H 06/11/24 20:07 Neut % (Auto) 69.5 % 06/11/24 20:07 Lymph % (Auto) 15.0 % 06/11/24 20:07 [place] % (Auto) 10.5 % 06/11/24 20:07 Eos % (Auto) 3.1 % 06/11/24 20:07 Baso % (Auto) 0.2 % 06/11/24 20:07 Neut # (Auto) 7.80 10^3/uL (1.8-7.7) H 06/11/24 20:07 Lymph # (Auto) 1.7 10^3/uL (0.8-4.8) 06/11/24 20:07 [place] # (Auto) 1.2 10^3/uL (0.2-0.9) H 06/11/24 20:07 Eos # (Auto) 0.4 10^3/uL (0.0-0.8) 06/11/24 20:07 Baso # (Auto) 0.0 10^3/uL (0.0-0.1) 06/11/24 20:07 Nucleated RBC % (auto) 0 % 06/11/24 20:07 Nucleated RBCs # 0.0 /100WBC 06/11/24 20:07 ESR 36 mm/hr (0-10) H 06/11/24 20:07 D-Dimer 0.56 ug/mLFEU (0-0.59) 06/11/24 20:07 Specimen Type Arterial 06/11/24 21:18 Sample Site Radial, right 06/11/24 21:18 ABG pH 7.45 (7.35-7.45) 06/11/24 21:18 ABG pCO2 49.7 mmHg (35-45) H 06/11/24 21:18 ABG pO2 100.0 mmHg (80.0-100.0) 06/11/24 21:18 ABG HCO3 34.1 mmol/L (22-26) H 06/11/24 21:18 ABG O2 Saturation 98.6 06/11/24 21:18 ABG Base Excess 8.6 mmol/L (-2.0-2.0) H 06/11/24 21:18 Wilmer Test Pos 06/11/24 21:18 Hematocrit 38.3 % (42-52) L 06/11/24 21:18 Hgb O2 Saturation 96.4 % (95-100) 06/11/24 21:18 Carboxyhemoglobin 1.3 %THgb (0.4-20.1) 06/11/24 21:18 Methemoglobin 1.0 % (0.4-1.5) 06/11/24 21:18 Total Hemoglobin 12.5 g/dL (14-18) L 06/11/24 21:18 Sodium 140.0 mmol/L (131-143) 06/11/24 21:18 Potassium 4.1 mmol/L (3.5-5.0) 06/11/24 21:18 Glucose 100.0 mg/dL (70-115) 06/11/24 21:18 Ionized Calcium 1.2 mmol/L (1.1-1.4) 06/11/24 21:18 O2 Delivery Device Nc 06/11/24 21:18 O2 Liters/Min 3.0 % 06/11/24 21:18 Cat Hooker ID Cl 06/11/24 21:18 Sodium 140 mmol/L (136-145) 06/11/24 20:07 Potassium 4.5 mmol/L (3.5-5.1) 06/11/24 20:07 Chloride 102 mmol/L (98-107) 06/11/24 20:07 Carbon Dioxide 29 mmol/L (22-29) 06/11/24 20:07 Anion Gap 13.5 (5-19) 06/11/24 20:07 BUN 26 mg/dL (8-23) H 06/11/24 20:07 Creatinine 1.0 mg/dL (0.7-1.2) 06/11/24 20:07 GFR Calculation 75.0 mL/min (90-130) L 06/11/24 20:07 Glucose 145 mg/dL (65-115) H 06/11/24 20:07 Calculated Osmolality 297 mOsm/kg (285-295) H 06/11/24 20:07 Lactic Acid 1.6 mmol/L (0.5-2.2) 06/11/24 20:07 Calcium 8.6 mg/dL (8.5-10.5) 06/11/24 20:07 Total Bilirubin 0.2 mg/dL (0.15-1.2) 06/11/24 20:07 AST 16 U/L (0-40) 06/11/24 20:07 ALT 21 U/L (0-41) 06/11/24 20:07 Alkaline Phosphatase 93 U/L (40-130) 06/11/24 20:07 Lactate Dehydrogenase 185 U/L (135-225) 06/11/24 23:22 Troponin T Baseline 13 ng/L (0-15) 06/11/24 20:07 Troponin T 120 Minute 12.01 ng/L (0-15) 06/11/24 23:22 Delta Troponin T -0.99 ABS# (0-10) L 06/11/24 23:22 C-Reactive Protein 55.3 mg/L (0.0-4.9) H 06/11/24 23:22 NT-Pro-B Natriuret Pep 158 pg/mL (0-125) H 06/11/24 20:07 Total Protein 6.0 g/dL (6.6-8.7) L 06/11/24 20:07 Albumin 3.7 g/dL (3.5-5.2) 06/11/24 20:07 Globulin 2.3 g/dL (1.3-4.6) 06/11/24 20:07 Procalcitonin 0.04 ng/mL (0-0.5) 06/11/24 23:22 Urine Color Yellow (Yellow) 06/11/24 20:07 Urine Appearance Clear (CLEAR) 06/11/24 20:07 Urine pH 5 (5-7) 06/11/24 20:07 Ur Specific [place] 1.020 (1.005-1.030) 06/11/24 20:07 Urine Protein Neg (Negative) 06/11/24 20:07 Urine Glucose (UA) Norm (Normal) 06/11/24 20:07 Urine Ketones Negative (Negative) 06/11/24 20:07 Urine Blood 2+ (Negative) H 06/11/24 20:07 Urine Nitrate Negative (Negative) 06/11/24 20:07 Urine Bilirubin Neg (Negative) 06/11/24 20:07 Urine Urobilinogen Norm mg/dL (Negative) 06/11/24 20:07 Ur Leukocyte Esterase Negative (Negative) 06/11/24 20:07 Urine RBC 0-4 /hpf (0-2) H 06/11/24 20:07 Urine WBC 0-4 /hpf (0-5) H 06/11/24 20:07 Ur Squamous Epith Cells 0-4 /hpf (0-5) H 06/11/24 20:07 Amorphous Sediment Not Reportable 06/11/24 20:07 Urine Bacteria Trace /hpf (NONE) 06/11/24 20:07 Coronavirus (PCR) Negative (Negative) 06/11/24 20:07 Influenza A (PCR) Negative (Negative) 06/11/24 20:07 Influenza Type B (PCR) Negative (Negative) 06/11/24 20:07 RSV (PCR) Negative (Negative) 06/11/24 20:07 All radiology interpretation(s) finalized by discharge Discharge Plan Discharge Patient Disposition: Admitted As Inpatient Admit Provider: Tyler Mari Clinical Impression: COPD with acute exacerbation, Chronic hypoxemic respiratory failure, Congestive heart failure Condition: Stable Coding Level of Care Code ED Fashion Editor for Chg Fwd Documented by User: Kalen Banerjee Kali, DO 06/12/24 14:55 HPI - Chest Pain General: Chief Complaint: ER Hold Stated Complaint: SOB Time Seen by Provider: 06/11/24 19:53 Related Data Home Medications Medication Instructions Recorded Confirmed primidone 50 mg tablet 100 mg PO BEDTIME 12/01/22 06/05/24 pantoprazole 40 mg tablet,delayed 40 mg PO DAILY 01/31/24 06/05/24 release prednisone 5 mg tablet 10 mg PO DAILY PRN asthma 03/27/24 06/05/24 atorvastatin 20 mg tablet 20 mg PO DAILY 03/29/24 06/05/24 benralizumab 30 mg/mL subcutaneous 30 mg SUBCUT .Q 8WKS 04/02/24 06/05/24 auto-injector (Fasenra Pen) budesonide 160 mcg-glycopyr 9 2 inh inhalation BID 04/02/24 06/05/24 mcg-formot 4.8 mcg/actuation HFA inhaler (Breztri Aerosphere) guaifenesin 600 mg tablet, 600 mg PO Q12H PRN Congestion 04/02/24 06/05/24 extended release 12 hr ipratropium 0.5 mg-albuterol 3 mg 3 ml inhalation Q6H PRN Shortness 04/02/24 06/05/24 (2.5 mg base)/3 mL nebulization Of Breath Or Wheezing soln Previous Rx's Medication Instructions Recorded hsopital bed #1 ea 08/28/22 wheelchair #1 ea 08/28/22 A7005 Nebulizer Set #1 ea 10/13/23 olanzapine 2.5 mg tablet (Zyprexa) 2.5 mg PO DAILY #90 tabs 11/05/23 levalbuterol tartrate 45 2 inh inhalation Q6H PRN shortness 02/09/24 mcg/actuation aerosol inhaler of breath or wheezing #15 grams nitroglycerin 0.4 mg sublingual See Rx Instructions .Route 06/19/24 tablet .COMPLEX #25 tabs tezepelumab-ekko 210 mg/1.91 mL 210 mg (1.91 mL) SUBCUT .Q 4 weeks 03/22/24 (110 mg/mL) subcutaneous pen #1.91 mL injector (Tezspire) isosorbide mononitrate 30 mg 60 mg (2 x 30 mg) PO DAILY #60 tabs 03/29/24 tablet,extended release 24 hr metoprolol tartrate 25 mg tablet 12.5 mg (1/2 x 25 mg) PO Q12H #30 03/29/24 tabs citalopram 40 mg tablet 40 mg PO DAILY #30 tabs 05/25/24 gabapentin 300 mg capsule See Rx Instructions .Route 05/25/24 .COMPLEX #90 caps montelukast 10 mg tablet 10 mg PO DAILY #30 tabs 05/25/24 levofloxacin 750 mg tablet 750 mg PO DAILY 4 days #4 tabs 06/08/24 prednisone 10 mg tablet See Rx Instructions .Route 06/08/24 .COMPLEX #30 tabs Allergies Allergy/AdvReac Type Severity Reaction Status Date / Time No Known Allergies Allergy Verified 02/19/24 08:21 [facility] ED PFS: Medical History (Updated 06/11/24 @ 23:32 by Tyler Mari MD) CHF exacerbation Chronic hypoxemic respiratory failure Acute on chronic hypoxic respiratory failure Sleep walking Asthma-COPD overlap syndrome Degenerative lumbar disc History of compression fracture of spine Left leg DVT 07/2022 Cognitive impairment GERD (gastroesophageal reflux disease) Tremor Chronic neck pain Pulmonary emphysema with fibrosis of lung Surgical History History of cataract extraction bilateral History of tonsillectomy Hx of appendectomy Family History Other Dementia Stroke Denies family history of Diabetes CAD (coronary artery disease) Clotting disorder Hyperlipidemia Psychiatric illness Chronic kidney disease (CKD) Suicide Anesthesia complication Bleeding disorder Family history of premature coronary artery disease Lung disease Cancer Hypertension Social History Smoking and tobacco/nicotine status: former use of tobacco/nicotine Quit status (tobacco/nicotine): has quit using Year quit tobacco: 2017 Former quit date comment: 1pack per month x 2 years Second hand smoke exposure: No Alcohol intake: never Substance/Drug Use: never Course Vital Signs: Vital signs: Vital Signs Temperature 97.5 F L 06/11/24 20:06 Pulse Rate 69 06/12/24 12:00 Respiratory Rate 22 H 06/12/24 12:00 Blood Pressure 126/85 06/12/24 12:00 Pulse Oximetry 94 06/12/24 12:00 Oxygen Delivery Me thod Nasal Cannula 06/12/24 12:00 Oxygen Flow Rate 3 06/12/24 12:00 MDM - Chest Pain Medical Decision Making Patient presented by ambulance for shortness of breath, was discharged on 06/08 for exacerbation of COPD along with complications of chronic hypoxemic respiratory failure and congestive heart failure. He was discharged on Levaquin and prednisone. He does have a nebulizer butyryl treatments at home, prior to calling ambulance took a nitro and EMS also gave nitro as well as DuoNeb and prednisone. He did arrive mildly tachypneic with distant lung and heart sounds, though these were likely secondary to body habitus. There was no appreciable wheezing or rhonchi. He is chronically on 4 L of oxygen, has maintained 3 L of oxygen here 93 to 97%. Labs obtained include an unremarkable CBC, CMP, baseline BNP, baseline ABG, unremarkable urinalysis, and negative troponin. Initial EKG showed some signs of ST depression that does seem to be new from prior, this was reviewed with Dr. Ca. A chest x-ray obtained did not show any signs of consolidation, and a chest CT further clarified that there was no signs of a pneumonia or other consolidation. Rechecked patient states he feels better after receiving a DuoNeb here in the emergency department along with Solu-Medrol. He does have appointment with pulmonology in a few weeks with Dr. Fortune. I spoke with hospitalist, Dr. Mari, who agrees to accept the patient to the [facility] [place]. Discussed this patient's case with Dr. Bass who will put in admit orders at this time. This patient was seen by Mr. Ana PA-C. I agree with his history, evaluation, and treatment. Lab Data 06/12/24 05:37 06/12/24 05:37 Radiology Impressions Chest X-Ray 06/11/24 19:54 IMPRESSION: No obvious acute consolidation. Suboptimal lung base assessment. Followup including lateral view may be obtained if clinically indicated. Please also refer to chest CT exam report same day. Chest CT 06/11/24 21:01 IMPRESSION: 1. No acute lung consolidation or ground-glass opacity. Multiple tiny linear opacity suggesting atelectasis-scarring. 2. Right upper lobe nodular density measuring 2-3 mm.For patients at low risk (minimal or absent history of smoking and of other known risk factors), no routine follow-up is indicated. For patients at high risk (history of smoking or of other known risk factors), consider optional CT Chest at 12 months. (Reference: Gypsy) 3. Coronary calcification and other nonacute findings as described. REFERENCES: Gypsy Cutler, et al. Guidelines for Management of Incidental Pulmonary Nodules Detected on CT Images: From the Fleischner Society 2017. Radiology. 2017;284(1):228-243. Laboratory Results WBC 11.22 10^3/uL (3.29-11.43) 06/11/24 20:07 RBC 4.45 10^6/uL (3.85-5.65) 06/11/24 20:07 Hgb 12.40 g/dL (11.27-16.99) 06/11/24 20:07 Hct 40.2 % (37-53) 06/11/24 20:07 MCV 90.3 fl (82-101) 06/11/24 20:07 MCH 27.9 pg (27-33) 06/11/24 20:07 MCHC 30.8 g/dL (30-55) 06/11/24 20:07 RDW 14.5 % (12.1-15.1) 06/11/24 20:07 Plt Count 178 10^3/cmm (157-399) 06/11/24 20:07 MPV 10.5 fL (7.4-10.4) H 06/11/24 20:07 Neut % (Auto) 69.5 % 06/11/24 20:07 Lymph % (Auto) 15.0 % 06/11/24 20:07 [place] % (Auto) 10.5 % 06/11/24 20:07 Eos % (Auto) 3.1 % 06/11/24 20:07 Baso % (Auto) 0.2 % 06/11/24 20:07 Neut # (Auto) 7.80 10^3/uL (1.8-7.7) H 06/11/24 20:07 Lymph # (Auto) 1.7 10^3/uL (0.8-4.8) 06/11/24 20:07 [place] # (Auto) 1.2 10^3/uL (0.2-0.9) H 06/11/24 20:07 Eos # (Auto) 0.4 10^3/uL (0.0-0.8) 06/11/24 20:07 Baso # (Auto) 0.0 10^3/uL (0.0-0.1) 06/11/24 20:07 Nucleated RBC % (auto) 0 % 06/11/24 20:07 Nucleated RBCs # 0.0 /100WBC 06/11/24 20:07 ESR 36 mm/hr (0-10) H 06/11/24 20:07 D-Dimer 0.56 ug/mLFEU (0-0.59) 06/11/24 20:07 Specimen Type Arterial 06/11/24 21:18 Sample Site Radial, right 06/11/24 21:18 ABG pH 7.45 (7.35-7.45) 06/11/24 21:18 ABG pCO2 49.7 mmHg (35-45) H 06/11/24 21:18 ABG pO2 100.0 mmHg (80.0-100.0) 06/11/24 21:18 ABG HCO3 34.1 mmol/L (22-26) H 06/11/24 21:18 ABG O2 Saturation 98.6 06/11/24 21:18 ABG Base Excess 8.6 mmol/L (-2.0-2.0) H 06/11/24 21:18 Wilmer Test Pos 06/11/24 21:18 Hematocrit 38.3 % (42-52) L 06/11/24 21:18 Hgb O2 Saturation 96.4 % (95-100) 06/11/24 21:18 Carboxyhemoglobin 1.3 %THgb (0.4-20.1) 06/11/24 21:18 Methemoglobin 1.0 % (0.4-1.5) 06/11/24 21:18 Total Hemoglobin 12.5 g/dL (14-18) L 06/11/24 21:18 Sodium 140.0 mmol/L (131-143) 06/11/24 21:18 Potassium 4.1 mmol/L (3.5-5.0) 06/11/24 21:18 Glucose 100.0 mg/dL (70-115) 06/11/24 21:18 Ionized Calcium 1.2 mmol/L (1.1-1.4) 06/11/24 21:18 O2 Delivery Device Nc 06/11/24 21:18 O2 Liters/Min 3.0 % 06/11/24 21:18 Cat Hooker ID Cl 06/11/24 21:18 Sodium 140 mmol/L (136-145) 06/11/24 20:07 Potassium 4.5 mmol/L (3.5-5.1) 06/11/24 20:07 Chloride 102 mmol/L (98-107) 06/11/24 20:07 Carbon Dioxide 29 mmol/L (22-29) 06/11/24 20:07 Anion Gap 13.5 (5-19) 06/11/24 20:07 BUN 26 mg/dL (8-23) H 06/11/24 20:07 Creatinine 1.0 mg/dL (0.7-1.2) 06/11/24 20:07 GFR Calculation 75.0 mL/min (90-130) L 06/11/24 20:07 Glucose 145 mg/dL (65-115) H 06/11/24 20:07 Calculated Osmolality 297 mOsm/kg (285-295) H 06/11/24 20:07 Lactic Acid 1.6 mmol/L (0.5-2.2) 06/11/24 20:07 Calcium 8.6 mg/dL (8.5-10.5) 06/11/24 20:07 Total Bilirubin 0.2 mg/dL (0.15-1.2) 06/11/24 20:07 AST 16 U/L (0-40) 06/11/24 20:07 ALT 21 U/L (0-41) 06/11/24 20:07 Alkaline Phosphatase 93 U/L (40-130) 06/11/24 20:07 Lactate Dehydrogenase 185 U/L (135-225) 06/11/24 23:22 Troponin T Baseline 13 ng/L (0-15) 06/11/24 20:07 Troponin T 120 Minute 12.01 ng/L (0-15) 06/11/24 23:22 Delta Troponin T -0.99 ABS# (0-10) L 06/11/24 23:22 C-Reactive Protein 55.3 mg/L (0.0-4.9) H 06/11/24 23:22 NT-Pro-B Natriuret Pep 158 pg/mL (0-125) H 06/11/24 20:07 Total Protein 6.0 g/dL (6.6-8.7) L 06/11/24 20:07 Albumin 3.7 g/dL (3.5-5.2) 06/11/24 20:07 Globulin 2.3 g/dL (1.3-4.6) 06/11/24 20:07 Procalcitonin 0.04 ng/mL (0-0.5) 06/11/24 23:22 Urine Color Yellow (Yellow) 06/11/24 20:07 Urine Appearance Clear (CLEAR) 06/11/24 20:07 Urine pH 5 (5-7) 06/11/24 20:07 Ur Specific [place] 1.020 (1.005-1.030) 06/11/24 20:07 Urine Protein Neg (Negative) 06/11/24 20:07 Urine Glucose (UA) Norm (Normal) 06/11/24 20:07 Urine Ketones Negative (Negative) 06/11/24 20:07 Urine Blood 2+ (Negative) H 06/11/24 20:07 Urine Nitrate Negative (Negative) 06/11/24 20:07 Urine Bilirubin Neg (Negative) 06/11/24 20:07 Urine Urobilinogen Norm mg/dL (Negative) 06/11/24 20:07 Ur Leukocyte Esterase Negative (Negative) 06/11/24 20:07 Urine RBC 0-4 /hpf (0-2) H 06/11/24 20:07 Urine WBC 0-4 /hpf (0-5) H 06/11/24 20:07 Ur Squamous Epith Cells 0-4 /hpf (0-5) H 06/11/24 20:07 Amorphous Sediment Not Reportable 06/11/24 20:07 Urine Bacteria Trace /hpf (NONE) 06/11/24 20:07 Coronavirus (PCR) Negative (Negative) 06/11/24 20:07 Influenza A (PCR) Negative (Negative) 06/11/24 20:07 Influenza Type B (PCR) Negative (Negative) 06/11/24 20:07 RSV (PCR) Negative (Negative) 06/11/24 20:07 Discharge Plan Discharge Patient Disposition: Admitted As Inpatient Admit Provider: Tyler Mari Clinical Impression: COPD with acute exacerbation, Chronic hypoxemic respiratory failure, Congestive heart failure Condition: Stable Coding Level of Care Code 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
[2024-06-11 20:49] LABS: Troponin(5th) Baseline 13 ng/L (0-15)
[2024-06-11] MEDS: methylPREDNISolone sod succ 125 mg/2 mL INJ IVP (20:49)
[2024-06-11 20:54] LABS: Add Urine Culture? No; Add Urine Microscopic? YES; Bacteria Urine TRACE /hpf; Bilirubin Urine Neg (Negative); Blood Urine 2+ (Negative); Glucose Urine UA Norm (Normal); Ketones Urine Negative (Negative); Leukocyte Esterase Urine Negative (Negative); Nitrate Urine Negative (Negative); Protein Urine Neg (Negative); RBC Urine 0-4 /hpf (0-2); Squamous Epithelial Cell Urine 0-4 /hpf (0-5); Urine Appearance Clear (CLEAR); Urine Color Yellow (Yellow); Urobilinogen Urine Norm (Negative); WBC Urine 0-4 /hpf (0-5); pH Urine 5 (5-7)
[2024-06-11 20:59] LABS: Alanine Aminotransferase 21 U/L (0-41); Albumin Level 3.7 g/dL (3.5-5.2); Alkaline Phosphatase 93 U/L (40-130); Anion Gap 13.5 (5-19); Aspartate Amino Transferase 16 U/L (0-40); Blood Urea Nitrogen 26 mg/dL (8-23); Calcium 8.6 mg/dL (8.5-10.5); Carbon Dioxide 29 mmol/L (22-29); Chloride 102 mmol/L (98-107); Creatinine Clr Calc Pharmacy 95.6692; Globulin 2.3 g/dL (1.3-4.6); Glucose 145 mg/dL (65-115); NT Pro B Type Natriuretic Pept 158 pg/mL (0-125); Osmolality Calculated 297 mOsm/kg (285-295); Potassium 4.5 mmol/L (3.5-5.1); Sodium 140 mmol/L (136-145); Total Bilirubin 0.2 mg/dL (0.15-1.2)
[2024-06-11] MEDS: ipratropium-albuterol 3 mL Neb INHALATION (21:00)
--- NOTE | 2024-06-11 21:01 | CTR_ITS ---
PROCEDURE INFORMATION: Exam: CT Chest With Contrast; Diagnostic Exam date and time: 06/11/2024 9:33 PM Age: 64 years old Clinical indication: Shortness of breath; Patient HX: C/O worsening SOB. Recent hospitalization for pneumonia. ; Additional info: Worsening SOB, rll pna, recent hospitalization TECHNIQUE: Imaging protocol: Diagnostic computed tomography of the chest with contrast. Radiation optimization: All CT scans at this facility use at least one of these dose optimization techniques: automated exposure control; mA and/or kV adjustment per patient size (includes targeted exams where dose is matched to clinical indication); or iterative reconstruction. Contrast material: OMNI 350; Contrast volume: 100 ml; Contrast route: INTRAVENOUS (IV); COMPARISON: CT angio chest PE protcl [id number] 04/04/2024 4:26 PM RADIATION DOSE METRICS: Total DLP (mGy-cm): 688.21 FINDINGS: Lungs: Tiny nodular density right upper lobe measuring 2-3 mm series 5, image 20, unchanged. No dense consolidation or ground-glass opacity. Multiple tiny linear opacities are noted in the mid and lower lung zones suggesting subsegmental atelectasis-scarring. Pleural spaces: Unremarkable. No pneumothorax. No pleural effusion. Heart: Normal heart size with coronary calcification. Lymph nodes: No enlarged lymph nodes. Vasculature: No vascular congestion. No aneurysm. Liver: A few tiny hypodense lesions in the partially visualized liver, measuring up to 6 mm in the posterior right hepatic dome, nonspecific and most likely benign. However comparison prior study/follow up assessment may be considered if there is high risk or prior malignancy. Bones/joints: No acute findings. Soft tissues: No acute findings. CT/CT chest w con* [id number] IMPRESSION: 1. No acute lung consolidation or ground-glass opacity. Multiple tiny linear opacity suggesting atelectasis-scarring. 2. Right upper lobe nodular density measuring 2-3 mm.For patients at low risk (minimal or absent history of smoking and of other known risk factors), no routine follow-up is indicated. For patients at high risk (history of smoking or of other known risk factors), consider optional CT Chest at 12 months. (Reference: Gypsy) 3. Coronary calcification and other nonacute findings as described. REFERENCES: Gypsy Cutler, et al. Guidelines for Management of Incidental Pulmonary Nodules Detected on CT Images: From the Fleischner Society 2017. Radiology. 2017;284(1):228-243.
[2024-06-11 21:02] VITALS: PULSE 83; RESP 20; O2SAT 94
[2024-06-11 21:23] LABS: Covid PCR NEGATIVE (Negative); Influenza A NEGATIVE (Negative); Influenza B NEGATIVE (Negative); Respiratory Syncytial Virus Ce NEGATIVE (Negative)
[2024-06-11 21:27] LABS: ABG PCO2 49.7 mmHg (35-45); ABG PH Result 7.45 (7.35-7.45); Arterial Blood Gas Hematocrit 38.3 % (42-52); Base Excess ABG 8.6 mmol/L (-2.0-2.0); Blood Gas Allen Test Pos; Blood Gas Operator Identificat CL; Blood Gas Sample Site Radial, right; Blood Gas Sample Type Arterial; Carboxyhemoglobin 1.3 %THgb (0.4-20.1); HCO3 ABG 34.1 mmol/L (22-26); HGB O2 Sat 96.4 % (95-100); Ionized Calcium Level - ABG 1.2 mmol/L (1.1-1.4); Oxygen Device NC; Oxygen Saturation ABG 98.6; Potassium Level - ABG 4.1 mmol/L (3.5-5.0); Total Hemoglobin 12.5 g/dL (14-18)
[2024-06-11] MEDS: iohexol 350 mg/mL 500 mL Btl (per mL) IV (21:35)
--- NOTE | 2024-06-11 21:53 | ECG_ITS ---
[facility] Test Date: 2024-06-11 Pat Name: Elvin Nunn Department: Room: Gender: Male Black Topper: : 1960 Requested By: Magdy Cowart Order Number: [id number] Lester MD: Kedar Coyle M.D. Measurements Intervals [place] Rate: 72 P: 61 CA: 251 QRS: -33 QRSD: 80 T: 62 QT: 373 QTc: 410 Interpretive Statements SINUS RHYTHM WITH FIRST DEGREE AV BLOCK LEFT AXIS DEVIATION [QRS AXIS < -30] Compared to ECG 06/11/2024 19:44:35 First degree AV block now present Left-axis deviation now present Indeterminate axis no longer present ST (T wave) deviation no longer present Electronically Signed On 06-12-2024 9:22:11 CDT by Kedar Coyle M.D. [id number]
[2024-06-11 22:13] VITALS: BP 114/70; PULSE 73; RESP 20; O2SAT 95
--- NOTE | 2024-06-11 23:28 | PM.HP ---
Providers/Chief Complaint Primary Care Provider: Katherine Horner NP Chief Complaint: SOB History of Present Illness Elvin Nunn is a 64 year old male with a past medical history of asthma COPD overlap, pneumonia, CHF, major depressive disorder, dyslipidemia, GERD, who presents to [facility] for persistent shortness of breath, cough, chest pain. Patient tells me that since being discharged from the hospital he had persistent shortness of breath, nonproductive cough, no fevers, no chills, intermittent chest discomfort, no lightheadedness, no dizziness, Review of Systems Const: Denies: fever(s) or chills Card: Denies: chest pain Resp: Reports: dyspnea and non-productive cough Medications/Allergies Home Medications Medication Instructions Recorded Confirmed Last Taken Type hsopital bed #1 ea 08/28/22 06/05/24 Unknown Rx wheelchair #1 ea 08/28/22 06/05/24 Unknown Rx primidone 50 mg tablet 100 mg PO BEDTIME 12/01/22 06/05/24 03/28/24 History A7005 Nebulizer Set #1 ea 10/13/23 06/05/24 Unknown Rx olanzapine 2.5 mg tablet (Zyprexa) 2.5 mg PO DAILY #90 tabs 11/05/23 06/05/24 03/29/24 Rx pantoprazole 40 mg tablet,delayed 40 mg PO DAILY 01/31/24 06/05/24 03/29/24 History release levalbuterol tartrate 45 2 inh inhalation Q6H PRN shortness 02/09/24 06/05/24 Unknown Rx mcg/actuation aerosol inhaler of breath or wheezing #15 grams nitroglycerin 0.4 mg sublingual See Rx Instructions .Route 03/16/24 06/05/24 Unknown Rx tablet .COMPLEX #25 tabs tezepelumab-ekko 210 mg/1.91 mL 210 mg (1.91 mL) SUBCUT .Q 4 weeks 03/22/24 06/05/24 Unknown Rx (110 mg/mL) subcutaneous pen #1.91 mL injector (Tezspire) prednisone 5 mg tablet 10 mg PO DAILY PRN asthma 03/27/24 06/05/24 Unknown History atorvastatin 20 mg tablet 20 mg PO DAILY 03/29/24 06/05/24 03/29/24 History isosorbide mononitrate 30 mg 60 mg (2 x 30 mg) PO DAILY #60 tabs 03/29/24 06/05/24 03/29/24 Rx tablet,extended release 24 hr metoprolol tartrate 25 mg tablet 12.5 mg (1/2 x 25 mg) PO Q12H #30 03/29/24 06/05/24 03/29/24 Rx tabs benralizumab 30 mg/mL subcutaneous 30 mg SUBCUT .Q 8WKS 04/02/24 06/05/24 Unknown History auto-injector (Fasenra Pen) budesonide 160 mcg-glycopyr 9 2 inh inhalation BID 04/02/24 06/05/24 Unknown History mcg-formot 4.8 mcg/actuation HFA inhaler (Breztri Aerosphere) guaifenesin 600 mg tablet, 600 mg PO Q12H PRN Congestion 04/02/24 06/05/24 Unknown History extended release 12 hr ipratropium 0.5 mg-albuterol 3 mg 3 ml inhalation Q6H PRN Shortness 04/02/24 06/05/24 Unknown History (2.5 mg base)/3 mL nebulization Of Breath Or Wheezing soln citalopram 40 mg tablet 40 mg PO DAILY #30 tabs 05/25/24 06/05/24 Unknown Rx gabapentin 300 mg capsule See Rx Instructions .Route 05/25/24 06/05/24 Unknown Rx .COMPLEX #90 caps montelukast 10 mg tablet 10 mg PO DAILY #30 tabs 05/25/24 06/05/24 Unknown Rx levofloxacin 750 mg tablet 750 mg PO DAILY 4 days #4 tabs 06/08/24 Unknown Rx prednisone 10 mg tablet See Rx Instructions .Route 06/08/24 Unknown Rx .COMPLEX #30 tabs Allergies Allergy/AdvReac Type Severity Reaction Status Date / Time No Known Allergies Allergy Verified 02/19/24 08:21 PFSH Acute PFSH: Medical History (Updated 06/11/24 @ 23:32 by Tyler Mari MD) CHF exacerbation Chronic hypoxemic respiratory failure Acute on chronic hypoxic respiratory failure Sleep walking Asthma-COPD overlap syndrome Degenerative lumbar disc History of compression fracture of spine Left leg DVT 07/2022 Cognitive impairment GERD (gastroesophageal reflux disease) Tremor Chronic neck pain Pulmonary emphysema with fibrosis of lung Surgical History History of cataract extraction bilateral History of tonsillectomy Hx of appendectomy Family History Other Dementia Stroke Denies family history of Diabetes CAD (coronary artery disease) Clotting disorder Hyperlipidemia Psychiatric illness Chronic kidney disease (CKD) Suicide Anesthesia complication Bleeding disorder Family history of premature coronary artery disease Lung disease Cancer Hypertension Social History Smoking and tobacco/nicotine status: former use of tobacco/nicotine Quit status (tobacco/nicotine): has quit using Year quit tobacco: 2017 Former quit date comment: 1pack per month x 2 years Second hand smoke exposure: No Alcohol intake: never Substance/Drug Use: never Vitals/I&O/Wt Last Vital Signs Temp 97.5 F L 06/11/24 20:06 Pulse 73 06/11/24 22:13 Resp 20 H 06/11/24 22:13 BP 114/70 06/11/24 22:13 Pulse Ox 95 06/11/24 22:13 O2 Del Method Nasal Cannula 06/11/24 21:02 O2 Flow Rate 3 06/11/24 21:02 Weight last 48 hrs Weight 127.006 kg Physical Exam Const: COMMON NORMALS: no acute distress and patient oriented x3 HENMT: COMMON NORMALS: normocephalic HEAD & SCALP: normocephalic Eye: COMMON NORMALS: Equal, round and reactive pupils present Neck/C-Spine: COMMON NORMALS: no JVD Lymph: LYMPHATIC: no lymphadenopathy noted Resp: COMMON NORMALS: normal respiratory effort, No retractions, No use of accessory muscles and clear to auscultation bilaterally AUSCULTATION: wheezes Cardio: COMMON NORMALS: no JVD, regular rate, regular rhythm, S1 normal heart sound present and S2 normal heart sound present RATE: regular rate RHYTHM: regular rhythm HEART SOUNDS: S1 normal heart sound present and S2 normal heart sound present GI: COMMON NORMALS: Normal to inspection, nondistended, normoactive bowel sounds present, Soft to palpation and non-tender Extremity: COMMON NORMALS: no calf tenderness NARRATIVE EXTREMITY EXAM: 2+ pitting edema Neuro: COMMON NORMALS: patient oriented x3, CN's II-XII intact bilaterally and moves all extremities Psych: COMMON NORMALS: mental status grossly normal Data 06/11/24 20:07 06/11/24 20:07 A&P Assessment and plan (1) Mixed dyslipidemia: (2) COPD with acute exacerbation: (3) Asthma-COPD overlap syndrome: (4) Chronic hypoxemic respiratory failure: (5) Congestive heart failure: Qualifiers: Heart failure chronicity: chronic Heart failure type: unspecified Qualified Code(s): I50.9 - Heart failure, unspecified (6) CHF exacerbation: (7) Chest pain: Plan Chest pain ? Continue aspirin -Continue statin ? Serial EKGs, serial troponins, telemetry monitoring -Cardiac cath in 01/15/2023 -Conclusions 1. Moderate proximal LAD stenosis s/p IFR that was nonischemic. Medical therapy decided.. Acute asthma, COPD exacerbation -Continue Solu-Medrol 40 mg IV every 8 hours -Continue Rocephin, azithromycin -Follow sputum cultures -Continue DuoNeb -Continue budesonide -Monitor respiratory status closely Acute CHF exacerbation -Fluid restrictions at 1000 cc -Lasix 40 mg IV every 24 hours -Monitor respiratory status closely Full code Lovenox for DVT prophylaxis Attestations Medical Necessity Statement*: Patient requires hospitalization, inpatient, greater than 2 midnights, for chest pain, acute COPD asthma exacerbation, acute CHF exacerbation Diagnoses Mixed dyslipidemia E78.2 COPD with acute exacerbation J44.1 Asthma-COPD overlap syndrome J44.9 Chronic hypoxemic respiratory failure J96.11 Congestive heart failure I50.9 Heart failure chronicity: chronic Heart failure type: unspecified CHF exacerbation I50.9 Chest pain R07.9
[2024-06-11 23:37] LABS: Erythrocyte Sedimentation Rate 36 mm/hr (0-10)
[2024-06-11] MEDS: FUROsemide 10 mg/mL SDV 4mL 40 MG IVP (23:50)
[2024-06-11 23:53] LABS: D Dimer 0.56 ug/mLFEU (0-0.59)
[2024-06-11 23:55] LABS: Troponin 5 2HR 12.01 ng/L (0-15)
[2024-06-11 23:56] LABS: Lactic Sepsis W/Reflex 1.6 mmol/L (0.5-2.2)
[2024-06-11 23:58] LABS: C Reactive Protein 55.3 mg/L (0.0-4.9); Lactate Dehydrogenase 185 U/L (135-225)
[2024-06-12] VITALS (90 sets, daily range): BP systolic 101–160; BP diastolic 72–122; PULSE 57–88; RESP 12–30; TEMP 36.7; O2SAT 91–97
[2024-06-12 00:01] LABS: Troponin 5 2HR Delta -0.99 ABS# (0-10)
[2024-06-12 00:04] LABS: Procalcitonin 0.04 ng/mL (0-0.5)
[2024-06-12 02:23] LABS: Troponin 5 6HR 10.82 ng/L (0-15)
[2024-06-12 02:36] LABS: Troponin 5 6HR Delta -2.18 ng/L (0-12)
[2024-06-12] MEDS: ipratropium-albuterol 3 mL Neb INHALATION ×4 (02:52→20:51)
[2024-06-12] MEDS: gabapentin 300 mg Capsule PO ×3 (04:22→17:39)
[2024-06-12] MEDS: metoprolol tartrate 25 mg Tablet 12.5 MG PO ×2 (04:22→17:39)
[2024-06-12] MEDS: aspirin 81 mg EC Tablet PO (04:22)
[2024-06-12] MEDS: enoxaparin 40 mg/0.4 mL Syringe SUBCUT (04:23)
[2024-06-12] MEDS: pantoprazole 40 mg SDV IVP (04:23)
[2024-06-12] MEDS: azithromycin 500 MG in sodium chloride 0.9% 250 ML 250 MG IV (04:23)
[2024-06-12] MEDS: cefTRIAXone 1,000 mg SDV 1000 MG IVP (04:23)
[2024-06-12 05:45] LABS: Basophils % 0.1 %; Eosinophils % 0.1 %; Hematocrit 40.9 % (37-53); Lymphocytes # 0.5 10^3/uL (0.8-4.8); Lymphocytes % 4.9 %; Mean Corpuscular HGB Conc 31.3 g/dL (30-55); Mean Corpuscular Hemoglobin 27.8 pg (27-33); Mean Corpuscular Volume 88.9 fl (82-101); Mean Platelet Volume 10.3 fL (7.4-10.4); Monocytes # 0.2 10^3/uL (0.2-0.9); Monocytes % 2.2 %; Neutrophils # 9.35 10^3/uL (1.8-7.7); Neutrophils % 91.4 %; Nucleated Red Blood Cells % 0 %; Platelet Count 182 10^3/cmm (157-399); Red Cell Distribution Width 14.6 % (12.1-15.1); White Blood Count 10.23 10^3/uL (3.29-11.43)
--- NOTE | 2024-06-12 06:01 | ECG_ITS ---
[facility] Test Date: 2024-06-12 Pat Name: Elvin Nunn Department: Room: EDIP Gender: Male Clinical Data Coordinator: : 1960 Requested By: Magdy Cowart Order Number: [id number] Tayler MD: Kedar Coyle M.D. Measurements Intervals [place] Rate: 58 P: 65 MA: 280 QRS: -4 QRSD: 89 T: 65 QT: 418 QTc: 414 Interpretive Statements SINUS BRADYCARDIA WITH FIRST DEGREE AV BLOCK Compared to ECG 06/11/2024 22:01:13 Sinus rhythm no longer present Left-axis deviation no longer present Electronically Signed On 06-12-2024 9:18:28 CDT by Kedar Coyle M.D. [email or web address]villeADIKTIVOsum[facility].[email or web address]/store/[id number]
[2024-06-12 06:04] LABS: Anion Gap 13.4 (5-19); Blood Urea Nitrogen 26 mg/dL (8-23); Calcium 8.4 mg/dL (8.5-10.5); Carbon Dioxide 31 mmol/L (22-29); Chloride 100 mmol/L (98-107); Creatinine Clr Calc Pharmacy 119.5865; Glucose 180 mg/dL (65-115); Osmolality Calculated 299 mOsm/kg (285-295); Potassium 4.4 mmol/L (3.5-5.1); Sodium 140 mmol/L (136-145)
[2024-06-12 06:17] LABS: Thyroid Stimulating Hormone 0.71 uIU/mL (0.27-4.20)
[2024-06-12] MEDS: budesonide 0.5 mg/2 mL Neb INHALATION ×2 (08:22→20:51)
[2024-06-12] MEDS: atorvastatin 40 mg Tablet 20 MG PO (10:24)
[2024-06-12] MEDS: isosorbide mononitrate ER 30 mg Tablet 60 MG PO (10:24)
[2024-06-12] MEDS: citalopram 20 mg Tablet 40 MG PO (10:24)
[2024-06-12] MEDS: FUROsemide 10 mg/mL SDV 4mL 40 MG IVP (10:25)
[2024-06-12] MEDS: OLANZapine 5 mg TABLET 2.5 MG PO (10:25)
[2024-06-12] MEDS: methylPREDNISolone sod succ 40 mg/mL INJ IVP ×2 (10:25→17:39)
[2024-06-12] MEDS: acetaminophen 325 mg Tablet 650 MG PO (10:25)
--- NOTE | 2024-06-12 12:21 | P.PN_ITS ---
Subjective 2 Subjective: Patient is on 3 L nasal cannula Orthopnea PND No active chest pain Hemodynamically stable BNP less than 200 Vitals/I&O/Wt Last Vital Signs Temp 97.5 F L 06/11/24 20:06 Pulse 69 06/12/24 12:00 Resp 22 H 06/12/24 12:00 BP 126/85 06/12/24 12:00 Pulse Ox 94 06/12/24 12:00 O2 Del Method Nasal Cannula 06/12/24 12:00 O2 Flow Rate 3 06/12/24 12:00 06/11/24 06/12/24 06/12/24 22:59 06:59 14:59 Intake Total 250 / 250 Output Total 475 / 475 Balance -225 / -225 Weight last 48 hrs Weight 127.006 kg Physical Exam 2 Narrative: Awake and alert No orthopnea PND Mild signs of CHF GCS 15 Currently on 3 L [place] [employer] Data 06/12/24 05:37 06/12/24 05:37 Micro: Microbiology 06/12/24 05:40 Blood Culture - Preliminary Blood SPECIMEN COLLECTED 06/12/24 05:37 Blood Culture - Preliminary Blood SPECIMEN COLLECTED A&P Assessment and plan (1) Congestive heart failure: Qualifiers: Heart failure chronicity: chronic Heart failure type: unspecified Qualified Code(s): I50.9 - Heart failure, unspecified (2) Major depressive disorder, recurrent episode, severe, with psychosis: (3) Pain and swelling of left lower extremity: (4) Asthma-COPD overlap syndrome: (5) Excessive daytime sleepiness: Plan Diastolic CHF exacerbation Currently patient has mild pedal edema able to lay flat no sacrum orthopnea PND I am hoping patient be able to go home in next 24 hours He seems to have underlying mild cognitive impairment, has poor insight, CT scan of chest is not showing pneumonia or significant vascular congestion, Patient is at 3 L, stating that his sister puts him on 5 L of oxygen at home D- dimer unremarkable Full code Cardiac diet Attestations 2 Medical Necessity Statement*: Discharge tomorrow Diagnoses Congestive heart failure I50.9 Heart failure chronicity: chronic Heart failure type: unspecified Major depressive disorder, recurrent episode, severe, with psychosis F33.3 Pain and swelling of left lower extremity M79.605; M79.89 Asthma-COPD overlap syndrome J44.9 Excessive daytime sleepiness G47.19
[2024-06-12] MEDS: primidone 50 mg Tablet 100 MG PO (20:17)
[2024-06-13] VITALS (7 sets, daily range): BP systolic 127–147; BP diastolic 82–87; PULSE 64–86; RESP 18–25; TEMP 36.4–36.7; O2SAT 90–100
[2024-06-13] MEDS: methylPREDNISolone sod succ 40 mg/mL INJ IVP ×2 (01:06→07:46)
[2024-06-13] MEDS: gabapentin 300 mg Capsule PO ×2 (01:06→11:45)
[2024-06-13] MEDS: pantoprazole 40 mg SDV IVP (02:26)
[2024-06-13] MEDS: enoxaparin 40 mg/0.4 mL Syringe SUBCUT (02:26)
[2024-06-13] MEDS: metoprolol tartrate 25 mg Tablet 12.5 MG PO (04:33)
[2024-06-13 06:39] LABS: Anion Gap 9.4 (5-19); Blood Urea Nitrogen 32 mg/dL (8-23); Calcium 8.2 mg/dL (8.5-10.5); Carbon Dioxide 36 mmol/L (22-29); Chloride 96 mmol/L (98-107); Creatinine Clr Calc Pharmacy 95.6692; Glucose 191 mg/dL (65-115); Osmolality Calculated 296 mOsm/kg (285-295); Potassium 4.4 mmol/L (3.5-5.1); Sodium 137 mmol/L (136-145)
[2024-06-13] MEDS: budesonide 0.5 mg/2 mL Neb INHALATION (07:25)
[2024-06-13] MEDS: ipratropium-albuterol 3 mL Neb INHALATION (07:25)
[2024-06-13] MEDS: citalopram 20 mg Tablet 40 MG PO (07:45)
[2024-06-13] MEDS: isosorbide mononitrate ER 30 mg Tablet 60 MG PO (07:45)
[2024-06-13] MEDS: atorvastatin 40 mg Tablet 20 MG PO (07:46)
[2024-06-13] MEDS: aspirin 81 mg EC Tablet PO (07:46)
[2024-06-13] MEDS: OLANZapine 5 mg TABLET 2.5 MG PO (07:46)
[2024-06-13] MEDS: FUROsemide 10 mg/mL SDV 4mL 40 MG IVP (07:46)
--- NOTE | 2024-06-13 09:28 | PM.DCS ---
Discharge Providers Date of Admission: 06/11/24 23:23 Date of Discharge: June 13, 2024 Attending Provider at Admission: Tyler Mari MD Attending Provider at Discharge: Shanon Garcia MD Primary Care Provider: Katherine Horner NP Diagnoses at Discharge Discharge Diagnosis (1) Congestive heart failure: Status: Acute Qualifiers: Heart failure chronicity: chronic Heart failure type: unspecified Qualified Code(s): I50.9 - Heart failure, unspecified (2) Major depressive disorder, recurrent episode, severe, with psychosis: Status: Acute (3) Pain and swelling of left lower extremity: Status: Acute (4) Asthma-COPD overlap syndrome: Status: Acute (5) Excessive daytime sleepiness: Status: Acute Reason for Visit Reason for Visit: SOB Hospital Course Hospital Course 64-year-old male who was admitted for management evaluation of dyspnea on exertion, at baseline patient requires 4 to 5 L of oxygen, carries history of diastolic CHF, he was recently discharged from the hospital after aggressive diuresis and treatment for pneumonia. CT scan of chest did not show any signs of consolidation or significant pleural effusion. Patient was given diuretics during hospitalization which improved his symptoms. Remained stable on 3 L of oxygen via nasal cannula. He remained afebrile, no leukocytosis. He does have signs of fluid overload on clinical exam which I would anticipate improving with Bumex, patient is full code, sister was counseled on switching Lasix to Bumex. Please note patient always complained of shortness of breath while he would saturate well 95% on 3 L nasal cannula, he seems to have poor insight and cognitive impairment. Remained hemodynamically stable and neurologically intact throughout hospitalization. Physical Exam Narrative: Currently doing well on 3 L Signs of fluid load improving Pleasant and cooperative Dyspnea on exertion Awake and alert Discharge Data Studies Completed and Pending Completed Studies During Hospitalization Category Date Time Status CT chest w con* [id number] Stat Cat Scan 06/11/24 21:01 Completed XR chest 1V portable [id number] Stat Exams 06/11/24 19:54 Completed Pending at discharge Category Date Time Status Blood Culture Routine Lab 06/12/24 05:40 Results Urinalysis Routine Lab 06/12/24 03:28 Ordered Radiology Impressions Chest X-Ray 06/11/24 19:54 IMPRESSION: No obvious acute consolidation. Suboptimal lung base assessment. Followup including lateral view may be obtained if clinically indicated. Please also refer to chest CT exam report same day. Chest CT 06/11/24 21:01 IMPRESSION: 1. No acute lung consolidation or ground-glass opacity. Multiple tiny linear opacity suggesting atelectasis-scarring. 2. Right upper lobe nodular density measuring 2-3 mm.For patients at low risk (minimal or absent history of smoking and of other known risk factors), no routine follow-up is indicated. For patients at high risk (history of smoking or of other known risk factors), consider optional CT Chest at 12 months. (Reference: Gypsy) 3. Coronary calcification and other nonacute findings as described. REFERENCES: Gypsy Cutler, et al. Guidelines for Management of Incidental Pulmonary Nodules Detected on CT Images: From the Fleischner Society 2017. Radiology. 2017;284(1):228-243. Laboratory Results WBC 10.23 10^3/uL (3.29-11.43) 06/12/24 05:37 RBC 4.60 10^6/uL (3.85-5.65) 06/12/24 05:37 Hgb 12.80 g/dL (11.27-16.99) 06/12/24 05:37 Hct 40.9 % (37-53) 06/12/24 05:37 MCV 88.9 fl (82-101) 06/12/24 05:37 MCH 27.8 pg (27-33) 06/12/24 05:37 MCHC 31.3 g/dL (30-55) 06/12/24 05:37 RDW 14.6 % (12.1-15.1) 06/12/24 05:37 Plt Count 182 10^3/cmm (157-399) 06/12/24 05:37 MPV 10.3 fL (7.4-10.4) 06/12/24 05:37 Neut % (Auto) 91.4 % 06/12/24 05:37 Lymph % (Auto) 4.9 % 06/12/24 05:37 [place] % (Auto) 2.2 % 06/12/24 05:37 Eos % (Auto) 0.1 % 06/12/24 05:37 Baso % (Auto) 0.1 % 06/12/24 05:37 Neut # (Auto) 9.35 10^3/uL (1.8-7.7) H 06/12/24 05:37 Lymph # (Auto) 0.5 10^3/uL (0.8-4.8) L 06/12/24 05:37 [place] # (Auto) 0.2 10^3/uL (0.2-0.9) 06/12/24 05:37 Eos # (Auto) 0.0 10^3/uL (0.0-0.8) 06/12/24 05:37 Baso # (Auto) 0.0 10^3/uL (0.0-0.1) 06/12/24 05:37 Nucleated RBC % (auto) 0 % 06/12/24 05:37 Nucleated RBCs # 0.0 /100WBC 06/12/24 05:37 ESR 36 mm/hr (0-10) H 06/11/24 20:07 D-Dimer 0.56 ug/mLFEU (0-0.59) 06/11/24 20:07 Specimen Type Arterial 06/11/24 21:18 Sample Site Radial, right 06/11/24 21:18 ABG pH 7.45 (7.35-7.45) 06/11/24 21:18 ABG pCO2 49.7 mmHg (35-45) H 06/11/24 21:18 ABG pO2 100.0 mmHg (80.0-100.0) 06/11/24 21:18 ABG HCO3 34.1 mmol/L (22-26) H 06/11/24 21:18 ABG O2 Saturation 98.6 06/11/24 21:18 ABG Base Excess 8.6 mmol/L (-2.0-2.0) H 06/11/24 21:18 Wilmer Test Pos 06/11/24 21:18 A-a O2 Gradient Not Reportable 06/11/24 21:18 Hematocrit 38.3 % (42-52) L 06/11/24 21:18 Hgb O2 Saturation 96.4 % (95-100) 06/11/24 21:18 Carboxyhemoglobin 1.3 %THgb (0.4-20.1) 06/11/24 21:18 Methemoglobin 1.0 % (0.4-1.5) 06/11/24 21:18 Total Hemoglobin 12.5 g/dL (14-18) L 06/11/24 21:18 Sodium 140.0 mmol/L (131-143) 06/11/24 21:18 Potassium 4.1 mmol/L (3.5-5.0) 06/11/24 21:18 Glucose 100.0 mg/dL (70-115) 06/11/24 21:18 Ionized Calcium 1.2 mmol/L (1.1-1.4) 06/11/24 21:18 O2 Delivery Device Nc 06/11/24 21:18 O2 Liters/Min 3.0 % 06/11/24 21:18 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 [employer] ID Cl 06/11/24 21:18 Sodium 137 mmol/L (136-145) 06/13/24 05:53 Potassium 4.4 mmol/L (3.5-5.1) 06/13/24 05:53 Chloride 96 mmol/L (98-107) L 06/13/24 05:53 Carbon Dioxide 36 mmol/L (22-29) H 06/13/24 05:53 Anion Gap 9.4 (5-19) 06/13/24 05:53 BUN 32 mg/dL (8-23) H 06/13/24 05:53 Creatinine 1.0 mg/dL (0.7-1.2) 06/13/24 05:53 GFR Calculation 75.0 mL/min (90-130) L 06/13/24 05:53 Glucose 191 mg/dL (65-115) H 06/13/24 05:53 Calculated Osmolality 296 mOsm/kg (285-295) H 06/13/24 05:53 Lactic Acid 1.6 mmol/L (0.5-2.2) 06/11/24 20:07 Calcium 8.2 mg/dL (8.5-10.5) L 06/13/24 05:53 Total Bilirubin 0.2 mg/dL (0.15-1.2) 06/11/24 20:07 AST 16 U/L (0-40) 06/11/24 20:07 ALT 21 U/L (0-41) 06/11/24 20:07 Alkaline Phosphatase 93 U/L (40-130) 06/11/24 20:07 Lactate Dehydrogenase 185 U/L (135-225) 06/11/24 23:22 Troponin T Baseline 13 ng/L (0-15) 06/11/24 20:07 Troponin T 120 Minute 12.01 ng/L (0-15) 06/11/24 23:22 Delta Troponin T -0.99 ABS# (0-10) L 06/11/24 23:22 Troponin T Hi Sens 6Hr 10.82 ng/L (0-15) 06/12/24 01:40 Troponin T Hi Sens 6Hr Delta -2.18 ng/L (0-12) L 06/12/24 01:40 C-Reactive Protein 55.3 mg/L (0.0-4.9) H 06/11/24 23:22 NT-Pro-B Natriuret Pep 158 pg/mL (0-125) H 06/11/24 20:07 Total Protein 6.0 g/dL (6.6-8.7) L 06/11/24 20:07 Albumin 3.7 g/dL (3.5-5.2) 06/11/24 20:07 Globulin 2.3 g/dL (1.3-4.6) 06/11/24 20:07 Procalcitonin 0.04 ng/mL (0-0.5) 06/11/24 23:22 TSH 0.71 uIU/mL (0.27-4.20) 06/12/24 05:37 Urine Color Yellow (Yellow) 06/11/24 20:07 Urine Appearance Clear (CLEAR) 06/11/24 20:07 Urine pH 5 (5-7) 06/11/24 20:07 Ur Specific [place] 1.020 (1.005-1.030) 06/11/24 20:07 Urine Protein Neg (Negative) 06/11/24 20:07 Urine Glucose (UA) Norm (Normal) 06/11/24 20:07 Urine Ketones Negative (Negative) 06/11/24 20:07 Urine Blood 2+ (Negative) H 06/11/24 20:07 Urine Nitrate Negative (Negative) 06/11/24 20:07 Urine Bilirubin Neg (Negative) 06/11/24 20:07 Urine Urobilinogen Norm mg/dL (Negative) 06/11/24 20:07 Ur Leukocyte Esterase Negative (Negative) 06/11/24 20:07 Urine RBC 0-4 /hpf (0-2) H 06/11/24 20:07 Urine WBC 0-4 /hpf (0-5) H 06/11/24 20:07 Ur Squamous Epith Cells 0-4 /hpf (0-5) H 06/11/24 20:07 Amorphous Sediment Not Reportable 06/11/24 20:07 Urine Bacteria Trace /hpf (NONE) 06/11/24 20:07 Coronavirus (PCR) Negative (Negative) 06/11/24 20:07 Influenza A (PCR) Negative (Negative) 06/11/24 20:07 Influenza Type B (PCR) Negative (Negative) 06/11/24 20:07 RSV (PCR) Negative (Negative) 06/11/24 20:07 Vitals Last Vital Signs Temp 98.0 F 06/13/24 07:29 Pulse 69 06/13/24 07:29 Resp 18 06/13/24 07:29 BP 147/82 06/13/24 07:29 Pulse Ox 92 06/13/24 07:29 O2 Del Method Nasal Cannula 06/13/24 07:29 O2 Flow Rate 3 06/13/24 07:25 Discharge Plan Discharge Patient Disposition: Home Condition: Stable Prescriptions: New bumetanide 1 mg tablet 1 mg PO DAILY Qty: 60 1RF potassium chloride 10 mEq tablet extended release 10 meq PO DAILY Qty: 30 2RF Continued (DME) wheelchair See Rx Instructions .Route .MEDSUPPLY Qty: 1 0RF Rx Instructions: As directed (DME) hsopital bed See Rx Instructions .Route .MEDSUPPLY Qty: 1 0RF Rx Instructions: As directed olanzapine [Zyprexa] 2.5 mg tablet 2.5 mg PO DAILY Qty: 90 1RF primidone 50 mg tablet 100 mg PO BEDTIME levalbuterol tartrate 45 mcg/actuation HFA aerosol inhaler 2 inh inhalation Q6H PRN (Reason: shortness of breath or wheezing) Qty: 15 5RF [place] [place] [id number] Nebulizer Set See Rx Instructions .Route .MEDSUPPLY Qty: 1 0RF Rx Instructions: As directed nitroglycerin 0.4 mg tablet, sublingual See Rx Instructions .ROUTE .COMPLEX Qty: 25 0RF Dose Instruction: DISSOLVE ONE TABLET UNDER THE TONGUE EVERY 5 MINUTES NEEDED FOR CHEST PAIN. DO NOT EXCEED A TOTAL OF 3 DOSES IN 15 MINUTES Rx Instructions: DISSOLVE ONE TABLET UNDER THE TONGUE EVERY 5 MINUTES NEEDED FOR CHEST PAIN. DO NOT EXCEED A TOTAL OF 3 DOSES IN 15 MINUTES Tezspire 210 mg/1.91 mL (110 mg/mL) pen injector 210 mg SUBCUT .Q 4 weeks Qty: 1.91 11RF montelukast 10 mg tablet 10 mg PO DAILY Qty: 30 1RF citalopram 40 mg tablet 40 mg PO DAILY Qty: 30 0RF gabapentin 300 mg capsule See Rx Instructions .ROUTE .COMPLEX Qty: 90 0RF Dose Instruction: TAKE 1 CAPSULE BY MOUTH EVERY 8 HOURS Rx Instructions: TAKE 1 CAPSULE BY MOUTH EVERY 8 HOURS pantoprazole 40 mg tablet,delayed release (DR/EC) 40 mg PO DAILY prednisone 5 mg tablet 10 mg PO DAILY PRN (Reason: asthma) Hold Instructions: Resume on 04/19/24. hold while on steroid taper atorvastatin 20 mg tablet 20 mg PO DAILY isosorbide mononitrate 30 mg tablet extended release 24 hr 60 mg PO DAILY Qty: 60 0RF metoprolol tartrate 25 mg tablet 12.5 mg PO Q12H Qty: 30 0RF ipratropium-albuterol 0.5 mg-3 mg(2.5 mg base)/3 mL Solution For Nebulization 3 ml INHALATION Q6H PRN (Reason: Shortness Of Breath Or Wheezing) guaifenesin 600 mg Tablet Extended Release 12hr 600 mg PO Q12H PRN (Reason: Congestion) Fasenra Pen 30 mg/mL auto-injector 30 mg SUBCUT .Q 8WKS Breztri Aerosphere 160-9-4.8 mcg/actuation HFA aerosol inhaler 2 inh INHALATION BID prednisone 10 mg tablet See Rx Instructions .ROUTE .COMPLEX Qty: 30 0RF Rx Instructions: 40 mg daily x3d 20 mg daily x3d 10 mg daily x3d 5 mg daily thereafter levofloxacin 750 mg tablet 750 mg PO DAILY 4 Days Qty: 4 0RF Discharge Orders: Discharge Order (Routine); Ordered 06/13/24 Ordered By: Shanon Garcia Referrals: Katherine Horner NP [Primary Care Provider] - 06/20/24 9:00 am Patient Instructions: Bumetanide (By mouth), Potassium Chloride (By mouth), Heart Failure (GEN), CHF Stoplight, Opioid Safety Discharge Attestations Time Spent in Discharge Care*: greater than 30 min Quality Metrics Clinical Quality Measures [ No reported AMI, CVA or VTE this stay] Coding Level of Care Code Acute Code for Chg Fwd Diagnoses Congestive heart failure I50.9 Heart failure chronicity: chronic Heart failure type: unspecified Major depressive disorder, recurrent episode, severe, with psychosis F33.3 Pain and swelling of left lower extremity M79.605; M79.89 Asthma-COPD overlap syndrome J44.9 Excessive daytime sleepiness G47.19
--- NOTE | 2024-06-13 10:28 | PC.CHAP ---
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 [] Patient/Family/Request visit [] Outpatient visit [] Follow-up visit [] Physician referral [] Code/Alert [x] Routine visit [] Staff referral [] Actively dying [] Patient sleeping [] Family support [] [] Out of room [] Palliative care [] [] Receiving care in room [] Pre-surgical visit [] Trauma [] Long length of stay [] ICU visit [] Other: Relational/Emotional Strength [] Patient feels connected with others/family/visitors/staff [] Distress [] Loneliness/isolation [] Abandonment Spirituality of Patient [x] Person of Tova [] Attends Adventism of their [place] [x] Believes in Prayer [] Reads Bible or Hinduism materials [] There are Spiritual issues to be addressed Quiller Operator 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 [x] Prayer [x Active listening [] Non-anxious presence [] Spiritual/emotional support [] Crisis/trauma care [] Spiritual counseling [] Bereavement support [] Provided bereavement packet [x] Provided Bible/devotional materials [] Provided toy/stuffed animal, coloring book to patient or family member [] Provided Communion [] Anointing/[place] [] Salvation [x] Completed spiritual assessment [] Other: Impact on Illness or Injury [] Angry [] Fearful [] Anxious [] Often cries [] Exhaustion [] Unable to work [] Unable to attend muslim [] Unable to walk/stand [] Unable to read [] Unable to drive [] Unable to eat/drink [] Unable to sleep [] Unable to be with family [] Patient intubated [] Other: Summary Time spent with patient 10 min
--- NOTE | 2024-06-13 12:38 | PC.SOCIAL ---
IMM Updated Updated pt on IMM. No questions voiced. Provided pt a copy. Initialed, dated, & timed a copy & placed in chart.
== END 2024-06-13 13:21 | disposition home or self-care (01) | DRG 291 ==
LOC: ER 23:06 → ER IP 06-12 03:51 → MEDSURG 06-12 08:33
PROVIDERS: Admitting Provider Family Medicine; Emergency Provider Physician Assistant; PCP Nurse Practitioner Family; Visit Provider Internal Medicine
DX: I11.0 Hypertensive heart disease with heart failure (principal); I50.33 Acute on chronic diastolic (congestive) heart failure; F33.3 Major depressive disorder, recurrent, severe with psychotic symptoms; J44.1 Chronic obstructive pulmonary disease with (acute) exacerbation; J96.11 Chronic respiratory failure with hypoxia; K21.9 Gastro-esophageal reflux disease without esophagitis; Z79.899 Other long term (current) drug therapy; Z86.718 Personal history of other venous thrombosis and embolism; I25.10 Atherosclerotic heart disease of native coronary artery without angina pectoris; Z87.891 Personal history of nicotine dependence; M79.622 Pain in left upper arm; G47.10 Hypersomnia, unspecified; Z99.81 Dependence on supplemental oxygen; E78.2 Mixed hyperlipidemia
CPT/HCPCS: 0241U; 36415; 36600; 71045; 71260; 80048; 80051; 80053; 81001; 82330; 82805; 83605; 83615; 83880; 84145; 84443; 84484; 85025; 85378; 85651; 86140; 87040; 93005; 94640; 94664; 96372; 96374; 96375; 99285; J0456; J0696; J1650; J1940; J2470; J2919; J7050; J7626

== ENCOUNTER 2024-06-23 17:53 | Emergency (ER) | payer MEDICARE, MEDICAID, SELFPAY ==
[2024-06-23 17:57] VITALS: BP 153/122; PULSE 88; RESP 22; TEMP 36.6; O2SAT 96
--- NOTE | 2024-06-23 17:57 | ECG_ITS ---
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 Measurements Intervals [place] Rate: 87 P: 64 AL: 234 QRS: -51 QRSD: 78 T: 57 QT: 341 QTc: 412 Interpretive Statements SINUS RHYTHM WITH FIRST DEGREE AV BLOCK LEFT AXIS DEVIATION [QRS AXIS < -30] Compared to ECG 06/12/2024 06:01:29 Left-axis deviation now present Sinus bradycardia no longer present Electronically Signed On 06-24-2024 20:24:42 CDT by Bernie Park M.D. [email or web address]
--- NOTE | 2024-06-23 17:58 | XRR_ITS ---
PROCEDURE INFORMATION: Exam: XR Chest Exam date and time: 06/23/2024 6:04 PM Age: 64 years old Clinical indication: Shortness of breath; Additional info: SOB TECHNIQUE: Imaging protocol: Radiologic exam of the chest. Views: 1 view. COMPARISON: CT chest w con* [id number] 06/11/2024 9:33 PM FINDINGS: Lungs: No focal consolidation. Bibasilar subsegmental atelectasis. Pleural spaces: No evidence of pneumothorax. No evidence of pleural effusion. Heart/Mediastinum: Cardiomediastinal silhouette is within normal limits. Bones/joints: No evidence of acute osseous abnormality. XR/XR chest 1V portable [id number] IMPRESSION: 1. No acute cardiopulmonary abnormality. If there is ongoing clinical concern, consider correlation with CT.
--- NOTE | 2024-06-23 17:59 | ED_ITS ---
HPI - SOB/Dyspnea 2 General: Chief Complaint: Shortness of Breath/Dyspnea Stated Complaint: SOB Time Seen by Provider: 06/23/24 17:54 Source: patient Mode of arrival: ambulatory Limitations: no limitations History of Present Illness: HPI Narrative: 64-year-old male who has a history of [place] along with CHF patient has been admitted twice this month for his COPD. He states that he has been having some increased cough congestion shortness of breath over the last 2 days. Patient is on 3 years oxygen at baseline. He denies any fevers denies any pain. Associated symptoms: Deny abdominal pain, chest pain, fever(s), nausea or vomiting Related Data Home Medications Medication Instructions Recorded Confirmed primidone 50 mg tablet 100 mg PO BEDTIME 12/01/22 06/13/24 pantoprazole 40 mg tablet,delayed 40 mg PO DAILY 01/31/24 06/13/24 release prednisone 5 mg tablet 10 mg PO DAILY PRN asthma 03/27/24 06/13/24 atorvastatin 20 mg tablet 20 mg PO DAILY 03/29/24 06/13/24 ipratropium 0.5 mg-albuterol 3 mg 3 ml inhalation Q6H PRN Shortness 04/02/24 06/13/24 (2.5 mg base)/3 mL nebulization Of Breath Or Wheezing soln albuterol 90 mcg-budesonide 80 1 - 2 inh inhalation .Q4-6H PRN 06/13/24 06/13/24 mcg/actuation HFA aerosol inhaler Shortness Of Breath (Airsupra) Previous Rx's Medication Instructions Recorded hsopital bed #1 ea 08/28/22 wheelchair #1 ea 08/28/22 A7005 Nebulizer Set #1 ea 10/13/23 olanzapine 2.5 mg tablet (Zyprexa) 2.5 mg PO DAILY #90 tabs 11/05/23 levalbuterol tartrate 45 2 inh inhalation Q6H PRN shortness 02/09/24 mcg/actuation aerosol inhaler of breath or wheezing #15 grams nitroglycerin 0.4 mg sublingual See Rx Instructions .Route 03/16/24 tablet .COMPLEX #25 tabs tezepelumab-ekko 210 mg/1.91 mL 210 mg (1.91 mL) SUBCUT .Q 4 weeks 03/22/24 (110 mg/mL) subcutaneous pen #1.91 mL injector (Tezspire) isosorbide mononitrate 30 mg 60 mg (2 x 30 mg) PO DAILY #60 tabs 03/29/24 tablet,extended release 24 hr metoprolol tartrate 25 mg tablet 12.5 mg (1/2 x 25 mg) PO Q12H #30 03/29/24 tabs citalopram 40 mg tablet 40 mg PO DAILY #30 tabs 05/25/24 gabapentin 300 mg capsule See Rx Instructions .Route 05/25/24 .COMPLEX #90 caps montelukast 10 mg tablet 10 mg PO DAILY #30 tabs 05/25/24 prednisone 10 mg tablet See Rx Instructions .Route 06/08/24 .COMPLEX #30 tabs bumetanide 1 mg tablet 1 mg PO DAILY #60 tabs 06/13/24 potassium chloride 10 mEq 10 meq PO DAILY #30 tabs 06/13/24 tablet,extended release formoterol fumarate 20 mcg/2 mL 2 ml inhalation BID #120 mL 06/16/24 solution for nebulization (Perforomist) nirmatrelvir 300 mg (150 mg See Rx Instructions PO .COMPLEX 06/23/24 x2)-ritonavir 100 mg tablet,dose #30 ea pack (Paxlovid) Allergies Allergy/AdvReac Type Severity Reaction Status Date / Time No Known Allergies Allergy Verified 02/19/24 08:21 Review of Systems 2 Const: Denies: fever(s), chills, body aches or change in appetite ENMT: Denies: throat pain or dental pain Card: Denies: chest pain Resp: Reports: dyspnea and non-productive cough GI: Denies: abdominal pain, nausea, vomiting or diarrhea Musc: Denies: neck pain or back pain Skin/Breast: Denies: rash Neuro: Denies: headache(s) PFSH ED 2 PFSH: Medical History CHF exacerbation Chronic hypoxemic respiratory failure Acute on chronic hypoxic respiratory failure Sleep walking Asthma-COPD overlap syndrome Degenerative lumbar disc History of compression fracture of spine Left leg DVT 07/2022 Cognitive impairment GERD (gastroesophageal reflux disease) Tremor Chronic neck pain Pulmonary emphysema with fibrosis of lung Surgical History History of cataract extraction bilateral History of tonsillectomy Hx of appendectomy Family History Other Dementia Stroke Denies family history of Diabetes CAD (coronary artery disease) Clotting disorder Hyperlipidemia Psychiatric illness Chronic kidney disease (CKD) Suicide Anesthesia complication Bleeding disorder Family history of premature coronary artery disease Lung disease Cancer Hypertension Social History Smoking and tobacco/nicotine status: former use of tobacco/nicotine Quit status (tobacco/nicotine): has quit using Year quit tobacco: 2017 Former quit date comment: 1pack per month x 2 years Second hand smoke exposure: No Alcohol intake: never Substance/Drug Use: never Physical Exam 2 Const: COMMON NORMALS: patient oriented x3 HENMT: COMMON NORMALS: normocephalic and atraumatic HEAD & SCALP: n ormocephalic and atraumatic Neck/C-Spine: COMMON NORMALS: full ROM and supple Chest: COMMONS NORMALS: normal inspection of the chest Resp: COMMON NORMALS: No retractions and No use of accessory muscles A USCULTATION: wheezes Cardio: COMMON NORMALS: regular rate, regular rhythm and No murmurs present (Cardio) RATE: regular rate RHYTHM: regular rhythm GI: COMMON NORMALS: Normal to inspection, nondistended, normoactive bowel sounds present, Soft to palpation, non-tender and no masses PALPATION: Yes Soft to palpation Extremity: COMMON NORMALS: normal to inspection and full ROM Neuro: COMMON NORMALS: patient oriented x3, moves all extremities and no focal motor deficits Psych: COMMON NORMALS: mental status grossly normal, Normal thought process present and cooperative THOUGHT PROCESS: Normal thought process present Skin: COMMON NORMALS: no rashes or lesions noted and no wounds GENERAL SKIN EXAM: no rashes or lesions noted Course 2 Vital Signs: Vital signs: Vital Signs Temperature 97.8 F 06/23/24 17:57 Pulse Rate 89 06/23/24 19:01 Respiratory Rate 24 H 06/23/24 18:26 Blood Pressure 148/96 06/23/24 19:01 Pulse Oximetry 91 06/23/24 19:01 Oxygen Delivery Me thod Room Air 06/23/24 18:26 Oxygen Flow Rate 4 06/23/24 18:09 MDM - SOB/Dyspnea Medical Decision Making Patient presents here with cough some dyspnea patient's been 95% here on his home oxygen of 3 L. X-ray shows no pneumonia blood works normal he does have COVID I did offer him admission he states he feels improved would like to go home we will prescribe him Racielkylee is to return if worsening Medical Records I reviewed the patient's medical records. Lab Data I reviewed the patient's lab results. 06/23/24 18:10 06/23/24 18:10 Labs/Radiology: Radiology Impressions Chest X-Ray 06/23/24 17:58 IMPRESSION: 1. No acute cardiopulmonary abnormality. If there is ongoing clinical concern, consider correlation with CT. Laboratory Results WBC 7.90 10^3/uL (3.29-11.43) 06/23/24 18:10 RBC 4.36 10^6/uL (3.85-5.65) 06/23/24 18:10 Hgb 12.00 g/dL (11.27-16.99) 06/23/24 18:10 Hct 39.1 % (37-53) 06/23/24 18:10 MCV 89.7 fl (82-101) 06/23/24 18:10 MCH 27.5 pg (27-33) 06/23/24 18:10 MCHC 30.7 g/dL (30-55) 06/23/24 18:10 RDW 14.5 % (12.1-15.1) 06/23/24 18:10 Plt Count 145 10^3/cmm (157-399) L 06/23/24 18:10 MPV 9.9 fL (7.4-10.4) 06/23/24 18:10 Neut % (Auto) 78.4 % 06/23/24 18:10 Lymph % (Auto) 13.4 % 06/23/24 18:10 [place] % (Auto) 7.7 % 06/23/24 18:10 Eos % (Auto) 0.0 % 06/23/24 18:10 Baso % (Auto) 0.1 % 06/23/24 18:10 Neut # (Auto) 6.19 10^3/uL (1.8-7.7) 06/23/24 18:10 Lymph # (Auto) 1.1 10^3/uL (0.8-4.8) 06/23/24 18:10 [place] # (Auto) 0.6 10^3/uL (0.2-0.9) 06/23/24 18:10 Eos # (Auto) 0.0 10^3/uL (0.0-0.8) 06/23/24 18:10 Baso # (Auto) 0.0 10^3/uL (0.0-0.1) 06/23/24 18:10 Nucleated RBC % (auto) 0 % 06/23/24 18:10 Nucleated RBCs # 0.0 /100WBC 06/23/24 18:10 Specimen Type Arterial 06/23/24 17:57 Sample Site Radial, left 06/23/24 17:57 ABG pH 7.40 (7.35-7.45) 06/23/24 17:57 ABG pCO2 50.3 mmHg (35-45) H 06/23/24 17:57 ABG pO2 74.0 mmHg (80.0-100.0) L 06/23/24 17:57 ABG PO2/FiO2 Ratio 205 06/23/24 17:57 ABG HCO3 31.1 mmol/L (22-26) H 06/23/24 17:57 ABG Base Excess 5.2 mmol/L (-2.0-2.0) H 06/23/24 17:57 Wilmer Test Pos 06/23/24 17:57 Hematocrit 38.1 % (42-52) L 06/23/24 17:57 Hgb O2 Saturation 94.1 % (95-100) L 06/23/24 17:57 Carboxyhemoglobin 1.0 %THgb (0.4-20.1) 06/23/24 17:57 Methemoglobin 0.4 % (0.4-1.5) 06/23/24 17:57 Total Hemoglobin 12.4 g/dL (14-18) L 06/23/24 17:57 O2 Delivery Device Nc 06/23/24 17:57 O2 Liters/Min 4.0 % 06/23/24 17:57 FiO2 36.0 % 06/23/24 17:57 Mail Carrier And Clerk ID [place] 06/23/24 17:57 Sodium 140 mmol/L (136-145) 06/23/24 18:10 Potassium 3.7 mmol/L (3.5-5.1) 06/23/24 18:10 Chloride 100 mmol/L (98-107) 06/23/24 18:10 Carbon Dioxide 29 mmol/L (22-29) 06/23/24 18:10 Anion Gap 14.7 (5-19) 06/23/24 18:10 BUN 29 mg/dL (8-23) H 06/23/24 18:10 Creatinine 1.0 mg/dL (0.7-1.2) 06/23/24 18:10 GFR Calculation 75.0 mL/min (90-130) L 06/23/24 18:10 Glucose 194 mg/dL (65-115) H 06/23/24 18:10 Calculated Osmolality 301 mOsm/kg (285-295) H 06/23/24 18:10 Calcium 8.4 mg/dL (8.5-10.5) L 06/23/24 18:10 Total Bilirubin 0.2 mg/dL (0.15-1.2) 06/23/24 18:10 AST 22 U/L (0-40) 06/23/24 18:10 ALT 42 U/L (0-41) H 06/23/24 18:10 Alkaline Phosphatase 82 U/L (40-130) 06/23/24 18:10 NT-Pro-B Natriuret Pep 138 pg/mL (0-125) H 06/23/24 18:10 Total Protein 6.4 g/dL (6.6-8.7) L 06/23/24 18:10 Albumin 3.6 g/dL (3.5-5.2) 06/23/24 18:10 Globulin 2.8 g/dL (1.3-4.6) 06/23/24 18:10 Coronavirus (PCR) Positive (Negative) A 06/23/24 18:30 Influenza A (PCR) Negative (Negative) 06/23/24 18:30 Influenza Type B (PCR) Negative (Negative) 06/23/24 18:30 RSV (PCR) Negative (Negative) 06/23/24 18:30 All radiology interpretation(s) finalized by discharge EKG Data EKG 1: I personally reviewed and interpreted this EKG as follows: EKG Interpretation Date: 06/23/24 EKG interpretation time: 17:56 Interpretation: nsr hr [address] elevation qrs 78 qtc 386 Discharge Plan Discharge Patient Disposition: Home Clinical Impression: COVID-19 Condition: Stable Prescriptions: New Paxlovid 300 mg (150 mg x 2)-100 mg tablets,dose pack See Rx Instructions .ROUTE .COMPLEX Qty: 30 0RF Rx Instructions: take TWO 150 mg tablets of nirmatrelvir with ONE 100 mg tablet of ritonavir twice daily for 5 days No Action (DME) wheelchair See Rx Instructions .Route .MEDSUPPLY Qty: 1 0RF Rx Instructions: As directed (DME) hsopital bed See Rx Instructions .Route .MEDSUPPLY Qty: 1 0RF Rx Instructions: As directed olanzapine [Zyprexa] 2.5 mg tablet 2.5 mg PO DAILY Qty: 90 1RF primidone 50 mg tablet 100 mg PO BEDTIME levalbuterol tartrate 45 mcg/actuation HFA aerosol inhaler 2 inh inhalation Q6H PRN (Reason: shortness of breath or wheezing) Qty: 15 5RF (DME) A7005 Nebulizer Set See Rx Instructions .Route .MEDSUPPLY Qty: 1 0RF Rx Instructions: As directed nitroglycerin 0.4 mg tablet, sublingual See Rx Instructions .ROUTE .COMPLEX Qty: 25 0RF Dose Instruction: DISSOLVE ONE TABLET UNDER THE TONGUE EVERY 5 MINUTES NEEDED FOR CHEST PAIN. DO NOT EXCEED A TOTAL OF 3 DOSES IN 15 MINUTES Rx Instructions: DISSOLVE ONE TABLET UNDER THE TONGUE EVERY 5 MINUTES NEEDED FOR CHEST PAIN. DO NOT EXCEED A TOTAL OF 3 DOSES IN 15 MINUTES Tezspire 210 mg/1.91 mL (110 mg/mL) pen injector 210 mg SUBCUT .Q 4 weeks Qty: 1.91 11RF montelukast 10 mg tablet 10 mg PO DAILY Qty: 30 1RF citalopram 40 mg tablet 40 mg PO DAILY Qty: 30 0RF gabapentin 300 mg capsule See Rx Instructions .ROUTE .COMPLEX Qty: 90 0RF Dose Instruction: TAKE 1 CAPSULE BY MOUTH EVERY 8 HOURS Rx Instructions: TAKE 1 CAPSULE BY MOUTH EVERY 8 HOURS formoterol fumarate [Perforomist] 20 mcg/2 mL solution for nebulization 2 ml inhalation BID Qty: 120 6RF bumetanide 1 mg tablet 1 mg PO DAILY Qty: 60 1RF potassium chloride 10 mEq tablet extended release 10 meq PO DAILY Qty: 30 2RF Airsupra 90-80 mcg/actuation HFA aerosol inhaler 1 - 2 inh INHALATION .Q4-6H PRN (Reason: Shortness Of Breath) pantoprazole 40 mg tablet,delayed release (DR/EC) 40 mg PO DAILY prednisone 5 mg tablet 10 mg PO DAILY PRN (Reason: asthma) Hold Instructions: Resume on 04/19/24. hold while on steroid taper atorvastatin 20 mg tablet 20 mg PO DAILY isosorbide mononitrate 30 mg tablet extended release 24 hr 60 mg PO DAILY Qty: 60 0RF metoprolol tartrate 25 mg tablet 12.5 mg PO Q12H Qty: 30 0RF ipratropium-albuterol 0.5 mg-3 mg(2.5 mg base)/3 mL Solution For Nebulization 3 ml INHALATION Q6H PRN (Reason: Shortness Of Breath Or Wheezing) prednisone 10 mg tablet See Rx Instructions .ROUTE .COMPLEX Qty: 30 0RF Rx Instructions: 40 mg daily x3d 20 mg daily x3d 10 mg daily x3d 5 mg daily thereafter Discharge Orders: Discharge ED (Routine); Ordered 06/23/24 Ordered By: Bereket Caruso Referrals: Katherine Horner NP [Primary Care Provider] - 4-7 days Discharge Diet: Advance as tolerated Discharge Activity: Resume usual activity Patient Instructions: COVID-19 (Coronavirus Disease 2019) (ED) Coding Level of Care Code ED Prop Drawer for [place]
[2024-06-23] MEDS: albuterol 2.5 mg/3 mL Neb INHALATION (18:08)
[2024-06-23] MEDS: ipratropium-albuterol 3 mL Neb INHALATION (18:08)
[2024-06-23 18:09] VITALS: PULSE 93; RESP 22; O2SAT 96
[2024-06-23 18:12] LABS: ABG PCO2 50.3 mmHg (35-45); Arterial Blood Gas Hematocrit 38.1 % (42-52); Base Excess ABG 5.2 mmol/L (-2.0-2.0); Blood Gas Allen Test Pos; Blood Gas Sample Type Arterial; HCO3 ABG 31.1 mmol/L (22-26); HGB O2 Sat 94.1 % (95-100); Methemoglobin 0.4 % (0.4-1.5); Total Hemoglobin 12.4 g/dL (14-18)
[2024-06-23 18:13] LABS: Blood Gas Operator Identificat MONRO; Blood Gas Sample Site Radial, left; Oxygen Device NC; PO2 FiO2 Ratio Arterial Blood 205
[2024-06-23 18:19] LABS: Basophils % 0.1 %; Hematocrit 39.1 % (37-53); Lymphocytes # 1.1 10^3/uL (0.8-4.8); Lymphocytes % 13.4 %; Mean Corpuscular HGB Conc 30.7 g/dL (30-55); Mean Corpuscular Hemoglobin 27.5 pg (27-33); Mean Corpuscular Volume 89.7 fl (82-101); Mean Platelet Volume 9.9 fL (7.4-10.4); Monocytes # 0.6 10^3/uL (0.2-0.9); Monocytes % 7.7 %; Neutrophils # 6.19 10^3/uL (1.8-7.7); Neutrophils % 78.4 %; Nucleated Red Blood Cells % 0 %; Platelet Count 145 10^3/cmm (157-399); Red Blood Count 4.36 10^6/uL (3.85-5.65); Red Cell Distribution Width 14.5 % (12.1-15.1)
[2024-06-23] MEDS: methylPREDNISolone sod succ 125 mg/2 mL INJ IV (18:20)
[2024-06-23 18:26] VITALS: BP 134/85; PULSE 91; RESP 24; O2SAT 91
[2024-06-23 18:44] LABS: Alanine Aminotransferase 42 U/L (0-41); Albumin Level 3.6 g/dL (3.5-5.2); Alkaline Phosphatase 82 U/L (40-130); Anion Gap 14.7 (5-19); Aspartate Amino Transferase 22 U/L (0-40); Blood Urea Nitrogen 29 mg/dL (8-23); Calcium 8.4 mg/dL (8.5-10.5); Carbon Dioxide 29 mmol/L (22-29); Chloride 100 mmol/L (98-107); Creatinine Clr Calc Pharmacy 93.9683; Globulin 2.8 g/dL (1.3-4.6); Glucose 194 mg/dL (65-115); NT Pro B Type Natriuretic Pept 138 pg/mL (0-125); Osmolality Calculated 301 mOsm/kg (285-295); Potassium 3.7 mmol/L (3.5-5.1); Sodium 140 mmol/L (136-145); Total Bilirubin 0.2 mg/dL (0.15-1.2); Total Protein 6.4 g/dL (6.6-8.7)
[2024-06-23 19:01] VITALS: BP 148/96; PULSE 89; O2SAT 91
[2024-06-23 19:15] LABS: Influenza A NEGATIVE (Negative); Influenza B NEGATIVE (Negative); Respiratory Syncytial Virus Ce NEGATIVE (Negative)
[2024-06-23 19:20] LABS: Covid PCR Positive (Negative)
[2024-06-23 21:06] VITALS: BP 150/106; PULSE 77; O2SAT 95
[2024-06-23 21:11] VITALS: BP 148/87; PULSE 76; RESP 20; O2SAT 94
== END 2024-06-23 21:16 | disposition home or self-care (01) ==
PROVIDERS: Emergency Provider Emergency Medicine; PCP Nurse Practitioner Family
DX: U07.1 COVID-19 (principal); Z87.891 Personal history of nicotine dependence; I50.9 Heart failure, unspecified; J44.9 Chronic obstructive pulmonary disease, unspecified
CPT/HCPCS: 0241U; 36415; 36600; 71045; 80053; 82805; 83880; 85025; 93005; 94640; 96374; 99285; J2919; J7613

== ENCOUNTER 2024-06-24 23:47 | Inpatient (IN) | payer MEDICARE, MEDICAID, SELFPAY ==
[2024-06-24 23:48] VITALS: BP 131/102; PULSE 107; RESP 28; TEMP 39.2; O2SAT 90; BMI 25.9
[2024-06-24 23:54] VITALS: BP 131/102; PULSE 104; RESP 18; O2SAT 94
--- NOTE | 2024-06-24 23:55 | ECG_ITS ---
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 Measurements Intervals [place] Rate: 98 P: 56 MA: 230 QRS: -21 QRSD: 88 T: 55 QT: 319 QTc: 407 Interpretive Statements SINUS RHYTHM WITH FIRST DEGREE AV BLOCK BORDERLINE LEFT AXIS DEVIATION [QRS AXIS < -20] Compared to ECG 06/23/2024 17:56:01 No significant changes Electronically Signed On 06-27-2024 18:59:42 CDT by Kedar Coyle M.D. [email or web address]
[2024-06-25] VITALS (17 sets, daily range): BP systolic 108–144; BP diastolic 60–117; PULSE 64–113; RESP 15–26; TEMP 36.4–37.4; O2SAT 92–96
--- NOTE | 2024-06-25 00:03 | XRR_ITS ---
PROCEDURE INFORMATION: Exam: XR Chest Exam date and time: 06/25/2024 12:11 AM Age: 64 years old Clinical indication: Shortness of breath TECHNIQUE: Imaging protocol: Radiologic exam of the chest. Views: 1 view. COMPARISON: CR (CHEST, ) 06/23/2024 6:04 PM FINDINGS: Lungs: No large focal consolidation. Pleural spaces: No large pleural effusion. No distinct pneumothorax. Heart/Mediastinum: Cardiomediastinal silhouette is midline and stable in size. Bones/joints: Osseous structures are unchanged. XR/XR chest 1V portable [id number] IMPRESSION: No acute cardiopulmonary findings.
--- NOTE | 2024-06-25 00:06 | W.ED.SOB ---
HPI - SOB/Dyspnea General: Chief Complaint: Shortness of Breath/Dyspnea Stated Complaint: SOB Time Seen by Provider: 06/24/24 23:56 History of Present Illness: HPI Narrative: 64-year-old male with a history of CHF, COPD, seen yesterday for an asthma exacerbation, diagnosed with COVID. He comes back tonight stating he is having increased shortness of breath. Patient states he has been sick for about a week, gradually worsening. Patient did not start his prednisone taper. He states he took 1 tablet of his regular prednisone which on his list is 5 mg. He states he has had a cough which has been productive of primarily clear sputum. He does have a fever of 102.5. Patient does have increased shortness of breath with laying flat as well as exertion. He states he is given himself breathing treatments every 2 hours today without improvement. He denies chest pain. He has not taken anything for his fever. States he has been hospitalized numerous times for asthma. He is chronically on 4 L of oxygen per nasal cannula. He also used his inhalers today Associated symptoms: Reports chest congestion; Deny abdominal pain, chest pain, fever(s), nausea or vomiting Related Data Home Medications Medication Instructions Recorded Confirmed primidone 50 mg tablet 100 mg PO BEDTIME 12/01/22 06/13/24 pantoprazole 40 mg tablet,delayed 40 mg PO DAILY 01/31/24 06/13/24 release prednisone 5 mg tablet 10 mg PO DAILY PRN asthma 03/27/24 06/13/24 atorvastatin 20 mg tablet 20 mg PO DAILY 03/29/24 06/13/24 ipratropium 0.5 mg-albuterol 3 mg 3 ml inhalation Q6H PRN Shortness 04/02/24 06/13/24 (2.5 mg base)/3 mL nebulization Of Breath Or Wheezing soln albuterol 90 mcg-budesonide 80 1 - 2 inh inhalation .Q4-6H PRN 06/13/24 06/13/24 mcg/actuation HFA aerosol inhaler Shortness Of Breath (Airsupra) Previous Rx's Medication Instructions Recorded hsopital bed #1 ea 08/28/22 wheelchair #1 ea 08/28/22 A7005 Nebulizer Set #1 ea 10/13/23 olanzapine 2.5 mg tablet (Zyprexa) 2.5 mg PO DAILY #90 tabs 11/05/23 levalbuterol tartrate 45 2 inh inhalation Q6H PRN shortness 02/09/24 mcg/actuation aerosol inhaler of breath or wheezing #15 grams nitroglycerin 0.4 mg sublingual See Rx Instructions .Route 03/16/24 tablet .COMPLEX #25 tabs tezepelumab-ekko 210 mg/1.91 mL 210 mg (1.91 mL) SUBCUT .Q 4 weeks 03/22/24 (110 mg/mL) subcutaneous pen #1.91 mL injector (Tezspire) isosorbide mononitrate 30 mg 60 mg (2 x 30 mg) PO DAILY #60 tabs 03/29/24 tablet,extended release 24 hr metoprolol tartrate 25 mg tablet 12.5 mg (1/2 x 25 mg) PO Q12H #30 03/29/24 tabs citalopram 40 mg tablet 40 mg PO DAILY #30 tabs 05/25/24 gabapentin 300 mg capsule See Rx Instructions .Route 05/25/24 .COMPLEX #90 caps montelukast 10 mg tablet 10 mg PO DAILY #30 tabs 05/25/24 prednisone 10 mg tablet See Rx Instructions .Route 06/08/24 .COMPLEX #30 tabs bumetanide 1 mg tablet 1 mg PO DAILY #60 tabs 06/13/24 potassium chloride 10 mEq 10 meq PO DAILY #30 tabs 06/13/24 tablet,extended release formoterol fumarate 20 mcg/2 mL 2 ml inhalation BID #120 mL 06/16/24 solution for nebulization (Perforomist) nirmatrelvir 300 mg (150 mg See Rx Instructions PO .COMPLEX 06/23/24 x2)-ritonavir 100 mg tablet,dose #30 ea pack (Paxlovid) Allergies Allergy/AdvReac Type Severity Reaction Status Date / Time No Known Allergies Allergy Verified 02/19/24 08:21 Review of Systems Const: Denies: fever(s), chills, body aches or change in appetite ENMT: Denies: throat pain or dental pain Card: Denies: chest pain Resp: Reports: dyspnea, productive cough, wheezing and chest congestion GI: Denies: abdominal pain, nausea, vomiting or diarrhea Musc: Denies: neck pain or back pain Skin/Breast: Denies: rash Neuro: Denies: headache(s) PFSH ED PFSH: Medical History CHF exacerbation Chronic hypoxemic respiratory failure Acute on chronic hypoxic respiratory failure Sleep walking Asthma-COPD overlap syndrome Degenerative lumbar disc History of compression fracture of spine Left leg DVT 07/2022 Cognitive impairment GERD (gastroesophageal reflux disease) Tremor Chronic neck pain Pulmonary emphysema with fibrosis of lung Surgical History History of cataract extraction bilateral History of tonsillectomy Hx of appendectomy Family History Other Dementia Stroke Denies family history of Diabetes CAD (coronary artery disease) Clotting disorder Hyperlipidemia Psychiatric illness Chronic kidney disease (CKD) Suicide Anesthesia complication Bleeding disorder Family history of premature coronary artery disease Lung disease Cancer Hypertension Social History Smoking and tobacco/nicotine status: former use of tobacco/nicotine Quit status (tobacco/nicotine): has quit using Year quit tobacco: 2017 Former quit date comment: 1pack per month x 2 years Second hand smoke exposure: No Alcohol intake: never Substance/Drug Use: never Physical Exam Const: COMMON NORMALS: patient oriented x3 HENMT: COMMON NORMALS: normocephalic and atraumatic HEAD & SCALP: normocephalic and atraumatic Neck/C-Spine: COMMON NORMALS: full ROM and supple Chest: COMMONS NORMALS: normal inspection of the chest Resp: COMMON NORMALS: No use of accessory muscles EFFORT & INSPECTION: Yes able to speak in complete sentences, Yes tachypneic, Yes Actively coughing and Yes audible wheezes AUSCULTATION: wheezes expiratory wheezes and throughout and diminished lung sounds Cardio: COMMON NORMALS: regular rate, regular rhythm and No murmurs present (Cardio) RATE: regular rate RHYTHM: regular rhythm GI: COMMON NORMALS: Normal to inspection, nondistended, normoactive bowel sounds present, Soft to palpation, non-tender and no masses PALPATION: Yes Soft to palpation Extremity: COMMON NORMALS: normal to inspection and full ROM Neuro: COMMON NORMALS: patient oriented x3, moves all extremities and no focal motor deficits Psych: COMMON NORMALS: mental status grossly normal, Normal thought process present and cooperative THOUGHT PROCESS: Normal thought process present Skin: COMMON NORMALS: no rashes or lesions noted and no wounds GENERAL SKIN EXAM: no rashes or lesions noted Course ED course: Patient has a history of asthma/COPD, congestive heart failure, diagnosed with COVID yesterday. Presents today with a fever of 1-2.5. Tachycardic. He had an IV placed and labs obtained. Has been given IV Decadron. Chest x-ray per my interpretation shows no infiltrate or effusion, mild cardiomegaly. On his labs, he is hypomagnesemic with a magnesium of 1.5. Give him 2 g of IV magnesium citrate. He does have an elevated lactic acid of 4.0. White blood cell count is normal at 9.3. Patient had been previously given Lasix 40 mg IV. Given the elevated lactic acid, in the face of his congestive heart failure. I will give him a 500 cc fluid bolus and recheck of lactic acid in 2 hours. If the patient is not improving, he will need admission. On arterial blood gas, pH 7.47, pCO2 is 48, pO2 64 not on his baseline 4 L of oxygen. Given elevated lactic acid and his fever, ongoing empirically treating for pneumonia with cefepime 2 g and vancomycin 1250 mg IV. Consultations: Consultation #1: Discussed with the hospitalist, dr. Shore, for admission Vital Signs: Vital signs: Vital Signs Temperature 102.5 F H 06/24/24 23:48 Pulse Rate 113 H 06/25/24 00:45 Respiratory Rate 25 H 06/25/24 00:45 Blood Pressure 144/117 06/25/24 00:45 Pulse Oximetry 94 06/25/24 00:45 Oxygen Delivery Me thod Nasal Cannula 06/25/24 00:45 Oxygen Flow Rate 4 06/25/24 00:45 MDM - SOB/Dyspnea Medical Decision Making 64-year-old male with a history of COPD, CHF, recent diagnosis of COVID who presents tonight with increased shortness of breath despite taking his nebulizer every 2 hours today. He did not take a prednisone boost as prescribed. He took his baseline 5 mg daily. He states he has had a persistent cough and fever and increasing shortness of breath. Patient does have diffuse expiratory wheezes in all lung antonio. Will give him IV Decadron 10 mg and give him an hour-long DuoNeb nebulizer treatment. Will give him 40 mg of Lasix and repeat his labs and a chest x-ray. He is not hypoxic, he is on his 4 L of oxygen, saturating 93 to 95%. He is able to speak in full sentences. He is coughing up what looks like saliva Patient is persistently tachycardic despite 500 cc IV fluid bolus, fever management. Given the elevated lactic acid, concern for possible sepsis. The patient has been given an hour-long nebulizer treatment and IV Decadron with continued wheezing but improved air movement. Likely this is from COVID and a COPD exacerbation. Certainly concern for sepsis with tachycardia and elevated lactic acid. Blood culture sent. Will give the patient IV cefepime and vancomycin. Plan for admission will discuss with the hospitalist. Medical Records Reviewed records from yesterday. The patient did test positive for COVID. Chest x-ray per the radiologist showed no infiltrate. Chest x-ray today appears similar Lab Data Patient does have a normal white blood cell count of 9.33. He has an elevated lactic acid of 4.0. On arterial blood gas, pCO2 is 48, pO2 of 64 on on his baseline 4 L. He is hypomagnesemic with a magnesium of 1.5. IV magnesium has been ordered. 06/25/24 00:00 06/25/24 00:00 Labs/Radiology: Radiology Impressions Chest X-Ray 06/25/24 00:03 IMPRESSION: No acute cardiopulmonary findings. Laboratory Results WBC 9.33 10^3/uL (3.29-11.43) 06/25/24 00:00 RBC 4.44 10^6/uL (3.85-5.65) 06/25/24 00:00 Hgb 12.30 g/dL (11.27-16.99) 06/25/24 00:00 Hct 40.1 % (37-53) 06/25/24 00:00 MCV 90.3 fl (82-101) 06/25/24 00:00 MCH 27.7 pg (27-33) 06/25/24 00:00 MCHC 30.7 g/dL (30-55) 06/25/24 00:00 RDW 14.6 % (12.1-15.1) 06/25/24 00:00 Plt Count 171 10^3/cmm (157-399) 06/25/24 00:00 MPV 10.6 fL (7.4-10.4) H 06/25/24 00:00 Neut % (Auto) 81.8 % 06/25/24 00:00 Lymph % (Auto) 10.1 % 06/25/24 00:00 Greenlee % (Auto) 7.7 % 06/25/24 00:00 Eos % (Auto) 0.0 % 06/25/24 00:00 Baso % (Auto) 0.1 % 06/25/24 00:00 Neut # (Auto) 7.63 10^3/uL (1.8-7.7) 06/25/24 00:00 Lymph # (Auto) 0.9 10^3/uL (0.8-4.8) 06/25/24 00:00 Greenlee # (Auto) 0.7 10^3/uL (0.2-0.9) 06/25/24 00:00 Eos # (Auto) 0.0 10^3/uL (0.0-0.8) 06/25/24 00:00 Baso # (Auto) 0.0 10^3/uL (0.0-0.1) 06/25/24 00:00 Nucleated RBC % (auto) 0 % 06/25/24 00:00 Nucleated RBCs # 0.0 /100WBC 06/25/24 00:00 Specimen Type Arterial 06/25/24 00:25 Sample Site Brachial, right 06/25/24 00:25 ABG pH 7.47 (7.35-7.45) H 06/25/24 00:25 ABG pCO2 48.0 mmHg (35-45) H 06/25/24 00:25 ABG pO2 64.1 mmHg (80.0-100.0) L 06/25/24 00:25 ABG HCO3 34.8 mmol/L (22-26) H 06/25/24 00:25 ABG Base Excess 9.7 mmol/L (-2.0-2.0) H 06/25/24 00:25 Wilmer Test N/a 06/25/24 00:25 Hematocrit 38.8 % (42-52) L 06/25/24 00:25 Hgb O2 Saturation 93.0 % (95-100) L 06/25/24 00:25 Carboxyhemoglobin 1.1 %THgb (0.4-20.1) 06/25/24 00:25 Methemoglobin 0.3 % (0.4-1.5) L 06/25/24 00:25 Total Hemoglobin 12.7 g/dL (14-18) L 06/25/24 00:25 O2 Delivery Device Nc 06/25/24 00:25 O2 Liters/Min 3.5 % 06/25/24 00:25 Planning Supervisor ID Huy 06/25/24 00:25 Sodium 140 mmol/L (136-145) 06/25/24 00:00 Potassium 3.6 mmol/L (3.5-5.1) 06/25/24 00:00 Chloride 98 mmol/L (98-107) 06/25/24 00:00 Carbon Dioxide 30 mmol/L (22-29) H 06/25/24 00:00 Anion Gap 15.6 (5-19) 06/25/24 00:00 BUN 26 mg/dL (8-23) H 06/25/24 00:00 Creatinine 0.9 mg/dL (0.7-1.2) 06/25/24 00:00 GFR Calculation 84.7 mL/min (90-130) L 06/25/24 00:00 Glucose 104 mg/dL (65-115) 06/25/24 00:00 Calculated Osmolality 295 mOsm/kg (285-295) 06/25/24 00:00 Lactic Acid 4.0 mmol/L (0.5-2.2) H 06/25/24 00:00 Calcium 8.4 mg/dL (8.5-10.5) L 06/25/24 00:00 Magnesium 1.5 mg/dL (1.7-2.3) L 06/25/24 00:00 Total Bilirubin 0.2 mg/dL (0.15-1.2) 06/25/24 00:00 AST 26 U/L (0-40) 06/25/24 00:00 ALT 42 U/L (0-41) H 06/25/24 00:00 Alkaline Phosphatase 82 U/L (40-130) 06/25/24 00:00 NT-Pro-B Natriuret Pep 226 pg/mL (0-125) H 06/25/24 00:00 Total Protein 6.6 g/dL (6.6-8.7) 06/25/24 00:00 Albumin 3.8 g/dL (3.5-5.2) 06/25/24 00:00 Globulin 2.8 g/dL (1.3-4.6) 06/25/24 00:00 XR interpretation done by ED provider, pending radiology final review ED provider radiology interpretation(s): Chest x-ray per my interpretation shows cardiomegaly, no significant infiltrate or effusion EKG Data EKG 1: EKG Interpretation Date: 06/24/24 EKG interpretation time: 23:55 Interpretation: Normal sinus rhythm, no ST segment elevation, first-degree AV block, no acute ischemic changes per my interpretation. Critical Care Time Critical Care Time: Critical Care Time: Yes Total Critical Care Time: 45 Attestation: Critical care time includes evaluation of patient, repeat evaluation, ordering of tests and treatments, evaluation and interpretation of the results as well as reviewing old charts and discussion with the hospitalist for admission Discharge Plan Discharge Patient Disposition: Admitted As Inpatient Clinical Impression: COVID-19, Sepsis, COPD with acute exacerbation Condition: Stable Prescriptions: No Action (DME) wheelchair See Rx Instructions .Route .MEDSUPPLY Qty: 1 0RF Rx Instructions: As directed (DME) hsopital bed See Rx Instructions .Route .MEDSUPPLY Qty: 1 0RF Rx Instructions: As directed olanzapine [Zyprexa] 2.5 mg tablet 2.5 mg PO DAILY Qty: 90 1RF primidone 50 mg tablet 100 mg PO BEDTIME levalbuterol tartrate 45 mcg/actuation HFA aerosol inhaler 2 inh inhalation Q6H PRN (Reason: shortness of breath or wheezing) Qty: 15 5RF (DME) A7005 Nebulizer Set See Rx Instructions .Route .MEDSUPPLY Qty: 1 0RF Rx Instructions: As directed nitroglycerin 0.4 mg tablet, sublingual See Rx Instructions .ROUTE .COMPLEX Qty: 25 0RF Dose Instruction: DISSOLVE ONE TABLET UNDER THE TONGUE EVERY 5 MINUTES NEEDED FOR CHEST PAIN. DO NOT EXCEED A TOTAL OF 3 DOSES IN 15 MINUTES Rx Instructions: DISSOLVE ONE TABLET UNDER THE TONGUE EVERY 5 MINUTES NEEDED FOR CHEST PAIN. DO NOT EXCEED A TOTAL OF 3 DOSES IN 15 MINUTES Tezspire 210 mg/1.91 mL (110 mg/mL) pen injector 210 mg SUBCUT .Q 4 weeks Qty: 1.91 11RF montelukast 10 mg tablet 10 mg PO DAILY Qty: 30 1RF citalopram 40 mg tablet 40 mg PO DAILY Qty: 30 0RF gabapentin 300 mg capsule See Rx Instructions .ROUTE .COMPLEX Qty: 90 0RF Dose Instruction: TAKE 1 CAPSULE BY MOUTH EVERY 8 HOURS Rx Instructions: TAKE 1 CAPSULE BY MOUTH EVERY 8 HOURS formoterol fumarate [Perforomist] 20 mcg/2 mL solution for nebulization 2 ml inhalation BID Qty: 120 6RF bumetanide 1 mg tablet 1 mg PO DAILY Qty: 60 1RF potassium chloride 10 mEq tablet extended release 10 meq PO DAILY Qty: 30 2RF Airsupra 90-80 mcg/actuation HFA aerosol inhaler 1 - 2 inh INHALATION .Q4-6H PRN (Reason: Shortness Of Breath) Paxlovid 300 mg (150 mg x 2)-100 mg tablets,dose pack See Rx Instructions .ROUTE .COMPLEX Qty: 30 0RF Rx Instructions: take TWO 150 mg tablets of nirmatrelvir with ONE 100 mg tablet of ritonavir twice daily for 5 days pantoprazole 40 mg tablet,delayed release (DR/EC) 40 mg PO DAILY prednisone 5 mg tablet 10 mg PO DAILY PRN (Reason: asthma) Hold Instructions: Resume on 04/19/24. hold while on steroid taper atorvastatin 20 mg tablet 20 mg PO DAILY isosorbide mononitrate 30 mg tablet extended release 24 hr 60 mg PO DAILY Qty: 60 0RF metoprolol tartrate 25 mg tablet 12.5 mg PO Q12H Qty: 30 0RF ipratropium-albuterol 0.5 mg-3 mg(2.5 mg base)/3 mL Solution For Nebulization 3 ml INHALATION Q6H PRN (Reason: Shortness Of Breath Or Wheezing) prednisone 10 mg tablet See Rx Instructions .ROUTE .COMPLEX Qty: 30 0RF Rx Instructions: 40 mg daily x3d 20 mg daily x3d 10 mg daily x3d 5 mg daily thereafter Referrals: Katherine Horner NP [Primary Care Provider] - Coding Level of Care Code ED [employer] Att[employer] for Janet Nj
[2024-06-25] MEDS: acetaminophen 325 mg Tablet 975 MG PO (00:14)
[2024-06-25] MEDS: FUROsemide 10 mg/mL SDV 4mL 40 MG IVP (00:15)
[2024-06-25] MEDS: dexamethasone 10 mg/mL INJ IVP (00:17)
[2024-06-25] MEDS: ipratropium-albuterol 3 mL Neb 9 ML INHALATION (00:25)
[2024-06-25 00:34] LABS: Basophils % 0.1 %; Hematocrit 40.1 % (37-53); Lymphocytes # 0.9 10^3/uL (0.8-4.8); Lymphocytes % 10.1 %; Mean Corpuscular HGB Conc 30.7 g/dL (30-55); Mean Corpuscular Hemoglobin 27.7 pg (27-33); Mean Corpuscular Volume 90.3 fl (82-101); Mean Platelet Volume 10.6 fL (7.4-10.4); Monocytes # 0.7 10^3/uL (0.2-0.9); Monocytes % 7.7 %; Neutrophils # 7.63 10^3/uL (1.8-7.7); Neutrophils % 81.8 %; Nucleated Red Blood Cells % 0 %; Platelet Count 171 10^3/cmm (157-399); Red Blood Count 4.44 10^6/uL (3.85-5.65); Red Cell Distribution Width 14.6 % (12.1-15.1); White Blood Count 9.33 10^3/uL (3.29-11.43)
[2024-06-25 00:37] LABS: ABG PH Result 7.47 (7.35-7.45); Arterial Blood Gas Hematocrit 38.8 % (42-52); Base Excess ABG 9.7 mmol/L (-2.0-2.0); Blood Gas Sample Type Arterial; Carboxyhemoglobin 1.1 %THgb (0.4-20.1); HCO3 ABG 34.8 mmol/L (22-26); Methemoglobin 0.3 % (0.4-1.5); PO2 ABG 64.1 mmHg (80.0-100.0); Total Hemoglobin 12.7 g/dL (14-18)
[2024-06-25 00:39] LABS: Blood Gas LPM 3.5 %; Blood Gas Operator Identificat SAM; Blood Gas Sample Site Brachial, right; Oxygen Device NC
[2024-06-25 00:53] LABS: Alanine Aminotransferase 42 U/L (0-41); Albumin Level 3.8 g/dL (3.5-5.2); Alkaline Phosphatase 82 U/L (40-130); Anion Gap 15.6 (5-19); Aspartate Amino Transferase 26 U/L (0-40); Blood Urea Nitrogen 26 mg/dL (8-23); Calcium 8.4 mg/dL (8.5-10.5); Carbon Dioxide 30 mmol/L (22-29); Chloride 98 mmol/L (98-107); Creatinine Clr Calc Pharmacy 83.4093; Globulin 2.8 g/dL (1.3-4.6); Glomerular Filtration Rate 84.7 mL/min (90-130); Glucose 104 mg/dL (65-115); Magnesium 1.5 mg/dL (1.7-2.3); Osmolality Calculated 295 mOsm/kg (285-295); Potassium 3.6 mmol/L (3.5-5.1); Sodium 140 mmol/L (136-145); Total Bilirubin 0.2 mg/dL (0.15-1.2); Total Protein 6.6 g/dL (6.6-8.7)
[2024-06-25 00:56] LABS: NT Pro B Type Natriuretic Pept 226 pg/mL (0-125)
[2024-06-25] MEDS: sodium chloride 0.9% 500 ML 999 ML IV (01:10)
[2024-06-25] MEDS: magnesium sulfate premix 2 GM/50 ML PIGGYBACK IV (01:11)
--- NOTE | 2024-06-25 01:44 | P.HP_ITS ---
Providers/Chief Complaint 2 Admitting Physician: Bhavin Nicholson Primary Care Provider: Katherine Horner NP Chief Complaint: SOB History of Present Illness Pleasant 64-year-old gentleman with history of COPD, CHF, recent admission for pneumonia discharged on 06/13 was diagnosed with COVID-19 yesterday with finding of asthma exacerbation, came into ER for evaluation due to cough productive of yellow sputum, dyspnea, malaise, fever, in ER found to be febrile 102.5, sinus tachycardia 113, tachypneic with respiratory rate 25. Lactic acid is 4. After prior discharge she on 4 L nasal cannula oxygen which he usually uses. Chest x- ray without obvious infiltrate. Review of Systems 2 Const: Reports: fever(s), chills and malaise ENMT: Denies: throat pain Card: Denies: chest pain, edema, pre-syncope or dyspnea on exertion Resp: Reports: productive cough and change in phlegm color; Denies: dyspnea or hemoptysis GI: Denies: abdominal pain, nausea, vomiting, diarrhea, constipation, hematochezia or melena : Denies: flank pain, difficulty urinating, urinary frequency or hematuria Musc: Denies: back pain, joint swelling or joint redness Skin/Breast: Denies: rash or new lesions Neuro: Denies: headache(s) or confusion Medications/Allergies Home Medications Medication Instructions Recorded Confirmed Last Taken Type hsopital bed #1 ea 08/28/22 06/13/24 Unknown Rx wheelchair #1 ea 08/28/22 06/13/24 Unknown Rx primidone 50 mg tablet 100 mg PO BEDTIME 12/01/22 06/13/24 03/28/24 History [id number] Nebulizer Set #1 ea 10/13/23 06/13/24 Unknown Rx olanzapine 2.5 mg tablet (Zyprexa) 2.5 mg PO DAILY #90 tabs 11/05/23 06/13/24 03/29/24 Rx pantoprazole 40 mg tablet,delayed 40 mg PO DAILY 01/31/24 06/13/24 03/29/24 History release levalbuterol tartrate 45 2 inh inhalation Q6H PRN shortness 02/09/24 06/13/24 Unknown Rx mcg/actuation aerosol inhaler of breath or wheezing #15 grams nitroglycerin 0.4 mg sublingual See Rx Instructions .Route 03/16/24 06/13/24 Unknown Rx tablet .COMPLEX #25 tabs tezepelumab-ekko 210 mg/1.91 mL 210 mg (1.91 mL) SUBCUT .Q 4 weeks 03/22/24 06/13/24 Unknown Rx (110 mg/mL) subcutaneous pen #1.91 mL injector (Tezspire) prednisone 5 mg tablet 10 mg PO DAILY PRN asthma 03/27/24 06/13/24 Unknown History atorvastatin 20 mg tablet 20 mg PO DAILY 03/29/24 06/13/24 03/29/24 History isosorbide mononitrate 30 mg 60 mg (2 x 30 mg) PO DAILY #60 tabs 03/29/24 06/13/24 03/29/24 Rx tablet,extended release 24 hr metoprolol tartrate 25 mg tablet 12.5 mg (1/2 x 25 mg) PO Q12H #30 03/29/24 06/13/24 03/29/24 Rx tabs ipratropium 0.5 mg-albuterol 3 mg 3 ml inhalation Q6H PRN Shortness 04/02/24 06/13/24 Unknown History (2.5 mg base)/3 mL nebulization Of Breath Or Wheezing soln citalopram 40 mg tablet 40 mg PO DAILY #30 tabs 05/25/24 06/13/24 Unknown Rx gabapentin 300 mg capsule See Rx Instructions .Route 05/25/24 06/13/24 Unknown Rx .COMPLEX #90 caps montelukast 10 mg tablet 10 mg PO DAILY #30 tabs 05/25/24 06/13/24 Unknown Rx prednisone 10 mg tablet See Rx Instructions .Route 06/08/24 06/13/24 Unknown Rx .COMPLEX #30 tabs albuterol 90 mcg-budesonide 80 1 - 2 inh inhalation .Q4-6H PRN 06/13/24 06/13/24 Unknown History mcg/actuation HFA aerosol inhaler Shortness Of Breath (Airsupra) bumetanide 1 mg tablet 1 mg PO DAILY #60 tabs 06/13/24 Unknown Rx potassium chloride 10 mEq 10 meq PO DAILY #30 tabs 06/13/24 Unknown Rx tablet,extended release formoterol fumarate 20 mcg/2 mL 2 ml inhalation BID #120 mL 06/16/24 Unknown Rx solution for nebulization (Perforomist) nirmatrelvir 300 mg (150 mg See Rx Instructions PO .COMPLEX 06/23/24 Unknown Rx x2)-ritonavir 100 mg tablet,dose #30 ea pack (Paxlovid) Allergies Allergy/AdvReac Type Severity Reaction Status Date / Time No Known Allergies Allergy Verified 02/19/24 08:21 PFSH Acute 2 PFSH: Medical History CHF exacerbation Chronic hypoxemic respiratory failure Acute on chronic hypoxic respiratory failure Sleep walking Asthma-COPD overlap syndrome Degenerative lumbar disc History of compression fracture of spine Left leg DVT 07/2022 Cognitive impairment GERD (gastroesophageal reflux disease) Tremor Chronic neck pain Pulmonary emphysema with fibrosis of lung Surgical History History of cataract extraction bilateral History of tonsillectomy Hx of appendectomy Family History Other Dementia Stroke Denies family history of Diabetes CAD (coronary artery disease) Clotting disorder Hyperlipidemia Psychiatric illness Chronic kidney disease (CKD) Suicide Anesthesia complication Bleeding disorder Family history of premature coronary artery disease Lung disease Cancer Hypertension Social History Smoking and tobacco/nicotine status: former use of tobacco/nicotine Quit status (tobacco/nicotine): has quit using Year quit tobacco: 2017 Former quit date comment: 1pack per month x 2 years Second hand smoke exposure: No Alcohol intake: never Substance/Drug Use: never Vitals/I&O/Wt Last Vital Signs Temp 102.5 F H 06/24/24 23:48 Pulse 113 H 06/25/24 00:45 Resp 25 H 06/25/24 00:45 BP 144/117 06/25/24 00:45 Pulse Ox 94 06/25/24 00:45 O2 Del Method Nasal Cannula 06/25/24 00:45 O2 Flow Rate 4 06/25/24 00:45 Weight last 48 hrs Weight 77.564 kg Physical Exam 2 Const: COMMON NORMALS: patient oriented x3 and alert GENERAL APPEARANCE: c ooperative NUTRITIONAL APPEARANCE: obese ORIENTATION/CONSCIOUSNESS: Yes awake HENMT: COMMON NORMALS: oropharynx normal Neck/C-Spine: COMMON NORMALS: no JVD Resp: AUSCULTATION: diminished lung sounds Cardio: COMMON NORMALS: no JVD, regular rhythm, S1 normal heart sound present, S2 normal heart sound present and No murmurs present (Cardio) RHYTHM: regular rhythm HEART SOUNDS: S1 normal heart sound present and S2 normal heart sound present GI: COMMON NORMALS: Normal to inspection, nondistended, normoactive bowel sounds present, Soft to palpation and non-tender PALPATION: Yes Soft to palpation Extremity: COMMON NORMALS: no joint enlargement and no pedal edema Neuro: COMMON NORMALS: patient oriented x3 and moves all extremities S ENSORIUM/ORIENTATION: Yes alert Skin: COMMON NORMALS: no rashes or lesions noted GENERAL SKIN EXAM: no rashes or lesions noted Sepsis: Is patient septic: Yes Focused sepsis exam performed: Yes F ocused sepsis exam: Awake and alert, no mottling or cyanosis. Good capillary refill. Data 06/25/24 00:00 06/25/24 00:00 A&P Assessment and plan (1) Sepsis: Reviewed vitals, CBC, ABG, CMP, magnesium, chest x-ray on my interpretation pending official read with improved infiltrate from prior study, ER provider note, discussed with ER provider, reviewed recent discharge summary. Sepsis with fever 102.5, sinus tachycardia 113, tachypnea 25 breaths/min. Lactic acidosis lactate of 4. Not given 30 cc/kg resuscitation due to concern for fluid overload with underlying CHF. COVID-positive yesterday. With COPD exacerbation. Concern for possibly developing additional secondary bacterial pneumonia, for now empiric antibiotic coverage with cefepime and vancomycin, monitor for risk of acute encephalopathy, risk of kidney injury, reassess chemistry. Additionally obtain UA. He otherwise denies any GI or integumentary symptoms. Blood cultures been collected, follow-up. (2) COVID-19: Severe COVID-19 infection with fever, dyspnea, cough, tachycardia, tachypnea, lactic acidosis, on 4 L nasal cannula oxygen with dyspnea at rest. Discussed with him and his sister treatment with remdesivir, Decadron, and assessment of D-dimer. Monitor for risk of encephalopathy, hypertension, hyperglycemia with Decadron. Assess for possible complication of PE. VTE prophylaxis with Lovenox. Antitussive. (3) COPD with acute exacerbation: Asthma COPD overlap syndrome: With asthma exacerbation. Serious exacerbation of COPD with dyspnea, tachypnea, purulent productive cough, steroids as above, empiric antibiotic coverage as above, breathing treatments. Collect sputum culture. (4) Chronic hypoxemic respiratory failure: Normally on 4 L nasal cannula for COPD, chronic HFpEF. (5) Hypomagnesemia: Replace magnesium. Recheck level. Plan Chronic HFpEF: EF 78%. Grade 1function on most recent echo in March. Received a dose of Lasix in ER. Volume status. Renal function. Electrolytes. Cognitive impairment: Asks to discuss his condition and care with his sister. Discussed. History of DVT GERD: PPI chronic back pain Other medical problems hold off on additional diuretics for now. Reassess Attestations 2 Medical Necessity Statement*: Admission of over 2 midnights anticipated for assessment management of sepsis, COVID-19, COPD exacerbation and gentleman with underlying COPD, CHF, additional comorbidities as above. and High MDM includes amount and/or complexity of data reviewed/ordered [ previous or external records, resulted lab(s)/test(s), ordered lab(s)/test(s), independent historian, independent test interpretation and other healthcare professional discussion] and described risk of complication, morbidity or mortality of management as documented Diagnoses Sepsis A41.9 COVID-19 U07.1 COPD with acute exacerbation J44.1 Chronic hypoxemic respiratory failure J96.11 Hypomagnesemia E83.42
--- NOTE | 2024-06-25 01:55 | PC.NURSE ---
Report was called to Cassidy BRITO on Med-Surg; all questions and concerns were addressed at time of report.
[2024-06-25] MEDS: vancomycin 1,250 MG/250 ML PIGGYBACK 166.67 MG IV (02:09)
[2024-06-25 02:12] LABS: D Dimer 0.67 ug/mLFEU (0-0.59)
[2024-06-25 02:14] LABS: Reflex Lactate Order REFLEX LACTIC ORDERD
[2024-06-25] MEDS: cefepime 2,000 MG in sodium chloride 0.9% (plus) 50 ML 100 MG IV (02:14)
[2024-06-25] MEDS: enoxaparin 40 mg/0.4 mL Syringe SUBCUT (03:43)
[2024-06-25] MEDS: remdesivir 200 MG in sodium chloride 0.9% (100 ml) 60 ML 100 MG IV (03:44)
[2024-06-25 05:37] LABS: Lactic Acid level (Lactate) 3.3 mmol/L (0.5-2.2)
--- NOTE | 2024-06-25 06:58 | PC.NURSE ---
[facility] nurse.
--- NOTE | 2024-06-25 08:10 | P.PHAVANC_ITS ---
Vancomycin Goal - Goal Vancomycin Goal:: 10-15 mg/L Vancomycin Indication:: Other - Therapy Current therapy:: Cefepime Day of therpy:: Day 1 Actual body weight (kg): 198 lb 12.8 oz [place] body weight: 68.4 Dosing weight (kg): 77.04 - Data Labs: WBC 9.33 10^3/uL (3.29-11.43) 06/25/24 00:00 RBC 4.44 10^6/uL (3.85-5.65) 06/25/24 00:00 Hgb 12.30 g/dL (11.27-16.99) 06/25/24 00:00 Hct 40.1 % (37-53) 06/25/24 00:00 MCV 90.3 fl (82-101) 06/25/24 00:00 MCH 27.7 pg (27-33) 06/25/24 00:00 MCHC 30.7 g/dL (30-55) 06/25/24 00:00 RDW 14.6 % (12.1-15.1) 06/25/24 00:00 Sodium 140 mmol/L (136-145) 06/25/24 00:00 Potassium 3.6 mmol/L (3.5-5.1) 06/25/24 00:00 Chloride 98 mmol/L (98-107) 06/25/24 00:00 Carbon Dioxide 30 mmol/L (22-29) H 06/25/24 00:00 Anion Gap 15.6 (5-19) 06/25/24 00:00 BUN 26 mg/dL (8-23) H 06/25/24 00:00 Creatinine 0.9 mg/dL (0.7-1.2) 06/25/24 00:00 GFR Calculation 84.7 mL/min (90-130) L 06/25/24 00:00 Last dialysis session:: N/A Treatment plan:: new consult Regimen:: TELEPHARMACY NOTE ON VANCOMYCIN DOSING: : Give Vancomycin 1000 mg q 12 hrs with an expected Cpeak of 31.3 mcg/ml and an expected Ctrough of 14.49 mcg/ml STARTING @ 1400 06/25 DOC 1.0 mcg/mL: AUC/DOC: 526.2 I AGREE WITH DOSING. PHARMACY WILL CONTINUE TO FOLLOW UP DAILY
[2024-06-25] MEDS: ipratropium-albuterol 3 mL Neb INHALATION ×3 (08:51→20:03)
[2024-06-25] MEDS: dexamethasone 10 mg/mL INJ 6 MG PO (09:21)
[2024-06-25] MEDS: pantoprazole DR 40 mg Tablet PO (09:22)
--- NOTE | 2024-06-25 12:33 | PM.PN ---
Subjective Subjective: No acute events noted since admission. He complains of feeling weak but denies any significant shortness of breath or chest pain. Reports history of exposure to his sister who has been sick recently and diagnosed with COVID-19 infection. Medications: Reviewed: Yes Vitals/I&O/Wt Last Vital Signs Temp 97.5 F L 06/25/24 11:53 Pulse 76 06/25/24 11:53 Resp 15 06/25/24 11:53 BP 131/79 06/25/24 11:53 Pulse Ox 95 06/25/24 11:53 O2 Del Method Room Air 06/25/24 11:53 O2 Flow Rate 4 06/25/24 08:51 06/24/24 06/25/24 06/25/24 22:59 06:59 14:59 Intake Total 950.000 / 950.000 Balance 950.000 / 950.000 Weight last 48 hrs Weight 90.174 kg Weight 90.174 kg Weight 77.564 kg Physical Exam Narrative: He is alert awake oriented x 3, slow speech not sure of baseline, not in acute distress Chest air entry equal on both sides but decreased, no wheezing or crackles present Cardiovascular normal heart sounds Abdomen soft nontender nondistended normal bowel sounds Extremities no edema noted bilateral lower extremities Data 06/25/24 00:00 06/25/24 00:00 Micro: Microbiology 06/25/24 01:40 Blood Culture - Preliminary Blood SPECIMEN COLLECTED 06/25/24 01:43 Blood Culture - Preliminary Blood SPECIMEN COLLECTED A&P Assessment and plan (1) Sepsis: Reviewed vitals, CBC, ABG, CMP, magnesium, chest x-ray on my interpretation pending official read with improved infiltrate from prior study, ER provider note, discussed with ER provider, reviewed recent discharge summary. Sepsis with fever 102.5, sinus tachycardia 113, tachypnea 25 breaths/min. Lactic acidosis lactate of 4. Not given 30 cc/kg resuscitation due to concern for fluid overload with underlying CHF. COVID-positive yesterday. With COPD exacerbation, for now empiric antibiotic coverage with cefepime and vancomycin, monitor for risk of acute encephalopathy, risk of kidney injury, reassess chemistry. Follow up blood cultures (2) COVID-19: Severe COVID-19 infection with fever, dyspnea, cough, tachycardia, tachypnea, lactic acidosis, on 4 L nasal cannula oxygen with dyspnea at rest. Discussed with him and his sister treatment with remdesivir, Decadron, and assessment of D-dimer. Monitor for risk of encephalopathy, hypertension, hyperglycemia with Decadron. Assess for possible complication of PE. VTE prophylaxis with Lovenox. Antitussive. (3) COPD with acute exacerbation: Asthma COPD overlap syndrome: With asthma exacerbation. Serious exacerbation of COPD with dyspnea, tachypnea, purulent productive cough, steroids as above, empiric antibiotic coverage as above, breathing treatments. Collect sputum culture. Will add mucinex bid (4) Chronic hypoxemic respiratory failure: Normally on 4 L nasal cannula for COPD, chronic HFpEF. currently on 5LNC. (5) Hypomagnesemia: Replace magnesium. Recheck level. Plan Chronic HFpEF: EF 78%. Grade 1function on most recent echo in March. Received a dose of Lasix in ER. Volume status. Renal function. Electrolytes. Cognitive impairment: Asks to discuss his condition and care with his sister. Discussed. History of DVT GERD: PPI Attestations Medical Necessity Statement*: Admission of over 2 midnights anticipated for assessment management of sepsis, COVID-19, COPD exacerbation and gentleman with underlying COPD, CHF, additional comorbidities as above. Time Spent in Patient Care: 20minutes Coding Level of Care Code Acute Code for [facility] Fwd Diagnoses Sepsis A41.9 COVID-19 U07.1 COPD with acute exacerbation J44.1 Chronic hypoxemic respiratory failure J96.11 Hypomagnesemia E83.42 Time Spent (min) 20
[2024-06-25] MEDS: sodium chloride 0.9% 1,000 ML 60 ML IV (13:52)
[2024-06-25] MEDS: vancomycin 1,000 MG in sodium chloride 0.9% 250 ML 250 MG IV (13:52)
[2024-06-25] MEDS: cefepime 1,000 MG in sodium chloride 0.9% (plus) 50 ML 100 MG IV (16:18)
[2024-06-25] MEDS: guaiFENesin-dextromethorphan UDC 10 mL PO (17:48)
[2024-06-25] MEDS: guaiFENesin 600 mg Tablet PO (17:49)
[2024-06-26] VITALS (13 sets, daily range): BP systolic 122–149; BP diastolic 64–82; PULSE 60–87; RESP 18–23; TEMP 35.9–36.9; O2SAT 91–96
[2024-06-26] MEDS: vancomycin 1,000 MG in sodium chloride 0.9% 250 ML 250 MG IV ×2 (02:12→15:13)
[2024-06-26] MEDS: enoxaparin 40 mg/0.4 mL Syringe SUBCUT (02:12)
[2024-06-26] MEDS: ipratropium-albuterol 3 mL Neb INHALATION ×4 (02:40→20:07)
[2024-06-26] MEDS: cefepime 1,000 MG in sodium chloride 0.9% (plus) 50 ML 100 MG IV ×2 (03:29→16:23)
[2024-06-26 04:40] LABS: Hematocrit 36.2 % (37-53); Lymphocytes # 0.7 10^3/uL (0.8-4.8); Lymphocytes % 13.7 %; Mean Corpuscular HGB Conc 30.7 g/dL (30-55); Mean Corpuscular Hemoglobin 27.4 pg (27-33); Mean Corpuscular Volume 89.4 fl (82-101); Mean Platelet Volume 10.9 fL (7.4-10.4); Monocytes # 0.7 10^3/uL (0.2-0.9); Monocytes % 12.2 %; Neutrophils % 73.7 %; Nucleated Red Blood Cells % 0 %; Platelet Count 152 10^3/cmm (157-399); Red Blood Count 4.05 10^6/uL (3.85-5.65); Red Cell Distribution Width 14.7 % (12.1-15.1); White Blood Count 5.42 10^3/uL (3.29-11.43)
[2024-06-26 05:06] LABS: Alanine Aminotransferase 85 U/L (0-41); Albumin Level 3.1 g/dL (3.5-5.2); Alkaline Phosphatase 65 U/L (40-130); Anion Gap 10.2 (5-19); Aspartate Amino Transferase 40 U/L (0-40); Blood Urea Nitrogen 20 mg/dL (8-23); Calcium 7.5 mg/dL (8.5-10.5); Carbon Dioxide 31 mmol/L (22-29); Chloride 101 mmol/L (98-107); Globulin 2.7 g/dL (1.3-4.6); Glomerular Filtration Rate 135.2 mL/min (90-130); Glucose 113 mg/dL (65-115); Magnesium 2.3 mg/dL (1.7-2.3); Osmolality Calculated 291 mOsm/kg (285-295); Potassium 3.2 mmol/L (3.5-5.1); Sodium 139 mmol/L (136-145); Total Bilirubin 0.2 mg/dL (0.15-1.2); Total Protein 5.8 g/dL (6.6-8.7)
[2024-06-26 05:07] LABS: Creatinine Clr Calc Pharmacy 102.9781
[2024-06-26] MEDS: sodium chloride 0.9% 1,000 ML 60 ML IV (07:28)
[2024-06-26] MEDS: remdesivir 100 MG in sodium chloride 0.9% (100 ml) 80 ML IV (07:28)
[2024-06-26] MEDS: pantoprazole DR 40 mg Tablet PO (09:59)
[2024-06-26] MEDS: potassium chloride ER 20 mEq Tablet 40 MEQ PO ×2 (09:59→15:13)
[2024-06-26] MEDS: guaiFENesin 600 mg Tablet PO ×2 (09:59→16:55)
[2024-06-26] MEDS: dexamethasone 10 mg/mL INJ 6 MG PO (10:00)
[2024-06-26 12:20] LABS: Bilirubin Urine Negative (Negative); Blood Urine Negative (Negative); Glucose Urine UA Negative (Normal); Ketones Urine Negative (Negative); Leukocyte Esterase Urine Negative (Negative); Nitrate Urine Negative (Negative); Protein Urine 1+ (Negative); Specific Gravity, Urine 1.026 (1.005-1.030); Urine Appearance Clear (CLEAR); Urine Color Yellow (Yellow); pH Urine 6.5 (5-7)
[2024-06-26 12:22] LABS: Add Urine Microscopic? YES; Bacteria Urine None Seen /hpf; Hyaline Casts Urine 0-4 /lpf; RBC Urine 0-2 /hpf (0-2); Squamous Epithelial Cell Urine 0-5 /hpf (0-5); WBC Urine 0-5 /hpf (0-5)
[2024-06-26 13:51] LABS: Vancomycin Trough 6.3 ug/mL (10-15)
--- NOTE | 2024-06-26 14:14 | PM.PN ---
Subjective Subjective: No acute overnight events noted. Seen him at bedside this morning, still complaining of cough but shortness of breath and chest discomfort resolved. Reports feeling better as compared to admission Medications: Reviewed: Yes Vitals/I&O/Wt Last Vital Signs Temp 97.2 F L 06/26/24 11:42 Pulse 83 06/26/24 13:54 Resp 18 06/26/24 13:49 BP 149/64 06/26/24 11:42 Pulse Ox 94 06/26/24 13:49 O2 Del Method Nasal Cannula 06/26/24 13:49 O2 Flow Rate 5 06/26/24 13:49 06/25/24 06/26/24 06/26/24 22:59 06:59 14:59 Intake Total 420 / 540 1300 / 1840 720 / 720 Output Total 225 / 450 450 / 900 900 / 900 Balance 195 / 90 850 / 940 -180 / -180 Weight last 48 hrs Weight 95.118 kg Weight 90.174 kg Weight 90.174 kg Weight 77.564 kg Physical Exam Narrative: He is alert awake oriented x 3, slow speech not sure of baseline, not in acute distress Chest air entry equal on both sides but decreased, no wheezing or crackles present Cardiovascular normal heart sounds Abdomen soft nontender nondistended normal bowel sounds Extremities no edema noted bilateral lower extremities Data 06/26/24 04:23 06/26/24 04:23 Micro: Microbiology 06/25/24 01:40 Blood Culture - Preliminary Blood NEGATIVE TO DATE 06/25/24 01:43 Blood Culture - Preliminary Blood NEGATIVE TO DATE A&P Assessment and plan (1) Sepsis: Reviewed vitals, CBC, ABG, CMP, magnesium, chest x-ray on my interpretation pending official read with improved infiltrate from prior study, ER provider note, discussed with ER provider, reviewed recent discharge summary. Sepsis with fever 102.5, sinus tachycardia 113, tachypnea 25 breaths/min. Lactic acidosis lactate of 4. Not given 30 cc/kg resuscitation due to concern for fluid overload with underlying CHF. COVID-positive yesterday. With COPD exacerbation, for now empiric antibiotic coverage with cefepime and vancomycin, monitor for risk of acute encephalopathy, risk of kidney injury, reassess chemistry. Chest x-ray showed no acute findings Follow up blood cultures, negative to date (2) COVID-19: Severe COVID-19 infection with fever, dyspnea, cough, tachycardia, tachypnea, lactic acidosis, on 4 L nasal cannula oxygen with dyspnea at rest. Discussed with him and his sister treatment with remdesivir, Decadron, and assessment of D-dimer. Continue current management VTE prophylaxis with Lovenox. Antitussive. (3) COPD with acute exacerbation: Asthma COPD overlap syndrome: With asthma exacerbation. Continue DuoNebs, Mucinex and Robitussin for now (4) Chronic hypoxemic respiratory failure: Normally on 4 L nasal cannula for COPD, chronic HFpEF. currently on 5LNC. (5) Hypomagnesemia: Plan Chronic HFpEF: EF 78%. Grade 1function on most recent echo in March. Received a dose of Lasix in ER. Volume status. Renal function. Electrolytes. Cognitive impairment History of DVT GERD: PPI Attestations Medical Necessity Statement*: Admission of over 2 midnights anticipated for management of sepsis, COVID-19, COPD exacerbation and gentleman with underlying COPD, CHF, additional comorbidities as above. Time Spent in Patient Care: 20minutes Coding Level of Care Code Acute Code for [facility] Fwd Diagnoses Sepsis A41.9 COVID-19 U07.1 COPD with acute exacerbation J44.1 Chronic hypoxemic respiratory failure J96.11 Hypomagnesemia E83.42 Time Spent (min) 20
[2024-06-26] MEDS: metoprolol tartrate 25 mg Tablet 12.5 MG PO (15:12)
[2024-06-26] MEDS: guaiFENesin-dextromethorphan UDC 10 mL PO ×2 (15:13→20:58)
--- NOTE | 2024-06-26 15:53 | PHA.VACGOAL ---
Vancomycin Goal - Goal Vancomycin Goal:: 15-20 mg/L Vancomycin Indication:: Other (SEPSIS) - Therapy Current therapy:: Cefepime Day of therpy:: Day [2]of [] . Actual body weight (kg): 209 lb 11.2 oz - Data Labs: WBC 5.42 10^3/uL (3.29-11.43) 06/26/24 04:23 RBC 4.05 10^6/uL (3.85-5.65) 06/26/24 04:23 Hgb 11.10 g/dL (11.27-16.99) L 06/26/24 04:23 Hct 36.2 % (37-53) L 06/26/24 04:23 MCV 89.4 fl (82-101) 06/26/24 04:23 MCH 27.4 pg (27-33) 06/26/24 04:23 MCHC 30.7 g/dL (30-55) 06/26/24 04:23 RDW 14.7 % (12.1-15.1) 06/26/24 04:23 Sodium 139 mmol/L (136-145) 06/26/24 04:23 Potassium 3.2 mmol/L (3.5-5.1) L 06/26/24 04:23 Chloride 101 mmol/L (98-107) 06/26/24 04:23 Carbon Dioxide 31 mmol/L (22-29) H 06/26/24 04:23 Anion Gap 10.2 (5-19) 06/26/24 04:23 BUN 20 mg/dL (8-23) 06/26/24 04:23 Creatinine 0.6 mg/dL (0.7-1.2) L 06/26/24 04:23 GFR Calculation 135.2 mL/min (90-130) H 06/26/24 04:23 Treatment plan:: change (TROUGH 6.3, 500MG X1 THEN INCREASE TO 1500MG Q12H)
[2024-06-26] MEDS: vancomycin 500 MG in sodium chloride 0.9% (plus) 100 ML 200 MG IV (16:48)
[2024-06-27] VITALS (11 sets, daily range): BP systolic 104–126; BP diastolic 66–74; PULSE 58–81; RESP 17–22; TEMP 36.2–37; O2SAT 92–96
[2024-06-27] MEDS: ipratropium-albuterol 3 mL Neb INHALATION ×4 (02:56→19:48)
[2024-06-27] MEDS: metoprolol tartrate 25 mg Tablet 12.5 MG PO ×2 (03:04→14:34)
[2024-06-27] MEDS: enoxaparin 40 mg/0.4 mL Syringe SUBCUT (03:05)
[2024-06-27] MEDS: guaiFENesin-dextromethorphan UDC 10 mL PO ×4 (03:05→19:27)
[2024-06-27] MEDS: cefepime 1,000 MG in sodium chloride 0.9% (plus) 50 ML 100 MG IV ×2 (03:06→14:33)
[2024-06-27 03:26] LABS: Hematocrit 36.1 % (37-53); Lymphocytes # 0.7 10^3/uL (0.8-4.8); Lymphocytes % 14.3 %; Mean Corpuscular HGB Conc 30.2 g/dL (30-55); Mean Corpuscular Hemoglobin 27.4 pg (27-33); Mean Corpuscular Volume 90.7 fl (82-101); Mean Platelet Volume 10.8 fL (7.4-10.4); Monocytes # 0.4 10^3/uL (0.2-0.9); Monocytes % 8.5 %; Neutrophils # 3.81 10^3/uL (1.8-7.7); Neutrophils % 76.8 %; Nucleated Red Blood Cells % 0 %; Platelet Count 160 10^3/cmm (157-399); Red Blood Count 3.98 10^6/uL (3.85-5.65); Red Cell Distribution Width 15.1 % (12.1-15.1); White Blood Count 4.96 10^3/uL (3.29-11.43)
[2024-06-27 03:41] LABS: Alanine Aminotransferase 61 U/L (0-41); Albumin Level 3.1 g/dL (3.5-5.2); Alkaline Phosphatase 66 U/L (40-130); Aspartate Amino Transferase 26 U/L (0-40); Blood Urea Nitrogen 21 mg/dL (8-23); Carbon Dioxide 29 mmol/L (22-29); Chloride 104 mmol/L (98-107); Creatinine Clr Calc Pharmacy 102.9781; Globulin 2.6 g/dL (1.3-4.6); Glomerular Filtration Rate 135.2 mL/min (90-130); Glucose 133 mg/dL (65-115); Osmolality Calculated 291 mOsm/kg (285-295); Sodium 138 mmol/L (136-145); Total Bilirubin 0.2 mg/dL (0.15-1.2); Total Protein 5.7 g/dL (6.6-8.7)
[2024-06-27 03:45] LABS: Anion Gap 9.2 (5-19); Potassium 4.2 mmol/L (3.5-5.1)
[2024-06-27] MEDS: vancomycin 1,500 MG/300 ML PIGGYBACK 200 MG IV ×2 (03:55→15:17)
[2024-06-27] MEDS: remdesivir 100 MG in sodium chloride 0.9% (100 ml) 80 ML IV (06:29)
[2024-06-27] MEDS: guaiFENesin 600 mg Tablet PO ×2 (08:51→17:48)
[2024-06-27] MEDS: dexamethasone 10 mg/mL INJ 6 MG PO (08:51)
[2024-06-27] MEDS: pantoprazole DR 40 mg Tablet PO (08:51)
[2024-06-27] MEDS: atorvastatin 40 mg Tablet 20 MG PO (08:51)
[2024-06-27] MEDS: OLANZapine 5 mg TABLET 2.5 MG PO (08:51)
[2024-06-27] MEDS: isosorbide mononitrate ER 30 mg Tablet 60 MG PO (08:59)
[2024-06-27] MEDS: citalopram 20 mg Tablet 40 MG PO (08:59)
--- NOTE | 2024-06-27 09:06 | PC.CHAP ---
Pastoral Care Encounter/Spiritual Assessment Type of Contact [] Declined venereal disease investigator visit [] Patient/Family/Request visit [] Outpatient visit [] Follow-up visit [] Physician referral [] Code/Alert [x] Routine visit [] Staff referral [] Actively dying [] Patient sleeping [] Family support [] [] Out of room [] Palliative care [] [] Receiving care in room [] Pre-surgical visit [] Trauma [] Long length of stay [] ICU visit [] Other: Relational/Emotional Strength [] Patient feels connected with others/family/visitors/staff [] Distress [] Loneliness/isolation [] Abandonment Spirituality of Patient [] Person of [place]ova [] Attends Taoism of their [place] [] Believes in Prayer [] Reads Bible or Christianity materials [] There are Spiritual issues to be addressed High School Music Instructor 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 [] Prayer [] Active listening [] Non-anxious presence [] Spiritual/emotional support [] Crisis/trauma care [] Spiritual counseling [] Bereavement support [] Provided bereavement packet [] Provided Bible/devotional materials [] Provided toy/stuffed animal, coloring book to patient or family member [] Provided Communion [] Anointing/[place] [] Salvation [] Completed spiritual assessment [] Other: Impact on Illness or Injury [] Angry [] Fearful [] Anxious [] Often cries [] Exhaustion [] Unable to work [] Unable to attend temple [] Unable to walk/stand [] Unable to read [] Unable to drive [] Unable to eat/drink [] Unable to sleep [] Unable to be with family [] Patient intubated [] Other: Summary air borne Time spent with patient
--- NOTE | 2024-06-27 10:18 | PC.SOCIAL ---
IMM Update pg 2 of IMM Updated and reviewed w/ patient. Copy provided and copy dated, initialed and placed in chart.
--- NOTE | 2024-06-27 12:40 | P.PN_ITS ---
Subjective 2 Subjective: No acute overnight events noted. He has been feeling better today. Complain of less cough. Medications: Reviewed: Yes Vitals/I&O/Wt Last Vital Signs Temp 97.7 F 06/27/24 12:00 Pulse 63 06/27/24 12:00 Resp 19 H 06/27/24 12:00 BP 124/70 06/27/24 12:00 Pulse Ox 94 06/27/24 12:00 O2 Del Method Nasal Cannula 06/27/24 12:00 O2 Flow Rate 4 06/27/24 08:49 FiO2 3 06/27/24 02:57 06/26/24 06/27/24 06/27/24 22:59 06:59 14:59 Intake Total 1340 / 2060 1960 / 4020 480 / 480 Output Total 350 / 1250 1125 / 2375 200 / 200 Balance 990 / 810 835 / 1645 280 / 280 Weight last 48 hrs Weight 95.209 kg Weight 95.073 kg Weight 95.118 kg Physical Exam 2 Narrative: He is alert awake oriented x 3, slow speech not sure of baseline, not in acute distress Chest air entry equal on both sides but decreased, no wheezing or crackles present Cardiovascular normal heart sounds Abdomen soft nontender nondistended normal bowel sounds Extremities no edema noted bilateral lower extremities Data 06/27/24 03:09 06/27/24 03:09 A&P Assessment and plan (1) Sepsis: Reviewed vitals, CBC, ABG, CMP, magnesium, chest x-ray on my interpretation pending official read with improved infiltrate from prior study, ER provider note, discussed with ER provider, reviewed recent discharge summary. Sepsis with fever 102.5, sinus tachycardia 113, tachypnea 25 breaths/min. Lactic acidosis lactate of 4. Not given 30 cc/kg resuscitation due to concern for fluid overload with underlying CHF. COVID-positive yesterday. With COPD exacerbation, for now empiric antibiotic coverage with cefepime and vancomycin, monitor for risk of acute encephalopathy, risk of kidney injury, reassess chemistry. Chest x-ray showed no acute findings Follow up blood cultures, negative to date (2) COVID-19: Severe COVID-19 infection with fever, dyspnea, cough, tachycardia, tachypnea, lactic acidosis, on 4 L nasal cannula oxygen with dyspnea at rest. Discussed with him and his sister treatment with remdesivir day 3 today, Decadron. Continue current management VTE prophylaxis with Lovenox. Antitussive. (3) COPD with acute exacerbation: Asthma COPD overlap syndrome: With asthma exacerbation. Continue DuoNebs, Mucinex and Robitussin for now (4) Chronic hypoxemic respiratory failure: Normally on 4 L nasal cannula for COPD, chronic HFpEF. currently on 5LNC. (5) Hypomagnesemia: Plan Chronic HFpEF: EF 78%. Grade 1function on most recent echo in March. Received a dose of Lasix in ER. Volume status. Renal function. Electrolytes. Cognitive impairment History of DVT GERD: PPI Attestations 2 Medical Necessity Statement*: Admission of over 2 midnights anticipated for management of COVID-19, COPD exacerbation and gentleman with underlying COPD, CHF, additional comorbidities as above. Anticipating discharge on 06/29. Time Spent in Patient Care: 15minutes Coding Level of Care Code Acute Code for [facility] Fwd Diagnoses Sepsis A41.9 COVID-19 U07.1 COPD with acute exacerbation J44.1 Chronic hypoxemic respiratory failure J96.11 Hypomagnesemia E83.42 Time Spent (min) 15
[2024-06-28] VITALS (10 sets, daily range): BP systolic 112–128; BP diastolic 64–78; PULSE 60–88; RESP 18–22; TEMP 36.5–37.1; O2SAT 90–96
[2024-06-28] MEDS: enoxaparin 40 mg/0.4 mL Syringe SUBCUT (02:02)
[2024-06-28] MEDS: cefepime 1,000 MG in sodium chloride 0.9% (plus) 50 ML 100 MG IV ×2 (02:02→13:58)
[2024-06-28] MEDS: metoprolol tartrate 25 mg Tablet 12.5 MG PO ×2 (02:02→13:57)
[2024-06-28] MEDS: guaiFENesin-dextromethorphan UDC 10 mL PO ×4 (02:02→20:37)
[2024-06-28] MEDS: ipratropium-albuterol 3 mL Neb INHALATION ×4 (02:07→19:55)
[2024-06-28 05:37] LABS: Eosinophils % 0.6 %; Hematocrit 35.1 % (37-53); Lymphocytes % 19.7 %; Mean Corpuscular HGB Conc 30.8 g/dL (30-55); Mean Corpuscular Hemoglobin 27.7 pg (27-33); Mean Platelet Volume 10.3 fL (7.4-10.4); Monocytes # 0.5 10^3/uL (0.2-0.9); Monocytes % 9.6 %; Neutrophils # 3.44 10^3/uL (1.8-7.7); Neutrophils % 69.1 %; Nucleated Red Blood Cells % 0 %; Platelet Count 201 10^3/cmm (157-399); Red Cell Distribution Width 14.9 % (12.1-15.1); White Blood Count 4.98 10^3/uL (3.29-11.43)
[2024-06-28 05:56] LABS: Alanine Aminotransferase 48 U/L (0-41); Albumin Level 2.9 g/dL (3.5-5.2); Alkaline Phosphatase 65 U/L (40-130); Aspartate Amino Transferase 18 U/L (0-40); Blood Urea Nitrogen 19 mg/dL (8-23); Carbon Dioxide 31 mmol/L (22-29); Chloride 103 mmol/L (98-107); Creatinine Clr Calc Pharmacy 103.0255; Globulin 2.3 g/dL (1.3-4.6); Glomerular Filtration Rate 113.2 mL/min (90-130); Glucose 121 mg/dL (65-115); Osmolality Calculated 296 mOsm/kg (285-295); Sodium 141 mmol/L (136-145); Total Bilirubin 0.2 mg/dL (0.15-1.2); Total Protein 5.2 g/dL (6.6-8.7)
[2024-06-28 06:07] LABS: Calcium 8.1 mg/dL (8.5-10.5)
[2024-06-28] MEDS: remdesivir 100 MG in sodium chloride 0.9% (100 ml) 80 ML IV (06:21)
[2024-06-28] MEDS: pantoprazole DR 40 mg Tablet PO (07:41)
[2024-06-28] MEDS: isosorbide mononitrate ER 30 mg Tablet 60 MG PO (07:41)
[2024-06-28] MEDS: guaiFENesin 600 mg Tablet PO ×2 (07:41→17:54)
[2024-06-28] MEDS: OLANZapine 5 mg TABLET 2.5 MG PO (07:41)
[2024-06-28] MEDS: citalopram 20 mg Tablet 40 MG PO (07:41)
[2024-06-28] MEDS: atorvastatin 40 mg Tablet 20 MG PO (07:41)
[2024-06-28] MEDS: dexamethasone 10 mg/mL INJ 6 MG PO (07:42)
[2024-06-28] MEDS: vancomycin 1,500 MG/300 ML PIGGYBACK 200 MG IV ×2 (11:22→23:04)
--- NOTE | 2024-06-28 12:04 | PM.PN ---
Subjective Subjective: No acute overnight events noted. He feels better and is happy to go home in a.m. Sister and [id number] at bedside discussing with case management about home hospice. Since he has been having more frequent hospitalization for COPD and congestive heart failure, family intend to go on home hospice Medications: Reviewed: Yes Vitals/I&O/Wt Last Vital Signs Temp 98.2 F 06/28/24 07:56 Pulse 77 06/28/24 08:02 Resp 22 H 06/28/24 08:02 BP 122/78 06/28/24 07:56 Pulse Ox 93 06/28/24 08:02 O2 Del Method Nasal Cannula 06/28/24 08:02 O2 Flow Rate 4 06/28/24 08:02 FiO2 3 06/27/24 02:57 06/27/24 06/28/24 06/28/24 22:59 06:59 14:59 Intake Total 1530 / 2010 290 / 2300 340 / 340 Output Total 800 / 1000 500 / 1500 1100 / 1100 Balance 730 / 1010 -210 / 800 -760 / -760 Weight last 48 hrs Weight 89.494 kg Weight 95.209 kg Weight 95.073 kg Physical Exam Narrative: He is alert awake oriented x 3, slow speech not sure of baseline, not in acute distress Chest air entry equal on both sides but decreased, no wheezing or crackles present Cardiovascular normal heart sounds Abdomen soft nontender nondistended normal bowel sounds Extremities no edema noted bilateral lower extremities Data 06/28/24 05:20 06/28/24 05:20 A&P Assessment and plan (1) Sepsis: Reviewed vitals, CBC, ABG, CMP, magnesium, chest x-ray on my interpretation pending official read with improved infiltrate from prior study, ER provider note, discussed with ER provider, reviewed recent discharge summary. Sepsis with fever 102.5, sinus tachycardia 113, tachypnea 25 breaths/min. Lactic acidosis lactate of 4. Not given 30 cc/kg resuscitation due to concern for fluid overload with underlying CHF. COVID-positive yesterday. With COPD exacerbation, for now empiric antibiotic coverage with cefepime and vancomycin, monitor for risk of acute encephalopathy, risk of kidney injury, reassess chemistry. Chest x-ray showed no acute findings Follow up blood cultures, negative to date (2) COVID-19: Severe COVID-19 infection with fever, dyspnea, cough, tachycardia, tachypnea, lactic acidosis, on 4 L nasal cannula oxygen with dyspnea at rest. Discussed with him and his sister treatment with remdesivir day 4 today, Decadron. Continue current management VTE prophylaxis with Lovenox. Antitussive. (3) COPD with acute exacerbation: Asthma COPD overlap syndrome: With asthma exacerbation. Continue DuoNebs, Mucinex and Robitussin for now. Chest clear to auscultation, cough improved (4) Chronic hypoxemic respiratory failure: Normally on 4 L nasal cannula for COPD, chronic HFpEF. currently on 5LNC. (5) Hypomagnesemia: Plan Chronic HFpEF: EF 78%. Grade 1function on most recent echo in March. Received a dose of Lasix in ER. Volume status. Renal function. Electrolytes. Cognitive impairment History of DVT GERD: PPI Attestations Medical Necessity Statement*: Will finish IV remdesivir fifth dose in a.m. and discharge home with home hospice Time Spent in Patient Care: 10 minutes Coding Level of Care Code Acute Code for [facility] Fwd Diagnoses Sepsis A41.9 COVID-19 U07.1 COPD with acute exacerbation J44.1 Chronic hypoxemic respiratory failure J96.11 Hypomagnesemia E83.42 Time Spent (min) 10
[2024-06-29] VITALS (7 sets, daily range): BP systolic 121–138; BP diastolic 71–88; PULSE 57–67; RESP 16–18; TEMP 36.5–36.7; O2SAT 93–95
[2024-06-29] MEDS: ipratropium-albuterol 3 mL Neb INHALATION ×2 (02:02→08:12)
[2024-06-29] MEDS: enoxaparin 40 mg/0.4 mL Syringe SUBCUT (02:04)
[2024-06-29] MEDS: metoprolol tartrate 25 mg Tablet 12.5 MG PO (02:04)
[2024-06-29] MEDS: guaiFENesin-dextromethorphan UDC 10 mL PO ×2 (02:04→08:08)
[2024-06-29] MEDS: cefepime 1,000 MG in sodium chloride 0.9% (plus) 50 ML 100 MG IV (02:05)
[2024-06-29] MEDS: remdesivir 100 MG in sodium chloride 0.9% (100 ml) 80 ML IV (06:25)
[2024-06-29] MEDS: citalopram 20 mg Tablet 40 MG PO (08:08)
[2024-06-29] MEDS: OLANZapine 5 mg TABLET 2.5 MG PO (08:08)
[2024-06-29] MEDS: dexamethasone 10 mg/mL INJ 6 MG PO (08:08)
[2024-06-29] MEDS: pantoprazole DR 40 mg Tablet PO (08:08)
[2024-06-29] MEDS: atorvastatin 40 mg Tablet 20 MG PO (08:08)
[2024-06-29] MEDS: isosorbide mononitrate ER 30 mg Tablet 60 MG PO (08:08)
[2024-06-29] MEDS: guaiFENesin 600 mg Tablet PO (08:08)
--- NOTE | 2024-06-29 09:09 | PC.SOCIAL ---
IMM Update pg 2 of IMM updated and reviewed w/ patient. Copy provided and copy dated, initialed and placed in chart.
--- NOTE | 2024-06-29 09:57 | PM.DCS ---
Discharge Providers Date of Admission: 06/25/24 01:45 Date of Discharge: June 29, 2024 Attending Provider at Admission: Bhavin Nicholson Attending Provider at Discharge: Rosanna Muñoz MD Primary Care Provider: Katherine Horner NP Diagnoses at Discharge Discharge Diagnosis (1) Sepsis: Status: Acute (2) COVID-19: Status: Acute (3) COPD with acute exacerbation: Status: Acute (4) Chronic hypoxemic respiratory failure: Status: Acute (5) Hypomagnesemia: Status: Acute Reason for Visit Reason for Visit: SOB Brief History: Pleasant 64-year-old gentleman with history of COPD, CHF, recent admission for pneumonia discharged on 06/13 was diagnosed with COVID-19 yesterday with finding of asthma exacerbation, came into ER for evaluation due to cough productive of yellow sputum, dyspnea, malaise, fever, in ER found to be febrile 102.5, sinus tachycardia 113, tachypneic with respiratory rate 25. Lactic acid is 4. After prior discharge she on 4 L nasal cannula oxygen which he usually uses. Chest x-ray without obvious infiltrate. Hospital Course Hospital Course (1) Sepsis: Reviewed vitals, CBC, ABG, CMP, magnesium, chest x-ray on my interpretation pending official read with improved infiltrate from prior study, ER provider note, discussed with ER provider, reviewed recent discharge summary. Sepsis with fever 102.5, sinus tachycardia 113, tachypnea 25 breaths/min. Lactic acidosis lactate of 4. Not given 30 cc/kg resuscitation due to concern for fluid overload with underlying CHF. COVID-positive yesterday. With COPD exacerbation. Concern for possibly developing additional secondary bacterial pneumonia, for now empiric antibiotic coverage with cefepime and vancomycin, monitor for risk of acute encephalopathy, risk of kidney injury, reassess chemistry. Additionally obtain UA. He otherwise denies any GI or integumentary symptoms. Blood cultures been collected, follow-up. (2) COVID-19: Severe COVID-19 infection with fever, dyspnea, cough, tachycardia, tachypnea, lactic acidosis, on 4 L nasal cannula oxygen with dyspnea at rest. Discussed with him and his sister treatment with remdesivir, Decadron, and assessment of D-dimer. Monitor for risk of encephalopathy, hypertension, hyperglycemia with Decadron. Assess for possible complication of PE. VTE prophylaxis with Lovenox. Antitussive. (3) COPD with acute exacerbation: Asthma COPD overlap syndrome: With asthma exacerbation. Serious exacerbation of COPD with dyspnea, tachypnea, purulent productive cough, steroids as above, empiric antibiotic coverage as above, breathing treatments. Collect sputum culture. (4) Chronic hypoxemic respiratory failure: Normally on 4 L nasal cannula for COPD, chronic HFpEF. (5) Hypomagnesemia: Replace magnesium. Recheck level. He received 5 days of remdesivir, IV vancomycin and cefepime. Chest is clear he was clear for any acute findings. He was treated for COPD exacerbation and is doing well to be discharged home with home hospice. Physical Exam Narrative: He is alert awake oriented x 3, slow speech not sure of baseline, not in acute distress Chest air entry equal on both sides but decreased, no wheezing or crackles present Cardiovascular normal heart sounds Abdomen soft nontender nondistended normal bowel sounds Extremities no edema noted bilateral lower extremities Discharge Data Studies Completed and Pending Completed Studies During Hospitalization Category Date Time Status XR chest 1V portable [id number] Stat Exams 06/25/24 00:03 Completed Pending at discharge Category Date Time Status Blood Culture Stat Lab 06/25/24 01:40 Results Radiology Impressions Chest X-Ray 06/25/24 00:03 IMPRESSION: No acute cardiopulmonary findings. Laboratory Results WBC 4.98 10^3/uL (3.29-11.43) 06/28/24 05:20 RBC 3.90 10^6/uL (3.85-5.65) 06/28/24 05:20 Hgb 10.80 g/dL (11.27-16.99) L 06/28/24 05:20 Hct 35.1 % (37-53) L 06/28/24 05:20 MCV 90.0 fl (82-101) 06/28/24 05:20 MCH 27.7 pg (27-33) 06/28/24 05:20 MCHC 30.8 g/dL (30-55) 06/28/24 05:20 RDW 14.9 % (12.1-15.1) 06/28/24 05:20 Plt Count 201 10^3/cmm (157-399) 06/28/24 05:20 MPV 10.3 fL (7.4-10.4) 06/28/24 05:20 Neut % (Auto) 69.1 % 06/28/24 05:20 Lymph % (Auto) 19.7 % 06/28/24 05:20 Granite % (Auto) 9.6 % 06/28/24 05:20 Eos % (Auto) 0.6 % 06/28/24 05:20 Baso % (Auto) 0.0 % 06/28/24 05:20 Neut # (Auto) 3.44 10^3/uL (1.8-7.7) 06/28/24 05:20 Lymph # (Auto) 1.0 10^3/uL (0.8-4.8) 06/28/24 05:20 Granite # (Auto) 0.5 10^3/uL (0.2-0.9) 06/28/24 05:20 Eos # (Auto) 0.0 10^3/uL (0.0-0.8) 06/28/24 05:20 Baso # (Auto) 0.0 10^3/uL (0.0-0.1) 06/28/24 05:20 Nucleated RBC % (auto) 0 % 06/28/24 05:20 Nucleated RBCs # 0.0 /100WBC 06/28/24 05:20 D-Dimer 0.67 ug/mLFEU (0-0.59) H 06/25/24 00:00 Specimen Type Arterial 06/25/24 00:25 Sample Site Brachial, right 06/25/24 00:25 ABG pH 7.47 (7.35-7.45) H 06/25/24 00:25 ABG pCO2 48.0 mmHg (35-45) H 06/25/24 00:25 ABG pO2 64.1 mmHg (80.0-100.0) L 06/25/24 00:25 ABG HCO3 34.8 mmol/L (22-26) H 06/25/24 00:25 ABG Base Excess 9.7 mmol/L (-2.0-2.0) H 06/25/24 00:25 Wilmer Test N/a 06/25/24 00:25 Hematocrit 38.8 % (42-52) L 06/25/24 00:25 Hgb O2 Saturation 93.0 % (95-100) L 06/25/24 00:25 Carboxyhemoglobin 1.1 %THgb (0.4-20.1) 06/25/24 00:25 Methemoglobin 0.3 % (0.4-1.5) L 06/25/24 00:25 Total Hemoglobin 12.7 g/dL (14-18) L 06/25/24 00:25 O2 Delivery Device Nc 06/25/24 00:25 O2 Liters/Min 3.5 % 06/25/24 00:25 Entry Level [employer] ID Huy 06/25/24 00:25 Sodium 141 mmol/L (136-145) 06/28/24 05:20 Potassium 4.0 mmol/L (3.5-5.1) 06/28/24 05:20 Chloride 103 mmol/L (98-107) 06/28/24 05:20 Carbon Dioxide 31 mmol/L (22-29) H 06/28/24 05:20 Anion Gap 11.0 (5-19) 06/28/24 05:20 BUN 19 mg/dL (8-23) 06/28/24 05:20 Creatinine 0.7 mg/dL (0.7-1.2) 06/28/24 05:20 GFR Calculation 113.2 mL/min (90-130) 06/28/24 05:20 Glucose 121 mg/dL (65-115) H 06/28/24 05:20 Calculated Osmolality 296 mOsm/kg (285-295) H 06/28/24 05:20 Lactic Acid 4.0 mmol/L (0.5-2.2) H 06/25/24 00:00 Lactic Acid (Sepsis) 3.3 mmol/L (0.5-2.2) H 06/25/24 04:47 Calcium 8.1 mg/dL (8.5-10.5) L 06/28/24 05:20 Magnesium 2.3 mg/dL (1.7-2.3) 06/26/24 04:23 Total Bilirubin 0.2 mg/dL (0.15-1.2) 06/28/24 05:20 AST 18 U/L (0-40) 06/28/24 05:20 ALT 48 U/L (0-41) H 06/28/24 05:20 Alkaline Phosphatase 65 U/L (40-130) 06/28/24 05:20 NT-Pro-B Natriuret Pep 226 pg/mL (0-125) H 06/25/24 00:00 Total Protein 5.2 g/dL (6.6-8.7) L 06/28/24 05:20 Albumin 2.9 g/dL (3.5-5.2) L 06/28/24 05:20 Globulin 2.3 g/dL (1.3-4.6) 06/28/24 05:20 Urine Color Yellow (Yellow) 06/26/24 12:11 Urine Appearance Clear (CLEAR) 06/26/24 12:11 Urine pH 6.5 (5-7) 06/26/24 12:11 Ur Specific [place] 1.026 (1.005-1.030) 06/26/24 12:11 Urine Protein 1+ (Negative) A 06/26/24 12:11 Urine Glucose (UA) Negative (Normal) 06/26/24 12:11 Urine Ketones Negative (Negative) 06/26/24 12:11 Urine Blood Negative (Negative) 06/26/24 12:11 Urine Nitrate Negative (Negative) 06/26/24 12:11 Urine Bilirubin Negative (Negative) 06/26/24 12:11 Prot Sulfosalicylic Acd Cancelled 06/25/24 12:11 Urine Urobilinogen 1.0 mg/dL (Negative) 06/26/24 12:11 Ur Leukocyte Esterase Negative (Negative) 06/26/24 12:11 Urine RBC 0-2 /hpf (0-2) 06/26/24 12:11 Urine WBC 0-5 /hpf (0-5) 06/26/24 12:11 Ur Squamous Epith Cells 0-5 /hpf (0-5) 06/26/24 12:11 Ur Transition Epith Cell Cancelled 06/25/24 12:11 Ur Renal Epithelial Cell Cancelled 06/25/24 12:11 Calcium Oxalate Crystal Cancelled 06/25/24 12:11 Uric Acid Crystals Cancelled 06/25/24 12:11 Triple Phos Crystals Cancelled 06/25/24 12:11 Other Crystals Cancelled 06/25/24 12:11 Amorphous Sediment Not Reportable 06/26/24 12:11 Urine Bacteria None seen /hpf (NONE) 06/26/24 12:11 Hyaline Casts 0-4 /lpf H 06/26/24 12:11 Fine Granular Casts Cancelled 06/25/24 12:11 Coarse Granular Casts Cancelled 06/25/24 12:11 RBC Casts Cancelled 06/25/24 12:11 Other Casts Cancelled 06/25/24 12:11 Urine Mucus Cancelled 06/25/24 12:11 Urine Trichomonas Cancelled 06/25/24 12:11 Urine Yeast Cancelled 06/25/24 12:11 Urine Sperm Cancelled 06/25/24 12:11 Ur Oval Fat Bodies Cancelled 06/25/24 12:11 Vancomycin Trough 6.3 ug/mL (10-15) L 06/26/24 13:26 Vitals Last Vital Signs Temp 98 F 06/29/24 08:00 Pulse 62 06/29/24 08:15 Resp 16 06/29/24 08:15 BP 138/84 06/29/24 08:00 Pulse Ox 94 06/29/24 08:15 O2 Del Method Nasal Cannula 06/29/24 08:15 O2 Flow Rate 5 06/29/24 08:15 FiO2 3 06/27/24 02:57 Discharge Plan Discharge Patient Disposition: Hospice - Home Condition: Stable Prescriptions: Continued olanzapine [Zyprexa] 2.5 mg tablet 2.5 mg PO DAILY Qty: 90 1RF primidone 50 mg tablet 100 mg PO BEDTIME levalbuterol tartrate 45 mcg/actuation HFA aerosol inhaler 2 inh inhalation Q6H PRN (Reason: shortness of breath or wheezing) Qty: 15 5RF nitroglycerin 0.4 mg tablet, sublingual See Rx Instructions .ROUTE .COMPLEX Qty: 25 0RF Dose Instruction: DISSOLVE ONE TABLET UNDER THE TONGUE EVERY 5 MINUTES NEEDED FOR CHEST PAIN. DO NOT EXCEED A TOTAL OF 3 DOSES IN 15 MINUTES Rx Instructions: DISSOLVE ONE TABLET UNDER THE TONGUE EVERY 5 MINUTES NEEDED FOR CHEST PAIN. DO NOT EXCEED A TOTAL OF 3 DOSES IN 15 MINUTES Tezspire 210 mg/1.91 mL (110 mg/mL) pen injector 210 mg SUBCUT .Q 4 weeks Qty: 1.91 11RF montelukast 10 mg tablet 10 mg PO DAILY Qty: 30 1RF citalopram 40 mg tablet 40 mg PO DAILY Qty: 30 0RF gabapentin 300 mg capsule See Rx Instructions .ROUTE .COMPLEX Qty: 90 0RF Dose Instruction: TAKE 1 CAPSULE BY MOUTH EVERY 8 HOURS Rx Instructions: TAKE 1 CAPSULE BY MOUTH EVERY 8 HOURS bumetanide 1 mg tablet 1 mg PO DAILY Qty: 60 1RF potassium chloride 10 mEq tablet extended release 10 meq PO DAILY Qty: 30 2RF guaifenesin 600 mg Tablet Extended Release 12hr 600 mg PO Q12H PRN (Reason: Congestion) Fasenra Pen 30 mg/mL Auto-Injector 30 mg SUBCUT Q56D Breztri Aerosphere 160-9-4.8 mcg/actuation Hfa Aerosol Inhaler 2 inh INHALATION BID pantoprazole 40 mg tablet,delayed release (DR/EC) 40 mg PO DAILY prednisone 5 mg tablet 10 mg PO DAILY PRN (Reason: asthma) Hold Instructions: Resume on 04/19/24. hold while on steroid taper atorvastatin 20 mg tablet 20 mg PO DAILY isosorbide mononitrate 30 mg tablet extended release 24 hr 60 mg PO DAILY Qty: 60 0RF metoprolol tartrate 25 mg tablet 12.5 mg PO Q12H Qty: 30 0RF ipratropium-albuterol 0.5 mg-3 mg(2.5 mg base)/3 mL Solution For Nebulization 3 ml INHALATION Q6H PRN (Reason: Shortness Of Breath Or Wheezing) No Action (DME) wheelchair See Rx Instructions .Route .MEDSUPPLY Qty: 1 0RF Rx Instructions: As directed (DME) hsopital bed See Rx Instructions .Route .MEDSUPPLY Qty: 1 0RF Rx Instructions: As directed (DME) A7005 Nebulizer Set See Rx Instructions .Route .MEDSUPPLY Qty: 1 0RF Rx Instructions: As directed Discharge Orders: Discharge Order (Routine); Ordered 06/29/24 Ordered By: Rosanna Muñoz Referrals: [facility] [Outside] Katherine Horner, YUNIOR [Primary Care Provider] - Discharge Diet: Cardiac Discharge Activity: Increase activity as tolerated Patient Instructions: Opioid Safety Discharge Attestations Time Spent in Discharge Care*: less than 30 min Quality Metrics Clinical Quality Measures [ No reported AMI, CVA or VTE this stay] Coding Level of Care Code Acute Code for [facility] Fwd Diagnoses Sepsis A41.9 COVID-19 U07.1 COPD with acute exacerbation J44.1 Chronic hypoxemic respiratory failure J96.11 Hypomagnesemia E83.42 Time Spent (min) 15
== END 2024-06-29 12:28 | disposition hospice, home (50) | DRG 871 ==
LOC: ER 06-25 01:39 → MEDSURG 06-25 01:42
PROVIDERS: Admitting Provider Internal Medicine; Emergency Provider Emergency Medicine; PCP Nurse Practitioner Family; Visit Provider Internal Medicine
DX: A41.9 Sepsis, unspecified organism (principal); U07.1 COVID-19; J44.1 Chronic obstructive pulmonary disease with (acute) exacerbation; J96.11 Chronic respiratory failure with hypoxia; I50.22 Chronic systolic (congestive) heart failure; J43.9 Emphysema, unspecified; Z87.891 Personal history of nicotine dependence; E83.42 Hypomagnesemia; K21.9 Gastro-esophageal reflux disease without esophagitis; G31.84 Mild cognitive impairment of uncertain or unknown etiology; Z86.718 Personal history of other venous thrombosis and embolism
CPT/HCPCS: 36415; 36600; 71045; 80053; 80202; 81001; 82805; 83605; 83735; 83880; 85025; 85378; 87040; 93005; 94640; 94664; 96365; 96367; 96372; 96375; 99285; G0378; J0248; J0692; J1100; J1650; J1940; J3370; J3475; J7030; J7040; J7050